=== PATIENT | female | born 1940 | race Caucasian/White ===

== ENCOUNTER 2016-10-15 07:48 | Day surgery (SDC) | payer MEDICARE, MEDICAID ==
[2016-10-11 15:00] LABS: Basophils # (auto) 0 uL; Basophils % (auto) 0.1 % (0.0-2.0); Eosinophils # (auto) 0.3 uL; Eosinophils % (auto) 2.2 % (0.0-7.0); Hematocrit 37.9 % (36.0-46.0); Hemoglobin 12.9 g/dL (12.2-16.2); Lymphocytes # (auto) 2.2 uL; Mean Corpuscular Hemoglobin 31.9 pg (28.0-32.0); Mean Corpuscular Hgb Conc. 33.9 g/dL (32.0-36.0); Mean Corpuscular Volume 94.1 fL (80.0-100.0); Mean Platelet Volume 5.7 fL (7.4-10.4); Monocytes % (auto) 8.1 % (0.0-12.0); Neutrophils # (auto) 9.3 uL; Neutrophils % (auto) 72.6 % (37.0-80.0); Platelet Count (auto) 471 10^3/uL (140-450); White Blood Cell 12.8 10^3/uL (4.4-10.8)
[2016-10-11 15:23] LABS: INR 0.93 (0.9-1.15); Partial Thromboplastin Time 26.1 sec (22.64-33.71)
[2016-10-11 15:51] LABS: Albumin 3.7 g/dL (3.4-5.0); BUN/Creatinine Ratio 20.1; Bilirubin, Total 0.2 mg/dL (0.2-1.0); Calcium 9.7 mg/dL (8.5-10.1); Potassium 3.4 mmol/L (3.5-5.1); Total Protein 7.6 g/dL (6.4-8.2)
[2016-10-12 17:27] LABS: Urine Bilirubin Negative (Negative); Urine Color Yellow (Yellow); Urine Glucose Normal (Normal); Urine Ketone Negative (Negative); Urine Nitrite Negative (Negative); Urine Urobilinogen Normal (Negative); Urine pH 7.5 (5.0-8.0)
[2016-10-12 17:50] LABS: Urine Blood 1+ /uL (Negative)
[~2016-10-15] VITALS: Ht 162.6 cm; Wt 59.0 kg
[~2016-10-15 07:48] MED LIST: AMITRIPTYLINE OR; BUPROPRION OR; ERGO2000 PO; FLUT50SP13; HYDR-4663 PO; HYDR25TA4 OR; LIDO5DIS21 TOP; LISI-646 OR; LORATIDINE OR; MECL-87 PO; PALI6TAB3 PO; POT10T PO; SIMV-13 OR; SYNTHROID OR
[2016-10-15] MEDS ORDERED: MIDAZOLAM HCL 1MG/1ML-2 ML VIAL ONE (09:40)
[2016-10-15] MEDS ORDERED: fentaNYL CITRATE 100 MCG/2 ML VL ONE (09:40)
[2016-10-15] MEDS ORDERED: PROPOFOL 10 MG/ML 20 ML IV ONE (09:41)
[2016-10-15] MEDS ORDERED: ePHEDrine SULFATE 50 MG/ML AMP IV PRN (10:15)
[2016-10-15] MEDS ORDERED: hydrALAZINE HCL 20 MG/ML VL IV PRN (10:15)
[2016-10-15] MEDS ORDERED: ONDANSETRON HCL 4 MG/2 ML VIAL IV ONE (10:15)
[2016-10-15 10:50] VITALS: BP 102/70
[2016-10-15] MEDS ORDERED: fentaNYL CITRATE 100 MCG/2 ML VL IV ONE (11:00)
== END 2016-10-15 10:50 | disposition home or self-care (01) ==
LOC: GI 07:48
PROVIDERS: ATTEND Internal Medicine Gastroenterology
DX: K29.50 Unspecified chronic gastritis without bleeding (principal); K44.9 Diaphragmatic hernia without obstruction or gangrene; N80.9 Endometriosis, unspecified; Z90.710 Acquired absence of both cervix and uterus; F41.0 Panic disorder [episodic paroxysmal anxiety]; F32.9 Major depressive disorder, single episode, unspecified; Z87.891 Personal history of nicotine dependence
CPT/HCPCS: 36415; 43239; 43248; 80053; 81003; 85025; 85610; 85730; 88305; 88342; J2250; J2704; J3010; J7030

== ENCOUNTER 2016-12-24 14:06 | Inpatient (IN) | payer MEDICARE, MEDICAID ==
[~2016-12-24] VITALS: Ht 165.1 cm; Wt 71.8 kg
[2016-12-24] MEDS ORDERED: SODIUM CHLORIDE 0.9% 500 ML IV ONE (14:12)
[2016-12-24] MEDS ORDERED: MORPHINE SULFATE 4 MG/ML SYRG IV ONE (14:15)
[2016-12-24] MEDS ORDERED: ONDANSETRON HCL 4 MG/2 ML VIAL IV ONE (14:15)
[2016-12-24 15:15] LABS: Basophils # (auto) 0 uL; Basophils % (auto) 0.1 % (0.0-2.0); CONDITION Y; DEFINITIVE SEE PRINTOUT; Eosinophils # (auto) 0.1 uL; Eosinophils % (auto) 0.9 % (0.0-7.0); Hematocrit 34.4 % (36.0-46.0); Lymphocytes # (auto) 1.6 uL; Lymphocytes % (auto) 12.3 % (10.0-50.0); Mean Corpuscular Hemoglobin 32.6 pg (28.0-32.0); Mean Corpuscular Hgb Conc. 34.9 g/dL (32.0-36.0); Mean Corpuscular Volume 93.4 fL (80.0-100.0); Mean Platelet Volume 6.4 fL (7.4-10.4); Monocytes # (auto) 1.8 uL; Monocytes % (auto) 14.4 % (0.0-12.0); Neutrophils # (auto) 9.1 uL; Neutrophils % (auto) 72.3 % (37.0-80.0); Platelet Count (auto) 444 10^3/uL (140-450); Red Cell Distribution Width 15.2 % (11.6-16.0); White Blood Cell 12.6 10^3/uL (4.4-10.8)
[2016-12-24 15:21] LABS: Albumin 3.4 g/dL (3.4-5.0); BUN/Creatinine Ratio 16.1; Calcium 8.8 mg/dL (8.5-10.1)
[2016-12-24 15:23] LABS: Bilirubin, Total 0.6 mg/dL (0.2-1.0); Total Protein 7.8 g/dL (6.4-8.2)
[2016-12-24 15:32] LABS: Potassium 2.2 mmol/L (3.5-5.1)
[2016-12-24] MEDS ORDERED: POTASSIUM CHL 20MEQ/100ML 100 ML IV ONE (16:00)
[2016-12-24] MEDS ORDERED: HYDROcodone-ACET 5/325MG TAB PO PRN (18:00)
[2016-12-24] MEDS ORDERED: POTASSIUM CHLORIDE 40 MEQ, LIDOCAINE 1% (LOCAL ANESTH.) 4 ML in SODIUM CHL 0.9% 250 ML IV ONE (18:00)
[2016-12-24] MEDS ORDERED: ONDANSETRON HCL 4 MG/2 ML VIAL IV PRN (18:00)
[2016-12-24] MEDS ORDERED: cefTRIAXone 1GM/50ML D5W 50 ML IV ONE (18:00)
[2016-12-24] MEDS ORDERED: BUSP15TA60 PO (18:09)
[2016-12-24] MEDS ORDERED: MECL1TAB42 PO (18:09)
[2016-12-24] MEDS ORDERED: NITR0.4S29 SL (18:09)
[2016-12-24] MEDS ORDERED: CITA-77 PO (18:09)
[2016-12-24] MEDS ORDERED: FAMO-12 PO (18:09)
[2016-12-24] MEDS ORDERED: SIMV-8 PO (18:09)
[2016-12-24] MEDS ORDERED: ISOS40TA6 PO (18:09)
[2016-12-24] MEDS ORDERED: TRAZ50TA2 PO (18:09)
[2016-12-24] MEDS ORDERED: QUET200T3 PO (18:09)
[2016-12-24] MEDS ORDERED: BUPR150T6 PO (18:09)
[2016-12-24] MEDS ORDERED: LISI-646 PO (18:09)
[2016-12-24] MEDS ORDERED: HYDR25TA4 PO (18:09)
[2016-12-24] MEDS ORDERED: FURO40TA4 PO (18:09)
[2016-12-24] MEDS ORDERED: PANT40T PO (18:09)
[2016-12-24] MEDS ORDERED: LEVO75TA6 PO (18:09)
[2016-12-24] MEDS ORDERED: METO25TA62 PO (18:09)
[2016-12-24] MEDS ORDERED: ASPI81TA13 PO (18:09)
[2016-12-24] MEDS ORDERED: LORA-352 PO (18:09)
[2016-12-24 18:11] LABS: Urine Bilirubin Negative (Negative); Urine Color Yellow (Yellow); Urine Glucose Normal (Normal); Urine Ketone Negative (Negative); Urine Nitrite Negative (Negative); Urine RBC 1 /hpf (0 - 4); Urine Squamous Epithelial Cell FEW /hpf (<5); Urine Urobilinogen Normal (Negative); Urine pH 5.5 (5.0-8.0)
[2016-12-24 18:13] LABS: Urine Blood 1+ /uL (Negative)
[2016-12-24] MEDS ORDERED: MULT1TAB61 PO (18:15)
[2016-12-24] MEDS ORDERED: POTA10SO11 PO (18:15)
[2016-12-24] MEDS ORDERED: FLUT50SP13 (18:15)
[2016-12-24] MEDS ORDERED: HYDR-4663 PO (18:15)
[2016-12-24] MEDS: SOD CHL 0.9%/ KCL 20MEQ 1,000 ML IV SCH (19:17)
[2016-12-24 22:00] VITALS: BP 104/59
[2016-12-24 22:10] VITALS: BP 104/59
[2016-12-24] MEDS: MORPHINE SULF INJ 2 MG/ML SYRINGE 1ML IV PRN (23:28)
[2016-12-25] VITALS (10 sets, daily range): BP systolic 90–111; BP diastolic 48–97
[2016-12-25] MEDS: MORPHINE SULF INJ 2 MG/ML SYRINGE 1ML IV PRN ×5 (05:00→21:02)
[2016-12-25] MEDS: SOD CHL 0.9%/ KCL 20MEQ 1,000 ML IV SCH ×2 (06:02→14:00)
[2016-12-25 06:05] LABS: Basophils # (auto) 0 uL; Basophils % (auto) 0.3 % (0.0-2.0); CONDITION Y; Eosinophils # (auto) 0.1 uL; Eosinophils % (auto) 1.6 % (0.0-7.0); Hemoglobin 11.8 g/dL (12.2-16.2); Lymphocytes # (auto) 2.3 uL; Lymphocytes % (auto) 24.9 % (10.0-50.0); Mean Corpuscular Hemoglobin 32.8 pg (28.0-32.0); Mean Corpuscular Hgb Conc. 34.6 g/dL (32.0-36.0); Mean Corpuscular Volume 94.8 fL (80.0-100.0); Mean Platelet Volume 6.4 fL (7.4-10.4); Monocytes # (auto) 1.4 uL; Monocytes % (auto) 15.6 % (0.0-12.0); Neutrophils # (auto) 5.3 uL; Neutrophils % (auto) 57.6 % (37.0-80.0); Platelet Count (auto) 435 10^3/uL (140-450); Red Cell Distribution Width 15.3 % (11.6-16.0); White Blood Cell 9.2 10^3/uL (4.4-10.8)
[2016-12-25] MEDS: LEVOTHYROXINE SODIUM 25 MCG TAB PO SCH (06:05)
[2016-12-25 06:18] LABS: Calcium 8.4 mg/dL (8.5-10.1); Magnesium 2.2 mg/dL (1.6-2.6); Potassium 3.1 mmol/L (3.5-5.1)
[2016-12-25] MEDS: cefTRIAXone 1GM/50ML D5W 50 ML IV SCH (09:33)
[2016-12-25] MEDS ORDERED: LISINOPRIL 10 MG TAB PO SCH (10:00)
[2016-12-25] MEDS: NITROGLYCERIN 0.4 MG SL TAB SL PRN ×3 (10:59→11:10)
[2016-12-25] MEDS ORDERED: POTASSIUM CHL 20 Meq TABLET PO ONE (14:00)
[2016-12-25] MEDS ORDERED: POTASSIUM CHL 10% (20 MEQ/15ML) ORAL SOLN PO ONE (19:30)
[2016-12-25] MEDS: LORazepam 0.5 MG TAB PO PRN (22:52)
[2016-12-26] MEDS: SOD CHL 0.9%/ KCL 20MEQ 1,000 ML IV SCH ×3 (04:00→18:00)
[2016-12-26 05:00] VITALS: BP 123/68
[2016-12-26 06:21] LABS: Calcium 8.8 mg/dL (8.5-10.1); Potassium 3.6 mmol/L (3.5-5.1)
[2016-12-26 06:29] LABS: BUN/Creatinine Ratio 15.7
[2016-12-26] MEDS: LEVOTHYROXINE SODIUM 25 MCG TAB PO SCH (07:42)
[2016-12-26 08:30] VITALS: BP 103/56
[2016-12-26] MEDS ORDERED: ADENOSINE 57 MG in GIVE UN-DILUTED 0 ML IV ONE (09:30)
[2016-12-26] MEDS: cefTRIAXone 1GM/50ML D5W 50 ML IV SCH (10:39)
[2016-12-26 12:30] VITALS: BP 130/65
[2016-12-26] MEDS: LORazepam 0.5 MG TAB PO PRN ×2 (14:08→22:29)
[2016-12-26] MEDS ORDERED: MORPHINE SULFATE 4 MG/ML SYRG IV PRN ×2 (14:32→14:33)
[2016-12-26 16:25] LABS: BUN/Creatinine Ratio 12.5; Calcium 8.9 mg/dL (8.5-10.1); Potassium 3.5 mmol/L (3.5-5.1)
[2016-12-26 16:52] VITALS: BP 102/65
[2016-12-26 22:39] VITALS: BP 109/64
[2016-12-27 06:07] VITALS: BP 96/50
[2016-12-27] MEDS: LEVOTHYROXINE SODIUM 25 MCG TAB PO SCH (06:53)
[2016-12-27 08:12] VITALS: BP 106/52
[2016-12-27 08:17] VITALS: BP 106/52
[2016-12-27] MEDS: SOD CHL 0.9%/ KCL 20MEQ 1,000 ML IV SCH (10:40)
== END 2016-12-27 12:40 | disposition home health service (06) | DRG 871 ==
LOC: EDBD 14:06 → ER 14:13 → TELE 14:14 → TELE-WESTW 22:00
PROVIDERS: ADMIT Internal Medicine; ATTEND Internal Medicine
DX: A41.9 Sepsis, unspecified organism (principal); J96.00 Acute respiratory failure, unspecified whether with hypoxia or hypercapnia; N17.0 Acute kidney failure with tubular necrosis; E87.1 Hypo-osmolality and hyponatremia; I13.0 Hypertensive heart and chronic kidney disease with heart failure and stage 1 through stage 4 chronic kidney disease, or unspecified chronic kidney disease; N39.0 Urinary tract infection, site not specified; E87.6 Hypokalemia; I10 Essential (primary) hypertension; F41.9 Anxiety disorder, unspecified; E03.9 Hypothyroidism, unspecified; N18.3 Chronic kidney disease, stage 3 (moderate); J43.9 Emphysema, unspecified; I25.10 Atherosclerotic heart disease of native coronary artery without angina pectoris; E78.5 Hyperlipidemia, unspecified; E87.8 Other disorders of electrolyte and fluid balance, not elsewhere classified; F20.9 Schizophrenia, unspecified; F41.0 Panic disorder [episodic paroxysmal anxiety]; F32.9 Major depressive disorder, single episode, unspecified; M19.90 Unspecified osteoarthritis, unspecified site; I50.9 Heart failure, unspecified; K21.9 Gastro-esophageal reflux disease without esophagitis; K29.70 Gastritis, unspecified, without bleeding; Z60.2 Problems related to living alone; E86.0 Dehydration; M47.9 Spondylosis, unspecified; Z91.81 History of falling; Z79.899 Other long term (current) drug therapy; Z90.49 Acquired absence of other specified parts of digestive tract; Z90.710 Acquired absence of both cervix and uterus; Z80.8 Family history of malignant neoplasm of other organs or systems; Z82.49 Family history of ischemic heart disease and other diseases of the circulatory system; Z87.891 Personal history of nicotine dependence
CPT/HCPCS: 36415; 71250; 72040; 80048; 80053; 81001; 83735; 84439; 84443; 84481; 84484; 85025; 87086; 93005; 93017; 94761; 96361; 96365; 96366; 96375; 97116; 97530; J0153; J0696; J2001; J2405; J3480

== ENCOUNTER 2017-01-02 22:24 | Emergency (ER) | payer MEDICARE, MEDICAID ==
[~2017-01-02] VITALS: Ht 162.6 cm; Wt 56.7 kg
[~2017-01-02 22:24] MED LIST changes: +ASPI81TA13 PO; +BUPR150T6 PO; -BUPROPRION OR; +BUSP15TA60 PO; +CITA-77 PO; -FLUT50SP13; -HYDR25TA4 OR; +LEVO75TA6 PO; -LIDO5DIS21 TOP; -LISI-646 OR; +LORA-352 PO; -LORATIDINE OR; -MECL-87 PO; +MECL1TAB42 PO; +MULT1TAB61 PO; +NITR0.4S29 SL; +PANT40T PO; -POT10T PO; +QUET200T3 PO; -SIMV-13 OR; +SIMV-8 PO; -SYNTHROID OR
[2017-01-03 01:17] LABS: Basophils # (auto) 0 uL; Basophils % (auto) 0.3 % (0.0-2.0); CONDITION Y; Eosinophils # (auto) 0.3 uL; Eosinophils % (auto) 3.5 % (0.0-7.0); Hematocrit 34.9 % (36.0-46.0); Hemoglobin 11.9 g/dL (12.2-16.2); Lymphocytes % (auto) 30.3 % (10.0-50.0); Mean Corpuscular Hemoglobin 32.5 pg (28.0-32.0); Mean Corpuscular Volume 95.5 fL (80.0-100.0); Mean Platelet Volume 5.8 fL (7.4-10.4); Monocytes % (auto) 9.5 % (0.0-12.0); Neutrophils # (auto) 5.6 uL; Neutrophils % (auto) 56.4 % (37.0-80.0); Platelet Count (auto) 571 10^3/uL (140-450); Red Cell Distribution Width 15.1 % (11.6-16.0)
[2017-01-03 01:50] LABS: Albumin 3.6 g/dL (3.4-5.0); Potassium 3.8 mmol/L (3.5-5.1)
[2017-01-03 01:52] LABS: BUN/Creatinine Ratio 10.5
[2017-01-03 01:55] LABS: Bilirubin, Total 0.3 mg/dL (0.2-1.0); Total Protein 7.5 g/dL (6.4-8.2)
[2017-01-03 02:54] LABS: Urine Bilirubin Negative (Negative); Urine Blood Negative /uL (Negative); Urine Color Yellow (Yellow); Urine Glucose Normal (Normal); Urine Ketone Negative (Negative); Urine Mucus FEW (None Seen); Urine Nitrite Negative (Negative); Urine RBC 1 /hpf (0 - 4); Urine Squamous Epithelial Cell FEW /hpf (<5); Urine Urobilinogen Normal (Negative)
[2017-01-03] MEDS ORDERED: NITROFURANTOIN (MONO) 100 mg CAP PO ONE (08:30)
[2017-01-03 09:05] VITALS: BP 118/74
== END 2017-01-03 09:13 | disposition home or self-care (01) ==
LOC: ER 22:24 → EDBD 22:24 → ER 01-03 09:13
DX: N39.0 Urinary tract infection, site not specified (principal); M19.90 Unspecified osteoarthritis, unspecified site; E78.5 Hyperlipidemia, unspecified; J43.9 Emphysema, unspecified; I12.9 Hypertensive chronic kidney disease with stage 1 through stage 4 chronic kidney disease, or unspecified chronic kidney disease; N18.9 Chronic kidney disease, unspecified; Z87.891 Personal history of nicotine dependence; E07.9 Disorder of thyroid, unspecified; Z87.440 Personal history of urinary (tract) infections; Z90.710 Acquired absence of both cervix and uterus; Z90.49 Acquired absence of other specified parts of digestive tract
CPT/HCPCS: 36415; 80053; 81001; 85025

== ENCOUNTER → 2017-04-03 | Outpatient (CLI) | payer MEDICARE, MEDICAID ==
[~2017-04-03] MED LIST changes: +ALBU18 IN; +AMIT50TA3 PO; -AMITRIPTYLINE OR; +CHOL20007 PO; -ERGO2000 PO; +FAMO-12 PO; +FLUT50SP13; +FURO40TA4 PO; +HCTZ25T PO; +ISOS60TA24 PO; +LISI-646 PO; +METO25TA62 PO; -MULT1TAB61 PO; -PALI6TAB3 PO; +POTA10SO11 PO; +TRAZ50TA2 PO
[2017-04-03 16:28] LABS: BUN/Creatinine Ratio 13.1; Calcium 9.4 mg/dL (8.5-10.1); Potassium 3.7 mmol/L (3.5-5.1); Uric Acid 5.6 mg/dL (2.6-6.0)
== END | disposition home or self-care (01) ==
LOC: LAB 15:46
PROVIDERS: ATTEND Surgery
DX: N18.3 Chronic kidney disease, stage 3 (moderate) (principal); E03.9 Hypothyroidism, unspecified
CPT/HCPCS: 36415; 80048; 84443; 84550

== ENCOUNTER → 2017-05-30 | Outpatient (CLI) | payer MEDICARE, MEDICAID ==
[~2017-05-30] MED LIST changes: -ALBU18 IN; -BUPR150T6 PO; +CLIN1CAP3 PO; -FAMO-12 PO; -FURO40TA4 PO; -HYDR-4663 PO; +HYDR-4683 PO; -ISOS60TA24 PO; -POTA10SO11 PO
[2017-05-30 16:25] LABS: Basophils # (auto) 0.1 uL; Basophils % (auto) 0.5 % (0.0-2.0); Eosinophils # (auto) 0.3 uL; Hematocrit 35.8 % (36.0-46.0); Hemoglobin 12.3 g/dL (12.2-16.2); Lymphocytes # (auto) 3.1 uL; Mean Corpuscular Hemoglobin 32.8 pg (28.0-32.0); Mean Corpuscular Hgb Conc. 34.3 g/dL (32.0-36.0); Mean Corpuscular Volume 95.8 fL (80.0-100.0); Mean Platelet Volume 6.3 fL (6.9-10.8); Monocytes # (auto) 0.9 uL; Monocytes % (auto) 8.5 % (0.0-12.0); Nucleated Red Blood Cells % 0.1 %; Platelet Count (auto) 341 10^3/uL (140-450); Red Cell Distribution Width 14.8 % (11.8-14.3); White Blood Cell 10.4 10^3/uL (4.4-10.8)
[2017-05-30 16:45] LABS: Albumin 3.6 g/dL (3.4-5.0); BUN/Creatinine Ratio 15.4; Bilirubin, Total 0.4 mg/dL (0.2-1.0); Calcium 9.2 mg/dL (8.5-10.1); Total Protein 7.2 g/dL (6.4-8.2); Uric Acid 7.2 mg/dL (2.6-6.0)
[2017-05-30 16:49] LABS: Potassium 2.9 mmol/L (3.5-5.1)
== END | disposition home or self-care (01) ==
LOC: LAB 14:44
PROVIDERS: ATTEND Physician Assistant
DX: I13.0 Hypertensive heart and chronic kidney disease with heart failure and stage 1 through stage 4 chronic kidney disease, or unspecified chronic kidney disease (principal); N18.3 Chronic kidney disease, stage 3 (moderate); I50.9 Heart failure, unspecified; K29.00 Acute gastritis without bleeding; R94.6 Abnormal results of thyroid function studies; M10.9 Gout, unspecified; J44.9 Chronic obstructive pulmonary disease, unspecified
CPT/HCPCS: 36415; 80053; 80061; 84443; 84550; 85025

== ENCOUNTER → 2017-06-03 | Outpatient (CLI) | payer MEDICARE, MEDICAID ==
[2017-06-03 14:09] LABS: Urine Bilirubin Negative (Negative); Urine Blood TRACE /uL (Negative); Urine Color Yellow (Yellow); Urine Glucose Normal (Normal); Urine Ketone Negative (Negative); Urine Mucus FEW (None Seen); Urine Nitrite Negative (Negative); Urine RBC 1 /hpf (0 - 4); Urine Urobilinogen Normal (Negative); Urine pH 6.5 (5.0-8.0)
[2017-06-03 14:10] LABS: Basophils # (auto) 0 uL; Basophils % (auto) 0.2 % (0.0-2.0); Eosinophils # (auto) 0.6 uL; Hematocrit 37.6 % (36.0-46.0); Hemoglobin 12.9 g/dL (12.2-16.2); Lymphocytes # (auto) 3.1 uL; Lymphocytes % (auto) 42.1 % (10.0-50.0); Mean Corpuscular Hemoglobin 33.1 pg (28.0-32.0); Mean Corpuscular Hgb Conc. 34.3 g/dL (32.0-36.0); Mean Corpuscular Volume 96.6 fL (80.0-100.0); Mean Platelet Volume 6.7 fL (6.9-10.8); Monocytes # (auto) 0.7 uL; Monocytes % (auto) 9.7 % (0.0-12.0); Platelet Count (auto) 358 10^3/uL (140-450); White Blood Cell 7.5 10^3/uL (4.4-10.8)
[2017-06-03 14:33] LABS: Albumin 3.4 g/dL (3.4-5.0); BUN/Creatinine Ratio 20.1; Bilirubin, Total 0.2 mg/dL (0.2-1.0); Calcium 9.2 mg/dL (8.5-10.1); Phosphorus 3.6 mg/dL (2.5-4.90); Potassium 3.9 mmol/L (3.5-5.1); Total Protein 7.2 g/dL (6.4-8.2); Uric Acid 6.4 mg/dL (2.6-6.0)
[2017-06-03 15:03] LABS: Urine Protein/Creatinine Ratio 0.26
== END | disposition home or self-care (01) ==
LOC: LAB 12:51
PROVIDERS: ATTEND Internal Medicine
DX: E87.6 Hypokalemia (principal); I13.0 Hypertensive heart and chronic kidney disease with heart failure and stage 1 through stage 4 chronic kidney disease, or unspecified chronic kidney disease; N18.3 Chronic kidney disease, stage 3 (moderate); I50.9 Heart failure, unspecified; J44.9 Chronic obstructive pulmonary disease, unspecified
CPT/HCPCS: 36415; 80053; 80069; 81001; 82306; 82570; 83970; 84156; 84550; 85025

== ENCOUNTER → 2017-11-28 | Outpatient (CLI) | payer MEDICARE, MEDICAID ==
[2017-11-28 15:24] LABS: Eosinophils # (auto) 0.3 uL; Monocytes # (auto) 0.8 uL
[2017-11-28 15:26] LABS: Basophils # (auto) 0 uL; Basophils % (auto) 0.4 % (0.0-2.0); Eosinophils % (auto) 3.8 % (0.0-7.0); Hematocrit 37.5 % (36.0-46.0); Lymphocytes # (auto) 2.3 uL; Mean Corpuscular Hemoglobin 32.7 pg (28.0-32.0); Mean Corpuscular Hgb Conc. 34.6 g/dL (32.0-36.0); Mean Corpuscular Volume 94.5 fL (80.0-100.0); Monocytes % (auto) 10.5 % (0.0-12.0); Neutrophils % (auto) 54.3 % (37.0-80.0); Platelet Count (auto) 490 10^3/uL (140-450); Red Blood Cells 3.97 10^6/uL (4.0-5.20); Red Cell Distribution Width 13.5 % (11.8-14.3); White Blood Cell 7.4 10^3/uL (4.4-10.8)
[2017-11-28 15:30] LABS: Urine Bacteria NONE SEEN /hpf (None Seen); Urine Blood TRACE /uL (Negative); Urine Mucus FEW (None Seen); Urine Specific Gravity 1.004 (1.001-1.035); Urine WBC 4 /hpf (0 - 5)
[2017-11-28 15:42] LABS: Albumin 3.9 g/dL (3.4-5.0); BUN/Creatinine Ratio 17.2; Calcium 9.6 mg/dL (8.5-10.1); Phosphorus 3.3 mg/dL (2.5-4.90); Uric Acid 5.7 mg/dL (2.6-6.0)
[2017-11-28 17:11] LABS: Creatinine, Urine 7 mg/dL (30.0-125.0); Protein, Urine < 5.0 mg/dL (0.0-11.9)
== END | disposition home or self-care (01) ==
LOC: LAB 14:52
PROVIDERS: ATTEND Internal Medicine
DX: N18.3 Chronic kidney disease, stage 3 (moderate) (principal); D63.1 Anemia in chronic kidney disease; E21.3 Hyperparathyroidism, unspecified; E78.5 Hyperlipidemia, unspecified; M10.9 Gout, unspecified; R80.9 Proteinuria, unspecified; E55.9 Vitamin D deficiency, unspecified; I10 Essential (primary) hypertension; N39.0 Urinary tract infection, site not specified
CPT/HCPCS: 36415; 80048; 80069; 81001; 82306; 82570; 84156; 84443; 84550; 85025

== ENCOUNTER → 2018-02-12 | Outpatient (CLI) | payer MEDICARE, MEDICAID | END | disposition home or self-care (01) | LOC: Rad HDHVI 15:41 | PROVIDERS: ATTEND Internal Medicine Cardiovascular Disease | DX: I49.5 Sick sinus syndrome (principal); I13.0 Hypertensive heart and chronic kidney disease with heart failure and stage 1 through stage 4 chronic kidney disease, or unspecified chronic kidney disease; N18.3 Chronic kidney disease, stage 3 (moderate); I50.43 Acute on chronic combined systolic (congestive) and diastolic (congestive) heart failure; J44.9 Chronic obstructive pulmonary disease, unspecified; Z79.899 Other long term (current) drug therapy | CPT/HCPCS: 93306 ==

== ENCOUNTER → 2018-02-20 | Outpatient (CLI) | payer MEDICARE, MEDICAID ==
[~2018-02-20] VITALS: Ht 160 cm; Wt 55.8 kg
[~2018-02-20] MED LIST changes: +ADENOSINE 47 MG in GIVE UN-DILUTED 0 ML IV ONE; +ADENOSINE 90 MG/30 ML INJ IV ONE
== END | disposition home or self-care (01) ==
LOC: Rad HDHVI 14:10
PROVIDERS: ATTEND Internal Medicine Cardiovascular Disease
DX: I13.0 Hypertensive heart and chronic kidney disease with heart failure and stage 1 through stage 4 chronic kidney disease, or unspecified chronic kidney disease (principal); N18.3 Chronic kidney disease, stage 3 (moderate); I50.43 Acute on chronic combined systolic (congestive) and diastolic (congestive) heart failure; I49.5 Sick sinus syndrome; J44.9 Chronic obstructive pulmonary disease, unspecified
CPT/HCPCS: 78452; 93005; 96374; 96375; A9500; J0153

== ENCOUNTER → 2018-04-24 | Outpatient (CLI) | payer MEDICARE, MEDICAID ==
[~2018-04-24] MED LIST changes: -ADENOSINE 47 MG in GIVE UN-DILUTED 0 ML IV ONE; -ADENOSINE 90 MG/30 ML INJ IV ONE; +ASPI1TAB19 PO; -ASPI81TA13 PO
[2018-04-24 16:51] LABS: Urine Blood Negative /uL (Negative); Urine Specific Gravity 1.008 (1.001-1.035)
[2018-04-24 17:01] LABS: Basophils # (auto) 0 uL; Eosinophils # (auto) 0.3 uL; Hemoglobin 14.1 g/dL (12.2-16.2); Lymphocytes # (auto) 2.4 uL; Monocytes # (auto) 0.6 uL; Nucleated Red Blood Cells % 0.1 %
[2018-04-24 17:04] LABS: Basophils % (auto) 0.5 % (0.0-2.0); Eosinophils % (auto) 3.8 % (0.0-7.0); Lymphocytes % (auto) 33.6 % (10.0-50.0); Mean Corpuscular Hgb Conc. 34.5 g/dL (32.0-36.0); Mean Corpuscular Volume 95.6 fL (80.0-100.0); Monocytes % (auto) 8.8 % (0.0-12.0); Neutrophils # (auto) 3.8 uL; Neutrophils % (auto) 53.3 % (37.0-80.0); Platelet Count (auto) 449 10^3/uL (140-450); Red Blood Cells 4.29 10^6/uL (4.0-5.20); Red Cell Distribution Width 15.2 % (11.8-14.3); White Blood Cell 7.2 10^3/uL (4.4-10.8)
[2018-04-24 17:07] LABS: Albumin 3.8 g/dL (3.4-5.0); Calcium 9.7 mg/dL (8.5-10.1); Potassium 3.9 mmol/L (3.5-5.1)
[2018-04-24 17:11] LABS: BUN/Creatinine Ratio 12.1; Bilirubin, Total 0.4 mg/dL (0.2-1.0); Total Protein 7.8 g/dL (6.4-8.2)
[2018-04-24 17:12] LABS: Free T4 (Free Thyroxine) 1.18 ng/dL (0.89-1.76)
== END | disposition home or self-care (01) ==
LOC: LAB 16:31
PROVIDERS: ATTEND Internal Medicine Cardiovascular Disease
DX: Z00.01 Encounter for general adult medical examination with abnormal findings (principal); E11.9 Type 2 diabetes mellitus without complications; N39.0 Urinary tract infection, site not specified; D51.9 Vitamin B12 deficiency anemia, unspecified; E55.9 Vitamin D deficiency, unspecified; E03.9 Hypothyroidism, unspecified
CPT/HCPCS: 36415; 80053; 80061; 81003; 82306; 82607; 83036; 84439; 84443; 85025

== ENCOUNTER → 2018-07-23 | Outpatient (CLI) | payer MEDICARE, MEDICAID ==
[2018-07-23 15:40] LABS: Basophils # (auto) 0 uL; Basophils % (auto) 0.3 % (0.0-2.0); Eosinophils # (auto) 0.4 uL; Eosinophils % (auto) 5.9 % (0.0-7.0); Hematocrit 39.5 % (36.0-46.0); Hemoglobin 13.4 g/dL (12.2-16.2); Lymphocytes # (auto) 2.9 uL; Lymphocytes % (auto) 39.4 % (10.0-50.0); Mean Corpuscular Hemoglobin 32.2 pg (28.0-32.0); Mean Corpuscular Hgb Conc. 33.9 g/dL (32.0-36.0); Mean Corpuscular Volume 94.8 fL (80.0-100.0); Monocytes # (auto) 0.6 uL; Monocytes % (auto) 8.1 % (0.0-12.0); Neutrophils # (auto) 3.4 uL; Neutrophils % (auto) 46.3 % (37.0-80.0); Nucleated Red Blood Cells % 0.1 %; Platelet Count (auto) 427 10^3/uL (140-450); Red Blood Cells 4.16 10^6/uL (4.0-5.20); Red Cell Distribution Width 13.3 % (11.8-14.3); White Blood Cell 7.3 10^3/uL (4.4-10.8)
[2018-07-23 15:49] LABS: Urine Bacteria NONE SEEN /hpf (None Seen); Urine Blood TRACE /uL (Negative); Urine Hyaline Cast FEW /lpf (0 - 2); Urine Specific Gravity 1.004 (1.001-1.035); Urine WBC <1 /hpf (0 - 5)
[2018-07-23 16:03] LABS: Albumin 3.8 g/dL (3.4-5.0); BUN/Creatinine Ratio 19.2; Calcium 9.2 mg/dL (8.5-10.1); Phosphorus 3.5 mg/dL (2.5-4.90); Potassium 4.7 mmol/L (3.5-5.1); Uric Acid 7.3 mg/dL (2.6-6.0)
[2018-07-23 16:12] LABS: Protein, Urine < 5.0 mg/dL (0.0-11.9)
[2018-07-23 16:14] LABS: Creatinine, Urine 11.2 mg/dL (30.0-125.0)
== END | disposition home or self-care (01) ==
LOC: LAB 15:13
PROVIDERS: ATTEND Internal Medicine
DX: I13.0 Hypertensive heart and chronic kidney disease with heart failure and stage 1 through stage 4 chronic kidney disease, or unspecified chronic kidney disease (principal); I50.9 Heart failure, unspecified; N18.3 Chronic kidney disease, stage 3 (moderate); E55.9 Vitamin D deficiency, unspecified; D63.1 Anemia in chronic kidney disease; E78.5 Hyperlipidemia, unspecified; M10.9 Gout, unspecified; R80.9 Proteinuria, unspecified; E21.3 Hyperparathyroidism, unspecified
CPT/HCPCS: 36415; 80069; 81001; 82306; 82570; 83970; 84156; 84550; 85025

== ENCOUNTER → 2019-01-21 | Outpatient (CLI) | payer MEDICARE, MEDICAID ==
[~2019-01-21] MED LIST changes: +CLIN150C7 PO; -CLIN1CAP3 PO; -HYDR-4683 PO; +HYDR-4833 PO
[2019-01-21 16:13] LABS: Basophils # (auto) 0.1 uL; Basophils % (auto) 0.6 % (0.0-2.0); Eosinophils # (auto) 0.4 uL; Eosinophils % (auto) 3.6 % (0.0-7.0); Hematocrit 41.7 % (36.0-46.0); Hemoglobin 13.9 g/dL (12.2-16.2); Lymphocytes # (auto) 2.9 uL; Lymphocytes % (auto) 28.1 % (10.0-50.0); Mean Corpuscular Hemoglobin 32.4 pg (28.0-32.0); Mean Corpuscular Hgb Conc. 33.4 g/dL (32.0-36.0); Monocytes # (auto) 0.9 uL; Neutrophils % (auto) 58.7 % (37.0-80.0); Platelet Count (auto) 415 10^3/uL (140-450); Red Cell Distribution Width 14.6 % (11.8-14.3); White Blood Cell 10.2 10^3/uL (4.4-10.8)
[2019-01-21 16:48] LABS: Albumin 3.7 g/dL (3.4-5.0); Calcium 9.6 mg/dL (8.5-10.1); Potassium 5.2 mmol/L (3.5-5.1)
[2019-01-21 16:55] LABS: BUN/Creatinine Ratio 15.1; Bilirubin, Total 0.4 mg/dL (0.2-1.0); Total Protein 7.5 g/dL (6.4-8.2)
== END | disposition home or self-care (01) ==
LOC: LAB 15:54
PROVIDERS: ATTEND Physician Assistant
DX: I13.0 Hypertensive heart and chronic kidney disease with heart failure and stage 1 through stage 4 chronic kidney disease, or unspecified chronic kidney disease (principal); I50.30 Unspecified diastolic (congestive) heart failure; N18.3 Chronic kidney disease, stage 3 (moderate); J44.9 Chronic obstructive pulmonary disease, unspecified; N94.6 Dysmenorrhea, unspecified; K21.9 Gastro-esophageal reflux disease without esophagitis
CPT/HCPCS: 36415; 80053; 80061; 84443; 85025

== ENCOUNTER → 2019-02-02 | Outpatient (CLI) | payer MEDICARE, MEDICAID ==
[2019-02-02 16:30] LABS: Urine Blood Negative /uL (Negative); Urine Specific Gravity 1.004 (1.001-1.035)
[2019-02-02 16:53] LABS: Creatinine, Urine 17 mg/dL (30.0-125.0); Protein, Urine < 5.0 mg/dL (0.0-11.9)
[2019-02-02 16:54] LABS: Albumin 3.4 g/dL (3.4-5.0); BUN/Creatinine Ratio 11.1; Phosphorus 3.5 mg/dL (2.5-4.90); Potassium 4.2 mmol/L (3.5-5.1); Uric Acid 7.7 mg/dL (2.6-6.0)
[2019-02-02 17:33] LABS: Basophils # (auto) 0 uL; Basophils % (auto) 0.3 % (0.0-2.0); Eosinophils # (auto) 0.4 uL; Eosinophils % (auto) 5.1 % (0.0-7.0); Hematocrit 37.2 % (36.0-46.0); Hemoglobin 12.4 g/dL (12.2-16.2); Lymphocytes # (auto) 3.1 uL; Lymphocytes % (auto) 35.3 % (10.0-50.0); Mean Corpuscular Hemoglobin 32.4 pg (28.0-32.0); Mean Corpuscular Hgb Conc. 33.4 g/dL (32.0-36.0); Mean Corpuscular Volume 97.2 fL (80.0-100.0); Monocytes # (auto) 0.9 uL; Neutrophils # (auto) 4.3 uL; Neutrophils % (auto) 49.3 % (37.0-80.0); Nucleated Red Blood Cells % 0.1 %; Platelet Count (auto) 342 10^3/uL (140-450); Red Blood Cells 3.83 10^6/uL (4.0-5.20); White Blood Cell 8.7 10^3/uL (4.4-10.8)
== END | disposition home or self-care (01) ==
LOC: LAB 15:49
PROVIDERS: ATTEND Internal Medicine
DX: E55.9 Vitamin D deficiency, unspecified (principal); M10.9 Gout, unspecified; N39.0 Urinary tract infection, site not specified; E21.3 Hyperparathyroidism, unspecified; N18.3 Chronic kidney disease, stage 3 (moderate); D63.1 Anemia in chronic kidney disease
CPT/HCPCS: 36415; 80069; 81003; 82306; 82570; 83970; 84156; 84550; 85025; 87086

== ENCOUNTER 2019-02-03 15:57 | Emergency (ER) | payer MEDICARE, MEDICAID ==
[~2019-02-03] VITALS: Ht 165.1 cm; Wt 63.5 kg
[2019-02-03 16:01] VITALS: BP 121/65
[2019-02-03 16:57] LABS: Urine WBC None Seen /hpf (0 - 5)
[2019-02-03 17:31] LABS: Urine Bacteria NONE SEEN /hpf (None Seen); Urine Blood Negative /uL (Negative); Urine Specific Gravity 1.002 (1.001-1.035)
[2019-02-03 20:06] LABS: Basophils # (auto) 0 uL; Basophils % (auto) 0.4 % (0.0-2.0); Eosinophils # (auto) 0.6 uL; Eosinophils % (auto) 7.1 % (0.0-7.0); Hematocrit 37.1 % (36.0-46.0); Hemoglobin 12.6 g/dL (12.2-16.2); Lymphocytes # (auto) 3.3 uL; Mean Corpuscular Hemoglobin 32.8 pg (28.0-32.0); Mean Corpuscular Hgb Conc. 33.9 g/dL (32.0-36.0); Mean Corpuscular Volume 96.9 fL (80.0-100.0); Monocytes # (auto) 0.9 uL; Monocytes % (auto) 9.7 % (0.0-12.0); Neutrophils # (auto) 4.1 uL; Neutrophils % (auto) 45.8 % (37.0-80.0); Nucleated Red Blood Cells % 0.1 %; Platelet Count (auto) 388 10^3/uL (140-450); Red Blood Cells 3.83 10^6/uL (4.0-5.20); Red Cell Distribution Width 14.1 % (11.8-14.3)
[2019-02-03 20:16] LABS: BUN/Creatinine Ratio 12.6; Calcium 8.8 mg/dL (8.5-10.1); Potassium 3.5 mmol/L (3.5-5.1)
[2019-02-03 20:19] LABS: Albumin 3.4 g/dL (3.4-5.0); Bilirubin, Total 0.2 mg/dL (0.2-1.0); Total Protein 6.6 g/dL (6.4-8.2)
== END 2019-02-03 21:58 | disposition left against medical advice (07) ==
LOC: EDBD 15:57 → ER 16:13
DX: R10.9 Unspecified abdominal pain (principal); R45.851 Suicidal ideations; I48.91 Unspecified atrial fibrillation; I11.0 Hypertensive heart disease with heart failure; I50.9 Heart failure, unspecified; E78.5 Hyperlipidemia, unspecified; Z87.440 Personal history of urinary (tract) infections; Z90.710 Acquired absence of both cervix and uterus; Z87.81 Personal history of (healed) traumatic fracture
CPT/HCPCS: 36415; 74176; 80053; 81001; 85025; 93005

== ENCOUNTER → 2019-03-27 | Outpatient (CLI) | payer MEDICARE, MEDICAID ==
[~2019-03-27] MED LIST changes: +READI-CAT 2 (BARIUM SULF)(VANILLA SMOOTHIE) 450ML ONE
[2019-03-27 15:58] LABS: Urine Blood TRACE /uL (Negative); Urine Specific Gravity 1.006 (1.001-1.035)
== END | disposition home or self-care (01) ==
LOC: Rad HDHVI 15:01
PROVIDERS: ATTEND Internal Medicine Cardiovascular Disease
DX: N26.1 Atrophy of kidney (terminal) (principal); I70.0 Atherosclerosis of aorta; J43.9 Emphysema, unspecified; N39.0 Urinary tract infection, site not specified
CPT/HCPCS: 74176; 81003; 87086

== ENCOUNTER 2019-04-27 10:12 | Day surgery (SDC) | payer MEDICARE, MEDICAID ==
[2019-04-24 15:28] LABS: Basophils % (auto) 0.5 % (0.0-2.0); Eosinophils # (auto) 0.3 uL; Lymphocytes # (auto) 2.4 uL; Mean Corpuscular Volume 96.6 fL (80.0-100.0)
[2019-04-24 15:30] LABS: Basophils # (auto) 0.1 uL; Eosinophils % (auto) 2.5 % (0.0-7.0); Hematocrit 39.3 % (36.0-46.0); Hemoglobin 13.2 g/dL (12.2-16.2); Lymphocytes % (auto) 23.1 % (10.0-50.0); Mean Corpuscular Hemoglobin 32.5 pg (28.0-32.0); Mean Corpuscular Hgb Conc. 33.6 g/dL (32.0-36.0); Monocytes # (auto) 0.7 uL; Monocytes % (auto) 6.8 % (0.0-12.0); Neutrophils # (auto) 6.9 uL; Neutrophils % (auto) 67.1 % (37.0-80.0); Platelet Count (auto) 479 10^3/uL (140-450); Red Blood Cells 4.07 10^6/uL (4.0-5.20); Red Cell Distribution Width 14.6 % (11.8-14.3); Urine Bacteria NONE SEEN /hpf (None Seen); Urine Blood TRACE /uL (Negative); Urine Hyaline Cast FEW /lpf (0 - 2); Urine Specific Gravity 1.005 (1.001-1.035); Urine WBC <1 /hpf (0 - 5); White Blood Cell 10.3 10^3/uL (4.4-10.8)
[2019-04-24 15:51] LABS: Albumin 3.7 g/dL (3.4-5.0); BUN/Creatinine Ratio 17.4; Bilirubin, Total 0.4 mg/dL (0.2-1.0); Calcium 9.4 mg/dL (8.5-10.1); Potassium 4.8 mmol/L (3.5-5.1); Total Protein 7.5 g/dL (6.4-8.2)
[~2019-04-27] VITALS: Ht 157.5 cm; Wt 53.1 kg
[~2019-04-27 10:12] MED LIST changes: +ACE3T PO; +FAMO-12 PO; -FLUT50SP13; +FURO20TA3 PO; -HCTZ25T PO; -HYDR-4833 PO; +HYDR12.56 PO; +ISOS30TA4 PO; +LORA10CA12 PO; -MECL1TAB42 PO; +ONDA-144 PO; -QUET200T3 PO; +RANITAB8 PO; -READI-CAT 2 (BARIUM SULF)(VANILLA SMOOTHIE) 450ML ONE
[2019-04-27] MEDS ORDERED: ONDANSETRON HCL 4 MG/2 ML VIAL ONE (11:08)
[2019-04-27] MEDS ORDERED: PROPOFOL 10 MG/ML 20 ML IV ONE (11:08)
[2019-04-27] MEDS ORDERED: MIDAZOLAM HCL 1MG/1ML-2 ML VIAL ONE (11:08)
[2019-04-27] MEDS ORDERED: SODIUM CHLORIDE LOCK 10 ML ONE (11:08)
[2019-04-27] MEDS ORDERED: fentaNYL CITRATE 100 MCG/2 ML VL ONE (11:08)
[2019-04-27 11:22] LABS: INR 0.99 (0.9-1.15); Partial Thromboplastin Time 27.8 sec (23.64-32.05)
[2019-04-27] MEDS ORDERED: HYDROmorphone HCL 2 MG/ML VL IV PRN (12:30)
[2019-04-27] MEDS ORDERED: MORPHINE SULFATE 4 MG/ML SYR/VIAL IV PRN (12:30)
[2019-04-27] MEDS ORDERED: METOCLOPRAMIDE HCL 5MG/ml INJ 2ml VIAL IV PRN (12:30)
[2019-04-27] MEDS ORDERED: fentaNYL CITRATE 100 MCG/2 ML VL IV PRN (12:30)
[2019-04-27 13:27] VITALS: BP 152/79
== END 2019-04-27 13:40 | disposition home or self-care (01) ==
LOC: GI 10:12
PROVIDERS: ATTEND Internal Medicine Gastroenterology
DX: K92.1 Melena (principal); D12.5 Benign neoplasm of sigmoid colon; K29.50 Unspecified chronic gastritis without bleeding; K57.30 Diverticulosis of large intestine without perforation or abscess without bleeding; K64.8 Other hemorrhoids; K21.9 Gastro-esophageal reflux disease without esophagitis; I70.0 Atherosclerosis of aorta; I12.9 Hypertensive chronic kidney disease with stage 1 through stage 4 chronic kidney disease, or unspecified chronic kidney disease; N18.3 Chronic kidney disease, stage 3 (moderate); D64.9 Anemia, unspecified; I48.91 Unspecified atrial fibrillation; E78.5 Hyperlipidemia, unspecified; J44.9 Chronic obstructive pulmonary disease, unspecified; G47.30 Sleep apnea, unspecified; F41.9 Anxiety disorder, unspecified; F32.9 Major depressive disorder, single episode, unspecified; E66.01 Morbid (severe) obesity due to excess calories; M19.90 Unspecified osteoarthritis, unspecified site; F20.9 Schizophrenia, unspecified; D63.1 Anemia in chronic kidney disease; E03.9 Hypothyroidism, unspecified; Z90.710 Acquired absence of both cervix and uterus; Z68.21 Body mass index [BMI] 21.0-21.9, adult; Z98.890 Other specified postprocedural states; Z79.899 Other long term (current) drug therapy; Z79.82 Long term (current) use of aspirin; Z79.890 Hormone replacement therapy; Z90.49 Acquired absence of other specified parts of digestive tract; Z78.0 Asymptomatic menopausal state
CPT/HCPCS: 36415; 43239; 45385; 80053; 81001; 85025; 85045; 85610; 85730; 88305; 88342; 93005; J2250; J2405; J2704; J3010; J7030

== ENCOUNTER → 2019-05-05 | Outpatient (CLI) | payer MEDICARE, MEDICAID | END | disposition home or self-care (01) | LOC: LAB 15:45 | PROVIDERS: ATTEND Internal Medicine Gastroenterology | DX: R11.2 Nausea with vomiting, unspecified (principal); R10.9 Unspecified abdominal pain | CPT/HCPCS: 36415; 82565; 84520 ==

== ENCOUNTER → 2019-06-17 | Outpatient (CLI) | payer MEDICARE, MEDICAID ==
[~2019-06-17] MED LIST changes: -METO25TA62 PO; +METO25TA93 PO
== END | disposition home or self-care (01) ==
LOC: XY 09:45
PROVIDERS: ATTEND Internal Medicine Gastroenterology
DX: K59.09 Other constipation (principal); R11.2 Nausea with vomiting, unspecified; R10.30 Lower abdominal pain, unspecified
CPT/HCPCS: 78226; A9537

== ENCOUNTER → 2019-07-23 | Outpatient (CLI) | payer MEDICARE, MEDICAID | END | disposition home or self-care (01) | LOC: XY 07:33 | PROVIDERS: ATTEND Internal Medicine Gastroenterology | DX: R11.2 Nausea with vomiting, unspecified (principal); R10.9 Unspecified abdominal pain | CPT/HCPCS: 78264; A9541 ==

== ENCOUNTER → 2019-07-30 | Outpatient (CLI) | payer MEDICARE ==
[2019-07-30 15:57] LABS: Urine Blood TRACE /uL (Negative); Urine Specific Gravity 1.006 (1.001-1.035)
[2019-07-30 16:04] LABS: Basophils # (auto) 0 uL; Basophils % (auto) 0.5 % (0.0-2.0); Eosinophils # (auto) 0.2 uL; Hematocrit 37.7 % (36.0-46.0); Hemoglobin 12.6 g/dL (12.2-16.2); Lymphocytes # (auto) 3.2 uL; Lymphocytes % (auto) 43.4 % (10.0-50.0); Mean Corpuscular Hemoglobin 31.6 pg (28.0-32.0); Mean Corpuscular Hgb Conc. 33.5 g/dL (32.0-36.0); Mean Corpuscular Volume 94.5 fL (80.0-100.0); Monocytes # (auto) 0.6 uL; Neutrophils # (auto) 3.4 uL; Neutrophils % (auto) 45.1 % (37.0-80.0); Nucleated Red Blood Cells % 0.1 %; Platelet Count (auto) 311 10^3/uL (140-450); Red Blood Cells 3.99 10^6/uL (4.0-5.20); Red Cell Distribution Width 14.8 % (11.8-14.3); White Blood Cell 7.4 10^3/uL (4.4-10.8)
[2019-07-30 16:23] LABS: Albumin 3.8 g/dL (3.4-5.0); BUN/Creatinine Ratio 24.2; Calcium 9.3 mg/dL (8.5-10.1); Phosphorus 3.4 mg/dL (2.5-4.90); Potassium 4.3 mmol/L (3.5-5.1); Uric Acid 6.1 mg/dL (2.6-6.0)
[2019-07-30 16:39] LABS: Creatinine, Urine 12 mg/dL (30.0-125.0)
== END | disposition home or self-care (01) ==
LOC: LAB 15:22
PROVIDERS: ATTEND Internal Medicine
DX: E55.9 Vitamin D deficiency, unspecified (principal); R80.8 Other proteinuria
CPT/HCPCS: 36415; 80069; 81003; 82306; 82570; 83970; 84156; 84550; 85025

== ENCOUNTER → 2019-09-02 | Outpatient (CLI) | payer MEDICARE | END | disposition home or self-care (01) | LOC: Rad HDHVI 15:41 | PROVIDERS: ATTEND Internal Medicine Cardiovascular Disease | DX: M21.612 Bunion of left foot (principal); L72.8 Other follicular cysts of the skin and subcutaneous tissue; M79.89 Other specified soft tissue disorders; M25.572 Pain in left ankle and joints of left foot | CPT/HCPCS: 73630 ==

== ENCOUNTER → 2019-09-09 | Outpatient (CLI) | payer MEDICARE, MEDICAID ==
[2019-09-09 12:06] LABS: Basophils # (auto) 0 10 ^3/uL (0-0.2); Basophils % (auto) 0.5 % (0.0-2.0); Eosinophils # (auto) 0.4 10 ^3/uL (0-0.8); Eosinophils % (auto) 4.9 % (0.0-7.0); Hematocrit 34.8 % (36.0-46.0); Hemoglobin 11.8 g/dL (12.2-16.2); Lymphocytes # (auto) 3.2 10 ^3/uL (0.4-5.4); Lymphocytes % (auto) 38.7 % (10.0-50.0); Mean Corpuscular Hemoglobin 32.6 pg (28.0-32.0); Mean Corpuscular Hgb Conc. 33.8 g/dL (32.0-36.0); Mean Corpuscular Volume 96.5 fL (80.0-100.0); Monocytes # (auto) 0.9 10 ^3/uL (0-1.3); Monocytes % (auto) 11.6 % (0.0-12.0); Neutrophils # (auto) 3.6 10 ^3/uL (1.6-8.6); Neutrophils % (auto) 44.3 % (37.0-80.0); Platelet Count (auto) 395 10^3/uL (140-450); Red Blood Cells 3.61 10^6/uL (4.0-5.20); Red Cell Distribution Width 14.8 % (11.8-14.3); White Blood Cell 8.2 10^3/uL (4.4-10.8)
[2019-09-09 12:19] LABS: Albumin 3.3 g/dL (3.4-5.0); Calcium 9.5 mg/dL (8.5-10.1); Potassium 4.3 mmol/L (3.5-5.1)
[2019-09-09 12:25] LABS: BUN/Creatinine Ratio 12.4; Bilirubin, Total 0.2 mg/dL (0.2-1.0)
[2019-09-09 12:28] LABS: Free T4 (Free Thyroxine) 1.16 ng/dL (0.89-1.76)
[2019-09-09 12:34] LABS: Urine Blood Negative /uL (Negative); Urine Specific Gravity 1.005 (1.001-1.035)
== END | disposition home or self-care (01) ==
LOC: Rad HDHVI 09:47
PROVIDERS: ATTEND Internal Medicine Cardiovascular Disease
DX: I08.3 Combined rheumatic disorders of mitral, aortic and tricuspid valves (principal); E03.9 Hypothyroidism, unspecified; K90.9 Intestinal malabsorption, unspecified; N39.0 Urinary tract infection, site not specified; D51.9 Vitamin B12 deficiency anemia, unspecified; I25.10 Atherosclerotic heart disease of native coronary artery without angina pectoris; R53.83 Other fatigue; I31.3 Pericardial effusion (noninflammatory); Z79.899 Other long term (current) drug therapy
CPT/HCPCS: 36415; 80053; 80061; 81003; 82306; 82607; 83036; 84439; 84443; 85025; 93306; 93971

== ENCOUNTER 2019-10-01 17:13 | Inpatient (IN) | payer MEDICARE, MEDICAID ==
[~2019-10-01] VITALS: Ht 157.5 cm; Wt 79.6 kg
[2019-10-01 17:58] LABS: Basophils # (auto) 0 10 ^3/uL (0-0.2); Basophils % (auto) 0.5 % (0.0-2.0); Eosinophils # (auto) 0.3 10 ^3/uL (0-0.8); Eosinophils % (auto) 3.9 % (0.0-7.0); Hematocrit 34.1 % (36.0-46.0); Hemoglobin 11.7 g/dL (12.2-16.2); Lymphocytes # (auto) 2.7 10 ^3/uL (0.4-5.4); Lymphocytes % (auto) 33.5 % (10.0-50.0); Mean Corpuscular Hemoglobin 32.8 pg (28.0-32.0); Mean Corpuscular Hgb Conc. 34.3 g/dL (32.0-36.0); Mean Corpuscular Volume 95.8 fL (80.0-100.0); Monocytes # (auto) 0.5 10 ^3/uL (0-1.3); Monocytes % (auto) 6.3 % (0.0-12.0); Neutrophils # (auto) 4.5 10 ^3/uL (1.6-8.6); Neutrophils % (auto) 55.8 % (37.0-80.0); Nucleated Red Blood Cells % 0.1 %; Platelet Count (auto) 313 10^3/uL (140-450); Red Blood Cells 3.55 10^6/uL (4.0-5.20); Red Cell Distribution Width 14.8 % (11.8-14.3)
[2019-10-01 18:12] LABS: Albumin 3.4 g/dL (3.4-5.0); Anion Gap 5 (5-15); Blood Urea Nitrogen 24 mg/dL (7-18); Calcium 8.4 mg/dL (8.5-10.1); Carbon Dioxide 23 mmol/L (21-32); Chloride 112 mmol/L (98-107); Glucose 96 mg/dL (74-106); Potassium 3.8 mmol/L (3.5-5.1); Sodium 140 mmol/L (136-145)
[2019-10-01] MEDS ORDERED: ASPirin 81 mg TAB PO ONE (18:15)
[2019-10-01 18:18] LABS: Alanine Aminotransferase 14 U/L (13-56); Alkaline Phosphatase 77 U/L (45-117); Aspartate Aminotransferase 16 U/L (15-37); BUN/Creatinine Ratio 16.8; Bilirubin, Total 0.2 mg/dL (0.2-1.0); GFR African American 45 mL/min; GFR Non-African American 38 mL/min; Total Protein 6.6 g/dL (6.4-8.2)
[2019-10-01] MEDS ORDERED: MORPHINE SULF INJ 2 MG/ML SYRINGE 1ML IV PRN (19:45)
[2019-10-01] MEDS ORDERED: NITROGLYCERIN 0.4 MG SL TAB SL PRN (19:45)
--- NOTE | 2019-10-01 20:31 | NUR ---
received pt from er nurse poc reviewed
--- NOTE | 2019-10-01 21:00 | NUR ---
pt oriented to rm 248b, resp even and unlabored on rm, c/o general discomfort, 10/08, all questions and concerns addressed, call light within reach, bed alarm intact, tele sinus rhythm 76.
[2019-10-01] MEDS: FAMOTIDINE 20 MG TAB PO SCH (21:31)
[2019-10-01] MEDS: traZODone HCL 50 MG TAB PO SCH (21:31)
[2019-10-01] MEDS: SODIUM CHLORIDE 0.9% 1,000 ML IV SCH (21:38)
[2019-10-01 22:00] VITALS: BP 123/54
--- NOTE | 2019-10-01 22:11 | NUR ---
Med Rec Patient cannot recall all the medications she takes at home. Patient will have philosophy instructor bring in home medications sometime tomorrow.
--- NOTE | 2019-10-01 22:44 | NUR ---
resting comfortable at this time
--- NOTE | 2019-10-02 00:36 | NUR ---
resting with eyes closed, call light within reach, no c/o discomfort
--- NOTE | 2019-10-02 03:06 | NUR ---
awoke amb to bathroom with assist, no c/o chest pain
[2019-10-02 05:00] VITALS: BP 156/78
--- NOTE | 2019-10-02 06:27 | NUR ---
awoke amb to bathroom with assist, pt c/o sob after amb, o2 2l on pt at this time resp even and unlabored, sats 95%
[2019-10-02] MEDS: LEVOTHYROXINE SODIUM 25 MCG TAB PO SCH (06:33)
[2019-10-02] MEDS: SODIUM CHLORIDE 0.9% 1,000 ML IV SCH ×2 (06:33→18:13)
--- NOTE | 2019-10-02 06:52 | NUR ---
resting with eyes closed, resp even and unlabored, report given to am nurse poc reviewed
[2019-10-02 09:12] VITALS: BP 158/82
[2019-10-02] MEDS ORDERED: PATIENTS OWN MEDICATION (Levothyroxine Sodium 1 TAB) PO SCH (10:00)
[2019-10-02] MEDS ORDERED: PATIENTS OWN MEDICATION (Metoprolol Succinate (Metoprolol Succinate Er) 25 MG) PO SCH (10:00)
[2019-10-02] MEDS: METOPROLOL SUCCINATE XL 50 MG TAB PO SCH (10:22)
[2019-10-02 13:12] VITALS: BP 139/72
[2019-10-02 17:00] VITALS: BP 152/80
--- NOTE | 2019-10-02 19:56 | NUR ---
RECEIVED PT FROM DAY RN POC REVIEWED
[2019-10-02 21:00] VITALS: BP 157/80
--- NOTE | 2019-10-02 22:22 | NUR ---
c/o general arthritis pain 02/07 medicated as ordered,
[2019-10-02] MEDS: FAMOTIDINE 20 MG TAB PO SCH (22:25)
[2019-10-02] MEDS: traZODone HCL 50 MG TAB PO SCH (22:25)
--- NOTE | 2019-10-03 01:06 | NUR ---
resting with eyes closed, call light within reach bed alarm intact
[2019-10-03 04:30] VITALS: BP 155/76
[2019-10-03] MEDS: SODIUM CHLORIDE 0.9% 1,000 ML IV SCH ×3 (06:26→22:20)
[2019-10-03] MEDS: LEVOTHYROXINE SODIUM 25 MCG TAB PO SCH (06:27)
--- NOTE | 2019-10-03 06:46 | NUR ---
awoke amb to bathroom with assist, no c/o pain or discomfort, will report off to am nurse
--- NOTE | 2019-10-03 08:00 | NUR ---
Opening Shift Note Assumed care of patient, awake, alert, and oriented. No S/S of distress/SOB or pain. Bed in lowest locked position, bed rails up x2, call light within reach. Instructed on POC and to call for assist PRN. Will continue to monitor for changes Q1hr and PRN.
[2019-10-03 08:49] VITALS: BP 153/81
[2019-10-03] MEDS: METOPROLOL SUCCINATE XL 50 MG TAB PO SCH (09:49)
--- NOTE | 2019-10-03 11:44 | NUR ---
PAGED DR OCONNELL RE: PATIENT HOME MEDICATIONS. AWAITING RETURN CALL. WILL CONTINUE TO MONITOR
--- NOTE | 2019-10-03 12:45 | NUR ---
MD CALL RECEIVED RETURN CALL FROM DR OCONNELL RE: PATIENT HOME MEDICATIONS. NEW ORDERS RECEIVED/ WILL CARRY OUT.
--- NOTE | 2019-10-03 13:10 | NUR ---
PAIN PATIENT C/O 6/10 PAIN TO LOWER ABDOMEN. WILL MEDICATE PER MD ORDERS
[2019-10-03 13:12] VITALS: BP 150/74
[2019-10-03] MEDS: HYDROcodone-ACET 10/325MG TAB PO PRN ×2 (13:31→20:15)
--- NOTE | 2019-10-03 15:21 | NUR ---
IV insertion IV access obtained, via clean sterile technique by inserting 22 gauge catheter at RFA after 2 attempts. IV secured properly. No trauma to site. Patient tolerated well. IV removal IV DC'd with clean sterile technique, catheter fully intact. Pressure dressing applied to site. Patient tolerated well.
[2019-10-03 16:58] VITALS: BP 129/68
[2019-10-03 21:00] VITALS: BP 144/70
[2019-10-03] MEDS: traZODone HCL 50 MG TAB PO SCH (22:17)
[2019-10-03] MEDS: FAMOTIDINE 20 MG TAB PO SCH (22:18)
[2019-10-04 05:43] VITALS: BP 148/83
[2019-10-04] MEDS: LEVOTHYROXINE SODIUM 25 MCG TAB PO SCH (07:20)
--- NOTE | 2019-10-04 07:40 | NUR ---
PAIN PATIENT C/O 6/10 PAIN TO LOWER ABDOMEN. WILL MEDICATE PER MD ORDERS
--- NOTE | 2019-10-04 07:40 | NUR ---
Opening Shift Note Assumed care of patient, awake, alert, and oriented. No S/S of distress/SOB. Bed in lowest locked position, bed rails up x2, call light within reach. Instructed on POC and to call for assist PRN. Will continue to monitor for changes Q1hr and PRN.
[2019-10-04] MEDS: SODIUM CHLORIDE 0.9% 1,000 ML IV SCH ×2 (07:45→17:59)
[2019-10-04] MEDS: HYDROcodone-ACET 10/325MG TAB PO PRN ×2 (07:49→16:19)
[2019-10-04 09:00] VITALS: BP 151/97
[2019-10-04] MEDS: METOPROLOL SUCCINATE XL 50 MG TAB PO SCH (09:28)
--- NOTE | 2019-10-04 11:20 | NUR ---
AMBULATE PATIENT AMBULATING HALLS. NO S/S OF DISTRESS, SOB, OR PAIN. WILL CONTINUE TO MONITOR
[2019-10-04 13:00] VITALS: BP 139/79
--- NOTE | 2019-10-04 14:30 | NUR ---
AMBULATE PATIENT AMBULATING HALLS. NO S/S OF DISTRESS, SOB, OR PAIN. WILL CONTINUE TO MONITOR
--- NOTE | 2019-10-04 16:10 | NUR ---
PAIN PATIENT C/O 6/10 PAIN TO LOWER BACK. PATIENT STATING "HER ARTHRITIS IS HURTING HER SO BAD." WILL MEDICATE PER MD ORDERS
[2019-10-04 17:00] VITALS: BP 156/73
[2019-10-04 22:00] VITALS: BP 152/80
[2019-10-04] MEDS: FAMOTIDINE 20 MG TAB PO SCH (22:09)
[2019-10-04] MEDS: traZODone HCL 50 MG TAB PO SCH (22:09)
[2019-10-05 01:56] LABS: Urine WBC None Seen /hpf (0 - 5)
[2019-10-05 03:06] LABS: Urine Bacteria NONE SEEN /hpf (None Seen); Urine Blood 1+ /uL (Negative); Urine Specific Gravity 1.007 (1.001-1.035)
[2019-10-05] MEDS: SODIUM CHLORIDE 0.9% 1,000 ML IV SCH ×2 (03:45→13:41)
[2019-10-05 05:00] VITALS: BP 140/87
[2019-10-05 05:54] LABS: Basophils # (auto) 0 10 ^3/uL (0-0.2); Basophils % (auto) 0.2 % (0.0-2.0); Eosinophils # (auto) 0.5 10 ^3/uL (0-0.8); Eosinophils % (auto) 6.4 % (0.0-7.0); Hematocrit 36.2 % (36.0-46.0); Hemoglobin 12.3 g/dL (12.2-16.2); Mean Corpuscular Hemoglobin 32.6 pg (28.0-32.0); Mean Corpuscular Hgb Conc. 33.9 g/dL (32.0-36.0); Mean Corpuscular Volume 96.3 fL (80.0-100.0); Monocytes # (auto) 0.8 10 ^3/uL (0-1.3); Monocytes % (auto) 9.1 % (0.0-12.0); Neutrophils % (auto) 48.3 % (37.0-80.0); Nucleated Red Blood Cells % 0.2 %; Platelet Count (auto) 303 10^3/uL (140-450); Red Blood Cells 3.76 10^6/uL (4.0-5.20); Red Cell Distribution Width 14.7 % (11.8-14.3); White Blood Cell 8.4 10^3/uL (4.4-10.8)
[2019-10-05 06:16] LABS: INR 0.99 (0.9-1.15); Partial Thromboplastin Time 27.3 sec (23.64-32.05)
[2019-10-05 06:19] LABS: Chloride 113 mmol/L (98-107); Potassium 3.5 mmol/L (3.5-5.1); Sodium 143 mmol/L (136-145)
[2019-10-05 06:30] LABS: Alanine Aminotransferase 13 U/L (13-56); Alkaline Phosphatase 74 U/L (45-117); Anion Gap 6 (5-15); Aspartate Aminotransferase 18 U/L (15-37); BUN/Creatinine Ratio 21.1; Bilirubin, Total 0.4 mg/dL (0.2-1.0); Blood Urea Nitrogen 16 mg/dL (7-18); Carbon Dioxide 24 mmol/L (21-32); GFR African American 94 mL/min; GFR Non-African American 78 mL/min; Glucose 97 mg/dL (74-106); Total Protein 6.4 g/dL (6.4-8.2)
[2019-10-05] MEDS: HYDROcodone-ACET 10/325MG TAB PO PRN ×3 (07:01→18:40)
--- NOTE | 2019-10-05 07:30 | NUR ---
Opening Shift Note Received report. Assumed care of patient, awake and alert laying in bed in semi-fowlers position. Patient is on room air with even and unlabored respirations. No S/S of distress/SOB or pain at this time. Bed is in lowest position, wheels are locked, side rails up x2 and call light is with in reach. Pt is currently awaiting procedure, pt remains NPO and IV is patent and intact. Instructed on POC and to call for assist PRN, will continue to monitor for changes Q1hr and PRN.
[2019-10-05] MEDS: LEVOTHYROXINE SODIUM 25 MCG TAB PO SCH (07:51)
[2019-10-05] MEDS ORDERED: IOHEXOL 350 MG/ML 100ML IJ ONE (08:38)
[2019-10-05] MEDS ORDERED: LIDOCAINE 2%HCL (LOCAL ANESTH.) INJ 20ML MDV ONE (08:38)
--- NOTE | 2019-10-05 08:40 | NUR ---
PT OFF UNIT PT TRANSPORTED OFF UNIT TO WOOL FLEECE GRADER. PT IS ALERT AND AWAKE. PT IS ON RA WITH NO S/S OF SOB.DISTRESS OR PAIN. PT TRANSPORTED ON BED.
[2019-10-05 09:00] VITALS: BP 141/89
[2019-10-05] MEDS ORDERED: fentaNYL CITRATE 100 MCG/2 ML VL ONE (09:13)
[2019-10-05] MEDS ORDERED: ANGIOMAX 250 MG VIAL IV ONE (09:13)
[2019-10-05] MEDS ORDERED: SODIUM CHL 0.9% 50 ML ONE (09:14)
[2019-10-05] MEDS ORDERED: MIDAZOLAM HCL 1MG/1ML-2 ML VIAL ONE (09:14)
[2019-10-05] MEDS ORDERED: CLOPIDOGREL 300 MG TAB ONE (09:50)
[2019-10-05] MEDS ORDERED: ASPirin 81 mg TAB ONE (09:50)
[2019-10-05] MEDS: METOPROLOL SUCCINATE XL 50 MG TAB PO SCH (10:00)
--- NOTE | 2019-10-05 11:30 | NUR ---
PT BACK TO UNIT PT RETURNED TO UNIT FROM BUSINESS RULES ANALYST. PT IS ALERT AND AWAKE WITH EVEN AND UNLABORED RESPIRATIONS. VSS. INCISION TO RIGHT GROIN IS C/D/I. SITE IS SLIGHTLY TENDER TO TOUCH BUT SITE IS SOFT, NO EDEMA, OR BLEEDING NOTED. WILL CONTINUE TO MONITOR Q1H AND PRN.
--- NOTE | 2019-10-05 12:30 | NUR ---
PAIN PT C/O PAIN IN BILATERAL LEGS AND INCISION SITE. WILL GIVE PRN NORCO. WILL CONTINUE TO MONITOR Q1H AND PRN.
--- NOTE | 2019-10-05 15:33 | NUR ---
Nutrition Assessment Notes Please refer to link for full assessment notes. Est energy needs: 2363-8404 kcals (12-15 kcal/kgBW) Est protein needs: 67-74 gms/day (1.0-1.1 gm/kgAdjBW) Will continue to monitor and reassess prn. Addendum: 10/05/19 at [address] Amended: Links added.
--- NOTE | 2019-10-05 19:04 | NUR ---
RECEIVED REPORT FROM DAY RN POC REVIEWED
--- NOTE | 2019-10-05 21:18 | NUR ---
resting on side of bed resp even and unlabored denies pain or discomfort
[2019-10-05] MEDS: traZODone HCL 50 MG TAB PO SCH (21:55)
[2019-10-05] MEDS: FAMOTIDINE 20 MG TAB PO SCH (21:55)
[2019-10-05 22:00] VITALS: BP 131/71
--- NOTE | 2019-10-05 22:35 | NUR ---
pt transferred to 222a with all property
--- NOTE | 2019-10-06 04:26 | NUR ---
awoke amb to bathroom, no c/o discomfort or pain.
[2019-10-06 05:00] VITALS: BP 136/84
[2019-10-06] MEDS: HYDROcodone-ACET 10/325MG TAB PO PRN ×2 (05:46→13:19)
[2019-10-06] MEDS: LEVOTHYROXINE SODIUM 25 MCG TAB PO SCH (06:07)
--- NOTE | 2019-10-06 07:03 | NUR ---
report given to am nurse poc reviewed
--- NOTE | 2019-10-06 08:00 | NUR ---
Morning note Patient resting in bed with even and unlabored respirations, no distress noted. Instructed patient on POC, fall precautions and to call for assistance as needed. Patient verbalized understanding. Fall precautions in place with call light within reach. Dressing to the right groin is clean, dry and intact with no swelling or bleeding noted.
[2019-10-06 09:05] VITALS: BP 148/93
[2019-10-06] MEDS: SODIUM CHLORIDE 0.9% 1,000 ML IV SCH ×2 (09:45)
[2019-10-06] MEDS: METOPROLOL SUCCINATE XL 50 MG TAB PO SCH (09:49)
[2019-10-06] MEDS ORDERED: CLOPIDOGREL BISULFATE 75 MG TAB PO SCH (10:00)
[2019-10-06] MEDS ORDERED: ASPirin 81 mg TAB PO SCH (10:00)
--- NOTE | 2019-10-06 11:51 | NUR ---
RE: Discharge Discharge order received from Dr. Modi. Updated MD on patient's c/o "kidney pain" and CP. MD verbalized understanding.
[2019-10-06 13:00] VITALS: BP 157/74
--- NOTE | 2019-10-06 14:25 | NUR ---
Prescription called into patient's preferred pharmacy.
--- NOTE | 2019-10-06 15:03 | NUR ---
Discharge Discharge education and paperwork given to the patient per MD order. Patient instructed to call PCP and Dr. Modi to schedule a follow up appointment. Patient verbalized understanding. IV removed with clean technique, catheter intact. Dressing applied. patient tolerated well, no trauma to site. Telemonitor removed. Informed patient that discharge prescription has been called into her preferred pharmacy. Patient verbalized understanding. Respirations even and unlabored on room air, no distress noted. Patient has contacted her transportation. Patient reports having all personal belongings.
--- NOTE | 2019-10-06 16:03 | NUR ---
Transportation arrived to hospital Patient taken to hospital lobby via wheelchair, accompanied by staff member. Respirations even and unlabored respirations, no distress noted. Dressing to the right groin is clean, dry and intact with no bleeding or swelling noted.
== END 2019-10-06 16:03 | disposition home or self-care (01) | DRG 246 ==
LOC: EDBD 17:13 → EDUNIT# 17:13 → ER 17:13 → TELE-EAST 17:14 → TELE-CENTR 10-05 22:34
PROVIDERS: ADMIT Internal Medicine Cardiovascular Disease; ATTEND Internal Medicine Cardiovascular Disease
PROC: 4A023N7 Measurement of Cardiac Sampling and Pressure, Left Heart, Percutaneous Approach (ICD-10-PCS; principal; 2019-10-05)
PROC: 027034Z Dilation of Coronary Artery, One Artery with Drug-eluting Intraluminal Device, Percutaneous Approach (ICD-10-PCS; 2019-10-05)
PROC: B2111ZZ Fluoroscopy of Multiple Coronary Arteries using Low Osmolar Contrast (ICD-10-PCS; 2019-10-05)
PROC: 4A033BC Measurement of Arterial Pressure, Coronary, Percutaneous Approach (ICD-10-PCS; 2019-10-05)
PROC: B2151ZZ Fluoroscopy of Left Heart using Low Osmolar Contrast (ICD-10-PCS; 2019-10-05)
DX: I25.110 Atherosclerotic heart disease of native coronary artery with unstable angina pectoris (principal); I50.31 Acute diastolic (congestive) heart failure; I24.9 Acute ischemic heart disease, unspecified; I13.0 Hypertensive heart and chronic kidney disease with heart failure and stage 1 through stage 4 chronic kidney disease, or unspecified chronic kidney disease; D64.9 Anemia, unspecified; M19.90 Unspecified osteoarthritis, unspecified site; N18.3 Chronic kidney disease, stage 3 (moderate); I73.9 Peripheral vascular disease, unspecified; Z90.710 Acquired absence of both cervix and uterus; E03.9 Hypothyroidism, unspecified; F41.9 Anxiety disorder, unspecified; G89.4 Chronic pain syndrome; Z79.82 Long term (current) use of aspirin; Z79.899 Other long term (current) drug therapy; Z80.1 Family history of malignant neoplasm of trachea, bronchus and lung; Z80.6 Family history of leukemia; Z80.8 Family history of malignant neoplasm of other organs or systems; Z82.49 Family history of ischemic heart disease and other diseases of the circulatory system; Z87.440 Personal history of urinary (tract) infections; Z87.891 Personal history of nicotine dependence; I48.91 Unspecified atrial fibrillation
CPT/HCPCS: 36415; 71045; 80053; 81001; 84484; 85025; 85610; 85730; 86850; 86900; 86901; 92928; 93005; 93458; 93571; 99152; 99153; C1874; C1887; G0378; J2250

== ENCOUNTER → 2019-11-02 | Outpatient (CLI) | payer MEDICARE, MEDICAID | END | disposition home or self-care (01) | LOC: Rad HDHVI 15:45 | PROVIDERS: ATTEND Internal Medicine Cardiovascular Disease | DX: I25.10 Atherosclerotic heart disease of native coronary artery without angina pectoris (principal); I10 Essential (primary) hypertension; R42 Dizziness and giddiness | CPT/HCPCS: 93306 ==

== ENCOUNTER → 2020-02-10 | Outpatient (CLI) | payer MEDICARE, MEDICAID ==
[2020-02-10 15:44] LABS: Basophils # (auto) 0 10 ^3/uL (0-0.2); Basophils % (auto) 0.5 % (0.0-2.0); Eosinophils # (auto) 0.1 10 ^3/uL (0-0.8); Eosinophils % (auto) 1.2 % (0.0-7.0); Hematocrit 36.8 % (36.0-46.0); Hemoglobin 12.2 g/dL (12.2-16.2); Lymphocytes % (auto) 26.5 % (10.0-50.0); Mean Corpuscular Hemoglobin 31.3 pg (28.0-32.0); Mean Corpuscular Hgb Conc. 33.3 g/dL (32.0-36.0); Monocytes # (auto) 0.6 10 ^3/uL (0-1.3); Monocytes % (auto) 7.9 % (0.0-12.0); Neutrophils # (auto) 4.9 10 ^3/uL (1.6-8.6); Neutrophils % (auto) 63.9 % (37.0-80.0); Platelet Count (auto) 388 10^3/uL (140-450); Red Blood Cells 3.91 10^6/uL (4.0-5.20); Red Cell Distribution Width 14.6 % (11.8-14.3); White Blood Cell 7.7 10^3/uL (4.4-10.8)
[2020-02-10 16:21] LABS: Potassium 3.7 mmol/L (3.5-5.1)
[2020-02-10 16:28] LABS: Albumin 3.7 g/dL (3.4-5.0); BUN/Creatinine Ratio 13.8; Bilirubin, Total 0.3 mg/dL (0.2-1.0); Phosphorus 3.3 mg/dL (2.5-4.90)
== END | disposition home or self-care (01) ==
LOC: LAB 15:27
PROVIDERS: ATTEND Physician Assistant
DX: I12.9 Hypertensive chronic kidney disease with stage 1 through stage 4 chronic kidney disease, or unspecified chronic kidney disease (principal); N18.3 Chronic kidney disease, stage 3 (moderate); K21.9 Gastro-esophageal reflux disease without esophagitis; J44.9 Chronic obstructive pulmonary disease, unspecified; M10.9 Gout, unspecified; R94.6 Abnormal results of thyroid function studies; D63.1 Anemia in chronic kidney disease
CPT/HCPCS: 36415; 80053; 80061; 80069; 82306; 84443; 84550; 85025

== ENCOUNTER → 2020-10-12 | Outpatient (CLI) | payer MEDICARE, MEDICAID ==
[~2020-10-12] MED LIST changes: -CLIN150C7 PO; +CLIN150C8 PO; +READI-CAT 2 (BARIUM SULF)(VANILLA SMOOTHIE) 450ML ONE
== END | disposition home or self-care (01) ==
LOC: Rad HDHVI 15:18
PROVIDERS: ATTEND Internal Medicine Cardiovascular Disease
DX: N26.1 Atrophy of kidney (terminal) (principal); I70.0 Atherosclerosis of aorta; K40.90 Unilateral inguinal hernia, without obstruction or gangrene, not specified as recurrent; J98.11 Atelectasis; J43.9 Emphysema, unspecified; M47.819 Spondylosis without myelopathy or radiculopathy, site unspecified; M41.86 Other forms of scoliosis, lumbar region; R10.9 Unspecified abdominal pain
CPT/HCPCS: 74176

== ENCOUNTER → 2020-10-19 | Outpatient (CLI) | payer MEDICARE, MEDICAID ==
[~2020-10-19] MED LIST changes: -READI-CAT 2 (BARIUM SULF)(VANILLA SMOOTHIE) 450ML ONE
[2020-10-19 13:44] LABS: Urine WBC None Seen /hpf (0 - 5)
[2020-10-19 13:49] LABS: Basophils # (auto) 0 10 ^3/uL (0-0.2); Basophils % (auto) 0.5 % (0.0-2.0); Eosinophils # (auto) 0.5 10 ^3/uL (0-0.8); Hematocrit 35.7 % (36.0-46.0); Lymphocytes # (auto) 3.1 10 ^3/uL (0.4-5.4); Lymphocytes % (auto) 32.7 % (10.0-50.0); Mean Corpuscular Hemoglobin 31.4 pg (28.0-32.0); Mean Corpuscular Hgb Conc. 33.8 g/dL (32.0-36.0); Mean Corpuscular Volume 93.1 fL (80.0-100.0); Monocytes # (auto) 0.8 10 ^3/uL (0-1.3); Monocytes % (auto) 8.8 % (0.0-12.0); Platelet Count (auto) 387 10^3/uL (140-450); Red Blood Cells 3.83 10^6/uL (4.0-5.20); Red Cell Distribution Width 16.3 % (11.8-14.3); White Blood Cell 9.4 10^3/uL (4.4-10.8)
[2020-10-19 13:51] LABS: Urine Bacteria NONE SEEN /hpf (None Seen); Urine Blood 1+ /uL (Negative); Urine Hyaline Cast FEW /lpf (0 - 2)
[2020-10-19 14:14] LABS: Albumin 3.9 g/dL (3.4-5.0); BUN/Creatinine Ratio 17.6; Calcium 9.2 mg/dL (8.5-10.1); Phosphorus 3.3 mg/dL (2.5-4.90); Potassium 3.9 mmol/L (3.5-5.1); Uric Acid 7.3 mg/dL (2.6-6.0)
[2020-10-19 14:15] LABS: Protein, Urine 8.5 mg/dL (0.0-11.9)
== END | disposition home or self-care (01) ==
LOC: LAB 13:20
PROVIDERS: ATTEND Internal Medicine
DX: N18.31 Chronic kidney disease, stage 3a (principal); D63.1 Anemia in chronic kidney disease; E21.3 Hyperparathyroidism, unspecified; E78.5 Hyperlipidemia, unspecified; M10.9 Gout, unspecified; R80.9 Proteinuria, unspecified; R82.90 Unspecified abnormal findings in urine; E56.9 Vitamin deficiency, unspecified
CPT/HCPCS: 36415; 80069; 81001; 82306; 82570; 83970; 84156; 84550; 85025

== ENCOUNTER → 2020-10-24 | Outpatient (CLI) | payer MEDICARE, MEDICAID ==
[~2020-10-24] MED LIST changes: +ISOS1TAB28 PO; -ISOS30TA4 PO; -LISI-646 PO; +LISI20TA28 PO; -LORA-352 PO; +LORA10TA6 PO
== END | disposition home or self-care (01) ==
LOC: Rad HDHVI 15:59
PROVIDERS: ATTEND Internal Medicine Cardiovascular Disease
DX: I10 Essential (primary) hypertension (principal); R06.02 Shortness of breath
CPT/HCPCS: 93306

== ENCOUNTER → 2020-11-02 | Outpatient (CLI) | payer MEDICARE, MEDICAID ==
[~2020-11-02] MED LIST changes: +ADENOSINE 90 MG/30 ML INJ IV ONE
== END | disposition home or self-care (01) ==
LOC: Rad HDHVI 15:54
PROVIDERS: ATTEND Internal Medicine Cardiovascular Disease
DX: I10 Essential (primary) hypertension (principal); R60.9 Edema, unspecified
CPT/HCPCS: 93925

== ENCOUNTER 2020-11-17 18:12 | Emergency (ER) | payer MEDICARE, MEDICAID ==
[~2020-11-17] VITALS: Ht 160 cm; Wt 47.6 kg
[~2020-11-17 18:12] MED LIST changes: -ADENOSINE 90 MG/30 ML INJ IV ONE
[2020-11-17 21:14] LABS: Basophils # (auto) 0 10 ^3/uL (0-0.2); Basophils % (auto) 0.5 % (0.0-2.0); Eosinophils # (auto) 0.4 10 ^3/uL (0-0.8); Eosinophils % (auto) 4.6 % (0.0-7.0); Hemoglobin 13.6 g/dL (12.2-16.2); Lymphocytes # (auto) 2.9 10 ^3/uL (0.4-5.4); Lymphocytes % (auto) 33.3 % (10.0-50.0); Mean Corpuscular Hemoglobin 33.3 pg (28.0-32.0); Mean Corpuscular Hgb Conc. 35.7 g/dL (32.0-36.0); Mean Corpuscular Volume 93.4 fL (80.0-100.0); Monocytes # (auto) 0.8 10 ^3/uL (0-1.3); Monocytes % (auto) 8.8 % (0.0-12.0); Neutrophils # (auto) 4.7 10 ^3/uL (1.6-8.6); Neutrophils % (auto) 52.8 % (37.0-80.0); Platelet Count (auto) 361 10^3/uL (140-450); Red Blood Cells 4.07 10^6/uL (4.0-5.20); Red Cell Distribution Width 15.3 % (11.8-14.3); White Blood Cell 8.8 10^3/uL (4.4-10.8)
[2020-11-17 21:26] LABS: Albumin 3.6 g/dL (3.4-5.0); Magnesium 2.4 mg/dL (1.6-2.6); Potassium 3.8 mmol/L (3.5-5.1)
[2020-11-17] MEDS ORDERED: LABETALOL HCL 5 MG/ML 4ML SYRINGE IV ONE (21:30)
[2020-11-17 21:37] LABS: BUN/Creatinine Ratio 9.2; Bilirubin, Total 0.3 mg/dL (0.2-1.0); Total Protein 7.1 g/dL (6.4-8.2)
[2020-11-18] MEDS ORDERED: LISINOPRIL 20 MG TAB PO ONE (02:30)
[2020-11-18 03:53] LABS: Urine Bacteria NONE SEEN /hpf (None Seen); Urine Blood Negative /uL (Negative); Urine Specific Gravity 1.003 (1.001-1.035); Urine WBC 2 /hpf (0 - 5)
[2020-11-18] MEDS ORDERED: hydrALAZINE HCL 20 MG/ML VL IV ONE (04:00)
[2020-11-18 04:20] VITALS: BP 148/82
== END 2020-11-18 05:09 | disposition home or self-care (01) ==
LOC: EDBD 18:12 → ER 18:12
DX: B34.9 Viral infection, unspecified (principal); R11.0 Nausea; R53.1 Weakness; I11.0 Hypertensive heart disease with heart failure; I50.9 Heart failure, unspecified; I48.91 Unspecified atrial fibrillation; E78.5 Hyperlipidemia, unspecified; Z90.49 Acquired absence of other specified parts of digestive tract; Z90.710 Acquired absence of both cervix and uterus; Z87.891 Personal history of nicotine dependence; Z79.82 Long term (current) use of aspirin; Z79.899 Other long term (current) drug therapy; Z20.822 Contact with and (suspected) exposure to COVID-19
CPT/HCPCS: 36415; 71045; 80053; 81001; 83605; 83735; 85025; 87040; 87426; 93005; 96374; 96375; 99285; J0360; J3490

== ENCOUNTER → 2021-01-25 | Outpatient (CLI) | payer MEDICARE, MEDICAID ==
[2021-01-25 15:55] LABS: Basophils # (auto) 0 10 ^3/uL (0-0.2); Basophils % (auto) 0.5 % (0.0-2.0); Eosinophils # (auto) 0.2 10 ^3/uL (0-0.8); Eosinophils % (auto) 3.3 % (0.0-7.0); Lymphocytes % (auto) 27.6 % (10.0-50.0); Mean Corpuscular Hemoglobin 32.1 pg (28.0-32.0); Mean Corpuscular Hgb Conc. 34.3 g/dL (32.0-36.0); Mean Corpuscular Volume 93.8 fL (80.0-100.0); Monocytes # (auto) 0.8 10 ^3/uL (0-1.3); Monocytes % (auto) 10.4 % (0.0-12.0); Neutrophils # (auto) 4.2 10 ^3/uL (1.6-8.6); Neutrophils % (auto) 58.2 % (37.0-80.0); Red Blood Cells 4.05 10^6/uL (4.0-5.20); Red Cell Distribution Width 14.2 % (11.8-14.3); White Blood Cell 7.2 10^3/uL (4.4-10.8)
[2021-01-25 17:20] LABS: Urine Bacteria FEW /hpf (None Seen); Urine Blood 1+ /uL (Negative); Urine Specific Gravity 1.006 (1.001-1.035); Urine WBC <1 /hpf (0 - 5)
[2021-01-25 17:27] LABS: Albumin 3.5 g/dL (3.4-5.0); BUN/Creatinine Ratio 14.7; Calcium 8.9 mg/dL (8.5-10.1); Phosphorus 3.6 mg/dL (2.5-4.90); Potassium 4.3 mmol/L (3.5-5.1); Uric Acid 6.6 mg/dL (2.6-6.0)
[2021-01-25 17:39] LABS: Creatinine, Urine 27 mg/dL (30.0-125.0); Protein, Urine < 5.0 mg/dL (0.0-11.9)
== END | disposition home or self-care (01) ==
LOC: LAB 15:22
PROVIDERS: ATTEND Internal Medicine
DX: N18.31 Chronic kidney disease, stage 3a (principal); D63.1 Anemia in chronic kidney disease; N39.0 Urinary tract infection, site not specified; M10.9 Gout, unspecified; R80.9 Proteinuria, unspecified; E56.9 Vitamin deficiency, unspecified; E21.3 Hyperparathyroidism, unspecified; E78.5 Hyperlipidemia, unspecified
CPT/HCPCS: 36415; 80069; 81001; 82306; 82570; 83970; 84156; 84550; 85025; 87086

== ENCOUNTER → 2021-03-22 | Outpatient (CLI) | payer MEDICARE, MEDICAID ==
[2021-03-22 15:22] LABS: Urine Blood Negative /uL (Negative); Urine Specific Gravity 1.004 (1.001-1.035)
== END | disposition home or self-care (01) ==
LOC: CHF HDHVI 11:08
PROVIDERS: ATTEND Internal Medicine Cardiovascular Disease
DX: N39.0 Urinary tract infection, site not specified (principal)
CPT/HCPCS: 81003

== ENCOUNTER → 2021-08-08 | Outpatient (CLI) | payer MEDICARE, MEDICAID ==
[~2021-08-08] MED LIST changes: -AMIT50TA3 PO; +AMIT50TA5 PO
[2021-08-08 09:42] LABS: Basophils # (auto) 0.1 10 ^3/uL (0-0.2); Basophils % (auto) 0.8 % (0.0-2.0); Eosinophils # (auto) 0.4 10 ^3/uL (0-0.8); Eosinophils % (auto) 5.7 % (0.0-7.0); Hematocrit 35.7 % (36.0-46.0); Hemoglobin 12.3 g/dL (12.2-16.2); Lymphocytes # (auto) 2.2 10 ^3/uL (0.4-5.4); Lymphocytes % (auto) 30.7 % (10.0-50.0); Mean Corpuscular Hemoglobin 31.7 pg (28.0-32.0); Mean Corpuscular Hgb Conc. 34.4 g/dL (32.0-36.0); Mean Corpuscular Volume 92.3 fL (80.0-100.0); Monocytes # (auto) 0.7 10 ^3/uL (0-1.3); Monocytes % (auto) 9.4 % (0.0-12.0); Neutrophils # (auto) 3.8 10 ^3/uL (1.6-8.6); Neutrophils % (auto) 53.4 % (37.0-80.0); Red Blood Cells 3.87 10^6/uL (4.0-5.20); Red Cell Distribution Width 14.4 % (11.8-14.3)
[2021-08-08 11:27] LABS: Potassium 4.3 mmol/L (3.5-5.1)
[2021-08-08 11:35] LABS: Albumin 3.4 g/dL (3.4-5.0); BUN/Creatinine Ratio 12.8; Bilirubin, Total 0.4 mg/dL (0.2-1.0); Total Protein 6.6 g/dL (6.4-8.2)
== END | disposition home or self-care (01) ==
LOC: LAB 09:19
PROVIDERS: ATTEND Nurse Practitioner Family
DX: I50.30 Unspecified diastolic (congestive) heart failure (principal); J44.9 Chronic obstructive pulmonary disease, unspecified; N18.30 Chronic kidney disease, stage 3 unspecified; R94.6 Abnormal results of thyroid function studies; E78.5 Hyperlipidemia, unspecified
CPT/HCPCS: 36415; 80053; 80061; 84443; 85025

== ENCOUNTER 2021-10-23 13:52 | Emergency (ER) | payer MEDICARE, MEDICAID ==
[~2021-10-23] VITALS: Ht 165.1 cm; Wt 69.9 kg
[2021-10-23] MEDS ORDERED: SODIUM CHLORIDE 0.9% 1,000 ML IV ONE ×2 (14:30)
[2021-10-23] MEDS ORDERED: KETOROLAC TROMETH 30 MG/ML 1ML VIAL IV ONE (14:45)
[2021-10-23 15:30] LABS: Urine Bacteria NONE SEEN /hpf (None Seen); Urine Blood 1+ /uL (Negative); Urine Hyaline Cast FEW /lpf (0 - 2); Urine Specific Gravity 1.012 (1.001-1.035); Urine WBC 2 /hpf (0 - 5)
[2021-10-23] MEDS ORDERED: cefTRIAXone 1GM/50ML D5W 50 ML IV ONE (16:45)
[2021-10-23 17:02] LABS: Eosinophils # (auto) 0.5 10 ^3/uL (0-0.8); Eosinophils % (auto) 5.2 % (0.0-7.0); Hematocrit 34.6 % (36.0-46.0); Hemoglobin 11.7 g/dL (12.2-16.2)
[2021-10-23 17:04] LABS: Basophils # (auto) 0.1 10 ^3/uL (0-0.2); Basophils % (auto) 0.6 % (0.0-2.0); Lymphocytes # (auto) 2.7 10 ^3/uL (0.4-5.4); Lymphocytes % (auto) 28.7 % (10.0-50.0); Mean Corpuscular Hemoglobin 30.8 pg (28.0-32.0); Mean Corpuscular Hgb Conc. 33.7 g/dL (32.0-36.0); Mean Corpuscular Volume 91.5 fL (80.0-100.0); Monocytes % (auto) 10.3 % (0.0-12.0); Neutrophils # (auto) 5.1 10 ^3/uL (1.6-8.6); Neutrophils % (auto) 55.2 % (37.0-80.0); Red Blood Cells 3.79 10^6/uL (4.0-5.20); Red Cell Distribution Width 15.5 % (11.8-14.3); White Blood Cell 9.2 10^3/uL (4.4-10.8)
[2021-10-23] MEDS ORDERED: CEPH-509 PO (17:07)
[2021-10-23] MEDS ORDERED: METR500T PO (17:07)
[2021-10-23 17:19] LABS: Albumin 3.4 g/dL (3.4-5.0); BUN/Creatinine Ratio 18.9; Calcium 9.4 mg/dL (8.5-10.1); Potassium 3.8 mmol/L (3.5-5.1)
[2021-10-23 17:27] LABS: Bilirubin, Total 0.3 mg/dL (0.2-1.0); Total Protein 6.7 g/dL (6.4-8.2)
[2021-10-23 18:33] VITALS: BP 149/63
== END 2021-10-23 20:01 | disposition home or self-care (01) ==
LOC: EDBD 13:52 → ER 13:52
DX: N20.0 Calculus of kidney (principal); K52.9 Noninfective gastroenteritis and colitis, unspecified; I11.0 Hypertensive heart disease with heart failure; I50.9 Heart failure, unspecified; I48.91 Unspecified atrial fibrillation; E78.5 Hyperlipidemia, unspecified; E03.9 Hypothyroidism, unspecified; Z90.49 Acquired absence of other specified parts of digestive tract; Z90.710 Acquired absence of both cervix and uterus; Z87.891 Personal history of nicotine dependence; Z79.82 Long term (current) use of aspirin; Z79.899 Other long term (current) drug therapy
CPT/HCPCS: 36415; 71045; 74176; 80053; 81001; 84484; 85025; 93005; 96360; 99285; J7030

== ENCOUNTER 2021-11-11 16:01 | Inpatient (IN) | payer MEDICARE, MEDICAID ==
[~2021-11-11] VITALS: Ht 160 cm; Wt 55.8 kg
[~2021-11-11 16:01] MED LIST changes: +CEPH-509 PO; +METR500T PO
[2021-11-11] MEDS ORDERED: ONDANSETRON HCL 4 MG/2 ML VIAL IV ONE (16:15)
[2021-11-11] MEDS ORDERED: SODIUM CHLORIDE 0.9% 1,000 ML IV ONE (16:15)
[2021-11-11 17:22] LABS: Basophils # (auto) 0.1 10 ^3/uL (0-0.2); Basophils % (auto) 0.5 % (0.0-2.0); Eosinophils # (auto) 0 10 ^3/uL (0-0.8); Eosinophils % (auto) 0.3 % (0.0-7.0); Hemoglobin 13.5 g/dL (12.2-16.2); Lymphocytes % (auto) 17.5 % (10.0-50.0); Mean Corpuscular Hemoglobin 31.9 pg (28.0-32.0); Mean Corpuscular Hgb Conc. 34.6 g/dL (32.0-36.0); Mean Corpuscular Volume 92.1 fL (80.0-100.0); Monocytes # (auto) 1.5 10 ^3/uL (0-1.3); Monocytes % (auto) 13.6 % (0.0-12.0); Neutrophils # (auto) 7.7 10 ^3/uL (1.6-8.6); Neutrophils % (auto) 68.1 % (37.0-80.0); Nucleated Red Blood Cells % 0.1 %; Red Blood Cells 4.23 10^6/uL (4.0-5.20); Red Cell Distribution Width 15.5 % (11.8-14.3); White Blood Cell 11.3 10^3/uL (4.4-10.8)
[2021-11-11 17:38] LABS: INR 1.03 (0.9-1.15); Partial Thromboplastin Time 25.1 sec (23.6-33.0)
[2021-11-11 17:52] LABS: Albumin 3.2 g/dL (3.4-5.0); BUN/Creatinine Ratio 19.3; Calcium 9.4 mg/dL (8.5-10.1); Potassium 3.9 mmol/L (3.5-5.1)
[2021-11-11 17:55] LABS: Bilirubin, Total 0.6 mg/dL (0.2-1.0); Total Protein 6.8 g/dL (6.4-8.2)
[2021-11-11 18:44] LABS: Urine Bacteria FEW /hpf (None Seen); Urine Blood 1+ /uL (Negative); Urine Hyaline Cast MOD /lpf (0 - 2); Urine Mucus FEW (None Seen); Urine Specific Gravity 1.007 (1.001-1.035); Urine WBC 3 /hpf (0 - 5)
[2021-11-11] MEDS ORDERED: PIPERACILLIN-TAZOB 3.375GM 100 ML IV ONE (20:45)
[2021-11-11] MEDS ORDERED: HYDROmorphone HCL 2 MG/ML VL/or syr IV ONE (20:45)
[2021-11-11] MEDS ORDERED: ACETAMINOPHEN 650 mg PER 20.3 mL UD NG PRN (21:45)
[2021-11-11] MEDS: FAMOTIDINE (10MG/ML) 2ML VL IV SCH (22:00)
[2021-11-11] MEDS ORDERED: LORazepam 2MG/ML-1ML VIAL IV ONE (22:00)
[2021-11-11] MEDS ORDERED: LIDOCAINE HCL 2% TOP JELLY 5ML TOP ONE (22:00)
[2021-11-11] MEDS: D5W/SOD CHLO 0.9% 1,000 ML IV SCH (22:15)
[2021-11-11] MEDS ORDERED: NITROGLYCERIN 0.4 MG SL TAB SL PRN (23:30)
[2021-11-11] MEDS ORDERED: MORPHINE SULFATE INJ 2 MG/ml SYRG IV PRN (23:30)
[2021-11-12 05:00] VITALS: BP 155/74
[2021-11-12] MEDS: PIPERACILLIN-TAZOB 3.375GM 100 ML IV SCH ×3 (06:29→21:19)
[2021-11-12 07:41] LABS: Basophils # (auto) 0 10 ^3/uL (0-0.2); Basophils % (auto) 0.3 % (0.0-2.0); Eosinophils # (auto) 0.1 10 ^3/uL (0-0.8); Eosinophils % (auto) 1.5 % (0.0-7.0); Hematocrit 39.5 % (36.0-46.0); Hemoglobin 13.7 g/dL (12.2-16.2); Lymphocytes # (auto) 1.3 10 ^3/uL (0.4-5.4); Lymphocytes % (auto) 13.1 % (10.0-50.0); Mean Corpuscular Hemoglobin 31.9 pg (28.0-32.0); Mean Corpuscular Hgb Conc. 34.6 g/dL (32.0-36.0); Mean Corpuscular Volume 92.2 fL (80.0-100.0); Monocytes # (auto) 1.5 10 ^3/uL (0-1.3); Monocytes % (auto) 15.3 % (0.0-12.0); Neutrophils # (auto) 6.8 10 ^3/uL (1.6-8.6); Neutrophils % (auto) 69.8 % (37.0-80.0); Red Blood Cells 4.29 10^6/uL (4.0-5.20); White Blood Cell 9.8 10^3/uL (4.4-10.8)
[2021-11-12 07:52] LABS: Potassium 3.3 mmol/L (3.5-5.1)
[2021-11-12 08:00] VITALS: BP 148/73
[2021-11-12 08:01] LABS: BUN/Creatinine Ratio 23.3; Bilirubin, Total 0.6 mg/dL (0.2-1.0); Calcium 8.9 mg/dL (8.5-10.1); Total Protein 6.4 g/dL (6.4-8.2)
[2021-11-12 08:48] VITALS: BP 148/73
[2021-11-12] MEDS: FAMOTIDINE (10MG/ML) 2ML VL IV SCH ×2 (10:29→21:19)
[2021-11-12] MEDS: D5W/SOD CHLO 0.9% 1,000 ML IV SCH (11:35)
[2021-11-12 12:02] VITALS: BP 161/88
[2021-11-12] MEDS ORDERED: POTASSIUM CHLORIDE 40 MEQ, LIDOCAINE 1% (LOCAL ANESTH.) 4 ML in SODIUM CHL 0.9% 250 ML IV ONE (12:30)
[2021-11-12] MEDS: LABETALOL HCL 5 MG/ML 4ML SYRINGE IV PRN ×3 (13:17→17:09)
[2021-11-12] MEDS: MORPHINE SULFATE INJ 2 MG/ml SYRG IV PRN ×2 (17:11→23:31)
[2021-11-12 17:12] VITALS: BP 187/92
[2021-11-12 22:00] VITALS: BP 153/79
[2021-11-13] MEDS: D5W/SOD CHLO 0.9% 1,000 ML IV SCH ×2 (00:55→15:02)
[2021-11-13 04:58] VITALS: BP_SYST 121; BP_SYST 146; BP_DIAS 52; BP_DIAS 79
[2021-11-13 05:35] LABS: Basophils # (auto) 0 10 ^3/uL (0-0.2); Basophils % (auto) 0.5 % (0.0-2.0); Eosinophils # (auto) 0.1 10 ^3/uL (0-0.8); Eosinophils % (auto) 2.3 % (0.0-7.0); Hematocrit 38.4 % (36.0-46.0); Lymphocytes # (auto) 1.5 10 ^3/uL (0.4-5.4); Lymphocytes % (auto) 24.4 % (10.0-50.0); Mean Corpuscular Hemoglobin 31.4 pg (28.0-32.0); Mean Corpuscular Hgb Conc. 33.8 g/dL (32.0-36.0); Mean Corpuscular Volume 92.8 fL (80.0-100.0); Monocytes # (auto) 1.1 10 ^3/uL (0-1.3); Neutrophils # (auto) 3.3 10 ^3/uL (1.6-8.6); Neutrophils % (auto) 54.8 % (37.0-80.0); Nucleated Red Blood Cells % 0.1 %; Red Blood Cells 4.14 10^6/uL (4.0-5.20); Red Cell Distribution Width 15.7 % (11.8-14.3)
[2021-11-13 05:48] LABS: Albumin 2.8 g/dL (3.4-5.0); Calcium 8.5 mg/dL (8.5-10.1); Potassium 3.2 mmol/L (3.5-5.1)
[2021-11-13 05:54] LABS: BUN/Creatinine Ratio 24.3; Bilirubin, Total 0.5 mg/dL (0.2-1.0)
[2021-11-13] MEDS: PIPERACILLIN-TAZOB 3.375GM 100 ML IV SCH ×3 (06:09→22:30)
[2021-11-13 08:00] VITALS: BP 148/81
[2021-11-13 09:00] VITALS: BP 148/81
[2021-11-13] MEDS: FAMOTIDINE (10MG/ML) 2ML VL IV SCH ×2 (09:01→22:29)
[2021-11-13] MEDS: MORPHINE SULFATE INJ 2 MG/ml SYRG IV PRN ×2 (09:02→19:20)
[2021-11-13] MEDS ORDERED: GASTROGRAFIN 120 ML SOL ONE (09:28)
[2021-11-13] MEDS ORDERED: LORazepam 2MG/ML-1ML VIAL IV ONE (10:15)
[2021-11-13 13:00] VITALS: BP 140/79
[2021-11-13 17:30] VITALS: BP 178/90
[2021-11-13] MEDS: LABETALOL HCL 5 MG/ML 4ML SYRINGE IV PRN (20:47)
[2021-11-13 22:00] VITALS: BP 156/86
[2021-11-13] MEDS ORDERED: hydrALAZINE HCL 20 MG/ML VL IV ONE (23:00)
[2021-11-14] VITALS (8 sets, daily range): BP systolic 145–169; BP diastolic 76–86
[2021-11-14] MEDS: LABETALOL HCL 5 MG/ML 4ML SYRINGE IV PRN ×3 (02:33→18:57)
[2021-11-14] MEDS: MORPHINE SULFATE INJ 2 MG/ml SYRG IV PRN ×3 (02:34→22:05)
[2021-11-14] MEDS: D5W/SOD CHLO 0.9% 1,000 ML IV SCH ×2 (03:35→18:27)
[2021-11-14 06:12] LABS: Basophils # (auto) 0 10 ^3/uL (0-0.2); Basophils % (auto) 0.5 % (0.0-2.0); Eosinophils # (auto) 0 10 ^3/uL (0-0.8); Eosinophils % (auto) 0.6 % (0.0-7.0); Hematocrit 40.4 % (36.0-46.0); Hemoglobin 13.9 g/dL (12.2-16.2); Lymphocytes # (auto) 1.7 10 ^3/uL (0.4-5.4); Lymphocytes % (auto) 25.1 % (10.0-50.0); Mean Corpuscular Hemoglobin 31.9 pg (28.0-32.0); Mean Corpuscular Hgb Conc. 34.4 g/dL (32.0-36.0); Monocytes # (auto) 1.2 10 ^3/uL (0-1.3); Monocytes % (auto) 17.7 % (0.0-12.0); Neutrophils # (auto) 3.8 10 ^3/uL (1.6-8.6); Neutrophils % (auto) 56.1 % (37.0-80.0); Nucleated Red Blood Cells % 0.1 %; Red Blood Cells 4.35 10^6/uL (4.0-5.20); Red Cell Distribution Width 15.9 % (11.8-14.3); White Blood Cell 6.7 10^3/uL (4.4-10.8)
[2021-11-14] MEDS: PIPERACILLIN-TAZOB 3.375GM 100 ML IV SCH ×3 (06:13→22:05)
[2021-11-14 06:28] LABS: Potassium 3.7 mmol/L (3.5-5.1)
[2021-11-14 06:35] LABS: Albumin 3.1 g/dL (3.4-5.0); BUN/Creatinine Ratio 20.8; Bilirubin, Total 0.5 mg/dL (0.2-1.0); Calcium 9.5 mg/dL (8.5-10.1); Total Protein 6.7 g/dL (6.4-8.2)
[2021-11-14] MEDS: FAMOTIDINE (10MG/ML) 2ML VL IV SCH ×2 (08:40→22:04)
[2021-11-15] MEDS: MORPHINE SULFATE INJ 2 MG/ml SYRG IV PRN ×3 (03:22→13:38)
[2021-11-15 05:00] VITALS: BP 167/84
[2021-11-15] MEDS: PIPERACILLIN-TAZOB 3.375GM 100 ML IV SCH ×3 (05:10→22:00)
[2021-11-15] MEDS: LABETALOL HCL 5 MG/ML 4ML SYRINGE IV PRN ×2 (05:11→09:18)
[2021-11-15 05:44] LABS: Basophils # (auto) 0 10 ^3/uL (0-0.2); Basophils % (auto) 0.4 % (0.0-2.0); Eosinophils # (auto) 0.1 10 ^3/uL (0-0.8); Eosinophils % (auto) 1.5 % (0.0-7.0); Hemoglobin 13.8 g/dL (12.2-16.2); Lymphocytes # (auto) 1.6 10 ^3/uL (0.4-5.4); Lymphocytes % (auto) 20.1 % (10.0-50.0); Mean Corpuscular Hemoglobin 32.1 pg (28.0-32.0); Mean Corpuscular Hgb Conc. 34.4 g/dL (32.0-36.0); Mean Corpuscular Volume 93.3 fL (80.0-100.0); Monocytes # (auto) 1.2 10 ^3/uL (0-1.3); Neutrophils # (auto) 5.1 10 ^3/uL (1.6-8.6); Nucleated Red Blood Cells % 0.1 %; Red Blood Cells 4.29 10^6/uL (4.0-5.20); Red Cell Distribution Width 15.6 % (11.8-14.3); White Blood Cell 8.1 10^3/uL (4.4-10.8)
[2021-11-15 06:02] LABS: Albumin 2.9 g/dL (3.4-5.0); Calcium 8.9 mg/dL (8.5-10.1)
[2021-11-15 06:07] LABS: BUN/Creatinine Ratio 20.9; Bilirubin, Total 0.5 mg/dL (0.2-1.0); Total Protein 6.5 g/dL (6.4-8.2)
[2021-11-15] MEDS: D5W/SOD CHLO 0.9% 1,000 ML IV SCH ×2 (06:15→19:35)
[2021-11-15 09:00] VITALS: BP 155/87
[2021-11-15] MEDS: FAMOTIDINE (10MG/ML) 2ML VL IV SCH ×2 (09:17→22:07)
[2021-11-15] MEDS: POTASSIUM CHL 20MEQ/100ML 100 ML IV SCH ×3 (10:13→14:45)
[2021-11-15] MEDS: ONDANSETRON HCL 4 MG/2 ML VIAL IV PRN (12:43)
[2021-11-15 13:00] VITALS: BP 146/77
[2021-11-15] MEDS ORDERED: HYDROmorphone HCL 2 MG/ML VL/or syr ONE ×2 (14:30→18:55)
[2021-11-15] MEDS ORDERED: MIDAZOLAM HCL 2MG/2ML 2ml VIAL (1mg/ml) ONE (14:30)
[2021-11-15] MEDS ORDERED: fentaNYL CITRATE 100 MCG/2 ML VL ONE (14:30)
[2021-11-15 14:33] LABS: Magnesium 2.3 mg/dL (1.6-2.6); Phosphorus 2.3 mg/dL (2.5-4.90)
[2021-11-15] MEDS ORDERED: SODIUM PHOSPHATES 20 MEQ in SODIUM CHL 0.9% 100 ML IV ONE (16:45)
[2021-11-15 17:00] VITALS: BP 148/64
[2021-11-15] MEDS ORDERED: DexAMETHasone SOD PHOS 10MG/1ML VIAL INJ IV ONE (17:23)
[2021-11-15] MEDS ORDERED: NEOSTIGMINE 1 MG/ML INJ (10mg/10ML VIAL) IV ONE (17:23)
[2021-11-15] MEDS ORDERED: METOCLOPRAMIDE HCL 5MG/ml INJ 2ml VIAL IV ONE (17:23)
[2021-11-15] MEDS ORDERED: ROCURONIUM 10MG/ML 10ML VIAL IV ONE (17:23)
[2021-11-15] MEDS ORDERED: GLYCOPYRROLATE 0.2 MG/ML 1ML VIAL IV ONE (17:23)
[2021-11-15] MEDS ORDERED: PROPOFOL 10 MG/ML 20 ML IV ONE (17:23)
[2021-11-15] MEDS ORDERED: ONDANSETRON HCL 4 MG/2 ML VIAL IV ONE (17:23)
[2021-11-15 18:29] LABS: INR 1.08 (0.9-1.15); Partial Thromboplastin Time 28.6 sec (23.6-33.0)
[2021-11-15] MEDS: HYDROmorphone HCL 2 MG/ML VL/or syr IV PRN ×4 (18:55→19:25)
[2021-11-15] MEDS ORDERED: METOCLOPRAMIDE HCL 5MG/ml INJ 2ml VIAL IV PRN (19:00)
[2021-11-15] MEDS ORDERED: LABETALOL HCL 5 MG/ML 4ML SYRINGE IV PRN (19:00)
[2021-11-15] MEDS ORDERED: ONDANSETRON HCL 4 MG/2 ML VIAL IV PRN (19:00)
[2021-11-15] MEDS ORDERED: LORazepam 2MG/ML-1ML VIAL IV ONE (19:15)
[2021-11-15] MEDS: LORazepam 2MG/ML-1ML VIAL ONE (19:17)
[2021-11-15] MEDS: hydrALAZINE HCL 20 MG/ML VL IV PRN ×2 (19:27→19:37)
[2021-11-15] MEDS ORDERED: LORazepam 2MG/ML-1ML VIAL IV PRN (19:45)
[2021-11-15] MEDS ORDERED: AMINO ACID INFUSION IN D10W 1,000 ML IV NR (20:00)
[2021-11-15 21:51] VITALS: BP 126/65
[2021-11-15] MEDS ORDERED: TPN PER PHARMACY 0 ML IV SCH (22:00)
[2021-11-15] MEDS: METOCLOPRAMIDE HCL 5MG/ml INJ 2ml VIAL IV SCH (22:07)
[2021-11-16] MEDS ORDERED: DEXTROSE (50%) 50ML SYRG IV SCH
[2021-11-16] MEDS: MORPHINE SULFATE INJ 2 MG/ml SYRG IV PRN ×4 (00:25→14:13)
[2021-11-16] MEDS: ACCU-CHEK COMFORT CURVE STRIP VI SCH ×4 (00:47→17:53)
[2021-11-16 04:41] VITALS: BP 130/68
[2021-11-16] MEDS: PIPERACILLIN-TAZOB 3.375GM 100 ML IV SCH (05:03)
[2021-11-16] MEDS: METOCLOPRAMIDE HCL 5MG/ml INJ 2ml VIAL IV SCH ×3 (05:03→22:23)
[2021-11-16] MEDS: InsuLIN REG 1unit/0.01ml Soln (100units/ml) SC SCH ×4 (05:08→17:58)
[2021-11-16 06:32] LABS: Albumin 2.8 g/dL (3.4-5.0); Calcium 8.6 mg/dL (8.5-10.1); Potassium 3.9 mmol/L (3.5-5.1)
[2021-11-16 06:37] LABS: BUN/Creatinine Ratio 18.8; Bilirubin, Total 0.5 mg/dL (0.2-1.0); Phosphorus 4.2 mg/dL (2.5-4.90); Total Protein 6.2 g/dL (6.4-8.2)
[2021-11-16 06:48] LABS: Basophils # (auto) 0 10 ^3/uL (0-0.2); Basophils % (auto) 0.2 % (0.0-2.0); Eosinophils # (auto) 0 10 ^3/uL (0-0.8); Hematocrit 46.1 % (36.0-46.0); Hemoglobin 15.6 g/dL (12.2-16.2); Lymphocytes # (auto) 1.6 10 ^3/uL (0.4-5.4); Lymphocytes % (auto) 11.9 % (10.0-50.0); Mean Corpuscular Hemoglobin 31.7 pg (28.0-32.0); Mean Corpuscular Hgb Conc. 33.8 g/dL (32.0-36.0); Mean Corpuscular Volume 93.7 fL (80.0-100.0); Monocytes # (auto) 1.9 10 ^3/uL (0-1.3); Monocytes % (auto) 14.5 % (0.0-12.0); Neutrophils # (auto) 9.8 10 ^3/uL (1.6-8.6); Neutrophils % (auto) 73.4 % (37.0-80.0); Red Blood Cells 4.92 10^6/uL (4.0-5.20); Red Cell Distribution Width 15.7 % (11.8-14.3); White Blood Cell 13.4 10^3/uL (4.4-10.8)
[2021-11-16] MEDS: D5W/SOD CHLO 0.9% 1,000 ML IV SCH ×2 (08:55→22:43)
[2021-11-16 09:00] VITALS: BP 149/74
[2021-11-16] MEDS: FAMOTIDINE (10MG/ML) 2ML VL IV SCH (09:56)
[2021-11-16] MEDS ORDERED: PIPERACILLIN-TAZOB 2.25GM 50 ML IV SCH (12:00)
[2021-11-16 13:36] VITALS: BP 156/78
[2021-11-16] MEDS: LABETALOL HCL 5 MG/ML 4ML SYRINGE IV PRN ×2 (13:40→17:18)
[2021-11-16] MEDS ORDERED: LIDOCAINE 1% (LOCAL ANESTH.) PF 5ml SDV ID ONE (16:30)
[2021-11-16 16:57] VITALS: BP 173/77
[2021-11-16] MEDS ORDERED: CIPROFLOXACIN 400MG/200ML 200 ML IV ONE (18:00)
[2021-11-16] MEDS: LORazepam 2MG/ML-1ML VIAL ONE (18:03)
[2021-11-16] MEDS: HYDROmorphone HCL 2 MG/ML VL/or syr IV PRN (19:44)
[2021-11-16] MEDS: PPN PER PHARMACY IV NR ×8 (20:13)
[2021-11-16 21:41] VITALS: BP 144/69
[2021-11-16] MEDS: SODIUM CHLOR 0.9% PF (SALINE LOCK) 10ML VIAL/SYR IV SCH (22:13)
[2021-11-16] MEDS: metroNIDAZOLE 500MG/100ML 100 ML IV SCH (22:23)
[2021-11-17] MEDS: ACCU-CHEK COMFORT CURVE STRIP VI SCH ×5 (00:24→23:59)
[2021-11-17] MEDS: HYDROmorphone HCL 2 MG/ML VL/or syr IV PRN ×5 (00:46→19:59)
[2021-11-17 05:00] VITALS: BP 137/59
[2021-11-17] MEDS: ONDANSETRON HCL 4 MG/2 ML VIAL IV PRN (05:13)
[2021-11-17] MEDS: InsuLIN REG 1unit/0.01ml Soln (100units/ml) SC SCH ×5 (05:51→23:59)
[2021-11-17] MEDS: metroNIDAZOLE 500MG/100ML 100 ML IV SCH ×3 (06:04→22:08)
[2021-11-17] MEDS: METOCLOPRAMIDE HCL 5MG/ml INJ 2ml VIAL IV SCH ×3 (06:05→22:08)
[2021-11-17 06:51] LABS: Albumin 2.5 g/dL (3.4-5.0); Potassium 3.4 mmol/L (3.5-5.1)
[2021-11-17 06:56] LABS: BUN/Creatinine Ratio 22.6; Bilirubin, Total 0.2 mg/dL (0.2-1.0); Magnesium 1.9 mg/dL (1.6-2.6); Phosphorus 1.6 mg/dL (2.5-4.90); Total Protein 5.7 g/dL (6.4-8.2)
[2021-11-17 08:00] VITALS: BP 137/59
[2021-11-17 08:30] VITALS: BP 127/66
[2021-11-17] MEDS ORDERED: POTASSIUM PHOSPHATE 26.4 MEQ in SODIUM CHL 0.9% 100 ML IV ONE (10:00)
[2021-11-17] MEDS ORDERED: CIPROFLOXACIN 400MG/200ML 200 ML IV SCH (10:00)
[2021-11-17] MEDS: SODIUM CHLOR 0.9% PF (SALINE LOCK) 10ML VIAL/SYR IV SCH ×2 (10:38→22:08)
[2021-11-17] MEDS: FAMOTIDINE (10MG/ML) 2ML VL IV SCH (10:38)
[2021-11-17] MEDS: D5W/SOD CHLO 0.9% 1,000 ML IV SCH (11:53)
[2021-11-17 12:46] VITALS: BP 162/81
[2021-11-17] MEDS: LORazepam 2MG/ML-1ML VIAL IV PRN (16:15)
[2021-11-17 16:32] VITALS: BP 153/71
[2021-11-17] MEDS ORDERED: TPN PER PHARMACY IV NR ×8 (20:00)
[2021-11-17] MEDS: PPN PER PHARMACY IV NR ×8 (20:20)
[2021-11-17 22:00] VITALS: BP_SYST 153; BP_SYST 159; BP_DIAS 66; BP_DIAS 73
[2021-11-17] MEDS: CIPROFLOXACIN 400MG/200ML 200 ML IV SCH (22:08)
[2021-11-18] MEDS: HYDROmorphone HCL 2 MG/ML VL/or syr IV PRN ×3 (02:43→12:57)
[2021-11-18] MEDS: D5W/SOD CHLO 0.9% 1,000 ML IV SCH ×3 (02:44→21:36)
[2021-11-18 05:00] VITALS: BP 160/81
[2021-11-18] MEDS: InsuLIN REG 1unit/0.01ml Soln (100units/ml) SC SCH ×3 (06:00→18:00)
[2021-11-18] MEDS: metroNIDAZOLE 500MG/100ML 100 ML IV SCH ×3 (06:25→21:33)
[2021-11-18] MEDS: METOCLOPRAMIDE HCL 5MG/ml INJ 2ml VIAL IV SCH ×3 (06:25→21:33)
[2021-11-18] MEDS: ACCU-CHEK COMFORT CURVE STRIP VI SCH ×3 (06:26→18:02)
[2021-11-18 07:18] LABS: Albumin 2.2 g/dL (3.4-5.0); BUN/Creatinine Ratio 25.3; Calcium 7.7 mg/dL (8.5-10.1); Magnesium 2.2 mg/dL (1.6-2.6); Phosphorus 1.7 mg/dL (2.5-4.90); Potassium 3.4 mmol/L (3.5-5.1)
[2021-11-18 08:00] VITALS: BP 165/75
[2021-11-18] MEDS: LABETALOL HCL 5 MG/ML 4ML SYRINGE IV PRN ×3 (08:34→21:34)
[2021-11-18 09:00] VITALS: BP 177/81
[2021-11-18] MEDS: FAMOTIDINE (10MG/ML) 2ML VL IV SCH (09:03)
[2021-11-18] MEDS: CIPROFLOXACIN 400MG/200ML 200 ML IV SCH ×2 (09:03→21:33)
[2021-11-18] MEDS: LORazepam 2MG/ML-1ML VIAL IV PRN (10:49)
[2021-11-18] MEDS ORDERED: POTASSIUM PHOSPHATE 44 MEQ in D5W 5% 250 ML IV ONE (12:00)
[2021-11-18] MEDS: SODIUM CHLOR 0.9% PF (SALINE LOCK) 10ML VIAL/SYR IV SCH ×2 (12:40→21:32)
[2021-11-18 13:00] VITALS: BP 186/78
[2021-11-18 17:16] VITALS: BP 161/71
[2021-11-18] MEDS ORDERED: TPN PER PHARMACY IV NR ×9 (20:00)
[2021-11-18 22:00] VITALS: BP 169/74
[2021-11-19] MEDS: HYDROmorphone HCL 2 MG/ML VL/or syr IV PRN ×5 (00:10→20:43)
[2021-11-19] MEDS: ACCU-CHEK COMFORT CURVE STRIP VI SCH ×4 (00:26→17:30)
[2021-11-19] MEDS: LABETALOL HCL 5 MG/ML 4ML SYRINGE IV PRN ×4 (00:41→20:53)
[2021-11-19 05:00] VITALS: BP 160/74
[2021-11-19] MEDS: metroNIDAZOLE 500MG/100ML 100 ML IV SCH ×3 (05:59→21:47)
[2021-11-19] MEDS: InsuLIN REG 1unit/0.01ml Soln (100units/ml) SC SCH ×4 (06:00→17:29)
[2021-11-19] MEDS: METOCLOPRAMIDE HCL 5MG/ml INJ 2ml VIAL IV SCH ×3 (06:00→21:43)
[2021-11-19 06:21] LABS: BUN/Creatinine Ratio 22.7; Bilirubin, Total 0.3 mg/dL (0.2-1.0); Calcium 7.6 mg/dL (8.5-10.1); Magnesium 2.1 mg/dL (1.6-2.6); Phosphorus 1.7 mg/dL (2.5-4.90); Total Protein 5.1 g/dL (6.4-8.2)
[2021-11-19 07:41] LABS: Potassium 2.9 mmol/L (3.5-5.1)
[2021-11-19 08:00] VITALS: BP 160/74
[2021-11-19] MEDS ORDERED: POTASSIUM PHOSPHATE 44 MEQ in D5W 5% 250 ML IV ONE (08:30)
[2021-11-19] MEDS: CIPROFLOXACIN 400MG/200ML 200 ML IV SCH ×2 (09:18→21:50)
[2021-11-19] MEDS: FAMOTIDINE (10MG/ML) 2ML VL IV SCH (09:18)
[2021-11-19] MEDS: SODIUM CHLOR 0.9% PF (SALINE LOCK) 10ML VIAL/SYR IV SCH ×2 (09:20→21:57)
[2021-11-19 09:25] VITALS: BP 135/68
[2021-11-19] MEDS ORDERED: D5W/SOD CHLO 0.9% 1,000 ML IV SCH (11:00)
[2021-11-19] MEDS: ONDANSETRON HCL 4 MG/2 ML VIAL IV PRN (11:12)
[2021-11-19] MEDS: LORazepam 2MG/ML-1ML VIAL IV PRN (11:52)
[2021-11-19 13:11] VITALS: BP 166/73
[2021-11-19] MEDS: D5W/SOD CHLO 0.9% 1,000 ML IV SCH ×2 (14:28→21:01)
[2021-11-19 17:33] VITALS: BP 110/68
[2021-11-19] MEDS ORDERED: TPN PER PHARMACY IV NR ×9 (20:00)
[2021-11-19 21:40] VITALS: BP 178/81
[2021-11-20 00:45] VITALS: BP 140/68
[2021-11-20] MEDS: HYDROmorphone HCL 2 MG/ML VL/or syr IV PRN ×5 (02:42→20:05)
[2021-11-20 05:00] VITALS: BP 137/69
[2021-11-20] MEDS: metroNIDAZOLE 500MG/100ML 100 ML IV SCH ×3 (05:56→21:31)
[2021-11-20] MEDS: METOCLOPRAMIDE HCL 5MG/ml INJ 2ml VIAL IV SCH ×3 (05:56→21:30)
[2021-11-20] MEDS: ACCU-CHEK COMFORT CURVE STRIP VI SCH ×4 (06:00→17:04)
[2021-11-20] MEDS: InsuLIN REG 1unit/0.01ml Soln (100units/ml) SC SCH ×4 (06:00→17:04)
[2021-11-20 06:18] LABS: Albumin 1.9 g/dL (3.4-5.0); Calcium 7.5 mg/dL (8.5-10.1); Magnesium 2.2 mg/dL (1.6-2.6); Potassium 3.2 mmol/L (3.5-5.1)
[2021-11-20 06:23] LABS: BUN/Creatinine Ratio 25.7; Bilirubin, Total 0.3 mg/dL (0.2-1.0); Phosphorus 2.2 mg/dL (2.5-4.90); Total Protein 4.9 g/dL (6.4-8.2)
[2021-11-20] MEDS ORDERED: GASTROGRAFIN 120 ML SOL ONE (08:25)
[2021-11-20] MEDS ORDERED: POTASSIUM PHOSPHATE 44 MEQ in D5W 5% 250 ML IV ONE (10:30)
[2021-11-20 10:40] LABS: Basophils # (auto) 0.1 10 ^3/uL (0-0.2); Basophils % (auto) 0.5 % (0.0-2.0); Eosinophils # (auto) 0.9 10 ^3/uL (0-0.8); Eosinophils % (auto) 6.8 % (0.0-7.0); Hematocrit 35.4 % (36.0-46.0); Lymphocytes # (auto) 1.8 10 ^3/uL (0.4-5.4); Lymphocytes % (auto) 13.6 % (10.0-50.0); Mean Corpuscular Hgb Conc. 33.5 g/dL (32.0-36.0); Mean Corpuscular Volume 92.6 fL (80.0-100.0); Monocytes # (auto) 2.3 10 ^3/uL (0-1.3); Neutrophils # (auto) 8.2 10 ^3/uL (1.6-8.6); Neutrophils % (auto) 62.1 % (37.0-80.0); Nucleated Red Blood Cells % 0.1 %; Red Blood Cells 3.82 10^6/uL (4.0-5.20); Red Cell Distribution Width 15.3 % (11.8-14.3); White Blood Cell 13.3 10^3/uL (4.4-10.8)
[2021-11-20 10:50] VITALS: BP 174/85
[2021-11-20 10:57] LABS: Hemoglobin 11.9 g/dL (12.2-16.2)
[2021-11-20] MEDS: FAMOTIDINE (10MG/ML) 2ML VL IV SCH (11:10)
[2021-11-20] MEDS: LABETALOL HCL 5 MG/ML 4ML SYRINGE IV PRN ×3 (11:11→20:04)
[2021-11-20] MEDS: CIPROFLOXACIN 400MG/200ML 200 ML IV SCH ×2 (11:11→21:31)
[2021-11-20] MEDS: SODIUM CHLOR 0.9% PF (SALINE LOCK) 10ML VIAL/SYR IV SCH ×2 (11:12→21:30)
[2021-11-20 12:00] VITALS: BP 145/73
[2021-11-20 16:00] VITALS: BP 167/84
[2021-11-20] MEDS: D5W/SOD CHLO 0.9% 1,000 ML IV SCH (20:00)
[2021-11-20] MEDS ORDERED: TPN PER PHARMACY IV NR ×9 (20:00)
[2021-11-20 23:39] VITALS: BP 141/73
[2021-11-21] MEDS: LABETALOL HCL 5 MG/ML 4ML SYRINGE IV PRN ×5 (01:35→23:40)
[2021-11-21] MEDS: HYDROmorphone HCL 2 MG/ML VL/or syr IV PRN ×5 (01:37→21:25)
[2021-11-21 05:24] VITALS: BP 141/68
[2021-11-21] MEDS: InsuLIN REG 1unit/0.01ml Soln (100units/ml) SC SCH ×4 (06:00→17:02)
[2021-11-21] MEDS: ACCU-CHEK COMFORT CURVE STRIP VI SCH ×4 (06:00→17:02)
[2021-11-21] MEDS: metroNIDAZOLE 500MG/100ML 100 ML IV SCH ×3 (06:23→21:32)
[2021-11-21] MEDS: METOCLOPRAMIDE HCL 5MG/ml INJ 2ml VIAL IV SCH ×3 (06:23→21:31)
[2021-11-21 08:48] VITALS: BP 136/65
[2021-11-21 09:33] LABS: Albumin 2.1 g/dL (3.4-5.0); Calcium 7.7 mg/dL (8.5-10.1); Magnesium 2.2 mg/dL (1.6-2.6); Potassium 3.8 mmol/L (3.5-5.1)
[2021-11-21 09:38] LABS: BUN/Creatinine Ratio 26.4; Bilirubin, Total 0.3 mg/dL (0.2-1.0); Phosphorus 2.9 mg/dL (2.5-4.90); Total Protein 5.4 g/dL (6.4-8.2)
[2021-11-21] MEDS: CIPROFLOXACIN 400MG/200ML 200 ML IV SCH (10:04)
[2021-11-21] MEDS: FAMOTIDINE (10MG/ML) 2ML VL IV SCH (10:04)
[2021-11-21] MEDS: SODIUM CHLOR 0.9% PF (SALINE LOCK) 10ML VIAL/SYR IV SCH ×2 (10:05→21:51)
[2021-11-21 13:00] VITALS: BP 166/86
[2021-11-21 17:00] VITALS: BP 164/75
[2021-11-21] MEDS: FLUCONAZOLE 200MG/100ML 100 ML IV SCH (17:19)
[2021-11-21] MEDS: NEOSTIGMINE 1 MG/ML INJ (10mg/10ML VIAL) IM SCH ×2 (17:20→21:51)
[2021-11-21] MEDS: D5W/SOD CHLO 0.9% 1,000 ML IV SCH (20:00)
[2021-11-21] MEDS ORDERED: TPN PER PHARMACY IV NR ×9 (20:00)
[2021-11-21] MEDS: PIPERACILLIN-TAZOB 3.375GM 100 ML IV SCH (21:32)
[2021-11-21 21:41] VITALS: BP 150/70
[2021-11-21] MEDS: LORazepam 2MG/ML-1ML VIAL IV PRN (23:40)
[2021-11-22] MEDS: NEOSTIGMINE 1 MG/ML INJ (10mg/10ML VIAL) IM SCH ×2 (02:46→06:49)
[2021-11-22 05:29] VITALS: BP 158/87
[2021-11-22] MEDS: PIPERACILLIN-TAZOB 3.375GM 100 ML IV SCH ×3 (06:19→21:30)
[2021-11-22] MEDS: metroNIDAZOLE 500MG/100ML 100 ML IV SCH ×3 (06:19→21:30)
[2021-11-22] MEDS: METOCLOPRAMIDE HCL 5MG/ml INJ 2ml VIAL IV SCH ×3 (06:19→21:30)
[2021-11-22] MEDS: ACCU-CHEK COMFORT CURVE STRIP VI SCH ×3 (06:21→17:42)
[2021-11-22] MEDS: InsuLIN REG 1unit/0.01ml Soln (100units/ml) SC SCH ×3 (06:21→17:42)
[2021-11-22] MEDS: LABETALOL HCL 5 MG/ML 4ML SYRINGE IV PRN ×2 (06:25→19:19)
[2021-11-22 06:49] LABS: Calcium 7.5 mg/dL (8.5-10.1)
[2021-11-22 06:55] LABS: Albumin 1.8 g/dL (3.4-5.0); BUN/Creatinine Ratio 26.5; Bilirubin, Total 0.3 mg/dL (0.2-1.0); Magnesium 2.4 mg/dL (1.6-2.6); Phosphorus 2.3 mg/dL (2.5-4.90); Total Protein 4.8 g/dL (6.4-8.2)
[2021-11-22 07:44] LABS: Potassium 2.9 mmol/L (3.5-5.1)
[2021-11-22 08:00] VITALS: BP 174/77
[2021-11-22] MEDS: POTASSIUM CHL 20MEQ/100ML 100 ML IV SCH ×2 (08:18→10:00)
[2021-11-22] MEDS: HYDROmorphone HCL 2 MG/ML VL/or syr IV PRN ×3 (08:19→21:21)
[2021-11-22 09:00] VITALS: BP 174/77
[2021-11-22] MEDS: FAMOTIDINE (10MG/ML) 2ML VL IV SCH (09:14)
[2021-11-22] MEDS: SODIUM CHLOR 0.9% PF (SALINE LOCK) 10ML VIAL/SYR IV SCH ×2 (11:58→21:30)
[2021-11-22] MEDS ORDERED: POTASSIUM PHOSPHATE 22 MEQ in SODIUM CHL 0.9% 100 ML IV ONE (12:00)
[2021-11-22 13:00] VITALS: BP 140/81
[2021-11-22 17:00] VITALS: BP 169/82
[2021-11-22] MEDS: FLUCONAZOLE 200MG/100ML 100 ML IV SCH (17:39)
[2021-11-22] MEDS ORDERED: TPN PER PHARMACY IV NR ×9 (20:00)
[2021-11-22] MEDS: D5W/SOD CHLO 0.9% 1,000 ML IV SCH (20:00)
[2021-11-22 21:35] VITALS: BP 148/79
[2021-11-23] MEDS: LORazepam 2MG/ML-1ML VIAL IV PRN ×2 (00:23→22:01)
[2021-11-23 05:00] VITALS: BP 161/71
[2021-11-23 05:37] LABS: Potassium 3.3 mmol/L (3.5-5.1)
[2021-11-23 05:47] LABS: BUN/Creatinine Ratio 30.6; Bilirubin, Total 0.3 mg/dL (0.2-1.0); Calcium 7.6 mg/dL (8.5-10.1); Phosphorus 2.9 mg/dL (2.5-4.90)
[2021-11-23] MEDS: InsuLIN REG 1unit/0.01ml Soln (100units/ml) SC SCH ×4 (06:00→18:00)
[2021-11-23] MEDS: PIPERACILLIN-TAZOB 3.375GM 100 ML IV SCH ×3 (06:10→22:05)
[2021-11-23] MEDS: LABETALOL HCL 5 MG/ML 4ML SYRINGE IV PRN ×4 (06:10→13:15)
[2021-11-23] MEDS: metroNIDAZOLE 500MG/100ML 100 ML IV SCH ×2 (06:10→14:00)
[2021-11-23] MEDS: ACCU-CHEK COMFORT CURVE STRIP VI SCH ×4 (06:11→18:12)
[2021-11-23] MEDS: METOCLOPRAMIDE HCL 5MG/ml INJ 2ml VIAL IV SCH ×3 (06:12→22:03)
[2021-11-23 09:00] VITALS: BP_SYST 161; BP_SYST 179; BP_DIAS 71; BP_DIAS 84
[2021-11-23] MEDS ORDERED: POTASSIUM CHL 20MEQ/100ML 100 ML IV ONE (10:00)
[2021-11-23] MEDS: HYDROmorphone HCL 2 MG/ML VL/or syr IV PRN ×2 (10:30→15:39)
[2021-11-23] MEDS: SODIUM CHLOR 0.9% PF (SALINE LOCK) 10ML VIAL/SYR IV SCH ×2 (10:37→22:01)
[2021-11-23] MEDS: FAMOTIDINE (10MG/ML) 2ML VL IV SCH (10:37)
[2021-11-23 12:00] VITALS: BP 163/79
[2021-11-23] MEDS ORDERED: POTASSIUM PHOSPHATE 22 MEQ in SODIUM CHL 0.9% 100 ML IV ONE (12:30)
[2021-11-23] MEDS: cloNIDine HCL 0.1 MG TAB PO SCH ×2 (15:09→22:05)
[2021-11-23 17:06] VITALS: BP 99/68
[2021-11-23] MEDS: FLUCONAZOLE 200MG/100ML 100 ML IV SCH (18:20)
[2021-11-23] MEDS ORDERED: TPN PER PHARMACY IV NR ×9 (20:00)
[2021-11-23 22:00] VITALS: BP 134/84
[2021-11-24] MEDS: ACCU-CHEK COMFORT CURVE STRIP VI SCH ×5 (00:44→23:53)
[2021-11-24] MEDS: HYDROmorphone HCL 2 MG/ML VL/or syr IV PRN ×3 (01:00→21:19)
[2021-11-24 04:58] VITALS: BP 132/75
[2021-11-24] MEDS: METOCLOPRAMIDE HCL 5MG/ml INJ 2ml VIAL IV SCH ×3 (05:53→21:18)
[2021-11-24] MEDS: PIPERACILLIN-TAZOB 3.375GM 100 ML IV SCH ×3 (05:54→21:17)
[2021-11-24] MEDS: InsuLIN REG 1unit/0.01ml Soln (100units/ml) SC SCH ×5 (05:54→23:53)
[2021-11-24 05:59] LABS: Basophils # (auto) 0 10 ^3/uL (0-0.2); Basophils % (auto) 0.4 % (0.0-2.0); Eosinophils # (auto) 0.4 10 ^3/uL (0-0.8); Eosinophils % (auto) 4.3 % (0.0-7.0); Hematocrit 29.9 % (36.0-46.0); Hemoglobin 10.4 g/dL (12.2-16.2); Lymphocytes # (auto) 2.2 10 ^3/uL (0.4-5.4); Lymphocytes % (auto) 22.1 % (10.0-50.0); Mean Corpuscular Hemoglobin 31.9 pg (28.0-32.0); Mean Corpuscular Hgb Conc. 34.7 g/dL (32.0-36.0); Monocytes # (auto) 1.2 10 ^3/uL (0-1.3); Neutrophils # (auto) 6.2 10 ^3/uL (1.6-8.6); Neutrophils % (auto) 61.2 % (37.0-80.0); Red Blood Cells 3.26 10^6/uL (4.0-5.20); Red Cell Distribution Width 15.5 % (11.8-14.3); White Blood Cell 10.1 10^3/uL (4.4-10.8)
[2021-11-24 06:20] LABS: BUN/Creatinine Ratio 28.4; Bilirubin, Total 0.3 mg/dL (0.2-1.0); Magnesium 2.3 mg/dL (1.6-2.6); Phosphorus 2.9 mg/dL (2.5-4.90)
[2021-11-24 09:00] VITALS: BP 141/87
[2021-11-24] MEDS: SODIUM CHLOR 0.9% PF (SALINE LOCK) 10ML VIAL/SYR IV SCH ×2 (10:35→22:29)
[2021-11-24] MEDS: FAMOTIDINE (10MG/ML) 2ML VL IV SCH (11:06)
[2021-11-24] MEDS: cloNIDine HCL 0.1 MG TAB PO SCH ×2 (11:06→21:18)
[2021-11-24] MEDS: ONDANSETRON HCL 4 MG/2 ML VIAL IV PRN (12:15)
[2021-11-24 12:50] VITALS: BP 138/60
[2021-11-24 16:50] VITALS: BP 138/78
[2021-11-24] MEDS: FLUCONAZOLE 200MG/100ML 100 ML IV SCH (18:14)
[2021-11-24 19:42] LABS: Urine Bacteria NONE SEEN /hpf (None Seen); Urine Blood 1+ /uL (Negative); Urine Specific Gravity 1.007 (1.001-1.035); Urine WBC 2 /hpf (0 - 5)
[2021-11-24 22:00] VITALS: BP 146/74
[2021-11-24] MEDS ORDERED: FAMOTIDINE 20 MG TAB PO SCH (22:00)
[2021-11-25] MEDS: LORazepam 2MG/ML-1ML VIAL IV PRN ×2 (01:04→11:26)
[2021-11-25 05:00] VITALS: BP 171/84
[2021-11-25] MEDS: HYDROmorphone HCL 2 MG/ML VL/or syr IV PRN ×3 (05:00→22:30)
[2021-11-25] MEDS: InsuLIN REG 1unit/0.01ml Soln (100units/ml) SC SCH ×3 (05:52→18:00)
[2021-11-25] MEDS: ACCU-CHEK COMFORT CURVE STRIP VI SCH ×3 (05:52→18:20)
[2021-11-25] MEDS: METOCLOPRAMIDE HCL 5MG/ml INJ 2ml VIAL IV SCH ×3 (05:54→22:29)
[2021-11-25] MEDS: PIPERACILLIN-TAZOB 3.375GM 100 ML IV SCH ×3 (05:55→22:33)
[2021-11-25] MEDS: LABETALOL HCL 5 MG/ML 4ML SYRINGE IV PRN (08:03)
[2021-11-25 09:21] VITALS: BP 152/75
[2021-11-25] MEDS: FAMOTIDINE (10MG/ML) 2ML VL IV SCH (09:44)
[2021-11-25] MEDS: SODIUM CHLOR 0.9% PF (SALINE LOCK) 10ML VIAL/SYR IV SCH ×2 (11:25→22:00)
[2021-11-25 12:58] VITALS: BP 163/79
[2021-11-25] MEDS: cloNIDine HCL 0.1 MG TAB PO SCH ×2 (12:58→23:27)
[2021-11-25 17:06] VITALS: BP 118/56
[2021-11-25] MEDS: FLUCONAZOLE 200MG/100ML 100 ML IV SCH (18:23)
[2021-11-25 22:00] VITALS: BP 147/69
[2021-11-26] MEDS: ACCU-CHEK COMFORT CURVE STRIP VI SCH ×5 (00:31→23:50)
[2021-11-26] MEDS: InsuLIN REG 1unit/0.01ml Soln (100units/ml) SC SCH ×5 (00:31→23:50)
[2021-11-26] MEDS: LORazepam 2MG/ML-1ML VIAL IV PRN ×3 (01:10→22:57)
[2021-11-26 05:00] VITALS: BP 156/88
[2021-11-26] MEDS: PIPERACILLIN-TAZOB 3.375GM 100 ML IV SCH ×3 (05:18→20:59)
[2021-11-26] MEDS: METOCLOPRAMIDE HCL 5MG/ml INJ 2ml VIAL IV SCH ×3 (05:18→20:59)
[2021-11-26 06:27] VITALS: BP 138/67
[2021-11-26] MEDS: FAMOTIDINE (10MG/ML) 2ML VL IV SCH (08:46)
[2021-11-26] MEDS: cloNIDine HCL 0.1 MG TAB PO SCH ×2 (08:47→21:00)
[2021-11-26] MEDS: LABETALOL HCL 5 MG/ML 4ML SYRINGE IV PRN ×4 (08:49→15:27)
[2021-11-26 09:00] VITALS: BP 159/74
[2021-11-26] MEDS: HYDROmorphone HCL 2 MG/ML VL/or syr IV PRN ×4 (10:27→21:01)
[2021-11-26] MEDS: SODIUM CHLOR 0.9% PF (SALINE LOCK) 10ML VIAL/SYR IV SCH ×2 (10:32→21:00)
[2021-11-26 13:00] VITALS: BP 124/56
[2021-11-26 16:54] VITALS: BP 129/56
[2021-11-26] MEDS: FLUCONAZOLE 200MG/100ML 100 ML IV SCH (18:25)
[2021-11-26 22:00] VITALS: BP 162/76
[2021-11-27 04:00] VITALS: BP 165/86
[2021-11-27] MEDS: LABETALOL HCL 5 MG/ML 4ML SYRINGE IV PRN ×2 (04:05→09:16)
[2021-11-27] MEDS: PIPERACILLIN-TAZOB 3.375GM 100 ML IV SCH ×3 (05:57→22:32)
[2021-11-27] MEDS: METOCLOPRAMIDE HCL 5MG/ml INJ 2ml VIAL IV SCH ×3 (05:57→22:33)
[2021-11-27] MEDS: ACCU-CHEK COMFORT CURVE STRIP VI SCH ×4 (05:57→23:30)
[2021-11-27] MEDS: InsuLIN REG 1unit/0.01ml Soln (100units/ml) SC SCH ×4 (06:00→23:29)
[2021-11-27] MEDS: HYDROmorphone HCL 2 MG/ML VL/or syr IV PRN ×4 (06:08→23:14)
[2021-11-27 09:03] VITALS: BP 161/77
[2021-11-27] MEDS: FAMOTIDINE (10MG/ML) 2ML VL IV SCH (09:15)
[2021-11-27] MEDS: LORazepam 2MG/ML-1ML VIAL IV PRN ×2 (09:16→16:53)
[2021-11-27] MEDS: cloNIDine HCL 0.1 MG TAB PO SCH ×2 (09:17→22:33)
[2021-11-27] MEDS: SODIUM CHLOR 0.9% PF (SALINE LOCK) 10ML VIAL/SYR IV SCH ×2 (09:18→22:33)
[2021-11-27 13:01] VITALS: BP 157/77
[2021-11-27 17:13] VITALS: BP 131/67
[2021-11-27] MEDS: FLUCONAZOLE 200MG/100ML 100 ML IV SCH (18:59)
[2021-11-27 22:00] VITALS: BP 143/69
[2021-11-28] MEDS: LORazepam 2MG/ML-1ML VIAL IV PRN ×2 (01:26→12:40)
[2021-11-28 05:00] VITALS: BP 137/76
[2021-11-28] MEDS: METOCLOPRAMIDE HCL 5MG/ml INJ 2ml VIAL IV SCH ×2 (05:41→14:18)
[2021-11-28] MEDS: PIPERACILLIN-TAZOB 3.375GM 100 ML IV SCH ×2 (05:42→14:18)
[2021-11-28] MEDS: InsuLIN REG 1unit/0.01ml Soln (100units/ml) SC SCH ×3 (05:42→16:59)
[2021-11-28] MEDS: ACCU-CHEK COMFORT CURVE STRIP VI SCH ×3 (05:42→17:00)
[2021-11-28 08:00] VITALS: BP 168/70
[2021-11-28] MEDS: SODIUM CHLOR 0.9% PF (SALINE LOCK) 10ML VIAL/SYR IV SCH ×2 (08:19→21:37)
[2021-11-28] MEDS: FAMOTIDINE (10MG/ML) 2ML VL IV SCH (08:20)
[2021-11-28] MEDS: cloNIDine HCL 0.1 MG TAB PO SCH ×3 (08:21→21:42)
[2021-11-28] MEDS: HYDROmorphone HCL 2 MG/ML VL/or syr IV PRN (08:22)
[2021-11-28 08:49] VITALS: BP 168/70
[2021-11-28 13:00] VITALS: BP 146/65
[2021-11-28 16:57] VITALS: BP 152/78
[2021-11-28] MEDS: LORazepam 0.5 MG TAB PO PRN (21:13)
[2021-11-28] MEDS: METOCLOPRAMIDE HCL 10 MG TAB PO SCH (21:38)
[2021-11-28 22:00] VITALS: BP 179/88
[2021-11-29] MEDS: ACCU-CHEK COMFORT CURVE STRIP VI SCH ×4 (00:36→18:08)
[2021-11-29] MEDS: HYDROcodone-ACET 10/325MG TAB PO PRN ×3 (04:52→18:09)
[2021-11-29] MEDS: METOCLOPRAMIDE HCL 10 MG TAB PO SCH ×2 (05:53→14:12)
[2021-11-29] MEDS: InsuLIN REG 1unit/0.01ml Soln (100units/ml) SC SCH ×4 (05:53→18:00)
[2021-11-29] MEDS: LABETALOL HCL 5 MG/ML 4ML SYRINGE IV PRN ×2 (06:06→18:09)
[2021-11-29 08:00] VITALS: BP 139/64
[2021-11-29] MEDS: SODIUM CHLOR 0.9% PF (SALINE LOCK) 10ML VIAL/SYR IV SCH (09:42)
[2021-11-29] MEDS: LORazepam 0.5 MG TAB PO PRN ×2 (09:43→16:05)
[2021-11-29] MEDS: cloNIDine HCL 0.1 MG TAB PO SCH (09:43)
[2021-11-29] MEDS ORDERED: FAMOTIDINE 20 MG TAB PO SCH (10:00)
[2021-11-29 12:00] VITALS: BP 136/62
[2021-11-29 16:00] VITALS: BP 164/76
== END 2021-11-29 20:15 | disposition home or self-care (01) | DRG 853 ==
LOC: ER 16:01 → EDBD 16:01 → EAST 23:21 → TELE-EAST 11-14 17:26
PROVIDERS: ADMIT Nurse Practitioner Family; ATTEND Internal Medicine Cardiovascular Disease
PROC: 0D9670Z Drainage of Stomach with Drainage Device, Via Natural or Artificial Opening (ICD-10-PCS; 2021-11-12)
PROC: 0WQF0ZZ Repair Abdominal Wall, Open Approach (ICD-10-PCS; 2021-11-15)
PROC: 0DBU0ZZ Excision of Omentum, Open Approach (ICD-10-PCS; principal; 2021-11-15 17:23)
PROC: 02HV33Z Insertion of Infusion Device into Superior Vena Cava, Percutaneous Approach (ICD-10-PCS; 2021-11-16)
PROC: B548ZZA Ultrasonography of Superior Vena Cava, Guidance (ICD-10-PCS; 2021-11-16)
DX: A41.9 Sepsis, unspecified organism (principal); I50.21 Acute systolic (congestive) heart failure; K65.9 Peritonitis, unspecified; K43.6 Other and unspecified ventral hernia with obstruction, without gangrene; N39.0 Urinary tract infection, site not specified; K56.690 Other partial intestinal obstruction; E87.1 Hypo-osmolality and hyponatremia; D68.59 Other primary thrombophilia; R64 Cachexia; I13.0 Hypertensive heart and chronic kidney disease with heart failure and stage 1 through stage 4 chronic kidney disease, or unspecified chronic kidney disease; Z68.1 Body mass index [BMI] 19.9 or less, adult; Z20.822 Contact with and (suspected) exposure to COVID-19; N18.9 Chronic kidney disease, unspecified; I48.91 Unspecified atrial fibrillation; E03.9 Hypothyroidism, unspecified; M54.50 Low back pain, unspecified; F32.A Depression, unspecified; F41.9 Anxiety disorder, unspecified; E78.5 Hyperlipidemia, unspecified; I25.10 Atherosclerotic heart disease of native coronary artery without angina pectoris; Z80.6 Family history of leukemia; Z80.8 Family history of malignant neoplasm of other organs or systems; Z82.49 Family history of ischemic heart disease and other diseases of the circulatory system; Z90.710 Acquired absence of both cervix and uterus; Z80.1 Family history of malignant neoplasm of trachea, bronchus and lung; Z98.61 Coronary angioplasty status; Z90.49 Acquired absence of other specified parts of digestive tract
CPT/HCPCS: 36415; 36569; 71045; 72131; 74018; 74176; 74250; 76705; 80053; 80069; 81001; 82150; 82962; 83690; 83735; 83880; 84100; 84478; 84484; 85025; 85610; 85730; 86850; 86900; 86901; 87086; 93005; 96365; 96375; 97110; 97116; 97163; 97530; G0378; J1100; J1450; J1815; J2001; J2250; J2405; J2543; J2704; J3480; J3490; J7042; J7060; J7131

== ENCOUNTER → 2022-03-26 | Outpatient (CLI) | payer MEDICARE, MEDICAID | END | disposition home or self-care (01) | LOC: Rad HDHVI 12:30 | PROVIDERS: ATTEND Internal Medicine Cardiovascular Disease | DX: M17.0 Bilateral primary osteoarthritis of knee (principal); M11.262 Other chondrocalcinosis, left knee; M11.261 Other chondrocalcinosis, right knee | CPT/HCPCS: 73562 ==

== ENCOUNTER → 2022-04-02 | Outpatient (CLI) | payer MEDICARE, MEDICAID | END | disposition home or self-care (01) | LOC: Rad HDHVI 09:08 | PROVIDERS: ATTEND Internal Medicine Cardiovascular Disease | DX: I07.1 Rheumatic tricuspid insufficiency (principal); R00.2 Palpitations; R06.02 Shortness of breath | CPT/HCPCS: 93306 ==

== ENCOUNTER → 2022-04-10 | Outpatient (CLI) | payer MEDICARE, MEDICAID ==
[2022-04-10 11:08] LABS: Basophils # (auto) 0 10 ^3/uL (0-0.2); Basophils % (auto) 0.2 % (0.0-2.0); Hemoglobin 11.4 g/dL (12.2-16.2); Neutrophils # (auto) 7.2 10 ^3/uL (1.6-8.6); White Blood Cell 11.6 10^3/uL (4.4-10.8)
[2022-04-10 11:12] LABS: Albumin 3.4 g/dL (3.4-5.0); BUN/Creatinine Ratio 15.4; Calcium 9.2 mg/dL (8.5-10.1)
[2022-04-10 11:14] LABS: Eosinophils # (auto) 0.6 10 ^3/uL (0-0.8); Eosinophils % (auto) 4.9 % (0.0-7.0); Hematocrit 34.2 % (36.0-46.0); Lymphocytes % (auto) 25.5 % (10.0-50.0); Mean Corpuscular Hemoglobin 29.5 pg (28.0-32.0); Mean Corpuscular Hgb Conc. 33.4 g/dL (32.0-36.0); Mean Corpuscular Volume 88.2 fL (80.0-100.0); Monocytes # (auto) 0.8 10 ^3/uL (0-1.3); Monocytes % (auto) 7.2 % (0.0-12.0); Neutrophils % (auto) 62.2 % (37.0-80.0); Nucleated Red Blood Cells % 0.2 %; Red Blood Cells 3.88 10^6/uL (4.0-5.20)
[2022-04-10 11:26] LABS: Urine Bacteria NONE SEEN /hpf (None Seen); Urine Blood Negative /uL (Negative); Urine Hyaline Cast FEW /lpf (0 - 2); Urine Specific Gravity 1.011 (1.001-1.035); Urine WBC 1 /hpf (0 - 5)
[2022-04-10 11:31] LABS: Protein, Urine 8.5 mg/dL (0.0-11.9)
[2022-04-10 13:20] LABS: Potassium 5.7 mmol/L (3.5-5.1)
== END | disposition home or self-care (01) ==
LOC: LAB 09:52
PROVIDERS: ATTEND Internal Medicine
DX: N18.31 Chronic kidney disease, stage 3a (principal); D63.1 Anemia in chronic kidney disease; E21.3 Hyperparathyroidism, unspecified; M10.9 Gout, unspecified; R80.9 Proteinuria, unspecified
CPT/HCPCS: 36415; 80069; 81001; 82306; 82570; 83970; 84156; 84550; 85025

== ENCOUNTER → 2022-04-17 | Outpatient (CLI) | payer MEDICARE, MEDICAID ==
[2022-04-17 13:40] LABS: Calcium 9.2 mg/dL (8.5-10.1); Potassium 4.6 mmol/L (3.5-5.1)
== END | disposition home or self-care (01) ==
LOC: LAB 12:40
PROVIDERS: ATTEND Internal Medicine
DX: N18.2 Chronic kidney disease, stage 2 (mild) (principal); E87.5 Hyperkalemia
CPT/HCPCS: 36415; 80048

== ENCOUNTER → 2022-04-23 | Outpatient (CLI) | payer MEDICARE, MEDICAID ==
[~2022-04-23] VITALS: Ht 162.6 cm; Wt 51.7 kg
[~2022-04-23] MED LIST changes: +ADENOSINE 43 MG in GIVE UN-DILUTED 0 ML IV ONE; +ADENOSINE 90 MG/30 ML INJ IV ONE
== END | disposition home or self-care (01) ==
LOC: Rad HDHVI 09:37
PROVIDERS: ATTEND Internal Medicine Cardiovascular Disease
DX: I10 Essential (primary) hypertension (principal); E78.5 Hyperlipidemia, unspecified; R07.9 Chest pain, unspecified; J44.9 Chronic obstructive pulmonary disease, unspecified; I25.10 Atherosclerotic heart disease of native coronary artery without angina pectoris; Z01.810 Encounter for preprocedural cardiovascular examination; Z82.49 Family history of ischemic heart disease and other diseases of the circulatory system; Z79.82 Long term (current) use of aspirin; Z79.899 Other long term (current) drug therapy
CPT/HCPCS: 78452; 93005; 96374; 96375; A9500; J0153

== ENCOUNTER → 2022-05-31 | Outpatient (CLI) | payer MEDICARE, MEDICAID ==
[~2022-05-31] MED LIST changes: -ADENOSINE 43 MG in GIVE UN-DILUTED 0 ML IV ONE; -ADENOSINE 90 MG/30 ML INJ IV ONE
[2022-05-31 16:36] LABS: Calcium 9.6 mg/dL (8.5-10.1); Potassium 4.5 mmol/L (3.5-5.1)
== END | disposition home or self-care (01) ==
LOC: LAB 10:51
PROVIDERS: ATTEND Internal Medicine Cardiovascular Disease
DX: I10 Essential (primary) hypertension (principal)
CPT/HCPCS: 36415; 80048

== ENCOUNTER → 2022-07-24 | Outpatient (CLI) | payer MEDICARE, MEDICAID ==
[2022-07-24 12:20] LABS: Basophils # (auto) 0 10 ^3/uL (0-0.2); Basophils % (auto) 0.4 % (0.0-2.0); Eosinophils # (auto) 0.5 10 ^3/uL (0-0.8); Eosinophils % (auto) 5.8 % (0.0-7.0); Hematocrit 36.2 % (36.0-46.0); Hemoglobin 12.2 g/dL (12.2-16.2); Lymphocytes # (auto) 2.5 10 ^3/uL (0.4-5.4); Lymphocytes % (auto) 28.1 % (10.0-50.0); Mean Corpuscular Hemoglobin 31.9 pg (28.0-32.0); Mean Corpuscular Hgb Conc. 33.9 g/dL (32.0-36.0); Mean Corpuscular Volume 94.1 fL (80.0-100.0); Monocytes # (auto) 0.8 10 ^3/uL (0-1.3); Monocytes % (auto) 8.5 % (0.0-12.0); Neutrophils # (auto) 5.2 10 ^3/uL (1.6-8.6); Neutrophils % (auto) 57.2 % (37.0-80.0); Nucleated Red Blood Cells % 0.1 %; Red Blood Cells 3.84 10^6/uL (4.0-5.20); Red Cell Distribution Width 17.4 % (11.8-14.3); Urine Bacteria NONE SEEN /hpf (None Seen); Urine Blood 1+ /uL (Negative); Urine Hyaline Cast FEW /lpf (0 - 2); Urine Specific Gravity 1.015 (1.001-1.035); Urine WBC 6 /hpf (0 - 5)
[2022-07-24 12:24] LABS: Albumin 3.7 g/dL (3.4-5.0); BUN/Creatinine Ratio 18.8; Calcium 8.9 mg/dL (8.5-10.1); Phosphorus 3.4 mg/dL (2.5-4.90); Potassium 4.5 mmol/L (3.5-5.1); Uric Acid 6.7 mg/dL (2.6-6.0)
== END | disposition home or self-care (01) ==
LOC: LAB 11:46
PROVIDERS: ATTEND Internal Medicine
DX: E11.22 Type 2 diabetes mellitus with diabetic chronic kidney disease (principal); N18.30 Chronic kidney disease, stage 3 unspecified; D63.1 Anemia in chronic kidney disease; N39.0 Urinary tract infection, site not specified; R80.9 Proteinuria, unspecified; E21.3 Hyperparathyroidism, unspecified; M10.9 Gout, unspecified; E55.9 Vitamin D deficiency, unspecified
CPT/HCPCS: 36415; 80069; 81001; 82570; 83970; 84156; 84550; 85025

== ENCOUNTER → 2022-09-04 | Outpatient (CLI) | payer MEDICARE, MEDICAID | END | disposition home or self-care (01) | LOC: Rad HDHVI 12:49 | PROVIDERS: ATTEND Internal Medicine Cardiovascular Disease | DX: I08.3 Combined rheumatic disorders of mitral, aortic and tricuspid valves (principal); R00.2 Palpitations; R06.02 Shortness of breath | CPT/HCPCS: 93306 ==

== ENCOUNTER → 2022-10-10 | Outpatient (CLI) | payer MEDICARE, MEDICAID ==
[2022-10-10 12:06] LABS: Basophils # (auto) 0 10 ^3/uL (0-0.2); Basophils % (auto) 0.4 % (0.0-2.0); Eosinophils # (auto) 0.6 10 ^3/uL (0-0.8); Eosinophils % (auto) 7.5 % (0.0-7.0); Hematocrit 38.3 % (36.0-46.0); Hemoglobin 12.9 g/dL (12.2-16.2); Lymphocytes # (auto) 2.8 10 ^3/uL (0.4-5.4); Lymphocytes % (auto) 32.4 % (10.0-50.0); Mean Corpuscular Hemoglobin 32.6 pg (28.0-32.0); Mean Corpuscular Hgb Conc. 33.6 g/dL (32.0-36.0); Monocytes # (auto) 0.8 10 ^3/uL (0-1.3); Monocytes % (auto) 9.7 % (0.0-12.0); Neutrophils # (auto) 4.3 10 ^3/uL (1.6-8.6); Nucleated Red Blood Cells % 0.1 %; Red Blood Cells 3.95 10^6/uL (4.0-5.20); White Blood Cell 8.6 10^3/uL (4.4-10.8)
== END | disposition home or self-care (01) ==
LOC: LAB 11:46
PROVIDERS: ATTEND Internal Medicine Cardiovascular Disease
DX: D64.9 Anemia, unspecified (principal)
CPT/HCPCS: 36415; 82270; 85025

== ENCOUNTER → 2022-12-11 | Outpatient (CLI) | payer MEDICARE, MEDICAID ==
[~2022-12-11] MED LIST changes: +AMIT50TA10 PO; -AMIT50TA5 PO; +CLIN150C18 PO; -CLIN150C8 PO; -HYDR12.56 PO; +HYDR12.59 PO; -LISI20TA28 PO; +LISI20TA56 PO; -SIMV-8 PO; +SIMV20TA20 PO; +TRAZ-227 PO; -TRAZ50TA2 PO
[2022-12-11 11:50] LABS: Basophils # (auto) 0.1 10 ^3/uL (0-0.2); Basophils % (auto) 0.6 % (0.0-2.0); Eosinophils # (auto) 0.3 10 ^3/uL (0-0.8); Eosinophils % (auto) 3.1 % (0.0-7.0); Hematocrit 37.6 % (36.0-46.0); Hemoglobin 12.7 g/dL (12.2-16.2); Lymphocytes # (auto) 2.9 10 ^3/uL (0.4-5.4); Lymphocytes % (auto) 31.9 % (10.0-50.0); Mean Corpuscular Hemoglobin 32.3 pg (28.0-32.0); Mean Corpuscular Hgb Conc. 33.8 g/dL (32.0-36.0); Mean Corpuscular Volume 95.6 fL (80.0-100.0); Monocytes # (auto) 0.8 10 ^3/uL (0-1.3); Monocytes % (auto) 8.4 % (0.0-12.0); Red Blood Cells 3.93 10^6/uL (4.0-5.20); Red Cell Distribution Width 14.5 % (11.8-14.3)
[2022-12-11 12:20] LABS: Urine Bacteria NONE SEEN /hpf (None Seen); Urine Blood Negative /uL (Negative); Urine Specific Gravity 1.007 (1.001-1.035); Urine WBC 1 /hpf (0 - 5)
[2022-12-11 12:27] LABS: Albumin 3.5 g/dL (3.4-5.0); BUN/Creatinine Ratio 22.5 (10.0-20.0); Calcium 8.7 mg/dL (8.5-10.1); Phosphorus 2.4 mg/dL (2.5-4.90); Uric Acid 6.3 mg/dL (2.6-6.0)
[2022-12-11 12:43] LABS: Protein, Urine 7.5 mg/dL (0.0-11.9)
== END | disposition home or self-care (01) ==
LOC: LAB 11:30
PROVIDERS: ATTEND Internal Medicine
DX: N18.30 Chronic kidney disease, stage 3 unspecified (principal); D63.1 Anemia in chronic kidney disease; N39.0 Urinary tract infection, site not specified; R80.9 Proteinuria, unspecified; E21.3 Hyperparathyroidism, unspecified; M10.9 Gout, unspecified; E55.9 Vitamin D deficiency, unspecified; E11.21 Type 2 diabetes mellitus with diabetic nephropathy
CPT/HCPCS: 36415; 80069; 81001; 82306; 82570; 83970; 84156; 84550; 85025

== ENCOUNTER → 2023-01-16 | Outpatient (CLI) | payer MEDICARE, MEDICAID ==
[2023-01-16 12:01] LABS: Basophils # (auto) 0 10 ^3/uL (0-0.2); Basophils % (auto) 0.4 % (0.0-2.0); Eosinophils # (auto) 0.2 10 ^3/uL (0-0.8); Eosinophils % (auto) 2.9 % (0.0-7.0); Hemoglobin 13.1 g/dL (12.2-16.2); Lymphocytes # (auto) 2.3 10 ^3/uL (0.4-5.4); Lymphocytes % (auto) 28.3 % (10.0-50.0); Mean Corpuscular Hemoglobin 32.3 pg (28.0-32.0); Mean Corpuscular Hgb Conc. 33.5 g/dL (32.0-36.0); Mean Corpuscular Volume 96.4 fL (80.0-100.0); Monocytes # (auto) 0.7 10 ^3/uL (0-1.3); Monocytes % (auto) 8.8 % (0.0-12.0); Neutrophils # (auto) 4.9 10 ^3/uL (1.6-8.6); Neutrophils % (auto) 59.6 % (37.0-80.0); Nucleated Red Blood Cells % 0.1 %; Red Blood Cells 4.04 10^6/uL (4.0-5.20); Red Cell Distribution Width 14.1 % (11.8-14.3); White Blood Cell 8.2 10^3/uL (4.4-10.8)
[2023-01-16 12:36] LABS: Albumin 3.6 g/dL (3.4-5.0); BUN/Creatinine Ratio 14.5 (10.0-20.0); Calcium 9.5 mg/dL (8.5-10.1); Phosphorus 3.2 mg/dL (2.5-4.90); Potassium 4.4 mmol/L (3.5-5.1); Uric Acid 7.9 mg/dL (2.6-6.0)
[2023-01-16 12:41] LABS: Protein, Urine 8.2 mg/dL (0.0-11.9)
== END | disposition home or self-care (01) ==
LOC: LAB 11:36
PROVIDERS: ATTEND Internal Medicine
DX: E21.3 Hyperparathyroidism, unspecified (principal); R80.9 Proteinuria, unspecified; E56.9 Vitamin deficiency, unspecified; M10.9 Gout, unspecified; D63.1 Anemia in chronic kidney disease; N18.30 Chronic kidney disease, stage 3 unspecified
CPT/HCPCS: 36415; 80069; 82306; 82570; 83970; 84156; 84550; 85025

== ENCOUNTER 2023-04-15 08:53 | Inpatient (IN) | payer MEDICARE, MEDICAID ==
[2023-04-10 10:49] LABS: Basophils # (auto) 0 10 ^3/uL (0-0.2); Basophils % (auto) 0.4 % (0.0-2.0); Eosinophils # (auto) 0.4 10 ^3/uL (0-0.8); Eosinophils % (auto) 5.3 % (0.0-7.0); Hematocrit 35.2 % (36.0-46.0); Hemoglobin 12.1 g/dL (12.2-16.2); Lymphocytes # (auto) 2.4 10 ^3/uL (0.4-5.4); Lymphocytes % (auto) 31.1 % (10.0-50.0); Mean Corpuscular Hemoglobin 32.8 pg (28.0-32.0); Mean Corpuscular Hgb Conc. 34.5 g/dL (32.0-36.0); Mean Corpuscular Volume 95.2 fL (80.0-100.0); Monocytes # (auto) 0.7 10 ^3/uL (0-1.3); Monocytes % (auto) 8.6 % (0.0-12.0); Neutrophils # (auto) 4.3 10 ^3/uL (1.6-8.6); Neutrophils % (auto) 54.6 % (37.0-80.0); Nucleated Red Blood Cells % 0.1 %; Red Cell Distribution Width 14.2 % (11.8-14.3); White Blood Cell 7.8 10^3/uL (4.4-10.8)
[2023-04-10 11:13] LABS: INR 0.96 (0.9-1.15); Partial Thromboplastin Time 27.6 SEC (24.5-34.5); Prothrombin Time 10.1 sec (9.3-11.8)
[2023-04-10 11:16] LABS: Alanine Aminotransferase 18 U/L (7-40); Albumin 3.9 g/dL (3.2-4.8); Alkaline Phosphatase 93 U/L (46-116); Anion Gap 3 (5-15); Aspartate Aminotransferase 20 U/L (13-40); BUN/Creatinine Ratio 10.7 (10.0-20.0); Blood Urea Nitrogen 11 mg/dL (9-23); Calcium 9.4 mg/dL (8.5-10.1); Carbon Dioxide 31 mmol/L (20-30); Chloride 105 mmol/L (98-107); Glucose 100 mg/dL (74-106); Potassium 4.3 mmol/L (3.5-5.1); Sodium 139 mmol/L (136-145)
[2023-04-10 11:17] LABS: Bilirubin, Total 0.4 mg/dL (0.2-1.0); Total Protein 6.5 g/dL (5.7-8.2)
[2023-04-10 11:23] LABS: Urine Bacteria NONE SEEN /hpf (None Seen); Urine Blood Negative /uL (Negative); Urine Clarity Clear (Clear); Urine Color Colorless (Yellow); Urine Hyaline Cast FEW /lpf (0 - 2); Urine Protein, UAD Negative (Negative); Urine Specific Gravity 1.007 (1.001-1.035); Urine Urobilinogen Normal (Negative); Urine WBC 2 /hpf (0 - 5); Urine pH 6.5 (5.0-8.0)
[~2023-04-15] VITALS: Ht 154.9 cm; Wt 54.7 kg
[~2023-04-15 08:53] MED LIST changes: -ACE3T PO; +ALPR0.254 PO; -BUSP15TA60 PO; -CEPH-509 PO; -CITA-77 PO; -CLIN150C18 PO; +DICL1GEL59 EX; -HYDR12.59 PO; +LACT20PA4 PO; -LORA10TA6 PO; +MELO7.5T7 PO; -METR500T PO; +OMEG-20 PO; +PANC3600 OR; -RANITAB8 PO; +TRAM50TA2 PO; -TRAZ-227 PO; +ceFAZolin 1GM/50ML 100 ML IV ONE
[2023-04-15] MEDS ORDERED: ACETAMINOPHEN IV 100 ML IV ONE (09:02)
[2023-04-15] MEDS ORDERED: CELECOXIB 100 MG CAP ONE (09:04)
[2023-04-15] MEDS ORDERED: BUPIVACAINE HCL 50 ML ONE (09:23)
[2023-04-15] MEDS ORDERED: TRANEXAMIC ACID 20 ML ONE (09:23)
[2023-04-15] MEDS ORDERED: VANCOMYCIN HCL 1000 MG VL ONE (09:25)
[2023-04-15] MEDS ORDERED: KETOROLAC TROMETH 30 MG/ML 1ML VIAL ONE (09:26)
[2023-04-15] MEDS ORDERED: MORPHINE SULF PF 5 MG/10 ML VIAL ONE ×2 (09:26→10:01)
[2023-04-15] MEDS ORDERED: PREGABALIN CAPSULE 75 MG CAP ONE (09:41)
[2023-04-15] MEDS ORDERED: TETRACAINE 1% INJ 2 ML VIAL IJ ONE (09:41)
[2023-04-15] MEDS ORDERED: fentaNYL CITRATE 100 MCG/2 ML VL ONE (10:01)
[2023-04-15] MEDS ORDERED: MIDAZOLAM HCL 2MG/2ML 2ml VIAL (1mg/ml) ONE (10:02)
[2023-04-15] MEDS ORDERED: DexAMETHasone SOD PHOS 10MG/1ML VIAL INJ ONE (10:44)
[2023-04-15] MEDS ORDERED: PROPOFOL 10 MG/ML 20 ML IV ONE (10:44)
[2023-04-15] MEDS ORDERED: MORPHINE SULFATE INJ 2 MG/ml SYRG IV PRN (11:45)
[2023-04-15] MEDS ORDERED: NITROGLYCERIN 0.4 MG SL TAB SL PRN (11:45)
[2023-04-15] MEDS ORDERED: ONDANSETRON HCL 4 MG/2 ML VIAL IV PRN ×2 (11:45→12:15)
[2023-04-15] MEDS ORDERED: LACTATED RINGER'S 1,000 ML IV SCH (11:45)
[2023-04-15] MEDS ORDERED: ACETAMINOPHEN 325 MG TAB PO PRN (11:45)
[2023-04-15 11:55] VITALS: O2SAT 100
[2023-04-15] MEDS ORDERED: EPINEPHrine HCL 1 MG/1 ML AMP ONE (11:56)
[2023-04-15] MEDS ORDERED: DexAMETHasone SOD PHOS 4 MG/1ML SDV INJ ONE (11:56)
[2023-04-15] MEDS ORDERED: SODIUM CHLORIDE LOCK 10 ML ONE (11:57)
[2023-04-15] MEDS ORDERED: DexAMETHasone SOD PHOS 10MG/1ML VIAL INJ IV PRN (12:15)
[2023-04-15] MEDS ORDERED: NALOXONE HCL 0.4 MG/ML VIAL IV PRN (12:15)
[2023-04-15] MEDS ORDERED: ePHEDrine SULFATE 50 MG/ML AMP IV PRN (12:15)
[2023-04-15] MEDS ORDERED: MIDAZOLAM HCL 2MG/2ML 2ml VIAL (1mg/ml) IV PRN (12:15)
[2023-04-15] MEDS ORDERED: LABETALOL HCL 5 MG/ML 4ML SYRINGE IV PRN (12:15)
[2023-04-15] MEDS ORDERED: HYDROmorphone HCL 2 MG/ML VL/or syr IV PRN (12:15)
[2023-04-15] MEDS: LACTATED RINGER'S 1,000 ML IV SCH (15:50)
[2023-04-15] MEDS: ceFAZolin 1GM/50ML 50 ML IV SCH ×2 (15:50→21:24)
[2023-04-15 16:58] VITALS: BP 166/48; PULSE 65; RESP 18; TEMP 98.1; O2SAT 95
[2023-04-15 17:33] VITALS: RESP 18; O2SAT 96
[2023-04-15] MEDS ORDERED: FUROSEMIDE 20 MG TAB PO SCH (18:00)
[2023-04-15 19:30] VITALS: PULSE 71; RESP 18; O2SAT 98
[2023-04-15 20:00] VITALS: PULSE 71
[2023-04-15] MEDS: OXYCODONE W/ ACETAMINOPHEN 5/325MG TABLET PO PRN (20:03)
[2023-04-15] MEDS: FAMOTIDINE 20 MG TAB PO SCH (21:18)
[2023-04-15] MEDS: PANCREATIC ENZYMES 4200 UNIT CAP PO SCH (21:18)
[2023-04-15] MEDS: DOCUSATE SOD 100 MG CAP PO SCH (21:20)
[2023-04-15] MEDS: ATORVASTATIN 20 MG TAB PO SCH (21:20)
[2023-04-15 22:00] VITALS: BP 119/62; PULSE 70; RESP 18; TEMP 97.4; O2SAT 99
[2023-04-15] MEDS ORDERED: PANTOPRAZOLE 40 MG TAB PO SCH (22:00)
[2023-04-16] MEDS ORDERED: ceFAZolin 1GM/50ML 50 ML IV SCH (04:00)
[2023-04-16] MEDS: LACTATED RINGER'S 1,000 ML IV SCH ×2 (04:20→12:55)
[2023-04-16 05:00] VITALS: BP 117/61; PULSE 62; RESP 18; TEMP 97.7; O2SAT 99
[2023-04-16] MEDS: LEVOTHYROXINE SODIUM 50 MCG TAB PO SCH (05:52)
[2023-04-16] MEDS: FUROSEMIDE 40 MG TAB PO SCH (05:52)
[2023-04-16] MEDS: OXYCODONE W/ ACETAMINOPHEN 5/325MG TABLET PO PRN ×2 (05:52→10:24)
[2023-04-16 06:45] LABS: Anion Gap 4 (5-15); Carbon Dioxide 28 mmol/L (20-30); Chloride 103 mmol/L (98-107); Potassium 3.5 mmol/L (3.5-5.1); Sodium 135 mmol/L (136-145)
[2023-04-16 06:46] LABS: Calcium 8.7 mg/dL (8.7-10.4)
[2023-04-16 06:50] LABS: Basophils # (auto) 0 10 ^3/uL (0-0.2); Basophils % (auto) 0.1 % (0.0-2.0); Eosinophils # (auto) 0 10 ^3/uL (0-0.8); Hematocrit 28.6 % (36.0-46.0); Hemoglobin 9.8 g/dL (12.2-16.2); Lymphocytes # (auto) 1.8 10 ^3/uL (0.4-5.4); Lymphocytes % (auto) 16.6 % (10.0-50.0); Mean Corpuscular Hemoglobin 33.3 pg (28.0-32.0); Mean Corpuscular Hgb Conc. 34.3 g/dL (32.0-36.0); Mean Corpuscular Volume 97.1 fL (80.0-100.0); Monocytes # (auto) 1.7 10 ^3/uL (0-1.3); Monocytes % (auto) 14.9 % (0.0-12.0); Neutrophils # (auto) 7.6 10 ^3/uL (1.6-8.6); Neutrophils % (auto) 68.4 % (37.0-80.0); Red Blood Cells 2.95 10^6/uL (4.0-5.20); Red Cell Distribution Width 14.1 % (11.8-14.3); White Blood Cell 11.1 10^3/uL (4.4-10.8)
[2023-04-16 06:51] LABS: Blood Urea Nitrogen 15 mg/dL (9-23); Glucose 115 mg/dL (74-106)
[2023-04-16 06:53] LABS: Urine Bacteria NONE SEEN /hpf (None Seen); Urine Blood Negative /uL (Negative); Urine Clarity Clear (Clear); Urine Protein, UAD TRACE (Negative); Urine Specific Gravity 1.008 (1.001-1.035); Urine Urobilinogen Normal (Negative); Urine WBC 1 /hpf (0 - 5); Urine pH 6.5 (5.0-8.0)
[2023-04-16 06:54] LABS: Urine Color Straw (Yellow)
[2023-04-16 08:00] VITALS: PULSE 65; PULSE 73; RESP 18; O2SAT 98
[2023-04-16] MEDS: PANCREATIC ENZYMES 4200 UNIT CAP PO SCH ×3 (08:10→18:00)
[2023-04-16] MEDS ORDERED: FATTY ACIDS PO SCH (10:00)
[2023-04-16] MEDS ORDERED: OMEGA PO SCH (10:00)
[2023-04-16] MEDS: LISINOPRIL 20 MG TAB PO SCH (10:00)
[2023-04-16] MEDS: ENOXAPARIN SOD 40 MG/0.4 ML SYRINGE SC SCH (10:00)
[2023-04-16] MEDS: AMITRIPTYLINE HCL 25 MG TAB PO SCH (11:00)
[2023-04-16] MEDS: METOPROLOL SUCCINATE XL 50 MG TAB PO SCH (11:00)
[2023-04-16] MEDS: DOCUSATE SOD 100 MG CAP PO SCH ×2 (11:00→21:04)
[2023-04-16] MEDS: ALPRAZolam 0.25 MG TAB PO PRN ×2 (11:10→21:16)
[2023-04-16] MEDS: HYDROmorphone HCL 2 MG/ML VL/or syr IV PRN (12:55)
[2023-04-16 17:00] VITALS: BP 125/58; PULSE 64; RESP 20; TEMP 97.9; O2SAT 100
[2023-04-16 20:00] VITALS: PULSE 73
[2023-04-16] MEDS: FAMOTIDINE 20 MG TAB PO SCH (21:04)
[2023-04-16] MEDS: ATORVASTATIN 20 MG TAB PO SCH (21:10)
[2023-04-16 22:00] VITALS: BP 148/67; PULSE 64; RESP 19; TEMP 98; O2SAT 99
[2023-04-17] MEDS: OXYCODONE W/ ACETAMINOPHEN 5/325MG TABLET PO PRN ×3 (04:26→18:26)
[2023-04-17 05:00] VITALS: BP 128/71; PULSE 71; RESP 16; TEMP 98.1; O2SAT 100
[2023-04-17] MEDS: LACTATED RINGER'S 1,000 ML IV SCH ×2 (06:06→20:20)
[2023-04-17] MEDS: LEVOTHYROXINE SODIUM 50 MCG TAB PO SCH (06:40)
[2023-04-17] MEDS: FUROSEMIDE 40 MG TAB PO SCH (06:40)
[2023-04-17 08:00] VITALS: BP 163/67; PULSE 69; PULSE 71; RESP 18; TEMP 98.3; O2SAT 92
[2023-04-17] MEDS: PANCREATIC ENZYMES 4200 UNIT CAP PO SCH ×3 (08:36→18:23)
[2023-04-17] MEDS: LISINOPRIL 20 MG TAB PO SCH (09:57)
[2023-04-17] MEDS: METOPROLOL SUCCINATE XL 50 MG TAB PO SCH (09:58)
[2023-04-17] MEDS: DOCUSATE SOD 100 MG CAP PO SCH ×2 (10:01→22:07)
[2023-04-17] MEDS: ENOXAPARIN SOD 40 MG/0.4 ML SYRINGE SC SCH (11:03)
[2023-04-17] MEDS: AMITRIPTYLINE HCL 25 MG TAB PO SCH (11:07)
[2023-04-17 12:00] VITALS: BP 151/78; PULSE 70; RESP 18; TEMP 97.9; O2SAT 98
[2023-04-17] MEDS: ALPRAZolam 0.25 MG TAB PO PRN (12:38)
[2023-04-17 16:00] VITALS: BP 159/82; PULSE 77; RESP 18; TEMP 97.9; O2SAT 100
[2023-04-17 20:00] VITALS: PULSE 72
[2023-04-17 22:00] VITALS: BP 147/61; PULSE 70; RESP 18; TEMP 97.3; O2SAT 100
[2023-04-17] MEDS: FAMOTIDINE 20 MG TAB PO SCH (22:07)
[2023-04-17] MEDS: ATORVASTATIN 20 MG TAB PO SCH (22:15)
[2023-04-18] MEDS: OXYCODONE W/ ACETAMINOPHEN 5/325MG TABLET PO PRN ×2 (03:48→09:58)
[2023-04-18 05:00] VITALS: BP 172/71; PULSE 78; RESP 18; TEMP 97.4; O2SAT 99
[2023-04-18] MEDS ORDERED: cloNIDine HCL 0.1 MG TAB PO PRN (06:00)
[2023-04-18] MEDS: ALPRAZolam 0.25 MG TAB PO PRN (06:39)
[2023-04-18] MEDS: LEVOTHYROXINE SODIUM 50 MCG TAB PO SCH (06:40)
[2023-04-18] MEDS: FUROSEMIDE 40 MG TAB PO SCH (06:40)
[2023-04-18] MEDS: HYDROmorphone HCL 2 MG/ML VL/or syr IV PRN (07:30)
[2023-04-18 07:57] LABS: Basophils # (auto) 0 10 ^3/uL (0-0.2); Basophils % (auto) 0.3 % (0.0-2.0); Eosinophils # (auto) 0.1 10 ^3/uL (0-0.8); Eosinophils % (auto) 1.4 % (0.0-7.0); Hematocrit 30.4 % (36.0-46.0); Hemoglobin 10.4 g/dL (12.2-16.2); Lymphocytes # (auto) 0.7 10 ^3/uL (0.4-5.4); Lymphocytes % (auto) 13.5 % (10.0-50.0); Mean Corpuscular Hemoglobin 32.4 pg (28.0-32.0); Mean Corpuscular Hgb Conc. 34.2 g/dL (32.0-36.0); Mean Corpuscular Volume 94.8 fL (80.0-100.0); Monocytes # (auto) 0.1 10 ^3/uL (0-1.3); Monocytes % (auto) 1.8 % (0.0-12.0); Neutrophils # (auto) 4.6 10 ^3/uL (1.6-8.6); Red Cell Distribution Width 14.2 % (11.8-14.3); White Blood Cell 5.5 10^3/uL (4.4-10.8)
[2023-04-18 08:00] VITALS: BP 154/69; PULSE 81; PULSE 82; RESP 20; TEMP 98.7; O2SAT 93
[2023-04-18 08:19] LABS: Partial Thromboplastin Time 25.8 SEC (24.5-34.5); Prothrombin Time 10.5 sec (9.3-11.8)
[2023-04-18] MEDS: LACTATED RINGER'S 1,000 ML IV SCH (09:40)
[2023-04-18] MEDS: PANCREATIC ENZYMES 4200 UNIT CAP PO SCH ×2 (09:56→14:23)
[2023-04-18] MEDS: DOCUSATE SOD 100 MG CAP PO SCH (09:56)
[2023-04-18] MEDS: ENOXAPARIN SOD 40 MG/0.4 ML SYRINGE SC SCH (09:56)
[2023-04-18] MEDS: METOPROLOL SUCCINATE XL 50 MG TAB PO SCH (09:57)
[2023-04-18] MEDS: AMITRIPTYLINE HCL 25 MG TAB PO SCH (09:57)
[2023-04-18] MEDS: LISINOPRIL 20 MG TAB PO SCH (09:58)
[2023-04-18 12:00] VITALS: BP 84/45; PULSE 80; RESP 18; TEMP 98.2; O2SAT 99
[2023-04-18] MEDS ORDERED: POTASSIUM EFFERVESENT TAB 25 MEQ GT ONE (12:15)
[2023-04-18 16:00] VITALS: BP 100/43; PULSE 74; RESP 18; TEMP 98.5; O2SAT 100
== END 2023-04-18 16:50 | DRG 470 ==
LOC: SUR 08:53 → TELE 11:39 → TELE-CENTR 16:34
PROVIDERS: ADMIT Orthopaedic Surgery Adult Reconstructive Orthopaedic Surgery; ATTEND Internal Medicine Cardiovascular Disease
PROC: 0SRC0J9 Replacement of Right Knee Joint with Synthetic Substitute, Cemented, Open Approach (ICD-10-PCS; principal; 2023-04-16)
PROC: 8E0YXBZ Computer Assisted Procedure of Lower Extremity (ICD-10-PCS; 2023-04-16)
DX: M17.11 Unilateral primary osteoarthritis, right knee (principal); D68.59 Other primary thrombophilia; I50.32 Chronic diastolic (congestive) heart failure; N39.0 Urinary tract infection, site not specified; D64.9 Anemia, unspecified; E03.9 Hypothyroidism, unspecified; H91.90 Unspecified hearing loss, unspecified ear; M21.061 Valgus deformity, not elsewhere classified, right knee; I11.0 Hypertensive heart disease with heart failure; I25.10 Atherosclerotic heart disease of native coronary artery without angina pectoris; I48.91 Unspecified atrial fibrillation; E78.5 Hyperlipidemia, unspecified; E87.6 Hypokalemia; Z95.5 Presence of coronary angioplasty implant and graft; Z80.1 Family history of malignant neoplasm of trachea, bronchus and lung; Z80.6 Family history of leukemia; Z80.8 Family history of malignant neoplasm of other organs or systems; Z82.49 Family history of ischemic heart disease and other diseases of the circulatory system; N28.9 Disorder of kidney and ureter, unspecified
CPT/HCPCS: 36415; 73562; 80048; 80053; 81001; 84443; 85025; 85610; 85730; 97110; 97116; 97163; 97530; G0378; J0131; J0171; J0690; J1100; J1885; J2250; J2704; J3490

== ENCOUNTER → 2023-06-04 | Outpatient (CLI) | payer MEDICARE, MEDICAID ==
[~2023-06-04] MED LIST changes: -ceFAZolin 1GM/50ML 100 ML IV ONE
[2023-06-04 12:15] LABS: Basophils # (auto) 0 10 ^3/uL (0-0.2); Basophils % (auto) 0.5 % (0.0-2.0); Eosinophils # (auto) 0.2 10 ^3/uL (0-0.8); Hemoglobin 9.9 g/dL (12.2-16.2); Mean Corpuscular Volume 95.7 fL (80.0-100.0); Red Blood Cells 3.14 10^6/uL (4.0-5.20)
[2023-06-04 12:18] LABS: Eosinophils % (auto) 2.8 % (0.0-7.0); Lymphocytes % (auto) 25.1 % (10.0-50.0); Mean Corpuscular Hemoglobin 31.7 pg (28.0-32.0); Mean Corpuscular Hgb Conc. 33.1 g/dL (32.0-36.0); Monocytes # (auto) 0.9 10 ^3/uL (0-1.3); Monocytes % (auto) 10.6 % (0.0-12.0); Neutrophils # (auto) 4.9 10 ^3/uL (1.6-8.6); Red Cell Distribution Width 16.5 % (11.8-14.3); White Blood Cell 8.1 10^3/uL (4.4-10.8)
[2023-06-04 12:39] LABS: Urine Bacteria NONE SEEN /hpf (None Seen); Urine Blood Negative /uL (Negative); Urine Clarity Clear (Clear); Urine Color Colorless (Yellow); Urine Hyaline Cast FEW /lpf (0 - 2); Urine Protein, UAD Negative (Negative); Urine Specific Gravity 1.008 (1.001-1.035); Urine Urobilinogen Normal (Negative); Urine WBC <1 /hpf (0 - 5); Urine pH 6.5 (5.0-8.0)
[2023-06-04 13:43] LABS: Creatinine, Urine 18.5 mg/dL (30.0-125.0)
[2023-06-04 13:45] LABS: Alanine Aminotransferase 16 U/L (7-40); Alkaline Phosphatase 87 U/L (46-116); Anion Gap 6 (5-15); Aspartate Aminotransferase 24 U/L (13-40); BUN/Creatinine Ratio 14.4 (10.0-20.0); Blood Urea Nitrogen 27 mg/dL (9-23); Calcium 9.6 mg/dL (8.5-10.1); Carbon Dioxide 27 mmol/L (20-30); Chloride 102 mmol/L (98-107); Glucose 93 mg/dL (74-106); Potassium 4.5 mmol/L (3.5-5.1); Sodium 135 mmol/L (136-145)
[2023-06-04 13:46] LABS: Bilirubin, Total 0.2 mg/dL (0.2-1.0)
[2023-06-04 14:04] LABS: Uric Acid 5.5 mg/dL (3.1-7.8)
[2023-06-04 14:06] LABS: Magnesium 3.4 mg/dL (1.6-2.6)
== END | disposition home or self-care (01) ==
LOC: LAB 11:56
PROVIDERS: ATTEND Internal Medicine
DX: E11.22 Type 2 diabetes mellitus with diabetic chronic kidney disease (principal); N18.30 Chronic kidney disease, stage 3 unspecified; D63.1 Anemia in chronic kidney disease; N39.0 Urinary tract infection, site not specified; R80.9 Proteinuria, unspecified; E21.3 Hyperparathyroidism, unspecified; M10.9 Gout, unspecified; E11.21 Type 2 diabetes mellitus with diabetic nephropathy; E55.9 Vitamin D deficiency, unspecified
CPT/HCPCS: 36415; 80053; 81001; 82043; 82306; 82570; 83036; 83735; 83970; 84550; 85025

== ENCOUNTER → 2023-06-20 | Outpatient (CLI) | payer MEDICARE, MEDICAID ==
[2023-06-20 12:30] LABS: Basophils # (auto) 0 10 ^3/uL (0-0.2); Basophils % (auto) 0.3 % (0.0-2.0); Lymphocytes # (auto) 2.6 10 ^3/uL (0.4-5.4); Lymphocytes % (auto) 19.3 % (10.0-50.0)
[2023-06-20 12:33] LABS: Eosinophils # (auto) 0.3 10 ^3/uL (0-0.8); Eosinophils % (auto) 1.9 % (0.0-7.0); Hematocrit 26.6 % (36.0-46.0); Hemoglobin 8.9 g/dL (12.2-16.2); Mean Corpuscular Hemoglobin 31.3 pg (28.0-32.0); Mean Corpuscular Hgb Conc. 33.4 g/dL (32.0-36.0); Mean Corpuscular Volume 93.5 fL (80.0-100.0); Monocytes # (auto) 1.3 10 ^3/uL (0-1.3); Monocytes % (auto) 9.2 % (0.0-12.0); Neutrophils # (auto) 9.4 10 ^3/uL (1.6-8.6); Neutrophils % (auto) 69.3 % (37.0-80.0); Red Blood Cells 2.84 10^6/uL (4.0-5.20); Red Cell Distribution Width 16.3 % (11.8-14.3); White Blood Cell 13.6 10^3/uL (4.4-10.8)
[2023-06-20 12:42] LABS: INR 0.94 (0.9-1.15); Partial Thromboplastin Time 28.6 SEC (24.5-34.5); Prothrombin Time 9.9 sec (9.3-11.8)
[2023-06-20 12:50] LABS: Urine Bacteria FEW /hpf (None Seen); Urine Blood Negative /uL (Negative); Urine Clarity HAZY (Clear); Urine Hyaline Cast FEW /lpf (0 - 2); Urine Protein, UAD Negative (Negative); Urine Specific Gravity 1.009 (1.001-1.035); Urine Urobilinogen Normal (Negative); Urine WBC 151 /hpf (0 - 5)
[2023-06-20 12:51] LABS: Urine Color Straw (Yellow)
[2023-06-20 13:31] LABS: Alanine Aminotransferase 15 U/L (7-40); Alkaline Phosphatase 99 U/L (46-116); Anion Gap 6 (5-15); Calcium 9.1 mg/dL (8.5-10.1); Carbon Dioxide 29 mmol/L (20-30); Chloride 100 mmol/L (98-107); Potassium 5.5 mmol/L (3.5-5.1); Sodium 135 mmol/L (136-145)
[2023-06-20 13:32] LABS: Aspartate Aminotransferase 12 U/L (13-40); BUN/Creatinine Ratio 24.2 (10.0-20.0); Blood Urea Nitrogen 37 mg/dL (9-23); Glucose 94 mg/dL (74-106)
[2023-06-20 13:34] LABS: Albumin 3.7 g/dL (3.2-4.8); Bilirubin, Total < 0.2 mg/dL (0.2-1.0); Total Protein 6.7 g/dL (5.7-8.2)
== END | disposition home or self-care (01) ==
LOC: LAB 11:55
PROVIDERS: ATTEND Orthopaedic Surgery Adult Reconstructive Orthopaedic Surgery
DX: Z01.812 Encounter for preprocedural laboratory examination (principal); I50.32 Chronic diastolic (congestive) heart failure
CPT/HCPCS: 36415; 80053; 81001; 85025; 85610; 85730

== ENCOUNTER → 2023-06-27 | Day surgery (SDC) | payer MEDICARE, MEDICAID ==
[~2023-06-27] VITALS: Ht 154.9 cm; Wt 49.9 kg
[~2023-06-27] MED LIST changes: +BUPIVACAINE 0.5% P/F INJ 10 ML VIAL ONE; +DexAMETHasone SOD PHOS 10MG/1ML VIAL INJ ONE; +DexAMETHasone SOD PHOS 4 MG/1ML SDV INJ ONE; +EPINEPHrine HCL 1 MG/1 ML AMP ONE; +FLUMAZENIL 0.1 MG/ML INJ 10ML MDV IV PRN; +GLYCOPYRROLATE 0.2 MG/ML 1ML VIAL ONE; +HYDROmorphone HCL 2 MG/ML VL/or syr IV ONE; +HYDROmorphone HCL 2 MG/ML VL/or syr IV PRN; +LABETALOL HCL 5 MG/ML 4ML SYRINGE IV PRN; +LIDOCAINE 2% (LOCAL ANESTH.) PF 5ml SDV ONE; +LIDOCAINE HCL (LOCAL ANESTH.) 0.5 % 50ML MDV IJ ONE; +NALOXONE HCL 0.4 MG/ML VIAL IV PRN; +ONDANSETRON HCL 4 MG/2 ML VIAL IV PRN; +ONDANSETRON HCL 4 MG/2 ML VIAL ONE; +PROPOFOL 10 MG/ML 20 ML IV ONE; +SODIUM CHLORIDE LOCK 10 ML ONE; +VANCOMYCIN HCL 1000 MG VL ONE; +ceFAZolin 1GM VL ONE; +ceFAZolin 2 GM/D5W100ml 100 ML IV ONE; +ePHEDrine SULFATE 50 MG/ML AMP IV PRN; +fentaNYL CITRATE 100 MCG/2 ML VL IV PRN; +hydrALAZINE HCL 20 MG/ML VL IV PRN; +oxyCODONE HCL 5MG TAB PO PRN
[2023-06-27 12:22] VITALS: TEMP 98.2
[2023-06-27 13:41] VITALS: PULSE 85
[2023-06-27 14:41] VITALS: BP 156/73; PULSE 71; RESP 15; O2SAT 94
== END | disposition home or self-care (01) ==
LOC: SUR 10:51
PROVIDERS: ATTEND Orthopaedic Surgery Adult Reconstructive Orthopaedic Surgery
DX: T81.30XA Disruption of wound, unspecified, initial encounter (principal); Y83.8 Other surgical procedures as the cause of abnormal reaction of the patient, or of later complication, without mention of misadventure at the time of the procedure; Z96.651 Presence of right artificial knee joint; I10 Essential (primary) hypertension; Z79.899 Other long term (current) drug therapy
CPT/HCPCS: 27603; 87070; 87075; 87077; 87186; 87205; J0171; J0690; J1100; J1170; J2001; J2405; J2704; J3370; J3490

== ENCOUNTER 2024-02-26 14:41 | Inpatient (IN) | payer MEDICARE, MEDICAID ==
[~2024-02-26] VITALS: Ht 162.6 cm; Wt 57.4 kg
[~2024-02-26 14:41] MED LIST changes: -AMIT50TA10 PO; +AMIT50TA12 PO; -BUPIVACAINE 0.5% P/F INJ 10 ML VIAL ONE; -DexAMETHasone SOD PHOS 10MG/1ML VIAL INJ ONE; -DexAMETHasone SOD PHOS 4 MG/1ML SDV INJ ONE; -EPINEPHrine HCL 1 MG/1 ML AMP ONE; -FLUMAZENIL 0.1 MG/ML INJ 10ML MDV IV PRN; -GLYCOPYRROLATE 0.2 MG/ML 1ML VIAL ONE; -HYDROmorphone HCL 2 MG/ML VL/or syr IV ONE; -HYDROmorphone HCL 2 MG/ML VL/or syr IV PRN; -LABETALOL HCL 5 MG/ML 4ML SYRINGE IV PRN; -LIDOCAINE 2% (LOCAL ANESTH.) PF 5ml SDV ONE; -LIDOCAINE HCL (LOCAL ANESTH.) 0.5 % 50ML MDV IJ ONE; -NALOXONE HCL 0.4 MG/ML VIAL IV PRN; -ONDANSETRON HCL 4 MG/2 ML VIAL IV PRN; -ONDANSETRON HCL 4 MG/2 ML VIAL ONE; -PROPOFOL 10 MG/ML 20 ML IV ONE; -SODIUM CHLORIDE LOCK 10 ML ONE; -VANCOMYCIN HCL 1000 MG VL ONE; -ceFAZolin 1GM VL ONE; -ceFAZolin 2 GM/D5W100ml 100 ML IV ONE; -ePHEDrine SULFATE 50 MG/ML AMP IV PRN; -fentaNYL CITRATE 100 MCG/2 ML VL IV PRN; -hydrALAZINE HCL 20 MG/ML VL IV PRN; -oxyCODONE HCL 5MG TAB PO PRN
[2024-02-26 15:29] LABS: Urine Bacteria None Seen /hpf (None Seen)
[2024-02-26 15:47] LABS: Urine Blood Negative /uL (Negative); Urine Clarity Clear (Clear); Urine Color Colorless (Yellow); Urine Protein, UAD Negative (Negative); Urine Specific Gravity 1.008 (1.001-1.035); Urine Urobilinogen Normal (Negative); Urine WBC 1 /hpf (0 - 5)
[2024-02-26] MEDS: MORPHINE SULFATE INJ 2 MG/ml SYRG IV ONE (16:04)
[2024-02-26] MEDS: ONDANSETRON HCL 4 MG/2 ML VIAL IV ONE ×2 (16:05→19:00)
[2024-02-26] MEDS: SODIUM CHLORIDE 0.9% 1,000 ML IV ONE ×2 (16:05→20:25)
[2024-02-26 16:15] LABS: Basophils # (auto) 0.1 10 ^3/uL (0-0.2); Basophils % (auto) 0.5 % (0.0-2.0); Eosinophils # (auto) 0.3 10 ^3/uL (0-0.8); Eosinophils % (auto) 2.7 % (0.0-7.0); Hematocrit 35.1 % (36.0-46.0); Hemoglobin 12.1 g/dL (12.2-16.2); Lymphocytes # (auto) 2.5 10 ^3/uL (0.4-5.4); Lymphocytes % (auto) 25.4 % (10.0-50.0); Mean Corpuscular Hemoglobin 33.9 pg (28.0-32.0); Mean Corpuscular Hgb Conc. 34.6 g/dL (32.0-36.0); Monocytes # (auto) 1.1 10 ^3/uL (0-1.3); Monocytes % (auto) 11.1 % (0.0-12.0); Neutrophils # (auto) 6.1 10 ^3/uL (1.6-8.6); Neutrophils % (auto) 60.3 % (37.0-80.0); Platelet Count (auto) 365 10^3/uL (140-450); Red Blood Cells 3.58 10^6/uL (4.0-5.20); Red Cell Distribution Width 14.2 % (11.8-14.3)
[2024-02-26 16:36] LABS: Alanine Aminotransferase 17 U/L (7-40); Albumin 3.9 g/dL (3.2-4.8); Alkaline Phosphatase 73 U/L (46-116); Anion Gap 4 (5-15); Aspartate Aminotransferase 21 U/L (13-40); BUN/Creatinine Ratio 24.8 (10.0-20.0); Blood Urea Nitrogen 31 mg/dL (9-23); Calcium 9.8 mg/dL (8.7-10.4); Carbon Dioxide 31 mmol/L (20-30); Chloride 106 mmol/L (98-107); Glucose 91 mg/dL (74-106); Sodium 141 mmol/L (136-145)
[2024-02-26 16:37] LABS: Bilirubin, Total 0.3 mg/dL (0.2-1.0); Total Protein 6.6 g/dL (5.7-8.2)
[2024-02-26] MEDS: IOHEXOL 300 MG/ML 100ML BOTTLE IJ ONE (16:57)
[2024-02-26 17:05] VITALS: PULSE 68; RESP 20; O2SAT 97
[2024-02-26] MEDS: MORPHINE SULFATE 4 MG/ML SYR/VIAL IV ONE (19:00)
[2024-02-26 19:50] VITALS: PULSE 58; RESP 16; O2SAT 97
[2024-02-26] MEDS: HYDROcodone-ACET 5/325MG TAB PO PRN (21:40)
[2024-02-26] MEDS: SUCRALFATE 1 GM TAB PO SCH (21:40)
[2024-02-26] MEDS: ATORVASTATIN 20 MG TAB PO SCH (21:42)
[2024-02-26] MEDS: cloNIDine HCL 0.1 MG TAB PO PRN (22:11)
[2024-02-27] VITALS (8 sets, daily range): BP systolic 144–194; BP diastolic 75–83; PULSE 53–61; RESP 16–20; TEMP 98–98.4; O2SAT 96–98
[2024-02-27] MEDS: ONDANSETRON HCL 4 MG/2 ML VIAL IV PRN (03:07)
[2024-02-27 05:52] LABS: Basophils # (auto) 0 10 ^3/uL (0-0.2); Basophils % (auto) 0.4 % (0.0-2.0); Eosinophils # (auto) 0.3 10 ^3/uL (0-0.8); Eosinophils % (auto) 3.8 % (0.0-7.0); Hematocrit 33.5 % (36.0-46.0); Hemoglobin 11.6 g/dL (12.2-16.2); Lymphocytes # (auto) 1.9 10 ^3/uL (0.4-5.4); Lymphocytes % (auto) 25.5 % (10.0-50.0); Mean Corpuscular Hemoglobin 33.8 pg (28.0-32.0); Mean Corpuscular Hgb Conc. 34.8 g/dL (32.0-36.0); Mean Corpuscular Volume 97.4 fL (80.0-100.0); Monocytes # (auto) 0.7 10 ^3/uL (0-1.3); Monocytes % (auto) 9.6 % (0.0-12.0); Neutrophils # (auto) 4.4 10 ^3/uL (1.6-8.6); Neutrophils % (auto) 60.7 % (37.0-80.0); Nucleated Red Blood Cells % 0.1 %; Platelet Count (auto) 359 10^3/uL (140-450); Red Blood Cells 3.44 10^6/uL (4.0-5.20); Red Cell Distribution Width 13.9 % (11.8-14.3); White Blood Cell 7.3 10^3/uL (4.4-10.8)
[2024-02-27 06:01] LABS: Anion Gap 10 (5-15); Carbon Dioxide 27 mmol/L (20-30); Chloride 106 mmol/L (98-107); Potassium 3.2 mmol/L (3.5-5.1); Sodium 143 mmol/L (136-145)
[2024-02-27 06:03] LABS: Calcium 8.9 mg/dL (8.7-10.4)
[2024-02-27 06:07] LABS: BUN/Creatinine Ratio 20.6 (10.0-20.0); Blood Urea Nitrogen 21 mg/dL (9-23); Glucose 97 mg/dL (74-106)
[2024-02-27] MEDS: PANTOPRAZOLE 40 MG TAB PO SCH (06:55)
[2024-02-27] MEDS: LEVOTHYROXINE SODIUM 25 MCG TAB PO SCH (07:13)
[2024-02-27] MEDS: METOPROLOL SUCCINATE XL 50 MG TAB PO SCH (08:58)
[2024-02-27] MEDS: FUROSEMIDE 40 MG TAB PO SCH (08:58)
[2024-02-27] MEDS: LISINOPRIL 20 MG TAB PO SCH (08:59)
[2024-02-27] MEDS ORDERED: CARI-578 PO (10:14)
[2024-02-27] MEDS ORDERED: MECL-90 PO (10:14)
[2024-02-27] MEDS ORDERED: BUPR-346 PO (10:14)
[2024-02-27] MEDS ORDERED: DICL75TA3 PO (10:14)
[2024-02-27] MEDS ORDERED: FLUT0.05 NAS (10:14)
[2024-02-27] MEDS ORDERED: AMIT25TA20 PO (10:14)
[2024-02-27] MEDS ORDERED: SIMV40TA18 PO (10:14)
[2024-02-27] MEDS ORDERED: OMEP20TA PO (10:14)
[2024-02-27] MEDS ORDERED: FURO40TA4 PO (10:14)
[2024-02-27] MEDS ORDERED: DICL1GEL59 EX (10:14)
[2024-02-27] MEDS ORDERED: CYCL-839 PO (10:14)
[2024-02-27] MEDS ORDERED: HYDR-4798 PO (10:14)
[2024-02-27] MEDS ORDERED: POTA-36 PO (10:14)
[2024-02-27] MEDS ORDERED: HYDR25TA4 PO (10:14)
[2024-02-27] MEDS ORDERED: DOCU-94 PO (10:14)
[2024-02-27] MEDS: ACETAMINOPHEN 325 MG TAB PO PRN (10:19)
[2024-02-27 10:37] LABS: Hepatitis B Surface Antigen Negative (Negative)
[2024-02-27 10:58] LABS: Hepatitis C Antibody Negative (Negative)
[2024-02-27 14:08] LABS: INR 0.99 (0.9-1.15); Prothrombin Time 10.5 sec (9.3-11.8)
[2024-02-27] MEDS: GOLYTELY 4L KIT PO ONE (14:09)
[2024-02-27] MEDS: POTASSIUM CHL 20 Meq TABLET PO ONE (14:17)
[2024-02-27] MEDS: DOCUSATE SOD 100 MG CAP PO SCH (21:38)
[2024-02-28] VITALS (10 sets, daily range): BP systolic 118–174; BP diastolic 56–79; PULSE 55–70; RESP 14–20; TEMP 97.8–98.5; O2SAT 93–100
[2024-02-28] MEDS: GOLYTELY 4L KIT PO ONE (07:09)
[2024-02-28] MEDS: LACTULOSE 20Gm/30ML SOLN PO SCH (08:21)
[2024-02-28] MEDS: MAGNESIUM CITRATE SOLUTION 300 ML BTL PO ONE (09:35)
[2024-02-28] MEDS ORDERED: fentaNYL CITRATE 100 MCG/2 ML VL ONE (14:56)
[2024-02-28] MEDS ORDERED: MIDAZOLAM HCL 2MG/2ML 2ml VIAL (1mg/ml) ONE (14:56)
[2024-02-28] MEDS ORDERED: ONDANSETRON HCL 4 MG/2 ML VIAL IV ONE (15:00)
[2024-02-28] MEDS ORDERED: ONDANSETRON HCL 4 MG/2 ML VIAL ONE (15:16)
[2024-02-28] MEDS ORDERED: PROPOFOL 10 MG/ML 20 ML IV ONE (15:16)
[2024-02-29 01:00] VITALS: BP 155/92; PULSE 59; RESP 14; TEMP 97.6; O2SAT 96
[2024-02-29 05:00] VITALS: BP 162/91; PULSE 63; RESP 14; TEMP 97.8; O2SAT 96
[2024-02-29 09:00] VITALS: BP 134/67; PULSE 54; RESP 16; TEMP 98.3; O2SAT 98
[2024-02-29 09:32] LABS: Basophils # (auto) 0 10 ^3/uL (0-0.2); Basophils % (auto) 0.3 % (0.0-2.0); Eosinophils # (auto) 0.1 10 ^3/uL (0-0.8); Eosinophils % (auto) 1.6 % (0.0-7.0); Hematocrit 37.9 % (36.0-46.0); Lymphocytes # (auto) 2.1 10 ^3/uL (0.4-5.4); Lymphocytes % (auto) 21.7 % (10.0-50.0); Mean Corpuscular Hemoglobin 33.9 pg (28.0-32.0); Mean Corpuscular Hgb Conc. 34.3 g/dL (32.0-36.0); Mean Corpuscular Volume 98.8 fL (80.0-100.0); Monocytes # (auto) 0.8 10 ^3/uL (0-1.3); Monocytes % (auto) 8.5 % (0.0-12.0); Neutrophils # (auto) 6.5 10 ^3/uL (1.6-8.6); Neutrophils % (auto) 67.9 % (37.0-80.0); Nucleated Red Blood Cells % 0.1 %; Platelet Count (auto) 414 10^3/uL (140-450); Red Blood Cells 3.84 10^6/uL (4.0-5.20); Red Cell Distribution Width 13.9 % (11.8-14.3); White Blood Cell 9.6 10^3/uL (4.4-10.8)
[2024-02-29 09:33] LABS: Alanine Aminotransferase 13 U/L (7-40); Alkaline Phosphatase 75 U/L (46-116); Anion Gap 3 (5-15); Aspartate Aminotransferase 29 U/L (13-40); BUN/Creatinine Ratio 11.6 (10.0-20.0); Bilirubin, Total 0.4 mg/dL (0.2-1.0); Blood Urea Nitrogen 11 mg/dL (9-23); Calcium 9.7 mg/dL (8.7-10.4); Carbon Dioxide 29 mmol/L (20-30); Chloride 107 mmol/L (98-107); Glucose 127 mg/dL (74-106); Magnesium 2.5 mg/dL (1.6-2.6); Potassium 3.1 mmol/L (3.5-5.1); Sodium 139 mmol/L (136-145)
[2024-02-29] MEDS ORDERED: DOCU-94 PO (10:59)
[2024-02-29 13:00] VITALS: BP 157/68; PULSE 55; RESP 16; TEMP 98.6; O2SAT 96
== END 2024-02-29 16:15 | disposition home or self-care (01) | DRG 393 ==
LOC: ER 14:41 → EDBD 14:41 → OVERFLOW 20:45 → WEST WING 02-27 08:31
PROVIDERS: ADMIT Nurse Practitioner; ATTEND Family Medicine
PROC: 0DBL8ZZ Excision of Transverse Colon, Via Natural or Artificial Opening Endoscopic (ICD-10-PCS; 2024-02-28)
PROC: 0DBK8ZZ Excision of Ascending Colon, Via Natural or Artificial Opening Endoscopic (ICD-10-PCS; principal; 2024-02-28 14:52)
DX: K63.5 Polyp of colon (principal); N17.0 Acute kidney failure with tubular necrosis; I13.0 Hypertensive heart and chronic kidney disease with heart failure and stage 1 through stage 4 chronic kidney disease, or unspecified chronic kidney disease; K59.09 Other constipation; K57.30 Diverticulosis of large intestine without perforation or abscess without bleeding; I16.0 Hypertensive urgency; E03.9 Hypothyroidism, unspecified; E78.00 Pure hypercholesterolemia, unspecified; F32.A Depression, unspecified; Z96.651 Presence of right artificial knee joint; N18.9 Chronic kidney disease, unspecified; I50.9 Heart failure, unspecified; I48.91 Unspecified atrial fibrillation; F41.9 Anxiety disorder, unspecified; K64.8 Other hemorrhoids; Z90.49 Acquired absence of other specified parts of digestive tract; Z90.710 Acquired absence of both cervix and uterus; Z87.891 Personal history of nicotine dependence
CPT/HCPCS: 36415; 74177; 80048; 80053; 81001; 83605; 83735; 84484; 85025; 85610; 86803; 86850; 86900; 86901; 87340; 93005; 96374; G0378; J2250; J2405; J2704

== ENCOUNTER → 2024-06-09 | Outpatient (CLI) | payer MEDICARE, MEDICAID ==
[~2024-06-09] MED LIST changes: +AMIT25TA20 PO; -AMIT50TA12 PO; +BUPR-346 PO; +CARI-578 PO; +CYCL-839 PO; +DICL75TA3 PO; +DOCU-94 PO; +FLUT0.05 NAS; -FURO20TA3 PO; +FURO40TA4 PO; +HYDR-4798 PO; +HYDR25TA4 PO; -ISOS1TAB28 PO; -LACT20PA4 PO; +MECL-90 PO; -MELO7.5T7 PO; -OMEG-20 PO; +OMEP20TA PO; -PANT40T PO; +POTA-36 PO; -SIMV20TA20 PO; +SIMV40TA18 PO
[2024-06-09 16:11] LABS: Chloride 104 mmol/L (98-107); Sodium 139 mmol/L (136-145)
[2024-06-09 16:12] LABS: Anion Gap 5 (5-15); Calcium 9.6 mg/dL (8.7-10.4); Carbon Dioxide 30 mmol/L (20-31)
[2024-06-09 16:13] LABS: Basophils # (auto) 0.1 10 ^3/uL (0-0.2); Mean Corpuscular Hgb Conc. 32.3 g/dL (32.0-36.0); Monocytes # (auto) 1.6 10 ^3/uL (0-1.3)
[2024-06-09 16:15] LABS: Urine Blood Negative /uL (Negative); Urine Clarity Turbid (Clear); Urine Color Light-Yellow (Yellow); Urine Protein, UAD 1+ (Negative); Urine Specific Gravity 1.022 (1.001-1.035); Urine Urobilinogen Normal (Negative); Urine pH 5.5 (5.0-9.0)
[2024-06-09 16:16] LABS: Basophils % (auto) 0.7 % (0.0-2.0); Eosinophils # (auto) 0.1 10 ^3/uL (0-0.8); Eosinophils % (auto) 1.1 % (0.0-7.0); Hematocrit 24.8 % (36.0-46.0); Lymphocytes % (auto) 22.7 % (10.0-50.0); Mean Corpuscular Hemoglobin 26.9 pg (28.0-32.0); Monocytes % (auto) 12.3 % (0.0-12.0); Neutrophils # (auto) 8.3 10 ^3/uL (1.6-8.6); Neutrophils % (auto) 63.2 % (37.0-80.0); Red Blood Cells 2.99 10^6/uL (4.0-5.20); Red Cell Distribution Width 17.3 % (11.8-14.3); White Blood Cell 13.1 10^3/uL (4.4-10.8)
[2024-06-09 16:17] LABS: BUN/Creatinine Ratio 25.5 (10.0-20.0); Glucose 96 mg/dL (74-106)
[2024-06-09 16:19] LABS: Blood Urea Nitrogen 35 mg/dL (9-23); Potassium 3.2 mmol/L (3.5-5.1)
[2024-06-09 16:25] LABS: Platelet Count (auto) 950 10^3/uL (140-450)
[2024-06-09 16:29] LABS: CRP High Sensitivity 15.08 mg/dL (<1.0)
[2024-06-09 16:43] LABS: Platelet Estimate Markedly Increased
[2024-06-09 17:05] LABS: Erythrocyte Sedimentation Rate 112 mm/hr (0-20)
== END | disposition home or self-care (01) ==
LOC: LAB 15:32
PROVIDERS: ATTEND Internal Medicine Cardiovascular Disease
DX: N39.0 Urinary tract infection, site not specified (principal); D64.9 Anemia, unspecified; Z96.651 Presence of right artificial knee joint
CPT/HCPCS: 36415; 80048; 81003; 85025; 85652; 86141

== ENCOUNTER 2024-06-19 13:31 | Inpatient (IN) | payer MEDICARE, MEDICAID ==
[~2024-06-19] VITALS: Ht 162.6 cm; Wt 67.0 kg
[~2024-06-19 13:31] MED LIST changes: +ALPR0.5T7 PO; +AMIT100T75 PO; +ATOR10TA PO; +DOCU-265 PO; +FAMO40TA7 PO; +FERR325T20 PO; +LISI40TA16 PO; +ONDA-180 PO; -PANC3600 OR; +PANC3600 PO; +PANT40TA57 PO; +SUCR1TAB PO; +[UNRECOGNIZED DRUG - CODE] PO
--- NOTE | 2024-06-19 14:12 | ED.PDOC ---
Musculoskeletal HPI Comments HPI: Poor Historian. 83-year-old female presents to the emergency department by ambulance from home for three months' history of right knee pain and swelling. Patient is status post knee replacement in the past however she fell three months ago and has been having constant pain in the right knee. She saw her PCP this past Saturday and patient state that the PCP Dr. Modi drained that the right knee because there was blood in the joint. She also went to see her orthopedic surgeon the following Saturday few days ago and he also drained her knee from blood. Patient states that the pain is constant 10/10 nonradiating worse with movement. She is unable to bear weight secondary to pain. Limited range of motion of the right knee secondary to pain. Denies any other associated symptoms. Patient states that she recently had an MRI done for this right knee by Dr. García. VITALS: Temp: 98.2 F RR: 18 02 sat : 98 % on room air HR: 77 BP: 168/71 PMH: heart failure, hypertension, GERD, osteoarthritis, hypothyroidism PSH: R knee surgery Social history: denies tobacco use, denies ETOH use, denies drug use Medications: Lasix, metoprolol, asa, nitroglycerin, Xanax, levothyroxine Allergies: denies REVIEW OF SYSTEMS: CONSTITUTIONAL: Denies acute: fever, diaphoresis, chills, generalized weakness. HEAD: Denies acute: headache, photophobia Eyes: Denies acute: Double vision, vision loss, eye pain, eye discharge. EARS: Denies acute: tinnitus, hearing loss, ear discharge, ear pain, THROAT: Denies acute: sore throat, swelling, difficulty swallowing , pain with swallowing, change in voice. NECK: Denies acute: neck pain, neck swelling, stiff neck. HEART: Denies acute : chest pain, palpitations, LUNGS: Denies acute: SOB, wheezing, cough, hemoptysis ABDOMEN: Denies acute: abdominal pain, Nausea, Vomiting, diarrhea, melena , hematemesis, hematochezia SKIN: Denies acute: rash, redness, lesions, itchiness. EXTREMITIES: Denies acute: calf pain, numbness, tingling, weakness, Denies acute: Low back pain. Neuro: Denies acute: focal neurological deficit, motor or sensory focal neurological deficit, tremors, seizure like activity, confusion, dizziness, change in mental status, loss of bowel or bladder function, cauda equina like symptoms. : Denies acute: dysuria, hematuria, flank pain, increase in urinary frequency. PSYCH: Denies acute: hallucination, suicidal ideation, homicidal ideation. FEMALE: Denies acute: abnormal vaginal bleeding, foul odor, unusual discharge. PHYSICAL EXAM: General: Moderate acute distress, awake and alert. Head: normocephalic, atraumatic. Neck: supple, trachea is midline, no swelling. Throat: Normal phonation. Eyes:, no erythema, no purulent discharge, no proptosis, no icterus. Heart: regular rate, regular rhythm, no significant murmur appreciated. Lungs: no apparent respiratory distress, Able to speak in full sentences. No wheezing, no rhonchi, no crackles. No stridors Clear to auscultation bilaterally. Abdomen: non tender to palpation, non distended, soft, no guarding, no rebound, + bowel sounds. Neuro: Awake, Alert, oriented to name, self, situation, follows commands GCS=15. Speech is normal. Skin: no petechia, no purpura, no cyanosis, non-pale, not jaundice. Lower extremities: --trace bilateral - Pitting edema no deformity, , no calf TTP. Evaluated of the right knee there is noted swelling and erythema and tenderness to palpation decreased range of motion. Patent is neurovascularly intact in the affected extremity. Pedal pulses palpable. Sensation and motor are present. Makes eye contact. moves all four extremities. Face: no apparent facial droop. Chief Complaint: Lower Extremity Time Seen by MD: 14:02 Primary Care Provider: ANISH Reviewed Notes: Nurses Notes, Crushed Stone Grader Notes, Allergies Allergies: Coded Allergies: NO KNOWN ALLERGIES (Unverified , 10/11/16) Home Meds Active Scripts Docusate Sodium (Colace) 100 Mg Cap, 1 CAP PO BID, #30 CAP Prov:INGRID LAU MD 02/29/24 Reported Medications Hydrocodone-Acetaminophen (Hydrocodone Bitartrate/AC 10-325 mg) 1 Tab Tab, 1 TAB PO BID, TAB 02/27/24 Docusate Sodium (Colace) 100 Mg Cap, 100 MG PO, CAP 02/27/24 Diclofenac Sodium (Topical) (Voltaren Arthritis Pain) 1 % Gel, 1 % EX, GEL 02/27/24 Furosemide (Furosemide) 40 Mg Tab, 40 MG PO DAILY for 30 Days 02/27/24 Fluticasone Propionate (Fluticasone Propionate) 0.05 % Cre, 50 MCG SITA DAILY for 30 Days, MCG 02/27/24 Cyclobenzaprine Hcl (Cyclobenzaprine Hcl) 10 Mg Tab, 10 MG PO BID, TAB 02/27/24 Potassium Chloride (POTASSIUM CHLORIDE CR) 10 Meq Tb, 8 MEQ PO DAILY, TAB 02/27/24 Hydrochlorothiazide (Hydrochlorothiazide) 25 Mg Tab, 25 MG PO DAILY for 30 Days, MG 02/27/24 Diclofenac Sodium (Diclofenac Sodium Dr) 75 Mg Tab, 75 MG PO BID, TAB 02/27/24 Omeprazole (Gnp Omeprazole) 20 Mg Tab, 20 MG PO BID, TAB 02/27/24 Bupropion Hcl (Bupropion Hcl) 100 Mg Tab, 100 MG PO Q8HR for 30 Days, MG 02/27/24 Meclizine Hcl (Meclizine Hcl) 25 Mg Tab, 25 MG PO TID PRN for DIZZINESS for 30 Days, MG 02/27/24 Simvastatin (Simvastatin) 40 Mg Tab, 40 MG PO QPM for 30 Days 02/27/24 Amitriptyline Hcl (Amitriptyline Hcl) 25 Mg Tab, 50 MG PO HS for 30 Days, MG 02/27/24 Carisoprodol (Carisoprodol) 350 Mg Tab, 350 MG PO QPM for 30 Days, MG 02/27/24 Tramadol Hcl (Tramadol Hcl) 50 Mg Tab, 50 MG PO BID, TAB 04/12/23 Pancrelipase (Lipase-Protease- (CREON) 36,000 Unt Cap, 62030 UNT OR TID, CAP 04/12/23 Alprazolam (Alprazolam) 0.25 Mg Tab, 0.25 MG PO BID PRN for ANXIETY, TAB 04/12/23 Ondansetron (Zofran) 4 Mg Tab, 1 TAB PO Q6HR, #20 TAB 04/24/19 Loratadine (Loratadine) 10 Mg Cap, 10 MG PO, CAP 04/24/19 Famotidine (Famotidine) 20 Mg Tab, 40 MG PO BID for 30 Days, MG 04/24/19 Cholecalciferol (VITAMIN D3) 2,000 Unit Tab, 1 TAB PO DAILY, #30 TAB 5 Refills 04/24/19 Lisinopril (Lisinopril) 20 Mg Tab, 20 MG PO DAILY, TAB 01/17/17 Metoprolol Succinate (Metoprolol Succinate Er) 25 Mg Tab, 25 MG PO DAILY, TAB 01/17/17 Levothyroxine Sodium (Levothyroxine Sodium) 75 Mcg Tab, 1 TAB PO DAILY, #30 TAB 5 Refills 12/24/16 Aspirin (Aspirin) 81 Mg Tab, 81 MG PO DAILY, TAB 12/24/16 Nitroglycerin (NTROSTAT SUBLINGUAL) 0.4 Mg Sl, 0.4 MG SL Q5MIN for FOR CHEST PAIN *MAY REPEAT EVERY 5 MINUTES X 3 TOTAL IF NO RELIEF, INITIATE ANALGESIC THERAPY. NOTIFY PHYSICIAN *Do not crush. 12/24/16 Information Source: Patient, Emergency Med Personnel Mode of Arrival: EMS Past Medical History PAST MEDICAL HISTORY: AFIB, Anemia, Anxiety, Arthritis, Cancer, CHF, Depression, High Lipids, HTN, Thyroid, UTI'S Surgical History: Appendectomy, Hysterectomy TRACK SERVICE PERSON History: No Pertinent TRACK SERVICE PERSON History Family History Family History: No family hx of Cancer, No family hx of Heart josé luis Social History Smoker: Non-Smoker, Quit Greater Than 1 Year Alcohol: Denies ETOH Use Drugs: Denies Drug Use Lives In: Home Was a procedure done? Was a procedure done?: No X-Ray, Labs, Meds, VS Vital Signs Date Time Temp Pulse Resp B/P (MAP) Pulse Ox O2 Delivery O2 Flow Rate FiO2 06/19/24 17:26 97.7 74 20 148/64 (92) 99 97.7 06/19/24 15:50 77 13 97 Room Air 06/19/24 15:50 98.4 77 13 124/72 (89) 97 98.4 06/19/24 13:58 98.2 77 18 168/71 (103) 98 Lab Test 06/19/24 15:20 Range/Units White Blood Count 12.1 H 4.4-10.8 10^3/uL Red Blood Count 3.10 L 4.0-5.20 10^6/uL Hemoglobin 7.8 L 12.2-16.2 g/dL Hematocrit 24.7 L 36.0-46.0 % Mean Corpuscular Volume 79.6 L 80.0-100.0 fL Mean Corpuscular Hemoglobin 25.1 L 28.0-32.0 pg Mean Corpuscular Hemoglobin Concent 31.5 L 32.0-36.0 g/dL Red Cell Distribution Width 17.8 H 11.8-14.3 % Platelet Count 901 *H 140-450 10^3/uL Mean Platelet Volume 5.4 L 6.9-10.8 fL Neutrophils (%) (Auto) 61.6 37.0-80.0 % Lymphocytes (%) (Auto) 25.5 10.0-50.0 % Monocytes (%) (Auto) 11.0 0.0-12.0 % Eosinophils (%) (Auto) 1.3 0.0-7.0 % Basophils (%) (Auto) 0.6 0.0-2.0 % Neutrophils # (Auto) 7.4 1.6-8.6 10 ^3/uL Lymphocytes # (Auto) 3.1 0.4-5.4 10 ^3/uL Monocytes # (Auto) 1.3 0-1.3 10 ^3/uL Eosinophils # (Auto) 0.2 0-0.8 10 ^3/uL Basophils # (Auto) 0.1 0-0.2 10 ^3/uL Nucleated Red Blood Cells 0.0 % Platelet Estimate Markedly increased Microcytosis Slight Erythrocyte Sedimentation Rate 108 H 0-20 mm/hr Prothrombin Time 11.5 9.3-11.8 sec Prothrombin Time INR 1.09 0.9-1.15 Activated Partial Thromboplast Time 30.2 24.5-34.5 SEC Sodium Level 140 136-145 mmol/L Potassium Level 3.1 L 3.5-5.1 mmol/L Chloride Level 105 98-107 mmol/L Carbon Dioxide Level 26 20-31 mmol/L Anion Gap 9 5-15 Blood Urea Nitrogen 44 H 9-23 mg/dL Creatinine 1.42 H 0.550-1.02 mg/dL Glomerular Filtration Rate Calc 36 >90 mL/min BUN/Creatinine Ratio 31.0 H 10.0-20.0 Serum Glucose 92 74-106 mg/dL Lactic Acid Level 0.7 0.4-2.0 mmol/L Calcium Level 9.9 8.7-10.4 mg/dL C-Reactive Protein High Sensitivity 17.58 H <1.0 mg/dL B-Type Natriuretic Peptide 382.66 0-100 pg/mL Current Medications Medications (Trade) Dose Ordered Sig/Irene Route Start Time Stop Time Status Last Admin Acetaminophen/ Hydrocodone Bitart ([place] 5/325MG Tab) 1 tab ONCE ONCE PO 06/19/24 16:30 06/19/24 16:31 DC 06/19/24 16:36 Potassium Chloride (Klor-Con Tablet) 40 meq ONCE ONCE PO 06/19/24 16:45 06/19/24 16:48 DC 06/19/24 17:22 Ceftriaxone Sodium 50 ml @ 100 mls/hr ONCE ONCE IV 06/19/24 16:45 06/19/24 17:14 DC 06/19/24 17:26 Vancomycin HCl 250 ml @ 250 mls/hr ONCE ONCE IV 06/19/24 17:00 06/19/24 17:59 DC 06/19/24 18:08 [place] [address] Ph: [phone] DIAGNOSTIC IMAGING Diagnostic Imaging Report : [id number] Signed PATIENT: CAROL TARANGO ACCT: [id number] UNIT: [id number] : 1940 LOC: ER ROOM / BED: / AGE / SEX: 83 / F ADM STATUS: REG ER SERVICE 44 ORDERING PHYSICIAN: NICKOLAS CARDENAS DO PROCEDURE(s): RKN3 - R KNEE 3V XRAY REASON: pain swelling ORDER NUMBER(s): [id number], ACCESSION NUMBER(s): [id number] CLINICAL INDICATION: pain swelling TECHNIQUE: 3 radiographic views of the right knee were obtained. 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 Osteoporotic changes and bone loss noted over the medial and lateral tibial plateaus beneath the prosthesis and increased radiolucency around the stem of the tibial prosthesis. Can not exclude infection. Joint effusion is noted. ATED BY: SAMMY JAUREGUI Jr. DO DICTATED DATE/TIME: 06/19/241620 SIGNED BY: SAMMY JAUREGUI Jr., DO SIGNED DATE/TIME: 06/19/241620 CC: [place] [address] Ph: [phone] DIAGNOSTIC IMAGING Diagnostic Imaging Report : [id number] Signed PATIENT: CAROL TARANGO ACCT: [id number] UNIT: [id number] : 1940 LOC: ER ROOM / BED: / AGE / SEX: 83 / F ADM STATUS: REG ER SERVICE 44 ORDERING PHYSICIAN: NICKOLAS CARDENAS DO PROCEDURE(s): RLDVT - RT Lower DVT REASON: pain swelling ORDER NUMBER(s): [id number], ACCESSION NUMBER(s): [id number] RIGHT LOWER EXTREMITY VENOUS DOPPLER CLINICAL HISTORY: pain swelling TECHNIQUE: Right lower extremity venous doppler study was performed. COMPARISON: None FINDINGS: The right common femoral, superficial femoral, popliteal, and posterior tibial veins appear patent with normal augmentation, phasicity, compressibility and color-flow. IMPRESSION: 1. No sonographic evidence of DVT in the right leg. HS:Y ATED BY: RUEL SCHILLING MD DICTATED DATE/TIME: 06/19/241524 SIGNED BY: RUEL SCHILLING MD SIGNED DATE/TIME: 06/19/241524 CC: Time of 1ST Reevaluation: 17:00 (The case was discussed with the orthopedic team (HPI, physical exam, labs and diagnostic tests that were available at the time of disposition, ED course, treatment plan) on the phone. They agree with our management. They said they will follow in consult. Dr. García who is familiar with this pt. he said pt will get an MRI.) Patient Education/Counseling: Diagnosis, Treatment, Prognosis Family Education/Counseling: No Family Present Comments MDM: Patient presented with the above HPI.----- R knee pain and swelling----- workup was initiated. patient was found with the above mentioned diagnosis. the following medications were ordered: vancomycin , Rocephin, potassium, [place], the following tests were ordered: creatinine, RBC morphology, R lower DVT study, R knee x-ray, BMP, PT PTT, lactic acid, ESR, CRP, CBC, BNP, Patient ED course and VS have been stabilized. Patient has been reassessed in the ED and remained in a stable condition. Patient has been observed in the ED adequate length of time to insure improvement/stability. Escalation of care considered: Consideration of escalation to observation or admission. patient was ADMITTED to the medicine team for further evaluation and treatment of their presentation. patient was DISCHARGED after further evaluation and treatment of their presentation. All the reports of any imaging studies that were ordered by myself were reviewed by myself. Departure 1 Departure Time of Disposition: 16:47 Impression: Primary Impression: Right knee pain Additional Impressions: Anemia Thrombocytosis Hypokalemia Leukocytosis Disposition: ADMITTED INPATIENT Admit to: Tele Condition: Guarded Discharged With: Self I personally scribed for NICKOLAS CARDENAS DO ([email or web address]) on 06/19/24 at 14:12. Electronically submitted by Aquiles Mccarthy ([email or web address]). I personally scribed for NICKOLAS CARDENAS DO ([email or web address]) on 06/19/24 at 17:06. Electronically submitted by Aquiles Mccarthy ([email or web address]). NICKOLAS CARDENAS DO Jun 19, 2024 14:12
--- NOTE | 2024-06-19 15:26 | DVH ---
RIGHT LOWER EXTREMITY VENOUS DOPPLER CLINICAL HISTORY: pain swelling TECHNIQUE: Right lower extremity venous doppler study was performed. COMPARISON: None FINDINGS: The right common femoral, superficial femoral, popliteal, and posterior tibial veins appear patent w ith normal augmentation, phasicity, compressibility and color-flow. IMPRESSION: 1. No sonographic evidence of DVT in the right leg. HS:Y
[2024-06-19 15:37] LABS: Basophils # (auto) 0.1 10 ^3/uL (0-0.2); Basophils % (auto) 0.6 % (0.0-2.0); Eosinophils # (auto) 0.2 10 ^3/uL (0-0.8); Hemoglobin 7.8 g/dL (12.2-16.2); Lymphocytes # (auto) 3.1 10 ^3/uL (0.4-5.4); Mean Corpuscular Volume 79.6 fL (80.0-100.0)
[2024-06-19 15:39] LABS: Eosinophils % (auto) 1.3 % (0.0-7.0); Hematocrit 24.7 % (36.0-46.0); Lymphocytes % (auto) 25.5 % (10.0-50.0); Mean Corpuscular Hemoglobin 25.1 pg (28.0-32.0); Mean Corpuscular Hgb Conc. 31.5 g/dL (32.0-36.0); Monocytes # (auto) 1.3 10 ^3/uL (0-1.3); Neutrophils # (auto) 7.4 10 ^3/uL (1.6-8.6); Neutrophils % (auto) 61.6 % (37.0-80.0); Red Cell Distribution Width 17.8 % (11.8-14.3); White Blood Cell 12.1 10^3/uL (4.4-10.8)
[2024-06-19 15:46] LABS: Platelet Count (auto) 901 10^3/uL (140-450)
[2024-06-19 15:47] LABS: Chloride 105 mmol/L (98-107); Sodium 140 mmol/L (136-145)
[2024-06-19 15:48] LABS: Anion Gap 9 (5-15); Calcium 9.9 mg/dL (8.7-10.4); Carbon Dioxide 26 mmol/L (20-31)
[2024-06-19 15:53] LABS: Glucose 92 mg/dL (74-106)
[2024-06-19 16:08] LABS: Blood Urea Nitrogen 44 mg/dL (9-23); CRP High Sensitivity 17.58 mg/dL (<1.0); INR 1.09 (0.9-1.15); Partial Thromboplastin Time 30.2 SEC (24.5-34.5); Potassium 3.1 mmol/L (3.5-5.1); Prothrombin Time 11.5 sec (9.3-11.8)
[2024-06-19 16:11] LABS: Platelet Estimate Markedly Increased
--- NOTE | 2024-06-19 16:23 | DVH ---
CLINICAL INDICATION: pain swelling TECHNIQUE: 3 radiographic views of the right knee were obtained. 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 Osteoporotic changes and bone loss noted over the medial and lateral tibial plateaus beneath the pros thesis and increased radiolucency around the stem of the tibial prosthesis. Can not exclude infection . Joint effusion is noted.
[2024-06-19 16:31] LABS: Erythrocyte Sedimentation Rate 108 mm/hr (0-20)
[2024-06-19] MEDS: HYDROcodone-ACET 5/325MG TAB PO ONE (16:36)
[2024-06-19] MEDS ORDERED: VANCOMYCIN PER PHARMACY 0 MG IV SCH (16:45)
[2024-06-19] MEDS: POTASSIUM CHL 20 Meq TABLET PO ONE (17:22)
[2024-06-19] MEDS: cefTRIAXone 1GM/50ML D5W 50 ML IV ONE (17:26)
[2024-06-19] MEDS: VANCOMYCIN 1GM/250ML KIT 250 ML IV ONE (18:08)
[2024-06-19] MEDS: ONDANSETRON HCL 4 MG/2 ML VIAL IV ONE (19:48)
[2024-06-19] MEDS: MORPHINE SULFATE 4 MG/ML SYR/VIAL IV ONE (19:49)
[2024-06-19 20:00] VITALS: PULSE 80; RESP 15; O2SAT 96
--- NOTE | 2024-06-19 21:00 | DVHHP2 ---
History of Present Illness Reason for Visit: Knee pain History of Present Illness 83-year-old female presents for evaluation of knee pain. Patient reports having a fall three months ago where she landed on her right knee. She states since then she has been having intermittent swelling. She reports having her right knee drained multiple occasions as well. She has been trying to see her orthopedic surgeon without success. She presents for further evaluation. Denies fever or chills. Past Medical History Hypertension, GERD osteoarthritis, hypothyroidism, heart failure Past Surgical History Knee surgery Family History Noncontributory Smoke: No ALCOHOL: none Drugs: None Lives: with Family Review of Systems Review of Systems Review of systems are currently negative otherwise addressed in HPI. Allergies: Coded Allergies: NO KNOWN ALLERGIES (Unverified , 10/11/16) Medications Current Medications Medications Dose Ordered Sig/Irene Route Start Time Stop Time Status Last Admin Dose Admin Vancomycin HCl 0 ml @ 0 mls/hr UD IV 06/19/24 16:45 Ceftriaxone Sodium 50 ml @ 100 mls/hr DAILY@09 IV 06/20/24 09:00 Metoprolol Succinate 25 mg DAILY PO 06/20/24 10:00 Furosemide 40 mg DAILY PO 06/20/24 10:00 Hydrochlorothiazide 25 mg DAILY PO 06/20/24 10:00 Levothyroxine Sodium 75 mcg QAM@0600 PO 06/20/24 06:00 Lisinopril 20 mg DAILY PO 06/20/24 10:00 Acetaminophen/ Hydrocodone Bitart 1 tab Q4HP PRN PO 06/19/24 18:45 Acetaminophen 650 mg Q6HP PRN PO 06/19/24 18:45 Morphine Sulfate 2 mg Q6HPRN PRN IV 06/19/24 18:45 Exam Vital Signs Vital Signs Date Time Temp Pulse Resp B/P (MAP) Pulse Ox O2 Delivery O2 Flow Rate FiO2 06/19/24 19:49 78 19 145/62 06/19/24 19:08 98.7 95 98.7 06/19/24 15:50 Room Air Exam Gen: 83-year-old female in mild distress Skin: Warm, dry, normal color and texture, no rash. HEENT: Normocephalic atraumatic, mucous membranes moist and pink. Neck: Cervical and supraclavicular nodes normal without enlargement, trachea is midline, thyroid gland is normal without masses. Pulmonary: Clear to auscultation and percussion bilaterally. Cardiac: Regular rate and rhythm. No murmur Abdomen: Soft, nontender, nondistended, bowel sounds present all 4 quadrants, no guarding, no rigidity, no organomegaly. Extremities: No cyanosis, clubbing, right knee swelling Neuro: Cranial nerves II through XII grossly intact, normal affect and speech, no focal motor deficits. Labs/Xrays ORDERING PHYSICIAN: NICKOLAS CARDENAS DO PROCEDURE(s): RLDVT - RT Lower DVT REASON: pain swelling ORDER NUMBER(s): [id number], ACCESSION NUMBER(s): [id number] RIGHT LOWER EXTREMITY VENOUS DOPPLER CLINICAL HISTORY: pain swelling TECHNIQUE: Right lower extremity venous doppler study was performed. COMPARISON: None FINDINGS: The right common femoral, superficial femoral, popliteal, and posterior tibial veins appear patent with normal augmentation, phasicity, compressibility and color-flow. IMPRESSION: 1. No sonographic evidence of DVT in the right leg. HS:Y RING PHYSICIAN: NICKOLAS CARDENAS DO PROCEDURE(s): RKN3 - R KNEE 3V XRAY REASON: pain swelling ORDER NUMBER(s): [id number], ACCESSION NUMBER(s): [id number] CLINICAL INDICATION: pain swelling TECHNIQUE: 3 radiographic views of the right knee were obtained. 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 Osteoporotic changes and bone loss noted over the medial and lateral tibial plateaus beneath the prosthesis and increased radiolucency around the stem of the tibial prosthesis. Can not exclude infection. Joint effusion is noted. Labs Test 06/19/24 15:20 Range/Units White Blood Count 12.1 H 4.4-10.8 10^3/uL Red Blood Count 3.10 L 4.0-5.20 10^6/uL Hemoglobin 7.8 L 12.2-16.2 g/dL Hematocrit 24.7 L 36.0-46.0 % Mean Corpuscular Volume 79.6 L 80.0-100.0 fL Mean Corpuscular Hemoglobin 25.1 L 28.0-32.0 pg Mean Corpuscular Hemoglobin Concent 31.5 L 32.0-36.0 g/dL Red Cell Distribution Width 17.8 H 11.8-14.3 % Platelet Count 901 *H 140-450 10^3/uL Mean Platelet Volume 5.4 L 6.9-10.8 fL Neutrophils (%) (Auto) 61.6 37.0-80.0 % Lymphocytes (%) (Auto) 25.5 10.0-50.0 % Monocytes (%) (Auto) 11.0 0.0-12.0 % Eosinophils (%) (Auto) 1.3 0.0-7.0 % Basophils (%) (Auto) 0.6 0.0-2.0 % Neutrophils # (Auto) 7.4 1.6-8.6 10 ^3/uL Lymphocytes # (Auto) 3.1 0.4-5.4 10 ^3/uL Monocytes # (Auto) 1.3 0-1.3 10 ^3/uL Eosinophils # (Auto) 0.2 0-0.8 10 ^3/uL Basophils # (Auto) 0.1 0-0.2 10 ^3/uL Nucleated Red Blood Cells 0.0 % Platelet Estimate Markedly increased Microcytosis Slight Erythrocyte Sedimentation Rate 108 H 0-20 mm/hr Prothrombin Time 11.5 9.3-11.8 sec Prothrombin Time INR 1.09 0.9-1.15 Activated Partial Thromboplast Time 30.2 24.5-34.5 SEC Sodium Level 140 136-145 mmol/L Potassium Level 3.1 L 3.5-5.1 mmol/L Chloride Level 105 98-107 mmol/L Carbon Dioxide Level 26 20-31 mmol/L Anion Gap 9 5-15 Blood Urea Nitrogen 44 H 9-23 mg/dL Creatinine 1.42 H 0.550-1.02 mg/dL Glomerular Filtration Rate Calc 36 >90 mL/min BUN/Creatinine Ratio 31.0 H 10.0-20.0 Serum Glucose 92 74-106 mg/dL Lactic Acid Level 0.7 0.4-2.0 mmol/L Calcium Level 9.9 8.7-10.4 mg/dL C-Reactive Protein High Sensitivity 17.58 H <1.0 mg/dL B-Type Natriuretic Peptide 382.66 0-100 pg/mL Assessment/Plan Assessment/Plan Assessment Right knee effusion Thrombocytosis Chronic kidney disease Hypertension Plan Admit the patient to [facility] surge to the hospitalist Orthopedic consultation Rocephin/vancomycin Resume home medications Continue treatment per orders. Plan discussed with: Patient My Orders Orders - ALDO AGOSTO Procedure Category Date Status Time Ceftriaxone 1gm/50ml PHA 06/20/24 In Process D5w (Rocephin) 09:00 * Orthopedic Consult CONS 06/19/24 Transmitted 18:40 Metoprolol Xl PHA 06/20/24 In Process Succinate (Toprol Xl) 10:00 Furosemide Tablet PHA 06/20/24 In Process (Lasix Tablet) 10:00 Hydrochlorothiazide PHA 06/20/24 In Process Tablet (Hydrochlorot 10:00 Levothyroxine Tablet PHA 06/20/24 In Process (Synthroid Tablet) 06:00 Lisinopril Tablet PHA 06/20/24 In Process (Zestril Tablet) 10:00 Blood Culture BLAKE 06/19/24 In Process 18:40 Basic Metabolic Panel LAB 06/20/24 Verified 04:00 Admit ADMIT 06/19/24 Transmitted 18:40 Hydrocodone-Acet PHA 06/19/24 In Process 5/325mg Tab ([place] 18:45 Cardiac DIET 06/20/24 Transmitted Diet-2gna,Lofat,Lochol Breakfast Condition: Stable ROSSI 06/19/24 In Process 18:40 Acetaminophen Tablet PHA 06/19/24 In Process (Tylenol Tablet) 18:45 Morphine Sulfate PHA 06/19/24 In Process Injection 18:45 Date of Service: Jun 19, 2024 Billing Provider: ALDO AGOSTO Common Visit Codes: [id number] INP/OBS CARE (MOD) ALDO AGOSTO Jun 19, 2024 21:00
[2024-06-20] VITALS (7 sets, daily range): BP systolic 118–161; BP diastolic 53–80; PULSE 75–89; RESP 16–18; TEMP 97.9–98.9; O2SAT 90–99
[2024-06-20] MEDS: MORPHINE SULFATE INJ 2 MG/ml SYRG IV PRN (00:42)
[2024-06-20] MEDS: LEVOTHYROXINE SODIUM 25 MCG TAB PO SCH (06:16)
[2024-06-20 07:47] LABS: Chloride 104 mmol/L (98-107); Sodium 140 mmol/L (136-145)
[2024-06-20 07:48] LABS: Anion Gap 7 (5-15); Calcium 9.6 mg/dL (8.7-10.4); Carbon Dioxide 29 mmol/L (20-31)
[2024-06-20 07:53] LABS: BUN/Creatinine Ratio 25.8 (10.0-20.0); Glucose 96 mg/dL (74-106)
[2024-06-20 08:05] LABS: Blood Urea Nitrogen 33 mg/dL (9-23); Potassium 3.3 mmol/L (3.5-5.1)
[2024-06-20] MEDS: LISINOPRIL 20 MG TAB PO SCH (08:55)
[2024-06-20] MEDS: METOPROLOL SUCCINATE XL 50 MG TAB PO SCH (08:55)
[2024-06-20] MEDS: FUROSEMIDE 40 MG TAB PO SCH (08:56)
[2024-06-20] MEDS: hydroCHLOROthiazide 25 MG TAB PO SCH (08:56)
[2024-06-20] MEDS: cefTRIAXone 1GM/50ML D5W 50 ML IV SCH (09:32)
[2024-06-20] MEDS: VANCOMYCIN 500mg/100mL 100 ML IV SCH (14:34)
--- NOTE | 2024-06-20 17:41 | DVHPN2 ---
Subjective c/o pain in rt knee since fall in 02/21. 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 had knee replacement 2022 and was doing well still recent fall Changes from previous H/P or p: No Changes Objective Vitals Vital Signs Date Time Temp Pulse Resp B/P (MAP) Pulse Ox O2 Delivery O2 Flow Rate FiO2 06/20/24 16:03 70 18 140/70 06/20/24 13:00 97.9 99 97.9 06/20/24 08:00 Nasal Cannula* 2 28 Intake/Output Intake and Output 06/20/24 07:00 Intake Total 240 ml Output Total 1950 ml Balance -1710 ml Intake Oral 240 ml Output Urine Total 1950 ml General Appearance: Alert, Oriented X3, Cooperative, mild distress Lungs: Clear to auscultation Cardiovascular: Regular rate, Normal S1, Normal S2 Abdomen: Normal bowel sounds, Soft, No tenderness Musculoskeletal: Other (rt knee significan suprapatellar effusion/ and also fluid below knee) Extremities: No edema Neuro: Normal gait, Normal speech, Strength at 5/5 X4 ext, Sensation intact, C ranial nerves 3-12 NL, Reflexes 2+ Skin: Intact Psych/Mental Status: Mental status NL Medications Current Medications Medications Dose Ordered Sig/Irene Route Start Time Stop Time Status Last Admin Dose Admin Vancomycin HCl 0 ml @ 0 mls/hr UD IV 06/19/24 16:45 Ceftriaxone Sodium 50 ml @ 100 mls/hr DAILY@09 IV 06/20/24 09:00 06/20/24 09:32 100 MLS/HR Metoprolol Succinate 25 mg DAILY PO 06/20/24 10:00 06/20/24 08:55 25 MG Furosemide 40 mg DAILY PO 06/20/24 10:00 06/20/24 08:56 40 MG Hydrochlorothiazide 25 mg DAILY PO 06/20/24 10:00 06/20/24 08:56 25 MG Levothyroxine Sodium 75 mcg QAM@0600 PO 06/20/24 06:00 06/20/24 06:16 75 MCG Lisinopril 20 mg DAILY PO 06/20/24 10:00 06/20/24 08:55 20 MG Acetaminophen/ Hydrocodone Bitart 1 tab Q4HP PRN PO 06/19/24 18:45 Acetaminophen 650 mg Q6HP PRN PO 06/19/24 18:45 Morphine Sulfate 2 mg Q6HPRN PRN IV 06/19/24 18:45 06/20/24 16:03 2 MG Vancomycin HCl 100 ml @ 200 mls/hr Q24H IV 06/20/24 14:00 06/20/24 14:34 200 MLS/HR Laboratory Results Laboratory Tests 06/19/24 15:20 06/20/24 06:51 Chemistry Test 06/20/24 06:51 Calcium Level 9.6 mg/dL (8.7-10.4) Labs and/or images reviewed: Labs reviewed by me, Image(s) reviewed by me Assessment/Plan Assessment/Plan rt knee reccurrent effusion/hematoma- states not on blood thinners consult ortho- empiric antibiotics secondary thrombocytosis from inflammation knee htn stable hypothyroidism stable Plan discussed with: Patient, Other My Orders Orders - KATTY SANTO MD Procedure Category Date Status Time Potassium Er Tablet PHA 06/20/24 Logged (Klor-Con Tablet) 17:30 Date of Service: Jun 20, 2024 Billing Provider: KATTY SANTO MD Common Visit Codes: [id number] INP/OBS CARE(MOD) KATTY SANTO MD Jun 20, 2024 17:41
[2024-06-20] MEDS: POTASSIUM CHLORIDE 8 MEQ TAB PO ONE (18:14)
[2024-06-21] VITALS (8 sets, daily range): BP systolic 126–154; BP diastolic 56–74; PULSE 74–84; RESP 16–18; TEMP 97.8–99.8; O2SAT 90–98
[2024-06-21] MEDS: HYDROcodone-ACET 5/325MG TAB PO PRN (04:41)
[2024-06-21 05:43] LABS: Basophils # (auto) 0 10 ^3/uL (0-0.2); Basophils % (auto) 0.3 % (0.0-2.0); Lymphocytes # (auto) 3.3 10 ^3/uL (0.4-5.4); Monocytes # (auto) 1.4 10 ^3/uL (0-1.3); Nucleated Red Blood Cells % 0.1 %
[2024-06-21 05:46] LABS: Eosinophils # (auto) 0.2 10 ^3/uL (0-0.8); Eosinophils % (auto) 1.2 % (0.0-7.0); Hematocrit 24.9 % (36.0-46.0); Hemoglobin 8.2 g/dL (12.2-16.2); Lymphocytes % (auto) 24.4 % (10.0-50.0); Mean Corpuscular Hemoglobin 25.8 pg (28.0-32.0); Mean Corpuscular Hgb Conc. 32.9 g/dL (32.0-36.0); Mean Corpuscular Volume 78.5 fL (80.0-100.0); Monocytes % (auto) 10.2 % (0.0-12.0); Neutrophils # (auto) 8.6 10 ^3/uL (1.6-8.6); Neutrophils % (auto) 63.9 % (37.0-80.0); Red Blood Cells 3.18 10^6/uL (4.0-5.20); Red Cell Distribution Width 17.6 % (11.8-14.3); White Blood Cell 13.4 10^3/uL (4.4-10.8)
[2024-06-21 05:58] LABS: Platelet Count (auto) 955 10^3/uL (140-450)
[2024-06-21 05:59] LABS: Anion Gap 8 (5-15)
[2024-06-21 06:05] LABS: BUN/Creatinine Ratio 22.5 (10.0-20.0)
[2024-06-21 06:06] LABS: Blood Urea Nitrogen 27 mg/dL (9-23); Carbon Dioxide 31 mmol/L (20-31); Chloride 97 mmol/L (98-107); Glucose 108 mg/dL (74-106); Potassium 2.9 mmol/L (3.5-5.1); Sodium 136 mmol/L (136-145)
[2024-06-21 06:22] LABS: CRP High Sensitivity 14.18 mg/dL (<1.0)
[2024-06-21] MEDS: POTASSIUM CHL 20 Meq TABLET PO ONE (08:49)
--- NOTE | 2024-06-21 17:06 | DVHINCON2 ---
VA RAMEY 06/21/24 1706: Date of service: Jun 21, 2024 Reason for Consultation Right knee swelling and pain History of Present Illness Mrs. Louise is an 83-year-old female who has been experiencing progressively worsening right knee pain and swelling that occurred approximately three months ago when she fell and landed onto her right knee and originally developed swelling and mild pain that progressively worsened prompting her to have her knee drained by her primary care physician once as well as her orthopedic surgeon Dr. Farrar once in clinic as well but reported that the swelling never resolved and given that it continued and is affecting her ambulation due to the pain decided to come into the hospital for an evaluation. Patient notes that she had a total knee replacement with Dr. Farrar approximately a year ago and was doing well up until her fall approximately three months ago. Patient is otherwise feeling well denying any other complaint or concern during my evaluation. Past Medical History Hypertension, GERD, osteoarthritis, hypothyroidism, CHF Past Surgical History Right total knee arthroplasty Family History: Cancer G8 MOTHER UNCLE (LUNG CA) UNCLE (LEUKEMIA BRAIN CA) Family history: Cardiovascular disease G8 FATHER BROTHER Family history: Hypertension G8 FATHER AUNT BROTHER Ischemic heart disease G8 FATHER Psychiatric condition AUNT Family History Noncontributory Social History Patient denies smoking, EtOH, or illicit substance abuse Allergies: Coded Allergies: NO KNOWN ALLERGIES (Unverified , 10/11/16) Home Meds Reported Medications Lisinopril (Lisinopril) 40 Mg Tab, 1 TAB PO DAILY for 90 Days, #90 06/23/24 Amitriptyline HCl (Amitriptyline Hydrochlori) 100 Mg Tab, 1 TAB PO DAILY for 70 Days, #70 06/23/24 Sucralfate (Sucralfate) 1 Gm Tab, 1 TAB PO BID for 30 Days, #60 24 Ferrous Sulfate (Ferosul) 325 Mg Tab, 1 TAB PO BID for 30 Days, #60 24 Pantoprazole Sodium Sesquihydr (Pantoprazole Sodium Dr) 40 Mg Tab, 1 TAB PO BID for 90 Days, #180 06/23/24 Docusate Sodium (Docusate Sodium) 100 Mg Cap, 1 CAP PO BID for 30 Days, #60 24 Atorvastatin Calcium (Lipitor) 10 Mg Tab, 1 TAB PO DAILY for 90 Days, #90 06/23/24 Alprazolam (Alprazolam) 0.5 Mg Tab, 1 TAB PO BID for 30 Days, #60 06/23/24 Ondansetron HCl (Ondansetron Hydrochloride) 8 Mg Tab, 1 TAB PO BID PRN for NAUSEA / VOMITING for 30 Days, #60 06/23/24 Famotidine (Famotidine) 40 Mg Tab, 1 TAB PO BID for 90 Days, #180 06/23/24 Cholecalciferol (Gnp Vitamin D) 1,000 Unit Tab, 1 TAB PO DAILY for 90 Days, #90 06/23/24 Hydrocodone-Acetaminophen (Hydrocodone Bitartrate/AC 10-325 mg) 1 Tab Tab, 1 TAB PO BID, TAB 02/27/24 Diclofenac Sodium (Topical) (Voltaren Arthritis Pain) 1 % Gel, 1 % EX, GEL 02/27/24 Furosemide (Furosemide) 40 Mg Tab, 1 TAB PO BID for 90 Days, #180 02/27/24 Fluticasone Propionate (Fluticasone Propionate) 0.05 % Cre, 50 MCG SITA DAILY for 30 Days, MCG 02/27/24 Cyclobenzaprine Hcl (Cyclobenzaprine Hcl) 10 Mg Tab, 1 TAB PO BID for 30 Days, #60 02/27/24 Potassium Chloride (POTASSIUM CHLORIDE CR) 10 Meq Tb, 8 MEQ PO DAILY, TAB 02/27/24 Hydrochlorothiazide (Hydrochlorothiazide) 25 Mg Tab, 25 MG PO DAILY for 30 Days, MG 02/27/24 Diclofenac Sodium (Diclofenac Sodium Dr) 75 Mg Tab, 75 MG PO BID, TAB 02/27/24 Bupropion Hcl (Bupropion Hcl) 100 Mg Tab, 100 MG PO Q8HR for 30 Days, MG 02/27/24 Meclizine Hcl (Meclizine Hcl) 25 Mg Tab, 25 MG PO TID PRN for DIZZINESS for 30 Days, MG 02/27/24 Simvastatin (Simvastatin) 40 Mg Tab, 40 MG PO QPM for 30 Days 02/27/24 Carisoprodol (Carisoprodol) 350 Mg Tab, 350 MG PO QPM for 30 Days, MG 02/27/24 Tramadol Hcl (Tramadol Hcl) 50 Mg Tab, 50 MG PO BID, TAB 04/12/23 Pancrelipase (Lipase-Protease- (CREON) 36,000 Unt Cap, 1 CAP PO TID for 30 Days, #270 04/12/23 Loratadine (Loratadine) 10 Mg Cap, 10 MG PO, CAP 04/24/19 Metoprolol Succinate (Metoprolol Succinate Er) 25 Mg Tab, 25 MG PO DAILY, TAB 01/17/17 Levothyroxine Sodium (Levothyroxine Sodium) 75 Mcg Tab, 1 TAB PO DAILY for 90 Days, #90 12/24/16 Aspirin (Aspirin) 81 Mg Tab, 1 TAB PO DAILY for 90 Days, #90 12/24/16 Nitroglycerin (NTROSTAT SUBLINGUAL) 0.4 Mg Sl, 0.4 MG SL Q5MIN for FOR CHEST PAIN *MAY REPEAT EVERY 5 MINUTES X 3 TOTAL IF NO RELIEF, INITIATE ANALGESIC THERAPY. NOTIFY PHYSICIAN *Do not crush. 12/24/16 Discontinued Reported Medications Alprazolam (Alprazolam) 0.25 Mg Tab, 0.25 MG PO BID PRN for ANXIETY, TAB 04/12/23 Ondansetron (Zofran) 4 Mg Tab, 1 TAB PO Q6HR, #20 TAB 04/24/19 Famotidine (Famotidine) 20 Mg Tab, 40 MG PO BID for 30 Days, MG 04/24/19 Cholecalciferol (VITAMIN D3) 2,000 Unit Tab, 1 TAB PO DAILY, #30 TAB 5 Refills 04/24/19 Review of Systems 10 point review of systems negative except as per HPI Vital Signs Vital Signs Date Time Temp Pulse Resp B/P (MAP) Pulse Ox O2 Delivery O2 Flow Rate FiO2 06/21/24 15:29 74 18 136/76 06/21/24 13:00 98.2 92 98.2 06/21/24 08:00 Nasal Cannula* 2 28 Physical Exam General appearance: A&O x4 in no acute distress HEENT: Normal ENT inspection, pharynx normal, TMs normal Neck: Full range of motion, nontender, normal inspection Respiratory: Chest nontender, without accessory muscle use, no respiratory distress Cardiovascular: No edema, no JVD, normal peripheral pulses Gastrointestinal: Soft, nontender, no organomegaly. Musculoskeletal: Right knee range of motion grossly limited with pain on slight movement, approximately 4 cm hematoma noted superiorly to the patella, generalized edema, calf tender to palpation, normal capillary refill, neur ovascularly intact. Skin: Dry, normal color, warm Lymphatic: No adenopathy Labs/Diagnostic Data Labs Test 06/21/24 04:49 06/20/24 06:51 06/19/24 15:20 Range/Units White Blood Count 13.4 H 4.4-10.8 10^3/uL Red Blood Count 3.18 L 4.0-5.20 10^6/uL Hemoglobin 8.2 L 12.2-16.2 g/dL Hematocrit 24.9 L 36.0-46.0 % Mean Corpuscular Volume 78.5 L 80.0-100.0 fL Mean Corpuscular Hemoglobin 25.8 L 28.0-32.0 pg Mean Corpuscular Hemoglobin Concent 32.9 32.0-36.0 g/dL Red Cell Distribution Width 17.6 H 11.8-14.3 % Platelet Count 955 *H 140-450 10^3/uL Mean Platelet Volume 5.5 L 6.9-10.8 fL Neutrophils (%) (Auto) 63.9 37.0-80.0 % Lymphocytes (%) (Auto) 24.4 10.0-50.0 % Monocytes (%) (Auto) 10.2 0.0-12.0 % Eosinophils (%) (Auto) 1.2 0.0-7.0 % Basophils (%) (Auto) 0.3 0.0-2.0 % Neutrophils # (Auto) 8.6 1.6-8.6 10 ^3/uL Lymphocytes # (Auto) 3.3 0.4-5.4 10 ^3/uL Monocytes # (Auto) 1.4 H 0-1.3 10 ^3/uL Eosinophils # (Auto) 0.2 0-0.8 10 ^3/uL Basophils # (Auto) 0 0-0.2 10 ^3/uL Nucleated Red Blood Cells 0.1 % Sodium Level 136 136-145 mmol/L Potassium Level 2.9 L 3.5-5.1 mmol/L Chloride Level 97 L 98-107 mmol/L Carbon Dioxide Level 31 20-31 mmol/L Anion Gap 8 5-15 Blood Urea Nitrogen 27 H 9-23 mg/dL Creatinine 1.20 H 0.550-1.02 mg/dL Glomerular Filtration Rate Calc 44 >90 mL/min BUN/Creatinine Ratio 22.5 H 10.0-20.0 Serum Glucose 108 H 74-106 mg/dL Calcium Level 10.0 8.7-10.4 mg/dL Iron Level 25 L 50-170 ug/dL C-Reactive Protein High Sensitivity 14.18 H <1.0 mg/dL Random Vancomycin Level 10.4 H 5-10 ug/mL Platelet Estimate Markedly increased Microcytosis Slight Erythrocyte Sedimentation Rate 108 H 0-20 mm/hr Prothrombin Time 11.5 9.3-11.8 sec Prothrombin Time INR 1.09 0.9-1.15 Activated Partial Thromboplast Time 30.2 24.5-34.5 SEC Lactic Acid Level 0.7 0.4-2.0 mmol/L B-Type Natriuretic Peptide 382.66 0-100 pg/mL Microbiology Date/Time Source Procedure Growth Status 06/19/24 19:44 Blood Blood Culture - Preliminary NO GROWTH AFTER 24 HOURS OF INCUBATION. Resulted Right lower extremity venous Doppler ultrasound reviewed and demonstrated: No sonographic evidence of DVT in the right leg. Right knee x-ray reviewed and demonstrated: Right total knee prosthesis in place. Osteoporotic changes and bone loss noted over the medial and lateral tibial plateaus beneath the prosthesis and increased radiolucency around the stem of the tibial prosthesis. Can not exclude infection. Joint effusion is noted. Assessment Right knee pain and swelling S/P right knee replacement Plan/Recommendation I had a lengthy discussion with the patient and after discussing her case and reviewing her imaging studies with Dr. Clifton we have recommended continuing observation at this time while pending right knee aspiration and fluid analysis for further evaluation for any potential infection. We will reconvene with the patient once the aspiration has been completed to discuss results and determine the next course of action. She understood and agreed. Thank you for allowing us to participate in the care of your patient. Plan discussed with: Patient HERBERT FARRAR MD 06/24/24 0651: Date of service: Jun 23, 2024 Family History: Cancer G8 MOTHER UNCLE (LUNG CA) UNCLE (LEUKEMIA BRAIN CA) Family history: Cardiovascular disease G8 FATHER BROTHER Family history: Hypertension G8 FATHER AUNT BROTHER Ischemic heart disease G8 FATHER Psychiatric condition AUNT Allergies: Coded Allergies: NO KNOWN ALLERGIES (Unverified , 10/11/16) Home Meds Reported Medications Lisinopril (Lisinopril) 40 Mg Tab, 1 TAB PO DAILY for 90 Days, #90 06/23/24 Amitriptyline HCl (Amitriptyline Hydrochlori) 100 Mg Tab, 1 TAB PO DAILY for 70 Days, #70 06/23/24 Sucralfate (Sucralfate) 1 Gm Tab, 1 TAB PO BID for 30 Days, #60 24 Ferrous Sulfate (Ferosul) 325 Mg Tab, 1 TAB PO BID for 30 Days, #60 24 Pantoprazole Sodium Sesquihydr (Pantoprazole Sodium Dr) 40 Mg Tab, 1 TAB PO BID for 90 Days, #180 06/23/24 Docusate Sodium (Docusate Sodium) 100 Mg Cap, 1 CAP PO BID for 30 Days, #60 24 Atorvastatin Calcium (Lipitor) 10 Mg Tab, 1 TAB PO DAILY for 90 Days, #90 24 Alprazolam (Alprazolam) 0.5 Mg Tab, 1 TAB PO BID for 30 Days, #60 06/23/24 Ondansetron HCl (Ondansetron Hydrochloride) 8 Mg Tab, 1 TAB PO BID PRN for NAUSEA / VOMITING for 30 Days, #60 06/23/24 Famotidine (Famotidine) 40 Mg Tab, 1 TAB PO BID for 90 Days, #180 24 Cholecalciferol (Gnp Vitamin D) 1,000 Unit Tab, 1 TAB PO DAILY for 90 Days, #90 06/23/24 Hydrocodone-Acetaminophen (Hydrocodone Bitartrate/AC 10-325 mg) 1 Tab Tab, 1 TAB PO BID, TAB 02/27/24 Diclofenac Sodium (Topical) (Voltaren Arthritis Pain) 1 % Gel, 1 % EX, GEL 02/27/24 Furosemide (Furosemide) 40 Mg Tab, 1 TAB PO BID for 90 Days, #180 02/27/24 Fluticasone Propionate (Fluticasone Propionate) 0.05 % Cre, 50 MCG SITA DAILY for 30 Days, MCG 02/27/24 Cyclobenzaprine Hcl (Cyclobenzaprine Hcl) 10 Mg Tab, 1 TAB PO BID for 30 Days, #60 02/27/24 Potassium Chloride (POTASSIUM CHLORIDE CR) 10 Meq Tb, 8 MEQ PO DAILY, TAB 02/27/24 Hydrochlorothiazide (Hydrochlorothiazide) 25 Mg Tab, 25 MG PO DAILY for 30 Days, MG 02/27/24 Diclofenac Sodium (Diclofenac Sodium Dr) 75 Mg Tab, 75 MG PO BID, TAB 02/27/24 Bupropion Hcl (Bupropion Hcl) 100 Mg Tab, 100 MG PO Q8HR for 30 Days, MG 02/27/24 Meclizine Hcl (Meclizine Hcl) 25 Mg Tab, 25 MG PO TID PRN for DIZZINESS for 30 Days, MG 02/27/24 Simvastatin (Simvastatin) 40 Mg Tab, 40 MG PO QPM for 30 Days 02/27/24 Carisoprodol (Carisoprodol) 350 Mg Tab, 350 MG PO QPM for 30 Days, MG 02/27/24 Tramadol Hcl (Tramadol Hcl) 50 Mg Tab, 50 MG PO BID, TAB 04/12/23 Pancrelipase (Lipase-Protease- (CREON) 36,000 Unt Cap, 1 CAP PO TID for 30 Days, #270 04/12/23 Loratadine (Loratadine) 10 Mg Cap, 10 MG PO, CAP 04/24/19 Metoprolol Succinate (Metoprolol Succinate Er) 25 Mg Tab, 25 MG PO DAILY, TAB 01/17/17 Levothyroxine Sodium (Levothyroxine Sodium) 75 Mcg Tab, 1 TAB PO DAILY for 90 Days, #90 12/24/16 Aspirin (Aspirin) 81 Mg Tab, 1 TAB PO DAILY for 90 Days, #90 12/24/16 Nitroglycerin (NTROSTAT SUBLINGUAL) 0.4 Mg Sl, 0.4 MG SL Q5MIN for FOR CHEST PAIN *MAY REPEAT EVERY 5 MINUTES X 3 TOTAL IF NO RELIEF, INITIATE ANALGESIC THERAPY. NOTIFY PHYSICIAN *Do not crush. 12/24/16 Discontinued Reported Medications Alprazolam (Alprazolam) 0.25 Mg Tab, 0.25 MG PO BID PRN for ANXIETY, TAB 04/12/23 Ondansetron (Zofran) 4 Mg Tab, 1 TAB PO Q6HR, #20 TAB 04/24/19 Famotidine (Famotidine) 20 Mg Tab, 40 MG PO BID for 30 Days, MG 04/24/19 Cholecalciferol (VITAMIN D3) 2,000 Unit Tab, 1 TAB PO DAILY, #30 TAB 5 Refills 04/24/19 Plan/Recommendation 83 yo F with fall 3 months ago with acute swelling/abrasion with continued pain -- infected Right total knee 1. Plan for right total knee explant, placement of antibiotic spacer, irrigation and debridement of right knee Risks benefits options and alternatives discussed in depth. Risks include but not limited to bleeding infection nerve injury hardware removal nonunion malunion chronic pain blood clots cardiac and pulmonary complications amputation and . Patient understands the risks and wishes to proceed with surgical i ntervention. Plan discussed with: Patient VA RAMEY Jun 21, 2024 17:06 HERBERT FARRAR MD Jun 24, 2024 06:51
--- NOTE | 2024-06-21 19:44 | DVHPN2 ---
Subjective c/o pain in rt knee since fall in 02/21. has had repeated arthrocentesis both by her ortho and bankruptcy assistant had knee replacement 2022 and was doing well still recent fall Changes from previous H/P or p: No Changes Objective Vitals Vital Signs Date Time Temp Pulse Resp B/P (MAP) Pulse Ox O2 Delivery O2 Flow Rate FiO2 06/21/24 17:00 98.2 76 16 148/62 (90) 91 98.2 06/21/24 08:00 Nasal Cannula* 2 28 Intake/Output Intake and Output 06/21/24 07:00 Intake Total 2054 ml Output Total 2250 ml Balance -196 ml Intake Oral 1904 ml IV Total 150 ml Output Urine Total 2250 ml General Appearance: Alert, Oriented X3, Cooperative, mild distress Lungs: Clear to auscultation Cardiovascular: Regular rate, Normal S1, Normal S2 Abdomen: Normal bowel sounds, Soft, No tenderness Musculoskeletal: Other (rt knee significan suprapatellar effusion/ and also fluid below knee) Extremities: No edema Neuro: Normal gait, Normal speech, Strength at 5/5 X4 ext, Sensation intact, C ranial nerves 3-12 NL, Reflexes 2+ Skin: Intact Psych/Mental Status: Mental status NL Medications Current Medications Medications Dose Ordered Sig/Irene Route Start Time Stop Time Status Last Admin Dose Admin Vancomycin HCl 0 ml @ 0 mls/hr UD IV 06/19/24 16:45 Ceftriaxone Sodium 50 ml @ 100 mls/hr DAILY@09 IV 06/20/24 09:00 06/21/24 07:57 100 MLS/HR Metoprolol Succinate 25 mg DAILY PO 06/20/24 10:00 06/21/24 07:56 25 MG Furosemide 40 mg DAILY PO 06/20/24 10:00 06/21/24 08:51 40 MG Hydrochlorothiazide 25 mg DAILY PO 06/20/24 10:00 06/21/24 07:54 25 MG Levothyroxine Sodium 75 mcg QAM@0600 PO 06/20/24 06:00 06/21/24 05:22 75 MCG Lisinopril 20 mg DAILY PO 06/20/24 10:00 06/21/24 07:55 20 MG Acetaminophen/ Hydrocodone Bitart 1 tab Q4HP PRN PO 06/19/24 18:45 06/21/24 04:41 1 TAB Acetaminophen 650 mg Q6HP PRN PO 06/19/24 18:45 Morphine Sulfate 2 mg Q6HPRN PRN IV 06/19/24 18:45 06/21/24 15:29 2 MG Vancomycin HCl 100 ml @ 200 mls/hr Q24H IV 06/20/24 14:00 06/21/24 15:04 200 MLS/HR Laboratory Results Laboratory Tests 06/21/24 04:49 Chemistry Test 06/21/24 04:49 Calcium Level 10.0 mg/dL (8.7-10.4) Microbiology Microbiology Date/Time Source Procedure Growth Status 06/19/24 19:44 Blood Blood Culture - Preliminary NO GROWTH AFTER 24 HOURS OF INCUBATION. Resulted Labs and/or images reviewed: Labs reviewed by me, Image(s) reviewed by me Assessment/Plan Assessment/Plan rt knee reccurrent large effusion/hematoma- states not on blood thinners consult ortho- empiric antibiotics untill fluid culture results/ortho to decide on need for extensive debridement/explorative surgery rt knee- d/w pt secondary thrombocytosis from inflammation knee htn stable hypothyroidism stable Plan discussed with: Patient Date of Service: Jun 21, 2024 Billing Provider: KATTY SANTO MD Common Visit Codes: [id number] INP/OBS CARE(MOD) KATTY SANTO MD Jun 21, 2024 19:44
[2024-06-22] VITALS (7 sets, daily range): BP systolic 129–134; BP diastolic 63–104; PULSE 74–84; RESP 17–20; TEMP 98–99.6; O2SAT 92–97
[2024-06-22] MEDS: MORPHINE SULFATE INJ 2 MG/ml SYRG IV PRN (02:42)
[2024-06-22 05:56] LABS: Basophils # (auto) 0 10 ^3/uL (0-0.2); Basophils % (auto) 0.2 % (0.0-2.0); Eosinophils # (auto) 0.3 10 ^3/uL (0-0.8); Nucleated Red Blood Cells % 0.1 %
[2024-06-22 05:58] LABS: Eosinophils % (auto) 1.8 % (0.0-7.0); Hematocrit 25.3 % (36.0-46.0); Hemoglobin 8.3 g/dL (12.2-16.2); Lymphocytes # (auto) 3.9 10 ^3/uL (0.4-5.4); Lymphocytes % (auto) 26.7 % (10.0-50.0); Mean Corpuscular Hemoglobin 25.7 pg (28.0-32.0); Mean Corpuscular Hgb Conc. 32.8 g/dL (32.0-36.0); Mean Corpuscular Volume 78.2 fL (80.0-100.0); Monocytes # (auto) 1.2 10 ^3/uL (0-1.3); Monocytes % (auto) 8.3 % (0.0-12.0); Neutrophils # (auto) 9.3 10 ^3/uL (1.6-8.6); Red Blood Cells 3.24 10^6/uL (4.0-5.20); Red Cell Distribution Width 17.6 % (11.8-14.3); White Blood Cell 14.8 10^3/uL (4.4-10.8)
[2024-06-22 06:10] LABS: Anion Gap 6 (5-15)
[2024-06-22 06:11] LABS: Calcium 10.3 mg/dL (8.7-10.4)
[2024-06-22 06:16] LABS: BUN/Creatinine Ratio 23.9 (10.0-20.0)
[2024-06-22 06:18] LABS: Blood Urea Nitrogen 28 mg/dL (9-23); Carbon Dioxide 35 mmol/L (20-31); Chloride 91 mmol/L (98-107); Glucose 107 mg/dL (74-106); Potassium 3.2 mmol/L (3.5-5.1); Sodium 132 mmol/L (136-145)
[2024-06-22 06:34] LABS: Platelet Count (auto) 914 10^3/uL (140-450)
[2024-06-22 07:46] LABS: Erythrocyte Sedimentation Rate 104 mm/hr (0-20)
--- NOTE | 2024-06-22 10:46 | DVH ---
Exam: US RIGHT LOWER EXTREMITY ULTRASOU Date: 06/22/2024 10:09 AM Clinical History: CHECK FOR FLUID RT KNEE Comparison: None Technique: Targeted sonographic evaluation of the soft tissues of the right knee was obtained utilizing grayscal e and color Doppler imaging. Findings: Large Right knee effusion. IMPRESSION: Large Right knee effusion.
--- NOTE | 2024-06-22 13:32 | DVH ---
US ULTRA GUIDED ABCESS DRAINAGE, HISTORY: RIGHT KNEE EFFUSION PROCEDURE: An informed consent was obtained. The patient was placed supine on the gurney. The suspic ious right knee fluid collection was localized with ultrasound and the overlying skin prepped with ch lorhexidine which was allowed to dry and draped in the usual sterile fashion. Time out was performed and infiltrated with 1% Xylocaine. With US guidance, 19-gauge centesis needle catheter was advanced i nto the fluid collection. Small amount was aspirated for appropriate microbiology/cytology/microbiolo gy and cytology analysis. Approximately 2 cc of hematoma fluid was aspirated. No immediate complica tion was identified. FINDINGS: Limited US scan of through the knee demonstrates a fluid collection. Collection appears com plex with echogenic material. IMPRESSION: US guided right knee arthrocentesis with 2 mL bloody fluid aspirated and the fluid collection can be a hematoma.
--- NOTE | 2024-06-22 14:18 | DVHPN2 ---
Progress Note - Dictate Date Seen: Jun 22, 2024 Medical Necessity Reason Pt with a Central, PICC or Fol: No Subjective PT S/P RIGHT KNEE REPLACEMENT NOW WITH EFFUSION S/P ARTHROCENTESIS TOTAL RIGHT KNEE ARTHROPLASTY PT WITH SEVERE OSTEOARTHRITIS ORGANIC HEART DISEASE HTN CAD WITH HX OF PTCA STENT HX OF CHF HRpEF / DIASTOLIC AFIB HYPERCOAGULABLE STATE Respiratory: denies: cough, hemoptysis, orthopnea, SOB at rest, shortness of breath, SOB with exertion, stridor, wheezing, others Gastrointestinal: Reports: abdominal pain, diarrhea, melena, vomiting, denies; poor appetite, poor fluid intake; constipated, diarrhea, dysphagia, difficulty swallowing, hematemesis, melena, nausea, rectal bleeding, rectal pain, vomiting, others Genitourinary: denies: abnormal vagina bleeding, burning, dyspareunia, dysuria, flank pain, frequency, hematuria, incontinence, pain, , vagina discharge, urgency, others Neurological: denies: dizziness, fainting, headache, left sided numbness, left sided weakness, numbness, paresthesia, pre-existing deficit, right sided numbness, right sided weakness, seizure, speech problems, tingling, tremors, weakness, others Musculoskeletal: denies: back pain, gout, joint pain, joint swelling, muscle pain, muscle stiffness, neck pain, others Integumentary: Denies: bruises, change in color, change in hair/nails, dryness, laceration, lesions, lumps, rash, wounds, others Allergic/Immunocompromised: denies: Difficulty Healing, Frequent Infections, Hives, Itching, others Hematologic/Lymphatic: denies: anemia, blood clots, easy bleeding, easy bruising, swollen glands, others Endocrine: denies: excessive hunger, excessive sweating, excessive thirst, excessive urination, flushing, intolerance to cold, intolerance to heat, unexplained weight gain, unexplained weight loss, others vital signs Vital Sign Date Time Temp Pulse Resp B/P (MAP) Pulse Ox O2 Delivery O2 Flow Rate FiO2 06/22/24 13:00 99.2 84 20 129/63 (85) 93 99.2 06/22/24 08:03 Nasal Cannula* 2 28 Total Intake and Output 06/21/24 06/21/24 06/22/24 15:00 23:00 07:00 Intake Total 530 ml 1860 ml 1200 ml Output Total 1300 ml 750 ml Balance 530 ml 560 ml 450 ml medications Current Medications Medications Dose Ordered Sig/Irene Route Start Time Stop Time Status Last Admin Dose Admin Vancomycin HCl 0 ml @ 0 mls/hr UD IV 06/19/24 16:45 Ceftriaxone Sodium 50 ml @ 100 mls/hr DAILY@09 IV 06/20/24 09:00 06/22/24 08:31 100 MLS/HR Metoprolol Succinate 25 mg DAILY PO 06/20/24 10:00 06/22/24 08:27 25 MG Levothyroxine Sodium 75 mcg QAM@0600 PO 06/20/24 06:00 06/22/24 05:05 75 MCG Lisinopril 20 mg DAILY PO 06/20/24 10:00 06/22/24 08:27 20 MG Acetaminophen/ Hydrocodone Bitart 1 tab Q4HP PRN PO 06/19/24 18:45 06/22/24 13:30 1 TAB Acetaminophen 650 mg Q6HP PRN PO 06/19/24 18:45 Vancomycin HCl 100 ml @ 200 mls/hr Q24H IV 06/20/24 14:00 06/22/24 13:42 200 MLS/HR Morphine Sulfate 2 mg Q8HPRN PRN IV 06/22/24 02:30 06/22/24 10:32 2 MG objective HEENT: Head is atraumatic normocephalic, eyes PERRLA, ENT oropharynx moist and clear, neck supple, no tenderness, trachea midline, no masses no JVD. Chest: Denies chest pain, no diaphoresis, no mass adenopathy, no tenderness. Cardiac: Regular rate and rhythm, S1-S2 normal, no murmurs, no rubs or gallops. Pulmonary: No shortness of breath, lungs are clear to auscultation bilaterally, no wheezing, no rales or rhonchi. Abdomen: Soft, tender, nondistended, no masses, bowel sounds positive. Genitourinary: Denies dysuria, no urinary frequency, no hematuria. Skin: Skin warm and dry to touch no rash or lesion, no ulceration. Extremities: No clubbing, no edema, no tenderness, no varicosity. Neurologic: Grossly intact, no new focal motor deficit, no numbness or tingling. laboratory and microbiology Laboratory Tests 06/22/24 04:47 Test 06/22/24 04:47 Range/Units Serum Glucose 107 H 74-106 mg/dL Problem List SEVERE OSTEOARTHRITIS RIGHT KNEE EFFUSION LEUKOCYTOSIS ANEMIA PMH ORGANIC HEART DISEASE HTN CAD WITH HX OF PTCA STENT HX OF CHF HRpEF / DIASTOLIC AFIB HYPERCOAGULABLE STATE HYPOKALEMIA Assessment/Plan ABX CT OF KNEE ASPIRATION AND CX CORRECT HYPOKALEMIA IRON INFUSION EPOGEN ASPIRATE NOT SENT FOR CELL COUNT LARGE EFFUSION NEEDS EVACUATION Plan discussed with: Patient ANISH DIAZ MD Jun 22, 2024 14:18
--- NOTE | 2024-06-22 14:20 | DVHPNRES ---
Progress Note Date Seen: Jun 22, 2024 Resident Creating Document: KASSIDY SCHAEFER RESIDENT Medical Necessity Reason Pt with a Central, PICC or Fol: No Subjective Patient reports: Feels worse Changes from previous H/P or p: No Changes Review of Systems: HEENT:Normal, CVS:Normal, RESPIRATORY:Normal, GI:Normal, :Normal, MSK:Abnormal (Right knee pain, right knee swelling, painful to minimal touch, difficult to move. Status post aspiration), NEURO:Normal (Bilateral lower leg intact neurological functions touch temperature sensation and muscular functions no signs of compartment syndrome) Objective vital signs Vital Sign Date Time Temp Pulse Resp B/P (MAP) Pulse Ox O2 Delivery O2 Flow Rate FiO2 06/22/24 13:00 99.2 84 20 129/63 (85) 93 99.2 06/22/24 08:03 Nasal Cannula* 2 28 Total Intake and Output 06/21/24 06/21/24 06/22/24 14:59 22:59 06:59 Intake Total 530 ml 1860 ml 1200 ml Output Total 1300 ml 750 ml Balance 530 ml 560 ml 450 ml medications Current Medications Medications Dose Ordered Sig/Irene Route Start Time Stop Time Status Last Admin Dose Admin Vancomycin HCl 0 ml @ 0 mls/hr UD IV 06/19/24 16:45 Ceftriaxone Sodium 50 ml @ 100 mls/hr DAILY@09 IV 06/20/24 09:00 06/22/24 08:31 100 MLS/HR Metoprolol Succinate 25 mg DAILY PO 06/20/24 10:00 06/22/24 08:27 25 MG Levothyroxine Sodium 75 mcg QAM@0600 PO 06/20/24 06:00 06/22/24 05:05 75 MCG Lisinopril 20 mg DAILY PO 06/20/24 10:00 06/22/24 08:27 20 MG Acetaminophen/ Hydrocodone Bitart 1 tab Q4HP PRN PO 06/19/24 18:45 06/22/24 13:30 1 TAB Acetaminophen 650 mg Q6HP PRN PO 06/19/24 18:45 Vancomycin HCl 100 ml @ 200 mls/hr Q24H IV 06/20/24 14:00 06/22/24 13:42 200 MLS/HR Morphine Sulfate 2 mg Q8HPRN PRN IV 06/22/24 02:30 06/22/24 10:32 2 MG Examination: GENERAL:Normal (At rest comfortable. Movement of right knee makes her distressed.), HEENT:Normal, NECK:Normal, LUNGS:Abnormal (Basal rales likely due to atelectasis,), CVS:Normal, ABDOMEN:Normal, MSK:Abnormal (Right knee distorted, swollen, tenderness positive, loss of joint movement. Bilateral lower leg low muscle mass. Loculated multiple collection seen 1 of them seen outside of the joint in the lower part of the thigh with 10 membrane bolus.), SKIN:Normal, NEURO:Normal laboratory and microbiology Laboratory Tests 06/22/24 04:47 Test 06/22/24 04:47 Range/Units Serum Glucose 107 H 74-106 mg/dL Microbiology Date/Time Source Procedure Growth Status 06/19/24 19:44 Blood Blood Culture - Preliminary NO GROWTH AFTER 48 HOURS OF INCUBATION. Resulted Labs and/or images reviewed: Labs reviewed by me, Image(s) reviewed by me Problem List/Assessment/Plan Problem List/Assessment/Plan Assessment: Mr. Louise, 83-year-old female presents with knee pain following a fall three months ago, resulting in intermittent swelling and multiple knee drainages. She has been unable to see her orthopedic surgeon and seeks further evaluation. She denies fever or chills. Her medical history includes hypertension, GERD, osteoarthritis, hypothyroidism, and heart failure. She has undergone knee surgery and has a history of severe osteoarthritis, organic heart disease, hypertension, coronary artery disease with PTCA stent placement, congestive heart failure with preserved ejection fraction, atrial fibrillation, and a hypercoagulable state Plan: #1 right knee effusion, likely loculated pus/effusion, present on admission: F luids taken by IR, culture sent, follow. Continue empiric treatment with IV cefepime, vancomycin with a high probability of Pseudomonas infection. #2 Orthopedic prosthesis infection, present on admission: Last positive was done in April 19, 2023, patient is having recommended inpatient since last 3 months. Outpatient mccarthy fluid was taken out for therapeutic arthrocentesis, needs further evaluation by orthopedics for possible surgical management/processes removal. #3 High consult for osteomyelitis, given chronic infection, significantly persistently elevated ESR and CRP. 3 months of worsening infection in the joint. We will order an MRI of the right knee. Orthopedics consult done. Looking for the plan. #4 Sepsis: secondary due to above, lactate unremarkable which is reassuring. #5 chronic knee pain worsened over past 3 months: Patient on [place] 10, tramadol 50 mg at home. #6 essential hypertension: At home lisinopril 20 mg, and hydrochlorothiazide 25 mg daily. targeted blood pressure 140/90 or below. Blood pressure fluctuating, highest 160s. Given active sepsis we will hold home antihypertensives for now. #7 Extensive osteoarthritis: Small and large joint extensive osteoarthritis noted. Bilateral lower limb hammertoe noted. Apart from right knee joint other joints are unremarkable for active foci of infection. #8 Mild malnutrition: With muscle mass loss could be also due to disuse atrophy. Continue supportive diet and management. #9 Bilateral hammertoe: Chronic condition no acute changes noted. Patient denies any previous history of gout. #10 BRYAN due to VMN: Multifactorial could be sepsis related, baseline around 0.9. Avoid nephrotoxic, IV hydration, close follow up with I&O output #11 anxiety/depression: Alprazolam 0.5 p.o. b.i.d. p.r.n., amitriptyline 50 mg p.o. at night. bupropion 100 mg q.8 hour. #12 Vitamin-D deficiency: At home patient on 2000 units per day vitamin supplement. Continue. #13 Intermittent constipation: Docusate sodium 100 mg as needed. MiraLax if needed had on. #14 Allergic rhinitis: Patient on fluticasone #15 essential hypertension: At home hydrochlorothiazide 25 mg, lisinopril 20 mg #16 hypothyroidism: Patient on levothyroxine 75 mcg, TSH amlodipine continue home medications. #17 Dyslipidemia: Simvastatin 40 mg daily. Can be continued outpatient at discharge. #18 GERD: Intermittent nausea, omeprazole 20 mg daily, ondansetron 4 mg daily. as needed famotidine. #19 Chronic pancreatic insufficiency: patient is on Creon [id number] t.i.d. #20 Back pain: Cyclobenzaprine 10 mg p.o. b.i.d. #21 reactive thrombocytosis: moderate to severe with decreased at [id number] persistently #22 known atopic disease with seasonal allergy: Loratadine 10 mg #23 dizziness/ BPPV: Meclizine 25 mg t.i.d. p.r.n. #24 known CAD: Nitroglycerin as needed, aspirin, anti lipids to continue. Presently denying any chest pain. PUD prophylaxis: protonix 40mg as needed DVT prophylaxis: Lovenox 40mg subcutaneous Barriers to discharge: Medical diagnosis and management in progress. Patient lives with Herself and her dog. Independent and recently needs the walker and person support for ADL. PT and SW consult as needed. she wishes to return home with caregiver support post-discharge. PCP: Dr. Modi Specialist Relevant To Admission: IR, orthopedics Dr. García Case discussed with Dr. Senior. Code Status: Full Code. Discussion needed total 25 minutes bedside. Plan discussed with: Patient, Other (PRIMARY TEAM, RN.) My Orders My Orders Orders - KASSIDY SCHAEFER Procedure Category Date Status Time Ultra Guided Abcess US 06/22/24 Resulted Drainage Date of Service: Jun 22, 2024 Billing Provider: DUY SENIOR MD Common Visit Codes: [id number] INP/OBS CARE(HIGH) KASSIDY SCHAEFER Jun 22, 2024 14:20 DUY SENIOR MD Jun 23, 2024 17:24
[2024-06-22 16:41] LABS: Alanine Aminotransferase 16 U/L (7-40); Albumin 3.8 g/dL (3.2-4.8); Alkaline Phosphatase 95 U/L (46-116); Anion Gap 7 (5-15); Aspartate Aminotransferase 17 U/L (13-40); BUN/Creatinine Ratio 23.6 (10.0-20.0); Calcium 10.3 mg/dL (8.7-10.4); Glucose 104 mg/dL (74-106)
[2024-06-22 16:42] LABS: Total Protein 8.1 g/dL (5.7-8.2)
[2024-06-22] MEDS: POTASSIUM EFFERVESENT TAB 25 MEQ GT ONE (16:43)
[2024-06-22 16:50] LABS: Bilirubin, Total < 0.2 mg/dL (0.2-1.0); Blood Urea Nitrogen 30 mg/dL (9-23); Carbon Dioxide 36 mmol/L (20-31); Chloride 87 mmol/L (98-107); Potassium 3.5 mmol/L (3.5-5.1); Sodium 130 mmol/L (136-145)
[2024-06-23] VITALS (7 sets, daily range): BP systolic 102–163; BP diastolic 60–69; PULSE 72–87; RESP 16–20; TEMP 97.1–98.7; O2SAT 92–98
[2024-06-23] MEDS: CEFEPIME 2GM/50ML NS 50 ML IV SCH (04:53)
[2024-06-23] MEDS: ACETAMINOPHEN 325 MG TAB PO PRN (04:54)
--- NOTE | 2024-06-23 14:14 | DVHPNRES ---
Progress Note Date Seen: Jun 23, 2024 Resident Creating Document: KASSIDY SCHAEFER RESIDENT Medical Necessity Reason Pt with a Central, PICC or Fol: No Subjective Review of Systems Review of Systems: HEENT:Normal, CVS:Normal, RESPIRATORY:Normal, GI:Normal, :Normal, MSK:Abnormal (Right knee pain, right knee swelling, painful to minimal touch, difficult to move. Status post aspiration), NEURO:Normal (Bilateral lower leg intact neurological functions touch temperature sensation and muscular functions no signs of compartment syndrome) Objective vital signs Vital Sign Date Time Temp Pulse Resp B/P (MAP) Pulse Ox O2 Delivery O2 Flow Rate FiO2 06/23/24 12:48 98.6 77 20 102/61 (75) 98 98.6 06/23/24 08:00 Nasal Cannula* 2 28 Total Intake and Output 06/22/24 06/22/24 06/23/24 15:00 23:00 07:00 Intake Total 240 ml 1510 ml 800 ml Output Total 575 ml 1300 ml Balance 240 ml 935 ml -500 ml medications Current Medications Medications Dose Ordered Sig/Irene Route Start Time Stop Time Status Last Admin Dose Admin Vancomycin HCl 0 ml @ 0 mls/hr UD IV 06/19/24 16:45 Metoprolol Succinate 25 mg DAILY PO 06/20/24 10:00 06/23/24 09:16 25 MG Levothyroxine Sodium 75 mcg QAM@0600 PO 06/20/24 06:00 06/23/24 05:18 75 MCG Lisinopril 20 mg DAILY PO 06/20/24 10:00 06/23/24 09:15 20 MG Acetaminophen/ Hydrocodone Bitart 1 tab Q4HP PRN PO 06/19/24 18:45 06/23/24 13:34 1 TAB Acetaminophen 650 mg Q6HP PRN PO 06/19/24 18:45 06/23/24 04:54 650 MG Vancomycin HCl 100 ml @ 200 mls/hr Q24H IV 06/20/24 14:00 06/22/24 13:42 200 MLS/HR Morphine Sulfate 2 mg Q8HPRN PRN IV 06/22/24 02:30 06/22/24 18:06 2 MG Cefepime HCl 50 ml @ 12.5 mls/hr DAILY@2200 IV 06/22/24 23:00 06/23/24 04:53 12.5 MLS/HR Examination GENERAL:Normal (At rest comfortable. Movement of right knee makes her distressed.), HEENT:Normal, NECK:Normal, LUNGS:Abnormal (Basal rales likely due to atelectasis,), CVS:Normal, ABDOMEN:Normal, MSK:Abnormal (Right knee distorted, swollen, tenderness positive, loss of joint movement. Bilateral lowe r leg low muscle mass. Loculated multiple collection seen 1 of them seen outside of the joint in the lower part of the thigh with 10 membrane bolus.), SKIN:Normal, NEURO:Normal laboratory and microbiology Test 06/23/24 13:18 Range/Units Serum Glucose Pending Microbiology Date/Time Source Procedure Growth Status 06/22/24 13:25 Aspirate Gram Stain - Final Resulted 06/22/24 13:25 Aspirate Body Fluid Culture - Preliminary Resulted 06/19/24 19:44 Blood Blood Culture - Preliminary NO GROWTH AFTER 72 HOURS OF INCUBATION. Resulted Labs and/or images reviewed: Labs reviewed by me, Image(s) reviewed by me Problem List/Assessment/Plan Problem List/Assessment/Plan Assessment: Mrs. Louise, an 83-year-old female, presents with knee pain following a fall three months ago, resulting in intermittent swelling and multiple knee drainages. She has been unable to see her orthopedic surgeon and seeks further evaluation. She denies fever or chills. Her medical history includes hypertension, GERD, osteoarthritis, hypothyroidism, and heart failure. She has undergone knee surgery and has a history of severe osteoarthritis, organic heart disease, hypertension, coronary artery disease with PTCA stent placement, congestive heart failure with preserved ejection fraction, atrial fibrillation, and a hypercoagulable state. Plan: 1. Right knee effusion, likely loculated pus/effusion, present on admission: Fluids taken by IR, culture sent, follow. Continue empiric treatment with IV cefepime and vancomycin with a high probability of Pseudomonas infection. 2. Orthopedic prosthesis infection, present on admission: Last positive was on April 19, 2023. The patient has been recommended inpatient care for the last 3 months. Outpatient-mccarthy, fluid was taken out for therapeutic arthrocentesis. Needs further evaluation by orthopedics for possible surgical management/prosth esis removal. 3. LIkely osteomyelitis, given chronic infection, significantly persistently elevated ESR and CRP: 3 months of worsening infection in the joint. We will order an MRI of the right knee. Orthopedics consult done. Looking for the planned prosthesis removal tomorrow. 4. Sepsis: Secondary due to the above 5. Chronic knee pain worsened over the past 3 months: Patient on [place] 10, tramadol 50 mg at home. 6. Essential hypertension: At home, lisinopril 20 mg and hydrochlorothiazide 25 mg daily. Targeted blood pressure 140/90 or below. Blood pressure fluctuating, highest 160s. Given active sepsis, we will hold home antihypertensives for now. 7. Extensive osteoarthritis: Small and large joint extensive osteoarthritis noted. Bilateral lower limb hammertoe noted. Apart from the right knee joint, other joints are unremarkable for active foci of infection. 8. Mild malnutrition: With muscle mass loss, could be also due to disuse atrophy. Continue supportive diet and management. 9. Bilateral hammertoe: Chronic condition, no acute changes noted. Patient denies any previous history of gout. 10. BRYAN due to VMN: Multifactorial, could be sepsis-related, baseline around 0.9. Avoid nephrotoxic agents, IV hydration, close follow-up with I&O output. 11. Anxiety/depression: Alprazolam 0.5 p.o. b.i.d. p.r.n., amitriptyline 50 mg p.o. at night, bupropion 100 mg q.8 hour. 12. Vitamin-D deficiency: At home, patient on 2000 units per day vitamin supplement. Continue. 13. Intermittent constipation: Docusate sodium 100 mg as needed. MiraLax if needed. 14. Allergic rhinitis: Patient on fluticasone. 15. Essential hypertension: At home, hydrochlorothiazide 25 mg, lisinopril 20 mg. 16. Hypothyroidism: Patient on levothyroxine 75 mcg, TSH amlodipine. Continue home medications. 17. Dyslipidemia: Simvastatin 40 mg daily. Can be continued outpatient at discharge. 18. GERD: Intermittent nausea, omeprazole 20 mg daily, ondansetron 4 mg daily, as needed famotidine. 19. Chronic pancreatic insufficiency: Patient is on [place] [id number] t.i.d. 20. Back pain: Cyclobenzaprine 10 mg p.o. b.i.d. 21. Reactive thrombocytosis: Moderate to severe, [id number] persistently. 22. Known atopic disease with seasonal allergy: Loratadine 10 mg. 23. Dizziness/BPPV: Meclizine 25 mg t.i.d. p.r.n. 24. Known CAD: Nitroglycerin as needed, aspirin, anti-lipids to continue. Presently denying any chest pain. PUD prophylaxis: Protonix 40 mg as needed. DVT prophylaxis: Lovenox 40 mg subcutaneous. Barriers to discharge: Medical diagnosis and management in progress. Patient lives with herself and her dog. Independent and recently needs the walker and person support for ADL. PT and SW consult as needed. She wishes to return home with caregiver support post-discharge. PCP: Dr. Modi. Specialist Relevant To Admission: IR, orthopedics Dr. García. Case discussed with Dr. Senior. Code Status: Full Code. Discussion needed total 25 minutes bedside. Plan discussed with: Patient, Other My Orders My Orders Orders - KASSIDY SCHAEFER Procedure Category Date Status Time Cefepime 2gm/50ml Ns PHA 06/22/24 In Process (Maxipime 2gm/50ml) 23:00 Complete Blood Count LAB 06/23/24 In Process 12:36 Comprehensive LAB 06/23/24 In Process Metabolic Panel 12:36 Date of Service: Jun 23, 2024 Billing Provider: DUY SENIOR MD Common Visit Codes: [id number] INP/OBS CARE(HIGH) KASSIDY SCHAEFER Jun 23, 2024 14:14 DUY SENIOR MD Jun 23, 2024 20:19
[2024-06-23 14:25] LABS: Alanine Aminotransferase 13 U/L (7-40); Albumin 3.5 g/dL (3.2-4.8); Alkaline Phosphatase 85 U/L (46-116); Anion Gap 7 (5-15); Aspartate Aminotransferase 19 U/L (13-40); BUN/Creatinine Ratio 24.8 (10.0-20.0); Potassium 3.7 mmol/L (3.5-5.1)
[2024-06-23 14:26] LABS: Total Protein 7.5 g/dL (5.7-8.2)
[2024-06-23 14:36] LABS: Basophils # (auto) 0 10 ^3/uL (0-0.2); Bilirubin, Total 0.2 mg/dL (0.2-1.0); Blood Urea Nitrogen 28 mg/dL (9-23); Calcium 8.3 mg/dL (8.7-10.4); Carbon Dioxide 32 mmol/L (20-31); Chloride 91 mmol/L (98-107); Eosinophils # (auto) 0.2 10 ^3/uL (0-0.8); Eosinophils % (auto) 1.7 % (0.0-7.0); Glucose 115 mg/dL (74-106); Mean Corpuscular Hgb Conc. 31.7 g/dL (32.0-36.0); Neutrophils # (auto) 8.7 10 ^3/uL (1.6-8.6); Nucleated Red Blood Cells % 0.1 %; Sodium 130 mmol/L (136-145)
[2024-06-23 14:38] LABS: Basophils % (auto) 0.2 % (0.0-2.0); Hematocrit 24.5 % (36.0-46.0); Hemoglobin 7.8 g/dL (12.2-16.2); Lymphocytes # (auto) 2.5 10 ^3/uL (0.4-5.4); Lymphocytes % (auto) 20.1 % (10.0-50.0); Mean Corpuscular Volume 78.9 fL (80.0-100.0); Monocytes # (auto) 0.9 10 ^3/uL (0-1.3); Monocytes % (auto) 7.5 % (0.0-12.0); Neutrophils % (auto) 70.5 % (37.0-80.0); Red Blood Cells 3.11 10^6/uL (4.0-5.20); Red Cell Distribution Width 18.1 % (11.8-14.3); White Blood Cell 12.4 10^3/uL (4.4-10.8)
[2024-06-23 14:40] LABS: Platelet Count (auto) 839 10^3/uL (140-450)
[2024-06-23] MEDS ORDERED: LORazepam 0.5 MG TAB PO ONE (15:30)
[2024-06-23] MEDS: LORazepam 0.5 MG TAB PO ONE (22:30)
[2024-06-24] VITALS (7 sets, daily range): BP systolic 121–132; BP diastolic 51–76; PULSE 62–95; RESP 11–22; TEMP 97.6–98.7; O2SAT 93–99
[2024-06-24 07:20] LABS: Basophils # (auto) 0 10 ^3/uL (0-0.2); Eosinophils # (auto) 0.3 10 ^3/uL (0-0.8); Lymphocytes # (auto) 1.6 10 ^3/uL (0.4-5.4); Mean Corpuscular Volume 78.8 fL (80.0-100.0); Monocytes # (auto) 1.2 10 ^3/uL (0-1.3); Red Cell Distribution Width 17.9 % (11.8-14.3)
[2024-06-24 07:22] LABS: Basophils % (auto) 0.3 % (0.0-2.0); Eosinophils % (auto) 3.1 % (0.0-7.0); Hematocrit 23.7 % (36.0-46.0); Hemoglobin 7.8 g/dL (12.2-16.2); Lymphocytes % (auto) 14.6 % (10.0-50.0); Mean Corpuscular Hemoglobin 25.9 pg (28.0-32.0); Mean Corpuscular Hgb Conc. 32.9 g/dL (32.0-36.0); Monocytes % (auto) 10.4 % (0.0-12.0); Neutrophils # (auto) 7.9 10 ^3/uL (1.6-8.6); Neutrophils % (auto) 71.6 % (37.0-80.0); Nucleated Red Blood Cells % 0.1 %; Red Blood Cells 3.01 10^6/uL (4.0-5.20); White Blood Cell 11.1 10^3/uL (4.4-10.8)
[2024-06-24] MEDS ORDERED: fentaNYL CITRATE 100 MCG/2 ML VL ONE (07:23)
[2024-06-24] MEDS ORDERED: MORPHINE SULF PF 5 MG/10 ML VIAL ONE (07:23)
--- NOTE | 2024-06-24 07:27 | DVH ---
CHEST RADIOGRAPH Indication: PREOP Technique: Single frontal view of the chest was obtained Comparison: CXRP on DOS: 11/16/21, CXRP on DOS: 11/12/21, CXR1 on DOS: 11/11/21 FINDINGS: Lines and Tubes: None Lungs: No focal consolidation. Pleura: No effusion. No pneumothorax. Cardiomediastinal contours: Unremarkable Bones: No acute osseous abnormality. Right glenohumeral arthrosis. IMPRESSION: 1. No acute cardiopulmonary disease.
[2024-06-24 07:30] LABS: Platelet Count (auto) 795 10^3/uL (140-450)
[2024-06-24] MEDS ORDERED: MIDAZOLAM HCL 2MG/2ML 2ml VIAL (1mg/ml) ONE (07:40)
[2024-06-24] MEDS: VANCOMYCIN HCL 1000 MG VL ONE ×2 (07:43→08:20)
[2024-06-24] MEDS: BUPIVACAINE 0.25% INJ 50ML VIAL ONE (07:43)
[2024-06-24] MEDS: CEFEPIME 1GM/ 50ML 50 ML IV ONE ×2 (07:44→08:14)
[2024-06-24 07:49] LABS: Urine Bacteria None Seen /hpf (None Seen)
[2024-06-24 08:00] LABS: Urine Blood 1+ /uL (Negative); Urine Clarity Clear (Clear); Urine Color Light-Yellow (Yellow); Urine Protein, UAD 1+ (Negative); Urine Specific Gravity 1.016 (1.001-1.035); Urine Squamous Epithelial Cell FEW /hpf (<5); Urine Urobilinogen Normal (Negative); Urine WBC 16 /hpf (0 - 5); Urine pH 6.5 (5.0-9.0)
--- NOTE | 2024-06-24 09:39 | POSTOP ---
Post-Operative Note Post-Operative Note Preop Diagnosis Infected right knee replacement Postop Diagnosis: as above Operation performed right knee explant, placement of antibiotic spacer, irrigation and debridement of knee Specimen right knee tissue Anesthesia: Regional Anesthesiologist: Gayatri Blood Loss(fluid mgmt) 50 cc Surgeon Garfield García MD Implant House and nephew size 5 femur CR size 15 poly Date 06/24/24 Time 09:37 GARFIELD GARCÍA MD Jun 24, 2024 09:38
[2024-06-24] MEDS ORDERED: HYDROmorphone HCL 2 MG/ML VL/or syr IV ONE (09:56)
[2024-06-24] MEDS: HYDROmorphone HCL 2 MG/ML VL/or syr IV PRN (10:05)
[2024-06-24] MEDS: ACETAMINOPHEN IV 1000 MG/100ML (10MG/ML) IV ONE (10:05)
[2024-06-24] MEDS ORDERED: NITROGLYCERIN 0.4 MG SL TAB SL SCH (10:15)
[2024-06-24] MEDS ORDERED: MECLIZINE HCL 25 MG TAB PO PRN (10:15)
[2024-06-24] MEDS: HYDROmorphone HCL 2 MG/ML VL/or syr ONE (10:19)
[2024-06-24] MEDS: ACETAMINOPHEN IV 100 ML IV ONE (10:19)
[2024-06-24 12:12] LABS: Basophils # (auto) 0.1 10 ^3/uL (0-0.2); Basophils % (auto) 0.4 % (0.0-2.0); Eosinophils # (auto) 0.3 10 ^3/uL (0-0.8); Eosinophils % (auto) 2.4 % (0.0-7.0); Hemoglobin 7.3 g/dL (12.2-16.2); Lymphocytes # (auto) 2.4 10 ^3/uL (0.4-5.4); Lymphocytes % (auto) 17.4 % (10.0-50.0); Monocytes # (auto) 1.1 10 ^3/uL (0-1.3); Monocytes % (auto) 7.9 % (0.0-12.0); Neutrophils # (auto) 9.7 10 ^3/uL (1.6-8.6); Neutrophils % (auto) 71.9 % (37.0-80.0); White Blood Cell 13.5 10^3/uL (4.4-10.8)
[2024-06-24 12:13] LABS: Mean Corpuscular Hemoglobin 25.3 pg (28.0-32.0); Mean Corpuscular Hgb Conc. 31.9 g/dL (32.0-36.0); Mean Corpuscular Volume 79.2 fL (80.0-100.0); Red Cell Distribution Width 17.7 % (11.8-14.3)
[2024-06-24 12:14] LABS: Platelet Count (auto) 751 10^3/uL (140-450)
--- NOTE | 2024-06-24 13:01 | DVHPNRES ---
Progress Note Date Seen: Jun 24, 2024 Resident Creating Document: KASSIDY SCHAEFER RESIDENT Medical Necessity Reason Pt with a Central, PICC or Fol: No Subjective Review of Systems GENERAL:Normal, HEENT:Normal, NECK:Normal, LUNGS:Abnormal (Bilateral lower lobe crackles, bilateral air entry equal, right upper chest painful around the area of for but no skin changes.), CVS:Normal, ABDOMEN:Normal, MSK:Normal, SKIN:Normal, NEURO:Normal Status post surgery this AM Patient reports: Feels better Objective vital signs Vital Sign Date Time Temp Pulse Resp B/P (MAP) Pulse Ox O2 Delivery O2 Flow Rate FiO2 06/24/24 11:00 67 12 111/36 (61) 98 06/24/24 09:45 Nasal Cannula 2.0 99 06/24/24 09:45 97.0 97.0 Total Intake and Output 06/23/24 06/23/24 06/24/24 15:00 23:00 07:00 Intake Total 240 ml 1500 ml 600 ml Output Total 1000 ml Balance 240 ml 500 ml 600 ml medications Current Medications Medications Dose Ordered Sig/Irene Route Start Time Stop Time Status Last Admin Dose Admin Vancomycin HCl 0 ml @ 0 mls/hr UD IV 06/19/24 16:45 Metoprolol Succinate 25 mg DAILY PO 06/20/24 10:00 06/23/24 09:16 25 MG Lisinopril 20 mg DAILY PO 06/20/24 10:00 06/23/24 09:15 20 MG Acetaminophen/ Hydrocodone Bitart 1 tab Q4HP PRN PO 06/19/24 18:45 06/24/24 12:30 1 TAB Acetaminophen 650 mg Q6HP PRN PO 06/19/24 18:45 06/23/24 04:54 650 MG Vancomycin HCl 100 ml @ 200 mls/hr Q24H IV 06/20/24 14:00 06/23/24 15:21 200 MLS/HR Morphine Sulfate 2 mg Q8HPRN PRN IV 06/22/24 02:30 06/23/24 17:57 2 MG Cefepime HCl 50 ml @ 12.5 mls/hr DAILY@2200 IV 06/22/24 23:00 06/23/24 21:14 12.5 MLS/HR Alprazolam 0.5 mg BID PO 06/24/24 22:00 Aspirin 81 mg DAILY PO 06/25/24 10:00 Bupropion HCl 100 mg Q8HR PO 06/24/24 14:00 Carisoprodol 350 mg QPM PO 06/24/24 18:00 Cholecalciferol 1,000 unit DAILY PO 06/25/24 10:00 Cyclobenzaprine HCl 10 mg BID PO 06/24/24 22:00 Docusate Sodium 100 mg BID PO 06/24/24 22:00 Meclizine HCl 25 mg TID PRN PO 06/24/24 10:15 Nitroglycerin 0.4 mg Q5MIN SL 06/24/24 10:15 Sucralfate 1 gm BID PO 06/24/24 22:00 Tramadol HCl 50 mg BID PO 06/24/24 22:00 Amitriptyline HCl 100 mg DAILY PO 06/25/24 10:00 Fluticasone Propionate 50 mcg DAILY EACHNOSTRI 06/25/24 10:00 Levothyroxine Sodium 75 mcg QAM PO 06/25/24 07:00 Patient Own Medication 1 cap TID PO 06/24/24 14:00 UNV Examination GENERAL:Normal (At rest comfortable. Movement of right knee makes her distressed.), HEENT:Normal, NECK:Normal, LUNGS:Abnormal (Basal rales likely due to atelectasis,), CVS:Normal, ABDOMEN:Normal, MSK:Abnormal (Right knee distorted, swollen, tenderness positive, loss of joint movement. Bilateral lower leg low muscle mass. Loculated multiple collection seen 1 of them seen outside of the joint in the lower part of the thigh with 10 membrane bolus.), SKIN:Normal, NEURO:Normal laboratory and microbiology Laboratory Tests 06/24/24 12:00 06/24/24 06:29 06/23/24 13:18 Test 06/23/24 13:18 Range/Units Serum Glucose 115 H 74-106 mg/dL Microbiology Date/Time Source Procedure Growth Status 06/22/24 13:25 Aspirate Gram Stain - Final Complete 06/22/24 13:25 Body Fluid Culture - Final Pseudomonas aeruginosa Complete 06/19/24 19:44 Blood Blood Culture - Preliminary NO GROWTH AFTER 72 HOURS OF INCUBATION. Resulted Labs and/or images reviewed: Labs reviewed by me, Image(s) reviewed by me Problem List/Assessment/Plan Problem List/Assessment/Plan Assessment: Mrs. Louise, an 83-year-old female, presents with knee pain following a fall three months ago, resulting in intermittent swelling and multiple knee drainages. She has been unable to see her orthopedic surgeon and seeks further evaluation. She denies fever or chills. Her medical history includes hypertension, GERD, osteoarthritis, hypothyroidism, and heart failure. She has undergone knee surgery and has a history of severe osteoarthritis, organic heart disease, hypertension, coronary artery disease with PTCA stent placement, congestive heart failure with preserved ejection fraction, atrial fibrillation, and a hypercoagulable state. S/p surgery. Plan: #1. Right Septic arthritis: Pseudomonas infection. D/c Vancomycin, continue IV cefepime. PICC line consulted. 6 weeks of IV antibiotics. ID consulted for outpatient follow up. [facility] pain management, with home dose norco q6 and iv morphine. #2. Orthopedic prosthesis infection, present on admission: Last positive was on April 19, 2023. The patient has been recommended inpatient care for the last 3 months. Outpatient-mccarthy, fluid was taken out for therapeutic arthrocentesis. S/p surgery today. 3. Likely osteomyelitis, given chronic infection, significantly persistently elevated ESR and CRP: 3 months of worsening infection in the joint. S/p prosthesis removal will extend antibiotics to cover osteomyelitis. Might require MRI. 4. Sepsis, resolved 5. Chronic knee pain worsened over the past 3 months: Patient on Louann 10, tramadol 50 mg at home. likely will not need further meds as source removed. 6. Essential hypertension: At home, lisinopril 20 mg and hydrochlorothiazide 25 mg daily. Targeted blood pressure 140/90 or below. Blood pressure fluctuating, highest 160s. we will hold home antihypertensives for now. 7. Extensive osteoarthritis: Small and large joint extensive osteoarthritis noted. Bilateral lower limb hammertoe noted. Apart from the right knee joint, other joints are unremarkable for active foci of infection. 8. Mild malnutrition: With muscle mass loss, could be also due to disuse atrophy. Continue supportive diet and management. 9. Bilateral hammertoe: Chronic condition, no acute changes noted. Patient denies any previous history of gout. 10. BRYAN due to VMN, : Multifactorial, could be sepsis-related, baseline around 0.9. Avoid nephrotoxic agents, IV hydration, close follow-up with I&O output. 11. Anxiety/depression: Alprazolam 0.5 p.o. b.i.d. p.r.n., amitriptyline 50 mg p.o. at night, bupropion 100 mg q.8 hour. 12. Vitamin-D deficiency: At home, patient on 2000 units per day vitamin supplement. Continue. 13. Intermittent constipation: Docusate sodium 100 mg as needed. MiraLax if needed. 14. Allergic rhinitis: Patient on fluticasone. 15. Known CAD: Nitroglycerin as needed, aspirin, anti-lipids to continue. Presently denying any chest pain. 16. Hypothyroidism: Patient on levothyroxine 75 mcg, TSH amlodipine. Continue home medications. 17. Dyslipidemia: Simvastatin 40 mg daily. Can be continued outpatient at discharge. 18. GERD: Intermittent nausea, omeprazole 20 mg daily, ondansetron 4 mg daily, as needed famotidine. 19. Chronic pancreatic insufficiency: Patient is on Creon [id number] t.i.d. 20. Back pain: Cyclobenzaprine 10 mg p.o. b.i.d. 21. Reactive thrombocytosis: Moderate to severe with decreased at [id number],000 improving. follow cbc with diff. 22. Known atopic disease with seasonal allergy: Loratadine 10 mg. 23. Dizziness/BPPV: Meclizine 25 mg t.i.d. p.r.n. PUD prophylaxis: Protonix 40 mg cont. DVT prophylaxis: Lovenox 40 mg subcutaneous. Barriers to discharge: Patient lives with herself and her dog. Independent and recently needs the walker and person support for ADL. Needs USP placement. SW consulted. PT evaluation pending. PCP: Dr. Modi. Specialist Relevant To Admission: IR, orthopedics Dr. García. Case discussed with Dr. Senior. Code Status: Full Code. Discussion needed total 25 minutes bedside. Plan discussed with: Patient, Other My Orders My Orders Orders - KASSIDY SCHAEFER RESIDENT Procedure Category Date Status Time Rt Knee With Out Con MRI 06/23/24 Logged 15:16 Alprazolam Tablet PHA 06/24/24 In Process (Xanax Tablet) 22:00 Aspirin Enteric PHA 06/25/24 In Process Coated Tablet 10:00 Bupropion Tablet PHA 06/24/24 In Process (Wellbutrin Tablet) 14:00 Carisoprodol Tablet PHA 06/24/24 In Process (Soma Tablet) 18:00 Cholecalciferol PHA 06/25/24 In Process Tablet (Vitamin D3 10:00 Cyclobenzaprine PHA 06/24/24 In Process Tablet (Flexeril 22:00 Docusate Sodium PHA 06/24/24 In Process Capsule (Colace 22:00 Meclizine Tablet PHA 06/24/24 In Process (Antivert Tablet) 10:15 Nitroglycerin PHA 06/24/24 In Process Sublingual (Ntrostat 10:15 Sucralfate Tab PHA 06/24/24 In Process (Carafate Tab) 22:00 Tramadol Hcl (Ultram) PHA 06/24/24 In Process 22:00 Amitriptyline Hcl PHA 06/25/24 In Process Tablet (Elavil Tablet) 10:00 Fluticasone Nasal PHA 06/25/24 In Process Vaughn (Flonase Vaughn) 10:00 Levothyroxine Tablet PHA 06/25/24 In Process (Synthroid Tablet) 07:00 (Nf) Pancrelipase PHA 06/24/24 Logged (Lipase-Protease- (Cre 14:00 Date of Service: Jun 24, 2024 Billing Provider: DUY SENIOR MD Common Visit Codes: [id number] INP/OBS CARE(HIGH) KASSIDY SCHAEFER Jun 24, 2024 13:01 DUY SENIOR MD Jun 24, 2024 22:27
[2024-06-24] MEDS ORDERED: VANCOMYCIN PER PHARMACY 0 MG IV SCH (13:15)
[2024-06-24] MEDS: buPROPion HCL 100 MG TAB PO SCH (13:21)
[2024-06-24] MEDS ORDERED: PANCRELIPASE PO SCH (14:00)
--- NOTE | 2024-06-24 15:40 | MEDREC ---
[facility] ASP Intervention Section I FOR[facility] ASP Intervention: Review courses of therapy (PLEASE CONSIDER DE-ESCALATION BASED ON CULTURE RESULTS (D/C VANCOMYCIN) ) SALENA WILLIAMSON PHARMACIST Jun 24, 2024 15:40
[2024-06-24] MEDS: VANCOMYCIN 500mg/100mL 100 ML IV SCH (16:01)
[2024-06-24 16:10] LABS: Potassium 3.9 mmol/L (3.5-5.1); Sodium 136 mmol/L (136-145)
[2024-06-24 16:11] LABS: Anion Gap 7 (5-15)
[2024-06-24 16:16] LABS: Glucose 100 mg/dL (74-106)
[2024-06-24 16:17] LABS: BUN/Creatinine Ratio 24.3 (10.0-20.0)
[2024-06-24 16:21] LABS: Blood Urea Nitrogen 28 mg/dL (9-23); Carbon Dioxide 32 mmol/L (20-31); Chloride 97 mmol/L (98-107)
[2024-06-24] MEDS: MORPHINE SULFATE INJ 2 MG/ml SYRG IV PRN (17:55)
[2024-06-24] MEDS ORDERED: CARISOPRODOL 350 MG TAB PO SCH (18:00)
[2024-06-24] MEDS: PANCREATIC ENZYMES 4200 UNIT CAP PO SCH (18:06)
[2024-06-24] MEDS: CYCLOBENZAPRINE HCL 10 MG TAB PO SCH (21:26)
[2024-06-24] MEDS: DOCUSATE SOD 100 MG CAP PO SCH (21:26)
[2024-06-24] MEDS: HYDROcodone-ACET 10/325MG TAB PO PRN (21:27)
[2024-06-24] MEDS: ALPRAZolam 0.5 MG TAB PO SCH (21:27)
[2024-06-24] MEDS: SUCRALFATE 1 GM TAB PO SCH (21:28)
[2024-06-24] MEDS ORDERED: traMADol HCL 50 MG TAB PO SCH (22:00)
[2024-06-25] VITALS (10 sets, daily range): BP systolic 111–137; BP diastolic 46–89; PULSE 72–93; RESP 14–20; TEMP 97.9–99.6; O2SAT 90–98
--- NOTE | 2024-06-25 06:13 | DVHOP2 ---
Operative Report - 2 Report Details Date: 06/24/24 Preop Diagnosis: Infected right knee replacement Postop Diagnosis: as above Surgeon: Garfield García MD Anesthesiologist: Gayatri Anesthesia: Regional Implant: House and nephew size 5 femur CR size 15 poly Consent: The patient was informed of the risks and benefits of the procedure. These include but are not limited to complications of anesthesia, postoperative infection, incomplete relief of symptoms, recurrence of symptoms, damage to blood vessels, nerves and tendons, deep venous thrombosis, pulmonary embolism and possible need for repeat surgery in the future. Estimated Blood Loss: 50 cc Findings: loosening of implant, purulence and necrotic tissue Indications for Surgery: Infected right knee replacement with pseuodomonas Name of Procedure Performed right knee explant, placement of antibiotic spacer, irrigation and debridement of knee Procedure Details Procedure Details: The patient was indicated for Right total knee replacement removal with spacer placement as above. Appropriate consent was obtained and verified and the patient was transferred to the operating room theatre. Appropriate anesthetic, antibioitic prophylaxis and IV access and fluid monitoring devices were given and placed. An extremity time out was performed and the tourniquet was inflated. Antibiotics were held until deep cultures were obtained. We then made a mid- line incision, incorporating the previous incision and excising one of the sinuses, which we continued to the underlying capsular tissue. We made a parapatellar incision in the capsule. We periosteally exposed the proximal tibia, excised the synovium and scar tissue and took clultures. Purulence was noted. We then subluxed the patella and brought the knee up into flexion. We used the [place] instruments to free the implant bone interface and removed the patellar, tibial and femoral implants with minimal bone loss. The femoral component was grossly loose.. We excised the remaining 2 sinuses. We completely debrided the patella, distal femur and proximal tibia and copiously irrigated with 9 Liters of fluid. We reamed the tibial and femoral canals and removed all cement. We performed as extensive release of contracted posterior tissues as we safely could periosteally. We sized the femur and chose a size 5. We cemented in place. Placed antibiotic beads with cefepime and vanco.. We impacted the spacer reduced the knee and held it with axial loading until all cement hardened. Once all cement had hardened, we brought the knee back up into flexion. We released the tourniquet and achieved hemostasis where necessary. We copiously irrigated the knee. We closed our capsular incision with a PDS style suture. We irrigated further. We closed the subcutaneous tissue with Vicryl suture and re-approximated the skin with nylon suture. We dressed the wound in a sterile dressing. We verified all lower extremity compartments were soft and compressible and that we had intact distal pulses. We wrapped the extremity in sterile Webril and kushal bandage. We took an AP and Lateral xray, which we reviewed and the patient was transferred to the recovery room in stable condition. Specimen: right knee tissue Condition Fair Disposition Still a Patient GARFIELD GARCÍA MD Jun 25, 2024 06:13
[2024-06-25] MEDS: LEVOTHYROXINE SODIUM 25 MCG TAB PO SCH (06:15)
[2024-06-25 06:19] LABS: Hematocrit 19.6 % (36.0-46.0); Mean Corpuscular Hemoglobin 25.2 pg (28.0-32.0); Mean Corpuscular Hgb Conc. 32.1 g/dL (32.0-36.0); Mean Corpuscular Volume 78.3 fL (80.0-100.0); Platelet Count (auto) 748 10^3/uL (140-450); Red Blood Cells 2.51 10^6/uL (4.0-5.20)
[2024-06-25 06:47] LABS: Hemoglobin 6.3 g/dL (12.2-16.2); White Blood Cell 31.6 10^3/uL (4.4-10.8)
[2024-06-25 06:48] LABS: Band Neutrophils % (manual) 0; Basophils % (manual) 0 (0.0-2.0); Blast Cells 0; Eosinophils % (manual) 0 (0-7); Metamyelocytes % 0; Myelocytes % 0; Promyelocytes % 0; Reactive Lymphocytes 0
[2024-06-25 07:51] LABS: Lymphocytes % (manual) 13 (10.0-50.0); Monocytes % (manual) 9 (0-12)
[2024-06-25 07:52] LABS: Hypochromia Slight
[2024-06-25 09:22] LABS: INR 1.09 (0.9-1.15); Partial Thromboplastin Time 29.9 SEC (24.5-34.5); Prothrombin Time 11.5 sec (9.3-11.8)
[2024-06-25] MEDS: CHOLECALCIFEROL (VITD3) 1,000UNIT=25mCg TAB PO SCH (09:31)
[2024-06-25] MEDS: AMITRIPTYLINE HCL 25 MG TAB PO SCH (09:32)
[2024-06-25] MEDS: ASPirin-EC 81 mg tab PO SCH (09:33)
[2024-06-25] MEDS: FLUTICASONE PROP NASAL SPR 0.05 % (50MCG) 16GM EACHNOSTRI SCH (09:47)
[2024-06-25 10:51] LABS: Hematocrit 20.6 % (36.0-46.0); Mean Corpuscular Hemoglobin 25.5 pg (28.0-32.0); Mean Corpuscular Hgb Conc. 32.2 g/dL (32.0-36.0); Red Blood Cells 2.61 10^6/uL (4.0-5.20); Red Cell Distribution Width 17.8 % (11.8-14.3)
--- NOTE | 2024-06-25 11:13 | DVHPN2 ---
Progress Note - Dictate Date Seen: Jun 24, 2024 Medical Necessity Reason Pt with a Central, PICC or Fol: No Subjective PT S/P RIGHT KNEE REPLACEMENT NOW WITH EFFUSION S/P ARTHROCENTESIS TOTAL RIGHT KNEE ARTHROPLASTY PT WITH SEVERE OSTEOARTHRITIS ORGANIC HEART DISEASE HTN CAD WITH HX OF PTCA STENT HX OF CHF HRpEF / DIASTOLIC AFIB HYPERCOAGULABLE STATE Respiratory: denies: cough, hemoptysis, orthopnea, SOB at rest, shortness of breath, SOB with exertion, stridor, wheezing, others Gastrointestinal: Reports: abdominal pain, diarrhea, melena, vomiting, denies; poor appetite, poor fluid intake; constipated, diarrhea, dysphagia, difficulty swallowing, hematemesis, melena, nausea, rectal bleeding, rectal pain, vomiting, others Genitourinary: denies: abnormal vagina bleeding, burning, dyspareunia, dysuria, flank pain, frequency, hematuria, incontinence, pain, , vagina discharge, urgency, others Neurological: denies: dizziness, fainting, headache, left sided numbness, left sided weakness, numbness, paresthesia, pre-existing deficit, right sided numbness, right sided weakness, seizure, speech problems, tingling, tremors, weakness, others Musculoskeletal: denies: back pain, gout, joint pain, joint swelling, muscle pain, muscle stiffness, neck pain, others Integumentary: Denies: bruises, change in color, change in hair/nails, dryness, laceration, lesions, lumps, rash, wounds, others Allergic/Immunocompromised: denies: Difficulty Healing, Frequent Infections, Hives, Itching, others Hematologic/Lymphatic: denies: anemia, blood clots, easy bleeding, easy bruising, swollen glands, others Endocrine: denies: excessive hunger, excessive sweating, excessive thirst, excessive urination, flushing, intolerance to cold, intolerance to heat, unexplained weight gain, unexplained weight loss, others vital signs Vital Sign Date Time Temp Pulse Resp B/P (MAP) Pulse Ox O2 Delivery O2 Flow Rate FiO2 06/25/24 09:36 111/58 06/25/24 09:31 82 06/25/24 09:30 17 06/25/24 09:00 98.4 97 98.4 06/24/24 20:00 Nasal Cannula* 2 28 Total Intake and Output 06/24/24 06/24/24 06/25/24 15:00 23:00 07:00 Intake Total 50 ml 1250 ml Output Total 0 ml 300 ml 925 ml Balance 50 ml -300 ml 325 ml medications Current Medications Medications Dose Ordered Sig/Irene Route Start Time Stop Time Status Last Admin Dose Admin Metoprolol Succinate 25 mg DAILY PO 06/20/24 10:00 06/25/24 09:31 25 MG Lisinopril 20 mg DAILY PO 06/20/24 10:00 06/25/24 09:36 20 MG Acetaminophen 650 mg Q6HP PRN PO 06/19/24 18:45 06/23/24 04:54 650 MG Cefepime HCl 50 ml @ 12.5 mls/hr DAILY@2200 IV 06/22/24 23:00 06/24/24 21:32 12.5 MLS/HR Alprazolam 0.5 mg BID PO 06/24/24 22:00 06/25/24 09:30 0.5 MG Aspirin 81 mg DAILY PO 06/25/24 10:00 06/25/24 09:33 81 MG Bupropion HCl 100 mg Q8HR PO 06/24/24 14:00 06/25/24 06:15 100 MG Carisoprodol 350 mg QPM PO 06/24/24 18:00 Hold Cholecalciferol 1,000 unit DAILY PO 06/25/24 10:00 06/25/24 09:31 1,000 UNIT Cyclobenzaprine HCl 10 mg BID PO 06/24/24 22:00 06/25/24 09:33 10 MG Docusate Sodium 100 mg BID PO 06/24/24 22:00 06/25/24 09:36 100 MG Meclizine HCl 25 mg TID PRN PO 06/24/24 10:15 Nitroglycerin 0.4 mg Q5MIN SL 06/24/24 10:15 Sucralfate 1 gm BID PO 06/24/24 22:00 06/25/24 09:33 1 GM Amitriptyline HCl 100 mg DAILY PO 06/25/24 10:00 06/25/24 09:32 100 MG Fluticasone Propionate 50 mcg DAILY EACHNOSTRI 06/25/24 10:00 06/25/24 09:47 50 MCG Levothyroxine Sodium 75 mcg QAM PO 06/25/24 07:00 06/25/24 06:15 75 MCG Proteolytic Enzymes 12,600 unit TIDWM PO 06/24/24 18:00 06/25/24 08:00 12,600 UNIT Vancomycin HCl 0 ml @ 0 mls/hr UD IV 06/24/24 13:15 Acetaminophen/ Hydrocodone Bitart 1 tab Q6HP PRN PO 06/24/24 14:30 06/25/24 06:16 1 TAB Morphine Sulfate 1 mg Q4HP PRN IV 06/24/24 14:30 06/25/24 09:30 1 MG Vancomycin HCl 100 ml @ 200 mls/hr Q24H IV 06/24/24 15:00 06/24/24 16:01 200 MLS/HR Lactated Ringer's 1,000 ml @ 100 mls/hr Q10H IV 06/25/24 10:30 objective HEENT: Head is atraumatic normocephalic, eyes PERRLA, ENT oropharynx moist and clear, neck supple, no tenderness, trachea midline, no masses no JVD. Chest: Denies chest pain, no diaphoresis, no mass adenopathy, no tenderness. Cardiac: Regular rate and rhythm, S1-S2 normal, no murmurs, no rubs or gallops. Pulmonary: No shortness of breath, lungs are clear to auscultation bilaterally, no wheezing, no rales or rhonchi. Abdomen: Soft, tender, nondistended, no masses, bowel sounds positive. Genitourinary: Denies dysuria, no urinary frequency, no hematuria. Skin: Skin warm and dry to touch no rash or lesion, no ulceration. Extremities: No clubbing, no edema, no tenderness, no varicosity. Neurologic: Grossly intact, no new focal motor deficit, no numbness or tingling. laboratory and microbiology Laboratory Tests 06/25/24 04:56 06/24/24 06:29 Test 06/24/24 06:29 Range/Units Serum Glucose 100 74-106 mg/dL Problem List SEVERE OSTEOARTHRITIS RIGHT KNEE EFFUSION LEUKOCYTOSIS ANEMIA PMH ORGANIC HEART DISEASE HTN CAD WITH HX OF PTCA STENT HX OF CHF HRpEF / DIASTOLIC AFIB HYPERCOAGULABLE STATE HYPOKALEMIA Assessment/Plan ABX CT OF KNEE ASPIRATION AND CX CORRECT HYPOKALEMIA IRON INFUSION EPOGEN ASPIRATE NOT SENT FOR CELL COUNT LARGE EFFUSION NEEDS EVACUATION SEPTIC JOINT PSEUDOMONAS/ SEPTIC JOINT Plan discussed with: Patient Critical Care Time(min): 35 ANISH DIAZ MD Jun 25, 2024 11:13
[2024-06-25 11:17] LABS: Band Neutrophils % (manual) 0; Basophils % (manual) 0 (0.0-2.0); Blast Cells 0; Eosinophils % (manual) 0 (0-7); Hemoglobin 6.7 g/dL (12.2-16.2); Metamyelocytes % 0; Myelocytes % 0; Promyelocytes % 0; Reactive Lymphocytes 0; White Blood Cell 32.4 10^3/uL (4.4-10.8)
[2024-06-25] MEDS: LACTATED RINGER'S 1,000 ML IV SCH (11:39)
[2024-06-25 12:37] LABS: Lymphocytes % (manual) 12 (10.0-50.0); Monocytes % (manual) 3 (0-12)
[2024-06-25 12:40] LABS: Stomatocytes Few
[2024-06-25 12:41] LABS: Large Platelets FEW; Platelet Estimate Marked
[2024-06-25 12:43] LABS: Platelet Estimate Markedly Increased
--- NOTE | 2024-06-25 19:39 | DVHPNRES ---
Progress Note Date Seen: Jun 25, 2024 Resident Creating Document: KASSIDY SCHAEFER RESIDENT Medical Necessity Reason Pt with a Central, PICC or Fol: No Subjective Review of Systems Review of Systems: HEENT:Normal, CVS:Normal, RESPIRATORY:Normal, GI:Normal, :Normal, MSK:Abnormal (Right knee pain, right knee swelling, painful to minimal touch, difficult to move. Status post aspiration), NEURO:Normal (Bilateral lower leg intact neurological functions touch temperature sensation and muscular functions no signs of compartment syndrome) Objective vital signs Vital Sign Date Time Temp Pulse Resp B/P (MAP) Pulse Ox O2 Delivery O2 Flow Rate FiO2 06/25/24 18:17 99.1 06/25/24 16:00 88 19 114/57 (76 90 06/24/24 20:00 Nasal Cannula* 2 28 Total Intake and Output 06/24/24 06/24/24 06/25/24 15:00 23:00 07:00 Intake Total 50 ml 1250 ml Output Total 0 ml 300 ml 925 ml Balance 50 ml -300 ml 325 ml medications Current Medications Medications Dose Ordered Sig/Irene Route Start Time Stop Time Status Last Admin Dose Admin Metoprolol Succinate 25 mg DAILY PO 06/20/24 10:00 06/25/24 09:31 25 MG Lisinopril 20 mg DAILY PO 06/20/24 10:00 06/25/24 09:36 20 MG Acetaminophen 650 mg Q6HP PRN PO 06/19/24 18:45 06/25/24 17:17 650 MG Alprazolam 0.5 mg BID PO 06/24/24 22:00 06/25/24 09:30 0.5 MG Aspirin 81 mg DAILY PO 06/25/24 10:00 06/25/24 09:33 81 MG Bupropion HCl 100 mg Q8HR PO 06/24/24 14:00 06/25/24 14:34 100 MG Carisoprodol 350 mg QPM PO 06/24/24 18:00 Hold Cholecalciferol 1,000 unit DAILY PO 06/25/24 10:00 06/25/24 09:31 1,000 UNIT Cyclobenzaprine HCl 10 mg BID PO 06/24/24 22:00 06/25/24 09:33 10 MG Docusate Sodium 100 mg BID PO 06/24/24 22:00 06/25/24 09:36 100 MG Meclizine HCl 25 mg TID PRN PO 06/24/24 10:15 Nitroglycerin 0.4 mg Q5MIN SL 06/24/24 10:15 Sucralfate 1 gm BID PO 06/24/24 22:00 06/25/24 09:33 1 GM Amitriptyline HCl 100 mg DAILY PO 06/25/24 10:00 06/25/24 09:32 100 MG Fluticasone Propionate 50 mcg DAILY EACHNOSTRI 06/25/24 10:00 06/25/24 09:47 50 MCG Levothyroxine Sodium 75 mcg QAM PO 06/25/24 07:00 06/25/24 06:15 75 MCG Proteolytic Enzymes 12,600 unit TIDWM PO 06/24/24 18:00 06/25/24 17:17 12,600 UNIT Vancomycin HCl 0 ml @ 0 mls/hr UD IV 06/24/24 13:15 Acetaminophen/ Hydrocodone Bitart 1 tab Q6HP PRN PO 06/24/24 14:30 06/25/24 16:24 1 TAB Morphine Sulfate 1 mg Q4HP PRN IV 06/24/24 14:30 06/25/24 14:35 1 MG Vancomycin HCl 100 ml @ 200 mls/hr Q24H IV 06/24/24 15:00 06/25/24 15:00 200 MLS/HR Lactated Ringer's 1,000 ml @ 100 mls/hr Q10H IV 06/25/24 10:30 06/25/24 11:39 100 MLS/HR Meropenem 50 ml @ 17 mls/hr Q8HR IV 06/25/24 22:00 UNV Examination Examination: GENERAL:Normal (At rest comfortable. Movement of right knee makes her distressed.), HEENT:Normal, NECK:Normal, LUNGS:Abnormal (Basal rales likely due to atelectasis,), CVS:Normal, ABDOMEN:Normal, MSK:Abnormal ( swollen, tenderness positive, loss of joint movement. postsurgical wound vac on) Bilateral lower leg low muscle mass. Loculated multiple collection seen 1 of them seen outside of the joint in the lower part of the thigh with 10 membrane bolus.), SKIN:Normal, NEURO:Normal laboratory and microbiology Laboratory Tests 06/25/24 09:45 06/25/24 04:56 06/24/24 06:29 Test 06/24/24 06:29 Range/Units Serum Glucose 100 74-106 mg/dL Microbiology Date/Time Source Procedure Growth Status 06/22/24 13:25 Aspirate Gram Stain - Final Complete 06/22/24 13:25 Body Fluid Culture - Final Pseudomonas aeruginosa Complete 06/19/24 19:44 Blood Blood Culture - Final NO GROWTH AFTER 5 DAYS OF INCUBATION. Complete Labs and/or images reviewed: Labs reviewed by me, Image(s) reviewed by me Problem List/Assessment/Plan Problem List/Assessment/Plan Assessment: Mrs. Louise, an 83-year-old female, presents with knee pain following a fall three months ago, resulting in intermittent swelling and multiple knee drainages. She has been unable to see her orthopedic surgeon and seeks further evaluation. She denies fever or chills. Her medical history includes hypertension, GERD, osteoarthritis, hypothyroidism, and heart failure. She has undergone knee surgery and has a history of severe osteoarthritis, organic heart disease, hypertension, coronary artery disease with PTCA stent placement, congestive heart failure with preserved ejection fraction, atrial fibrillation, and a hypercoagulable state. S/p surgery. Plan: #1. Right Septic arthritis: Pseudomonas infection. [facility]imum pain management, with home dose norco q6 and iv morphine. worsening infection with WBC very very high. start meropenam. check blood cultures. will hold PICC line. #2. Orthopedic prosthesis infection, present on admission: Last positive was on April 19, 2023. The patient has been recommended inpatient care for the last 3 months. Outpatient-[facility], fluid was taken out for therapeutic arthrocentesis. S/p surgery 06/24 on wound vac. 3. Likely osteomyelitis, given chronic infection, significantly persistently elevated ESR and CRP: 3 months of worsening infection in the joint. S/p prosthesis removal will extend antibiotics to cover osteomyelitis. Might require MRI. IV Vancomycin to continue for empiric coverage. 4. Sepsis, resolved> but pending another sepsis episode. 5. Chronic knee pain worsened over the past 3 months: Patient on [place] 10, tramadol 50 mg at home. likely will not need further meds as source removed. 6. Essential hypertension: At home, lisinopril 20 mg and hydrochlorothiazide 25 mg daily. Targeted blood pressure 140/90 or below. Blood pressure fluctuating, highest 160s. we will hold home antihypertensives for now. 7. Extensive osteoarthritis: Small and large joint extensive osteoarthritis noted. Bilateral lower limb hammertoe noted. Apart from the right knee joint, other joints are unremarkable for active foci of infection. 8. Mild malnutrition: With muscle mass loss, could be also due to disuse atrophy. Continue supportive diet and management. 9. Bilateral hammertoe: Chronic condition, no acute changes noted. Patient denies any previous history of gout. 10. BRYAN due to VMN, : Multifactorial, could be sepsis-related, baseline around 0.9. Avoid nephrotoxic agents, IV hydration, close follow-up with I&O output. 11. Anxiety/depression: Alprazolam 0.5 p.o. b.i.d. p.r.n., amitriptyline 50 mg p.o. at night, bupropion 100 mg q.8 hour. 12. Vitamin-D deficiency: At home, patient on 2000 units per day vitamin supplement. Continue. 13. Intermittent constipation: Docusate sodium 100 mg as needed. MiraLax if needed. 14. Allergic rhinitis: Patient on fluticasone. 15. Known CAD: Nitroglycerin as needed, aspirin, anti-lipids to continue. Presently denying any chest pain. 16. Hypothyroidism: Patient on levothyroxine 75 mcg, TSH amlodipine. Continue home medications. 17. Dyslipidemia: Simvastatin 40 mg daily. Can be continued outpatient at discharge. 18. GERD: Intermittent nausea, omeprazole 20 mg daily, ondansetron 4 mg daily, as needed famotidine. 19. Chronic pancreatic insufficiency: Patient is on [place] [id number] t.i.d. 20. Back pain: Cyclobenzaprine 10 mg p.o. b.i.d. 21. Reactive thrombocytosis: Moderate to severe with decreased at [id number]>700,000 improving. follow cbc with diff. 22. Known atopic disease with seasonal allergy: Loratadine 10 mg. 23. Dizziness/BPPV: Meclizine 25 mg t.i.d. p.r.n. PUD prophylaxis: Protonix 40 mg cont. DVT prophylaxis: Lovenox 40 mg subcutaneous hold due to ?bleeding. Barriers to discharge: Patient lives with herself and her dog. Independent and recently needs the walker and person support for ADL. Needs [facility] placement. SW consulted. PT evaluation pending. PCP: Dr. Modi. Specialist Relevant To Admission: IR, orthopedics Dr. García. Case discussed with Dr. Senior. Code Status: Full Code. Discussion needed total 25 minutes bedside. Plan discussed with: Patient, Other (RN) My Orders My Orders Orders - KASSIDY SCHAEFER Procedure Category Date Status Time * Branch Office Manager CONS 06/25/24 Transmitted Consult 08:58 Lactated Ringer's PHA 06/25/24 In Process 10:30 Blood Culture BLAKE 06/25/24 In Process (Pediatric) 11:55 Meropenem 1gm Ivpb PHA 06/25/24 Logged (Merrem 1gm/ Ns) 19:30 Meropenem 1gm Ivpb PHA 06/25/24 Logged (Merrem 1gm/ Ns) 22:00 Date of Service: Jun 25, 2024 Billing Provider: JOSLYN ESCOBEDO MD Common Visit Codes: [id number] INP/OBS CARE(HIGH) KASSIDY SCHAEFER RESIDENT Jun 25, 2024 19:39 JOSLYN ESCOBEDO MD Jun 26, 2024 09:17
[2024-06-25 20:28] LABS: Hematocrit 19.7 % (36.0-46.0); Mean Corpuscular Hemoglobin 24.9 pg (28.0-32.0); Mean Corpuscular Hgb Conc. 31.6 g/dL (32.0-36.0); Mean Corpuscular Volume 78.8 fL (80.0-100.0); Platelet Count (auto) 709 10^3/uL (140-450); Red Cell Distribution Width 18.2 % (11.8-14.3)
[2024-06-25] MEDS: MEROPENEM 1GM IVPB 50 ML IV ONE (20:30)
[2024-06-25 20:31] LABS: Band Neutrophils % (manual) 0; Basophils % (manual) 0 (0.0-2.0); Blast Cells 0; Eosinophils % (manual) 0 (0-7); Hemoglobin 6.2 g/dL (12.2-16.2); Metamyelocytes % 0; Myelocytes % 0; Promyelocytes % 0; Reactive Lymphocytes 0; White Blood Cell 30.4 10^3/uL (4.4-10.8)
[2024-06-25 20:51] LABS: Alanine Aminotransferase 14 U/L (7-40); Alkaline Phosphatase 84 U/L (46-116); Anion Gap 6 (5-15); Aspartate Aminotransferase 29 U/L (13-40); BUN/Creatinine Ratio 22.9 (10.0-20.0); Bilirubin, Total 0.3 mg/dL (0.2-1.0); Carbon Dioxide 31 mmol/L (20-31); Potassium 4.2 mmol/L (3.5-5.1); Total Protein 6.7 g/dL (5.7-8.2)
[2024-06-25 21:20] LABS: Albumin 3.2 g/dL (3.2-4.8); Blood Urea Nitrogen 30 mg/dL (9-23); Calcium 11.2 mg/dL (8.7-10.4); Chloride 91 mmol/L (98-107); Glucose 112 mg/dL (74-106); Sodium 128 mmol/L (136-145)
[2024-06-25 21:33] LABS: Hypochromia Slight; Lymphocytes % (manual) 14 (10.0-50.0); Monocytes % (manual) 4 (0-12); Platelet Estimate Increased
[2024-06-26] VITALS (9 sets, daily range): BP systolic 99–132; BP diastolic 44–61; PULSE 70–84; RESP 14–18; TEMP 97.8–98.9; O2SAT 92–99
[2024-06-26] MEDS: MEROPENEM 1GM IVPB 50 ML IV SCH (09:11)
[2024-06-26 09:34] LABS: Basophils # (auto) 0 10 ^3/uL (0-0.2); Basophils % (auto) 0.2 % (0.0-2.0); Eosinophils % (auto) 0.2 % (0.0-7.0); Lymphocytes # (auto) 1.7 10 ^3/uL (0.4-5.4)
[2024-06-26 09:37] LABS: Eosinophils # (auto) 0.1 10 ^3/uL (0-0.8); Hematocrit 25.1 % (36.0-46.0); Hemoglobin 8.1 g/dL (12.2-16.2); Lymphocytes % (auto) 7.5 % (10.0-50.0); Mean Corpuscular Hemoglobin 25.9 pg (28.0-32.0); Mean Corpuscular Hgb Conc. 32.4 g/dL (32.0-36.0); Monocytes # (auto) 2.4 10 ^3/uL (0-1.3); Monocytes % (auto) 10.4 % (0.0-12.0); Neutrophils # (auto) 19.1 10 ^3/uL (1.6-8.6); Neutrophils % (auto) 81.7 % (37.0-80.0); Platelet Count (auto) 710 10^3/uL (140-450); Red Blood Cells 3.14 10^6/uL (4.0-5.20); Red Cell Distribution Width 16.9 % (11.8-14.3); White Blood Cell 23.4 10^3/uL (4.4-10.8)
[2024-06-26 09:44] LABS: Platelet Count (auto) 769 10^3/uL (140-450)
[2024-06-26 09:48] LABS: Alanine Aminotransferase 13 U/L (7-40); Alkaline Phosphatase 79 U/L (46-116); Anion Gap 5 (5-15); Aspartate Aminotransferase 18 U/L (13-40); BUN/Creatinine Ratio 20.7 (10.0-20.0); Bilirubin, Total 0.4 mg/dL (0.2-1.0); Carbon Dioxide 30 mmol/L (20-31); Potassium 3.8 mmol/L (3.5-5.1); Total Protein 6.8 g/dL (5.7-8.2)
[2024-06-26 09:52] LABS: Albumin 3.2 g/dL (3.2-4.8); Blood Urea Nitrogen 25 mg/dL (9-23); Calcium 11.2 mg/dL (8.7-10.4); Chloride 95 mmol/L (98-107); Glucose 130 mg/dL (74-106); Sodium 130 mmol/L (136-145)
--- NOTE | 2024-06-26 13:22 | DVHPN2 ---
Progress Note - Dictate Date Seen: Jun 26, 2024 Medical Necessity Reason Pt with a Central, PICC or Fol: No Subjective PT S/P RIGHT KNEE REPLACEMENT NOW WITH EFFUSION S/P ARTHROCENTESIS TOTAL RIGHT KNEE ARTHROPLASTY PT WITH SEVERE OSTEOARTHRITIS ORGANIC HEART DISEASE HTN CAD WITH HX OF PTCA STENT HX OF CHF HRpEF / DIASTOLIC AFIB HYPERCOAGULABLE STATE Respiratory: denies: cough, hemoptysis, orthopnea, SOB at rest, shortness of breath, SOB with exertion, stridor, wheezing, others Gastrointestinal: Reports: abdominal pain, diarrhea, melena, vomiting, denies; poor appetite, poor fluid intake; constipated, diarrhea, dysphagia, difficulty swallowing, hematemesis, melena, nausea, rectal bleeding, rectal pain, vomiting, others Genitourinary: denies: abnormal vagina bleeding, burning, dyspareunia, dysuria, flank pain, frequency, hematuria, incontinence, pain, , vagina discharge, urgency, others Neurological: denies: dizziness, fainting, headache, left sided numbness, left sided weakness, numbness, paresthesia, pre-existing deficit, right sided numbness, right sided weakness, seizure, speech problems, tingling, tremors, weakness, others Musculoskeletal: denies: back pain, gout, joint pain, joint swelling, muscle pain, muscle stiffness, neck pain, others Integumentary: Denies: bruises, change in color, change in hair/nails, dryness, laceration, lesions, lumps, rash, wounds, others Allergic/Immunocompromised: denies: Difficulty Healing, Frequent Infections, Hives, Itching, others Hematologic/Lymphatic: denies: anemia, blood clots, easy bleeding, easy bruising, swollen glands, others Endocrine: denies: excessive hunger, excessive sweating, excessive thirst, excessive urination, flushing, intolerance to cold, intolerance to heat, unexplained weight gain, unexplained weight loss, others vital signs Vital Sign Date Time Temp Pulse Resp B/P (MAP) Pulse Ox O2 Delivery O2 Flow Rate FiO2 06/26/24 13:00 97.9 70 16 117/56 (76) 98 97.9 06/26/24 08:00 Nasal Cannula* 2 28 Total Intake and Output 06/25/24 06/25/24 06/26/24 15:00 23:00 07:00 Intake Total 700 ml 950 ml Output Total 500 ml 1150 ml Balance 200 ml -200 ml medications Current Medications Medications Dose Ordered Sig/Irene Route Start Time Stop Time Status Last Admin Dose Admin Metoprolol Succinate 25 mg DAILY PO 06/20/24 10:00 06/26/24 09:10 25 MG Lisinopril 20 mg DAILY PO 06/20/24 10:00 06/26/24 09:11 20 MG Acetaminophen 650 mg Q6HP PRN PO 06/19/24 18:45 06/25/24 17:17 650 MG Alprazolam 0.5 mg BID PO 06/24/24 22:00 06/26/24 09:11 0.5 MG Aspirin 81 mg DAILY PO 06/25/24 10:00 06/26/24 09:09 81 MG Bupropion HCl 100 mg Q8HR PO 06/24/24 14:00 06/26/24 05:21 100 MG Carisoprodol 350 mg QPM PO 06/24/24 18:00 Hold Cholecalciferol 1,000 unit DAILY PO 06/25/24 10:00 06/26/24 09:11 1,000 UNIT Cyclobenzaprine HCl 10 mg BID PO 06/24/24 22:00 06/26/24 09:08 10 MG Docusate Sodium 100 mg BID PO 06/24/24 22:00 06/26/24 09:16 100 MG Meclizine HCl 25 mg TID PRN PO 06/24/24 10:15 Nitroglycerin 0.4 mg Q5MIN SL 06/24/24 10:15 Sucralfate 1 gm BID PO 06/24/24 22:00 06/26/24 09:07 1 GM Amitriptyline HCl 100 mg DAILY PO 06/25/24 10:00 06/26/24 09:08 100 MG Fluticasone Propionate 50 mcg DAILY EACHNOSTRI 06/25/24 10:00 06/26/24 09:07 50 MCG Levothyroxine Sodium 75 mcg QAM PO 06/25/24 07:00 06/26/24 05:21 75 MCG Proteolytic Enzymes 12,600 unit TIDWM PO 06/24/24 18:00 06/26/24 09:12 12,600 UNIT Vancomycin HCl 0 ml @ 0 mls/hr UD IV 06/24/24 13:15 Acetaminophen/ Hydrocodone Bitart 1 tab Q6HP PRN PO 06/24/24 14:30 06/26/24 05:45 1 TAB Morphine Sulfate 1 mg Q4HP PRN IV 06/24/24 14:30 06/25/24 14:35 1 MG Vancomycin HCl 100 ml @ 200 mls/hr Q24H IV 06/24/24 15:00 06/25/24 15:00 200 MLS/HR Lactated Ringer's 1,000 ml @ 100 mls/hr Q10H IV 06/25/24 10:30 06/26/24 05:25 100 MLS/HR Meropenem 50 ml @ 17 mls/hr Q12H IV 06/26/24 10:00 06/26/24 09:11 17 MLS/HR objective HEENT: Head is atraumatic normocephalic, eyes PERRLA, ENT oropharynx moist and clear, neck supple, no tenderness, trachea midline, no masses no JVD. Chest: Denies chest pain, no diaphoresis, no mass adenopathy, no tenderness. Cardiac: Regular rate and rhythm, S1-S2 normal, no murmurs, no rubs or gallops. Pulmonary: No shortness of breath, lungs are clear to auscultation bilaterally, no wheezing, no rales or rhonchi. Abdomen: Soft, tender, nondistended, no masses, bowel sounds positive. Genitourinary: Denies dysuria, no urinary frequency, no hematuria. Skin: Skin warm and dry to touch no rash or lesion, no ulceration. Extremities: No clubbing, no edema, no tenderness, no varicosity. Neurologic: Grossly intact, no new focal motor deficit, no numbness or tingling. laboratory and microbiology Laboratory Tests 06/26/24 08:44 Test 06/26/24 08:44 Range/Units Serum Glucose 130 H 74-106 mg/dL Problem List SEVERE OSTEOARTHRITIS RIGHT KNEE EFFUSION LEUKOCYTOSIS ANEMIA PMH ORGANIC HEART DISEASE HTN CAD WITH HX OF PTCA STENT HX OF CHF HRpEF / DIASTOLIC AFIB HYPERCOAGULABLE STATE HYPOKALEMIA Assessment/Plan ABX CT OF KNEE ASPIRATION AND CX CORRECT HYPOKALEMIA IRON INFUSION EPOGEN ASPIRATE NOT SENT FOR CELL COUNT LARGE EFFUSION NEEDS EVACUATION SEPTIC JOINT PSEUDOMONAS/ SEPTIC JOINT S/P OPERATIVE INTERVENTION FOR EXPLANTATION OF ALL KNEE HARDWARE S/P ANTIBIOTIC SPACERS FOLLOWING EXPLANTATION AND DEBRIDEMENT RECOMMEND DISCONTINUATION OF VANCO SINCE MEROPENEM HAS ADEQUATE COVERAGE NO GRAM POSITIVE ORGANISMS SEEN VANCO SHOULD BE CONSIDERED ONLY IF THERE IS FAILURE OF THERAPY WITH MEROPENEM Plan discussed with: Patient ANISH IDAZ MD Jun 26, 2024 13:22
--- NOTE | 2024-06-26 14:04 | DVHPN2 ---
Progress Note Date Seen: Jun 26, 2024 Medical Necessity Reason Pt with a Central, PICC or Fol: No Subjective Patient reports: No new complaints, Feels better Objective vital signs Vital Sign Date Time Temp Pulse Resp B/P (MAP) Pulse Ox O2 Delivery O2 Flow Rate FiO2 06/26/24 13:00 97.9 70 16 117/56 (76) 98 97.9 06/26/24 08:00 Nasal Cannula* 2 28 Total Intake and Output 06/25/24 06/25/24 06/26/24 15:00 23:00 07:00 Intake Total 700 ml 950 ml Output Total 500 ml 1150 ml Balance 200 ml -200 ml medications Current Medications Medications Dose Ordered Sig/Irene Route Start Time Stop Time Status Last Admin Dose Admin Metoprolol Succinate 25 mg DAILY PO 06/20/24 10:00 06/26/24 09:10 25 MG Lisinopril 20 mg DAILY PO 06/20/24 10:00 06/26/24 09:11 20 MG Acetaminophen 650 mg Q6HP PRN PO 06/19/24 18:45 06/25/24 17:17 650 MG Alprazolam 0.5 mg BID PO 06/24/24 22:00 06/26/24 09:11 0.5 MG Aspirin 81 mg DAILY PO 06/25/24 10:00 06/26/24 09:09 81 MG Bupropion HCl 100 mg Q8HR PO 06/24/24 14:00 06/26/24 13:41 100 MG Carisoprodol 350 mg QPM PO 06/24/24 18:00 Hold Cholecalciferol 1,000 unit DAILY PO 06/25/24 10:00 06/26/24 09:11 1,000 UNIT Cyclobenzaprine HCl 10 mg BID PO 06/24/24 22:00 06/26/24 09:08 10 MG Docusate Sodium 100 mg BID PO 06/24/24 22:00 06/26/24 09:16 100 MG Meclizine HCl 25 mg TID PRN PO 06/24/24 10:15 Nitroglycerin 0.4 mg Q5MIN SL 06/24/24 10:15 Sucralfate 1 gm BID PO 06/24/24 22:00 06/26/24 09:07 1 GM Amitriptyline HCl 100 mg DAILY PO 06/25/24 10:00 06/26/24 09:08 100 MG Fluticasone Propionate 50 mcg DAILY EACHNOSTRI 06/25/24 10:00 06/26/24 09:07 50 MCG Levothyroxine Sodium 75 mcg QAM PO 06/25/24 07:00 06/26/24 05:21 75 MCG Proteolytic Enzymes 12,600 unit TIDWM PO 06/24/24 18:00 06/26/24 13:43 12,600 UNIT Vancomycin HCl 0 ml @ 0 mls/hr UD IV 06/24/24 13:15 Acetaminophen/ Hydrocodone Bitart 1 tab Q6HP PRN PO 06/24/24 14:30 06/26/24 13:42 1 TAB Morphine Sulfate 1 mg Q4HP PRN IV 06/24/24 14:30 06/25/24 14:35 1 MG Vancomycin HCl 100 ml @ 200 mls/hr Q24H IV 06/24/24 15:00 06/25/24 15:00 200 MLS/HR Lactated Ringer's 1,000 ml @ 100 mls/hr Q10H IV 06/25/24 10:30 06/26/24 05:25 100 MLS/HR Meropenem 50 ml @ 17 mls/hr Q12H IV 06/26/24 10:00 06/26/24 09:11 17 MLS/HR Examination: GENERAL:Normal, MSK:Normal laboratory and microbiology Laboratory Tests 06/26/24 08:44 Test 06/26/24 08:44 Range/Units Serum Glucose 130 H 74-106 mg/dL Microbiology Date/Time Source Procedure Growth Status 06/25/24 13:03 Blood Blood Culture - Preliminary NO GROWTH AFTER 24 HOURS OF INCUBATION. Resulted 06/22/24 13:25 Aspirate Gram Stain - Final Complete 06/22/24 13:25 Body Fluid Culture - Final Pseudomonas aeruginosa Complete Problem List/Assessment/Plan Problem List/Assessment/Plan 83 yo F sp right knee explant/antibiotic spacer 1. WBAT in knee immobilizer 2. IV abx -- needs correction 3. pain control 4. prevena wound vac x 1 week followed by sterile dressing Plan discussed with: Patient My Orders My Orders Orders - HERBERT FARRAR MD Procedure Category Date Status Time R Knee 2v Xray XY 06/26/24 Logged 06:01 HERBERT FARRAR MD Jun 26, 2024 14:04
--- NOTE | 2024-06-26 14:25 | DVH ---
Right knee radiograph CLINICAL INDICATION: sp revision knee TECHNIQUE: 3 radiographic views of the right knee were obtained. Comparison: XY R KNEE 3V XRAY on DOS: 06/19/24, XY R KNEE 3V XRAY on DOS: 04/15/23, R KNEE 3V XRAY on DOS: 03/26/22 FINDINGS: Post right knee arthroplasty. There is no evidence of acute fracture or dislocation. The visualized joint space is well maintained. The alignment is anatomical. Small volume gas and fluid in the joint space IMPRESSION: Expected findings post right knee arthroplasty.
[2024-06-26] MEDS: VANCOMYCIN 500mg/100mL 100 ML IV SCH (16:23)
--- NOTE | 2024-06-26 16:54 | DVHPNRES ---
Progress Note Date Seen: Jun 26, 2024 Resident Creating Document: KASSIDY SCHAEFER RESIDENT Medical Necessity Reason Pt with a Central, PICC or Fol: No Subjective Review of Systems HEENT:Normal, CVS:Normal, RESPIRATORY:Normal, GI:Normal, :Normal, MSK:Abnormal (Right knee pain, right knee swelling, painful to minimal touch, difficult to move. Status post aspiration), NEURO:Normal (Bilateral lower leg intact neurological functions touch temperature sensation and muscular functions no signs of compartment syndrome) Overnight low-grade fever. Post Tylenol no further complications. Patient received blood transfusion last night. Hemodynamically stable otherwise. Patient reports: No new complaints Changes from previous H/P or p: Changes Objective vital signs Vital Sign Date Time Temp Pulse Resp B/P (MAP) Pulse Ox O2 Delivery O2 Flow Rate FiO2 06/26/24 13:00 97.9 70 16 117/56 (76) 98 97.9 06/26/24 08:00 Nasal Cannula* 2 28 Total Intake and Output 06/25/24 06/25/24 06/26/24 15:00 23:00 07:00 Intake Total 700 ml 950 ml Output Total 500 ml 1150 ml Balance 200 ml -200 ml medications Current Medications Medications Dose Ordered Sig/Irene Route Start Time Stop Time Status Last Admin Dose Admin Metoprolol Succinate 25 mg DAILY PO 06/20/24 10:00 06/26/24 09:10 25 MG Lisinopril 20 mg DAILY PO 06/20/24 10:00 06/26/24 09:11 20 MG Acetaminophen 650 mg Q6HP PRN PO 06/19/24 18:45 06/25/24 17:17 650 MG Alprazolam 0.5 mg BID PO 06/24/24 22:00 06/26/24 09:11 0.5 MG Aspirin 81 mg DAILY PO 06/25/24 10:00 06/26/24 09:09 81 MG Bupropion HCl 100 mg Q8HR PO 06/24/24 14:00 06/26/24 13:41 100 MG Carisoprodol 350 mg QPM PO 06/24/24 18:00 Hold Cholecalciferol 1,000 unit DAILY PO 06/25/24 10:00 06/26/24 09:11 1,000 UNIT Cyclobenzaprine HCl 10 mg BID PO 06/24/24 22:00 06/26/24 09:08 10 MG Docusate Sodium 100 mg BID PO 06/24/24 22:00 06/26/24 09:16 100 MG Meclizine HCl 25 mg TID PRN PO 06/24/24 10:15 Nitroglycerin 0.4 mg Q5MIN SL 06/24/24 10:15 Sucralfate 1 gm BID PO 06/24/24 22:00 06/26/24 09:07 1 GM Amitriptyline HCl 100 mg DAILY PO 06/25/24 10:00 06/26/24 09:08 100 MG Fluticasone Propionate 50 mcg DAILY EACHNOSTRI 06/25/24 10:00 06/26/24 09:07 50 MCG Levothyroxine Sodium 75 mcg QAM PO 06/25/24 07:00 06/26/24 05:21 75 MCG Proteolytic Enzymes 12,600 unit TIDWM PO 06/24/24 18:00 06/26/24 13:43 12,600 UNIT Vancomycin HCl 0 ml @ 0 mls/hr UD IV 06/24/24 13:15 Acetaminophen/ Hydrocodone Bitart 1 tab Q6HP PRN PO 06/24/24 14:30 06/26/24 13:42 1 TAB Morphine Sulfate 1 mg Q4HP PRN IV 06/24/24 14:30 06/25/24 14:35 1 MG Lactated Ringer's 1,000 ml @ 100 mls/hr Q10H IV 06/25/24 10:30 06/26/24 05:25 100 MLS/HR Cefepime HCl 50 ml @ 12.5 mls/hr Q12HR IV 06/26/24 22:00 UNV Vancomycin HCl 100 ml @ 200 mls/hr Q24H IV 06/26/24 16:00 06/26/24 16:23 200 MLS/HR Examination GENERAL:Normal (At rest comfortable. Movement of right knee makes her distressed.), HEENT:Normal, NECK:Normal, LUNGS:Abnormal (Basal rales likely due to atelectasis,), CVS:Normal, ABDOMEN:Normal, MSK:Abnormal ( swollen, tenderness positive, loss of joint movement. postsurgical wound vac on) Bilateral lower leg low muscle mass. Loculated multiple collection seen 1 of them seen outside of the joint in the lower part of the thigh with 10 membrane bolus.), SKIN:Normal, NEURO:Normal laboratory and microbiology Laboratory Tests 06/26/24 08:44 Test 06/26/24 08:44 Range/Units Serum Glucose 130 H 74-106 mg/dL Microbiology Date/Time Source Procedure Growth Status 06/25/24 13:03 Blood Blood Culture - Preliminary NO GROWTH AFTER 24 HOURS OF INCUBATION. Resulted 06/22/24 13:25 Aspirate Gram Stain - Final Complete 06/22/24 13:25 Body Fluid Culture - Final Pseudomonas aeruginosa Complete Labs and/or images reviewed: Labs reviewed by me, Image(s) reviewed by me Problem List/Assessment/Plan Problem List/Assessment/Plan Assessment: Mrs. Louise, an 83-year-old female, presents with knee pain following a fall three months ago, resulting in intermittent swelling and multiple knee drainages. She has been unable to see her orthopedic surgeon and seeks further evaluation. She denies fever or chills. Her medical history includes hypertension, GERD, osteoarthritis, hypothyroidism, and heart failure. She has undergone knee surgery and has a history of severe osteoarthritis, organic heart disease, hypertension, coronary artery disease with PTCA stent placement, congestive heart failure with preserved ejection fraction, atrial fibrillation, and a hypercoagulable state. S/p surgery. Plan: #1. Right Septic arthritis: Pseudomonas infection. Optimum pain management, with home dose norco q6 and iv morphine. Status post IV meropenem fever, chills, white count improved. Change to cefepime IV. PICC line placement order in place. #2. Orthopedic prosthesis infection, present on admission: Last positive was on April 19, 2023. The patient has been recommended inpatient care for the last 3 months. Outpatient-mccarthy, fluid was taken out for therapeutic arthrocentesis. S/p surgery 06/24 on wound vac. Continued VAC. Appreciate Orthopedics input weight-bearing as tolerated with knee brace. 3. Likely osteomyelitis, given chronic infection, significantly persistently elevated ESR and CRP: 3 months of worsening infection in the joint. S/p prosthesis removal will extend antibiotics to cover osteomyelitis. Might require MRI. IV Vancomycin to continue for empiric coverage tells ruled out. 4. Sepsis, resolved. 5. Chronic knee pain worsened over the past 3 months: Patient on [place] 10, tramadol 50 mg at home. likely will not need further meds as source removed. 6. Essential hypertension: At home, lisinopril 20 mg and hydrochlorothiazide 25 mg daily. Targeted blood pressure 140/90 or below. Blood pressure fluctuating, highest 160s. we will hold home antihypertensives for now. 7. Extensive osteoarthritis: Small and large joint extensive osteoarthritis noted. Bilateral lower limb hammertoe noted. Apart from the right knee joint, other joints are unremarkable for active foci of infection. 8. Mild malnutrition: With muscle mass loss, could be also due to disuse atrophy. Continue supportive diet and management. 9. Bilateral hammertoe: Chronic condition, no acute changes noted. Patient denies any previous history of gout. 10. BRYAN due to VMN, : Multifactorial, could be sepsis-related, baseline around 0.9. Avoid nephrotoxic agents, IV hydration, close follow-up with I&O output. 11. Anxiety/depression: Alprazolam 0.5 p.o. b.i.d. p.r.n., amitriptyline 50 mg p.o. at night, bupropion 100 mg q.8 hour. 12. Vitamin-D deficiency: At home, patient on 2000 units per day vitamin supplement. Continue. 13. Intermittent constipation: Docusate sodium 100 mg as needed. MiraLax if needed. 14. Allergic rhinitis: Patient on fluticasone. 15. Known CAD: Nitroglycerin as needed, aspirin, anti-lipids to continue. Presently denying any chest pain. 16. Hypothyroidism: Patient on levothyroxine 75 mcg, TSH amlodipine. Continue home medications. 17. Dyslipidemia: Simvastatin 40 mg daily. Can be continued outpatient at discharge. 18. GERD: Intermittent nausea, omeprazole 20 mg daily, ondansetron 4 mg daily, as needed famotidine. 19. Chronic pancreatic insufficiency: Patient is on [place] [id number] t.i.d. 20. Back pain: Cyclobenzaprine 10 mg p.o. b.i.d. 21. Reactive thrombocytosis: Moderate to severe with decreased at [id number],000 improving. follow cbc with diff. continues to improve with subsiding infection. 22. Known atopic disease with seasonal allergy: Loratadine 10 mg. 23. Dizziness/BPPV: Meclizine 25 mg t.i.d. p.r.n. PUD prophylaxis: Protonix 40 mg cont. DVT prophylaxis: Lovenox 40 mg subcutaneous hold due to ?bleeding. SCD only Barriers to discharge: Patient lives with herself and her dog. Independent and recently needs the walker and person support for ADL. Needs SNF home placement. Agreed with PT input of SNF placement. PICC line placement pending. SW consulted. Specialist Relevant To Admission: IR, orthopedics Dr. García. Case discussed with Dr. Senior. Code Status: Full Code. Discussion needed total 25 minutes bedside. Plan discussed with: Patient, Other My Orders My Orders Orders - KASSIDY SCHAEFER RESIDENT Procedure Category Date Status Time Rt Knee With Out Con MRI 06/25/24 Logged 19:29 Pharmacy ROSSI 06/25/24 In Process Clarification: 19:55 * Picc Line Consult CONS 06/27/24 Transmitted 04:00 Vancomycin 500mg/100ml PHA 06/26/24 In Process 16:00 Cefepime 2gm/50ml Ns PHA 06/27/24 In Process (Maxipime 2gm/50ml) 10:00 * Waiter CONS 06/26/24 Transmitted Consult Cefepime 2gm/50ml Ns PHA 06/26/24 In Process (Maxipime 2gm/50ml) 17:00 Date of Service: Jun 26, 2024 Billing Provider: JOSLYN ESCOBEDO MD Common Visit Codes: [id number] INP/OBS CARE(HIGH) KASSIDY SCHAEFER RESIDENT Jun 26, 2024 16:54 JOSLYN ESCOBEDO MD Jul 03, 2024 09:06
[2024-06-26] MEDS: CEFEPIME 2GM/50ML NS 50 ML IV ONE (18:29)
[2024-06-27] VITALS (8 sets, daily range): BP systolic 108–142; BP diastolic 58–105; PULSE 69–84; RESP 17–20; TEMP 97.3–98; O2SAT 95–98
[2024-06-27] MEDS: CEFEPIME 2GM/50ML NS 50 ML IV SCH (09:08)
--- NOTE | 2024-06-27 13:09 | DVHPNRES ---
Progress Note Date Seen: Jun 27, 2024 Resident Creating Document: KASSIDY SCHAEFER RESIDENT Medical Necessity Reason Pt with a Central, PICC or Fol: No Subjective Review of Systems Overnight patient afebrile, hemodynamically stable, 2 L of nasal cannula oxygen. Comfortable, IV line out, pending PICC line placement. Negative blood culture, expected findings post right knee arthroplasty no concerning changes. No distress, IV antibiotics vancomycin and cefepime to continue to continue. Patient was given knee immobilizer with weight-bearing as tolerated, 1 week of wound VAC to continue Objective vital signs Vital Sign Date Time Temp Pulse Resp B/P (MAP) Pulse Ox O2 Delivery O2 Flow Rate FiO2 06/27/24 09:18 142/105 06/27/24 09:12 79 06/27/24 05:00 98.0 20 96 98.0 06/26/24 20:00 Nasal Cannula* 2 28 Total Intake and Output 06/26/24 06/26/24 06/27/24 15:00 23:00 07:00 Intake Total 200 ml 700 ml 240 ml Output Total 500 ml 900 ml Balance 200 ml 200 ml -660 ml medications Current Medications Medications Dose Ordered Sig/Irene Route Start Time Stop Time Status Last Admin Dose Admin Metoprolol Succinate 25 mg DAILY PO 06/20/24 10:00 06/27/24 09:12 25 MG Lisinopril 20 mg DAILY PO 06/20/24 10:00 06/27/24 09:18 20 MG Acetaminophen 650 mg Q6HP PRN PO 06/19/24 18:45 06/25/24 17:17 650 MG Alprazolam 0.5 mg BID PO 06/24/24 22:00 06/26/24 21:32 0.5 MG Aspirin 81 mg DAILY PO 06/25/24 10:00 06/27/24 09:13 81 MG Bupropion HCl 100 mg Q8HR PO 06/24/24 14:00 06/27/24 05:36 100 MG Carisoprodol 350 mg QPM PO 06/24/24 18:00 Hold Cholecalciferol 1,000 unit DAILY PO 06/25/24 10:00 06/27/24 09:10 1,000 UNIT Cyclobenzaprine HCl 10 mg BID PO 06/24/24 22:00 06/27/24 09:10 10 MG Docusate Sodium 100 mg BID PO 06/24/24 22:00 06/27/24 09:14 100 MG Meclizine HCl 25 mg TID PRN PO 06/24/24 10:15 Nitroglycerin 0.4 mg Q5MIN SL 06/24/24 10:15 Sucralfate 1 gm BID PO 06/24/24 22:00 06/27/24 09:13 1 GM Amitriptyline HCl 100 mg DAILY PO 06/25/24 10:00 06/27/24 09:09 100 MG Fluticasone Propionate 50 mcg DAILY EACHNOSTRI 06/25/24 10:00 06/27/24 09:21 50 MCG Levothyroxine Sodium 75 mcg QAM PO 06/25/24 07:00 06/27/24 05:36 75 MCG Proteolytic Enzymes 12,600 unit TIDWM PO 06/24/24 18:00 06/27/24 09:22 12,600 UNIT Vancomycin HCl 0 ml @ 0 mls/hr UD IV 06/24/24 13:15 Acetaminophen/ Hydrocodone Bitart 1 tab Q6HP PRN PO 06/24/24 14:30 06/27/24 03:55 1 TAB Morphine Sulfate 1 mg Q4HP PRN IV 06/24/24 14:30 06/25/24 14:35 1 MG Lactated Ringer's 1,000 ml @ 100 mls/hr Q10H IV 06/25/24 10:30 06/27/24 03:57 100 MLS/HR Cefepime HCl 50 ml @ 12.5 mls/hr DAILY IV 06/27/24 10:00 06/27/24 09:08 12.5 MLS/HR Vancomycin HCl 100 ml @ 200 mls/hr Q24H IV 06/26/24 16:00 06/26/24 16:23 200 MLS/HR Examination GENERAL:Normal (At rest comfortable. Movement of right knee makes her distressed.), HEENT:Normal, NECK:Normal, LUNGS:Abnormal (Basal rales likely due to atelectasis,), CVS:Normal, ABDOMEN:Normal, MSK:Abnormal ( swollen, tenderness positive, loss of joint movement. postsurgical wound vac on) Bilateral lower leg low muscle mass. Loculated multiple collection seen 1 of them seen outside of the joint in the lower part of the thigh with 10 membrane bolus.), SKIN:Normal, NEURO:Normal laboratory and microbiology Laboratory Tests 06/26/24 08:44 Test 06/26/24 08:44 Range/Units Serum Glucose 130 H 74-106 mg/dL Microbiology Date/Time Source Procedure Growth Status 06/25/24 13:03 Blood Blood Culture - Preliminary NO GROWTH AFTER 24 HOURS OF INCUBATION. Resulted 06/22/24 13:25 Aspirate Gram Stain - Final Complete 06/22/24 13:25 Body Fluid Culture - Final Pseudomonas aeruginosa Complete Labs and/or images reviewed: Labs reviewed by me, Image(s) reviewed by me Problem List/Assessment/Plan Problem List/Assessment/Plan Hospitalization summary/ Assesment: Mrs. Louise, an 83-year-old female, presents with knee pain following a fall three months ago, resulting in intermittent swelling and multiple knee drainages. She has been unable to see her orthopedic surgeon and seeks further evaluation. She denies fever or chills. Her medical history includes hypertension, GERD, osteoarthritis, hypothyroidism, and heart failure. She has undergone knee surgery and has a history of severe osteoarthritis, organic heart disease, hypertension, coronary artery disease with PTCA stent placement, congestive heart failure with preserved ejection fraction, atrial fibrillation, and a hypercoagulable state. S/p surgery. Plan: #1. Right Septic arthritis: Pseudomonas infection. Optimum pain management, with home dose norco q6 and iv morphine. Status post IV meropenem fever, chills, white count improved. Change to cefepime IV. PICC line placement order in place. #2. Orthopedic prosthesis infection, present on admission: Last positive was on April 19, 2023. The patient has been recommended inpatient care for the last 3 months. Outpatient-mccarthy, fluid was taken out for therapeutic arthrocentesis. S/p surgery 06/24 on wound vac. Continued VAC. Appreciate Orthopedics input weight-bearing as tolerated with knee brace. 3. Likely osteomyelitis, given chronic infection, significantly persistently elevated ESR and CRP: 3 months of worsening infection in the joint. S/p prosthesis removal will extend antibiotics to cover osteomyelitis. Might require MRI. IV Vancomycin to continue for empiric coverage tells ruled out. 4. Sepsis, resolved. 5. Chronic knee pain worsened over the past 3 months: Patient on [place] 10, tramadol 50 mg at home. likely will not need further meds as source removed. 6. Essential hypertension: At home, lisinopril 20 mg and hydrochlorothiazide 25 mg daily. Targeted blood pressure 140/90 or below. Blood pressure fluctuating, highest 160s. we will hold home antihypertensives for now. 7. Extensive osteoarthritis: Small and large joint extensive osteoarthritis noted. Bilateral lower limb hammertoe noted. Apart from the right knee joint, other joints are unremarkable for active foci of infection. 8. Mild malnutrition: With muscle mass loss, could be also due to disuse atrophy. Continue supportive diet and management. 9. Bilateral hammertoe: Chronic condition, no acute changes noted. Patient denies any previous history of gout. 10. BRYAN due to VMN, : Multifactorial, could be sepsis-related, baseline around 0.9. Avoid nephrotoxic agents, IV hydration, close follow-up with I&O output. 11. Anxiety/depression: Alprazolam 0.5 p.o. b.i.d. p.r.n., amitriptyline 50 mg p.o. at night, bupropion 100 mg q.8 hour. 12. Vitamin-D deficiency: At home, patient on 2000 units per day vitamin supplement. Continue. 13. Intermittent constipation: Docusate sodium 100 mg as needed. MiraLax if needed. 14. Allergic rhinitis: Patient on fluticasone. 15. Known CAD: Nitroglycerin as needed, aspirin, anti-lipids to continue. Presently denying any chest pain. 16. Hypothyroidism: Patient on levothyroxine 75 mcg, TSH amlodipine. Continue home medications. 17. Dyslipidemia: Simvastatin 40 mg daily. Can be continued outpatient at discharge. 18. GERD: Intermittent nausea, omeprazole 20 mg daily, ondansetron 4 mg daily, as needed famotidine. 19. Chronic pancreatic insufficiency: Patient [place] on [place] [id number] t.i.d. 20. Back pain: Cyclobenzaprine 10 mg p.o. b.i.d. 21. Reactive thrombocytosis: Moderate to severe with decreased at [id number]>700,000 improving. follow cbc with diff. continues to improve with subsiding infection. 22. Known atopic disease with seasonal allergy: Loratadine 10 mg. 23. Dizziness/BPPV: Meclizine 25 mg t.i.d. p.r.n. Diet: Cardiac diet GI prophylaxis: protonix 40mg DVT prophylaxis: Lovenox 40 mg subcutaneous hold due to ?bleeding. SCD only>>at discharge will discharge on eliquis Bowel regimen: Barriers to discharge: Patient lives with herself and her dog. Independent and recently needs the walker and person support for ADL. Needs SNF home placement. Agreed with PT input of SNF placement. PICC line placement pending. SW consulted. PCP: Dr. Modi Specialist Relevent To Admission: Orthopedics, Infectious Disease at discharge Patient care and plan discussed with Dr. Solis Disposition: Patient remains in TELE>>MED SURGERY Plan discussed with: Patient, Other (Primary team, RN) My Orders My Orders Orders - KASSIDY SCHAEFER Procedure Category Date Status Time * Picc Line Consult CONS 06/27/24 Transmitted 04:00 Vancomycin 500mg/100ml PHA 06/26/24 In Process 16:00 Cefepime 2gm/50ml Ns PHA 06/27/24 In Process (Maxipime 2gm/50ml) 10:00 * Swimming Instructor CONS 06/26/24 Transmitted Consult Complete Blood Count LAB 06/27/24 Logged 13:04 Comprehensive LAB 06/27/24 Logged Metabolic Panel 13:04 Date of Service: Jun 27, 2024 Billing Provider: JOSLYN ESCOBEDO MD Common Visit Codes: [id number] INP/OBS CARE(HIGH) KASSIDY SCHEAFER Jun 27, 2024 13:09 JOSLYN ESCOBEDO MD Jul 03, 2024 09:09
[2024-06-27 14:47] LABS: Basophils # (auto) 0 10 ^3/uL (0-0.2); Eosinophils # (auto) 0.1 10 ^3/uL (0-0.8); Eosinophils % (auto) 0.5 % (0.0-7.0); Hematocrit 26.7 % (36.0-46.0); Lymphocytes # (auto) 1.5 10 ^3/uL (0.4-5.4)
[2024-06-27 14:49] LABS: Basophils % (auto) 0.3 % (0.0-2.0); Hemoglobin 8.5 g/dL (12.2-16.2); Lymphocytes % (auto) 8.4 % (10.0-50.0); Monocytes % (auto) 10.9 % (0.0-12.0); Neutrophils # (auto) 14.4 10 ^3/uL (1.6-8.6); Neutrophils % (auto) 79.9 % (37.0-80.0); Red Blood Cells 3.29 10^6/uL (4.0-5.20)
[2024-06-27 14:56] LABS: Platelet Count (auto) 842 10^3/uL (140-450)
[2024-06-27 14:57] LABS: Platelet Estimate Markedly Increased
[2024-06-27 15:00] LABS: Alanine Aminotransferase 12 U/L (7-40); Albumin 3.5 g/dL (3.2-4.8); Alkaline Phosphatase 81 U/L (46-116); Anion Gap 4 (5-15); Aspartate Aminotransferase 12 U/L (13-40); BUN/Creatinine Ratio 24.5 (10.0-20.0); Bilirubin, Total 0.3 mg/dL (0.2-1.0); Blood Urea Nitrogen 25 mg/dL (9-23); Calcium 11.4 mg/dL (8.7-10.4); Carbon Dioxide 31 mmol/L (20-31); Chloride 100 mmol/L (98-107); Glucose 103 mg/dL (74-106); Potassium 3.8 mmol/L (3.5-5.1); Sodium 135 mmol/L (136-145); Total Protein 7.3 g/dL (5.7-8.2)
[2024-06-28] VITALS (9 sets, daily range): BP systolic 142–169; BP diastolic 58–77; PULSE 65–86; RESP 17–20; TEMP 97.5–99.7; O2SAT 91–99
[2024-06-28 12:11] LABS: INR 1.08 (0.9-1.15); Partial Thromboplastin Time 27.3 SEC (24.5-34.5); Prothrombin Time 11.4 sec (9.3-11.8)
--- NOTE | 2024-06-28 23:07 | DVHPN2 ---
Subjective Update 06/28. Working with PT, pain control with p.r.n. analgesia, continuing IV antibiotics with plan for continued IV antibiotics at rehab/sniff. Reviewed: H&P Changes from previous H/P or p: No Changes General: Per HPI Objective Vitals Vital Signs Date Time Temp Pulse Resp B/P (MAP) Pulse Ox O2 Delivery O2 Flow Rate FiO2 06/28/24 21:00 99.7 82 20 154/77 (102) 99 99.7 06/28/24 08:00 Nasal Cannula* 2 28 Intake/Output Intake and Output 06/28/24 07:00 Intake Total 545 ml Output Total 950 ml Balance -405 ml Intake Oral 545 ml Output Urine Total 950 ml Exam GEN: Appears weak, no acute distress, movement causes pain and distress. HEENT: NC/AT; MMM. CV: RRR, no m/r/g. LUNGS: CTAB, no w/r/c. ABD: Soft, NT/ND, NBS, no masses or organomegaly. EXT: swollen, tenderness positive, loss of joint movement. postsurgical wound vac on. NEURO: Ambulating with no limitations. No focal deficits. General Appearance: Alert, Oriented X3, Cooperative, mild distress Lungs: Clear to auscultation Cardiovascular: Regular rate, Normal S1, Normal S2 Abdomen: Normal bowel sounds, Soft, No tenderness Musculoskeletal: Other (rt knee significan suprapatellar effusion/ and also fluid below knee) Extremities: No edema Neuro: Normal gait, Normal speech, Strength at 5/5 X4 ext, Sensation intact, C ranial nerves 3-12 NL, Reflexes 2+ Skin: Intact Psych/Mental Status: Mental status NL Medications Current Medications Medications Dose Ordered Sig/Irene Route Start Time Stop Time Status Last Admin Dose Admin Metoprolol Succinate 25 mg DAILY PO 06/20/24 10:00 06/28/24 11:31 25 MG Lisinopril 20 mg DAILY PO 06/20/24 10:00 06/28/24 11:32 20 MG Acetaminophen 650 mg Q6HP PRN PO 06/19/24 18:45 06/25/24 17:17 650 MG Alprazolam 0.5 mg BID PO 06/24/24 22:00 06/28/24 21:22 0.5 MG Aspirin 81 mg DAILY PO 06/25/24 10:00 06/28/24 11:33 81 MG Bupropion HCl 100 mg Q8HR PO 06/24/24 14:00 06/28/24 21:21 100 MG Carisoprodol 350 mg QPM PO 06/24/24 18:00 Hold Cholecalciferol 1,000 unit DAILY PO 06/25/24 10:00 06/28/24 11:33 1,000 UNIT Cyclobenzaprine HCl 10 mg BID PO 06/24/24 22:00 06/28/24 21:22 10 MG Docusate Sodium 100 mg BID PO 06/24/24 22:00 06/28/24 21:23 100 MG Meclizine HCl 25 mg TID PRN PO 06/24/24 10:15 Nitroglycerin 0.4 mg Q5MIN SL 06/24/24 10:15 Sucralfate 1 gm BID PO 06/24/24 22:00 06/28/24 21:23 1 GM Amitriptyline HCl 100 mg DAILY PO 06/25/24 10:00 06/28/24 11:31 100 MG Fluticasone Propionate 50 mcg DAILY EACHNOSTRI 06/25/24 10:00 06/28/24 11:38 50 MCG Levothyroxine Sodium 75 mcg QAM PO 06/25/24 07:00 06/28/24 05:58 75 MCG Proteolytic Enzymes 12,600 unit TIDWM PO 06/24/24 18:00 06/28/24 18:29 12,600 UNIT Vancomycin HCl 0 ml @ 0 mls/hr UD IV 06/24/24 13:15 Acetaminophen/ Hydrocodone Bitart 1 tab Q6HP PRN PO 06/24/24 14:30 06/28/24 17:30 1 TAB Morphine Sulfate 1 mg Q4HP PRN IV 06/24/24 14:30 06/28/24 11:42 1 MG Lactated Ringer's 1,000 ml @ 100 mls/hr Q10H IV 06/25/24 10:30 06/28/24 11:38 100 MLS/HR Cefepime HCl 50 ml @ 12.5 mls/hr DAILY IV 06/27/24 10:00 06/28/24 11:30 12.5 MLS/HR Vancomycin HCl 100 ml @ 200 mls/hr Q24H IV 06/26/24 16:00 06/28/24 16:16 200 MLS/HR Laboratory Results Laboratory Tests 06/27/24 13:50 Coagulation Test 06/28/24 11:20 Prothrombin Time 11.4 sec (9.3-11.8) Prothrombin Time INR 1.08 (0.9-1.15) Activated Partial Thromboplast Time 27.3 SEC (24.5-34.5) Urinalysis Test 06/24/24 07:00 Urine Color Light-yellow (Yellow) Urine Clarity Clear (Clear) Urine pH 6.5 (5.0-9.0) Urine Specific [place] 1.016 (1.001-1.035) Urine Protein 1+ (Negative) H Urine Ketones Negative (Negative) Urine Blood 1+ /uL (Negative) H Urine Nitrite Negative (Negative) Urine Bilirubin Negative (Negative) Urine Urobilinogen Normal mg/dL (Negative) Urine Leukocyte Esterase 2+ /uL (Negative) Urine RBC 8 /hpf (0 - 4) Urine WBC 16 /hpf (0 - 5) Urine Squamous Epithelial Cells Few /hpf (<5) Urine Bacteria None seen /hpf (None Seen) Urine Glucose Normal mg/dL (Normal) Microbiology Microbiology Date/Time Source Procedure Growth Status 06/27/24 22:40 Nose MRSA Screen - Final Complete 06/25/24 13:03 Blood Blood Culture - Preliminary NO GROWTH AFTER 72 HOURS OF INCUBATION. Resulted 06/22/24 13:25 Aspirate Gram Stain - Final Complete 06/22/24 13:25 Body Fluid Culture - Final Pseudomonas aeruginosa Complete Labs and/or images reviewed: Labs reviewed by me, Image(s) reviewed by me Assessment/Plan Assessment/Plan Update 06/28. Working with PT, pain control with p.r.n. analgesia, continuing IV antibiotics with plan for continued IV antibiotics at rehab/sniff. Need to decide on final lactose with pharmacy tomorrow. 1. Right Septic arthritis: Pseudomonas infection. [facility]imum pain management, with home dose norco q6 and iv morphine. Status post IV meropenem fever, chills, white count improved. Change to cefepime IV, started vanc. PICC line placement 06/28 2. Orthopedic prosthesis infection, present on admission: Last positive was on April 19, 2023. The patient has been recommended inpatient care for the last 3 months. Outpatient-[facility], fluid was taken out for therapeutic arthrocentesis. S/p surgery 06/24 on wound vac. Continued VAC. Appreciate Orthopedics input weight-bearing as tolerated with knee brace. 3. Likely osteomyelitis, given chronic infection, significantly persistently elevated ESR and CRP: 3 months of worsening infection in the joint. S/p prosthesis removal will extend antibiotics to cover osteomyelitis. Might require MRI. IV Vancomycin to continue for empiric coverage tells ruled out. 4. Sepsis, resolved. 5. Chronic knee pain worsened over the past 3 months: Patient on [place] 10, tramadol 50 mg at home. likely will not need further meds as source removed. 6. Essential hypertension: At home, lisinopril 20 mg and hydrochlorothiazide 25 mg daily. Targeted blood pressure 140/90 or below. Blood pressure fluctuating, highest 160s. we will hold home antihypertensives for now. 7. Extensive osteoarthritis: Small and large joint extensive osteoarthritis noted. Bilateral lower limb hammertoe noted. Apart from the right knee joint, other joints are unremarkable for active foci of infection. 8. Mild malnutrition: With muscle mass loss, could be also due to disuse atrophy. Continue supportive diet and management. 9. Bilateral hammertoe: Chronic condition, no acute changes noted. Patient denies any previous history of gout. 10. BRYAN due to VMN, : Multifactorial, could be sepsis-related, baseline around 0.9. Avoid nephrotoxic agents, IV hydration, close follow-up with I&O output. 11. Anxiety/depression: Alprazolam 0.5 p.o. b.i.d. p.r.n., amitriptyline 50 mg p.o. at night, bupropion 100 mg q.8 hour. 12. Vitamin-D deficiency: At home, patient on 2000 units per day vitamin supplement. Continue. 13. Intermittent constipation: Docusate sodium 100 mg as needed. MiraLax if needed. 14. Allergic rhinitis: Patient on fluticasone. 15. Known CAD: Nitroglycerin as needed, aspirin, anti-lipids to continue. Presently denying any chest pain. 16. Hypothyroidism: Patient on levothyroxine 75 mcg, TSH amlodipine. Continue home medications. 17. Dyslipidemia: Simvastatin 40 mg daily. Can be continued outpatient at discharge. 18. GERD: Intermittent nausea, omeprazole 20 mg daily, ondansetron 4 mg daily, as needed famotidine. 19. Chronic pancreatic insufficiency: Patient is on Creon [id number] t.i.d. 20. Back pain: Cyclobenzaprine 10 mg p.o. b.i.d. 21. Reactive thrombocytosis: Moderate to severe with decreased at [id number]>700,000 improving. follow cbc with diff. continues to improve with subsiding infection. 22. Known atopic disease with seasonal allergy: Loratadine 10 mg. 23. Dizziness/BPPV: Meclizine 25 mg t.i.d. p.r.n. Diet: Cardiac diet GI prophylaxis: protonix 40mg DVT prophylaxis: SCD only>>at discharge will discharge on eliquis Bowel regimen: Barriers to discharge: Patient lives with herself and her dog. Independent and recently needs the walker and person support for ADL. Needs SNF home placement. Agreed with PT input of SNF placement. PICC line placement 06/28. SW consulted , pending placement. PCP: Dr. Modi Specialist Relevent To Admission: Orthopedics, Infectious Disease at discharge Plan discussed with: Patient Date of Service: Jun 28, 2024 Billing Provider: JOSLYN ESCOBEDO MD Common Visit Codes: 60665-[id number] INP/OBS CARE(HIGH) JOSLYN ESCOBEDO MD Jun 28, 2024 23:07
[2024-06-29] VITALS (7 sets, daily range): BP systolic 137–172; BP diastolic 60–78; PULSE 62–99; RESP 16–20; TEMP 97.8–98.6; O2SAT 94–100
[2024-06-29 06:15] LABS: Basophils % (auto) 0.4 % (0.0-2.0); Eosinophils # (auto) 0.2 10 ^3/uL (0-0.8); Red Blood Cells 2.92 10^6/uL (4.0-5.20)
[2024-06-29 06:23] LABS: Basophils # (auto) 0 10 ^3/uL (0-0.2); Eosinophils % (auto) 1.2 % (0.0-7.0); Hematocrit 23.6 % (36.0-46.0); Hemoglobin 7.4 g/dL (12.2-16.2); Lymphocytes # (auto) 2.2 10 ^3/uL (0.4-5.4); Lymphocytes % (auto) 17.7 % (10.0-50.0); Mean Corpuscular Hemoglobin 25.4 pg (28.0-32.0); Mean Corpuscular Hgb Conc. 31.4 g/dL (32.0-36.0); Mean Corpuscular Volume 80.9 fL (80.0-100.0); Monocytes # (auto) 2.2 10 ^3/uL (0-1.3); Monocytes % (auto) 17.7 % (0.0-12.0); Neutrophils # (auto) 7.7 10 ^3/uL (1.6-8.6); Nucleated Red Blood Cells % 0.1 %; Red Cell Distribution Width 16.7 % (11.8-14.3); White Blood Cell 12.3 10^3/uL (4.4-10.8)
[2024-06-29 06:32] LABS: Platelet Count (auto) 784 10^3/uL (140-450)
[2024-06-29 06:50] LABS: Alanine Aminotransferase < 9 U/L (7-40); Albumin 2.9 g/dL (3.2-4.8); Alkaline Phosphatase 68 U/L (46-116); Anion Gap 6 (5-15); Aspartate Aminotransferase 14 U/L (13-40); BUN/Creatinine Ratio 24.7 (10.0-20.0); Bilirubin, Total 0.3 mg/dL (0.2-1.0); Blood Urea Nitrogen 22 mg/dL (9-23); Calcium 10.4 mg/dL (8.7-10.4); Carbon Dioxide 28 mmol/L (20-31); Chloride 100 mmol/L (98-107); Glucose 93 mg/dL (74-106); Potassium 3.5 mmol/L (3.5-5.1); Sodium 134 mmol/L (136-145); Total Protein 6.3 g/dL (5.7-8.2)
--- NOTE | 2024-06-29 07:58 | DVHDSRES ---
Discharge Summary Date of Admission Resident Creating Document: KASSIDY SCHAEFER RESIDENT Jun 19, 2024 at 18:40 Date of Discharge: Jun 29, 2024 Admitting Diagnosis Septic Arthritis of Right Knee with prosthesis Labs/Diagnostic Data: Laboratory Results Test 06/29/24 04:24 06/28/24 11:20 06/27/24 13:50 06/27/24 09:07 White Blood Count 12.3 10^3/uL (4.4-10.8) Red Blood Count 2.92 10^6/uL (4.0-5.20) Hemoglobin 7.4 g/dL (12.2-16.2) Hematocrit 23.6 % (36.0-46.0) Mean Corpuscular Volume 80.9 fL (80.0-100.0) Mean Corpuscular Hemoglobin 25.4 pg (28.0-32.0) Mean Corpuscular Hemoglobin Concent 31.4 g/dL (32.0-36.0) Red Cell Distribution Width 16.7 % (11.8-14.3) Platelet Count 784 10^3/uL (140-450) Mean Platelet Volume 5.7 fL (6.9-10.8) Neutrophils (%) (Auto) 63.0 % (37.0-80.0) Lymphocytes (%) (Auto) 17.7 % (10.0-50.0) Monocytes (%) (Auto) 17.7 % (0.0-12.0) Eosinophils (%) (Auto) 1.2 % (0.0-7.0) Basophils (%) (Auto) 0.4 % (0.0-2.0) Neutrophils # (Auto) 7.7 10 ^3/uL (1.6-8.6) Lymphocytes # (Auto) 2.2 10 ^3/uL (0.4-5.4) Monocytes # (Auto) 2.2 10 ^3/uL (0-1.3) Eosinophils # (Auto) 0.2 10 ^3/uL (0-0.8) Basophils # (Auto) 0 10 ^3/uL (0-0.2) Nucleated Red Blood Cells 0.1 % Sodium Level 134 mmol/L (136-145) Potassium Level 3.5 mmol/L (3.5-5.1) Chloride Level 100 mmol/L (98-107) Carbon Dioxide Level 28 mmol/L (20-31) Anion Gap 6 (5-15) Blood Urea Nitrogen 22 mg/dL (9-23) Creatinine 0.89 mg/dL (0.550-1.02) Glomerular Filtration Rate Calc 63 mL/min (>90) BUN/Creatinine Ratio 24.7 (10.0-20.0) Serum Glucose 93 mg/dL (74-106) Calcium Level 10.4 mg/dL (8.7-10.4) Total Bilirubin 0.3 mg/dL (0.2-1.0) Aspartate Amino Transferase (AST) 14 U/L (13-40) Alanine Aminotransferase (ALT) < 9 U/L (7-40) Alkaline Phosphatase 68 U/L (46-116) Total Protein 6.3 g/dL (5.7-8.2) Albumin 2.9 g/dL (3.2-4.8) Prothrombin Time 11.4 sec (9.3-11.8) Prothrombin Time INR 1.08 (0.9-1.15) Activated Partial Thromboplast Time 27.3 SEC (24.5-34.5) Platelet Estimate Markedly increased POC Glucose 109 mg/dl (70-106) Test 06/26/24 15:20 06/25/24 20:16 06/25/24 09:45 06/24/24 07:00 Random Vancomycin Level 13.5 ug/mL (5-10) Differential Total Cells Counted 100.0 (100) Neutrophils % (Manual) 82 (37.0-80.0) Band Neutrophils % (Manual) 0 Lymphocytes % (Manual) 14 (10.0-50.0) Monocytes % (Manual) 4 (0-12) Eosinophils % (Manual) 0 (0-7) Basophils % (Manual) 0 (0.0-2.0) Metamyelocytes % (manual) 0 Myelocytes % (Manual) 0 Promyelocytes % (Manual) 0 Blast Cells % (Manual) 0 Reactive Lymphocytes 0 Hypochromasia (manual) Slight Microcytosis Slight Large Platelets Few Stomatocytes Few Urine Color Light-yellow (Yellow) Urine Clarity Clear (Clear) Urine pH 6.5 (5.0-9.0) Urine Specific [place] 1.016 (1.001-1.035) Urine Protein 1+ (Negative) Urine Ketones Negative (Negative) Urine Blood 1+ /uL (Negative) Urine Nitrite Negative (Negative) Urine Bilirubin Negative (Negative) Urine Urobilinogen Normal mg/dL (Negative) Urine Leukocyte Esterase 2+ /uL (Negative) Urine RBC 8 /hpf (0 - 4) Urine WBC 16 /hpf (0 - 5) Urine Squamous Epithelial Cells Few /hpf (<5) Urine Bacteria None seen /hpf (None Seen) Urine Glucose Normal mg/dL (Normal) Test 06/23/24 13:18 06/22/24 04:47 06/21/24 04:49 06/19/24 15:20 Vancomycin Level Trough 10.7 ug/mL (5-10) Erythrocyte Sedimentation Rate 104 mm/hr (0-20) Iron Level 25 ug/dL (50-170) C-Reactive Protein High Sensitivity 14.18 mg/dL (<1.0) Vitamin B12 Level 1197 pg/mL (211-911) Lactic Acid Level 0.7 mmol/L (0.4-2.0) B-Type Natriuretic Peptide 382.66 pg/mL (0-100) Other Laboratory Tests 06/29/24 04:24 Brief Hx & Hospital Course: Hospitalization summary: Mrs. Louise, an 83-year-old female, history of severe osteoarthritis, organic heart disease, hypertension, coronary artery disease with PTCA stent placement, congestive heart failure with preserved ejection fraction, atrial fibrillation, and a hypercoagulable state, presents with knee pain following a fall three months ago, resulting in intermittent swelling and multiple knee drainages. Found to have right knee svetlana prosthesis septic arthritis with Pseudomonas growth. Processes removal, bone filler placement, beads placement, wound VAC/Prevana x1 week. Patient is put on PICC line and sent SNF with 6 weeks of IV cefepime for extensive physiotherapy. Patient will be followed outpatient by Orthopedic surgery Dr. García and establish care with Infectious Disease outpatient as needed. Medical conditions treated in hospital: Right Septic arthritis, Pseudomonas infection. cefepime IV. PICC line x 6 weeks. Orthopedic prosthesis infection, present on admission S/p surgery 06/24 on wound vac. Continued VAC. Follow up Orthopedics input weight-bearing as tolerated with knee brace. Osteomyelitis, ruled out. Sepsis, resolved. Severe, Osteoarthritis Chronic Right knee pain Essential hypertension: At home, lisinopril 20 mg and hydrochlorothiazide 25 mg daily. Targeted blood pressure 140/90 or below. Extensive osteoarthritis Mild malnutrition: Diet consultation, Continue supportive diet and management. Bilateral hammertoe, Chronic condition. BRYAN due to VMN, resolved. Anxiety/depression Vitamin-D deficiency on 2000 units per day vitamin supplement. Intermittent constipation: Docusate sodium 100 mg as needed. MiraLax if needed. Allergic rhinitis, on fluticasone. Stable coronary artery disease CAD: Nitroglycerin as needed, aspirin, anti- lipids to continue. Presently denying any chest pain. Hypothyroidism: Patient on levothyroxine 75 mcg/daily Dyslipidemia: Simvastatin 40 mg daily, continue. GERD, 20 mg daily, ondansetron 4 mg daily, as needed famotidine. Chronic pancreatic insufficiency: Patient is on [place] [id number] t.i.d. Back pain: Cyclobenzaprine 10 mg p.o. b.i.d. Reactive thrombocytosis: Moderate to severe, improving. Known atopic disease with seasonal allergy: Loratadine 10 mg. Dizziness/BPPV: Meclizine 25 mg t.i.d. p.r.n. DVT prophylaxis: Eliquis 5 bid x 2 weeks Patient care and plan discussed with Dr. Solis. Discharge planning needed total 37 minutes of detailed discussion. Patient agreeable with the plan. Condition at Discharge: Fair Final Diagnosis/Problems List as above Discharge Disposition: Long-Term Facility Discharge Instruct/Medications Diet: Cardiac 2g Na,low cholest Activity: See Comment Activity comment: weight bearing as tolerated on Rt knee, with brace. Follow Up/Referral: Visit PCP Dr. Modi in 1-2 weeks of discharge. Please follow up with Orthopedics Establish care with Infectious Disease outpatient [facility] to discuss further continuation of antibiotics/need of oral antibiotics Discharge Statement: "Patient was advised to return to the ER or call 911 if any headaches, dizziness, shortness of breath, chest pain, abdominal pain, bleeding, fevers, or worsening of medical condition. Patient was counseled about treatment plan, medications, possible side effects, patientverbalized understanding. All questions were answered to the best of my ability. This discharge took greater then 30 minutes in planning, reviewing documentation, counseling the patient, and discussing with other team members." ASSESSMENT ASSESSMENT Assessment as above KASSIDY SCHAEFER RESIDENT Jun 29, 2024 07:58
[2024-06-29] MEDS: amLODIPine BESYLATE 5 MG TAB PO ONE (11:00)
--- NOTE | 2024-06-29 13:30 | DVHPN2 ---
Progress Note - Dictate Date Seen: Jun 29, 2024 Medical Necessity Reason Pt with a Central, PICC or Fol: No Subjective PT S/P RIGHT KNEE REPLACEMENT NOW WITH EFFUSION S/P ARTHROCENTESIS TOTAL RIGHT KNEE ARTHROPLASTY PT WITH SEVERE OSTEOARTHRITIS ORGANIC HEART DISEASE HTN CAD WITH HX OF PTCA STENT HX OF CHF HRpEF / DIASTOLIC AFIB HYPERCOAGULABLE STATE Respiratory: denies: cough, hemoptysis, orthopnea, SOB at rest, shortness of breath, SOB with exertion, stridor, wheezing, others Gastrointestinal: Reports: abdominal pain, diarrhea, melena, vomiting, denies; poor appetite, poor fluid intake; constipated, diarrhea, dysphagia, difficulty swallowing, hematemesis, melena, nausea, rectal bleeding, rectal pain, vomiting, others Genitourinary: denies: abnormal vagina bleeding, burning, dyspareunia, dysuria, flank pain, frequency, hematuria, incontinence, pain, , vagina discharge, urgency, others Neurological: denies: dizziness, fainting, headache, left sided numbness, left sided weakness, numbness, paresthesia, pre-existing deficit, right sided numbness, right sided weakness, seizure, speech problems, tingling, tremors, weakness, others Musculoskeletal: denies: back pain, gout, joint pain, joint swelling, muscle pain, muscle stiffness, neck pain, others Integumentary: Denies: bruises, change in color, change in hair/nails, dryness, laceration, lesions, lumps, rash, wounds, others Allergic/Immunocompromised: denies: Difficulty Healing, Frequent Infections, Hives, Itching, others Hematologic/Lymphatic: denies: anemia, blood clots, easy bleeding, easy bruising, swollen glands, others Endocrine: denies: excessive hunger, excessive sweating, excessive thirst, excessive urination, flushing, intolerance to cold, intolerance to heat, unexplained weight gain, unexplained weight loss, others vital signs Vital Sign Date Time Temp Pulse Resp B/P (MAP) Pulse Ox O2 Delivery O2 Flow Rate FiO2 06/29/24 13:22 98.6 77 16 153/70 (97) 94 98.6 06/28/24 20:00 Nasal Cannula* 2 28 Total Intake and Output 06/28/24 06/28/24 06/29/24 15:00 23:00 07:00 Intake Total 50 ml 600 ml 1850 ml Output Total 500 ml Balance 50 ml 100 ml 1850 ml medications Current Medications Medications Dose Ordered Sig/Irene Route Start Time Stop Time Status Last Admin Dose Admin Metoprolol Succinate 25 mg DAILY PO 06/20/24 10:00 06/29/24 10:33 25 MG Lisinopril 20 mg DAILY PO 06/20/24 10:00 06/29/24 10:34 20 MG Acetaminophen 650 mg Q6HP PRN PO 06/19/24 18:45 06/25/24 17:17 650 MG Alprazolam 0.5 mg BID PO 06/24/24 22:00 06/29/24 10:36 0.5 MG Aspirin 81 mg DAILY PO 06/25/24 10:00 06/29/24 11:09 81 MG Bupropion HCl 100 mg Q8HR PO 06/24/24 14:00 06/29/24 06:03 100 MG Carisoprodol 350 mg QPM PO 06/24/24 18:00 Hold Cholecalciferol 1,000 unit DAILY PO 06/25/24 10:00 06/29/24 10:36 1,000 UNIT Cyclobenzaprine HCl 10 mg BID PO 06/24/24 22:00 06/29/24 10:34 10 MG Docusate Sodium 100 mg BID PO 06/24/24 22:00 06/29/24 10:34 100 MG Meclizine HCl 25 mg TID PRN PO 06/24/24 10:15 Nitroglycerin 0.4 mg Q5MIN SL 06/24/24 10:15 Sucralfate 1 gm BID PO 06/24/24 22:00 06/29/24 10:23 1 GM Amitriptyline HCl 100 mg DAILY PO 06/25/24 10:00 06/29/24 10:23 100 MG Fluticasone Propionate 50 mcg DAILY EACHNOSTRI 06/25/24 10:00 06/29/24 10:37 50 MCG Levothyroxine Sodium 75 mcg QAM PO 06/25/24 07:00 06/29/24 06:03 75 MCG Proteolytic Enzymes 12,600 unit TIDWM PO 06/24/24 18:00 06/29/24 10:16 12,600 UNIT Vancomycin HCl 0 ml @ 0 mls/hr UD IV 06/24/24 13:15 Acetaminophen/ Hydrocodone Bitart 1 tab Q6HP PRN PO 06/24/24 14:30 06/28/24 23:31 1 TAB Morphine Sulfate 1 mg Q4HP PRN IV 06/24/24 14:30 06/28/24 11:42 1 MG Lactated Ringer's 1,000 ml @ 100 mls/hr Q10H IV 06/25/24 10:30 06/29/24 03:10 100 MLS/HR Cefepime HCl 50 ml @ 12.5 mls/hr DAILY IV 06/27/24 10:00 06/29/24 10:37 12.5 MLS/HR Vancomycin HCl 100 ml @ 200 mls/hr Q24H IV 06/26/24 16:00 06/28/24 16:16 200 MLS/HR Apixaban 2.5 mg BID PO 06/29/24 22:00 07/11/24 21:59 Amlodipine Besylate 5 mg DAILY PO 06/30/24 10:00 objective HEENT: Head is atraumatic normocephalic, eyes PERRLA, ENT oropharynx moist and clear, neck supple, no tenderness, trachea midline, no masses no JVD. Chest: Denies chest pain, no diaphoresis, no mass adenopathy, no tenderness. Cardiac: Regular rate and rhythm, S1-S2 normal, no murmurs, no rubs or gallops. Pulmonary: No shortness of breath, lungs are clear to auscultation bilaterally, no wheezing, no rales or rhonchi. Abdomen: Soft, tender, nondistended, no masses, bowel sounds positive. Genitourinary: Denies dysuria, no urinary frequency, no hematuria. Skin: Skin warm and dry to touch no rash or lesion, no ulceration. Extremities: No clubbing, no edema, no tenderness, no varicosity. Neurologic: Grossly intact, no new focal motor deficit, no numbness or tingling. laboratory and microbiology Laboratory Tests 06/29/24 04:24 Test 06/29/24 04:24 Range/Units Serum Glucose 93 74-106 mg/dL Problem List SEVERE OSTEOARTHRITIS RIGHT KNEE EFFUSION LEUKOCYTOSIS ANEMIA PMH ORGANIC HEART DISEASE HTN CAD WITH HX OF PTCA STENT HX OF CHF HRpEF / DIASTOLIC AFIB HYPERCOAGULABLE STATE HYPOKALEMIA Assessment/Plan ABX CT OF KNEE ASPIRATION AND CX CORRECT HYPOKALEMIA IRON INFUSION EPOGEN ASPIRATE NOT SENT FOR CELL COUNT LARGE EFFUSION NEEDS EVACUATION SEPTIC JOINT PSEUDOMONAS/ SEPTIC JOINT S/P OPERATIVE INTERVENTION FOR EXPLANTATION OF ALL KNEE HARDWARE S/P ANTIBIOTIC SPACERS FOLLOWING EXPLANTATION AND DEBRIDEMENT RECOMMEND DISCONTINUATION OF VANCO SINCE MEROPEN[employer] HAS ADEQUATE COVERAGE NO GRAM POSITIVE ORGANISMS SEEN VANCO SHOULD BE CONSIDERED ONLY IF THERE IS FAILURE OF THERAPY WITH MEROPENEM LEUKOCYTOSIS TRENDING DOWN DC VANCO NO EVIDENCE FOR STAPH Plan discussed with: Patient Critical Care Time(min): 35 ANISH DIAZ MD Jun 29, 2024 13:30
[2024-06-29] MEDS: LIDOCAINE 1% (LOCAL ANESTH.) PF 5ml SDV ID ONE (14:33)
--- NOTE | 2024-06-29 16:16 | DVHPNRES ---
Progress Note Date Seen: Jun 29, 2024 Resident Creating Document: KASSIDY SCHAEFER RESIDENT Medical Necessity Reason Pt with a Central, PICC or Fol: No Medical Necessity Reason Patient is doing well, bilateral hearing loss patient had bilateral hearing aids, battery is not working, needs battery replacement and further fine tuning for better hearing. Pain well controlled, leg swelling and redness much improved patient on brace and wound VAC. Subjective Patient reports: No new complaints, Feels better Objective vital signs Vital Sign Date Time Temp Pulse Resp B/P (MAP) Pulse Ox O2 Delivery O2 Flow Rate FiO2 06/29/24 13:22 98.6 77 16 153/70 (97) 94 98.6 06/28/24 20:00 Nasal Cannula* 2 28 Total Intake and Output 06/28/24 06/28/24 06/29/24 15:00 23:00 07:00 Intake Total 50 ml 600 ml 1850 ml Output Total 500 ml Balance 50 ml 100 ml 1850 ml medications Current Medications Medications Dose Ordered Sig/Irene Route Start Time Stop Time Status Last Admin Dose Admin Metoprolol Succinate 25 mg DAILY PO 06/20/24 10:00 06/29/24 10:33 25 MG Lisinopril 20 mg DAILY PO 06/20/24 10:00 06/29/24 10:34 20 MG Acetaminophen 650 mg Q6HP PRN PO 06/19/24 18:45 06/25/24 17:17 650 MG Alprazolam 0.5 mg BID PO 06/24/24 22:00 06/29/24 10:36 0.5 MG Aspirin 81 mg DAILY PO 06/25/24 10:00 06/29/24 11:09 81 MG Bupropion HCl 100 mg Q8HR PO 06/24/24 14:00 06/29/24 14:20 100 MG Carisoprodol 350 mg QPM PO 06/24/24 18:00 Hold Cholecalciferol 1,000 unit DAILY PO 06/25/24 10:00 06/29/24 10:36 1,000 UNIT Cyclobenzaprine HCl 10 mg BID PO 06/24/24 22:00 06/29/24 10:34 10 MG Docusate Sodium 100 mg BID PO 06/24/24 22:00 06/29/24 10:34 100 MG Meclizine HCl 25 mg TID PRN PO 06/24/24 10:15 Nitroglycerin 0.4 mg Q5MIN SL 06/24/24 10:15 Sucralfate 1 gm BID PO 06/24/24 22:00 06/29/24 10:23 1 GM Amitriptyline HCl 100 mg DAILY PO 06/25/24 10:00 06/29/24 10:23 100 MG Fluticasone Propionate 50 mcg DAILY EACHNOSTRI 06/25/24 10:00 06/29/24 10:37 50 MCG Levothyroxine Sodium 75 mcg QAM PO 06/25/24 07:00 06/29/24 06:03 75 MCG Proteolytic Enzymes 12,600 unit TIDWM PO 06/24/24 18:00 06/29/24 14:20 12,600 UNIT Acetaminophen/ Hydrocodone Bitart 1 tab Q6HP PRN PO 06/24/24 14:30 06/29/24 14:27 1 TAB Morphine Sulfate 1 mg Q4HP PRN IV 06/24/24 14:30 06/28/24 11:42 1 MG Lactated Ringer's 1,000 ml @ 100 mls/hr Q10H IV 06/25/24 10:30 06/29/24 14:36 100 MLS/HR Cefepime HCl 50 ml @ 12.5 mls/hr DAILY IV 06/27/24 10:00 06/29/24 10:37 12.5 MLS/HR Apixaban 2.5 mg BID PO 06/29/24 22:00 07/11/24 21:59 Amlodipine Besylate 5 mg DAILY PO 06/30/24 10:00 Sodium Chloride 10 ml QSHIFT@10,22 IV 06/29/24 22:00 Examination: GENERAL:Normal (Done), HEENT:Normal, NECK:Normal, LUNGS:Normal (Basal rales likely due to atelectasis, incentive spirometry to continue), CVS:Normal, ABDOMEN:Normal, MSK:Abnormal (Right knee surgery, post surgical site clean unaffected, on wound VAC, on knee brace, peripheral vasculature, and neuromuscular function intact.), SKIN:Normal, NEURO:Normal (Bilateral hard of hearing , gross strength intact), :Normal laboratory and microbiology Laboratory Tests 06/29/24 04:24 Test 06/29/24 04:24 Range/Units Serum Glucose 93 74-106 mg/dL Microbiology Date/Time Source Procedure Growth Status 06/27/24 22:40 Nose MRSA Screen - Final Complete 06/25/24 13:03 Blood Blood Culture - Preliminary NO GROWTH AFTER 72 HOURS OF INCUBATION. Resulted 06/22/24 13:25 Aspirate Gram Stain - Final Complete 06/22/24 13:25 Body Fluid Culture - Final Pseudomonas aeruginosa Complete Labs and/or images reviewed: Labs reviewed by me, Image(s) reviewed by me Problem List/Assessment/Plan Problem List/Assessment/Plan Hospitalization summary: Mrs. Louise, an 83-year-old female, history of severe osteoarthritis, organic heart disease, hypertension, coronary artery disease with PTCA stent placement, congestive heart failure with preserved ejection fraction, atrial fibrillation, and a hypercoagulable state, presents with knee pain following a fall three months ago, resulting in intermittent swelling and multiple knee drainages. Found to have right knee svetlana prosthesis septic arthritis with Pseudomonas growth. Processes removal, bone filler placement, beads placement, wound VAC/Prevana x1 week. Patient is put on PICC line and sent SNF with 6 weeks of IV cefepime for extensive physiotherapy. Patient will be followed outpatient by Orthopedic surgery Dr. García and establish care with Infectious Disease outpatient as needed. Medical conditions treated in hospital: #Right Septic arthritis, Pseudomonas infection. cefepime IV. PICC line x 6 weeks. #Orthopedic prosthesis infection, present on admission S/p surgery 06/24 on wound vac. Continued VAC. Follow up Orthopedics input weight-bearing as tolerated with knee brace. #Osteomyelitis, ruled out. #Sepsis, resolved. #Severe, Osteoarthritis #Chronic Right knee pain #Essential hypertension: At home, lisinopril 20 mg and hydrochlorothiazide 25 mg daily. Targeted blood pressure 140/90 or below. #Extensive osteoarthritis #Mild malnutrition: Diet consultation, Continue supportive diet and management. #Bilateral hammertoe, Chronic condition. #BRYAN due to VM[employer], resolved. #Anxiety/depression #Vitamin-D deficiency on 2000 units per day vitamin supplement. #Intermittent constipation: Docusate sodium 100 mg as needed. MiraLax if needed. #Allergic rhinitis, on fluticasone. #Stable coronary artery disease CAD: Nitroglycerin as needed, aspirin, anti- lipids to continue. Presently denying any chest pain. #Hypothyroidism: Patient on levothyroxine 75 mcg/daily #Dyslipidemia: Simvastatin 40 mg daily, continue. #GERD, 20 mg daily, ondansetron 4 mg daily, as needed famotidine. #Chronic pancreatic insufficiency: Patient is on Creon [id number] t.i.d. #Back pain: Cyclobenzaprine 10 mg p.o. b.i.d. #Reactive thrombocytosis: Moderate to severe, improving. #Known atopic disease with seasonal allergy: Loratadine 10 mg. #Dizziness/BPPV: Meclizine 25 mg t.i.d. p.r.n. DVT prophylaxis: Eliquis 5 bid x 2 weeks Diet: Cardiac diet GI prophylaxis: protonix 40mg Barriers to discharge: Pending discharge to [facility], appreciate sw input PCP: Dr. Modi Specialist Relevant To Admission: Orthopedics, Infectious Disease at discharge Patient care and plan discussed with Dr. Solis Disposition: Patient remains in [facility]-Surg Plan discussed with: Patient, Other My Orders My Orders Orders - KASSIDY SCHAEFER Procedure Category Date Status Time Apixaban (Eliquis) PHA 06/29/24 In Process 22:00 Amlodipine Tablet PHA 06/30/24 In Process (Norvasc Tablet) 10:00 Communication Order ORDERS 06/29/24 Transmitted 11:01 Change Dressing Prn ROSSI 06/29/24 In Process 14:46 Sodium Chloride Lock PHA 06/29/24 In Process (Saline Lock Ns) 22:00 Do Not Use Picc For ROSSI 06/29/24 In Process Blood Cult 14:46 May Draw Blood From ROSSI 06/29/24 In Process Picc 14:46 Ok To Use Picc ROSSI 06/29/24 In Process 14:46 Change Picc Dressing [facility] 06/29/24 In Process Q7 Days 14:46 Us Guided Vascular US 06/29/24 Logged Access 14:46 Date of Service: Jun 29, 2024 Billing Provider: JOSLYN ESCOBEDO MD Common Visit Codes: [id number] INP/OBS CARE(HIGH) KASSIDY SCHAEFER Jun 29, 2024 16:16 JOSLYN ESCOBEDO MD Jul 03, 2024 09:36
[2024-06-29] MEDS: APIXABAN 2.5 MG TAB PO SCH (21:38)
[2024-06-29] MEDS: SODIUM CHLOR 0.9% PF (SALINE LOCK) 10ML VIAL/SYR IV SCH (21:47)
[2024-06-30 01:00] VITALS: BP 171/76; PULSE 77; RESP 19; TEMP 98.1; O2SAT 96
[2024-06-30] MEDS: hydrALAZINE HCL 20 MG/ML VL IV PRN (02:18)
[2024-06-30 05:00] VITALS: BP 156/71; PULSE 80; RESP 19; TEMP 98.3; O2SAT 96
[2024-06-30 08:30] VITALS: PULSE 82
[2024-06-30 09:00] VITALS: BP 149/69; PULSE 76; RESP 16; TEMP 97.3; O2SAT 97
[2024-06-30] MEDS: amLODIPine BESYLATE 5 MG TAB PO SCH (10:29)
[2024-06-30 11:44] LABS: Basophils # (auto) 0.1 10 ^3/uL (0-0.2); Basophils % (auto) 0.5 % (0.0-2.0); Eosinophils # (auto) 0.1 10 ^3/uL (0-0.8); Lymphocytes # (auto) 1.4 10 ^3/uL (0.4-5.4); Monocytes # (auto) 1.8 10 ^3/uL (0-1.3)
[2024-06-30 11:45] LABS: Alanine Aminotransferase 12 U/L (7-40); Alkaline Phosphatase 72 U/L (46-116); Anion Gap 6 (5-15); Aspartate Aminotransferase 20 U/L (13-40); BUN/Creatinine Ratio 23.7 (10.0-20.0); Blood Urea Nitrogen 18 mg/dL (9-23); Calcium 10.1 mg/dL (8.7-10.4); Carbon Dioxide 27 mmol/L (20-31); Chloride 100 mmol/L (98-107)
[2024-06-30 11:46] LABS: Albumin 3.1 g/dL (3.2-4.8); Eosinophils % (auto) 0.7 % (0.0-7.0); Glucose 118 mg/dL (74-106); Hematocrit 25.2 % (36.0-46.0); Lymphocytes % (auto) 11.8 % (10.0-50.0); Mean Corpuscular Hemoglobin 25.4 pg (28.0-32.0); Mean Corpuscular Hgb Conc. 31.7 g/dL (32.0-36.0); Mean Corpuscular Volume 79.9 fL (80.0-100.0); Monocytes % (auto) 14.4 % (0.0-12.0); Neutrophils # (auto) 8.9 10 ^3/uL (1.6-8.6); Neutrophils % (auto) 72.6 % (37.0-80.0); Potassium 3.1 mmol/L (3.5-5.1); Red Blood Cells 3.15 10^6/uL (4.0-5.20); Red Cell Distribution Width 16.8 % (11.8-14.3); Sodium 133 mmol/L (136-145); White Blood Cell 12.3 10^3/uL (4.4-10.8)
[2024-06-30 11:47] LABS: Bilirubin, Total 0.3 mg/dL (0.2-1.0); Total Protein 6.7 g/dL (5.7-8.2)
[2024-06-30 12:22] LABS: Platelet Count (auto) 909 10^3/uL (140-450)
[2024-06-30 13:00] VITALS: BP 138/68; PULSE 81; RESP 16; TEMP 97.6; O2SAT 97
[2024-06-30 14:10] LABS: Large Platelets FEW; Platelet Estimate Marked
[2024-06-30] MEDS ORDERED: amLODIPine BESYLATE 5 MG TAB PO ONE (15:00)
[2024-06-30] MEDS ORDERED: POTASSIUM CHL 20 Meq TABLET PO ONE (16:00)
--- NOTE | 2024-06-30 16:00 | DVHDSRES ---
Discharge Summary Date of Admission Resident Creating Document: KASSIDY SCHAEFER RESIDENT Jun 19, 2024 at 18:40 Date of Discharge: Jun 29, 2024 Admitting Diagnosis Right knee swelling, pain, redness, loss of function, nonweightbearing Labs/Diagnostic Data: Laboratory Results Test 06/30/24 11:06 06/28/24 11:20 06/27/24 09:07 06/26/24 15:20 White Blood Count 12.3 10^3/uL (4.4-10.8) Red Blood Count 3.15 10^6/uL (4.0-5.20) Hemoglobin 8.0 g/dL (12.2-16.2) Hematocrit 25.2 % (36.0-46.0) Mean Corpuscular Volume 79.9 fL (80.0-100.0) Mean Corpuscular Hemoglobin 25.4 pg (28.0-32.0) Mean Corpuscular Hemoglobin Concent 31.7 g/dL (32.0-36.0) Red Cell Distribution Width 16.8 % (11.8-14.3) Platelet Count 909 10^3/uL (140-450) Mean Platelet Volume 5.6 fL (6.9-10.8) Neutrophils (%) (Auto) 72.6 % (37.0-80.0) Lymphocytes (%) (Auto) 11.8 % (10.0-50.0) Monocytes (%) (Auto) 14.4 % (0.0-12.0) Eosinophils (%) (Auto) 0.7 % (0.0-7.0) Basophils (%) (Auto) 0.5 % (0.0-2.0) Neutrophils # (Auto) 8.9 10 ^3/uL (1.6-8.6) Lymphocytes # (Auto) 1.4 10 ^3/uL (0.4-5.4) Monocytes # (Auto) 1.8 10 ^3/uL (0-1.3) Eosinophils # (Auto) 0.1 10 ^3/uL (0-0.8) Basophils # (Auto) 0.1 10 ^3/uL (0-0.2) Nucleated Red Blood Cells 0.0 % Platelet Estimate Marked Large Platelets Few Sodium Level 133 mmol/L (136-145) Potassium Level 3.1 mmol/L (3.5-5.1) Chloride Level 100 mmol/L (98-107) Carbon Dioxide Level 27 mmol/L (20-31) Anion Gap 6 (5-15) Blood Urea Nitrogen 18 mg/dL (9-23) Creatinine 0.76 mg/dL (0.550-1.02) Glomerular Filtration Rate Calc 77 mL/min (>90) BUN/Creatinine Ratio 23.7 (10.0-20.0) Serum Glucose 118 mg/dL (74-106) Calcium Level 10.1 mg/dL (8.7-10.4) Total Bilirubin 0.3 mg/dL (0.2-1.0) Aspartate Amino Transferase (AST) 20 U/L (13-40) Alanine Aminotransferase (ALT) 12 U/L (7-40) Alkaline Phosphatase 72 U/L (46-116) Total Protein 6.7 g/dL (5.7-8.2) Albumin 3.1 g/dL (3.2-4.8) Prothrombin Time 11.4 sec (9.3-11.8) Prothrombin Time INR 1.08 (0.9-1.15) Activated Partial Thromboplast Time 27.3 SEC (24.5-34.5) POC Glucose 109 mg/dl (70-106) Random Vancomycin Level 13.5 ug/mL (5-10) Test 06/25/24 20:16 06/25/24 09:45 06/24/24 07:00 06/23/24 13:18 Differential Total Cells Counted 100.0 (100) Neutrophils % (Manual) 82 (37.0-80.0) Band Neutrophils % (Manual) 0 Lymphocytes % (Manual) 14 (10.0-50.0) Monocytes % (Manual) 4 (0-12) Eosinophils % (Manual) 0 (0-7) Basophils % (Manual) 0 (0.0-2.0) Metamyelocytes % (manual) 0 Myelocytes % (Manual) 0 Promyelocytes % (Manual) 0 Blast Cells % (Manual) 0 Reactive Lymphocytes 0 Hypochromasia (manual) Slight Microcytosis Slight Stomatocytes Few Urine Color Light-yellow (Yellow) Urine Clarity Clear (Clear) Urine pH 6.5 (5.0-9.0) Urine Specific [place] 1.016 (1.001-1.035) Urine Protein 1+ (Negative) Urine Ketones Negative (Negative) Urine Blood 1+ /uL (Negative) Urine Nitrite Negative (Negative) Urine Bilirubin Negative (Negative) Urine Urobilinogen Normal mg/dL (Negative) Urine Leukocyte Esterase 2+ /uL (Negative) Urine RBC 8 /hpf (0 - 4) Urine WBC 16 /hpf (0 - 5) Urine Squamous Epithelial Cells Few /hpf (<5) Urine Bacteria None seen /hpf (None Seen) Urine Glucose Normal mg/dL (Normal) Vancomycin Level Trough 10.7 ug/mL (5-10) Test 06/22/24 04:47 06/21/24 04:49 06/19/24 15:20 Erythrocyte Sedimentation Rate 104 mm/hr (0-20) Iron Level 25 ug/dL (50-170) C-Reactive Protein High Sensitivity 14.18 mg/dL (<1.0) Vitamin B12 Level 1197 pg/mL (211-911) Lactic Acid Level 0.7 mmol/L (0.4-2.0) B-Type Natriuretic Peptide 382.66 pg/mL (0-100) Other Laboratory Tests 06/30/24 11:06 Brief Hx & Hospital Course: Hospitalization summary: Mrs. Louise, an 83-year-old female, history of severe osteoarthritis, organic heart disease, hypertension, coronary artery disease with PTCA stent placement, congestive heart failure with preserved ejection fraction, atrial fibrillation, and a hypercoagulable state, presents with knee pain following a fall three months ago, resulting in intermittent swelling and multiple knee drainages. Found to have right knee svetlana prosthesis septic arthritis with Pseudomonas growth. Processes removal, bone filler placement, beads placement, wound VAC/Prevana x1 week. Patient is put on PICC line and sent SNF with 6 weeks of IV cefepime for extensive physiotherapy. Patient will be followed outpatient by Orthopedic surgery Dr. García and establish care with Infectious Disease outpatient as needed. Patient is discharged to [facility] for further management and treatment with extensive physical therapy. Medical conditions treated in hospital: #Right Septic arthritis, Pseudomonas infection. cefepime IV. PICC line x 6 weeks. #Orthopedic prosthesis infection, present on admission S/p surgery 06/24 on wound vac. Continued VAC. Follow up Orthopedics input weight-bearing as tolerated with knee brace. #Osteomyelitis, ruled out. #Sepsis, resolved. #Severe, Osteoarthritis #Chronic Right knee pain #Essential hypertension: At home, lisinopril 20 mg and hydrochlorothiazide 25 mg daily. Targeted blood pressure 140/90 or below. #Extensive osteoarthritis #Mild malnutrition: Diet consultation, Continue supportive diet and management. #Bilateral hammertoe, Chronic condition. #BRYAN due to VM[employer], resolved. #Anxiety/depression #Vitamin-D deficiency on 2000 units per day vitamin supplement. #Intermittent constipation: Docusate sodium 100 mg as needed. MiraLax if needed. #Allergic rhinitis, on fluticasone. #Stable coronary artery disease CAD: Nitroglycerin as needed, aspirin, anti- lipids to continue. Presently denying any chest pain. #Hypothyroidism: Patient on levothyroxine 75 mcg/daily #Dyslipidemia: Simvastatin 40 mg daily, continue. #GERD, 20 mg daily, ondansetron 4 mg daily, as needed famotidine. #Chronic pancreatic insufficiency: Patient is on Creon [id number] t.i.d. #Back pain: Cyclobenzaprine 10 mg p.o. b.i.d. #Reactive thrombocytosis: Moderate to severe, improving. #Known atopic disease with seasonal allergy: Loratadine 10 mg. #Dizziness/BPPV: Meclizine 25 mg t.i.d. p.r.n. #The patient remained euvolumic and denied any history of congestive heart failure. No inpatient echo needed. DVT prophylaxis: Eliquis 2.5 bid x 2 weeks Disposition discharge: Patient is transported to [facility], appreciate sw input. PCP: Dr. Modi, follow up with 1-2 weeks of discharge. Specialist Relevant To Admission: Orthopedics, Infectious Disease (ID) at discharge needs follow up with discharge. Establish care with ID. Medications: New medications added in this hospitalization IV cefepime 2 g daily via PICC line x 6 weeks, oral suppression dose with ciprofloxacin to continue afterwards. Duration yet to determine. Follow up: Post discharge follow up with ESR/CRP, follow up CBC and platelets. Consults/Reason for consult Orthopedics Condition at Discharge: Fair Final Diagnosis/Problems List #Right Septic arthritis, Pseudomonas infection. cefepime IV. PICC line x 6 weeks. #Orthopedic prosthesis infection, present on admission S/p surgery 06/24 on wound vac. Continued VAC. Follow up Orthopedics input weight-bearing as tolerated with knee brace. #Osteomyelitis, ruled out. #Sepsis, resolved. #Severe, Osteoarthritis #Chronic Right knee pain #Essential hypertension: At home, lisinopril 20 mg and hydrochlorothiazide 25 mg daily. Targeted blood pressure 140/90 or below. #Extensive osteoarthritis #Mild malnutrition: Diet consultation, Continue supportive diet and management. #Bilateral hammertoe, Chronic condition. #BRYAN due to VM[employer], resolved. #Anxiety/depression #Vitamin-D deficiency on 2000 units per day vitamin supplement. #Intermittent constipation: Docusate sodium 100 mg as needed. MiraLax if needed. #Allergic rhinitis, on fluticasone. #Stable coronary artery disease CAD: Nitroglycerin as needed, aspirin, anti-lipids to continue. Presently denying any chest pain. #Hypothyroidism: Patient on levothyroxine 75 mcg/daily #Dyslipidemia: Simvastatin 40 mg daily, continue. #GERD, 20 mg daily, ondansetron 4 mg daily, as needed famotidine. #Chronic pancreatic insufficiency: Patient is on Creon [id number] t.i.d. #Back pain: Cyclobenzaprine 10 mg p.o. b.i.d. #Reactive thrombocytosis: Moderate to severe, improving. #Known atopic disease with seasonal allergy: Loratadine 10 mg. #Dizziness/BPPV: Meclizine 25 mg t.i.d. p.r.n. Discharge Disposition: [facility] Facility Discharge Instruct/Medications Diet: Cardiac 2g Na,low cholest Diet comment: as above Activity: See Comment Activity comment: weight bearing as tolerated on Rt knee, with brace. Follow Up/Referral: Visit PCP Dr. Modi in 1-2 weeks of discharge. Please follow up with Orthopedics Establish care with Infectious Disease outpatient mccarthy to discuss furthercontinuation of antibiotics/need of oral antibiotics Medications: as per AUG continue IV cefepime via picc line continue 2.5 mg bid eliquis x 14 days. Discharge Statement: "Patient was advised to return to the ER or call 911 if any headaches, dizziness, shortness of breath, chest pain, abdominal pain, bleeding, fevers, or worsening of medical condition. Patient was counseled about treatment plan, medications, possible side effects, patientverbalized understanding. All questions were answered to the best of my ability. This discharge took greater then 30 minutes in planning, reviewing documentation, counseling the patient, and discussing with other team members." ASSESSMENT ASSESSMENT Assessment #Right Septic arthritis, Pseudomonas infection. cefepime IV. PICC line x 6 weeks. #Orthopedic prosthesis infection, present on admission S/p surgery 06/24 on wound vac. Continued VAC. Follow up Orthopedics input weight-bearing as tolerated with knee brace. #Osteomyelitis, ruled out. #Sepsis, resolved. #Severe, Osteoarthritis #Chronic Right knee pain #Essential hypertension: At home, lisinopril 20 mg and hydrochlorothiazide 25 mg daily. Targeted blood pressure 140/90 or below. #Extensive osteoarthritis #Mild malnutrition: Diet consultation, Continue supportive diet and management. #Bilateral hammertoe, Chronic condition. #BRYAN due to [employer], resolved. #Anxiety/depression #Vitamin-D deficiency on 2000 units per day vitamin supplement. #Intermittent constipation: Docusate sodium 100 mg as needed. MiraLax if needed. #Allergic rhinitis, on fluticasone. #Stable coronary artery disease CAD: Nitroglycerin as needed, aspirin, anti- lipids to continue. Presently denying any chest pain. #Hypothyroidism: Patient on levothyroxine 75 mcg/daily #Dyslipidemia: Simvastatin 40 mg daily, continue. #GERD, 20 mg daily, ondansetron 4 mg daily, as needed famotidine. #Chronic pancreatic insufficiency: Patient is on Creon [id number] t.i.d. #Back pain: Cyclobenzaprine 10 mg p.o. b.i.d. #Reactive thrombocytosis: Moderate to severe, improving. #Known atopic disease with seasonal allergy: Loratadine 10 mg. #Dizziness/BPPV: Meclizine 25 mg t.i.d. pKASSIDY Cheung RESIDENT Jun 30, 2024 16:00
[2024-06-30 17:00] VITALS: BP 149/81; PULSE 75; RESP 18; TEMP 97.4; O2SAT 98
[2024-07-01] MEDS ORDERED: amLODIPine BESYLATE 5 MG TAB PO SCH (10:00)
--- NOTE | 2024-07-01 13:15 | ECG ---
[facility] Test Date: 2024-06-24 Test Time: 07:29:11 Pat Name: CAROL TARANGO Department: Room: [facility]0T A Gender: F Hat Marker: YASMIN : 1940 Requested By: KAYCE LOZOYA Order Number: [id number] Reading MD: Javier Reyna Measurements Intervals [place] Rate: 71 P: 61 [place]: 152 QRS: 42 QRSD: 82 T: 80 QT: 364 QTc: 395 Interpretive Statements Normal sinus rhythm Electronically Signed On 07-01-2024 18:52:39 PST by Javier Reyna Please click the below link to view image of tracing.
--- NOTE | 2024-07-07 13:15 | DVHPN2 ---
Progress Note - Dictate Date Seen: Jun 30, 2024 Medical Necessity Reason Pt with a Central, PICC or Fol: No Subjective PT S/P RIGHT KNEE REPLACEMENT NOW WITH EFFUSION S/P ARTHROCENTESIS TOTAL RIGHT KNEE ARTHROPLASTY PT WITH SEVERE OSTEOARTHRITIS ORGANIC HEART DISEASE HTN CAD WITH HX OF PTCA STENT HX OF CHF HRpEF / DIASTOLIC AFIB HYPERCOAGULABLE STATE Respiratory: denies: cough, hemoptysis, orthopnea, SOB at rest, shortness of breath, SOB with exertion, stridor, wheezing, others Gastrointestinal: Reports: abdominal pain, diarrhea, melena, vomiting, denies; poor appetite, poor fluid intake; constipated, diarrhea, dysphagia, difficulty swallowing, hematemesis, melena, nausea, rectal bleeding, rectal pain, vomiting, others Genitourinary: denies: abnormal vagina bleeding, burning, dyspareunia, dysuria, flank pain, frequency, hematuria, incontinence, pain, , vagina discharge, urgency, others Neurological: denies: dizziness, fainting, headache, left sided numbness, left sided weakness, numbness, paresthesia, pre-existing deficit, right sided numbness, right sided weakness, seizure, speech problems, tingling, tremors, weakness, others Musculoskeletal: denies: back pain, gout, joint pain, joint swelling, muscle pain, muscle stiffness, neck pain, others Integumentary: Denies: bruises, change in color, change in hair/nails, dryness, laceration, lesions, lumps, rash, wounds, others Allergic/Immunocompromised: denies: Difficulty Healing, Frequent Infections, Hives, Itching, others Hematologic/Lymphatic: denies: anemia, blood clots, easy bleeding, easy bruising, swollen glands, others Endocrine: denies: excessive hunger, excessive sweating, excessive thirst, excessive urination, flushing, intolerance to cold, intolerance to heat, unexplained weight gain, unexplained weight loss, others objective HEENT: Head is atraumatic normocephalic, eyes PERRLA, ENT oropharynx moist and clear, neck supple, no tenderness, trachea midline, no masses no JVD. Chest: Denies chest pain, no diaphoresis, no mass adenopathy, no tenderness. Cardiac: Regular rate and rhythm, S1-S2 normal, no murmurs, no rubs or gallops. Pulmonary: No shortness of breath, lungs are clear to auscultation bilaterally, no wheezing, no rales or rhonchi. Abdomen: Soft, tender, nondistended, no masses, bowel sounds positive. Genitourinary: Denies dysuria, no urinary frequency, no hematuria. Skin: Skin warm and dry to touch no rash or lesion, no ulceration. Extremities: No clubbing, no edema, no tenderness, no varicosity. Neurologic: Grossly intact, no new focal motor deficit, no numbness or tingling. laboratory and microbiology Laboratory Tests 06/30/24 11:06 Test 06/30/24 11:06 Range/Units Serum Glucose 118 H 74-106 mg/dL Problem List SEVERE OSTEOARTHRITIS RIGHT KNEE EFFUSION LEUKOCYTOSIS ANEMIA PMH ORGANIC HEART DISEASE HTN CAD WITH HX OF PTCA STENT HX OF CHF HRpEF / DIASTOLIC AFIB HYPERCOAGULABLE STATE HYPOKALEMIA Assessment/Plan ABX CT OF KNEE ASPIRATION AND CX CORRECT HYPOKALEMIA IRON INFUSION EPOGEN ASPIRATE NOT SENT FOR CELL COUNT LARGE EFFUSION NEEDS EVACUATION SEPTIC JOINT PSEUDOMONAS/ SEPTIC JOINT S/P OPERATIVE INTERVENTION FOR EXPLANTATION OF ALL KNEE HARDWARE S/P ANTIBIOTIC SPACERS FOLLOWING EXPLANTATION AND DEBRIDEMENT RECOMMEND DISCONTINUATION OF VANCO SINCE [employer] HAS ADEQUATE COVERAGE NO GRAM POSITIVE ORGANISMS SEEN VANCO SHOULD BE CONSIDERED ONLY IF THERE IS FAILURE OF THERAPY WITH [employer] LEUKOCYTOSIS TRENDING DOWN DC VANCO NO EVIDENCE FOR STAPH Plan discussed with: Patient ANISH DIAZ MD Jul 07, 2024 13:15
== END 2024-06-30 17:47 | DRG 463 ==
LOC: ER 13:31 → EDBD 13:31 → OVERFLOW 18:40 → WEST WING 18:47 → TELE-WESTW 06-24 09:58
PROVIDERS: ADMIT Student in an Organized Health Care Education/Training Program; ATTEND Emergency Medicine
PROC: 0S9C3ZZ Drainage of Right Knee Joint, Percutaneous Approach (ICD-10-PCS; 2024-06-22)
PROC: 0SPC0JZ Removal of Synthetic Substitute from Right Knee Joint, Open Approach (ICD-10-PCS; 2024-06-24)
PROC: 0SHC08Z Insertion of Spacer into Right Knee Joint, Open Approach (ICD-10-PCS; principal; 2024-06-24 07:40)
PROC: 30233N1 Transfusion of Nonautologous Red Blood Cells into Peripheral Vein, Percutaneous Approach (ICD-10-PCS; 2024-06-25)
PROC: 02HV33Z Insertion of Infusion Device into Superior Vena Cava, Percutaneous Approach (ICD-10-PCS; 2024-06-29)
PROC: B548ZZA Ultrasonography of Superior Vena Cava, Guidance (ICD-10-PCS; 2024-06-29)
DX: T84.53XA Infection and inflammatory reaction due to internal right knee prosthesis, initial encounter (principal); A41.9 Sepsis, unspecified organism; N17.0 Acute kidney failure with tubular necrosis; I50.22 Chronic systolic (congestive) heart failure; E44.1 Mild protein-calorie malnutrition; D68.59 Other primary thrombophilia; I13.0 Hypertensive heart and chronic kidney disease with heart failure and stage 1 through stage 4 chronic kidney disease, or unspecified chronic kidney disease; M00.861 Arthritis due to other bacteria, right knee; M17.11 Unilateral primary osteoarthritis, right knee; M25.461 Effusion, right knee; D64.9 Anemia, unspecified; D75.838 Other thrombocytosis; E87.6 Hypokalemia; N18.9 Chronic kidney disease, unspecified; M25.561 Pain in right knee; I25.10 Atherosclerotic heart disease of native coronary artery without angina pectoris; E03.9 Hypothyroidism, unspecified; I48.91 Unspecified atrial fibrillation; B96.5 Pseudomonas (aeruginosa) (mallei) (pseudomallei) as the cause of diseases classified elsewhere; E55.9 Vitamin D deficiency, unspecified; E78.5 Hyperlipidemia, unspecified; F32.A Depression, unspecified; F41.9 Anxiety disorder, unspecified; G89.29 Other chronic pain; J30.2 Other seasonal allergic rhinitis; M54.9 Dorsalgia, unspecified; Y83.1 Surgical operation with implant of artificial internal device as the cause of abnormal reaction of the patient, or of later complication, without mention of misadventure at the time of the procedure; K21.9 Gastro-esophageal reflux disease without esophagitis; K59.00 Constipation, unspecified; K86.89 Other specified diseases of pancreas; M20.41 Other hammer toe(s) (acquired), right foot; M20.42 Other hammer toe(s) (acquired), left foot; Z82.49 Family history of ischemic heart disease and other diseases of the circulatory system; Z90.710 Acquired absence of both cervix and uterus; Z80.1 Family history of malignant neoplasm of trachea, bronchus and lung; Z80.8 Family history of malignant neoplasm of other organs or systems; Z80.6 Family history of leukemia; Y92.89 Other specified places as the place of occurrence of the external cause; Z79.899 Other long term (current) drug therapy; Z95.5 Presence of coronary angioplasty implant and graft; H81.10 Benign paroxysmal vertigo, unspecified ear; Z68.20 Body mass index [BMI] 20.0-20.9, adult
CPT/HCPCS: 20611; 36415; 36569; 71045; 73560; 73562; 75989; 76881; 80048; 80053; 80202; 81001; 82565; 82607; 82962; 83540; 83605; 83880; 85007; 85025; 85027; 85610; 85652; 85730; 86141; 86850; 86900; 86901; 86920; 87040; 87077; 87081; 87186; 87205; 93005; 93971; 97110; 97116; 97163; 97530; C1729; G0378; J0131; J0692; J2185; J2250; J2405; J3490

== ENCOUNTER 2024-08-09 23:51 | Inpatient (IN) | payer MEDICARE, MEDICAID ==
[~2024-08-09] VITALS: Ht 157.5 cm; Wt 49.3 kg
[~2024-08-09 23:51] MED LIST changes: -ALPR0.254 PO; -AMIT25TA20 PO; -CHOL20007 PO; -DOCU-94 PO; -FAMO-12 PO; -LISI20TA56 PO; -OMEP20TA PO; -ONDA-144 PO; +POTA-180 PO
[2024-08-10] VITALS (19 sets, daily range): BP systolic 119–180; BP diastolic 61–90; PULSE 75–120; RESP 14–20; TEMP 98.6–99.6; O2SAT 100
[2024-08-10] MEDS: MORPHINE SULFATE INJ 2 MG/ml SYRG IV ONE (01:09)
[2024-08-10] MEDS: SODIUM CHLORIDE 0.9% 1,000 ML IV ONE (01:10)
[2024-08-10] MEDS: ONDANSETRON HCL 4 MG/2 ML VIAL IV ONE ×2 (01:10→06:47)
--- NOTE | 2024-08-10 01:38 | ED.PDOC ---
History of Present Illness HPI Comments 83 y/o F, with a Hx of multiple comorbidities, such as anemia, osteoarthritis, CAD, CHF, CKF, GERD, HLD, HTN, and hypothyroidism, is BIBA for c/o ALOC, today. Per EMS report, patient is a resident of [facility] and was brought in after faculty from facility called, due to patient being altered from her usual A&Ox4 baseline self since 1500, yesterday. Patient was noted to have been found on scene A&Ox0 and GCS14, with a distended and rigid abdomen and reproducible pain upon palpation. She was also stated to have a SpO2 of 98% on her baseline 2LPM O2, a blood pressure of 190/88, and a blood glucose of 118. At time of assessment, patient only states, repeatedly, "help me." She has no other reported associated symptoms per EMS staff upon arrival to ED, such as nausea, vomiting, or urinary symptoms. Further Hx cannot be obtained, due to patient's current altered stated and absence of family/cattle inspector historians. 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 No acute distress. Skin: Skin in warm, dry and intact. Appropriate color for ethnicity. HEENT: The head is normocephalic and atraumatic. Conjunctivae are clear without exudates or hemorrhage. Sclera is non-icteric. EOM are intact. No signs of nystagmus. Eyelids are normal in appearance without swelling or lesions. Oral mucus membranes dry. Neck: The neck is supple with normal range of motion. No JVD. Cardiac: Heart rate and rhythm are normal. No murmurs, gallops, or rubs are auscultated. Respiratory: No signs of respiratory distress. Lung sounds are clear in all lobes bilaterally without rales, ronchi, or wheezes. Abdominal: Abdomen is soft, non-tender with distention. Bowel sounds are present and normoactive in all four quadrants. Extremities: Upper and lower extremities are atraumatic in appearance without deformity or edema, with exception of brace on right knee. Neurological: The patient is confused, repeatedly stating "help me." Speech is clear. There is no facial asymmetry. 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 Was a procedure done?: No EKG EKG : Pulse Rate (adult): 77 [place]: Normal Cardiac Rhythm: NSR Block: None Hypertrophy: None ST: Normal Differential Dx Considerations may include: Differential diagnoses considered include but are not limited to intracranial hemorrhage, metabolic encephalopathy, delirium, UTI, viral syndrome, gastritis, gastroenteritis, SBO, acute abdomen, encephalopathy, electrolyte imbalance, bowel perforation, abdominal aortic aneurysm, other X-Ray, Labs, Meds, VS Vital Signs Date Time Temp Pulse Resp B/P (MAP) Pulse Ox O2 Delivery O2 Flow Rate FiO2 08/10/24 04:00 75 08/10/24 03:00 75 10 159/90 (113) 100 08/10/24 02:30 75 19 100 Nasal Cannula* 2 28 08/10/24 02:30 98.4 75 19 171/89 (116) 100 98.4 08/10/24 01:38 77 08/10/24 01:09 89 18 180/90 08/10/24 00:23 77 08/09/24 23:51 99.6 89 14 180/90 (120) 98 Lab Test 08/10/24 03:46 08/10/24 01:27 Range/Units Urine Color Light-yellow Yellow Urine Clarity Clear Clear Urine pH 7.0 5.0-9.0 Urine Specific [place] 1.021 1.001-1.035 Urine Protein 1+ H Negative Urine Ketones Negative Negative Urine Blood 1+ H Negative /uL Urine Nitrite Negative Negative Urine Bilirubin Negative Negative Urine Urobilinogen Normal Negative mg/dL Urine Leukocyte Esterase Negative Negative /uL Urine RBC 15 0 - 4 /hpf Urine Microscopic WBC 3 0-5 /HPF Urine Squamous Epithelial Cells None seen <5 /hpf Urine Bacteria None seen None Seen /hpf Urine Glucose Normal Normal mg/dL Urine Opiates Screen Pos NEGATIVE Urine Fentanyl Screen Neg NEGATIVE Urine Barbiturates Screen Neg NEGATIVE Urine Phencyclidine Screen Neg NEGATIVE Urine Amphetamines Screen Neg NEGATIVE Urine Benzodiazepines Screen Pos NEGATIVE Urine Cocaine Screen Neg NEGATIVE Urine Cannabinoids Screen Neg NEGATIVE White Blood Count 11.2 H 4.4-10.8 10^3/uL Red Blood Count 3.30 L 4.0-5.20 10^6/uL Hemoglobin 8.8 L 12.2-16.2 g/dL Hematocrit 28.0 L 36.0-46.0 % Mean Corpuscular Volume 84.8 80.0-100.0 fL Mean Corpuscular Hemoglobin 26.6 L 28.0-32.0 pg Mean Corpuscular Hemoglobin Concent 31.4 L 32.0-36.0 g/dL Red Cell Distribution Width 23.0 H 11.8-14.3 % Platelet Count 567 H 140-450 10^3/uL Mean Platelet Volume 5.9 L 6.9-10.8 fL Neutrophils (%) (Auto) 63.2 37.0-80.0 % Lymphocytes (%) (Auto) 20.6 10.0-50.0 % Monocytes (%) (Auto) 13.6 H 0.0-12.0 % Eosinophils (%) (Auto) 2.3 0.0-7.0 % Basophils (%) (Auto) 0.3 0.0-2.0 % Neutrophils # (Auto) 7.1 1.6-8.6 10 ^3/uL Lymphocytes # (Auto) 2.3 0.4-5.4 10 ^3/uL Monocytes # (Auto) 1.5 H 0-1.3 10 ^3/uL Eosinophils # (Auto) 0.3 0-0.8 10 ^3/uL Basophils # (Auto) 0 0-0.2 10 ^3/uL Nucleated Red Blood Cells 0.0 % Sodium Level 138 136-145 mmol/L Potassium Level 3.7 3.5-5.1 mmol/L Chloride Level 105 98-107 mmol/L Carbon Dioxide Level 23 20-31 mmol/L Anion Gap 10 5-15 Blood Urea Nitrogen 19 9-23 mg/dL Creatinine 0.75 0.550-1.02 mg/dL Glomerular Filtration Rate Calc 78 >90 mL/min BUN/Creatinine Ratio 25.3 H 10.0-20.0 Serum Glucose 101 74-106 mg/dL Lactic Acid Level 0.9 0.4-2.0 mmol/L Calcium Level 11.1 H 8.7-10.4 mg/dL Total Bilirubin 0.4 0.2-1.0 mg/dL Aspartate Amino Transferase (AST) 26 13-40 U/L Alanine Aminotransferase (ALT) 11 7-40 U/L Alkaline Phosphatase 98 46-116 U/L Troponin I High Sensitivity Pending Total Protein 7.6 5.7-8.2 g/dL Albumin 3.6 3.2-4.8 g/dL Lipase 29 12-53 U/L Plasma/Serum Blood Alcohol < 3.0 <10 mg/dL Current Medications Medications (Trade) Dose Ordered Sig/Irene Route Start Time Stop Time Status Last Admin Morphine Sulfate 4 mg ONCE ONCE IV 08/10/24 00:45 08/10/24 00:48 DC 08/10/24 01:09 Ondansetron HCl (Zofran) 4 mg ONCE ONCE IV 08/10/24 00:45 08/10/24 00:48 DC 08/10/24 01:10 Sodium Chloride 1,000 ml @ 1,000 mls/hr Q1H ONCE IV 08/10/24 00:45 08/10/24 01:44 DC 08/10/24 01:10 Haloperidol Lactate (Haldol) 5 mg ONCE ONCE IM 08/10/24 02:15 08/10/24 02:16 DC 08/10/24 02:37 Time of 1ST Reevaluation: 01:15 Reevaluation 1ST: Unchanged Patient Education/Counseling: Other (patient is altered ) Family Education/Counseling: No Family Present Departure 1 Departure Time of Disposition: 03:57 Impression: Primary Impression: Altered mental status Additional Impressions: Intractable abdominal pain Constipation Common bile duct dilatation Disposition: ADMITTED INPATIENT Condition: Stable Comments 83-year-old female who presented to the emergency department with altered mental status and abdominal pain. Per EMS patient's baseline status is a and AO x4. CT head showed no acute process. Patient was in psychological distress, continuously yelling "help me". She was unable to be verbally redirected or consoled. Symptoms did not improve with pain medication. Haldol was administered for sedation. CT abdomen and pelvis showed the common bile duct is dilated measuring 9.5 mm. Pancreatic duct is slightly prominent, measuring 2.5 mm. Possibly secondary to age. LFTs are within normal limits. Lipase is normal. We will admit for MRCP for further evaluation. Patient has severe intr actable abdominal pain secondary to constipation. We will admit for pain control, treatment of constipation and implementation of bowel regimen. Labs show mild leukocytosis however patient is afebrile. Urinalysis is pending. Patient admitted for further treatment, evaluation and monitoring. Extensive evaluation was performed in attempt to identify or rule out: (See differential diagnosis section) The following tests were ordered, and results were reviewed by me: (See diagnostic results section) The following test were independently interpreted by me: KUB- constipation, no free air under the diaphragm I reviewed and agreed with the following test results read by other providers: N/A I reviewed the following notes from the pt's past medical encounters: N/A Additional information was gathered from interviewing the following independent historians: EMS personnel Discussion of management or test interpretation with external physician/other qualified health career development counselor: N/A Decision regarding hospitalization or escalation of hospital level of care: Risk and benefits of admission for further treatment of patient's condition was considered. Due to patient's current clinical condition, high risk of decline and poor outcome if discharged and need for further inpatient management and monitoring, patient will be admitted to the hospital. Drug therapy requiring intensive monitoring for toxicity: N/A Parenteral controlled substances: IV morphine Decision regarding elective major surgery with identified patient or procedure risk factors: N/A Decision regarding emergency major surgery: N/A Decision not to resuscitate or to de-escalate care because of poor prognosis: N/A Diagnosis or treatment significantly limited by social determinants of health: N/A Critical Care Note Critical Care Time?: No Stability Stability form required: No Heart Score Heart Score: Heart Score Response (Comments) Value History N/A 0 EKG N/A 0 Age N/A 0 Risk Factors N/A 0 Troponin N/A 0 Total 0 I personally scribed for TAWANA PICKENS MD ([email or web address]) on 08/10/24 at 01:38. Electronically submitted by Avila Blanchard ([email or web address]). TAWANA PICKENS MD Aug 10, 2024 01:38
[2024-08-10 01:53] LABS: Basophils # (auto) 0 10 ^3/uL (0-0.2); Hemoglobin 8.8 g/dL (12.2-16.2); Monocytes # (auto) 1.5 10 ^3/uL (0-1.3); White Blood Cell 11.2 10^3/uL (4.4-10.8)
[2024-08-10 01:55] LABS: Basophils % (auto) 0.3 % (0.0-2.0); Eosinophils # (auto) 0.3 10 ^3/uL (0-0.8); Eosinophils % (auto) 2.3 % (0.0-7.0); Lymphocytes # (auto) 2.3 10 ^3/uL (0.4-5.4); Lymphocytes % (auto) 20.6 % (10.0-50.0); Mean Corpuscular Hemoglobin 26.6 pg (28.0-32.0); Mean Corpuscular Hgb Conc. 31.4 g/dL (32.0-36.0); Mean Corpuscular Volume 84.8 fL (80.0-100.0); Monocytes % (auto) 13.6 % (0.0-12.0); Neutrophils # (auto) 7.1 10 ^3/uL (1.6-8.6); Neutrophils % (auto) 63.2 % (37.0-80.0); Platelet Count (auto) 567 10^3/uL (140-450)
[2024-08-10 02:01] LABS: Alanine Aminotransferase 11 U/L (7-40); Albumin 3.6 g/dL (3.2-4.8); Alkaline Phosphatase 98 U/L (46-116); Anion Gap 10 (5-15); Aspartate Aminotransferase 26 U/L (13-40); BUN/Creatinine Ratio 25.3 (10.0-20.0); Bilirubin, Total 0.4 mg/dL (0.2-1.0); Blood Urea Nitrogen 19 mg/dL (9-23); Carbon Dioxide 23 mmol/L (20-31); Chloride 105 mmol/L (98-107); Glucose 101 mg/dL (74-106); Lipase 29 U/L (12-53); Potassium 3.7 mmol/L (3.5-5.1); Sodium 138 mmol/L (136-145); Total Protein 7.6 g/dL (5.7-8.2)
--- NOTE | 2024-08-10 02:02 | DVH ---
CT HEAD WITHOUT CONTRAST INDICATION: Altered mental status COMPARISON: None TECHNIQUE: CT of the head without intravenous contrast. RADIATION DOSE: CTDIvol: 54.19 mGy, DLP: 959.65 mGy*cm FINDINGS: There is no evidence of intracranial hemorrhage, infarct, extra-axial collection, mass effect, midli ne shift, herniation or hydrocephalus. Mild ventricular enlargement related to mild cerebral volume loss. Visualized paranasal sinuses and mastoid air cells are clear. Soft tissues and osseous structur es are unremarkable. IMPRESSION: No intracranial abnormality identified.
--- NOTE | 2024-08-10 02:06 | DVH ---
Date: 08/10/2024 01:36 AM Examination: XY KUB ABDOMEN SINGLE VIEW History: KUB, rule out bowel perforation/free air Comparison: None TECHNIQUE: Frontal views of the abdomen was obtained. FINDINGS: IMPRESSION: Large amount of stool is present throughout the large bowel. No abnormally dilated loops of large or small bowel noted. No abnormal calcific density identified. Lung bases are clear with no pleural effu yue.
[2024-08-10 02:07] LABS: Calcium 11.1 mg/dL (8.7-10.4)
[2024-08-10] MEDS: HALOPERIDOL LACTATE 5 MG/ML INJ VIAL IM ONE (02:37)
[2024-08-10] MEDS: IOHEXOL 300 MG/ML 100ML BOTTLE IJ ONE (03:02)
--- NOTE | 2024-08-10 03:43 | DVH ---
Examination: ABPLIV CLINICAL INDICATION: Abdominal pain, abdominal distention DIREAS;Reason for Exam: Stretcher;Stretche r;Modes of Transportation DITRANS;How is patient transported? ;n OECTB;Has the patient had a recent B UN/CREAT? ;N OECTC;Has the patient had IV contrast within last 48 hours? ;N OECTN;Has patient been E M ASSEMBLER O for at least 4 hours? COMPARISON: None. CONTRAST USED: Intravenous. TECHNIQUE: A post contrast CT study of the abdomen and pelvis is performed after administration of i ntravenous contrast medium. The examination was performed with 5 mm thin slices. Multiplanar recons tructions were obtained. CT scan done according to ALARA (As Low As Reasonably Achievable). FINDINGS: Lung base: Dependent basal densities are seen in posterior aspects of both lungs. Mild cardiomegaly. Liver: The liver is normal in size. The portal venous radicles are normal. There is no intrahepati c biliary radicle dilatation. Gallbladder: The gallbladder is normal and reveals no intrinsic abnormality. The common bile duct i s dilated measuring 9.5 mm. Pancreas: The pancreas is normal in size and shape. The main pancreatic duct is slightly prominent , measuring 2.5 mm. No focal lesion is seen within. The peripancreatic fat-planes are normal. Spleen: The spleen is normal in size and does not show any focal abnormality. Retroperitoneum: Both adrenal glands are normal in size and morphology. There is no significant retroperitoneal lymphadenopathy. The kidneys are normal in size with no hydronephrosis or renal calculi. Incidentally detected bilateral renal [place] 1 simple cortical cysts, largest measuring 15 mm in the left kidney. No follow-up is recommended as incidentally detected renal lesions are likely benign. Right renal cortical lobulation is seen. Vessels: Non-aneurysmal ASVD. IVC and the mesenteric vessels appear normal. Stomach and bowel: The bowel loops are unremarkable. There is no ascites. Skeletal system: Degenerative changes are seen involving the spine in the form of marginal osteophyt es. Dextroscoliosis. CT PELVIS: Appendix: The appendix is not visualized Colon: The large bowel loops are loaded with feces reflecting constipation. The ascending, transve rse, descending, sigmoid colon and rectum are unremarkable. Bladder: The urinary bladder is unremarkable. Uterus and ovaries: Post hysterectomy status. No adnexal pathology is seen. No abnormal fluid collection is seen. No pelvic lymphadenopathy is identified. Bilateral small inguinal hernia seen containing fat. IMPRESSION: 1. The common bile duct is dilated. Suggest LFT correlation. 2. The large bowel loops are loaded with feces reflecting constipation. 3. No abdominal mass or adenopathy. 4. No ascites. 5. No free air or inflammatory changes. 6. No bowel obstruction. 7. Additional chronic and/or ancillary findings as detailed above. 8. Suggest clinical correlation and follow-up as clinically deemed necessary. Electronically Signed 08/10/2024 03:41 Bill More
[2024-08-10 03:51] LABS: Urine Bacteria None Seen /hpf (None Seen)
[2024-08-10 04:09] LABS: Blood Alcohol < 3.0 mg/dL (<10)
[2024-08-10 04:10] LABS: Benzodiazephine Screen, Urine Pos (NEGATIVE); Opiate Scree,Urine Pos (NEGATIVE)
[2024-08-10 04:11] LABS: Cannabinoid Screen, Urine Neg (NEGATIVE)
[2024-08-10] MEDS: FLEET ENEMA(ADULT) 135 ML PR ONE (04:15)
[2024-08-10 04:18] LABS: Urine Blood 1+ /uL (Negative); Urine Clarity Clear (Clear); Urine Color Light-Yellow (Yellow); Urine Protein, UAD 1+ (Negative); Urine Specific Gravity 1.021 (1.001-1.035); Urine Squamous Epithelial Cell None Seen /hpf (<5); Urine Urobilinogen Normal (Negative); Urine WBC 3 /HPF (0-5)
[2024-08-10 04:19] LABS: Amphetamine Screen, Urine Neg (NEGATIVE); Barbiturate Scree,Urine Neg (NEGATIVE); Cocaine Screen, Urine Neg (NEGATIVE); Phencyclidine Screen, Urine Neg (NEGATIVE)
[2024-08-10] MEDS: METOPROLOL TARTRATE 1MG/1ML-5ML VIAL IV ONE (05:58)
[2024-08-10] MEDS: BISACODYL 10 MG RECT SUPP PR ONE (06:17)
[2024-08-10] MEDS: MORPHINE SULFATE 4 MG/ML SYR/VIAL IV ONE ×2 (06:48→15:56)
--- NOTE | 2024-08-10 07:11 | ECG ---
[facility] Test Date: 2024-08-10 Test Time: 00:23:42 Pat Name: CAROL TARANGO Department: ER Room: 0273T Gender: F [employer]: : 1940 Requested By: TAWANA PICKENS Order Number: [id number] Reading MD: Daryl Raymundo Measurements Intervals [place] Rate: 77 P: 68 LA: 184 QRS: 49 QRSD: 87 T: 79 QT: 365 QTc: 414 Interpretive Statements Sinus rhythm Electronically Signed On 08-13-2024 10:37:30 PST by Daryl Raymundo Please click the below link to view image of tracing.
[2024-08-10] MEDS: hydrALAZINE HCL 20 MG/ML VL IV ONE (07:47)
--- NOTE | 2024-08-10 10:44 | DVH ---
EXAM: XR Chest, 1 View CLINICAL INDICATION: PICC line placement TECHNIQUE: Frontal view of the chest. COMPARISON: Comparison FINDINGS: LUNGS AND PLEURAL SPACES: Pulmonary venous congestion. HEART: Unremarkable. No cardiomegaly. MEDIASTINUM: Unremarkable. Normal mediastinal contour. BONES/JOINTS: Unremarkable. No acute fracture. TUBES, LINES AND DEVICES: Status post left-sided PICC line with distal tip in SVC. No pneumothorax. OTHER FINDINGS: . None. . .. IMPRESSION: 1. Pulmonary venous congestion. 2. Status post left-sided PICC line with distal tip in SVC. No pneumothorax.
[2024-08-10] MEDS ORDERED: MORPHINE SULFATE INJ 2 MG/ml SYRG IV PRN (12:15)
[2024-08-10] MEDS ORDERED: NITROGLYCERIN 0.4 MG SL TAB SL PRN (12:15)
--- NOTE | 2024-08-10 12:38 | DVHHP2 ---
History of Present Illness Reason for Visit: ALOC History of Present Illness Verónica Louise is an 83-year-old female with past medical history of hypertension, COPD, CHF, atrial fibrillation, diabetes, hypothyroidism, chronic renal insufficiency, and cardiomyopathy, who was brought in by EMS for ALOC. Patient resides in an assisted living facility. The patient is A&O x 4 at baseline. Staff noticed she was altered and called EMS. On assessment, patient has repetitive speech, and is unable to follow commands or answer questions. Patient was recently admitted for a septic knee from knee replacement surgery. Patient is wearing a brace and the knee is swollen. Cardiovascular: AFIB, CHF, HTN, hyperipidemia Pulmonary: COPD Endocrine: Diabetes, Hypothyroidism Past Surgical History: Other, Total knee replacement (Right) Past Surgical History Unable to determine. Smoke: No ALCOHOL: none Drugs: None Lives: [facility] Domestic Violence: Neg Review of Systems Constitutional: No: Fever, Chills, Sweats, Weakness, Malaise, Other Eyes: No: Pain, Vision change, Conjunctivae inflammation, Eyelid inflammation, Other, Redness ENT: No: Ear pain, Ear discharge, Nose pain, Nose discharge, Nose congestion, Mouth pain, Mouth swelling, Throat pain, Throat swelling, Other Respiratory: No: Cough, Dry, Shortness of breath, SOB with excertion, Wheezing, Hemoptysis, Pleuritic Pain, Sputum, Wheezing, Other Cardiovascular: No: Chest Pain, Palpitations, Orthopnea, Paroxysmal Noc. Dyspnea, Edema, Lt Headedness, Other Gastrointestinal: No: Nausea, Vomiting, Abdominal Pain, Diarrhea, Constipation, Melena, Hematochezia, Other Genitourinary: No Dysuria, No Frequency, No Incontinence, No Hematuria, No Retention, No Other Musculoskeletal: No: other, neck pain, shoulder pain, arm pain, back pain, hand pain, leg pain, foot pain Skin: No: Rash, Lesions, Jaundice, Bruising, Other Neurological: Weakness, Incoordination, Change in speech, Confusion; No: Numbness, Seizures, Other Allergies: Coded Allergies: NO KNOWN ALLERGIES (Unverified , 10/11/16) UNOBTAINABLE (Unverified , 08/10/24) Medications Current Medications Medications Dose Ordered Sig/Irene Route Start Time Stop Time Status Last Admin Dose Admin Alprazolam 0.5 mg BIDPRN PRN PO 08/10/24 11:15 Aspirin 81 mg DAILY PO 08/11/24 10:00 Docusate Sodium 100 mg BID PO 08/10/24 22:00 Furosemide 40 mg BID PO 08/10/24 22:00 Atorvastatin Calcium 10 mg HS PO 08/10/24 22:00 Famotidine 40 mg BID PO 08/10/24 22:00 Levothyroxine Sodium 75 mcg DAILY PO 08/11/24 10:00 Lisinopril 40 mg DAILY PO 08/11/24 10:00 Sodium Chloride 1,000 ml @ 60 mls/hr [id number] IV 08/10/24 12:15 UNV Ondansetron HCl 4 mg Q4HP PRN IV 08/10/24 12:15 UNV Enoxaparin Sodium 40 mg DAILY SC 08/11/24 10:00 UNV Nitroglycerin 0.4 mg Q5MINP PRN SL 08/10/24 12:15 UNV Morphine Sulfate 2 mg Q30M PRN IV 08/10/24 12:15 UNV Nitroglycerin 250 ml @ 1.5 mls/hr Q24H IV 08/10/24 12:15 UNV Exam Vital Signs Vital Signs Date Time Temp Pulse Resp B/P (MAP) Pulse Ox O2 Delivery O2 Flow Rate FiO2 08/10/24 10:01 83 19 133/82 (99) 98 08/10/24 07:43 Nasal Cannula* 2 28 08/10/24 07:38 98.9 98.9 General Appearance: Alert, moderate distress, Other (Unable to answer any questions or follow commands) HEENT: Atraumatic, PERRLA, Other (dry mucous membr.) Respiratory: Clear to auscultation, Normal air movement Cardiovascular: Regular rate, Normal S1, Normal S2, No murmurs, Gallops Abdominal: Other (abdomen firm and distented) Extremities: Normal pulses, Other (swollen right knee) Skin: No rashes, No breakdown, No significant lesion Neuro: Other (repetitive speech, unable to follow commands or answer questions) Labs/Xrays Labs Test 08/10/24 11:07 08/10/24 03:46 08/10/24 01:27 Range/Units POC Glucose 98 70-106 mg/dl Urine Color Light-yellow Yellow Urine Clarity Clear Clear Urine pH 7.0 5.0-9.0 Urine Specific [place] 1.021 1.001-1.035 Urine Protein 1+ H Negative Urine Ketones Negative Negative Urine Blood 1+ H Negative /uL Urine Nitrite Negative Negative Urine Bilirubin Negative Negative Urine Urobilinogen Normal Negative mg/dL Urine Leukocyte Esterase Negative Negative /uL Urine RBC 15 0 - 4 /hpf Urine Microscopic WBC 3 0-5 /HPF Urine Squamous Epithelial Cells None seen <5 /hpf Urine Bacteria None seen None Seen /hpf Urine Glucose Normal Normal mg/dL Urine Opiates Screen Pos NEGATIVE Urine Fentanyl Screen Neg NEGATIVE Urine Barbiturates Screen Neg NEGATIVE Urine Phencyclidine Screen Neg NEGATIVE Urine Amphetamines Screen Neg NEGATIVE Urine Benzodiazepines Screen Pos NEGATIVE Urine Cocaine Screen Neg NEGATIVE Urine Cannabinoids Screen Neg NEGATIVE White Blood Count 11.2 H 4.4-10.8 10^3/uL Red Blood Count 3.30 L 4.0-5.20 10^6/uL Hemoglobin 8.8 L 12.2-16.2 g/dL Hematocrit 28.0 L 36.0-46.0 % Mean Corpuscular Volume 84.8 80.0-100.0 fL Mean Corpuscular Hemoglobin 26.6 L 28.0-32.0 pg Mean Corpuscular Hemoglobin Concent 31.4 L 32.0-36.0 g/dL Red Cell Distribution Width 23.0 H 11.8-14.3 % Platelet Count 567 H 140-450 10^3/uL Mean Platelet Volume 5.9 L 6.9-10.8 fL Neutrophils (%) (Auto) 63.2 37.0-80.0 % Lymphocytes (%) (Auto) 20.6 10.0-50.0 % Monocytes (%) (Auto) 13.6 H 0.0-12.0 % Eosinophils (%) (Auto) 2.3 0.0-7.0 % Basophils (%) (Auto) 0.3 0.0-2.0 % Neutrophils # (Auto) 7.1 1.6-8.6 10 ^3/uL Lymphocytes # (Auto) 2.3 0.4-5.4 10 ^3/uL Monocytes # (Auto) 1.5 H 0-1.3 10 ^3/uL Eosinophils # (Auto) 0.3 0-0.8 10 ^3/uL Basophils # (Auto) 0 0-0.2 10 ^3/uL Nucleated Red Blood Cells 0.0 % Sodium Level 138 136-145 mmol/L Potassium Level 3.7 3.5-5.1 mmol/L Chloride Level 105 98-107 mmol/L Carbon Dioxide Level 23 20-31 mmol/L Anion Gap 10 5-15 Blood Urea Nitrogen 19 9-23 mg/dL Creatinine 0.75 0.550-1.02 mg/dL Glomerular Filtration Rate Calc 78 >90 mL/min BUN/Creatinine Ratio 25.3 H 10.0-20.0 Serum Glucose 101 74-106 mg/dL Lactic Acid Level 0.9 0.4-2.0 mmol/L Calcium Level 11.1 H 8.7-10.4 mg/dL Total Bilirubin 0.4 0.2-1.0 mg/dL Aspartate Amino Transferase (AST) 26 13-40 U/L Alanine Aminotransferase (ALT) 11 7-40 U/L Alkaline Phosphatase 98 46-116 U/L Troponin I High Sensitivity 34 </=34 ng/L Total Protein 7.6 5.7-8.2 g/dL Albumin 3.6 3.2-4.8 g/dL Lipase 29 12-53 U/L Plasma/Serum Blood Alcohol < 3.0 <10 mg/dL CT HEAD WITHOUT CONTRAST FINDINGS: There is no evidence of intracranial hemorrhage, infarct, extra-axial collection, mass effect, midline shift, herniation or hydrocephalus. Mild ventricular enlargement related to mild cerebral volume loss. Visualized paranasal sinuses and mastoid air cells are clear. Soft tissues and osseous structures are unremarkable. IMPRESSION: No intracranial abnormality identified. Examination: XY KUB ABDOMEN SINGLE VIEW IMPRESSION: Large amount of stool is present throughout the large bowel. No abnormally dilated loops of large or small bowel noted. No abnormal calcific density identified. Lung bases are clear with no pleural effusion. Examination: ABPLIV FINDINGS: Lung base: Dependent basal densities are seen in posterior aspects of both lungs. Mild cardiomegaly. Liver: The liver is normal in size. The portal venous radicles are normal. There is no intrahepatic biliary radicle dilatation. Gallbladder: The gallbladder is normal and reveals no intrinsic abnormality. The common bile duct is dilated measuring 9.5 mm. Pancreas: The pancreas is normal in size and shape. The main pancreatic duct is slightly prominent, measuring 2.5 mm. No focal lesion is seen within. The peripancreatic fat-planes are normal. Spleen: The spleen is normal in size and does not show any focal abnormality. Retroperitoneum: Both adrenal glands are normal in size and morphology. There is no significant retroperitoneal lymphadenopathy. The kidneys are normal in size with no hydronephrosis or renal calculi. Incidentally detected bilateral renal [place] 1 simple cortical cysts, largest measuring 15 mm in the left kidney. No follow-up is recommended as incidentally detected renal lesions are likely benign. Right renal cortical lobulation is seen. Vessels: Non-aneurysmal ASVD. IVC and the mesenteric vessels appear normal. Stomach and bowel: The bowel loops are unremarkable. There is no ascites. Skeletal system: Degenerative changes are seen involving the spine in the form of marginal osteophytes. Dextroscoliosis. CT PELVIS: Appendix: The appendix is not visualized Colon: The large bowel loops are loaded with feces reflecting constipation. The ascending, transverse, descending, sigmoid colon and rectum are unremarkable. Bladder: The urinary bladder is unremarkable. Uterus and ovaries: Post hysterectomy status. No adnexal pathology is seen. No abnormal fluid collection is seen. No pelvic lymphadenopathy is identified. Bilateral small inguinal hernia seen containing fat. IMPRESSION: 1. The common bile duct is dilated. Suggest LFT correlation. 2. The large bowel loops are loaded with feces reflecting constipation. 3. No abdominal mass or adenopathy. 4. No ascites. 5. No free air or inflammatory changes. 6. No bowel obstruction. 7. Additional chronic and/or ancillary findings as detailed above. 8. Suggest clinical correlation and follow-up as clinically deemed necessary. EXAM: XR Chest, 1 View FINDINGS: LUNGS AND PLEURAL SPACES: Pulmonary venous congestion. HEART: Unremarkable. No cardiomegaly. MEDIASTINUM: Unremarkable. Normal mediastinal contour. BONES/JOINTS: Unremarkable. No acute fracture. TUBES, LINES AND DEVICES: Status post left-sided PICC line with distal tip in SVC. No pneumothorax. OTHER FINDINGS: . None. . .. IMPRESSION: 1. Pulmonary venous congestion. 2. Status post left-sided PICC line with distal tip in SVC. No pneumothorax. Assessment/Plan Assessment/Plan Assessment: Hypertensive encephalopathy, Constipation, CHF, Hypothyroidism, Chronic renal insufficiency, COPD, Diabetes, Plan: Admit to ICU, Cardiology consult Dr. Modi, Orthopedic consult, Nitro drip to keep SBP less than 140, MRI brain, IV antibiotics, Consider Neurology consult, Urine culture, Blood culture, Plan discussed with: Patient My Orders Orders - DANDY WASHINGTON Procedure Category Date Status Time Alprazolam Tablet PHA 08/10/24 In Process (Xanax Tablet) 11:15 Aspirin Enteric PHA 08/11/24 In Process Coated Tablet 10:00 Docusate Sodium PHA 08/10/24 In Process Capsule (Colace 22:00 Furosemide Tablet PHA 08/10/24 In Process (Lasix Tablet) 22:00 Famotidine Tablet PHA 08/10/24 In Process (Pepcid Tablet) 22:00 Levothyroxine Tablet PHA 08/11/24 In Process (Synthroid Tablet) 10:00 Lisinopril Tablet PHA 08/11/24 In Process (Zestril Tablet) 10:00 Atorvastatin (Lipitor) PHA 08/10/24 In Process 22:00 Admit ADMIT 08/10/24 Transmitted 12:01 Code Status CODE 08/10/24 Transmitted 12:01 Sodium Chloride 0.9% PHA 08/10/24 Logged 12:15 Ondansetron Hcl PHA 08/10/24 Logged (Zofran) 12:15 Enoxaparin Sodium PHA 08/11/24 Logged (Lovenox) 10:00 Fall Risk Precautions ROSSI 08/10/[address] 12:01 Complete Blood Count LAB 08/11/24 Verified 04:00 Comprehensive LAB 08/11/24 Verified Metabolic Panel 04:00 Npo (Nothing By DIET 08/10/24 Transmitted Mouth) Diet Lunch Condition: Critical ROSSI 08/10/24 In Process 12:01 Nitroglycerin PHA 08/10/24 Logged Sublingual (Ntrostat 12:15 Morphine Sulfate PHA 08/10/24 Logged Injection 12:15 Stat Ekg For Chest ROSSI 08/10/24 In Process Pain 12:01 Notify Of Changes ROSSI 08/10/24 In Process From Base 12:01 Reel Worker For ROSSI 08/10/24 In Process 24 Hours 12:01 Emergency Dysrhythmia ROSSI 08/10/24 In Process Protocol 12:01 Rhythm Strips Once ROSSI 08/10/24 In Process Every Shift 12:01 Oxygen By Nasal RT 08/10/24 Transmitted Cannula 12:01 Nitroglycerin PHA 08/10/24 Logged 50mg/250ml (Tridil) 12:15 Date of Service: Aug 10, 2024 Billing Provider: DANDY WASHINGTON Common Visit Codes: [id number] INP/OBS CARE (MOD) DANDY WASHINGTON Aug 10, 2024 12:38
[2024-08-10] MEDS: SODIUM CHLORIDE 0.9% 1,000 ML IV SCH (12:40)
[2024-08-10] MEDS: NITROGLYCERIN 50MG/250ML 250 ML IV SCH (12:48)
--- NOTE | 2024-08-10 17:15 | DVHPN2 ---
Progress Note - Dictate Date Seen: Aug 10, 2024 Medical Necessity Reason Pt with a Central, PICC or Fol: Yes The following are medically ne: Glass Catheter Subjective PT WITH REMOVAL OF KNEE PROSTHESIS SECONDARY TO SEPSIS RIGHT KNEE REPLACEMENT NOW WITH EFFUSION S/P ARTHROCENTESIS TOTAL RIGHT KNEE ARTHROPLASTY PT WITH SEVERE OSTEOARTHRITIS ORGANIC HEART DISEASE HTN CAD WITH HX OF PTCA STENT HX OF CHF HRpEF / DIASTOLIC AFIB HYPERCOAGULABLE STATE Respiratory: denies: cough, hemoptysis, orthopnea, SOB at rest, shortness of breath, SOB with exertion, stridor, wheezing, others Gastrointestinal: Reports: abdominal pain, diarrhea, melena, vomiting, denies; poor appetite, poor fluid intake; constipated, diarrhea, dysphagia, difficulty swallowing, hematemesis, melena, nausea, rectal bleeding, rectal pain, vomiting, others Genitourinary: denies: abnormal vagina bleeding, burning, dyspareunia, dysuria, flank pain, frequency, hematuria, incontinence, pain, , vagina discharge, urgency, others Neurological: denies: dizziness, fainting, headache, left sided numbness, left sided weakness, numbness, paresthesia, pre-existing deficit, right sided numbness, right sided weakness, seizure, speech problems, tingling, tremors, weakness, others Musculoskeletal: denies: back pain, gout, joint pain, joint swelling, muscle pain, muscle stiffness, neck pain, others Integumentary: Denies: bruises, change in color, change in hair/nails, dryness, laceration, lesions, lumps, rash, wounds, others Allergic/Immunocompromised: denies: Difficulty Healing, Frequent Infections, Hives, Itching, others Hematologic/Lymphatic: denies: anemia, blood clots, easy bleeding, easy bruising, swollen glands, others Endocrine: denies: excessive hunger, excessive sweating, excessive thirst, excessive urination, flushing, intolerance to cold, intolerance to heat, unexplained weight gain, unexplained weight loss, others vital signs Vital Sign Date Time Temp Pulse Resp B/P (MAP) Pulse Ox O2 Delivery O2 Flow Rate FiO2 08/10/24 16:30 96 15 165/84 (111) 100 08/10/24 07:43 Nasal Cannula* 2 28 08/10/24 07:38 98.9 98.9 Total Intake and Output 08/09/24 08/09/2425 15:00 23:00 07:00 Intake Total 1000 ml Balance 1000 ml medications Current Medications Medications Dose Ordered Sig/Irene Route Start Time Stop Time Status Last Admin Dose Admin Alprazolam 0.5 mg BIDPRN PRN PO 08/10/24 11:15 Aspirin 81 mg DAILY PO 08/11/24 10:00 Docusate Sodium 100 mg BID PO 08/10/24 22:00 Furosemide 40 mg BID PO 08/10/24 22:00 Atorvastatin Calcium 10 mg HS PO 08/10/24 22:00 Famotidine 40 mg BID PO 08/10/24 22:00 Levothyroxine Sodium 75 mcg DAILY PO 08/11/24 10:00 Lisinopril 40 mg DAILY PO 08/11/24 10:00 Sodium Chloride 1,000 ml @ 60 mls/hr [id number] IV 08/10/24 12:15 08/10/24 12:40 60 MLS/HR Ondansetron HCl 4 mg Q4HP PRN IV 08/10/24 12:15 Enoxaparin Sodium 40 mg DAILY SC 08/11/24 10:00 Nitroglycerin 0.4 mg Q5MINP PRN SL 08/10/24 12:15 Morphine Sulfate 2 mg Q30M PRN IV 08/10/24 12:15 Nitroglycerin 250 ml @ 1.5 mls/hr Q24H IV 08/10/24 12:15 08/10/24 12:48 1.5 MLS/HR objective HEENT: Head is atraumatic normocephalic, eyes PERRLA, ENT oropharynx moist and clear, neck supple, no tenderness, trachea midline, no masses no JVD. Chest: Denies chest pain, no diaphoresis, no mass adenopathy, no tenderness. Cardiac: Regular rate and rhythm, S1-S2 normal, no murmurs, no rubs or gallops. Pulmonary: No shortness of breath, lungs are clear to auscultation bilaterally, no wheezing, no rales or rhonchi. Abdomen: Soft, tender, nondistended, no masses, bowel sounds positive. Genitourinary: Denies dysuria, no urinary frequency, no hematuria. Skin: Skin warm and dry to touch no rash or lesion, no ulceration. Extremities: No clubbing, no edema, no tenderness, no varicosity. Neurologic: Grossly intact, no new focal motor deficit, no numbness or tingling. laboratory and microbiology Laboratory Tests 08/10/24 01:27 Test 08/10/24 01:27 Range/Units Serum Glucose 101 74-106 mg/dL Problem List SEPTIC JOINT S/P EXPLANTATION OF RIGHT KNEE PROSTHESIS WITH SPACERS NOW WITH CONFUSION METABOLIC ENCEPHALOPATHY SEVERE OSTEOARTHRITIS RIGHT KNEE EFFUSION LEUKOCYTOSIS ANEMIA PMH ORGANIC HEART DISEASE HTN CAD WITH HX OF PTCA STENT HX OF CHF HRpEF / DIASTOLIC AFIB HYPERCOAGULABLE STATE HYPOKALEMIA SEVERE CACHEXIA HYPERCALCEMIA Assessment/Plan ABX BLOOD CX ABG CXR IV FLUID LASIX TREAT HYPERCALCEMIA Plan discussed with: Patient ANISH DIAZ MD Aug 10, 2024 17:14
[2024-08-10] MEDS: FUROSEMIDE 40 MG/4 ML VIAL IV ONE (17:40)
[2024-08-10 22:00] LABS: Erythrocyte Sedimentation Rate 56 mm/hr (0-20)
[2024-08-10] MEDS: ATORVASTATIN 20 MG TAB PO SCH (22:00)
[2024-08-10] MEDS: DOCUSATE SOD 100 MG CAP PO SCH (22:00)
[2024-08-10] MEDS: FAMOTIDINE 20 MG TAB PO SCH (22:00)
[2024-08-10] MEDS: FUROSEMIDE 40 MG TAB PO SCH (22:00)
[2024-08-11] VITALS (89 sets, daily range): BP systolic 16–164; BP diastolic 47–81; PULSE 79–107; RESP 13–26; TEMP 97.2–98.3; O2SAT 91–100
--- NOTE | 2024-08-11 05:36 | DVH ---
EXAM: XR Right Knee, 1 or 2 Views CLINICAL INDICATION: osteoarthritis TECHNIQUE: Frontal and/or lateral views of the right knee. COMPARISON: None FINDINGS: BONES/JOINTS: Total knee replacement. The tibial component removed. No acute fracture dislocation . Soft tissue swelling. SOFT TISSUES: See above. OTHER FINDINGS: . None. .. IMPRESSION: Postop changes as above.
[2024-08-11 07:15] LABS: Basophils # (auto) 0 10 ^3/uL (0-0.2); Basophils % (auto) 0.4 % (0.0-2.0); Eosinophils # (auto) 0.1 10 ^3/uL (0-0.8); Hemoglobin 8.8 g/dL (12.2-16.2); Lymphocytes # (auto) 1.6 10 ^3/uL (0.4-5.4); Nucleated Red Blood Cells % 0.1 %
[2024-08-11 07:18] LABS: Eosinophils % (auto) 0.6 % (0.0-7.0); Lymphocytes % (auto) 14.2 % (10.0-50.0); Mean Corpuscular Hemoglobin 27.6 pg (28.0-32.0); Mean Corpuscular Hgb Conc. 32.6 g/dL (32.0-36.0); Mean Corpuscular Volume 84.8 fL (80.0-100.0); Monocytes # (auto) 1.3 10 ^3/uL (0-1.3); Monocytes % (auto) 11.5 % (0.0-12.0); Neutrophils # (auto) 8.5 10 ^3/uL (1.6-8.6); Neutrophils % (auto) 73.3 % (37.0-80.0); Platelet Count (auto) 574 10^3/uL (140-450); Red Blood Cells 3.19 10^6/uL (4.0-5.20); White Blood Cell 11.5 10^3/uL (4.4-10.8)
[2024-08-11 07:20] LABS: Alanine Aminotransferase 13 U/L (7-40); Albumin 3.9 g/dL (3.2-4.8); Alkaline Phosphatase 103 U/L (46-116); Anion Gap 11 (5-15); Aspartate Aminotransferase 23 U/L (13-40); Carbon Dioxide 24 mmol/L (20-31); Chloride 105 mmol/L (98-107); Red Cell Distribution Width 22.6 % (11.8-14.3); Sodium 140 mmol/L (136-145)
[2024-08-11 07:21] LABS: Total Protein 7.9 g/dL (5.7-8.2)
[2024-08-11 07:28] LABS: Erythrocyte Sedimentation Rate 66 mm/hr (0-20)
[2024-08-11 07:29] LABS: Blood Urea Nitrogen 21 mg/dL (9-23)
[2024-08-11 07:33] LABS: Bilirubin, Total 0.3 mg/dL (0.2-1.0); Calcium 10.7 mg/dL (8.7-10.4); Glucose 132 mg/dL (74-106)
[2024-08-11] MEDS: diphenhdrAMINE HCL 50 MG/1 ML VL IV ONE (07:46)
[2024-08-11] MEDS ORDERED: DEXTROSE (50%) 50ML SYRG IV PRN (08:45)
[2024-08-11] MEDS: ASPirin-EC 81 mg tab PO SCH (09:51)
[2024-08-11] MEDS: LEVOTHYROXINE SODIUM 25 MCG TAB PO SCH (09:51)
[2024-08-11] MEDS: LISINOPRIL 20 MG TAB PO SCH (09:52)
[2024-08-11] MEDS: ENOXAPARIN SOD 40 MG/0.4 ML SYRINGE SC SCH (10:00)
[2024-08-11] MEDS: POTASSIUM CHL 20MEQ/100ML 100 ML IV SCH (10:51)
[2024-08-11] MEDS: InsuLIN REG 1unit/0.01ml Soln (100units/ml) SC SCH (11:52)
[2024-08-11] MEDS: ACCU-CHEK COMFORT CURVE STRIP VI SCH (11:52)
[2024-08-11] MEDS ORDERED: POTASSIUM CHL 20MEQ/100ML 100 ML IV SCH (13:15)
--- NOTE | 2024-08-11 13:21 | DVHPN2 ---
Progress Note - Dictate Date Seen: Aug 11, 2024 Medical Necessity Reason Pt with a Central, PICC or Fol: Yes The following are medically ne: Glass Catheter Subjective PT WITH REMOVAL OF KNEE PROSTHESIS SECONDARY TO SEPSIS RIGHT KNEE REPLACEMENT NOW WITH EFFUSION S/P ARTHROCENTESIS TOTAL RIGHT KNEE ARTHROPLASTY PT WITH SEVERE OSTEOARTHRITIS ORGANIC HEART DISEASE HTN CAD WITH HX OF PTCA STENT HX OF CHF HRpEF / DIASTOLIC AFIB HYPERCOAGULABLE STATE Respiratory: denies: cough, hemoptysis, orthopnea, SOB at rest, shortness of breath, SOB with exertion, stridor, wheezing, others Gastrointestinal: Reports: abdominal pain, diarrhea, melena, vomiting, denies; poor appetite, poor fluid intake; constipated, diarrhea, dysphagia, difficulty swallowing, hematemesis, melena, nausea, rectal bleeding, rectal pain, vomiting, others Genitourinary: denies: abnormal vagina bleeding, burning, dyspareunia, dysuria, flank pain, frequency, hematuria, incontinence, pain, , vagina discharge, urgency, others Neurological: denies: dizziness, fainting, headache, left sided numbness, left sided weakness, numbness, paresthesia, pre-existing deficit, right sided numbness, right sided weakness, seizure, speech problems, tingling, tremors, weakness, others Musculoskeletal: denies: back pain, gout, joint pain, joint swelling, muscle pain, muscle stiffness, neck pain, others Integumentary: Denies: bruises, change in color, change in hair/nails, dryness, laceration, lesions, lumps, rash, wounds, others Allergic/Immunocompromised: denies: Difficulty Healing, Frequent Infections, Hives, Itching, others Hematologic/Lymphatic: denies: anemia, blood clots, easy bleeding, easy bruising, swollen glands, others Endocrine: denies: excessive hunger, excessive sweating, excessive thirst, excessive urination, flushing, intolerance to cold, intolerance to heat, unexplained weight gain, unexplained weight loss, others vital signs Vital Sign Date Time Temp Pulse Resp B/P (MAP) Pulse Ox O2 Delivery O2 Flow Rate FiO2 08/11/24 12:15 90 17 138/60 (86) 94 08/11/24 12:00 98.1 98.1 08/11/24 12:00 Room Air* 0 21 Total Intake and Output 08/10/24 08/10/2425 15:00 23:00 07:00 Intake Total 120 ml 565 ml 600 ml Output Total 1702 ml 1000 ml Balance 120 ml -1137 ml -400 ml medications Current Medications Medications Dose Ordered Sig/Irene Route Start Time Stop Time Status Last Admin Dose Admin Alprazolam 0.5 mg BIDPRN PRN PO 08/10/24 11:15 Aspirin 81 mg DAILY PO 08/11/24 10:00 Docusate Sodium 100 mg BID PO 08/10/24 22:00 Furosemide 40 mg BID PO 08/10/24 22:00 Atorvastatin Calcium 10 mg HS PO 08/10/24 22:00 Famotidine 40 mg BID PO 08/10/24 22:00 Levothyroxine Sodium 75 mcg DAILY PO 08/11/24 10:00 Lisinopril 40 mg DAILY PO 08/11/24 10:00 Sodium Chloride 1,000 ml @ 60 mls/hr [id number] IV 08/10/24 12:15 08/11/24 05:29 60 MLS/HR Ondansetron HCl 4 mg Q4HP PRN IV 08/10/24 12:15 Enoxaparin Sodium 40 mg DAILY SC 08/11/24 10:00 08/11/24 10:00 40 MG Nitroglycerin 0.4 mg Q5MINP PRN SL 08/10/24 12:15 Morphine Sulfate 2 mg Q30M PRN IV 08/10/24 12:15 Nitroglycerin 250 ml @ 1.5 mls/hr Q24H IV 08/10/24 12:15 08/10/24 12:48 1.5 MLS/HR Nicardipine HCl 250 ml @ 50 mls/hr Q5H IV 08/10/24 17:30 08/11/24 11:28 75 MLS/HR Diagnostic Test (Pha) 1 strip Q6HR 08/11/24 12:00 08/11/24 11:52 1 STRIP Insulin Human Regular Q6HR SC 08/11/24 12:00 Dextrose 50 ml UD PRN IV 08/11/24 08:45 objective HEENT: Head is atraumatic normocephalic, eyes PERRLA, ENT oropharynx moist and clear, neck supple, no tenderness, trachea midline, no masses no JVD. Chest: Denies chest pain, no diaphoresis, no mass adenopathy, no tenderness. Cardiac: Regular rate and rhythm, S1-S2 normal, no murmurs, no rubs or gallops. Pulmonary: No shortness of breath, lungs are clear to auscultation bilaterally, no wheezing, no rales or rhonchi. Abdomen: Soft, tender, nondistended, no masses, bowel sounds positive. Genitourinary: Denies dysuria, no urinary frequency, no hematuria. Skin: Skin warm and dry to touch no rash or lesion, no ulceration. Extremities: No clubbing, no edema, no tenderness, no varicosity. Neurologic: Grossly intact, no new focal motor deficit, no numbness or tingling. laboratory and microbiology Laboratory Tests 08/11/24 06:21 Test 08/11/24 06:21 Range/Units Serum Glucose 132 H 74-106 mg/dL Problem List SEPTIC JOINT S/P EXPLANTATION OF RIGHT KNEE PROSTHESIS WITH SPACERS NOW WITH CONFUSION METABOLIC ENCEPHALOPATHY SEVERE OSTEOARTHRITIS RIGHT KNEE EFFUSION LEUKOCYTOSIS ANEMIA PMH ORGANIC HEART DISEASE HTN CAD WITH HX OF PTCA STENT HX OF CHF HRpEF / DIASTOLIC AFIB HYPERCOAGULABLE STATE HYPOKALEMIA SEVERE CACHEXIA HYPERCALCEMIA Assessment/Plan ABX BLOOD CX ABG CXR IV FLUID LASIX TREAT HYPERCALCEMIA IMROVING TO 10.7 Plan discussed with: Patient ANISH DIAZ MD Aug 11, 2024 13:21
--- NOTE | 2024-08-11 13:52 | DVHPN2 ---
Subjective Patient denies any symptoms. Reviewed: Care Plan, H&P, Labs, Medications, Previous Orders Changes from previous H/P or p: No Changes General: Per HPI Eyes: No Pain, No Vision change, No Conjunctivae inflammation, No Eyelid inflammation, No Other, No Redness ENT: No Ear pain, No Ear discharge, No Nose pain, No Nose discharge, No Nose congestion, No Mouth pain, No Mouth swelling, No Throat pain, No Throat swelling, No Other Cardiovascular: No Chest Pain, No Palpitations, No Orthopnea, No Paroxysmal Noc. Dyspnea, No Edema, No Lt Headedness, No Other Respiratory: No Cough, No Dry, No Shortness of breath, No SOB with excertion, No Wheezing, No Hemoptysis, No Pleuritic Pain, No Sputum, No Other Gastrointestinal: No Nausea, No Vomiting, No Abdominal Pain, No Diarrhea, No Constipation, No Melena, No Hematochezia, No Other Genitourinary: No Dysuria, No Frequency, No Incontinence, No Hematuria, No Retention, No Other Musculoskeletal: No other, No neck pain, No shoulder pain, No arm pain, No back pain, No hand pain, No leg pain, No foot pain Skin: No Rash, No Lesions, No Jaundice, No Bruising, No Other Objective Vitals Vital Signs Date Time Temp Pulse Resp B/P (MAP) Pulse Ox O2 Delivery O2 Flow Rate FiO2 08/11/24 12:15 90 17 138/60 (86) 94 08/11/24 12:00 98.1 98.1 08/11/24 12:00 Room Air* 0 21 Intake/Output Intake and Output 08/11/24 07:00 Intake Total 1285 ml Output Total 2702 ml Balance -1417 ml Intake IV Total 1285 ml Output Urine Total 2500 ml Stool Total 202 ml # Bowel Movements 2 General Appearance: Alert, Oriented X3, Cooperative, mild distress HEENT: Atraumatic, PERRLA Lungs: Clear to auscultation, Normal air movement Cardiovascular: Normal S1, Normal S2 Abdomen: Normal bowel sounds Musculoskeletal: Normal sensory function, Normal motor function Neuro: Normal speech Psych/Mental Status: Mental status NL, Mood NL Medications Current Medications Medications Dose Ordered Sig/Irene Route Start Time Stop Time Status Last Admin Dose Admin Alprazolam 0.5 mg BIDPRN PRN PO 08/10/24 11:15 Aspirin 81 mg DAILY PO 08/11/24 10:00 Docusate Sodium 100 mg BID PO 08/10/24 22:00 Furosemide 40 mg BID PO 08/10/24 22:00 Atorvastatin Calcium 10 mg HS PO 08/10/24 22:00 Famotidine 40 mg BID PO 08/10/24 22:00 Levothyroxine Sodium 75 mcg DAILY PO 08/11/24 10:00 Lisinopril 40 mg DAILY PO 08/11/24 10:00 Sodium Chloride 1,000 ml @ 60 mls/hr [id number] IV 08/10/24 12:15 08/11/24 05:29 60 MLS/HR Ondansetron HCl 4 mg Q4HP PRN IV 08/10/24 12:15 Enoxaparin Sodium 40 mg DAILY SC 08/11/24 10:00 08/11/24 10:00 40 MG Nitroglycerin 0.4 mg Q5MINP PRN SL 08/10/24 12:15 Morphine Sulfate 2 mg Q30M PRN IV 08/10/24 12:15 Nitroglycerin 250 ml @ 1.5 mls/hr Q24H IV 08/10/24 12:15 08/10/24 12:48 1.5 MLS/HR Nicardipine HCl 250 ml @ 50 mls/hr Q5H IV 08/10/24 17:30 08/11/24 11:28 75 MLS/HR Diagnostic Test (Pha) 1 strip Q6HR 08/11/24 12:00 08/11/24 11:52 1 STRIP Insulin Human Regular Q6HR SC 08/11/24 12:00 Dextrose 50 ml UD PRN IV 08/11/24 08:45 Piperacillin Sod/ Tazobactam Sod 100 ml @ 25 mls/hr Q8HR IV 08/11/24 14:00 Potassium Chloride 100 ml @ 50 mls/hr Q2H IV 08/11/24 13:15 08/11/24 19:14 UNV Laboratory Results Laboratory Tests 08/11/24 06:21 Chemistry Test 08/11/24 06:21 Albumin 3.9 g/dL (3.2-4.8) Calcium Level Pending Magnesium Level 2.0 mg/dL (1.6-2.6) Total Protein 7.9 g/dL (5.7-8.2) LFT Test 08/11/24 06:21 Alanine Aminotransferase (ALT) 13 U/L (7-40) Alkaline Phosphatase 103 U/L (46-116) Aspartate Amino Transferase (AST) 23 U/L (13-40) Total Bilirubin 0.3 mg/dL (0.2-1.0) Urinalysis Test 08/10/24 03:46 Urine Color Light-yellow (Yellow) Urine Clarity Clear (Clear) Urine pH 7.0 (5.0-9.0) Urine Specific [place] 1.021 (1.001-1.035) Urine Protein 1+ (Negative) H Urine Ketones Negative (Negative) Urine Blood 1+ /uL (Negative) H Urine Nitrite Negative (Negative) Urine Bilirubin Negative (Negative) Urine Urobilinogen Normal mg/dL (Negative) Urine Leukocyte Esterase Negative /uL (Negative) Urine RBC 15 /hpf (0 - 4) Urine Microscopic WBC 3 /HPF (0-5) Urine Squamous Epithelial Cells None seen /hpf (<5) Urine Bacteria None seen /hpf (None Seen) Urine Glucose Normal mg/dL (Normal) Microbiology Microbiology Date/Time Source Procedure Growth Status 08/10/24 03:46 Voided Urine Urine Culture - Preliminary Resulted Labs and/or images reviewed: Labs reviewed by me, Image(s) reviewed by me Assessment/Plan Assessment/Plan Impression: -hypertensive crisis -metabolic encephalopathy -recent history of right knee septic arthritis , status post washing and removal of implant -hypokalemia -sepsis -atrial fibrillation -organic heart disease -history of CAD with PTCA Plan: -ortho consultation -continue nicardipine drip to keep systolic blood pressure less than 160 mmHg -patient was failed swallow evaluation, and clonidine 0.2 patch -potassium replacement -IV hydration -antiplatelet/anticoagulation per Cardiology -restart cefepime -blood culture -right knee ultrasound for possible effusion requiring drainage -repeat labs in a.m. Critical care time spent with patient discussing and formulating plan of care: 40 minutes. This does not include time spent performing procedures. This medical document was created using an electronic medical record system with [employer] system. Although this document has been carefully reviewed, there may still be some phonetic and typographical errors. These areas are purely typographical due to imperfections of the software programs, and do not reflect any compromise in the patient's medical care. Plan discussed with: Patient, Other (RN) Date of Service: Aug 11, 2024 Billing Provider: FRANKIE MUSTAFA NP Common Visit Codes: [id number] CARE 30-74 MIN FRANKIE MUSTAFA NP Aug 11, 2024 13:51
[2024-08-11] MEDS ORDERED: PIPERACILLIN-TAZOB 3.375GM 100 ML IV SCH (14:00)
--- NOTE | 2024-08-11 14:40 | DVH ---
Exam: US RIGHT LOWER EXTREMITY ULTRASOU Date: 08/11/2024 02:03 PM Clinical History: Right knee effusion Comparison: US RIGHT LOWER EXTREMITY ULTRASOU on DOS: 06/22/24 Findings: Targeted sonographic evaluation of the soft tissues of the right knee was obtained utilizing grayscal e and color Doppler imaging. Septated right knee effusion measuring 2 x 2 x 3 cm IMPRESSION: Septated right knee effusion measuring 2 x 2 x 3 cm END IMPRESSION:
--- NOTE | 2024-08-11 15:37 | DVH ---
MRI BRAIN WITHOUT CONTRAST CLINICAL HISTORY: stroke TECHNIQUE: Multiplanar, multisequence MR images of the brain without intravenous contrast. Comparison: None FINDINGS: There is no restricted diffusion. There is age concordant generalized parenchymal volume loss. There are mild chronic small-vessel white matter ischemic changes. There is no evidence of hemorrhage, mass , mass effect or midline shift. There is no hydrocephalus or extra-axial fluid collection. The visual ized intracranial vasculature demonstrates appropriate flow-voids. The sagittal midline structures ap pear unremarkable. The craniocervical junction is within normal limits. The calvarium demonstrates no rmal marrow signal. There is fluid in the right mastoid air cells. The left mastoid air cells in the paranasal sinuses are clear. IMPRESSION: 1. There is no acute intracranial process. 2. Fluid in the right mastoid air cells. HS:Y
[2024-08-11] MEDS: cloNIDine 0.2 mg/24hr 7DAY PATCH TD ONE (15:55)
--- NOTE | 2024-08-11 16:25 | DVHINCON2 ---
Date of service: Aug 11, 2024 History of Present Illness Chief complaint: ER consulted Orthopedic for patient who presented to emergency room with altered mental status. Patient with history of right knee PCI with explantation and spacer placement [address] García. 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 García. ER consult our orthopedic as patient was brought in by ambulance by her care facility for noted altered mental status she is currently I have diagnosis of metabolic encephalopathy uncontrolled hypertension to name a few. During my interview today patient is confused and unreliable historian. Patient report some right knee pain , she is unable to provide baseline range of motion of her knee, unable to verbalize right knee pain on scale of 10. Does not report any fever chills. Patient does have a history of PICC line after placement of the spacer for PGI and has been compliant with antibiotic use which was confirmed by the ER physician on my interview today Family History: Cancer G8 MOTHER UNCLE (LUNG CA) UNCLE (LEUKEMIA BRAIN CA) Family history: Cardiovascular disease G8 FATHER BROTHER Family history: Hypertension G8 FATHER AUNT BROTHER Ischemic heart disease G8 FATHER Psychiatric condition AUNT Allergies: Coded Allergies: NO KNOWN ALLERGIES (Unverified , 10/11/16) UNOBTAINABLE (Unverified , 08/10/24) Home Meds Reported Medications Potassium Chloride (Potassium Chloride ER) 20 Meq Tab, 1 TAB PO DAILY for 31 Days, #31 08/11/24 Lisinopril (Lisinopril) 40 Mg Tab, 1 TAB PO DAILY for 90 Days, #90 06/23/24 Amitriptyline HCl (Amitriptyline Hydrochlori) 100 Mg Tab, 1 TAB PO DAILY for 70 Days, #70 06/23/24 Sucralfate (Sucralfate) 1 Gm Tab, 1 TAB PO BID for 30 Days, #60 06/23/24 Ferrous Sulfate (Ferosul) 325 Mg Tab, 1 TAB PO BID for 30 Days, #60 06/23/24 Pantoprazole Sodium Sesquihydr (Pantoprazole Sodium Dr) 40 Mg Tab, 1 TAB PO BID for 90 Days, #180 06/23/24 Docusate Sodium (Docusate Sodium) 100 Mg Cap, 1 CAP PO BID for 30 Days, #60 06/23/24 Atorvastatin Calcium (Lipitor) 10 Mg Tab, 1 TAB PO DAILY for 90 Days, #90 06/23/24 Alprazolam (Alprazolam) 0.5 Mg Tab, 1 TAB PO BID for 30 Days, #60 24 Ondansetron HCl (Ondansetron Hydrochloride) 8 Mg Tab, 1 TAB PO BID PRN for NAUSEA / VOMITING for 30 Days, #60 06/23/24 Famotidine (Famotidine) 40 Mg Tab, 1 TAB PO BID for 90 Days, #180 06/23/24 Cholecalciferol (Gnp Vitamin D) 1,000 Unit Tab, 1 TAB PO DAILY for 90 Days, #90 06/23/24 Hydrocodone-Acetaminophen (Hydrocodone Bitartrate/AC 10-325 mg) 1 Tab Tab, 1 TAB PO BID, TAB 02/27/24 Diclofenac Sodium (Topical) (Voltaren Arthritis Pain) 1 % Gel, 1 % EX, GEL 02/27/24 Furosemide (Furosemide) 40 Mg Tab, 1 TAB PO BID for 90 Days, #180 02/27/24 Fluticasone Propionate (Fluticasone Propionate) 0.05 % Cre, 50 MCG SITA DAILY for 30 Days, MCG 02/27/24 Cyclobenzaprine Hcl (Cyclobenzaprine Hcl) 10 Mg Tab, 1 TAB PO BID for 30 Days, #60 02/27/24 Hydrochlorothiazide (Hydrochlorothiazide) 25 Mg Tab, 25 MG PO DAILY for 30 Days, MG 02/27/24 Diclofenac Sodium (Diclofenac Sodium Dr) 75 Mg Tab, 75 MG PO BID, TAB 02/27/24 Bupropion Hcl (Bupropion Hcl) 100 Mg Tab, 100 MG PO Q8HR for 30 Days, MG 02/27/24 Meclizine Hcl (Meclizine Hcl) 25 Mg Tab, 25 MG PO TID PRN for DIZZINESS for 30 Days, MG 02/27/24 Simvastatin (Simvastatin) 40 Mg Tab, 40 MG PO QPM for 30 Days 02/27/24 Carisoprodol (Carisoprodol) 350 Mg Tab, 350 MG PO QPM for 30 Days, MG 02/27/24 Tramadol Hcl (Tramadol Hcl) 50 Mg Tab, 50 MG PO BID, TAB 04/12/23 Pancrelipase (Lipase-Protease- (CREON) 36,000 Unt Cap, 1 CAP PO TID for 31 Days, #100 04/12/23 Loratadine (Loratadine) 10 Mg Cap, 10 MG PO, CAP 04/24/19 Metoprolol Succinate (Metoprolol Succinate Er) 25 Mg Tab, 25 MG PO DAILY, TAB 01/17/17 Levothyroxine Sodium (Levothyroxine Sodium) 75 Mcg Tab, 1 TAB PO DAILY for 90 Days, #90 12/24/16 Aspirin (Aspirin) 81 Mg Tab, 1 TAB PO DAILY for 90 Days, #90 12/24/16 Nitroglycerin (NTROSTAT SUBLINGUAL) 0.4 Mg Sl, 0.4 MG SL Q5MIN for FOR CHEST PAIN *MAY REPEAT EVERY 5 MINUTES X 3 TOTAL IF NO RELIEF, INITIATE ANALGESIC THERAPY. NOTIFY PHYSICIAN *Do not crush. 12/24/16 Discontinued Reported Medications Potassium Chloride (POTASSIUM CHLORIDE CR) 10 Meq Tb, 8 MEQ PO DAILY, TAB 02/27/24 Current Medications Current Medications Medications (Trade) Dose Ordered Sig/Irene Route PRN Reason Start Time Stop Time Status Last Admin Aspirin (Ecotrin Enteric Coated Tablet) 81 mg DAILY PO 08/11/24 10:00 Docusate Sodium (Colace Capsule) 100 mg BID PO 08/10/24 22:00 Furosemide (Lasix Tablet) 40 mg BID PO 08/10/24 22:00 Atorvastatin Calcium (Lipitor) 10 mg HS PO 08/10/24 22:00 Famotidine (Pepcid Tablet) 40 mg BID PO 08/10/24 22:00 Levothyroxine Sodium (Synthroid Tablet) 75 mcg DAILY PO 08/11/24 10:00 Lisinopril (Zestril Tablet) 40 mg DAILY PO 08/11/24 10:00 Enoxaparin Sodium (Lovenox) 40 mg DAILY SC 08/11/24 10:00 08/11/24 10:00 Nicardipine HCl 250 ml @ 50 mls/hr Q5H IV 08/10/24 17:30 08/11/24 15:33 Diagnostic Test (Pha) (Accu-Chek Comfort Curve T) 1 strip Q6HR 08/11/24 12:00 08/11/24 11:52 Insulin Human Regular (InsuLIN R) Q6HR SC 08/11/24 12:00 Dextrose 50 ml UD PRN IV Blood Sugar LESS THAN 60 08/11/24 08:45 Potassium Chloride 100 ml @ 50 mls/hr Q2H IV 08/11/24 08:45 08/11/24 12:44 DC 08/11/24 14:11 Piperacillin Sod/ Tazobactam Sod 100 ml @ 25 mls/hr Q8HR IV 08/11/24 14:00 08/11/24 13:48 DC Potassium Chloride 100 ml @ 50 mls/hr Q2H IV 08/11/24 13:15 08/11/24 19:14 UNV Cefepime HCl 50 ml @ 12.5 mls/hr Q12HR IV 08/11/24 14:00 Potassium Chloride/Sodium Chloride 1,000 ml @ 75 mls/hr [id number] IV 08/11/24 13:45 Vital Signs Vital Signs Date Time Temp Pulse Resp B/P (MAP) Pulse Ox O2 Delivery O2 Flow Rate FiO2 08/11/24 15:55 157/68 08/11/24 15:33 95 08/11/24 14:00 17 96 Room Air* 0 21 08/11/24 12:00 98.1 98.1 Physical Exam General: Alert but confused. No acute distress Right Knee exam Range of motion moderately reduced however do not know the baseline range of motion at this time, most probably reduced knee range of motion is chronic in nature Some discomfort noted with knee range of motion exam but no significant tenderness on palpation. Knee incision site is well healed with no erythema , mild edema, no drainage from the knee or from 2 areas of scabbing at the terminal ends of the incision. Systemic symptoms: No fever or chills Gross neurovascular intact otherwise Labs/Diagnostic Data Labs Test 08/11/24 11:51 08/11/24 06:21 08/10/24 03:46 08/10/24 01:27 Range/Units POC Glucose 118 H 70-106 mg/dl White Blood Count 11.5 H 4.4-10.8 10^3/uL Red Blood Count 3.19 L 4.0-5.20 10^6/uL Hemoglobin 8.8 L 12.2-16.2 g/dL Hematocrit 27.0 L 36.0-46.0 % Mean Corpuscular Volume 84.8 80.0-100.0 fL Mean Corpuscular Hemoglobin 27.6 L 28.0-32.0 pg Mean Corpuscular Hemoglobin Concent 32.6 32.0-36.0 g/dL Red Cell Distribution Width 22.6 H 11.8-14.3 % Platelet Count 574 H 140-450 10^3/uL Mean Platelet Volume 6.0 L 6.9-10.8 fL Neutrophils (%) (Auto) 73.3 37.0-80.0 % Lymphocytes (%) (Auto) 14.2 10.0-50.0 % Monocytes (%) (Auto) 11.5 0.0-12.0 % Eosinophils (%) (Auto) 0.6 0.0-7.0 % Basophils (%) (Auto) 0.4 0.0-2.0 % Neutrophils # (Auto) 8.5 1.6-8.6 10 ^3/uL Lymphocytes # (Auto) 1.6 0.4-5.4 10 ^3/uL Monocytes # (Auto) 1.3 0-1.3 10 ^3/uL Eosinophils # (Auto) 0.1 0-0.8 10 ^3/uL Basophils # (Auto) 0 0-0.2 10 ^3/uL Nucleated Red Blood Cells 0.1 % Erythrocyte Sedimentation Rate 66 H 0-20 mm/hr Sodium Level 140 136-145 mmol/L Potassium Level 3.0 L 3.5-5.1 mmol/L Chloride Level 105 98-107 mmol/L Carbon Dioxide Level 24 20-31 mmol/L Anion Gap 11 5-15 Blood Urea Nitrogen 21 9-23 mg/dL Creatinine 0.75 0.550-1.02 mg/dL Glomerular Filtration Rate Calc 78 >90 mL/min BUN/Creatinine Ratio 28.0 H 10.0-20.0 Serum Glucose 132 H 74-106 mg/dL Calcium Level 10.9 H 8.7-10.4 mg/dL Magnesium Level 2.0 1.6-2.6 mg/dL Total Bilirubin 0.3 0.2-1.0 mg/dL Aspartate Amino Transferase (AST) 23 13-40 U/L Alanine Aminotransferase (ALT) 13 7-40 U/L Alkaline Phosphatase 103 46-116 U/L Total Protein 7.9 5.7-8.2 g/dL Albumin 3.9 3.2-4.8 g/dL Urine Color Light-yellow Yellow Urine Clarity Clear Clear Urine pH 7.0 5.0-9.0 Urine Specific [place] 1.021 1.001-1.035 Urine Protein 1+ H Negative Urine Ketones Negative Negative Urine Blood 1+ H Negative /uL Urine Nitrite Negative Negative Urine Bilirubin Negative Negative Urine Urobilinogen Normal Negative mg/dL Urine Leukocyte Esterase Negative Negative /uL Urine RBC 15 0 - 4 /hpf Urine Microscopic WBC 3 0-5 /HPF Urine Squamous Epithelial Cells None seen <5 /hpf Urine Bacteria None seen None Seen /hpf Urine Glucose Normal Normal mg/dL Urine Opiates Screen Pos NEGATIVE Urine Fentanyl Screen Neg NEGATIVE Urine Barbiturates Screen Neg NEGATIVE Urine Phencyclidine Screen Neg NEGATIVE Urine Amphetamines Screen Neg NEGATIVE Urine Benzodiazepines Screen Pos NEGATIVE Urine Cocaine Screen Neg NEGATIVE Urine Cannabinoids Screen Neg NEGATIVE Lactic Acid Level 0.9 0.4-2.0 mmol/L Troponin I High Sensitivity 34 </=34 ng/L Lipase 29 12-53 U/L Parathyroid Hormone (Intact) 12.1 L 18.4-80.1 pg/mL Plasma/Serum Blood Alcohol < 3.0 <10 mg/dL Microbiology Date/Time Source Procedure Growth Status 08/10/24 03:46 Voided Urine Urine Culture - Preliminary Resulted Assessment A/P Right knee pain, 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 Ultrasound right knee was completed by ER physician which was reviewed small effusion a 3 cm 3 cm x 2 cm proximally noted. X-ray also reviewed no loosening of femoral component noted missing tibial component with spacer. No fractures noted Patient currently lacking systemic symptoms of fever chills worsening of pain swelling or discharge from the knee however some warmth is noted on the knee with elevated ESR of 66 Case was discussed with Dr. Ward Hopper Recommendations: As his time patient to continue PICC line with antibiotics, follow-up outpatient orthopedic clinic in next 2-4 weeks earlier if needed or worsening of signs and symptoms, ER return precaution for any worsening of right knee pain erythema drainage or if elevated CRP levels, fever chills or other concerns are noted Plan discussed with: Patient, Other (ER PROVIDER Managaing this patient.) IDRIS MENA Aug 11, 2024 16:25
[2024-08-11] MEDS: CEFEPIME 1GM/ 50ML 50 ML IV SCH (17:05)
[2024-08-11] MEDS: SOD CHL 0.9%/ KCL 20MEQ 1,000 ML IV SCH (21:00)
[2024-08-12] VITALS (83 sets, daily range): BP systolic 129–199; BP diastolic 50–108; PULSE 71–99; RESP 9–24; TEMP 98–98.8; O2SAT 82–100
[2024-08-12 06:08] LABS: Basophils # (auto) 0.1 10 ^3/uL (0-0.2); Eosinophils # (auto) 0.2 10 ^3/uL (0-0.8); Eosinophils % (auto) 1.4 % (0.0-7.0); Hemoglobin 9.2 g/dL (12.2-16.2); Mean Corpuscular Volume 85.7 fL (80.0-100.0); Neutrophils # (auto) 8.3 10 ^3/uL (1.6-8.6)
[2024-08-12 06:10] LABS: Basophils % (auto) 0.8 % (0.0-2.0); Hematocrit 29.4 % (36.0-46.0); Lymphocytes # (auto) 1.8 10 ^3/uL (0.4-5.4); Lymphocytes % (auto) 15.9 % (10.0-50.0); Mean Corpuscular Hemoglobin 26.8 pg (28.0-32.0); Mean Corpuscular Hgb Conc. 31.3 g/dL (32.0-36.0); Monocytes # (auto) 1.1 10 ^3/uL (0-1.3); Monocytes % (auto) 9.2 % (0.0-12.0); Neutrophils % (auto) 72.7 % (37.0-80.0); Platelet Count (auto) 624 10^3/uL (140-450); Red Blood Cells 3.43 10^6/uL (4.0-5.20); Red Cell Distribution Width 23.5 % (11.8-14.3); White Blood Cell 11.4 10^3/uL (4.4-10.8)
[2024-08-12 06:15] LABS: Sodium 142 mmol/L (136-145)
[2024-08-12 06:16] LABS: Anion Gap 10 (5-15); Calcium 10.1 mg/dL (8.7-10.4); Carbon Dioxide 22 mmol/L (20-31)
[2024-08-12 06:21] LABS: BUN/Creatinine Ratio 27.7 (10.0-20.0); Blood Urea Nitrogen 18 mg/dL (9-23); Glucose 102 mg/dL (74-106)
[2024-08-12 06:24] LABS: Chloride 110 mmol/L (98-107)
--- NOTE | 2024-08-12 11:02 | DVHPN2 ---
Subjective Patient denies any symptoms. Reviewed: Care Plan, H&P, Labs, Medications, Previous Orders Changes from previous H/P or p: No Changes General: Per HPI Eyes: No Pain, No Vision change, No Conjunctivae inflammation, No Eyelid inflammation, No Other, No Redness ENT: No Ear pain, No Ear discharge, No Nose pain, No Nose discharge, No Nose congestion, No Mouth pain, No Mouth swelling, No Throat pain, No Throat swelling, No Other Cardiovascular: No Chest Pain, No Palpitations, No Orthopnea, No Paroxysmal Noc. Dyspnea, No Edema, No Lt Headedness, No Other Respiratory: No Cough, No Dry, No Shortness of breath, No SOB with excertion, No Wheezing, No Hemoptysis, No Pleuritic Pain, No Sputum, No Other Gastrointestinal: No Nausea, No Vomiting, No Abdominal Pain, No Diarrhea, No Constipation, No Melena, No Hematochezia, No Other Genitourinary: No Dysuria, No Frequency, No Incontinence, No Hematuria, No Retention, No Other Musculoskeletal: No other, No neck pain, No shoulder pain, No arm pain, No back pain, No hand pain, No leg pain, No foot pain Skin: No Rash, No Lesions, No Jaundice, No Bruising, No Other Objective Vitals Vital Signs Date Time Temp Pulse Resp B/P (MAP) Pulse Ox O2 Delivery O2 Flow Rate FiO2 08/12/24 09:00 87 140/54 08/12/24 07:10 19 97 08/12/24 06:00 Room Air* 0 21 08/12/24 04:00 98.0 98.0 Intake/Output Intake and Output 08/12/24 07:00 Intake Total 2840 ml Output Total 1555 ml Balance 1285 ml Intake IV Total 2840 ml Output Urine Total 1555 ml # Bowel Movements 1 General Appearance: Alert, Oriented X3, Cooperative, mild distress HEENT: Atraumatic, PERRLA Lungs: Clear to auscultation, Normal air movement Cardiovascular: Normal S1, Normal S2 Abdomen: Normal bowel sounds Musculoskeletal: Normal sensory function, Normal motor function Neuro: Normal speech Skin: Dry, Intact Psych/Mental Status: Mental status NL, Mood NL Medications Current Medications Medications Dose Ordered Sig/Irene Route Start Time Stop Time Status Last Admin Dose Admin Alprazolam 0.5 mg BIDPRN PRN PO 08/10/24 11:15 Aspirin 81 mg DAILY PO 08/11/24 10:00 Docusate Sodium 100 mg BID PO 08/10/24 22:00 Furosemide 40 mg BID PO 08/10/24 22:00 Atorvastatin Calcium 10 mg HS PO 08/10/24 22:00 Famotidine 40 mg BID PO 08/10/24 22:00 Levothyroxine Sodium 75 mcg DAILY PO 08/11/24 10:00 Lisinopril 40 mg DAILY PO 08/11/24 10:00 Ondansetron HCl 4 mg Q4HP PRN IV 08/10/24 12:15 Enoxaparin Sodium 40 mg DAILY SC 08/11/24 10:00 08/11/24 10:00 40 MG Nitroglycerin 0.4 mg Q5MINP PRN SL 08/10/24 12:15 Morphine Sulfate 2 mg Q30M PRN IV 08/10/24 12:15 Nicardipine HCl 250 ml @ 50 mls/hr Q5H IV 08/10/24 17:30 08/12/24 09:00 150 MLS/HR Diagnostic Test (Pha) 1 strip Q6HR 08/11/24 12:00 08/12/24 05:15 1 STRIP Insulin Human Regular Q6HR SC 08/11/24 12:00 Dextrose 50 ml UD PRN IV 08/11/24 08:45 Potassium Chloride 100 ml @ 50 mls/hr Q2H IV 08/11/24 13:15 08/11/24 19:14 UNV Cefepime HCl 50 ml @ 12.5 mls/hr Q12HR IV 08/11/24 14:00 08/11/24 23:11 12.5 MLS/HR Potassium Chloride/Sodium Chloride 1,000 ml @ 75 mls/hr [id number] IV 08/11/24 13:45 08/11/24 21:00 75 MLS/HR Laboratory Results Laboratory Tests 08/12/24 05:40 Chemistry Test 08/12/24 05:40 Calcium Level 10.1 mg/dL (8.7-10.4) Urinalysis Test 08/10/24 03:46 Urine Color Light-yellow (Yellow) Urine Clarity Clear (Clear) Urine pH 7.0 (5.0-9.0) Urine Specific [place] 1.021 (1.001-1.035) Urine Protein 1+ (Negative) H Urine Ketones Negative (Negative) Urine Blood 1+ /uL (Negative) H Urine Nitrite Negative (Negative) Urine Bilirubin Negative (Negative) Urine Urobilinogen Normal mg/dL (Negative) Urine Leukocyte Esterase Negative /uL (Negative) Urine RBC 15 /hpf (0 - 4) Urine Microscopic WBC 3 /HPF (0-5) Urine Squamous Epithelial Cells None seen /hpf (<5) Urine Bacteria None seen /hpf (None Seen) Urine Glucose Normal mg/dL (Normal) Microbiology Microbiology Date/Time Source Procedure Growth Status 08/10/24 17:57 Blood Blood Culture - Preliminary NO GROWTH AFTER 24 HOURS OF INCUBATION. Resulted 08/10/24 03:46 Voided Urine Urine Culture - Preliminary Resulted Labs and/or images reviewed: Labs reviewed by me, Image(s) reviewed by me Assessment/Plan Assessment/Plan Impression: -hypertensive crisis -metabolic encephalopathy -recent history of right knee septic arthritis , status post washing and removal of implant -hypokalemia -sepsis -atrial fibrillation -organic heart disease -history of CAD with PTCA Plan: Events: Used to be in four on nicardipine drip. Patient is still not tolerating p.o.. Recommendations reviewed by Ortho. Blue amlodipine NPO of the medications -continue nicardipine drip to keep systolic blood pressure less than 160 mmHg , continue clonidine patch. Add labetalol IV q.2 hours in attempt to weaned off nicardipine drip. -patient was failed swallow evaluation -potassium replacement -IV hydration -antiplatelet/anticoagulation per Cardiology -continue cefepime -blood and urine cultures negative -right knee ultrasound with loculated effusion. No plans for joint aspiration. -repeat labs in a.m. Critical care time spent with patient discussing and formulating plan of care: 40 minutes. This does not include time spent performing procedures. This medical document was created using an electronic medical record system with [employer] dictation system. Although this document has been carefully reviewed, there may still be some phonetic and typographical errors. These areas are purely typographical due to imperfections of the software programs, and do not reflect any compromise in the patient's medical care. Plan discussed with: Patient, Other (RN) My Orders Orders - FRANKIE MUSTAFA [facility] ARCHITECT Procedure Category Date Status Time Right Lower Extremity US 08/11/24 Resulted Ultrasou 13:42 Cefepime 1gm/ 50ml PHA 08/11/24 In Process (Maxipime 1gm/50ml) 14:00 Sod Chl 0.9%/ Kcl PHA 08/11/24 In Process 20meq 13:45 Mrsa Screen BLAKE 08/11/24 In Process 16:30 Potassium Chloride PHA 08/12/24 In Process (Potassium Chloride). 08:30 Pantoprazole PHA 08/12/24 Verified (Protonix) 11:00 Furosemide Injection PHA 08/12/24 Verified (Lasix Injection) 11:00 Labetalol Hcl PHA 08/12/24 Verified (Labetalol Hcl) 11:00 * Swallow Request ST 08/12/24 Verified 10:55 Basic Metabolic Panel LAB 08/13/24 Verified 04:00 Date of Service: Aug 12, 2024 Billing Provider: FRANKIE MUSTAFA NP Common Visit Codes: [id number] CARE 30-74 MIN FRANKIE MUSTAFA NP Aug 12, 2024 11:02
[2024-08-12 11:52] LABS: INR 1.08 (0.9-1.15); Prothrombin Time 11.4 sec (9.3-11.8)
[2024-08-12] MEDS: FUROSEMIDE 40 MG/4 ML VIAL IV SCH (12:01)
[2024-08-12] MEDS: PANTOPRAZOLE 40 MG/10 ML VIAL INJ IV SCH (12:04)
[2024-08-12] MEDS: POTASSIUM CHLORIDE 40 MEQ, LIDOCAINE 1% (LOCAL ANESTH.) 4 ML in SODIUM CHL 0.9% 250 ML IV ONE (12:09)
[2024-08-12 13:08] LABS: CRP High Sensitivity 3.42 mg/dL (<1.0)
[2024-08-12] MEDS: FLEET ENEMA(ADULT) 135 ML PR ONE (14:00)
--- NOTE | 2024-08-12 14:06 | DVHPN2 ---
Progress Note - Dictate Date Seen: Aug 12, 2024 Medical Necessity Reason Pt with a Central, PICC or Fol: Yes The following are medically ne: Glass Catheter Subjective PT WITH REMOVAL OF KNEE PROSTHESIS SECONDARY TO SEPSIS RIGHT KNEE REPLACEMENT NOW WITH EFFUSION S/P ARTHROCENTESIS TOTAL RIGHT KNEE ARTHROPLASTY PT WITH SEVERE OSTEOARTHRITIS ORGANIC HEART DISEASE HTN CAD WITH HX OF PTCA STENT HX OF CHF HRpEF / DIASTOLIC AFIB HYPERCOAGULABLE STATE Respiratory: denies: cough, hemoptysis, orthopnea, SOB at rest, shortness of breath, SOB with exertion, stridor, wheezing, others Gastrointestinal: Reports: abdominal pain, diarrhea, melena, vomiting, denies; poor appetite, poor fluid intake; constipated, diarrhea, dysphagia, difficulty swallowing, hematemesis, melena, nausea, rectal bleeding, rectal pain, vomiting, others Genitourinary: denies: abnormal vagina bleeding, burning, dyspareunia, dysuria, flank pain, frequency, hematuria, incontinence, pain, , vagina discharge, urgency, others Neurological: denies: dizziness, fainting, headache, left sided numbness, left sided weakness, numbness, paresthesia, pre-existing deficit, right sided numbness, right sided weakness, seizure, speech problems, tingling, tremors, weakness, others Musculoskeletal: denies: back pain, gout, joint pain, joint swelling, muscle pain, muscle stiffness, neck pain, others Integumentary: Denies: bruises, change in color, change in hair/nails, dryness, laceration, lesions, lumps, rash, wounds, others Allergic/Immunocompromised: denies: Difficulty Healing, Frequent Infections, Hives, Itching, others Hematologic/Lymphatic: denies: anemia, blood clots, easy bleeding, easy bruising, swollen glands, others Endocrine: denies: excessive hunger, excessive sweating, excessive thirst, excessive urination, flushing, intolerance to cold, intolerance to heat, unexplained weight gain, unexplained weight loss, others vital signs Vital Sign Date Time Temp Pulse Resp B/P (MAP) Pulse Ox O2 Delivery O2 Flow Rate FiO2 08/12/24 13:30 91 22 156/66 (96) 97 08/12/24 12:00 Room Air* 0 21 08/12/24 08:00 98.4 98.4 Total Intake and Output 08/11/24 08/11/2425 15:00 23:00 07:00 Intake Total 865 ml 675 ml 1300 ml Output Total 830 ml 725 ml Balance 865 ml -155 ml 575 ml medications Current Medications Medications Dose Ordered Sig/Irene Route Start Time Stop Time Status Last Admin Dose Admin Alprazolam 0.5 mg BIDPRN PRN PO 08/10/24 11:15 Docusate Sodium 100 mg BID PO 08/10/24 22:00 Atorvastatin Calcium 10 mg HS PO 08/10/24 22:00 Ondansetron HCl 4 mg Q4HP PRN IV 08/10/24 12:15 Enoxaparin Sodium 40 mg DAILY SC 08/11/24 10:00 08/12/24 12:03 40 MG Nitroglycerin 0.4 mg Q5MINP PRN SL 08/10/24 12:15 Morphine Sulfate 2 mg Q30M PRN IV 08/10/24 12:15 Diagnostic Test (Pha) 1 strip Q6HR 08/11/24 12:00 08/12/24 12:00 1 STRIP Insulin Human Regular Q6HR SC 08/11/24 12:00 Dextrose 50 ml UD PRN IV 08/11/24 08:45 Potassium Chloride 100 ml @ 50 mls/hr Q2H IV 08/11/24 13:15 08/11/24 19:14 UNV Cefepime HCl 50 ml @ 12.5 mls/hr Q12HR IV 08/11/24 14:00 08/12/24 12:03 12.5 MLS/HR Potassium Chloride/Sodium Chloride 1,000 ml @ 75 mls/hr [id number] IV 08/11/24 13:45 08/11/24 21:00 75 MLS/HR Pantoprazole Sodium 40 mg DAILY IV 08/12/24 11:00 08/12/24 12:04 40 MG Furosemide 40 mg DAILY IV 08/12/24 11:00 08/12/24 12:01 40 MG Labetalol HCl 20 mg Q2HPRN PRN IV 08/12/24 11:00 objective HEENT: Head is atraumatic normocephalic, eyes PERRLA, ENT oropharynx moist and clear, neck supple, no tenderness, trachea midline, no masses no JVD. Chest: Denies chest pain, no diaphoresis, no mass adenopathy, no tenderness. Cardiac: Regular rate and rhythm, S1-S2 normal, no murmurs, no rubs or gallops. Pulmonary: No shortness of breath, lungs are clear to auscultation bilaterally, no wheezing, no rales or rhonchi. Abdomen: Soft, tender, nondistended, no masses, bowel sounds positive. Genitourinary: Denies dysuria, no urinary frequency, no hematuria. Skin: Skin warm and dry to touch no rash or lesion, no ulceration. Extremities: No clubbing, no edema, no tenderness, no varicosity. Neurologic: Grossly intact, no new focal motor deficit, no numbness or tingling. laboratory and microbiology Laboratory Tests 08/12/24 05:40 Test 08/12/24 05:40 Range/Units Serum Glucose 102 74-106 mg/dL Problem List SEPTIC JOINT S/P EXPLANTATION OF RIGHT KNEE PROSTHESIS WITH SPACERS NOW WITH CONFUSION METABOLIC ENCEPHALOPATHY SEVERE OSTEOARTHRITIS RIGHT KNEE EFFUSION LEUKOCYTOSIS ANEMIA PMH ORGANIC HEART DISEASE HTN CAD WITH HX OF PTCA STENT HX OF CHF HRpEF / DIASTOLIC AFIB HYPERCOAGULABLE STATE HYPOKALEMIA SEVERE CACHEXIA HYPERCALCEMIA Assessment/Plan ABX BLOOD CX ABG CXR IV FLUID LASIX TREAT HYPERCALCEMIA IMPROVING TO 10.7 CONSTIPATION FLEETS CALCIUM CORRECTED Plan discussed with: Patient ANISH DIAZ MD Aug 12, 2024 14:06
[2024-08-12 14:33] LABS: Base Excess -1.2 mmol/L (-2.0-3.0)
[2024-08-12] MEDS: LABETALOL HCL 20 MG/4 ML VL IV PRN (15:28)
[2024-08-12] MEDS: LISINOPRIL 20 MG TAB PO ONE (17:03)
[2024-08-12] MEDS: METOPROLOL TARTRATE 50 MG TAB PO SCH (17:03)
[2024-08-13] VITALS (14 sets, daily range): BP systolic 104–220; BP diastolic 54–97; PULSE 63–82; RESP 15–21; TEMP 98.1–99.6; O2SAT 96–100
[2024-08-13 07:39] LABS: Basophils # (auto) 0.1 10 ^3/uL (0-0.2); Basophils % (auto) 0.8 % (0.0-2.0); Eosinophils # (auto) 0.1 10 ^3/uL (0-0.8); Eosinophils % (auto) 0.6 % (0.0-7.0); Hematocrit 26.7 % (36.0-46.0); Hemoglobin 8.7 g/dL (12.2-16.2); Lymphocytes # (auto) 1.7 10 ^3/uL (0.4-5.4); Mean Corpuscular Hemoglobin 28.2 pg (28.0-32.0); Mean Corpuscular Hgb Conc. 32.6 g/dL (32.0-36.0); Mean Corpuscular Volume 86.5 fL (80.0-100.0); Monocytes # (auto) 1.3 10 ^3/uL (0-1.3); Monocytes % (auto) 13.8 % (0.0-12.0); Neutrophils # (auto) 6.4 10 ^3/uL (1.6-8.6); Neutrophils % (auto) 66.8 % (37.0-80.0); Nucleated Red Blood Cells % 0.1 %; Platelet Count (auto) 480 10^3/uL (140-450); Red Blood Cells 3.08 10^6/uL (4.0-5.20); White Blood Cell 9.6 10^3/uL (4.4-10.8)
[2024-08-13 07:50] LABS: Anion Gap 10 (5-15); Calcium 10.1 mg/dL (8.7-10.4); Carbon Dioxide 20 mmol/L (20-31); Potassium 3.8 mmol/L (3.5-5.1); Sodium 143 mmol/L (136-145)
[2024-08-13 07:53] LABS: Chloride 113 mmol/L (98-107)
[2024-08-13 07:55] LABS: BUN/Creatinine Ratio 26.7 (10.0-20.0)
[2024-08-13 07:56] LABS: Blood Urea Nitrogen 24 mg/dL (9-23); Glucose 114 mg/dL (74-106)
--- NOTE | 2024-08-13 08:18 | DVHPN2 ---
Subjective Patient denies any symptoms. Reviewed: Care Plan, H&P, Labs, Medications, Previous Orders Changes from previous H/P or p: No Changes General: Per HPI Eyes: No Pain, No Vision change, No Conjunctivae inflammation, No Eyelid inflammation, No Other, No Redness ENT: No Ear pain, No Ear discharge, No Nose pain, No Nose discharge, No Nose congestion, No Mouth pain, No Mouth swelling, No Throat pain, No Throat swelling, No Other Cardiovascular: No Chest Pain, No Palpitations, No Orthopnea, No Paroxysmal Noc. Dyspnea, No Edema, No Lt Headedness, No Other Respiratory: No Cough, No Dry, No Shortness of breath, No SOB with excertion, No Wheezing, No Hemoptysis, No Pleuritic Pain, No Sputum, No Other Gastrointestinal: No Nausea, No Vomiting, No Abdominal Pain, No Diarrhea, No Constipation, No Melena, No Hematochezia, No Other Genitourinary: No Dysuria, No Frequency, No Incontinence, No Hematuria, No Retention, No Other Musculoskeletal: No other, No neck pain, No shoulder pain, No arm pain, No back pain, No hand pain, No leg pain, No foot pain Skin: No Rash, No Lesions, No Jaundice, No Bruising, No Other Objective Vitals Vital Signs Date Time Temp Pulse Resp B/P (MAP) Pulse Ox O2 Delivery O2 Flow Rate FiO2 08/13/24 06:57 68 172/80 08/13/24 06:40 20 08/13/24 06:00 Room Air* 0 21 08/13/24 05:00 98.2 96 98.2 Intake/Output Intake and Output 08/13/24 07:00 Intake Total 2124 ml Output Total 2100 ml Balance 24 ml Intake Oral 350 ml IV Total 1774 ml Output Urine Total 2100 ml General Appearance: Alert, Oriented X3, Cooperative, mild distress HEENT: Atraumatic, PERRLA Lungs: Clear to auscultation, Normal air movement Cardiovascular: Normal S1, Normal S2 Abdomen: Normal bowel sounds Musculoskeletal: Normal sensory function, Normal motor function Neuro: Normal speech Skin: Dry, Intact Psych/Mental Status: Mental status NL, Mood NL Medications Current Medications Medications Dose Ordered Sig/Irene Route Start Time Stop Time Status Last Admin Dose Admin Alprazolam 0.5 mg BIDPRN PRN PO 08/10/24 11:15 Docusate Sodium 100 mg BID PO 08/10/24 22:00 08/12/24 22:16 100 MG Atorvastatin Calcium 10 mg HS PO 08/10/24 22:00 08/12/24 22:15 10 MG Ondansetron HCl 4 mg Q4HP PRN IV 08/10/24 12:15 Enoxaparin Sodium 40 mg DAILY SC 08/11/24 10:00 08/12/24 12:03 40 MG Nitroglycerin 0.4 mg Q5MINP PRN SL 08/10/24 12:15 Morphine Sulfate 2 mg Q30M PRN IV 08/10/24 12:15 Diagnostic Test (Pha) 1 strip Q6HR 08/11/24 12:00 08/13/24 05:51 1 STRIP Insulin Human Regular Q6HR SC 08/11/24 12:00 Dextrose 50 ml UD PRN IV 08/11/24 08:45 Potassium Chloride 100 ml @ 50 mls/hr Q2H IV 08/11/24 13:15 08/11/24 19:14 UNV Cefepime HCl 50 ml @ 12.5 mls/hr Q12HR IV 08/11/24 14:00 08/12/24 22:18 12.5 MLS/HR Potassium Chloride/Sodium Chloride 1,000 ml @ 75 mls/hr [id number] IV 08/11/24 13:45 08/13/24 05:50 75 MLS/HR Furosemide 40 mg DAILY IV 08/12/24 11:00 08/12/24 12:01 40 MG Labetalol HCl 20 mg Q2HPRN PRN IV 08/12/24 11:00 08/13/24 05:57 20 MG Metoprolol Tartrate 50 mg BID PO 08/12/24 16:15 08/12/24 22:18 50 MG Lisinopril 40 mg DAILY PO 08/13/24 10:00 Patient Own Medication 1 tab DAILY PO 08/13/24 10:00 UNV Laboratory Results Laboratory Tests 08/13/24 06:34 Chemistry Test 08/13/24 06:34 Calcium Level 10.1 mg/dL (8.7-10.4) Coagulation Test 08/12/24 11:16 Prothrombin Time 11.4 sec (9.3-11.8) Prothrombin Time INR 1.08 (0.9-1.15) Urinalysis Test 08/10/24 03:46 Urine Color Light-yellow (Yellow) Urine Clarity Clear (Clear) Urine pH 7.0 (5.0-9.0) Urine Specific [place] 1.021 (1.001-1.035) Urine Protein 1+ (Negative) H Urine Ketones Negative (Negative) Urine Blood 1+ /uL (Negative) H Urine Nitrite Negative (Negative) Urine Bilirubin Negative (Negative) Urine Urobilinogen Normal mg/dL (Negative) Urine Leukocyte Esterase Negative /uL (Negative) Urine RBC 15 /hpf (0 - 4) Urine Microscopic WBC 3 /HPF (0-5) Urine Squamous Epithelial Cells None seen /hpf (<5) Urine Bacteria None seen /hpf (None Seen) Urine Glucose Normal mg/dL (Normal) Blood Gas Results Test 08/12/24 14:18 Arterial Blood pH 7.500 (7.350-7.450) FiO2 % 21.0 Microbiology Microbiology Date/Time Source Procedure Growth Status 08/11/24 16:30 Nose MRSA Screen - Final Complete 08/10/24 17:57 Blood Blood Culture - Preliminary NO GROWTH AFTER 48 HOURS OF INCUBATION. Resulted 08/10/24 03:46 Voided Urine Urine Culture - Preliminary Resulted Labs and/or images reviewed: Labs reviewed by me, Image(s) reviewed by me Assessment/Plan Assessment/Plan Impression: -hypertensive crisis -metabolic encephalopathy -recent history of right knee septic arthritis , status post washing and removal of implant -hypokalemia -sepsis -atrial fibrillation -organic heart disease -history of CAD with PTCA Plan: Events: Patient now tolerating oral intake,. Diet. Restart p.o. antihypertensives. Nicardipine was weaned off yesterday afternoon with the patient transferred to telemetry floor. Continues to be hypertensive. Continue metoprolol as well as lisinopril with labetalol IV for breakthrough hypertension. -stop IV fluids -antiplatelet/anticoagulation per Cardiology -continue cefepime -blood and urine cultures negative -right knee ultrasound with loculated effusion. No plans for joint aspiration. -social service consultation for reestablishing IV antibiotic therapy as well as transferred back to [place] [facility]. Total time spent with patient discussing and formulating plan of care: 35 minutes. This medical document was created using an electronic medical record system with [employer] dictation system. Although this document has been carefully reviewed, there may still be some phonetic and typographical errors. These areas are purely typographical due to imperfections of the software programs, and do not reflect any compromise in the patient's medical care. Plan discussed with: Patient, Other (RN) My Orders Orders - FRANKIE MUSTAFA NP Procedure Category Date Status Time Furosemide Injection PHA 08/12/24 In Process (Lasix Injection) 11:00 Labetalol Hcl PHA 08/12/24 In Process (Labetalol Hcl) 11:00 * Swallow Request ST 08/12/24 Transmitted 10:55 Pureed DIET 08/12/24 Transmitted Dinner Metoprolol Tartrate PHA 08/12/24 In Process Tablet (Lopressor Ta 16:15 Lisinopril Tablet PHA 08/13/24 In Process (Zestril Tablet) 10:00 Transfer Orders XFER 08/12/24 Transmitted 16:27 (Nf) Levothyroxine PHA 08/13/24 Logged Sodium 10:00 Date of Service: Aug 13, 2024 Billing Provider: FRANKIE MUSTAFA NP Common Visit Codes: [id number] INP/OBS CARE(HIGH) FRANKIE MUSTAFA NP Aug 13, 2024 08:18
[2024-08-13] MEDS: LISINOPRIL 20 MG TAB PO SCH (09:20)
[2024-08-13] MEDS ORDERED: PATIENTS OWN MEDICATION (Levothyroxine Sodium 1 TAB) PO SCH (10:00)
--- NOTE | 2024-08-13 10:48 | DVHPN2 ---
Progress Note - Dictate Date Seen: Aug 13, 2024 Medical Necessity Reason Pt with a Central, PICC or Fol: Yes The following are medically ne: Glass Catheter Subjective PT WITH REMOVAL OF KNEE PROSTHESIS SECONDARY TO SEPSIS RIGHT KNEE REPLACEMENT NOW WITH EFFUSION S/P ARTHROCENTESIS TOTAL RIGHT KNEE ARTHROPLASTY PT WITH SEVERE OSTEOARTHRITIS ORGANIC HEART DISEASE HTN CAD WITH HX OF PTCA STENT HX OF CHF HRpEF / DIASTOLIC AFIB HYPERCOAGULABLE STATE Respiratory: denies: cough, hemoptysis, orthopnea, SOB at rest, shortness of breath, SOB with exertion, stridor, wheezing, others Gastrointestinal: Reports: abdominal pain, diarrhea, melena, vomiting, denies; poor appetite, poor fluid intake; constipated, diarrhea, dysphagia, difficulty swallowing, hematemesis, melena, nausea, rectal bleeding, rectal pain, vomiting, others Genitourinary: denies: abnormal vagina bleeding, burning, dyspareunia, dysuria, flank pain, frequency, hematuria, incontinence, pain, , vagina discharge, urgency, others Neurological: denies: dizziness, fainting, headache, left sided numbness, left sided weakness, numbness, paresthesia, pre-existing deficit, right sided numbness, right sided weakness, seizure, speech problems, tingling, tremors, weakness, others Musculoskeletal: denies: back pain, gout, joint pain, joint swelling, muscle pain, muscle stiffness, neck pain, others Integumentary: Denies: bruises, change in color, change in hair/nails, dryness, laceration, lesions, lumps, rash, wounds, others Allergic/Immunocompromised: denies: Difficulty Healing, Frequent Infections, Hives, Itching, others Hematologic/Lymphatic: denies: anemia, blood clots, easy bleeding, easy bruising, swollen glands, others Endocrine: denies: excessive hunger, excessive sweating, excessive thirst, excessive urination, flushing, intolerance to cold, intolerance to heat, unexplained weight gain, unexplained weight loss, others vital signs Vital Sign Date Time Temp Pulse Resp B/P (MAP) Pulse Ox O2 Delivery O2 Flow Rate FiO2 08/13/24 09:20 187/83 08/13/24 09:19 73 08/13/24 08:10 Room Air* 0 21 08/13/24 06:40 20 08/13/24 05:00 98.2 96 98.2 Total Intake and Output 2/12/25 2/12/25 2/13/25 15:00 23:00 07:00 Intake Total 975 ml 849 ml 300 ml Output Total 2100 ml Balance 975 ml -1251 ml 300 ml medications Current Medications Medications Dose Ordered Sig/Irene Route Start Time Stop Time Status Last Admin Dose Admin Alprazolam 0.5 mg BIDPRN PRN PO 08/10/24 11:15 Docusate Sodium 100 mg BID PO 08/10/24 22:00 08/13/24 09:19 100 MG Atorvastatin Calcium 10 mg HS PO 08/10/24 22:00 08/12/24 22:15 10 MG Ondansetron HCl 4 mg Q4HP PRN IV 08/10/24 12:15 Enoxaparin Sodium 40 mg DAILY SC 08/11/24 10:00 08/13/24 09:20 40 MG Nitroglycerin 0.4 mg Q5MINP PRN SL 08/10/24 12:15 Morphine Sulfate 2 mg Q30M PRN IV 08/10/24 12:15 Diagnostic Test (Pha) 1 strip Q6HR 08/11/24 12:00 08/13/24 05:51 1 STRIP Insulin Human Regular Q6HR SC 08/11/24 12:00 Dextrose 50 ml UD PRN IV 08/11/24 08:45 Potassium Chloride 100 ml @ 50 mls/hr Q2H IV 08/11/24 13:15 08/11/24 19:14 UNV Cefepime HCl 50 ml @ 12.5 mls/hr Q12HR IV 08/11/24 14:00 08/13/24 09:19 12.5 MLS/HR Furosemide 40 mg DAILY IV 08/12/24 11:00 08/13/24 09:19 40 MG Labetalol HCl 20 mg Q2HPRN PRN IV 08/12/24 11:00 08/13/24 09:18 20 MG Metoprolol Tartrate 50 mg BID PO 08/12/24 16:15 08/13/24 09:19 50 MG Lisinopril 40 mg DAILY PO 08/13/24 10:00 08/13/24 09:20 40 MG Patient Own Medication 1 tab DAILY PO 08/13/24 10:00 UNV Levothyroxine Sodium 25 mcg QAM PO 08/14/24 07:00 Levothyroxine Sodium 50 mcg QAM PO 08/14/24 07:00 objective HEENT: Head is atraumatic normocephalic, eyes PERRLA, ENT oropharynx moist and clear, neck supple, no tenderness, trachea midline, no masses no JVD. Chest: Denies chest pain, no diaphoresis, no mass adenopathy, no tenderness. Cardiac: Regular rate and rhythm, S1-S2 normal, no murmurs, no rubs or gallops. Pulmonary: No shortness of breath, lungs are clear to auscultation bilaterally, no wheezing, no rales or rhonchi. Abdomen: Soft, tender, nondistended, no masses, bowel sounds positive. Genitourinary: Denies dysuria, no urinary frequency, no hematuria. Skin: Skin warm and dry to touch no rash or lesion, no ulceration. Extremities: No clubbing, no edema, no tenderness, no varicosity. Neurologic: Grossly intact, no new focal motor deficit, no numbness or tingling. laboratory and microbiology Laboratory Tests 08/13/24 06:34 Test 08/13/24 06:34 Range/Units Serum Glucose 114 H 74-106 mg/dL Problem List SEPTIC JOINT S/P EXPLANTATION OF RIGHT KNEE PROSTHESIS WITH SPACERS NOW WITH CONFUSION METABOLIC ENCEPHALOPATHY SEVERE OSTEOARTHRITIS RIGHT KNEE EFFUSION LEUKOCYTOSIS ANEMIA PMH ORGANIC HEART DISEASE HTN CAD WITH HX OF PTCA STENT HX OF CHF HRpEF / DIASTOLIC AFIB HYPERCOAGULABLE STATE HYPOKALEMIA SEVERE CACHEXIA HYPERCALCEMIA Assessment/Plan ABX BLOOD CX ABG CXR IV FLUID LASIX TREAT HYPERCALCEMIA IMPROVING TO 10.7 CONSTIPATION FLEETS CALCIUM CORRECTED HYPERVENTILATION PT Plan discussed with: Patient Critical Care Time(min): 35 ANISH DIAZ MD Aug 13, 2024 10:48
[2024-08-13] MEDS: ALPRAZolam 0.5 MG TAB PO PRN (21:38)
[2024-08-14] VITALS (8 sets, daily range): BP systolic 159–179; BP diastolic 64–87; PULSE 58–78; RESP 16–19; TEMP 97.5–98.2; O2SAT 86–100
[2024-08-14] MEDS: LEVOTHYROXINE SODIUM 50 MCG TAB PO SCH (06:18)
[2024-08-14] MEDS: LEVOTHYROXINE SODIUM 25 MCG TAB PO SCH (06:19)
[2024-08-14] MEDS: hydrOXYzine 25 MG TAB or CAP PO ONE (07:57)
[2024-08-14] MEDS ORDERED: HALOPERIDOL 1 MG TAB PO PRN (13:30)
[2024-08-14] MEDS: HALOPERIDOL 1 MG TAB PO PRN (13:57)
[2024-08-14] MEDS: HALOPERIDOL 5 MG TAB ONE (14:17)
--- NOTE | 2024-08-14 14:25 | DVHPN2 ---
Progress Note - Dictate Date Seen: Aug 14, 2024 Medical Necessity Reason Pt with a Central, PICC or Fol: Yes The following are medically ne: Glass Catheter Subjective PT WITH REMOVAL OF KNEE PROSTHESIS SECONDARY TO SEPSIS RIGHT KNEE REPLACEMENT NOW WITH EFFUSION S/P ARTHROCENTESIS TOTAL RIGHT KNEE ARTHROPLASTY PT WITH SEVERE OSTEOARTHRITIS ORGANIC HEART DISEASE HTN CAD WITH HX OF PTCA STENT HX OF CHF HRpEF / DIASTOLIC AFIB HYPERCOAGULABLE STATE Respiratory: denies: cough, hemoptysis, orthopnea, SOB at rest, shortness of breath, SOB with exertion, stridor, wheezing, others Gastrointestinal: Reports: abdominal pain, diarrhea, melena, vomiting, denies; poor appetite, poor fluid intake; constipated, diarrhea, dysphagia, difficulty swallowing, hematemesis, melena, nausea, rectal bleeding, rectal pain, vomiting, others Genitourinary: denies: abnormal vagina bleeding, burning, dyspareunia, dysuria, flank pain, frequency, hematuria, incontinence, pain, , vagina discharge, urgency, others Neurological: denies: dizziness, fainting, headache, left sided numbness, left sided weakness, numbness, paresthesia, pre-existing deficit, right sided numbness, right sided weakness, seizure, speech problems, tingling, tremors, weakness, others Musculoskeletal: denies: back pain, gout, joint pain, joint swelling, muscle pain, muscle stiffness, neck pain, others Integumentary: Denies: bruises, change in color, change in hair/nails, dryness, laceration, lesions, lumps, rash, wounds, others Allergic/Immunocompromised: denies: Difficulty Healing, Frequent Infections, Hives, Itching, others Hematologic/Lymphatic: denies: anemia, blood clots, easy bleeding, easy bruising, swollen glands, others Endocrine: denies: excessive hunger, excessive sweating, excessive thirst, excessive urination, flushing, intolerance to cold, intolerance to heat, unexplained weight gain, unexplained weight loss, others vital signs Vital Sign Date Time Temp Pulse Resp B/P (MAP) Pulse Ox O2 Delivery O2 Flow Rate FiO2 08/14/24 12:39 98.0 60 17 159/64 (95) 86 98.0 08/14/24 08:00 Room Air* 0 21 Total Intake and Output 08/13/24 08/13/24 08/14/24 15:00 23:00 07:00 Intake Total 150 ml 660 ml 250 ml Output Total 700 ml 650 ml Balance 150 ml -40 ml -400 ml medications Current Medications Medications Dose Ordered Sig/Irene Route Start Time Stop Time Status Last Admin Dose Admin Alprazolam 0.5 mg BIDPRN PRN PO 08/10/24 11:15 08/14/24 06:47 0.5 MG Docusate Sodium 100 mg BID PO 08/10/24 22:00 08/14/24 09:27 100 MG Atorvastatin Calcium 10 mg HS PO 08/10/24 22:00 08/13/24 21:38 10 MG Ondansetron HCl 4 mg Q4HP PRN IV 08/10/24 12:15 Enoxaparin Sodium 40 mg DAILY SC 08/11/24 10:00 08/14/24 09:31 40 MG Nitroglycerin 0.4 mg Q5MINP PRN SL 08/10/24 12:15 Morphine Sulfate 2 mg Q30M PRN IV 08/10/24 12:15 Diagnostic Test (Pha) 1 strip Q6HR 08/11/24 12:00 08/14/24 06:05 1 STRIP Insulin Human Regular Q6HR SC 08/11/24 12:00 Dextrose 50 ml UD PRN IV 08/11/24 08:45 Potassium Chloride 100 ml @ 50 mls/hr Q2H IV 08/11/24 13:15 08/11/24 19:14 UNV Cefepime HCl 50 ml @ 12.5 mls/hr Q12HR IV 08/11/24 14:00 08/14/24 09:27 12.5 MLS/HR Furosemide 40 mg DAILY IV 08/12/24 11:00 08/14/24 09:27 40 MG Labetalol HCl 20 mg Q2HPRN PRN IV 08/12/24 11:00 08/13/24 17:36 20 MG Metoprolol Tartrate 50 mg BID PO 08/12/24 16:15 08/14/24 09:30 50 MG Lisinopril 40 mg DAILY PO 08/13/24 10:00 08/14/24 09:28 40 MG Patient Own Medication 1 tab DAILY PO 08/13/24 10:00 UNV Levothyroxine Sodium 25 mcg QAM PO 08/14/24 07:00 08/14/24 06:19 25 MCG Levothyroxine Sodium 50 mcg QAM PO 08/14/24 07:00 08/14/24 06:18 50 MCG Haloperidol 2.5 mg Q8HPRN PRN PO 08/14/24 14:00 objective HEENT: Head is atraumatic normocephalic, eyes PERRLA, ENT oropharynx moist and clear, neck supple, no tenderness, trachea midline, no masses no JVD. Chest: Denies chest pain, no diaphoresis, no mass adenopathy, no tenderness. Cardiac: Regular rate and rhythm, S1-S2 normal, no murmurs, no rubs or gallops. Pulmonary: No shortness of breath, lungs are clear to auscultation bilaterally, no wheezing, no rales or rhonchi. Abdomen: Soft, tender, nondistended, no masses, bowel sounds positive. Genitourinary: Denies dysuria, no urinary frequency, no hematuria. Skin: Skin warm and dry to touch no rash or lesion, no ulceration. Extremities: No clubbing, no edema, no tenderness, no varicosity. Neurologic: Grossly intact, no new focal motor deficit, no numbness or tingling. laboratory and microbiology Laboratory Tests 08/13/24 06:34 Test 08/13/24 06:34 Range/Units Serum Glucose 114 H 74-106 mg/dL Problem List SEPTIC JOINT S/P EXPLANTATION OF RIGHT KNEE PROSTHESIS WITH SPACERS NOW WITH CONFUSION METABOLIC ENCEPHALOPATHY SEVERE OSTEOARTHRITIS RIGHT KNEE EFFUSION LEUKOCYTOSIS ANEMIA PMH ORGANIC HEART DISEASE HTN CAD WITH HX OF PTCA STENT HX OF CHF HRpEF / DIASTOLIC AFIB HYPERCOAGULABLE STATE HYPOKALEMIA SEVERE [place] HYPERCALCEMIA Assessment/Plan ABX BLOOD CX ABG CXR IV FLUID LASIX TREAT HYPERCALCEMIA IMPROVING TO 10.7 CONSTIPATION FLEETS CALCIUM CORRECTED HYPERVENTILATION PT Plan discussed with: Patient ANISH DIAZ MD Aug 14, 2024 14:25
--- NOTE | 2024-08-14 15:09 | DVHPN2 ---
Subjective Patient denies any symptoms. Reviewed: Care Plan, H&P, Labs, Medications, Previous Orders Changes from previous H/P or p: No Changes General: Per HPI Eyes: No Pain, No Vision change, No Conjunctivae inflammation, No Eyelid inflammation, No Other, No Redness ENT: No Ear pain, No Ear discharge, No Nose pain, No Nose discharge, No Nose congestion, No Mouth pain, No Mouth swelling, No Throat pain, No Throat swelling, No Other Cardiovascular: No Chest Pain, No Palpitations, No Orthopnea, No Paroxysmal Noc. Dyspnea, No Edema, No Lt Headedness, No Other Respiratory: No Cough, No Dry, No Shortness of breath, No SOB with excertion, No Wheezing, No Hemoptysis, No Pleuritic Pain, No Sputum, No Other Gastrointestinal: No Nausea, No Vomiting, No Abdominal Pain, No Diarrhea, No Constipation, No Melena, No Hematochezia, No Other Genitourinary: No Dysuria, No Frequency, No Incontinence, No Hematuria, No Retention, No Other Musculoskeletal: No other, No neck pain, No shoulder pain, No arm pain, No back pain, No hand pain, No leg pain, No foot pain Skin: No Rash, No Lesions, No Jaundice, No Bruising, No Other Objective Vitals Vital Signs Date Time Temp Pulse Resp B/P (MAP) Pulse Ox O2 Delivery O2 Flow Rate FiO2 08/14/24 12:39 98.0 60 17 159/64 (95) 86 98.0 08/14/24 08:00 Room Air* 0 21 Intake/Output Intake and Output 08/14/24 07:00 Intake Total 1060 ml Output Total 1350 ml Balance -290 ml Intake Oral 860 ml IV Total 200 ml Output Urine Total 1350 ml # Bowel Movements 4 General Appearance: Alert, Oriented X3, Cooperative, mild distress HEENT: Atraumatic, PERRLA Lungs: Clear to auscultation, Normal air movement Cardiovascular: Normal S1, Normal S2 Abdomen: Normal bowel sounds Musculoskeletal: Normal sensory function, Normal motor function Neuro: Normal speech Skin: Dry, Intact Psych/Mental Status: Mental status NL, Mood NL Medications Current Medications Medications Dose Ordered Sig/Irene Route Start Time Stop Time Status Last Admin Dose Admin Alprazolam 0.5 mg BIDPRN PRN PO 08/10/24 11:15 08/14/24 06:47 0.5 MG Docusate Sodium 100 mg BID PO 08/10/24 22:00 08/14/24 09:27 100 MG Atorvastatin Calcium 10 mg HS PO 08/10/24 22:00 08/13/24 21:38 10 MG Ondansetron HCl 4 mg Q4HP PRN IV 08/10/24 12:15 Enoxaparin Sodium 40 mg DAILY SC 08/11/24 10:00 08/14/24 09:31 40 MG Nitroglycerin 0.4 mg Q5MINP PRN SL 08/10/24 12:15 Morphine Sulfate 2 mg Q30M PRN IV 08/10/24 12:15 Diagnostic Test (Pha) 1 strip Q6HR 08/11/24 12:00 08/14/24 06:05 1 STRIP Insulin Human Regular Q6HR SC 08/11/24 12:00 Dextrose 50 ml UD PRN IV 08/11/24 08:45 Potassium Chloride 100 ml @ 50 mls/hr Q2H IV 08/11/24 13:15 08/11/24 19:14 UNV Cefepime HCl 50 ml @ 12.5 mls/hr Q12HR IV 08/11/24 14:00 08/14/24 09:27 12.5 MLS/HR Furosemide 40 mg DAILY IV 08/12/24 11:00 08/14/24 09:27 40 MG Labetalol HCl 20 mg Q2HPRN PRN IV 08/12/24 11:00 08/13/24 17:36 20 MG Metoprolol Tartrate 50 mg BID PO 08/12/24 16:15 08/14/24 09:30 50 MG Lisinopril 40 mg DAILY PO 08/13/24 10:00 08/14/24 09:28 40 MG Patient Own Medication 1 tab DAILY PO 08/13/24 10:00 UNV Levothyroxine Sodium 25 mcg QAM PO 08/14/24 07:00 08/14/24 06:19 25 MCG Levothyroxine Sodium 50 mcg QAM PO 08/14/24 07:00 08/14/24 06:18 50 MCG Haloperidol 2.5 mg Q8HPRN PRN PO 08/14/24 14:00 08/14/24 13:57 2.5 MG Laboratory Results Laboratory Tests 08/13/24 06:34 Urinalysis Test 2/10/25 03:46 Urine Color Light-yellow (Yellow) Urine Clarity Clear (Clear) Urine pH 7.0 (5.0-9.0) Urine Specific [place] 1.021 (1.001-1.035) Urine Protein 1+ (Negative) H Urine Ketones Negative (Negative) Urine Blood 1+ /uL (Negative) H Urine Nitrite Negative (Negative) Urine Bilirubin Negative (Negative) Urine Urobilinogen Normal mg/dL (Negative) Urine Leukocyte Esterase Negative /uL (Negative) Urine RBC 15 /hpf (0 - 4) Urine Microscopic WBC 3 /HPF (0-5) Urine Squamous Epithelial Cells None seen /hpf (<5) Urine Bacteria None seen /hpf (None Seen) Urine Glucose Normal mg/dL (Normal) Microbiology Microbiology Date/Time Source Procedure Growth Status 08/11/24 16:30 Nose MRSA Screen - Final Complete 08/10/24 17:57 Blood Blood Culture - Preliminary NO GROWTH AFTER 72 HOURS OF INCUBATION. Resulted 08/10/24 03:46 Voided Urine Urine Culture - Final Complete Labs and/or images reviewed: Labs reviewed by me, Image(s) reviewed by me Assessment/Plan Assessment/Plan Impression: -hypertensive crisis -metabolic encephalopathy -recent history of right knee septic arthritis , status post washing and removal of implant -hypokalemia -sepsis -atrial fibrillation -organic heart disease -history of CAD with PTCA Plan: Events: Patient very agitated and combative today. Attempted to deescalate situation of home myself. With the patient able to take oral Haldol with med administration. Patient continues to be very agitated with staff. Continue with Haldol and Xanax as needed. -restart Eliquis -continue cefepime -blood and urine cultures negative -right knee ultrasound with loculated effusion. No plans for joint aspiration. -social service consultation for reestablishing IV antibiotic therapy as well as transferred back to [place] post-acute facility. Total time spent with patient discussing and formulating plan of care: 35 minutes. This medical document was created using an electronic medical record system with [employer] system. Although this document has been carefully reviewed, there may still be some phonetic and typographical errors. These areas are purely typographical due to imperfections of the software programs, and do not reflect any compromise in the patient's medical care. Plan discussed with: Patient, Other (RN) My Orders Orders - FRANKIE MUSTAFA NP Procedure Category Date Status Time Haloperidol Tablet PHA 08/14/24 In Process (Haldol Tablet) 14:00 (Nf) Amitriptyline PHA 08/15/24 Verified Hcl (Amitriptyline Hy 10:00 Date of Service: Aug 14, 2024 Billing Provider: FRANKIE MUSTAFA NP Common Visit Codes: [id number] INP/OBS CARE(HIGH) FRANKIE MUSTAFA NP Aug 14, 2024 15:09
[2024-08-14] MEDS: AMITRIPTYLINE HCL 25 MG TAB PO SCH (21:37)
[2024-08-14] MEDS: APIXABAN 2.5 MG TAB PO SCH (21:38)
[2024-08-14] MEDS: ACETAMINOPHEN 325 MG TAB PO PRN (21:41)
[2024-08-15] VITALS (8 sets, daily range): BP systolic 133–187; BP diastolic 60–89; PULSE 52–69; RESP 17–18; TEMP 97.5–98.3; O2SAT 96–100
[2024-08-15] MEDS: hydrALAZINE HCL 20 MG/ML VL IV PRN (00:48)
[2024-08-15] MEDS: HYDROcodone-ACET 5/325MG TAB PO PRN (02:11)
[2024-08-15] MEDS: NIFEdipine ER 30 MG TAB PO ONE (11:00)
[2024-08-15] MEDS ORDERED: LABETALOL HCL 20 MG/4 ML VL IV PRN (11:15)
--- NOTE | 2024-08-15 17:21 | DVHPN2 ---
Subjective Patient denies any symptoms. Reviewed: Care Plan, H&P, Labs, Medications, Previous Orders Changes from previous H/P or p: No Changes General: Per HPI Eyes: No Pain, No Vision change, No Conjunctivae inflammation, No Eyelid inflammation, No Other, No Redness ENT: No Ear pain, No Ear discharge, No Nose pain, No Nose discharge, No Nose congestion, No Mouth pain, No Mouth swelling, No Throat pain, No Throat swelling, No Other Cardiovascular: No Chest Pain, No Palpitations, No Orthopnea, No Paroxysmal Noc. Dyspnea, No Edema, No Lt Headedness, No Other Respiratory: No Cough, No Dry, No Shortness of breath, No SOB with excertion, No Wheezing, No Hemoptysis, No Pleuritic Pain, No Sputum, No Other Gastrointestinal: No Nausea, No Vomiting, No Abdominal Pain, No Diarrhea, No Constipation, No Melena, No Hematochezia, No Other Genitourinary: No Dysuria, No Frequency, No Incontinence, No Hematuria, No Retention, No Other Musculoskeletal: No other, No neck pain, No shoulder pain, No arm pain, No back pain, No hand pain, No leg pain, No foot pain Skin: No Rash, No Lesions, No Jaundice, No Bruising, No Other Objective Vitals Vital Signs Date Time Temp Pulse Resp B/P (MAP) Pulse Ox O2 Delivery O2 Flow Rate FiO2 08/15/24 13:00 97.9 63 17 161/89 (113) 98 97.9 08/15/24 08:00 Room Air* 0 21 Intake/Output Intake and Output 08/15/24 07:00 Intake Total 600 ml Output Total 3100 ml Balance -2500 ml Intake Oral 500 ml IV Total 100 ml Output Urine Total 3100 ml # Bowel Movements 5 General Appearance: Alert, Oriented X3, Cooperative, mild distress HEENT: Atraumatic, PERRLA Lungs: Clear to auscultation, Normal air movement Cardiovascular: Normal S1, Normal S2 Abdomen: Normal bowel sounds Musculoskeletal: Normal sensory function, Normal motor function Neuro: Normal speech Skin: Dry, Intact Psych/Mental Status: Mental status NL, Mood NL Medications Current Medications Medications Dose Ordered Sig/Irene Route Start Time Stop Time Status Last Admin Dose Admin Alprazolam 0.5 mg BIDPRN PRN PO 08/10/24 11:15 08/15/24 06:48 0.5 MG Docusate Sodium 100 mg BID PO 08/10/24 22:00 08/15/24 10:29 100 MG Atorvastatin Calcium 10 mg HS PO 08/10/24 22:00 08/14/24 21:38 10 MG Ondansetron HCl 4 mg Q4HP PRN IV 08/10/24 12:15 Enoxaparin Sodium 40 mg DAILY SC 08/11/24 10:00 Hold 08/15/24 10:35 40 MG Nitroglycerin 0.4 mg Q5MINP PRN SL 08/10/24 12:15 Morphine Sulfate 2 mg Q30M PRN IV 08/10/24 12:15 Diagnostic Test (Pha) 1 strip Q6HR 08/11/24 12:00 08/15/24 12:00 1 STRIP Insulin Human Regular Q6HR SC 08/11/24 12:00 Dextrose 50 ml UD PRN IV 08/11/24 08:45 Potassium Chloride 100 ml @ 50 mls/hr Q2H IV 08/11/24 13:15 08/11/24 19:14 UNV Cefepime HCl 50 ml @ 12.5 mls/hr Q12HR IV 08/11/24 14:00 08/15/24 10:29 12.5 MLS/HR Furosemide 40 mg DAILY IV 08/12/24 11:00 08/15/24 10:36 40 MG Metoprolol Tartrate 50 mg BID PO 08/12/24 16:15 08/15/24 10:36 50 MG Lisinopril 40 mg DAILY PO 08/13/24 10:00 08/15/24 10:36 40 MG Patient Own Medication 1 tab DAILY PO 08/13/24 10:00 UNV Levothyroxine Sodium 25 mcg QAM PO 08/14/24 07:00 08/15/24 06:48 25 MCG Levothyroxine Sodium 50 mcg QAM PO 08/14/24 07:00 08/15/24 06:48 50 MCG Haloperidol 2.5 mg Q8HPRN PRN PO 08/14/24 14:00 08/14/24 21:50 2.5 MG Amitriptyline HCl 100 mg HS PO 08/14/24 22:00 08/14/24 21:37 100 MG Apixaban 2.5 mg BID PO 08/14/24 22:00 08/15/24 10:29 2.5 MG Acetaminophen 650 mg Q6HP PRN PO 08/14/24 21:15 08/15/24 06:48 650 MG Acetaminophen/ Hydrocodone Bitart 1 tab Q6HPRN PRN PO 08/15/24 02:00 08/15/24 16:12 1 TAB Hydralazine HCl 10 mg Q6HP PRN IV 08/15/24 11:15 Labetalol HCl 20 mg Q2HPRN PRN IV 08/15/24 11:15 Nifedipine 30 mg HS PO 08/15/24 22:00 Laboratory Results Laboratory Tests 08/13/24 06:34 Urinalysis Test 08/10/24 03:46 Urine Color Light-yellow (Yellow) Urine Clarity Clear (Clear) Urine pH 7.0 (5.0-9.0) Urine Specific [place] 1.021 (1.001-1.035) Urine Protein 1+ (Negative) H Urine Ketones Negative (Negative) Urine Blood 1+ /uL (Negative) H Urine Nitrite Negative (Negative) Urine Bilirubin Negative (Negative) Urine Urobilinogen Normal mg/dL (Negative) Urine Leukocyte Esterase Negative /uL (Negative) Urine RBC 15 /hpf (0 - 4) Urine Microscopic WBC 3 /HPF (0-5) Urine Squamous Epithelial Cells None seen /hpf (<5) Urine Bacteria None seen /hpf (None Seen) Urine Glucose Normal mg/dL (Normal) Microbiology Microbiology Date/Time Source Procedure Growth Status 08/11/24 16:30 Nose MRSA Screen - Final Complete 08/10/24 17:57 Blood Blood Culture - Preliminary NO GROWTH AFTER 72 HOURS OF INCUBATION. Resulted 08/10/24 03:46 Voided Urine Urine Culture - Final Complete Labs and/or images reviewed: Labs reviewed by me, Image(s) reviewed by me Assessment/Plan Assessment/Plan Impression: -hypertensive crisis -metabolic encephalopathy -recent history of right knee septic arthritis , status post washing and removal of implant -hypokalemia -sepsis -atrial fibrillation -organic heart disease -history of CAD with PTCA Plan: Events: Patient is not agitated today. The pressure appears to be high every night with last night also being given hydralazine IV. We will start Procardia 30 q.h.s.. Continue other pressure medication. Patient is on Haldol and Ativan for agitation. PT eval pending. Who converted Lasix to p.o. given patient is euvolemic. Continue IV antibiotic cefepime. Continuing placement for post- acute facility for IV antibiotics. -restart Eliquis The cervical 40, Lopressor 50 b.i.d., Procardia 30 q.h.s., hydralazine IV p.r.n., labetalol IV p.r.n., -continue cefepime -blood and urine cultures negative -right knee ultrasound with loculated effusion. No plans for joint aspiration. -social service consultation for reestablishing IV antibiotic therapy as well as transferred back to [place] post-acute facility. Total time spent with patient discussing and formulating plan of care: 35 minutes. Plan discussed with: Other My Orders Orders - JOSLYN ESCOBEDO MD Procedure Category Date Status Time Hydralazine Injection PHA 08/15/24 In Process (Apresoline Inject 11:15 Labetalol Hcl PHA 08/15/24 In Process (Labetalol Hcl) 11:15 Nifedipine Er PHA 08/15/24 In Process (Procardia Xl 22:00 Date of Service: Aug 15, 2024 Billing Provider: JOSLYN ESCOBEDO MD Common Visit Codes: [id number] INP/OBS CARE(HIGH) JOSLYN ESCOBEDO MD Aug 15, 2024 17:21
[2024-08-15] MEDS: NIFEdipine ER 30 MG TAB PO SCH (21:55)
[2024-08-16] VITALS (7 sets, daily range): BP systolic 95–175; BP diastolic 39–84; PULSE 57–77; RESP 16–18; TEMP 97.1–98.6; O2SAT 95–99
[2024-08-16] MEDS: FUROSEMIDE 40 MG TAB PO SCH (09:43)
[2024-08-16] MEDS ORDERED: NIFEdipine ER 30 MG TAB PO SCH (10:00)
--- NOTE | 2024-08-16 17:08 | DVHPN2 ---
Subjective Patient denies any symptoms. Reviewed: Care Plan, H&P, Labs, Medications, Previous Orders Changes from previous H/P or p: No Changes General: Per HPI Eyes: No Pain, No Vision change, No Conjunctivae inflammation, No Eyelid inflammation, No Other, No Redness ENT: No Ear pain, No Ear discharge, No Nose pain, No Nose discharge, No Nose congestion, No Mouth pain, No Mouth swelling, No Throat pain, No Throat swelling, No Other Cardiovascular: No Chest Pain, No Palpitations, No Orthopnea, No Paroxysmal Noc. Dyspnea, No Edema, No Lt Headedness, No Other Respiratory: No Cough, No Dry, No Shortness of breath, No SOB with excertion, No Wheezing, No Hemoptysis, No Pleuritic Pain, No Sputum, No Other Gastrointestinal: No Nausea, No Vomiting, No Abdominal Pain, No Diarrhea, No Constipation, No Melena, No Hematochezia, No Other Genitourinary: No Dysuria, No Frequency, No Incontinence, No Hematuria, No Retention, No Other Musculoskeletal: No other, No neck pain, No shoulder pain, No arm pain, No back pain, No hand pain, No leg pain, No foot pain Skin: No Rash, No Lesions, No Jaundice, No Bruising, No Other Objective Vitals Vital Signs Date Time Temp Pulse Resp B/P (MAP) Pulse Ox O2 Delivery O2 Flow Rate FiO2 08/16/24 13:00 98.1 77 18 136/79 (98) 97 98.1 08/16/24 08:10 Room Air* 0 21 Intake/Output Intake and Output 08/16/24 07:00 Intake Total 976 ml Output Total 1951 ml Balance -975 ml Intake Oral 926 ml IV Total 50 ml Output Urine Total 1950 ml Stool Total 1 ml # Bowel Movements 3 General Appearance: Alert, Oriented X3, Cooperative, mild distress HEENT: Atraumatic, PERRLA Lungs: Clear to auscultation, Normal air movement Cardiovascular: Normal S1, Normal S2 Abdomen: Normal bowel sounds Musculoskeletal: Normal sensory function, Normal motor function Neuro: Normal speech Skin: Dry, Intact Psych/Mental Status: Mental status NL, Mood NL Medications Current Medications Medications Dose Ordered Sig/Irene Route Start Time Stop Time Status Last Admin Dose Admin Alprazolam 0.5 mg BIDPRN PRN PO 08/10/24 11:15 08/15/24 17:21 0.5 MG Docusate Sodium 100 mg BID PO 08/10/24 22:00 08/16/24 09:42 100 MG Atorvastatin Calcium 10 mg HS PO 08/10/24 22:00 08/15/24 21:52 10 MG Ondansetron HCl 4 mg Q4HP PRN IV 08/10/24 12:15 Enoxaparin Sodium 40 mg DAILY SC 08/11/24 10:00 Hold 08/15/24 10:35 40 MG Nitroglycerin 0.4 mg Q5MINP PRN SL 08/10/24 12:15 Morphine Sulfate 2 mg Q30M PRN IV 08/10/24 12:15 Diagnostic Test (Pha) 1 strip Q6HR 08/11/24 12:00 08/16/24 12:00 1 STRIP Insulin Human Regular Q6HR SC 08/11/24 12:00 Dextrose 50 ml UD PRN IV 08/11/24 08:45 Potassium Chloride 100 ml @ 50 mls/hr Q2H IV 08/11/24 13:15 08/11/24 19:14 UNV Cefepime HCl 50 ml @ 12.5 mls/hr Q12HR IV 08/11/24 14:00 08/16/24 09:44 12.5 MLS/HR Metoprolol Tartrate 50 mg BID PO 08/12/24 16:15 08/15/24 21:54 50 MG Lisinopril 40 mg DAILY PO 08/13/24 10:00 08/16/24 09:43 40 MG Patient Own Medication 1 tab DAILY PO 08/13/24 10:00 UNV Levothyroxine Sodium 25 mcg QAM PO 08/14/24 07:00 08/16/24 05:07 25 MCG Levothyroxine Sodium 50 mcg QAM PO 08/14/24 07:00 08/16/24 05:07 50 MCG Haloperidol 2.5 mg Q8HPRN PRN PO 08/14/24 14:00 08/14/24 21:50 2.5 MG Amitriptyline HCl 100 mg HS PO 08/14/24 22:00 08/15/24 21:53 100 MG Apixaban 2.5 mg BID PO 08/14/24 22:00 08/16/24 09:43 2.5 MG Acetaminophen 650 mg Q6HP PRN PO 08/14/24 21:15 08/15/24 06:48 650 MG Acetaminophen/ Hydrocodone Bitart 1 tab Q6HPRN PRN PO 08/15/24 02:00 08/16/24 16:12 1 TAB Hydralazine HCl 10 mg Q6HP PRN IV 08/15/24 11:15 Labetalol HCl 20 mg Q2HPRN PRN IV 08/15/24 11:15 Nifedipine 30 mg HS PO 08/15/24 22:00 08/15/24 21:55 30 MG Furosemide 40 mg DAILY PO 08/16/24 10:00 08/16/24 09:43 40 MG Laboratory Results Laboratory Tests 08/13/24 06:34 Urinalysis Test 08/10/24 03:46 Urine Color Light-yellow (Yellow) Urine Clarity Clear (Clear) Urine pH 7.0 (5.0-9.0) Urine Specific [place] 1.021 (1.001-1.035) Urine Protein 1+ (Negative) H Urine Ketones Negative (Negative) Urine Blood 1+ /uL (Negative) H Urine Nitrite Negative (Negative) Urine Bilirubin Negative (Negative) Urine Urobilinogen Normal mg/dL (Negative) Urine Leukocyte Esterase Negative /uL (Negative) Urine RBC 15 /hpf (0 - 4) Urine Microscopic WBC 3 /HPF (0-5) Urine Squamous Epithelial Cells None seen /hpf (<5) Urine Bacteria None seen /hpf (None Seen) Urine Glucose Normal mg/dL (Normal) Microbiology Microbiology Date/Time Source Procedure Growth Status 08/11/24 16:30 Nose MRSA Screen - Final Complete 08/10/24 17:57 Blood Blood Culture - Final NO GROWTH AFTER 5 DAYS OF INCUBATION. Complete 08/10/24 03:46 Voided Urine Urine Culture - Final Complete Labs and/or images reviewed: Labs reviewed by me, Image(s) reviewed by me Assessment/Plan Assessment/Plan Impression: -hypertensive crisis -metabolic encephalopathy -recent history of right knee septic arthritis , status post washing and removal of implant -hypokalemia -sepsis -atrial fibrillation -organic heart disease -history of CAD with PTCA Plan: Events: Patient is not agitated today. Procardia 30 q.h.s is controlling blood pressure better.. Continue other blood pressure medication. Patient is on Haldol and Ativan for agitation thus far not being needed further. Lasix to p.o. given patient is euvolemic. Continue IV antibiotic cefepime. Continuing placement for post-acute facility for IV antibiotics. We will defer PT eval order to primary team for tomorrow. -restart Eliquis The cervical 40, Lopressor 50 b.i.d., Procardia 30 q.h.s., hydralazine IV p.r.n., labetalol IV p.r.n., -continue cefepime -blood and urine cultures negative -right knee ultrasound with loculated effusion. No plans for joint aspiration. -social service consultation for reestablishing IV antibiotic therapy as well as transferred back to [place] post-acute facility. Total time spent with patient discussing and formulating plan of care: 35 minutes. Plan discussed with: Patient My Orders Orders - JOSLYN ESCOBEDO MD Procedure Category Date Status Time Apply Z-Guard ROSSI 08/15/24 In Process 18:38 Furosemide Tablet PHA 08/16/24 In Process (Lasix Tablet) 10:00 Date of Service: Aug 16, 2024 Billing Provider: JOSLYN ESCOBEDO MD Common Visit Codes: [id number] INP/OBS CARE(HIGH) JOSLYN ESCOBEDO MD Aug 16, 2024 17:08
[2024-08-16] MEDS: ONDANSETRON HCL 4 MG/2 ML VIAL IV PRN (22:37)
[2024-08-17] VITALS (7 sets, daily range): BP systolic 103–176; BP diastolic 55–84; PULSE 62–68; RESP 18–19; TEMP 97.7–98.4; O2SAT 95–100
[2024-08-17] MEDS: hydrALAZINE HCL 20 MG/ML VL IV PRN (03:22)
[2024-08-17 06:47] LABS: Eosinophils # (auto) 0.3 10 ^3/uL (0-0.8); Hematocrit 30.4 % (36.0-46.0); Hemoglobin 10.1 g/dL (12.2-16.2); Platelet Count (auto) 597 10^3/uL (140-450); White Blood Cell 9.8 10^3/uL (4.4-10.8)
[2024-08-17 06:48] LABS: Chloride 100 mmol/L (98-107)
[2024-08-17 06:49] LABS: Anion Gap 8 (5-15); Carbon Dioxide 28 mmol/L (20-31)
[2024-08-17 06:50] LABS: Calcium 10.3 mg/dL (8.7-10.4)
[2024-08-17 06:54] LABS: Basophils # (auto) 0.1 10 ^3/uL (0-0.2); Basophils % (auto) 0.5 % (0.0-2.0); Eosinophils % (auto) 2.6 % (0.0-7.0); Glucose 100 mg/dL (74-106); Lymphocytes # (auto) 1.3 10 ^3/uL (0.4-5.4); Lymphocytes % (auto) 13.2 % (10.0-50.0); Mean Corpuscular Hemoglobin 27.6 pg (28.0-32.0); Mean Corpuscular Hgb Conc. 33.1 g/dL (32.0-36.0); Mean Corpuscular Volume 83.5 fL (80.0-100.0); Monocytes # (auto) 1.2 10 ^3/uL (0-1.3); Neutrophils % (auto) 71.7 % (37.0-80.0); Nucleated Red Blood Cells % 0.1 %; Red Blood Cells 3.64 10^6/uL (4.0-5.20)
[2024-08-17 06:55] LABS: BUN/Creatinine Ratio 26.3 (10.0-20.0); Blood Urea Nitrogen 20 mg/dL (9-23)
[2024-08-17 06:56] LABS: Potassium 2.7 mmol/L (3.5-5.1); Sodium 136 mmol/L (136-145)
[2024-08-17 07:28] LABS: Red Cell Distribution Width 21.2 % (11.8-14.3)
--- NOTE | 2024-08-17 13:05 | DVHDS2 ---
Discharge Summary Date of Admission Aug 10, 2024 at 12:01 Date of Discharge: Aug 17, 2024 Admitting Diagnosis Metabolic encephalopathy secondary hypertensive crisis Labs/Diagnostic Data: Laboratory Results Test 08/17/24 05:37 08/12/24 14:18 08/12/24 12:42 08/12/24 11:16 White Blood Count 9.8 10^3/uL (4.4-10.8) Red Blood Count 3.64 10^6/uL (4.0-5.20) Hemoglobin 10.1 g/dL (12.2-16.2) Hematocrit 30.4 % (36.0-46.0) Mean Corpuscular Volume 83.5 fL (80.0-100.0) Mean Corpuscular Hemoglobin 27.6 pg (28.0-32.0) Mean Corpuscular Hemoglobin Concent 33.1 g/dL (32.0-36.0) Red Cell Distribution Width 21.2 % (11.8-14.3) Platelet Count 597 10^3/uL (140-450) Mean Platelet Volume 6.2 fL (6.9-10.8) Neutrophils (%) (Auto) 71.7 % (37.0-80.0) Lymphocytes (%) (Auto) 13.2 % (10.0-50.0) Monocytes (%) (Auto) 12.0 % (0.0-12.0) Eosinophils (%) (Auto) 2.6 % (0.0-7.0) Basophils (%) (Auto) 0.5 % (0.0-2.0) Neutrophils # (Auto) 7.0 10 ^3/uL (1.6-8.6) Lymphocytes # (Auto) 1.3 10 ^3/uL (0.4-5.4) Monocytes # (Auto) 1.2 10 ^3/uL (0-1.3) Eosinophils # (Auto) 0.3 10 ^3/uL (0-0.8) Basophils # (Auto) 0.1 10 ^3/uL (0-0.2) Nucleated Red Blood Cells 0.1 % Sodium Level 136 mmol/L (136-145) Potassium Level 2.7 mmol/L (3.5-5.1) Chloride Level 100 mmol/L (98-107) Carbon Dioxide Level 28 mmol/L (20-31) Anion Gap 8 (5-15) Blood Urea Nitrogen 20 mg/dL (9-23) Creatinine 0.76 mg/dL (0.550-1.02) Glomerular Filtration Rate Calc 77 mL/min (>90) BUN/Creatinine Ratio 26.3 (10.0-20.0) Serum Glucose 100 mg/dL (74-106) Calcium Level 10.3 mg/dL (8.7-10.4) Blood Gas Specimen Type Arterial Blood Gas Sample Site Right radial Blood Gas Patient Temperature 37.0 Arterial Blood Date Drawn [id number] Arterial Blood pH 7.500 (7.350-7.450) Arterial Blood Partial Pressure CO2 27.9 mmHg (32.0-45.0) Arterial Blood Partial Pressure O2 74.5 mmHg (83.0-108.0) Arterial Blood HCO3 21.3 mmol/L (21.0-28.0) Arterial Blood Oxygen Saturation 95.5 % (94.0-98.0) Arterial Blood Base Excess -1.2 mmol/L (-2.0-3.0) Arterial Blood Oxyhemoglobin 93.7 % (94.0-98.0) Arterial Blood Carboxyhemoglobin 1.3 % (0.5-1.5) Arterial Blood Methemoglobin 0.6 % (0.0-1.5) Bob Test Yes Blood Gas Total Hemoglobin 9.80 g/dL (12.0-16.0) Blood Gas Modality Room air FiO2 % 21.0 POC Glucose 78 mg/dl (70-106) Prothrombin Time 11.4 sec (9.3-11.8) Prothrombin Time INR 1.08 (0.9-1.15) Test 08/11/24 06:21 08/10/24 03:46 08/10/24 01:27 Erythrocyte Sedimentation Rate 66 mm/hr (0-20) Ionized Calcium 5.7 mg/dL (4.5-5.6) Magnesium Level 2.0 mg/dL (1.6-2.6) Total Bilirubin 0.3 mg/dL (0.2-1.0) Aspartate Amino Transferase (AST) 23 U/L (13-40) Alanine Aminotransferase (ALT) 13 U/L (7-40) Alkaline Phosphatase 103 U/L (46-116) C-Reactive Protein High Sensitivity 3.42 mg/dL (<1.0) Total Protein 7.9 g/dL (5.7-8.2) Albumin 3.9 g/dL (3.2-4.8) Urine Color Light-yellow (Yellow) Urine Clarity Clear (Clear) Urine pH 7.0 (5.0-9.0) Urine Specific [place] 1.021 (1.001-1.035) Urine Protein 1+ (Negative) Urine Ketones Negative (Negative) Urine Blood 1+ /uL (Negative) Urine Nitrite Negative (Negative) Urine Bilirubin Negative (Negative) Urine Urobilinogen Normal mg/dL (Negative) Urine Leukocyte Esterase Negative /uL (Negative) Urine RBC 15 /hpf (0 - 4) Urine Microscopic WBC 3 /HPF (0-5) Urine Squamous Epithelial Cells None seen /hpf (<5) Urine Bacteria None seen /hpf (None Seen) Urine Glucose Normal mg/dL (Normal) Urine Opiates Screen Pos (NEGATIVE) Urine Fentanyl Screen Neg (NEGATIVE) Urine Barbiturates Screen Neg (NEGATIVE) Urine Phencyclidine Screen Neg (NEGATIVE) Urine Amphetamines Screen Neg (NEGATIVE) Urine Benzodiazepines Screen Pos (NEGATIVE) Urine Cocaine Screen Neg (NEGATIVE) Urine Cannabinoids Screen Neg (NEGATIVE) Lactic Acid Level 0.9 mmol/L (0.4-2.0) Troponin I High Sensitivity 34 ng/L (</=34) Lipase 29 U/L (12-53) Parathyroid Hormone (Intact) 12.1 pg/mL (18.4-80.1) Plasma/Serum Blood Alcohol < 3.0 mg/dL (<10) Other Laboratory Tests 08/17/24 05:37 Brief Hx & Hospital Course: History of Present Illness Verónica Louise is an 83-year-old female with past medical history of hypertension, COPD, CHF, atrial fibrillation, diabetes, hypothyroidism, chronic renal insufficiency, and cardiomyopathy, who was brought in by EMS for ALOC. Patient resides in an assisted living facility. The patient is A&O x 4 at baseline. Staff noticed she was altered and called EMS. On assessment, patient has repetitive speech, and is unable to follow commands or answer questions. Patient was recently admitted for a septic knee from knee replacement surgery. Patient is wearing a brace and the knee is swollen. This hospitalization: Patient was placed on nicardipine drip, which was weaned off after patient had improvement with her mental status as well as following a swallow evaluation. Patient did have periods of confusion, agitation, with the patient restarting her home antianxiety medications as well as antidepressants. The right knee was found to be swollen in the brace, in addition to ESR and CRP being elevated. Patient was continued on antibiotic therapy with cefepime. Ultrasound of the knee did reveal loculated effusion. Consultation was obtained with Orthopedic surgery, who recommends to continue IV antibiotic therapy at this time. Patient was mentation has improved. She was tolerating oral intake. Vital signs have been stable. After having potassium replete, patient will be discharged back to [facility] with continued IV antibiotic therapy with cefepime 1 g q.12 hours as recommended by Orthopedic surgery. Patient will follow up with Orthopedic surgery within 2-3 weeks. All questions answered. Physical examination General: Alert and Oriented x3. No acute distress. Well-nourished. Eyes: EOMI. Anicteric. HENT: Moist mucous membranes. Lungs: Clear to auscultation bilaterally. No accessory muscle use. Cardiovascular: Regular rate and rhythm. No murmur. No JVD. Abdomen: Soft, non-tender and non-distended. No palpable masses. Extremities: No edema. Non-tender. Right knee swollen with brace Skin: No rashes or lesions. Warm. Neurologic: No focal neurological deficits. CN II-XII grossly intact, but not individually tested. Psychiatric: Cooperative. Appropriate mood and affect. Total time spent with patient discussing and formulating plan of care: 35 minutes. This medical document was created using an electronic medical record system with [employer] dictation system. Although this document has been carefully reviewed, there may still be some phonetic and typographical errors. These areas are purely typographical due to imperfections of the software programs, and do not reflect any compromise in the patient's medical care. Consults/Reason for consult Orthopedic surgery: Right knee effusion Cardiology: Hypertensive crisis Condition at Discharge: Guarded Final Diagnosis/Problems List Metabolic encephalopathy secondary to hypertensive crisis and osteomyelitis Secondary diagnosis -hypertensive crisis -metabolic encephalopathy -recent history of right knee septic arthritis , status post washing and removal of implant -hypokalemia -sepsis -atrial fibrillation -organic heart disease -history of CAD with PTCA Discharge Disposition: Jail Facility Discharge Instruct/Medications Diet: Cardiac 2g Na,low cholest Activity: No Restrictions, As Tolerated Follow Up/Referral: Follow up with in 2-3 weeks Medications: Refer to medication reconciliation form 36 Discharge Statement: "Patient was advised to return to the ER or call 911 if any headaches, dizziness, shortness of breath, chest pain, abdominal pain, bleeding, fevers, or worsening of medical condition. Patient was counseled about treatment plan, medications, possible side effects, patientverbalized understanding. All questions were answered to the best of my ability. This discharge took greater then 30 minutes in planning, reviewing documentation, counseling the patient, and discussing with other team members." ASSESSMENT ASSESSMENT Assessment Metabolic encephalopathy secondary to hypertensive crisis and osteomyelitis Date of Service: Aug 17, 2024 Billing Provider: FRANKIE MUSTAFA NP Common Visit Codes: [id number] DISCH DAY >30min FRANKIE MUSTAFA NP Aug 17, 2024 13:05
[2024-08-17] MEDS: POTASSIUM EFFERVESENT TAB 25 MEQ PO ONE (14:11)
--- NOTE | 2024-08-17 15:50 | DVHPN2 ---
Progress Note - Dictate Date Seen: Aug 15, 2024 Medical Necessity Reason Pt with a Central, PICC or Fol: Yes The following are medically ne: Glass Catheter Subjective PT WITH REMOVAL OF KNEE PROSTHESIS SECONDARY TO SEPSIS RIGHT KNEE REPLACEMENT NOW WITH EFFUSION S/P ARTHROCENTESIS TOTAL RIGHT KNEE ARTHROPLASTY PT WITH SEVERE OSTEOARTHRITIS ORGANIC HEART DISEASE HTN CAD WITH HX OF PTCA STENT HX OF CHF HRpEF / DIASTOLIC AFIB HYPERCOAGULABLE STATE Respiratory: denies: cough, hemoptysis, orthopnea, SOB at rest, shortness of breath, SOB with exertion, stridor, wheezing, others Gastrointestinal: Reports: abdominal pain, diarrhea, melena, vomiting, denies; poor appetite, poor fluid intake; constipated, diarrhea, dysphagia, difficulty swallowing, hematemesis, melena, nausea, rectal bleeding, rectal pain, vomiting, others Genitourinary: denies: abnormal vagina bleeding, burning, dyspareunia, dysuria, flank pain, frequency, hematuria, incontinence, pain, , vagina discharge, urgency, others Neurological: denies: dizziness, fainting, headache, left sided numbness, left sided weakness, numbness, paresthesia, pre-existing deficit, right sided numbness, right sided weakness, seizure, speech problems, tingling, tremors, weakness, others Musculoskeletal: denies: back pain, gout, joint pain, joint swelling, muscle pain, muscle stiffness, neck pain, others Integumentary: Denies: bruises, change in color, change in hair/nails, dryness, laceration, lesions, lumps, rash, wounds, others Allergic/Immunocompromised: denies: Difficulty Healing, Frequent Infections, Hives, Itching, others Hematologic/Lymphatic: denies: anemia, blood clots, easy bleeding, easy bruising, swollen glands, others Endocrine: denies: excessive hunger, excessive sweating, excessive thirst, excessive urination, flushing, intolerance to cold, intolerance to heat, unexplained weight gain, unexplained weight loss, others vital signs Vital Sign Date Time Temp Pulse Resp B/P (MAP) Pulse Ox O2 Delivery O2 Flow Rate FiO2 08/17/24 14:42 97.8 62 18 124/66 (85) 99 97.8 08/17/24 08:15 Room Air* 0 21 Total Intake and Output 08/16/24 08/16/24 08/17/24 14:59 22:59 06:59 Intake Total 962 ml 290 ml Output Total 1201 ml 302 ml Balance -239 ml -12 ml medications Current Medications Medications Dose Ordered Sig/Irene Route Start Time Stop Time Status Last Admin Dose Admin Alprazolam 0.5 mg BIDPRN PRN PO 08/10/24 11:15 08/17/24 10:07 0.5 MG Docusate Sodium 100 mg BID PO 08/10/24 22:00 08/17/24 10:00 100 MG Atorvastatin Calcium 10 mg HS PO 08/10/24 22:00 08/16/24 22:38 10 MG Ondansetron HCl 4 mg Q4HP PRN IV 08/10/24 12:15 08/17/24 09:30 4 MG Nitroglycerin 0.4 mg Q5MINP PRN SL 08/10/24 12:15 Morphine Sulfate 2 mg Q30M PRN IV 08/10/24 12:15 Diagnostic Test (Pha) 1 strip Q6HR 08/11/24 12:00 08/17/24 14:08 1 STRIP Insulin Human Regular Q6HR SC 08/11/24 12:00 Dextrose 50 ml UD PRN IV 08/11/24 08:45 Potassium Chloride 100 ml @ 50 mls/hr Q2H IV 08/11/24 13:15 08/11/24 19:14 UNV Cefepime HCl 50 ml @ 12.5 mls/hr Q12HR IV 08/11/24 14:00 08/17/24 10:00 12.5 MLS/HR Metoprolol Tartrate 50 mg BID PO 08/12/24 16:15 08/17/24 10:00 50 MG Lisinopril 40 mg DAILY PO 08/13/24 10:00 08/17/24 10:01 40 MG Patient Own Medication 1 tab DAILY PO 08/13/24 10:00 UNV Levothyroxine Sodium 25 mcg QAM PO 08/14/24 07:00 08/17/24 06:09 25 MCG Levothyroxine Sodium 50 mcg QAM PO 08/14/24 07:00 08/17/24 06:09 50 MCG Haloperidol 2.5 mg Q8HPRN PRN PO 08/14/24 14:00 08/14/24 21:50 2.5 MG Amitriptyline HCl 100 mg HS PO 08/14/24 22:00 08/16/24 22:52 100 MG Apixaban 2.5 mg BID PO 08/14/24 22:00 08/17/24 10:00 2.5 MG Acetaminophen 650 mg Q6HP PRN PO 08/14/24 21:15 08/17/24 02:01 650 MG Acetaminophen/ Hydrocodone Bitart 1 tab Q6HPRN PRN PO 08/15/24 02:00 08/17/24 04:28 1 TAB Hydralazine HCl 10 mg Q6HP PRN IV 08/15/24 11:15 08/17/24 03:22 10 MG Labetalol HCl 20 mg Q2HPRN PRN IV 08/15/24 11:15 Nifedipine 30 mg HS PO 08/15/24 22:00 08/16/24 22:40 30 MG Furosemide 40 mg DAILY PO 08/16/24 10:00 08/17/24 10:00 40 MG objective HEENT: Head is atraumatic normocephalic, eyes PERRLA, ENT oropharynx moist and clear, neck supple, no tenderness, trachea midline, no masses no JVD. Chest: Denies chest pain, no diaphoresis, no mass adenopathy, no tenderness. Cardiac: Regular rate and rhythm, S1-S2 normal, no murmurs, no rubs or gallops. Pulmonary: No shortness of breath, lungs are clear to auscultation bilaterally, no wheezing, no rales or rhonchi. Abdomen: Soft, tender, nondistended, no masses, bowel sounds positive. Genitourinary: Denies dysuria, no urinary frequency, no hematuria. Skin: Skin warm and dry to touch no rash or lesion, no ulceration. Extremities: No clubbing, no edema, no tenderness, no varicosity. Neurologic: Grossly intact, no new focal motor deficit, no numbness or tingling. laboratory and microbiology Laboratory Tests 08/17/24 14:10 08/17/24 05:37 Test 08/17/24 05:37 Range/Units Serum Glucose 100 74-106 mg/dL Problem List SEPTIC JOINT S/P EXPLANTATION OF RIGHT KNEE PROSTHESIS WITH SPACERS NOW WITH CONFUSION METABOLIC ENCEPHALOPATHY SEVERE OSTEOARTHRITIS RIGHT KNEE EFFUSION LEUKOCYTOSIS ANEMIA PMH ORGANIC HEART DISEASE HTN CAD WITH HX OF PTCA STENT HX OF CHF HRpEF / DIASTOLIC AFIB HYPERCOAGULABLE STATE HYPOKALEMIA SEVERE [place] HYPERCALCEMIA Assessment/Plan ABX BLOOD CX ABG CXR IV FLUID LASIX TREAT HYPERCALCEMIA IMPROVING TO 10.7 CONSTIPATION FLEETS CALCIUM CORRECTED HYPERVENTILATION PT HYPERTENSION UNDER GOOD CONTROL HEMODYNAMICALLY STABLE Dietary Evaluation Review Comments: CCHO-60 Cardiac with 60 g prot restriction Expected Outcomes/Goals: gradual wt gain Plan discussed with: Patient ANISH DIAZ MD Aug 17, 2024 15:50
[2024-08-18] VITALS (7 sets, daily range): BP systolic 134–146; BP diastolic 61–77; PULSE 61–69; RESP 18; TEMP 97.6–98.9; O2SAT 95–98
[2024-08-18 09:08] LABS: Anion Gap 6 (5-15); Carbon Dioxide 29 mmol/L (20-31); Chloride 99 mmol/L (98-107); Potassium 3.7 mmol/L (3.5-5.1)
[2024-08-18 09:10] LABS: Calcium 10.3 mg/dL (8.7-10.4)
[2024-08-18 09:14] LABS: Glucose 102 mg/dL (74-106)
[2024-08-18 09:15] LABS: BUN/Creatinine Ratio 25.8 (10.0-20.0)
[2024-08-18 09:16] LABS: Blood Urea Nitrogen 25 mg/dL (9-23); Sodium 134 mmol/L (136-145)
--- NOTE | 2024-08-18 11:32 | DVHPN2 ---
Subjective Patient denies any symptoms. Reviewed: Care Plan, H&P, Labs, Medications, Previous Orders Changes from previous H/P or p: No Changes General: Per HPI Eyes: No Pain, No Vision change, No Conjunctivae inflammation, No Eyelid inflammation, No Other, No Redness ENT: No Ear pain, No Ear discharge, No Nose pain, No Nose discharge, No Nose congestion, No Mouth pain, No Mouth swelling, No Throat pain, No Throat swelling, No Other Cardiovascular: No Chest Pain, No Palpitations, No Orthopnea, No Paroxysmal Noc. Dyspnea, No Edema, No Lt Headedness, No Other Respiratory: No Cough, No Dry, No Shortness of breath, No SOB with excertion, No Wheezing, No Hemoptysis, No Pleuritic Pain, No Sputum, No Other Gastrointestinal: No Nausea, No Vomiting, No Abdominal Pain, No Diarrhea, No Constipation, No Melena, No Hematochezia, No Other Genitourinary: No Dysuria, No Frequency, No Incontinence, No Hematuria, No Retention, No Other Musculoskeletal: No other, No neck pain, No shoulder pain, No arm pain, No back pain, No hand pain, No leg pain, No foot pain Skin: No Rash, No Lesions, No Jaundice, No Bruising, No Other Objective Vitals Vital Signs Date Time Temp Pulse Resp B/P (MAP) Pulse Ox O2 Delivery O2 Flow Rate FiO2 08/18/24 10:57 140/66 08/18/24 10:56 72 08/18/24 09:15 98.5 18 98 98.5 08/18/24 07:45 Room Air* 0 21 Intake/Output Intake and Output 08/18/24 07:00 Intake Total 880.0 ml Output Total 1650 ml Balance -770.0 ml Intake Oral 780 ml IV Total 100.0 ml Output Urine Total 1650 ml # Bowel Movements 2 General Appearance: Alert, Oriented X3, Cooperative, mild distress HEENT: Atraumatic, PERRLA Lungs: Clear to auscultation, Normal air movement Cardiovascular: Normal S1, Normal S2 Abdomen: Normal bowel sounds Musculoskeletal: Normal sensory function, Normal motor function Neuro: Normal speech Skin: Dry, Intact Psych/Mental Status: Mental status NL, Mood NL Medications Current Medications Medications Dose Ordered Sig/Irene Route Start Time Stop Time Status Last Admin Dose Admin Alprazolam 0.5 mg BIDPRN PRN PO 2/10/25 11:15 08/17/24 20:08 0.5 MG Docusate Sodium 100 mg BID PO 08/10/24 22:00 08/18/24 10:56 100 MG Atorvastatin Calcium 10 mg HS PO 08/10/24 22:00 08/17/24 21:55 10 MG Ondansetron HCl 4 mg Q4HP PRN IV 08/10/24 12:15 08/17/24 09:30 4 MG Nitroglycerin 0.4 mg Q5MINP PRN SL 08/10/24 12:15 Morphine Sulfate 2 mg Q30M PRN IV 08/10/24 12:15 Diagnostic Test (Pha) 1 strip Q6HR 08/11/24 12:00 08/18/24 05:40 1 STRIP Insulin Human Regular Q6HR SC 08/11/24 12:00 Dextrose 50 ml UD PRN IV 08/11/24 08:45 Potassium Chloride 100 ml @ 50 mls/hr Q2H IV 08/11/24 13:15 08/11/24 19:14 UNV Cefepime HCl 50 ml @ 12.5 mls/hr Q12HR IV 08/11/24 14:00 08/18/24 10:56 12.5 MLS/HR Metoprolol Tartrate 50 mg BID PO 08/12/24 16:15 08/18/24 10:56 50 MG Lisinopril 40 mg DAILY PO 08/13/24 10:00 08/18/24 10:57 40 MG Patient Own Medication 1 tab DAILY PO 08/13/24 10:00 UNV Levothyroxine Sodium 25 mcg QAM PO 08/14/24 07:00 08/18/24 06:06 25 MCG Levothyroxine Sodium 50 mcg QAM PO 08/14/24 07:00 08/18/24 06:06 50 MCG Haloperidol 2.5 mg Q8HPRN PRN PO 08/14/24 14:00 08/14/24 21:50 2.5 MG Amitriptyline HCl 100 mg HS PO 08/14/24 22:00 08/17/24 21:56 100 MG Apixaban 2.5 mg BID PO 08/14/24 22:00 08/18/24 10:56 2.5 MG Acetaminophen 650 mg Q6HP PRN PO 08/14/24 21:15 08/17/24 02:01 650 MG Acetaminophen/ Hydrocodone Bitart 1 tab Q6HPRN PRN PO 08/15/24 02:00 08/18/24 05:39 1 TAB Hydralazine HCl 10 mg Q6HP PRN IV 08/15/24 11:15 08/17/24 03:22 10 MG Labetalol HCl 20 mg Q2HPRN PRN IV 08/15/24 11:15 Nifedipine 30 mg HS PO 08/15/24 22:00 08/17/24 21:55 30 MG Furosemide 40 mg DAILY PO 08/16/24 10:00 08/18/24 10:56 40 MG Laboratory Results Laboratory Tests 08/17/24 05:37 08/18/24 08:00 Chemistry Test 08/18/24 08:00 Calcium Level 10.3 mg/dL (8.7-10.4) Urinalysis Test 08/10/24 03:46 Urine Color Light-yellow (Yellow) Urine Clarity Clear (Clear) Urine pH 7.0 (5.0-9.0) Urine Specific [place] 1.021 (1.001-1.035) Urine Protein 1+ (Negative) H Urine Ketones Negative (Negative) Urine Blood 1+ /uL (Negative) H Urine Nitrite Negative (Negative) Urine Bilirubin Negative (Negative) Urine Urobilinogen Normal mg/dL (Negative) Urine Leukocyte Esterase Negative /uL (Negative) Urine RBC 15 /hpf (0 - 4) Urine Microscopic WBC 3 /HPF (0-5) Urine Squamous Epithelial Cells None seen /hpf (<5) Urine Bacteria None seen /hpf (None Seen) Urine Glucose Normal mg/dL (Normal) Microbiology Microbiology Date/Time Source Procedure Growth Status 08/11/24 16:30 Nose MRSA Screen - Final Complete 08/10/24 17:57 Blood Blood Culture - Final NO GROWTH AFTER 5 DAYS OF INCUBATION. Complete 08/10/24 03:46 Voided Urine Urine Culture - Final Complete Labs and/or images reviewed: Labs reviewed by me, Image(s) reviewed by me Assessment/Plan Assessment/Plan Impression: -hypertensive crisis -metabolic encephalopathy -recent history of right knee septic arthritis , status post washing and removal of implant -hypokalemia -sepsis -atrial fibrillation -organic heart disease -history of CAD with PTCA Plan: Events: Patient was discharged yesterday. Awaiting for sniff transfer. -continue Eliquis -continue antianxiety, antidepressants -continue cefepime -blood and urine cultures negative -right knee ultrasound with loculated effusion. No plans for joint aspiration. -social service consultation for reestablishing IV antibiotic therapy as well as transferred back to [facility]. Total time spent with patient discussing and formulating plan of care: 35 minutes. This medical document was created using an electronic medical record system with [employer] dictation system. Although this document has been carefully reviewed, there may still be some phonetic and typographical errors. These areas are purely typographical due to imperfections of the software programs, and do not reflect any compromise in the patient's medical care. Plan discussed with: Patient, Other (RN) My Orders Orders - FRANKIE MUSTAFA NP Procedure Category Date Status Time Discharge DISCHARGE 08/17/24 Transmitted 12:55 Date of Service: Aug 18, 2024 Billing Provider: FRANKIE MUSTAFA NP Common Visit Codes: [id number] INP/OBS CARE(HIGH) FRANKIE MUSTAFA NP Aug 18, 2024 11:32
[2024-08-19] VITALS (8 sets, daily range): BP systolic 102–151; BP diastolic 60–88; PULSE 60–86; RESP 16–22; TEMP 97.5–98.3; O2SAT 95–100
--- NOTE | 2024-08-19 09:46 | DVHPN2 ---
Progress Note - Dictate Date Seen: Aug 19, 2024 Medical Necessity Reason Pt with a Central, PICC or Fol: Yes The following are medically ne: Glass Catheter Subjective PT WITH REMOVAL OF KNEE PROSTHESIS SECONDARY TO SEPSIS RIGHT KNEE REPLACEMENT NOW WITH EFFUSION S/P ARTHROCENTESIS TOTAL RIGHT KNEE ARTHROPLASTY PT WITH SEVERE OSTEOARTHRITIS ORGANIC HEART DISEASE HTN CAD WITH HX OF PTCA STENT HX OF CHF HRpEF / DIASTOLIC AFIB HYPERCOAGULABLE STATE Respiratory: denies: cough, hemoptysis, orthopnea, SOB at rest, shortness of breath, SOB with exertion, stridor, wheezing, others Gastrointestinal: Reports: abdominal pain, diarrhea, melena, vomiting, denies; poor appetite, poor fluid intake; constipated, diarrhea, dysphagia, difficulty swallowing, hematemesis, melena, nausea, rectal bleeding, rectal pain, vomiting, others Genitourinary: denies: abnormal vagina bleeding, burning, dyspareunia, dysuria, flank pain, frequency, hematuria, incontinence, pain, , vagina discharge, urgency, others Neurological: denies: dizziness, fainting, headache, left sided numbness, left sided weakness, numbness, paresthesia, pre-existing deficit, right sided numbness, right sided weakness, seizure, speech problems, tingling, tremors, weakness, others Musculoskeletal: denies: back pain, gout, joint pain, joint swelling, muscle pain, muscle stiffness, neck pain, others Integumentary: Denies: bruises, change in color, change in hair/nails, dryness, laceration, lesions, lumps, rash, wounds, others Allergic/Immunocompromised: denies: Difficulty Healing, Frequent Infections, Hives, Itching, others Hematologic/Lymphatic: denies: anemia, blood clots, easy bleeding, easy bruising, swollen glands, others Endocrine: denies: excessive hunger, excessive sweating, excessive thirst, excessive urination, flushing, intolerance to cold, intolerance to heat, unexplained weight gain, unexplained weight loss, others vital signs Vital Sign Date Time Temp Pulse Resp B/P (MAP) Pulse Ox O2 Delivery O2 Flow Rate FiO2 08/19/24 05:00 97.9 62 18 151/72 (98) 100 97.9 08/18/24 20:00 Room Air* 0 21 Total Intake and Output 08/18/24 08/18/24 08/19/24 15:00 23:00 07:00 Intake Total 50 ml 500 ml 290 ml Output Total 1300 ml 1350 ml Balance 50 ml -800 ml -1060 ml medications Current Medications Medications Dose Ordered Sig/Irene Route Start Time Stop Time Status Last Admin Dose Admin Alprazolam 0.5 mg BIDPRN PRN PO 08/10/24 11:15 08/18/24 17:46 0.5 MG Docusate Sodium 100 mg BID PO 08/10/24 22:00 08/18/24 21:10 100 MG Atorvastatin Calcium 10 mg HS PO 08/10/24 22:00 08/18/24 21:10 10 MG Ondansetron HCl 4 mg Q4HP PRN IV 08/10/24 12:15 08/19/24 01:20 4 MG Nitroglycerin 0.4 mg Q5MINP PRN SL 08/10/24 12:15 Morphine Sulfate 2 mg Q30M PRN IV 08/10/24 12:15 Diagnostic Test (Pha) 1 strip Q6HR 08/11/24 12:00 08/19/24 05:44 1 STRIP Insulin Human Regular Q6HR SC 08/11/24 12:00 Dextrose 50 ml UD PRN IV 08/11/24 08:45 Potassium Chloride 100 ml @ 50 mls/hr Q2H IV 08/11/24 13:15 08/11/24 19:14 UNV Cefepime HCl 50 ml @ 12.5 mls/hr Q12HR IV 08/11/24 14:00 08/18/24 21:09 12.5 MLS/HR Metoprolol Tartrate 50 mg BID PO 08/12/24 16:15 08/18/24 21:11 50 MG Lisinopril 40 mg DAILY PO 08/13/24 10:00 08/18/24 10:57 40 MG Patient Own Medication 1 tab DAILY PO 08/13/24 10:00 UNV Levothyroxine Sodium 25 mcg QAM PO 08/14/24 07:00 08/19/24 06:15 25 MCG Levothyroxine Sodium 50 mcg QAM PO 08/14/24 07:00 08/19/24 06:15 50 MCG Haloperidol 2.5 mg Q8HPRN PRN PO 08/14/24 14:00 08/14/24 21:50 2.5 MG Amitriptyline HCl 100 mg HS PO 08/14/24 22:00 08/18/24 21:10 100 MG Apixaban 2.5 mg BID PO 08/14/24 22:00 08/18/24 21:11 2.5 MG Acetaminophen 650 mg Q6HP PRN PO 08/14/24 21:15 08/17/24 02:01 650 MG Acetaminophen/ Hydrocodone Bitart 1 tab Q6HPRN PRN PO 08/15/24 02:00 08/19/24 06:44 1 TAB Hydralazine HCl 10 mg Q6HP PRN IV 08/15/24 11:15 08/17/24 03:22 10 MG Labetalol HCl 20 mg Q2HPRN PRN IV 08/15/24 11:15 Nifedipine 30 mg HS PO 08/15/24 22:00 08/18/24 21:10 30 MG Furosemide 40 mg DAILY PO 08/16/24 10:00 08/18/24 10:56 40 MG objective HEENT: Head is atraumatic normocephalic, eyes PERRLA, ENT oropharynx moist and clear, neck supple, no tenderness, trachea midline, no masses no JVD. Chest: Denies chest pain, no diaphoresis, no mass adenopathy, no tenderness. Cardiac: Regular rate and rhythm, S1-S2 normal, no murmurs, no rubs or gallops. Pulmonary: No shortness of breath, lungs are clear to auscultation bilaterally, no wheezing, no rales or rhonchi. Abdomen: Soft, tender, nondistended, no masses, bowel sounds positive. Genitourinary: Denies dysuria, no urinary frequency, no hematuria. Skin: Skin warm and dry to touch no rash or lesion, no ulceration. Extremities: No clubbing, no edema, no tenderness, no varicosity. Neurologic: Grossly intact, no new focal motor deficit, no numbness or tingling. laboratory and microbiology Laboratory Tests 08/18/24 08:00 08/17/24 05:37 Test 08/18/24 08:00 Range/Units Serum Glucose 102 74-106 mg/dL Problem List SEPTIC JOINT S/P EXPLANTATION OF RIGHT KNEE PROSTHESIS WITH SPACERS NOW WITH CONFUSION METABOLIC ENCEPHALOPATHY SEVERE OSTEOARTHRITIS RIGHT KNEE EFFUSION LEUKOCYTOSIS ANEMIA PMH ORGANIC HEART DISEASE HTN CAD WITH HX OF PTCA STENT HX OF CHF HRpEF / DIASTOLIC AFIB HYPERCOAGULABLE STATE HYPOKALEMIA SEVERE CACHEXIA HYPERCALCEMIA Assessment/Plan ABX BLOOD CX ABG CXR IV FLUID LASIX TREAT HYPERCALCEMIA IMPROVING TO 10.7 CONSTIPATION FLEETS CALCIUM CORRECTED HYPERVENTILATION PT HYPERTENSION UNDER GOOD CONTROL HEMODYNAMICALLY STABLE SEPTIC JOINT CONT ABX IV Dietary Evaluation Review Comments: CCHO-60 Cardiac with 60 g prot restriction Expected Outcomes/Goals: gradual wt gain Plan discussed with: Patient ANISH DIAZ MD Aug 19, 2024 09:46
--- NOTE | 2024-08-19 10:44 | DVHPN2 ---
Subjective Patient denies any symptoms. Reviewed: Care Plan, H&P, Labs, Medications, Previous Orders Changes from previous H/P or p: No Changes General: Per HPI Eyes: No Pain, No Vision change, No Conjunctivae inflammation, No Eyelid inflammation, No Other, No Redness ENT: No Ear pain, No Ear discharge, No Nose pain, No Nose discharge, No Nose congestion, No Mouth pain, No Mouth swelling, No Throat pain, No Throat swelling, No Other Cardiovascular: No Chest Pain, No Palpitations, No Orthopnea, No Paroxysmal Noc. Dyspnea, No Edema, No Lt Headedness, No Other Respiratory: No Cough, No Dry, No Shortness of breath, No SOB with excertion, No Wheezing, No Hemoptysis, No Pleuritic Pain, No Sputum, No Other Gastrointestinal: No Nausea, No Vomiting, No Abdominal Pain, No Diarrhea, No Constipation, No Melena, No Hematochezia, No Other Genitourinary: No Dysuria, No Frequency, No Incontinence, No Hematuria, No Retention, No Other Musculoskeletal: No other, No neck pain, No shoulder pain, No arm pain, No back pain, No hand pain, No leg pain, No foot pain Skin: No Rash, No Lesions, No Jaundice, No Bruising, No Other Objective Vitals Vital Signs Date Time Temp Pulse Resp B/P (MAP) Pulse Ox O2 Delivery O2 Flow Rate FiO2 08/19/24 10:19 113/80 08/19/24 10:18 86 08/19/24 05:00 97.9 18 100 97.9 08/18/24 20:00 Room Air* 0 21 Intake/Output Intake and Output 08/19/24 07:00 Intake Total 840 ml Output Total 2650 ml Balance -1810 ml Intake Oral 740 ml IV Total 100 ml Output Urine Total 2650 ml # Bowel Movements 1 General Appearance: Alert, Oriented X3, Cooperative, mild distress HEENT: Atraumatic, PERRLA Lungs: Clear to auscultation, Normal air movement Cardiovascular: Normal S1, Normal S2 Abdomen: Normal bowel sounds Musculoskeletal: Normal sensory function, Normal motor function Neuro: Normal speech Skin: Dry, Intact Psych/Mental Status: Mental status NL, Mood NL Medications Current Medications Medications Dose Ordered Sig/Irene Route Start Time Stop Time Status Last Admin Dose Admin Alprazolam 0.5 mg BIDPRN PRN PO 08/10/24 11:15 08/18/24 17:46 0.5 MG Docusate Sodium 100 mg BID PO 08/10/24 22:00 08/19/24 10:17 100 MG Atorvastatin Calcium 10 mg HS PO 08/10/24 22:00 08/18/24 21:10 10 MG Ondansetron HCl 4 mg Q4HP PRN IV 08/10/24 12:15 08/19/24 01:20 4 MG Nitroglycerin 0.4 mg Q5MINP PRN SL 08/10/24 12:15 Morphine Sulfate 2 mg Q30M PRN IV 08/10/24 12:15 Diagnostic Test (Pha) 1 strip Q6HR 08/11/24 12:00 08/19/24 05:44 1 STRIP Insulin Human Regular Q6HR SC 08/11/24 12:00 Dextrose 50 ml UD PRN IV 08/11/24 08:45 Potassium Chloride 100 ml @ 50 mls/hr Q2H IV 08/11/24 13:15 08/11/24 19:14 UNV Cefepime HCl 50 ml @ 12.5 mls/hr Q12HR IV 08/11/24 14:00 08/19/24 10:17 12.5 MLS/HR Metoprolol Tartrate 50 mg BID PO 08/12/24 16:15 08/19/24 10:18 50 MG Lisinopril 40 mg DAILY PO 08/13/24 10:00 08/19/24 10:19 40 MG Patient Own Medication 1 tab DAILY PO 08/13/24 10:00 UNV Levothyroxine Sodium 25 mcg QAM PO 08/14/24 07:00 08/19/24 06:15 25 MCG Levothyroxine Sodium 50 mcg QAM PO 08/14/24 07:00 08/19/24 06:15 50 MCG Haloperidol 2.5 mg Q8HPRN PRN PO 08/14/24 14:00 08/14/24 21:50 2.5 MG Amitriptyline HCl 100 mg HS PO 08/14/24 22:00 08/18/24 21:10 100 MG Apixaban 2.5 mg BID PO 08/14/24 22:00 08/19/24 10:18 2.5 MG Acetaminophen 650 mg Q6HP PRN PO 08/14/24 21:15 08/17/24 02:01 650 MG Acetaminophen/ Hydrocodone Bitart 1 tab Q6HPRN PRN PO 08/15/24 02:00 08/19/24 06:44 1 TAB Hydralazine HCl 10 mg Q6HP PRN IV 08/15/24 11:15 08/17/24 03:22 10 MG Labetalol HCl 20 mg Q2HPRN PRN IV 08/15/24 11:15 Nifedipine 30 mg HS PO 08/15/24 22:00 08/18/24 21:10 30 MG Furosemide 40 mg DAILY PO 08/16/24 10:00 08/19/24 10:18 40 MG Laboratory Results Laboratory Tests 08/17/24 05:37 08/18/24 08:00 Urinalysis Test 08/10/24 03:46 Urine Color Light-yellow (Yellow) Urine Clarity Clear (Clear) Urine pH 7.0 (5.0-9.0) Urine Specific [place] 1.021 (1.001-1.035) Urine Protein 1+ (Negative) H Urine Ketones Negative (Negative) Urine Blood 1+ /uL (Negative) H Urine Nitrite Negative (Negative) Urine Bilirubin Negative (Negative) Urine Urobilinogen Normal mg/dL (Negative) Urine Leukocyte Esterase Negative /uL (Negative) Urine RBC 15 /hpf (0 - 4) Urine Microscopic WBC 3 /HPF (0-5) Urine Squamous Epithelial Cells None seen /hpf (<5) Urine Bacteria None seen /hpf (None Seen) Urine Glucose Normal mg/dL (Normal) Microbiology Microbiology Date/Time Source Procedure Growth Status 08/11/24 16:30 Nose MRSA Screen - Final Complete 08/10/24 17:57 Blood Blood Culture - Final NO GROWTH AFTER 5 DAYS OF INCUBATION. Complete 08/10/24 03:46 Voided Urine Urine Culture - Final Complete Labs and/or images reviewed: Labs reviewed by me, Image(s) reviewed by me Assessment/Plan Assessment/Plan Impression: -hypertensive crisis -metabolic encephalopathy -recent history of right knee septic arthritis , status post washing and removal of implant -hypokalemia -sepsis -atrial fibrillation -organic heart disease -history of CAD with PTCA Plan: Events: Patient now refusing to go to senior care facility. This was discussed with the case management yesterday. Apparently, the patient lives at home with a caregiver only arriving once a day to assess her. Unable to find family's phone number for further assessment of the patient's home life. Patient has not been ambulating in this hospital. PT consultation currently pending. Patient will require antibiotics twice a day for continue treatment of right knee septic arthritis with joint explant -continue Eliquis -continue antianxiety, antidepressants -continue cefepime -blood and urine cultures negative -right knee ultrasound with loculated effusion. No plans for joint aspiration. -social service consultation for reestablishing IV antibiotic therapy as well as transferred back to [facility] post-acute facility. Total time spent with patient discussing and formulating plan of care: 35 minutes. This medical document was created using an electronic medical record system with [employer] dictation system. Although this document has been carefully reviewed, there may still be some phonetic and typographical errors. These areas are purely typographical due to imperfections of the software programs, and do not reflect any compromise in the patient's medical care. Plan discussed with: Patient, Other (RN) My Orders Orders - FRANKIE MUSTAFA NP Procedure Category Date Status Time Pt Request For Service PT 08/18/24 Logged 14:04 Date of Service: Aug 19, 2024 Billing Provider: FRANKIE MUSTAFA NP Common Visit Codes: [id number] INP/OBS CARE(HIGH) FRANKIE MUSTAFA NP Aug 19, 2024 10:44
[2024-08-20 01:00] VITALS: BP 145/67; PULSE 62; RESP 21; TEMP 97.9; O2SAT 99
[2024-08-20 05:00] VITALS: BP 154/93; PULSE 63; RESP 17; TEMP 97.4; O2SAT 98
[2024-08-20 08:00] VITALS: PULSE 63
[2024-08-20 09:00] VITALS: BP 150/77; PULSE 69; RESP 16; TEMP 98.1; O2SAT 93
--- NOTE | 2024-08-20 12:23 | DVHPN2 ---
Progress Note - Dictate Date Seen: Aug 20, 2024 Medical Necessity Reason Pt with a Central, PICC or Fol: Yes The following are medically ne: Glass Catheter Subjective PT WITH REMOVAL OF KNEE PROSTHESIS SECONDARY TO SEPSIS RIGHT KNEE REPLACEMENT NOW WITH EFFUSION S/P ARTHROCENTESIS TOTAL RIGHT KNEE ARTHROPLASTY PT WITH SEVERE OSTEOARTHRITIS ORGANIC HEART DISEASE HTN CAD WITH HX OF PTCA STENT HX OF CHF HRpEF / DIASTOLIC AFIB HYPERCOAGULABLE STATE Respiratory: denies: cough, hemoptysis, orthopnea, SOB at rest, shortness of breath, SOB with exertion, stridor, wheezing, others Gastrointestinal: Reports: abdominal pain, diarrhea, melena, vomiting, denies; poor appetite, poor fluid intake; constipated, diarrhea, dysphagia, difficulty swallowing, hematemesis, melena, nausea, rectal bleeding, rectal pain, vomiting, others Genitourinary: denies: abnormal vagina bleeding, burning, dyspareunia, dysuria, flank pain, frequency, hematuria, incontinence, pain, , vagina discharge, urgency, others Neurological: denies: dizziness, fainting, headache, left sided numbness, left sided weakness, numbness, paresthesia, pre-existing deficit, right sided numbness, right sided weakness, seizure, speech problems, tingling, tremors, weakness, others Musculoskeletal: denies: back pain, gout, joint pain, joint swelling, muscle pain, muscle stiffness, neck pain, others Integumentary: Denies: bruises, change in color, change in hair/nails, dryness, laceration, lesions, lumps, rash, wounds, others Allergic/Immunocompromised: denies: Difficulty Healing, Frequent Infections, Hives, Itching, others Hematologic/Lymphatic: denies: anemia, blood clots, easy bleeding, easy bruising, swollen glands, others Endocrine: denies: excessive hunger, excessive sweating, excessive thirst, excessive urination, flushing, intolerance to cold, intolerance to heat, unexplained weight gain, unexplained weight loss, others vital signs Vital Sign Date Time Temp Pulse Resp B/P (MAP) Pulse Ox O2 Delivery O2 Flow Rate FiO2 08/20/24 10:44 65 125/60 08/20/24 09:00 98.1 16 93 98.1 08/20/24 08:00 Room Air* 0 21 Total Intake and Output 08/19/24 08/19/24 08/20/24 15:00 23:00 07:00 Intake Total 800 ml 1064 ml Output Total 1050 ml 1100 ml Balance -250 ml -36 ml medications Current Medications Medications Dose Ordered Sig/Irene Route Start Time Stop Time Status Last Admin Dose Admin Alprazolam 0.5 mg BIDPRN PRN PO 08/10/24 11:15 08/20/24 00:14 0.5 MG Docusate Sodium 100 mg BID PO 08/10/24 22:00 08/20/24 09:43 100 MG Atorvastatin Calcium 10 mg HS PO 08/10/24 22:00 08/19/24 22:10 10 MG Ondansetron HCl 4 mg Q4HP PRN IV 08/10/24 12:15 08/19/24 22:08 4 MG Nitroglycerin 0.4 mg Q5MINP PRN SL 08/10/24 12:15 Morphine Sulfate 2 mg Q30M PRN IV 08/10/24 12:15 Diagnostic Test (Pha) 1 strip Q6HR 08/11/24 12:00 08/20/24 05:52 1 STRIP Insulin Human Regular Q6HR SC 08/11/24 12:00 Dextrose 50 ml UD PRN IV 08/11/24 08:45 Potassium Chloride 100 ml @ 50 mls/hr Q2H IV 08/11/24 13:15 08/11/24 19:14 UNV Cefepime HCl 50 ml @ 12.5 mls/hr Q12HR IV 08/11/24 14:00 08/20/24 10:07 12.5 MLS/HR Metoprolol Tartrate 50 mg BID PO 08/12/24 16:15 08/20/24 09:44 50 MG Lisinopril 40 mg DAILY PO 08/13/24 10:00 08/20/24 09:43 40 MG Patient Own Medication 1 tab DAILY PO 08/13/24 10:00 UNV Levothyroxine Sodium 25 mcg QAM PO 08/14/24 07:00 08/20/24 06:00 25 MCG Levothyroxine Sodium 50 mcg QAM PO 08/14/24 07:00 08/20/24 06:00 50 MCG Haloperidol 2.5 mg Q8HPRN PRN PO 08/14/24 14:00 08/19/24 20:47 2.5 MG Amitriptyline HCl 100 mg HS PO 08/14/24 22:00 08/19/24 22:09 100 MG Apixaban 2.5 mg BID PO 08/14/24 22:00 08/20/24 09:44 2.5 MG Acetaminophen 650 mg Q6HP PRN PO 08/14/24 21:15 08/20/24 05:59 650 MG Acetaminophen/ Hydrocodone Bitart 1 tab Q6HPRN PRN PO 08/15/24 02:00 08/20/24 00:13 1 TAB Hydralazine HCl 10 mg Q6HP PRN IV 08/15/24 11:15 08/17/24 03:22 10 MG Labetalol HCl 20 mg Q2HPRN PRN IV 08/15/24 11:15 Nifedipine 30 mg HS PO 08/15/24 22:00 08/19/24 22:12 30 MG Furosemide 40 mg DAILY PO 08/16/24 10:00 08/20/24 09:44 40 MG objective HEENT: Head is atraumatic normocephalic, eyes PERRLA, ENT oropharynx moist and clear, neck supple, no tenderness, trachea midline, no masses no JVD. Chest: Denies chest pain, no diaphoresis, no mass adenopathy, no tenderness. Cardiac: Regular rate and rhythm, S1-S2 normal, no murmurs, no rubs or gallops. Pulmonary: No shortness of breath, lungs are clear to auscultation bilaterally, no wheezing, no rales or rhonchi. Abdomen: Soft, tender, nondistended, no masses, bowel sounds positive. Genitourinary: Denies dysuria, no urinary frequency, no hematuria. Skin: Skin warm and dry to touch no rash or lesion, no ulceration. Extremities: No clubbing, no edema, no tenderness, no varicosity. Neurologic: Grossly intact, no new focal motor deficit, no numbness or tingling. laboratory and microbiology Laboratory Tests 08/18/24 08:00 08/17/24 05:37 Test 08/18/24 08:00 Range/Units Serum Glucose 102 74-106 mg/dL Problem List SEPTIC JOINT S/P EXPLANTATION OF RIGHT KNEE PROSTHESIS WITH SPACERS NOW WITH CONFUSION METABOLIC ENCEPHALOPATHY SEVERE OSTEOARTHRITIS RIGHT KNEE EFFUSION LEUKOCYTOSIS ANEMIA PMH ORGANIC HEART DISEASE HTN CAD WITH HX OF PTCA STENT HX OF CHF HRpEF / DIASTOLIC AFIB HYPERCOAGULABLE STATE HYPOKALEMIA SEVERE CACHEXIA HYPERCALCEMIA Assessment/Plan ABX BLOOD CX ABG CXR IV FLUID LASIX TREAT HYPERCALCEMIA IMPROVING TO 10.7 CONSTIPATION FLEETS CALCIUM CORRECTED HYPERVENTILATION PT HYPERTENSION UNDER GOOD CONTROL HEMODYNAMICALLY STABLE SEPTIC JOINT CONT ABX IV Dietary Evaluation Review Comments: CCHO-60 Cardiac with 60 g prot restriction Expected Outcomes/Goals: gradual wt gain Plan discussed with: Patient ANISH DIAZ MD Aug 20, 2024 12:23
[2024-08-20 13:00] VITALS: BP 123/68; PULSE 65; RESP 16; TEMP 98; O2SAT 100
--- NOTE | 2024-08-20 13:52 | DVHPN2 ---
Subjective Patient denies any symptoms. Reviewed: Care Plan, H&P, Labs, Medications, Previous Orders Changes from previous H/P or p: No Changes General: Per HPI Eyes: No Pain, No Vision change, No Conjunctivae inflammation, No Eyelid inflammation, No Other, No Redness ENT: No Ear pain, No Ear discharge, No Nose pain, No Nose discharge, No Nose congestion, No Mouth pain, No Mouth swelling, No Throat pain, No Throat swelling, No Other Cardiovascular: No Chest Pain, No Palpitations, No Orthopnea, No Paroxysmal Noc. Dyspnea, No Edema, No Lt Headedness, No Other Respiratory: No Cough, No Dry, No Shortness of breath, No SOB with excertion, No Wheezing, No Hemoptysis, No Pleuritic Pain, No Sputum, No Other Gastrointestinal: No Nausea, No Vomiting, No Abdominal Pain, No Diarrhea, No Constipation, No Melena, No Hematochezia, No Other Genitourinary: No Dysuria, No Frequency, No Incontinence, No Hematuria, No Retention, No Other Musculoskeletal: No other, No neck pain, No shoulder pain, No arm pain, No back pain, No hand pain, No leg pain, No foot pain Skin: No Rash, No Lesions, No Jaundice, No Bruising, No Other Objective Vitals Vital Signs Date Time Temp Pulse Resp B/P (MAP) Pulse Ox O2 Delivery O2 Flow Rate FiO2 08/20/24 10:44 65 125/60 08/20/24 09:00 98.1 16 93 98.1 08/20/24 08:00 Room Air* 0 21 Intake/Output Intake and Output 08/20/24 07:00 Intake Total 1864 ml Output Total 2150 ml Balance -286 ml Intake Oral 1814 ml IV Total 50 ml Output Urine Total 2150 ml General Appearance: Alert, Oriented X3, Cooperative, mild distress HEENT: Atraumatic, PERRLA Lungs: Clear to auscultation, Normal air movement Cardiovascular: Normal S1, Normal S2 Abdomen: Normal bowel sounds Musculoskeletal: Normal sensory function, Normal motor function Neuro: Normal speech Skin: Dry, Intact Psych/Mental Status: Mental status NL, Mood NL Medications Current Medications Medications Dose Ordered Sig/Irene Route Start Time Stop Time Status Last Admin Dose Admin Alprazolam 0.5 mg BIDPRN PRN PO 08/10/24 11:15 08/20/24 00:14 0.5 MG Docusate Sodium 100 mg BID PO 08/10/24 22:00 08/20/24 09:43 100 MG Atorvastatin Calcium 10 mg HS PO 08/10/24 22:00 08/19/24 22:10 10 MG Ondansetron HCl 4 mg Q4HP PRN IV 08/10/24 12:15 08/19/24 22:08 4 MG Nitroglycerin 0.4 mg Q5MINP PRN SL 08/10/24 12:15 Morphine Sulfate 2 mg Q30M PRN IV 08/10/24 12:15 Potassium Chloride 100 ml @ 50 mls/hr Q2H IV 08/11/24 13:15 08/11/24 19:14 UNV Cefepime HCl 50 ml @ 12.5 mls/hr Q12HR IV 08/11/24 14:00 08/20/24 10:07 12.5 MLS/HR Metoprolol Tartrate 50 mg BID PO 08/12/24 16:15 08/20/24 09:44 50 MG Lisinopril 40 mg DAILY PO 08/13/24 10:00 08/20/24 09:43 40 MG Patient Own Medication 1 tab DAILY PO 08/13/24 10:00 UNV Levothyroxine Sodium 25 mcg QAM PO 08/14/24 07:00 08/20/24 06:00 25 MCG Levothyroxine Sodium 50 mcg QAM PO 08/14/24 07:00 08/20/24 06:00 50 MCG Haloperidol 2.5 mg Q8HPRN PRN PO 08/14/24 14:00 08/19/24 20:47 2.5 MG Amitriptyline HCl 100 mg HS PO 08/14/24 22:00 08/19/24 22:09 100 MG Apixaban 2.5 mg BID PO 08/14/24 22:00 08/20/24 09:44 2.5 MG Acetaminophen 650 mg Q6HP PRN PO 08/14/24 21:15 08/20/24 05:59 650 MG Acetaminophen/ Hydrocodone Bitart 1 tab Q6HPRN PRN PO 08/15/24 02:00 08/20/24 00:13 1 TAB Hydralazine HCl 10 mg Q6HP PRN IV 08/15/24 11:15 08/17/24 03:22 10 MG Labetalol HCl 20 mg Q2HPRN PRN IV 08/15/24 11:15 Nifedipine 30 mg HS PO 08/15/24 22:00 08/19/24 22:12 30 MG Furosemide 40 mg DAILY PO 08/16/24 10:00 08/20/24 09:44 40 MG Laboratory Results Laboratory Tests 08/17/24 05:37 08/18/24 08:00 Urinalysis Test 08/10/24 03:46 Urine Color Light-yellow (Yellow) Urine Clarity Clear (Clear) Urine pH 7.0 (5.0-9.0) Urine Specific [place] 1.021 (1.001-1.035) Urine Protein 1+ (Negative) H Urine Ketones Negative (Negative) Urine Blood 1+ /uL (Negative) H Urine Nitrite Negative (Negative) Urine Bilirubin Negative (Negative) Urine Urobilinogen Normal mg/dL (Negative) Urine Leukocyte Esterase Negative /uL (Negative) Urine RBC 15 /hpf (0 - 4) Urine Microscopic WBC 3 /HPF (0-5) Urine Squamous Epithelial Cells None seen /hpf (<5) Urine Bacteria None seen /hpf (None Seen) Urine Glucose Normal mg/dL (Normal) Microbiology Microbiology Date/Time Source Procedure Growth Status 08/11/24 16:30 Nose MRSA Screen - Final Complete 08/10/24 17:57 Blood Blood Culture - Final NO GROWTH AFTER 5 DAYS OF INCUBATION. Complete 08/10/24 03:46 Voided Urine Urine Culture - Final Complete Labs and/or images reviewed: Labs reviewed by me, Image(s) reviewed by me Assessment/Plan Assessment/Plan Impression: -hypertensive crisis -metabolic encephalopathy -recent history of right knee septic arthritis , status post washing and removal of implant -hypokalemia -sepsis -atrial fibrillation -organic heart disease -history of CAD with PTCA Plan: Events: Patient was agree[facility] IV antibiotic therapy as recommended by Orthopedic surgery. Patient ambulated with physical therapy. Long discussion made with the patient's caregiver as well as patient. All questions answered. Plans to be transferred to [facility] [place] today. -continue Eliquis -continue antianxiety, antidepressants -continue cefepime -blood and urine cultures negative -right knee ultrasound with loculated effusion. No plans for joint aspiration. Total time spent with patient discussing and formulating plan of care: 35 minutes. This medical document was created using an electronic medical record system with [employer] dictation system. Although this document has been carefully reviewed, there may still be some phonetic and typographical errors. These areas are purely typographical due to imperfections of the software programs, and do not reflect any compromise in the patient's medical care. Plan discussed with: Patient, Other (RN) My Orders Orders - FRANKIE MUSTAFA NP Procedure Category Date Status Time * Tankroom Worker CONS 08/19/24 Transmitted Consult 15:45 Date of Service: Aug 20, 2024 Billing Provider: FRANKIE MUSTAFA NP Common Visit Codes: [id number] INP/OBS CARE(HIGH) FRANKIE MUSTAFA NP Aug 20, 2024 13:52
[2024-08-20 16:21] VITALS: BP 123/68; PULSE 65; RESP 16; TEMP 98; O2SAT 100
== END 2024-08-20 17:00 | DRG 871 ==
LOC: ER 23:51 → EDBD 23:51 → EDUNIT# 08-10 12:01 → TELE 08-10 12:01 → OVERFLOW 08-11 16:13 → TELE-WESTW 08-12 23:30
PROVIDERS: ADMIT Nurse Practitioner Acute Care; ATTEND Nurse Practitioner Acute Care
DX: A41.9 Sepsis, unspecified organism (principal); G93.41 Metabolic encephalopathy; I67.4 Hypertensive encephalopathy; I16.9 Hypertensive crisis, unspecified; R64 Cachexia; D68.59 Other primary thrombophilia; M00.9 Pyogenic arthritis, unspecified; I13.0 Hypertensive heart and chronic kidney disease with heart failure and stage 1 through stage 4 chronic kidney disease, or unspecified chronic kidney disease; Z68.1 Body mass index [BMI] 19.9 or less, adult; E03.9 Hypothyroidism, unspecified; J44.9 Chronic obstructive pulmonary disease, unspecified; I50.9 Heart failure, unspecified; K59.00 Constipation, unspecified; N18.9 Chronic kidney disease, unspecified; E83.52 Hypercalcemia; E87.6 Hypokalemia; D64.9 Anemia, unspecified; I25.10 Atherosclerotic heart disease of native coronary artery without angina pectoris; K21.9 Gastro-esophageal reflux disease without esophagitis; E11.22 Type 2 diabetes mellitus with diabetic chronic kidney disease; E78.5 Hyperlipidemia, unspecified; K83.8 Other specified diseases of biliary tract; I48.91 Unspecified atrial fibrillation; M25.461 Effusion, right knee; M81.0 Age-related osteoporosis without current pathological fracture; Z95.5 Presence of coronary angioplasty implant and graft; Z96.651 Presence of right artificial knee joint; Z82.49 Family history of ischemic heart disease and other diseases of the circulatory system; Z80.8 Family history of malignant neoplasm of other organs or systems; Z80.6 Family history of leukemia; Z80.1 Family history of malignant neoplasm of trachea, bronchus and lung; Z91.81 History of falling; Z79.4 Long term (current) use of insulin
CPT/HCPCS: 36415; 36600; 70450; 70551; 71045; 73560; 74018; 74177; 76881; 80048; 80053; 80307; 80320; 81001; 82310; 82330; 82805; 82962; 83605; 83690; 83735; 83970; 84132; 84484; 85025; 85610; 85652; 86141; 87040; 87081; 87086; 92507; 92610; 93005; 97116; 97163; 97530; G0378; J2003; J2405; J2470; J3480

== ENCOUNTER → 2024-10-05 | Outpatient (CLI) | payer MEDICARE, MEDICAID ==
[~2024-10-05] MED LIST changes: -POTA-36 PO
--- NOTE | 2024-10-06 07:36 | DVH ---
CLINICAL INDICATION: 83 years old, Female; SEPTIC KNEE/ PAIN. TECHNIQUE: Noncontrast CT of the right knee was performed. Sagittal and coronal reformatted images ar e provided. COMPARISON: Radiographs of the right knee performed on 09/18/2024. CT Dose: CTDI volume is 15.34 mGy. Dose-length product is 281.39 mGy*cm FINDINGS: There is a total knee replacement. There is polyethylene tibial component surrounded by cement. The re is 4 mm circumferential lucency in between the cement and the proximal tibia compatible with loose kanchan. No circumferential lucency surrounding the femoral component. There is a cyst in the posterior cortex of the distal femur. There is a thick-walled, fairly large joint effusion. There is a locule of air within the effusion. There is cortical destruction of the patella. Extensive regional soft tissue swelling in the knee. IMPRESSION: 1. Status post total knee replacement with CT findings suggestive of loosening of the tibial componen t. Large thick-walled knee joint effusion containing air compatible with septic arthritis. Extensive soft tissue swelling. 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 All CT scans at this medical facility are performed using dose modulation techniques as appropriate t o a performed exam including the following: Automated exposure control was utilized; adjustment of th e MA and/or KV according to patient size; and use of iterative reconstruction technique.
== END | disposition home or self-care (01) ==
LOC: Rad HDHVI 15:17
PROVIDERS: ATTEND Internal Medicine Cardiovascular Disease
DX: M25.461 Effusion, right knee (principal); M79.89 Other specified soft tissue disorders; M25.561 Pain in right knee; Z96.651 Presence of right artificial knee joint
CPT/HCPCS: 73700

== ENCOUNTER 2025-01-18 12:46 | Inpatient (IN) | payer MEDICARE, MEDICAID ==
[~2025-01-18] VITALS: Ht 154.9 cm; Wt 57.6 kg
--- NOTE | 2025-01-18 12:52 | ED.PDOC ---
History of Present Illness HPI Comments 84-year-old female brought by paramedics from home because of right knee pain. She fell about a month ago landing on right knee since then she is unable to ambulate. She was here four months ago where she had right knee replacement. She has been having difficulty walking since the knee replacement. History of hypertension coronary artery disease chronic kidney disease. Denies any other symptoms. Time Seen by MD: 12:47 Primary Care Provider: ANISH Reviewed Notes: Nurses Notes, Medications, Allergies Allergies: Coded Allergies: NO KNOWN ALLERGIES (Unverified , 10/11/16) UNOBTAINABLE (Unverified , 08/10/24) Home Meds Reported Medications Potassium Chloride (Potassium Chloride ER) 20 Meq Tab, 1 TAB PO DAILY for 31 Days, #31 08/11/24 Lisinopril (Lisinopril) 40 Mg Tab, 1 TAB PO DAILY for 90 Days, #90 06/23/24 Amitriptyline HCl (Amitriptyline Hydrochlori) 100 Mg Tab, 1 TAB PO DAILY for 70 Days, #70 06/23/24 Sucralfate (Sucralfate) 1 Gm Tab, 1 TAB PO BID for 30 Days, #60 24 Ferrous Sulfate (Ferosul) 325 Mg Tab, 1 TAB PO BID for 30 Days, #60 24 Pantoprazole Sodium Sesquihydr (Pantoprazole Sodium Dr) 40 Mg Tab, 1 TAB PO BID for 90 Days, #180 24 Docusate Sodium (Docusate Sodium) 100 Mg Cap, 1 CAP PO BID for 30 Days, #60 24 Atorvastatin Calcium (Lipitor) 10 Mg Tab, 1 TAB PO DAILY for 90 Days, #90 24 Alprazolam (Alprazolam) 0.5 Mg Tab, 1 TAB PO BID for 30 Days, #60 06/23/24 Ondansetron HCl (Ondansetron Hydrochloride) 8 Mg Tab, 1 TAB PO BID PRN for NAUSEA / VOMITING for 30 Days, #60 24 Famotidine (Famotidine) 40 Mg Tab, 1 TAB PO BID for 90 Days, #180 24 Cholecalciferol (Gnp Vitamin D) 1,000 Unit Tab, 1 TAB PO DAILY for 90 Days, #90 24 Hydrocodone-Acetaminophen (Hydrocodone Bitartrate/AC 10-325 mg) 1 Tab Tab, 1 TAB PO BID, TAB 02/27/24 Diclofenac Sodium (Topical) (Voltaren Arthritis Pain) 1 % Gel, 1 % EX, GEL 02/27/24 Furosemide (Furosemide) 40 Mg Tab, 1 TAB PO BID for 90 Days, #180 02/27/24 Fluticasone Propionate (Fluticasone Propionate) 0.05 % Cre, 50 MCG SITA DAILY for 30 Days, MCG 02/27/24 Cyclobenzaprine Hcl (Cyclobenzaprine Hcl) 10 Mg Tab, 1 TAB PO BID for 30 Days, #60 02/27/24 Hydrochlorothiazide (Hydrochlorothiazide) 25 Mg Tab, 25 MG PO DAILY for 30 Days, MG 02/27/24 Diclofenac Sodium (Diclofenac Sodium Dr) 75 Mg Tab, 75 MG PO BID, TAB 02/27/24 Bupropion Hcl (Bupropion Hcl) 100 Mg Tab, 100 MG PO Q8HR for 30 Days, MG 02/27/24 Meclizine Hcl (Meclizine Hcl) 25 Mg Tab, 25 MG PO TID PRN for DIZZINESS for 30 Days, MG 02/27/24 Simvastatin (Simvastatin) 40 Mg Tab, 40 MG PO QPM for 30 Days 02/27/24 Carisoprodol (Carisoprodol) 350 Mg Tab, 350 MG PO QPM for 30 Days, MG 02/27/24 Tramadol Hcl (Tramadol Hcl) 50 Mg Tab, 50 MG PO BID, TAB 04/12/23 Pancrelipase (Lipase-Protease- (CREON) 36,000 Unt Cap, 1 CAP PO TID for 31 Days, #100 04/12/23 Loratadine (Loratadine) 10 Mg Cap, 10 MG PO, CAP 04/24/19 Metoprolol Succinate (Metoprolol Succinate Er) 25 Mg Tab, 25 MG PO DAILY, TAB 01/17/17 Levothyroxine Sodium (Levothyroxine Sodium) 75 Mcg Tab, 1 TAB PO DAILY for 90 Days, #90 12/24/16 Aspirin (Aspirin) 81 Mg Tab, 1 TAB PO DAILY for 90 Days, #90 12/24/16 Nitroglycerin (NTROSTAT SUBLINGUAL) 0.4 Mg Sl, 0.4 MG SL Q5MIN for FOR CHEST PAIN *MAY REPEAT EVERY 5 MINUTES X 3 TOTAL IF NO RELIEF, INITIATE ANALGESIC THERAPY. NOTIFY PHYSICIAN *Do not crush. 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, Unobtainable Family History Family History: Unknown Social History Smoker: Non-Smoker Alcohol: Denies ETOH Use Drugs: Denies Drug Use Lives In: Assisted Care, Snf Constitutional: denies: chills, diaphoresis, fatigue, fever, malaise, sweats, weakness, others EENTM: denies: blurred vision, double vision, ear bleeding, ear discharge, ear drainage, ear pain, ear ringing, eye pain, eye redness, hearing loss, mouth pain, mouth swelling, nasal discharge, nose bleeding, nose congestion, nose pain, photophobia, tearing, throat pain, throat swelling, voice changes, others Respiratory: denies: cough, hemoptysis, orthopnea, SOB at rest, shortness of breath, SOB with excertion, stridor, wheezing, others Cardiovascular: denies: chest pain, dizzy spells, diaphoresis, Dyspnea on exertion, edema, irregular heart beat, left arm pain, lightheadedness, pa lpitations, PND, syncope, others Gastrointestinal: denies: abdomen distended, abdominal pain, blood streaked bowels, constipated, diarrhea, dysphagia, difficulty swallowing, hematemesis, melena, nausea, poor appetite, poor fluid intake, rectal bleeding, rectal pain, vomiting, others Genitourinary: denies: abnormal vagina bleeding, burning, dyspareunia, dysuria, flank pain, frequency, hematuria, incontinence, pain, , vagina discharge, urgency, others Neurological: denies: dizziness, fainting, headache, left sided numbness, left sided weakness, numbness, paresthesia, pre-existing deficit, right sided numbness, right sided weakness, seizure, speech problems, tingling, tremors, weakness, others Musculoskeletal: reports: joint pain (Right knee); denies: back pain, gout, deborah nt swelling, muscle pain, muscle stiffness, neck pain, others Integumetry: denies: bruises, change in color, change in hair/nails, dryness, laceration, lesions, lumps, rash, wounds, others Allergic/Immunocompromised: denies: Difficulty Healing, Frequent Infections, Hives, Itching, others Hematologic/Lymphatic: denies: anemia, blood clots, easy bleeding, easy bruising, swollen glands, others Endocrine: denies: excessive hunger, excessive sweating, excessive thirst, excessive urination, flushing, intolerance to cold, intolerance to heat, unexplained weight gain, unexplained weight loss, others Psychiatric: denies: anxiety, bipolar disorder, depression, hopeless, panic disorder, schizophrenia, sleepless, suicidal, others Physical Exam General Appearance: Moderate Distress HEENT: Normal ENT Inspection, Pharynx Normal, TMs Normal Neck: Full Range of Motion, Non-Tender, Normal, Normal Inspection Respiratory: Chest Non-Tender, Lungs Clear, No Accessory Muscle Use, No Respiratory Distress, Normal Breath Sounds Cardiovascular: No Edema, No JVD, No Murmur, No Gallop, Normal Peripheral Pulses, Regular Rate/Rhythm Breast Exam: Deferred Gastrointestinal: No Organomegaly, Non Tender, No Pulsatile Mass, Normal Bowel Sounds, Soft Genitalia: Deferred Pelvic: Deferred Rectal: Deferred Extremities: Decreased range of motion (Right lower extremity), Swelling (Right knee) Musculoskeletal : Apperance: Normal Neurologic: Alert Cerebellar Function: NOT DONE Reflexes: NOT DONE Skin: Normal Color Peripheral Pulses: 3+ Radial (R), 3+ Radial (L) Lymphatic: No Adenopathy Was a procedure done? Was a procedure done?: No Differential Dx Considerations may include: Fracture Degenerative disease X-Ray, Labs, Meds, VS Vital Signs Date Time Temp Pulse Resp B/P (MAP) Pulse Ox O2 Delivery O2 Flow Rate FiO2 01/18/25 13:00 98.0 73 18 151/88 (109) 98 98.0 01/18/25 13:00 Room Air* 0 21 Lab Test 01/18/25 13:18 Range/Units White Blood Count 10.9 H 4.4-10.8 10^3/uL Red Blood Count 3.20 L 4.0-5.20 10^6/uL Hemoglobin 8.7 L 12.2-16.2 g/dL Hematocrit 25.7 L 36.0-46.0 % Mean Corpuscular Volume 80.5 80.0-100.0 fL Mean Corpuscular Hemoglobin 27.1 L 28.0-32.0 pg Mean Corpuscular Hemoglobin Concent 33.7 32.0-36.0 g/dL Red Cell Distribution Width 17.6 H 11.8-14.3 % Platelet Count 848 *H 140-450 10^3/uL Mean Platelet Volume 5.3 L 6.9-10.8 fL Neutrophils (%) (Auto) 74.9 37.0-80.0 % Lymphocytes (%) (Auto) 13.7 10.0-50.0 % Monocytes (%) (Auto) 10.8 0.0-12.0 % Eosinophils (%) (Auto) 0.3 0.0-7.0 % Basophils (%) (Auto) 0.3 0.0-2.0 % Neutrophils # (Auto) 8.1 1.6-8.6 10 ^3/uL Lymphocytes # (Auto) 1.5 0.4-5.4 10 ^3/uL Monocytes # (Auto) 1.2 0-1.3 10 ^3/uL Eosinophils # (Auto) 0 0-0.8 10 ^3/uL Basophils # (Auto) 0 0-0.2 10 ^3/uL Nucleated Red Blood Cells 0.1 % Platelet Estimate Pending Sodium Level 135 L 136-145 mmol/L Potassium Level 4.1 3.5-5.1 mmol/L Chloride Level 104 98-107 mmol/L Carbon Dioxide Level 22 20-31 mmol/L Anion Gap 9 5-15 Blood Urea Nitrogen 25 H 9-23 mg/dL Creatinine 0.69 0.550-1.02 mg/dL Glomerular Filtration Rate Calc 84 >90 mL/min BUN/Creatinine Ratio 36.2 H 10.0-20.0 Serum Glucose 103 74-106 mg/dL Calcium Level 9.0 8.7-10.4 mg/dL Troponin I High Sensitivity 19 </=34 ng/L [address] [address] Ph: [phone] DIAGNOSTIC IMAGING Diagnostic Imaging Report : [id number] Signed PATIENT: CAROL TARANGO DACCT: [id number] UNIT: [id number] : 1940 LOC: ER ROOM / BED: / AGE / SEX: 84 / F ADM STATUS: REG ER SERVICE 1252 ORDERING PHYSICIAN: MEGGAN NEVAREZ MD PROCEDURE(s): RKNCT - CT R KNEE WO CONTRAST REASON: fall ORDER NUMBER(s): [id number], ACCESSION NUMBER(s): [id number] EXAM: CT CT R KNEE WO CONTRAST HISTORY: fall COMPARISON: CT CT R KNEE WO CONTRAST on DOS: 10/05/24 TECHNIQUE: Noncontrast axial CT images of the right knee were performed. Sagittal and coronal reformatted images were obtained. This CT exam was performed using one or more of the following dose reduction techniques: Automated exposure control, adjustment of the mA and/or kV according to patient size, or use of iterative reconstruction technique. Radiation Dose Information: CT Dose: CTDI volume is 7.75 mGy. Dose-length product is 274.53 mGy*cm FINDINGS/IMPRESSION: 1. No acute fracture of the right knee. 2. Interval removal of the previous total knee arthroplasty in placement distal femoral intramedullary digna, proximal tibial intramedullary digna, and cement spacer, presumably antibiotic eluting. The bone along the anterior margin of the tibial intramedullary digna is quite thin and likely dehiscent (image 38, series 602; images 222-269, series 3). 3. Moderate to large right knee effusion, with some calcifications in the joint fluid and other irregular calcifications in the soft tissues about the right knee. Additionally, there is generalized subcutaneous edema about the right knee. ATED BY: FORREST CUENCA MD DICTATED DATE/TIME: 01/18/251431 SIGNED BY: FORREST CUENCA MD SIGNED DATE/TIME: 01/18/251431 CC: [place] [id number] Ph: [phone] DIAGNOSTIC IMAGING Diagnostic Imaging Report : [id number] Signed PATIENT: CAROL TARANGO ACCT: [id number] UNIT: [id number] : 1940 LOC: ER ROOM / BED: / AGE / SEX: 84 / F ADM STATUS: REG ER SERVICE 1252 ORDERING PHYSICIAN: MEGGAN NEVAREZ MD PROCEDURE(s): CXRP - CHEST PORTABLE REASON: sob ORDER NUMBER(s): [id number], ACCESSION NUMBER(s): [id number] CHEST RADIOGRAPH Indication: sob Technique: Single frontal view of the chest was obtained Comparison: XY CHEST PORTABLE on DOS: 06/24/24, CXRP on DOS: 11/16/21, CXRP on DOS: 11/12/21 FINDINGS: Lines and Tubes: None Lungs: No focal consolidation. Mild interstitial prominence Pleura: No effusion. No pneumothorax. Cardiomediastinal contours: Unremarkable Bones: No acute osseous abnormality. IMPRESSION: Mild interstitial prominence which may be from emphysematous changes with underlying pulmonary vascular congestion/ infectious process not excluded. ATED BY: RACHAEL CHANDLER DO DICTATED DATE/TIME: 01/18/25 1354 SIGNED BY: RACHAEL CHANDLER DO SIGNED DATE/TIME: 01/18/25 1354 CC: Patient alert. Complaining of right knee pain. Had surgery done four months ago on that knee pain Vitals stable. She did fall landing on the surgical knee. Was given morphine. Was given Zofran. Reviewed her previous visit. Dr. Allen had performed the surgery. Cardiac marker within normal limits. WBC slightly elevated. She is anemic. Platelets are elevated. Explained to the patient. Continue monitoring. Time of 1ST Reevaluation: 12:50 Reevaluation 1ST: Unchanged Patient Education/Counseling: Diagnosis, Treatment, Prognosis Family Education/Counseling: No Family Present SEPSIS Sepsis Screen Physician Orders Ct R Knee Wo Contrast (01/18/25 12:52) Complete Blood Count (01/18/25 12:52) Chest Portable (01/18/25 12:52) Urinalysis (01/18/25 12:52) Rbc Morphology (01/18/25 13:18) Vital Signs Date Time Temp Pulse Resp B/P (MAP) Pulse Ox O2 Delivery O2 Flow Rate FiO2 01/18/25 13:00 98.0 73 18 151/88 (109) 98 98.0 01/18/25 13:00 Room Air* 0 21 Laboratory Tests Test 01/18/25 13:18 White Blood Count 10.9 10^3/uL (4.4-10.8) H Departure 1 Departure Time of Disposition: 12:51 Impression: Primary Impression: Knee effusion, right Additional Impression: Thrombocytosis Disposition: ADMITTED INPATIENT Admit to: Med Surg Condition: Guarded Critical Care Note Critical Care Time?: No Stability Stability form required: No Heart Score Heart Score: Heart Score Response (Comments) Value History N/A 0 EKG N/A 0 Age N/A 0 Risk Factors N/A 0 Troponin N/A 0 Total 0 I personally scribed for MEGGAN NEVAREZ MD ([email or web address]) on 01/18/25 at 14:44. Electronically submitted by Rylee Rushing ([email or web address]). I personally scribed for MEGGAN NEVAREZ MD ([email or web address]) on 01/18/25 at 14:45. Electronically submitted by Rylee Rushing ([employer]). MEGGAN NEVAREZ MD Jan 18, 2025 12:52
[2025-01-18 13:46] LABS: Hematocrit 25.7 % (36.0-46.0); Hemoglobin 8.7 g/dL (12.2-16.2); Mean Corpuscular Hemoglobin 27.1 pg (28.0-32.0); Mean Corpuscular Volume 80.5 fL (80.0-100.0); Nucleated Red Blood Cells % 0.1 %
--- NOTE | 2025-01-18 13:56 | DVH ---
CHEST RADIOGRAPH Indication: sob Technique: Single frontal view of the chest was obtained Comparison: XY CHEST PORTABLE on DOS: 06/24/24, CXRP on DOS: 11/16/21, CXRP on DOS: 11/12/21 FINDINGS: Lines and Tubes: None Lungs: No focal consolidation. Mild interstitial prominence Pleura: No effusion. No pneumothorax. Cardiomediastinal contours: Unremarkable Bones: No acute osseous abnormality. IMPRESSION: Mild interstitial prominence which may be from emphysematous changes with underlying pulmonary vascul ar congestion/ infectious process not excluded.
[2025-01-18 13:59] LABS: Anion Gap 9 (5-15); Carbon Dioxide 22 mmol/L (20-31); Chloride 104 mmol/L (98-107); Potassium 4.1 mmol/L (3.5-5.1)
[2025-01-18 14:00] LABS: Calcium 9.0 mg/dL (8.7-10.4)
[2025-01-18 14:05] LABS: BUN/Creatinine Ratio 36.2 (10.0-20.0); Glucose 103 mg/dL (74-106)
[2025-01-18 14:07] LABS: Blood Urea Nitrogen 25 mg/dL (9-23); Sodium 135 mmol/L (136-145)
--- NOTE | 2025-01-18 14:34 | DVH ---
EXAM: CT CT R KNEE WO CONTRAST HISTORY: fall COMPARISON: CT CT R KNEE WO CONTRAST on DOS: 10/05/24 TECHNIQUE: Noncontrast axial CT images of the right knee were performed. Sagittal and coronal reforma tted images were obtained. This CT exam was performed using one or more of the following dose reducti on techniques: Automated exposure control, adjustment of the mA and/or kV according to patient size, or use of iterative reconstruction technique. Radiation Dose Information: CT Dose: CTDI volume is 7.7 5 mGy. Dose-length product is 274.53 mGy*cm FINDINGS/IMPRESSION: 1. No acute fracture of the right knee. 2. Interval removal of the previous total knee arthroplasty in placement distal femoral intramedullar y digna, proximal tibial intramedullary digna, and cement spacer, presumably antibiotic eluting. The bone along the anterior margin of the tibial intramedullary digna is quite thin and likely dehiscent (image 38, series 602; images 222-269, series 3). 3. Moderate to large right knee effusion, with some calcifications in the joint fluid and other irreg ular calcifications in the soft tissues about the right knee. Additionally, there is generalized subc utaneous edema about the right knee.
[2025-01-18] MEDS: SODIUM CHLORIDE 0.9% 1,000 ML IV ONE (15:20)
[2025-01-18] MEDS: ONDANSETRON HCL 4 MG/2 ML VIAL IV ONE (15:23)
[2025-01-18] MEDS: MORPHINE SULFATE 4 MG/ML SYR/VIAL IV ONE (15:25)
[2025-01-18] MEDS ORDERED: ONDANSETRON HCL 4 MG/2 ML VIAL IV PRN (16:00)
[2025-01-18] MEDS: SODIUM CHLORIDE 0.9% 1,000 ML IV SCH (16:13)
--- NOTE | 2025-01-18 17:23 | DVHHP2 ---
History of Present Illness Reason for Visit: Knee effusion, right History of Present Illness The patient is a 84-year-old female with multiple past medical history including anemia, anxiety, CHF, depression, thyroid disease, and hypertension who presented to [facility] with complaint of right knee pain. Patient reports she fell about a month ago landing on right knee, since then she was unable to ambulate. She was here 4 months ago where she had right knee replacement and has been having difficulty walking since the knee replacement. Patient was seen and evaluated in the ED, laboratory data shows WBC 10.9, hemoglobin 8.7, hematocrit 25.7, platelets is 48, sodium 135, potassium 4.1, BUN 25, creatinine 0.69, glucose 109, calcium 9.0, troponin 19, blood pressure 168/68, heart rate 72, temperature 97.6 F, O2 saturation 98% on room air. Right knee CT revealing moderate to large right knee effusion, with some calcification in the joint fluid and irregular calcifications in the soft tissue about the right knee, additionally is generalized subcutaneous edema about right knee; no acute fracture of the right knee. Chest x-ray revealing mild interstitial prominence which may be from emphysematous changes with underlying pulmonary vascular congestion/infectious process not excluded. Please see medication orders section in the computer. On my assessment, patient denied chest pain, no headache, no dizziness, no shortness of breaths, no nausea, no vomiting, no fever, no chills. Patient was admitted for further evaluation and medical management. Past Medical History Anemia, Anxiety, Arthritis, CAD, CHF, CKF, Depression, GERD, High Lipids, HTN, Thyroid Past Surgical History Appendectomy, Hysterectomy Family History Reviewed, noncontributory to the management of this case. Past Social History Patient lives [facility], denies smoking, no alcohol or illicit drugs abuse. Review of Systems Constitutional: Yes: Weakness; No: Fever, Chills, Sweats, Malaise, Other Eyes: No: Pain, Vision change, Conjunctivae inflammation, Eyelid inflammation, Other, Redness ENT: No: Ear pain, Ear discharge, Nose pain, Nose discharge, Nose congestion, Mouth pain, Mouth swelling, Throat pain, Throat swelling, Other Respiratory: No: Cough, Dry, Shortness of breath, SOB with excertion, Wheezing, Hemoptysis, Pleuritic Pain, Sputum, Wheezing, Other Cardiovascular: No: Chest Pain, Palpitations, Orthopnea, Paroxysmal Noc. Dyspnea, Edema, Lt Headedness, Other Gastrointestinal: No: Nausea, Vomiting, Abdominal Pain, Diarrhea, Constipation, Melena, Hematochezia, Other Genitourinary: No Dysuria, No Frequency, No Incontinence, No Hematuria, No Retention, No Other Musculoskeletal: other (Joint pain, right knee); No: neck pain, shoulder pain, arm pain, back pain, hand pain, leg pain, foot pain Skin: No: Rash, Lesions, Jaundice, Bruising, Other Neurological: No: Weakness, Numbness, Incoordination, Change in speech, Confusion, Seizures, Other Allergies: Coded Allergies: NO KNOWN ALLERGIES (Unverified , 10/11/16) UNOBTAINABLE (Unverified , 08/10/24) Medications Current Medications Medications Dose Ordered Sig/Irene Route Start Time Stop Time Status Last Admin Dose Admin Atorvastatin Calcium 10 mg HS PO 01/18/25 22:00 Aspirin 81 mg DAILY PO 01/19/25 10:00 Famotidine 20 mg DAILY IV 01/18/25 22:00 Levothyroxine Sodium 75 mcg QAM@0600 PO 01/19/25 06:00 Clonidine HCl 0.1 mg Q4HP PRN PO 01/18/25 16:00 Metoprolol Tartrate 25 mg BID PO 01/18/25 22:00 Sodium Chloride 1,000 ml @ 60 mls/hr [id number] IV 01/18/25 16:00 01/18/25 16:13 60 MLS/HR Acetaminophen/ Hydrocodone Bitart 1 tab Q4HP PRN PO 01/18/25 16:00 Ondansetron HCl 4 mg Q4HP PRN IV 01/18/25 16:00 Docusate Sodium 100 mg BIDPRN PRN PO 01/18/25 16:00 Acetaminophen 650 mg Q6HP PRN PO 01/18/25 16:00 Exam Vital Signs Vital Signs Date Time Temp Pulse Resp B/P (MAP) Pulse Ox O2 Delivery O2 Flow Rate FiO2 01/18/25 15:26 97.6 71 20 168/68 (101) 98 97.6 01/18/25 13:00 Room Air* 0 21 General Appearance: Alert, Oriented X3, Cooperative, No acute distress HEENT: Atraumatic, PERRLA, EOMI, Mucous membr. moist/pink Respiratory: Normal air movement Cardiovascular: Regular rate, Normal S1, Normal S2, No murmurs Abdominal: Normal bowel sounds, Soft, No tenderness, No hepatospenomegaly, No masses Extremities: No clubbing, No cyanosis, Normal pulses, Other (Right knee swelling/tenderness) Skin: No rashes, No significant lesion Neuro: Normal speech, Normal tone, Sensation intact, Cranial nerves 3-12 NL, Reflexes 2+, Other (Weakness) Psych/Mental Status: Mental status NL, Mood NL Labs/Xrays Labs Test 01/18/25 13:18 Range/Units White Blood Count 10.9 H 4.4-10.8 10^3/uL Red Blood Count 3.20 L 4.0-5.20 10^6/uL Hemoglobin 8.7 L 12.2-16.2 g/dL Hematocrit 25.7 L 36.0-46.0 % Mean Corpuscular Volume 80.5 80.0-100.0 fL Mean Corpuscular Hemoglobin 27.1 L 28.0-32.0 pg Mean Corpuscular Hemoglobin Concent 33.7 32.0-36.0 g/dL Red Cell Distribution Width 17.6 H 11.8-14.3 % Platelet Count 848 *H 140-450 10^3/uL Mean Platelet Volume 5.3 L 6.9-10.8 fL Neutrophils (%) (Auto) 74.9 37.0-80.0 % Lymphocytes (%) (Auto) 13.7 10.0-50.0 % Monocytes (%) (Auto) 10.8 0.0-12.0 % Eosinophils (%) (Auto) 0.3 0.0-7.0 % Basophils (%) (Auto) 0.3 0.0-2.0 % Neutrophils # (Auto) 8.1 1.6-8.6 10 ^3/uL Lymphocytes # (Auto) 1.5 0.4-5.4 10 ^3/uL Monocytes # (Auto) 1.2 0-1.3 10 ^3/uL Eosinophils # (Auto) 0 0-0.8 10 ^3/uL Basophils # (Auto) 0 0-0.2 10 ^3/uL Nucleated Red Blood Cells 0.1 % Platelet Estimate Markedly increased Sodium Level 135 L 136-145 mmol/L Potassium Level 4.1 3.5-5.1 mmol/L Chloride Level 104 98-107 mmol/L Carbon Dioxide Level 22 20-31 mmol/L Anion Gap 9 5-15 Blood Urea Nitrogen 25 H 9-23 mg/dL Creatinine 0.69 0.550-1.02 mg/dL Glomerular Filtration Rate Calc 84 >90 mL/min BUN/Creatinine Ratio 36.2 H 10.0-20.0 Serum Glucose 103 74-106 mg/dL Calcium Level 9.0 8.7-10.4 mg/dL Troponin I High Sensitivity 19 </=34 ng/L B-Type Natriuretic Peptide 239.01 0-100 pg/mL Thyroid Stimulating Hormone (TSH) 3.31 0.55-4.78 uIU/mL PATIENT: CAROL TARANGO DACCT: [id number] UNIT: [id number] : 1940 LOC: ER ROOM / BED: / AGE / SEX: 84 / F ADM STATUS: REG ER SERVICE 1252 ORDERING PHYSICIAN: MEGGAN NEVAREZ MD PROCEDURE(s): RKNCT - CT R KNEE WO CONTRAST REASON: fall ORDER NUMBER(s): [id number], ACCESSION NUMBER(s): [id number] EXAM: CT CT R KNEE WO CONTRAST HISTORY: fall COMPARISON: CT CT R KNEE WO CONTRAST on DOS: 10/05/24 TECHNIQUE: Noncontrast axial CT images of the right knee were performed. Sagittal and coronal reformatted images were obtained. This CT exam was performed using one or more of the following dose reduction techniques: Automated exposure control, adjustment of the mA and/or kV according to patient size, or use of iterative reconstruction technique. Radiation Dose Information: CT Dose: CTDI volume is 7.75 mGy. Dose-length product is 274.53 mGy*cm FINDINGS/IMPRESSION: 1. No acute fracture of the right knee. 2. Interval removal of the previous total knee arthroplasty in placement distal femoral intramedullary digna, proximal tibial intramedullary digna, and cement spacer, presumably antibiotic eluting. The bone along the anterior margin of the tibial intramedullary digna is quite thin and likely dehiscent (image 38, series 602; images 222-269, series 3). 3. Moderate to large right knee effusion, with some calcifications in the joint fluid and other irregular calcifications in the soft tissues about the right knee. Additionally, there is generalized subcutaneous edema about the right knee. ORDERING PHYSICIAN: MEGGAN NEVAREZ MD PROCEDURE(s): CXRP - CHEST PORTABLE REASON: sob ORDER NUMBER(s): [id number], ACCESSION NUMBER(s): [id number] CHEST RADIOGRAPH Indication: sob Technique: Single frontal view of the chest was obtained Comparison: XY CHEST PORTABLE on DOS: 06/24/24, CXRP on DOS: 11/16/21, CXRP on DOS: 11/12/21 FINDINGS: Lines and Tubes: None Lungs: No focal consolidation. Mild interstitial prominence Pleura: No effusion. No pneumothorax. Cardiomediastinal contours: Unremarkable Bones: No acute osseous abnormality. IMPRESSION: Mild interstitial prominence which may be from emphysematous changes with underlying pulmonary vascular congestion/infectious process not excluded. SEPSIS Sepsis Screen Date sepsis recognized/suspect: Jan 18, 2025 Time Sepsis recognized/suspect: 1300 Recent Procedure: No On Antibiotic Therapy: No Respiratory Rate >20: No Heart Rate >90: No Temp<36 C (96.8 F) or >38.3 C: No SBP <90 or MAP <65 mmHG: No New Acute Mental Status Change: No Is the patient on CPAP, BIPAP,: No Physician Orders Ct R Knee Wo Contrast (01/18/25 12:52) Chest Portable (01/18/25 12:52) Urinalysis (01/18/25 12:52) Atorvastatin (Lipitor) (01/18/25 22:00) Aspirin Tablet (01/19/25 10:00) Famotidine Injection (Pepcid Injection) (01/18/25 22:00) Levothyroxine Tablet (Synthroid Tablet) (01/19/25 06:00) Clonidine Hcl Tablet (Catapres Tablet) (01/18/25 16:00) Metoprolol Tartrate Tablet (Lopressor Ta (01/18/25 22:00) Allergies (01/18/25 15:59) Code Status (01/18/25 15:59) Sodium Chloride 0.9% (01/18/25 16:00) Oxygen Per Hour (01/18/25 15:59) Hydrocodone-Acet 5/325mg Tab ([place] 5/32 (01/18/25 16:00) Ondansetron Hcl (Zofran) (01/18/25 16:00) Docusate Sodium Capsule (Colace Capsule) (01/18/25 16:00) Fall Risk Precautions In Place QSHIFT (01/18/25 15:59) Complete Blood Count (01/19/25 04:00) Comprehensive Metabolic Panel (01/19/25 04:00) Cardiac Diet-2gna,Lofat,Lochol (01/18/25 Dinner) Condition: Serious (01/18/25 15:59) Acetaminophen Tablet (Tylenol Tablet) (01/18/25 16:00) Maintain Bed Rest (01/18/25 15:59) Sequential Compression Device (01/18/25 ) Type And Screen (01/18/25 17:18) * Orthopedic Consult (01/18/25 17:18) Enoxaparin Sodium (Lovenox) (01/18/25 17:30) Enoxaparin Sodium (Lovenox) (01/19/25 10:00) Admit (01/18/25 17:18) Nitroglycerin Sublingual (Ntrostat Subli (01/18/25 17:30) Morphine Sulfate Injection (01/18/25 17:30) Notify Md Of Changes From Base (01/18/25 17:18) Emergency Dysrhythmia Protocol (01/18/25 17:18) Rhythm Strips Once Every Shift (01/18/25 17:18) Oxygen By Nasal Cannula (01/18/25 17:18) Vital Signs Date Time Temp Pulse Resp B/P (MAP) Pulse Ox O2 Delivery O2 Flow Rate FiO2 01/18/25 15:26 97.6 71 20 168/68 (101) 98 97.6 01/18/25 15:25 71 20 168/68 01/18/25 13:00 98.0 73 18 151/88 (109) 98 98.0 01/18/25 13:00 Room Air* 0 21 Laboratory Tests Test 01/18/25 13:18 White Blood Count 10.9 10^3/uL (4.4-10.8) H Medications Medications Dose Ordered Sig/Irene Route Start Time Stop Time Status Last Admin Dose Admin Morphine Sulfate 4 mg ONCE ONCE IV 01/18/25 13:00 01/18/25 13:01 DC 7/21/25 15:25 4 MG Ondansetron HCl 4 mg ONCE ONCE IV 01/18/25 13:00 01/18/25 13:01 DC 01/18/25 15:23 4 MG Sodium Chloride 1,000 ml @ 60 mls/hr [id number] IV 01/18/25 16:00 01/18/25 16:13 60 MLS/HR Sodium Chloride 1,000 ml @ 1,000 mls/hr Q1H ONCE IV 01/18/25 13:00 01/18/25 13:59 DC 01/18/25 15:20 1,000 MLS/HR Assessment/Plan Assessment/Plan Knee effusion, right Thrombocytosis Anemia, unspecified Leukocytosis, unspecified Generalized weakness Plan 1. Admit to med surge unit 2. Breathing treatment 3. Pain control management 4. IV antibiotic management 5. Management of fluids and electrolytes 6. Consultation for orthopedic 7. Diagnostic test right knee CT 8. DVT prophylaxis-on Lovenox 9. Repeat labs CBC, CMP in a.m. 10. Home medication reviewed and reconciled 11. Continue with current medical management 12. Treatment plan discussed with patient and RN. Patient verbalized understanding. Plan discussed with: Patient, Other (RN) My Orders Orders - FELICIANO ISSA DNP Procedure Category Date Status Time Atorvastatin (Lipitor) PHA 01/18/25 In Process 22:00 Aspirin Tablet PHA 01/19/25 In Process 10:00 Famotidine Injection PHA 01/18/25 In Process (Pepcid Injection) 22:00 Levothyroxine Tablet PHA 01/19/25 In Process (Synthroid Tablet) 06:00 Clonidine Hcl Tablet PHA 01/18/25 In Process (Catapres Tablet) 16:00 Metoprolol Tartrate PHA 01/18/25 In Process Tablet (Lopressor Ta 22:00 Allergies ROSSI 01/18/25 In Process 15:59 Code Status CODE 01/18/25 Transmitted 15:59 Sodium Chloride 0.9% PHA 01/18/25 In Process 16:00 Oxygen Per Hour RT 01/18/25 Transmitted 15:59 Hydrocodone-Acet PHA 01/18/25 In Process 5/325mg Tab ([place] 16:00 Ondansetron Hcl PHA 01/18/25 In Process (Zofran) 16:00 Docusate Sodium PHA 01/18/25 In Process Capsule (Colace 16:00 Fall Risk Precautions ROSSI 01/18/[address] 15:59 Complete Blood Count LAB 01/19/25 Verified 04:00 Comprehensive LAB 01/19/25 Verified Metabolic Panel 04:00 Cardiac DIET 01/18/25 Transmitted Diet-2gna,Lofat,Lochol Dinner Condition: Serious ROSSI 01/18/25 In Process 15:59 Acetaminophen Tablet PHA 01/18/25 In Process (Tylenol Tablet) 16:00 Maintain Bed Rest ROSSI 01/18/25 In Process 15:59 Sequential ROSSI 01/18/25 In Process Compression Device Type And Screen BBK 01/18/25 Transmitted 17:18 * Orthopedic Consult CONS 01/18/25 Transmitted 17:18 Enoxaparin Sodium PHA 01/18/25 Transmitted (Lovenox) 17:30 Enoxaparin Sodium [facility] 01/19/25 Transmitted (Lovenox) 10:00 Admit ADMIT 01/18/25 Transmitted 17:18 Nitroglycerin [facility] 01/18/25 Transmitted Sublingual (Ntrostat 17:30 Morphine Sulfate [facility] 01/18/25 Transmitted Injection 17:30 Notify Md Of Changes [facility] 01/18/25 Transmitted From Base 17:18 Emergency Dysrhythmia [facility] 01/18/25 Transmitted Protocol 17:18 Rhythm Strips Once [facility] 01/18/25 Transmitted Every Shift 17:18 Oxygen By Nasal RT 01/18/25 Transmitted Cannula 17:18 Problem List: (1) Knee effusion, right (2) Thrombocytosis (3) Anemia, unspecified (4) Leukocytosis, unspecified (5) Generalized weakness Date of Service: Jan 18, 2025 Billing Provider: FELICIANO ISSA DNP Common Visit Codes: [id number] INP/OBS CARE (HIGH) FELICIANO ISSA DNP Jan 18, 2025 17:23
[2025-01-18] MEDS ORDERED: NITROGLYCERIN 0.4 MG SL TAB SL PRN (17:30)
[2025-01-18] MEDS: ENOXAPARIN SOD 40 MG/0.4 ML SYRINGE SC ONE (17:34)
[2025-01-18 19:42] LABS: Urine Budding Yeast OCCASIONAL /hpf (None Seen); Urine Protein, UAD 1+ (Negative)
[2025-01-18 20:03] LABS: Hematocrit 26.9 % (36.0-46.0); Mean Corpuscular Hemoglobin 27.4 pg (28.0-32.0)
[2025-01-18 20:05] LABS: Hemoglobin 9.0 g/dL (12.2-16.2); Mean Corpuscular Volume 81.8 fL (80.0-100.0); Nucleated Red Blood Cells % 0.2 %
[2025-01-18] MEDS: MORPHINE SULFATE INJ 2 MG/ml SYRG IV PRN (20:58)
--- NOTE | 2025-01-18 21:10 | DVHINCON2 ---
Consult Note Consult Consult Note Reason for Consult: Evaluation of painful, swollen right periprosthetic kneeconcern for possible periprosthetic joint infection (PJI). --- History of Present Illness: Pt is poor historian. The patient is a 84-year-old female with a history of right total knee arthroplasty (TKA) performed approximately two years ago. According to the patient, she subsequently underwent a washout and had an antibiotic spacer placed in the right knee by Dr. García. The exact timeline remains unclear. She was reportedly supposed to be on antibiotics postoperatively, but she is uncertain whether she continued or completed any antibiotic regimen. She reports that after all the procedures on her right knee , she was doing well. However, over the past month, she has developed progressive swelling and severe pain in the right knee after a fall, which has worsened and is now described as pain out of proportion to baseline discomfort. She denies any r ecent trauma, fever, or chills. --- Physical Examination: General: Alert and oriented 3. Right Knee: very limited knee ROM Incision from prior TKA is well healed. Moderate to significant effusion and swelling. Warm to palpation. Severe pain with any attempt at range of motion. No erythema, drainage, or open lesions. Distal neurovascular status is grossly intact. 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 García. --- Plan: Discussed with Dr García. Right knee aspiration order placed for IR to help do this procedure Advised on need for Gram stain, Aerobic/anaerobic cultures, Cell count with differential Ordered Additional labs : CBC with differential ESR CRP Patient has been admitted as an inpatient under the hospitalist service. Hospitalist team instructed to NPO midnight on 01/19/2025 in anticipation of possible surgical intervention. Will monitor culture and laboratory results closely. Dr. García is planning possible surgical washout on Saturday, pending lab findings and clinical evolution. Further treatment decisions, including revision, irrigation/debridement, or retention vs. re-implantation, will be based on results. --- Disposition: Admitted to inpatient service. Awaiting lab and culture results. Further ortho pedic intervention to be determined in coordination with Dr. Raquel once labs are resulted or clinical picture changes or as needed by hospitalist team. Plan discussed with: Patient (bedside nurse), Other (bedside nurse) Visit Coding Surgery Date of Service if different f: Jan 18, 2025 Billing Provider: IDRIS MENA Surgery Visit Codes: 30782 - INP CONSULT <55 MIN IDRIS MENA Jan 18, 2025 21:10
[2025-01-18] MEDS: ATORVASTATIN 20 MG TAB PO SCH (21:45)
[2025-01-18] MEDS: FAMOTIDINE (10MG/ML) 2ML VL IV SCH (21:45)
[2025-01-18] MEDS: METOPROLOL TARTRATE 25 MG TAB PO SCH (21:45)
[2025-01-18 23:47] VITALS: BP 127/69; PULSE 74; RESP 18; TEMP 98.4; O2SAT 94
[2025-01-19] VITALS (8 sets, daily range): BP systolic 124–146; BP diastolic 58–67; PULSE 66–103; RESP 15–18; TEMP 97.4–99; O2SAT 93–96
[2025-01-19] MEDS: HYDROcodone-ACET 5/325MG TAB PO PRN (01:28)
[2025-01-19] MEDS: LEVOTHYROXINE SODIUM 25 MCG TAB PO SCH (05:20)
[2025-01-19 07:18] LABS: Hematocrit 22.5 % (36.0-46.0); Hemoglobin 7.8 g/dL (12.2-16.2); Mean Corpuscular Hemoglobin 28.3 pg (28.0-32.0); Mean Corpuscular Volume 81.8 fL (80.0-100.0); Nucleated Red Blood Cells % 0.2 %
[2025-01-19 07:32] LABS: Alkaline Phosphatase 95 U/L (46-116); Anion Gap 9 (5-15); BUN/Creatinine Ratio 26.8 (10.0-20.0); Blood Urea Nitrogen 19 mg/dL (9-23); Calcium 9.1 mg/dL (8.7-10.4); Carbon Dioxide 22 mmol/L (20-31); Chloride 102 mmol/L (98-107); Glucose 93 mg/dL (74-106); Potassium 4.1 mmol/L (3.5-5.1); Total Protein 6.3 g/dL (5.7-8.2)
[2025-01-19 07:35] LABS: Alanine Aminotransferase 9 U/L (7-40); Albumin 3.0 g/dL (3.2-4.8); Bilirubin, Total 0.2 mg/dL (0.2-1.0); Sodium 133 mmol/L (136-145)
--- NOTE | 2025-01-19 10:14 | DVH ---
US RIGHT LOWER EXTREMITY ULTRASOU, HISTORY: EVALUATE RIGHT KNEE FOR POSSIBLE FLUID ASPIRATION TECHNICAL DATA: Transverse and longitudinal sonographic images were obtained of the right knee. COMPARISON: US RIGHT LOWER EXTREMITY ULTRASOU on DOS: 08/11/24, US RIGHT LOWER EXTREMITY ULTRASOU on D OS: 06/22/24 FINDINGS: IMPRESSION: Small amount of complex fluid in the right knee.
[2025-01-19] MEDS: ENOXAPARIN SOD 40 MG/0.4 ML SYRINGE SC SCH (10:44)
--- NOTE | 2025-01-19 12:51 | DVHPN2 ---
Progress Note Date Seen: Jan 19, 2025 Medical Necessity Reason Pt with a Central, PICC or Fol: No Subjective Patient reports: No new complaints Review of Systems: HEENT:Normal, CVS:Normal, RESPIRATORY:Normal, GI:Normal, :Normal, MSK:Normal, NEURO:Normal Objective vital signs Vital Sign Date Time Temp Pulse Resp B/P (MAP) Pulse Ox O2 Delivery O2 Flow Rate FiO2 01/19/25 12:41 98.3 66 15 146/62 (90) 95 98.3 01/19/25 08:05 Room Air* 0 21 Total Intake and Output 01/18/25 01/18/25 01/19/25 15:00 23:00 07:00 Intake Total 0 ml Balance 0 ml medications Current Medications Medications Dose Ordered Sig/Irene Route Start Time Stop Time Status Last Admin Dose Admin Atorvastatin Calcium 10 mg HS PO 01/18/25 22:00 01/18/25 21:45 10 MG Aspirin 81 mg DAILY PO 01/19/25 10:00 01/19/25 10:44 81 MG Famotidine 20 mg DAILY IV 01/18/25 22:00 01/19/25 10:44 20 MG Levothyroxine Sodium 75 mcg QAM@0600 PO 01/19/25 06:00 01/19/25 05:20 75 MCG Clonidine HCl 0.1 mg Q4HP PRN PO 01/18/25 16:00 01/18/25 17:44 0.1 MG Metoprolol Tartrate 25 mg BID PO 01/18/25 22:00 01/19/25 10:45 25 MG Acetaminophen/ Hydrocodone Bitart 1 tab Q4HP PRN PO 01/18/25 16:00 01/19/25 08:42 1 TAB Ondansetron HCl 4 mg Q4HP PRN IV 01/18/25 16:00 Docusate Sodium 100 mg BIDPRN PRN PO 01/18/25 16:00 Acetaminophen 650 mg Q6HP PRN PO 01/18/25 16:00 Nitroglycerin 0.4 mg Q5MINP PRN SL 01/18/25 17:30 Morphine Sulfate 2 mg Q30M PRN IV 01/18/25 17:30 01/18/25 20:58 2 MG Ceftriaxone Sodium 50 ml @ 100 mls/hr DAILY@2100 IV 01/19/25 21:00 Morphine Sulfate 2 mg Q4HPRN PRN IV 01/19/25 12:45 UNV Examination: GENERAL:Normal, HEENT:Normal, NECK:Normal, LUNGS:Normal, CVS:Normal, ABDOMEN:Normal, MSK:Normal, MSK:Abnormal (right knee swelling), SKIN:Normal, NEURO:Normal, :Normal laboratory and microbiology Laboratory Tests 01/19/25 06:43 Test 01/19/25 06:43 Range/Units Serum Glucose 93 74-106 mg/dL Problem List/Assessment/Plan Problem List/Assessment/Plan #1 right knee effusion/pain: drainage #2 anxiety #3 anemia #4 cad #5 htn #6 hypothyroidism #7 chronic diastolic heart failure #8 hyperlipidemia advance care planning- full code-time spent 18 mins Plan discussed with: Patient My Orders My Orders Orders - ALDO MONDRAGON MD Procedure Category Date Status Time * Cardiology Consult CONS 01/19/25 Transmitted 12:42 Morphine Sulfate PHA 01/19/25 Logged Injection 12:45 Morphine Sulfate PHA 01/19/25 Logged Injection 12:45 Alprazolam Tablet PHA 01/19/25 Verified (Xanax Tablet) 12:45 Alprazolam Tablet PHA 01/19/25 Verified (Xanax Tablet) 12:45 Basic Metabolic Panel LAB 01/20/25 Verified 06:00 Complete Blood Count LAB 01/20/25 Verified 06:00 PTPTT LAB 01/20/25 Verified 04:00 Date of Service: Jan 19, 2025 Billing Provider: ALDO MONDRAGON MD Common Visit Codes: [id number] INP/OBS CARE(HIGH) Secondary Visit Codes: [id number] CARE PLAN 30 MINUTES ALDO MONDRAGON MD Jan 19, 2025 12:51
[2025-01-19] MEDS: ALPRAZolam 0.5 MG TAB PO ONE (13:44)
[2025-01-19] MEDS: MORPHINE SULFATE INJ 2 MG/ml SYRG IV ONE (13:44)
--- NOTE | 2025-01-19 15:26 | DVHPN2 ---
Progress Note - Dictate Date Seen: Jan 18, 2025 Medical Necessity Reason Pt with a Central, PICC or Fol: No Subjective NOW WITH KNEE EFFUSION HX OF SEPTIC JOINT S/P EXPLANTATION OF RIGHT KNEE PROSTHESIS WITH SPACERS NOW WITH CONFUSION METABOLIC ENCEPHALOPATHY SEVERE OSTEOARTHRITIS RIGHT KNEE EFFUSION LEUKOCYTOSIS ANEMIA PMH ORGANIC HEART DISEASE HTN CAD WITH HX OF PTCA STENT HX OF CHF HRpEF / DIASTOLIC AFIB HYPERCOAGULABLE STATE HYPOKALEMIA SEVERE CACHEXIA HYPERCALCEMIA vital signs Vital Sign Date Time Temp Pulse Resp B/P (MAP) Pulse Ox O2 Delivery O2 Flow Rate FiO2 01/19/25 13:44 66 15 146/62 01/19/25 12:41 98.3 95 98.3 01/19/25 08:05 Room Air* 0 21 Total Intake and Output 01/18/25 01/18/25 01/19/25 14:59 22:59 06:59 Intake Total 0 ml Balance 0 ml medications Current Medications Medications Dose Ordered Sig/Irene Route Start Time Stop Time Status Last Admin Dose Admin Atorvastatin Calcium 10 mg HS PO 01/18/25 22:00 01/18/25 21:45 10 MG Aspirin 81 mg DAILY PO 01/19/25 10:00 01/19/25 10:44 81 MG Famotidine 20 mg DAILY IV 01/18/25 22:00 01/19/25 10:44 20 MG Levothyroxine Sodium 75 mcg QAM@0600 PO 01/19/25 06:00 01/19/25 05:20 75 MCG Clonidine HCl 0.1 mg Q4HP PRN PO 01/18/25 16:00 01/18/25 17:44 0.1 MG Metoprolol Tartrate 25 mg BID PO 01/18/25 22:00 01/19/25 10:45 25 MG Acetaminophen/ Hydrocodone Bitart 1 tab Q4HP PRN PO 01/18/25 16:00 01/19/25 08:42 1 TAB Ondansetron HCl 4 mg Q4HP PRN IV 01/18/25 16:00 Docusate Sodium 100 mg BIDPRN PRN PO 01/18/25 16:00 Acetaminophen 650 mg Q6HP PRN PO 01/18/25 16:00 Nitroglycerin 0.4 mg Q5MINP PRN SL 01/18/25 17:30 Morphine Sulfate 2 mg Q30M PRN IV 01/18/25 17:30 01/18/25 20:58 2 MG Ceftriaxone Sodium 50 ml @ 100 mls/hr DAILY@2100 IV 01/19/25 21:00 Morphine Sulfate 2 mg Q4HPRN PRN IV 01/19/25 12:45 Alprazolam 0.5 mg BID PRN PO 01/19/25 12:45 objective HEENT: Head is atraumatic normocephalic, eyes PERRLA, ENT oropharynx moist and clear, neck supple, no tenderness, trachea midline, no masses no JVD. Chest: Denies chest pain, no diaphoresis, no mass adenopathy, no tenderness. Cardiac: Regular rate and rhythm, S1-S2 normal, no murmurs, no rubs or gallops. Pulmonary: No shortness of breath, lungs are clear to auscultation bilaterally, no wheezing, no rales or rhonchi. Abdomen: Soft, tender, nondistended, no masses, bowel sounds positive. Genitourinary: Denies dysuria, no urinary frequency, no hematuria. Skin: Skin warm and dry to touch no rash or lesion, no ulceration. Extremities: No clubbing, no edema, no tenderness, no varicosity. Neurologic: Grossly intact, no new focal motor deficit, no numbness or tingling. laboratory and microbiology Laboratory Tests 01/19/25 06:43 Test 01/19/25 06:43 Range/Units Serum Glucose 93 74-106 mg/dL Problem List NOW WITH KNEE EFFUSION HX OF SEPTIC JOINT S/P EXPLANTATION OF RIGHT KNEE PROSTHESIS WITH SPACERS NOW WITH CONFUSION METABOLIC ENCEPHALOPATHY SEVERE OSTEOARTHRITIS RIGHT KNEE EFFUSION LEUKOCYTOSIS ANEMIA PMH ORGANIC HEART DISEASE HTN CAD WITH HX OF PTCA STENT HX OF CHF HRpEF / DIASTOLIC AFIB HYPERCOAGULABLE STATE HYPOKALEMIA SEVERE [place]HEXIA HYPERCALCEMIA Assessment/Plan ARTHROCENTESIS CXOF FLUID CONSIDER OPENT DEBRIDEMENT IF CONTINUED INFECTION Plan discussed with: Patient ANISH DIAZ MD Jan 19, 2025 15:26
[2025-01-19] MEDS ORDERED: HYDROmorphone HCL 2 MG/ML VL/or syr IV ONE (16:15)
[2025-01-19] MEDS: MORPHINE SULFATE INJ 2 MG/ml SYRG IV PRN (21:12)
[2025-01-19] MEDS: ALPRAZolam 0.5 MG TAB PO PRN (21:18)
[2025-01-20] VITALS (7 sets, daily range): BP systolic 121–172; BP diastolic 56–81; PULSE 66–82; RESP 15–18; TEMP 98.2–98.5; O2SAT 92–95
[2025-01-20] MEDS: DOCUSATE SOD 100 MG CAP PO PRN (04:44)
[2025-01-20 06:47] LABS: Hematocrit 24.3 % (36.0-46.0); Hemoglobin 8.3 g/dL (12.2-16.2); Mean Corpuscular Hemoglobin 27.7 pg (28.0-32.0); Mean Corpuscular Volume 81.8 fL (80.0-100.0); Nucleated Red Blood Cells % 0.1 %
[2025-01-20 06:58] LABS: INR 1.02 (0.9-1.15); Partial Thromboplastin Time 30.2 SEC (24.5-34.5); Prothrombin Time 10.8 sec (9.3-11.8)
[2025-01-20 07:01] LABS: Chloride 99 mmol/L (98-107); Potassium 3.7 mmol/L (3.5-5.1)
[2025-01-20 07:02] LABS: Anion Gap 8 (5-15); Calcium 9.6 mg/dL (8.7-10.4); Carbon Dioxide 25 mmol/L (20-31)
[2025-01-20 07:07] LABS: BUN/Creatinine Ratio 21.6 (10.0-20.0); Blood Urea Nitrogen 16 mg/dL (9-23); Glucose 84 mg/dL (74-106)
[2025-01-20 07:09] LABS: Sodium 132 mmol/L (136-145)
[2025-01-20] MEDS: HYDROmorphone HCL 2 MG/ML VL/or syr IV ONE ×2 (08:15→10:24)
--- NOTE | 2025-01-20 09:38 | DVH ---
US US GUIDANCE FOR NEEDLE PLACEME, HISTORY: RT KNEE ASPIRATION PROCEDURE: An informed consent was obtained. The patient was placed supine on the interventional tabl e. The small right knee joint fluid collection was localized with ultrasound and the overlying skin p repped with chlorhexidine which was allowed to dry and draped in the usual sterile fashion. Time out was performed and infiltrated with 1% Xylocaine. With US guidance, a 22 gauge spinal needle was advan maddie into the small knee joint fluid. 4 mL of joint fluid was aspirated for appropriate microbiology/ cytology/microbiology and cytology analysis. No immediate complication was identified. FINDINGS: Limited US scan of through the right knee shows a small joint fluid among a complex amoun t of inflammation surrounding the knee. IMPRESSION: Right knee arthrocentesis with 4 mL joint fluid aspirated for analysis.
--- NOTE | 2025-01-20 12:58 | DVHPN2 ---
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 NOW WITH CONFUSION METABOLIC ENCEPHALOPATHY SEVERE OSTEOARTHRITIS RIGHT KNEE EFFUSION LEUKOCYTOSIS ANEMIA PMH ORGANIC HEART DISEASE HTN CAD WITH HX OF PTCA STENT HX OF CHF HRpEF / DIASTOLIC AFIB HYPERCOAGULABLE STATE HYPOKALEMIA SEVERE CACHEXIA HYPERCALCEMIA vital signs Vital Sign Date Time Temp Pulse Resp B/P (MAP) Pulse Ox O2 Delivery O2 Flow Rate FiO2 01/20/25 11:20 66 121/72 01/20/25 09:00 98.5 15 93 98.5 01/20/25 08:10 Room Air* 0 21 Total Intake and Output 01/19/25 01/19/25 01/20/25 15:00 23:00 07:00 Intake Total 598 ml 400 ml Balance 598 ml 400 ml medications Current Medications Medications Dose Ordered Sig/Irene Route Start Time Stop Time Status Last Admin Dose Admin Atorvastatin Calcium 10 mg HS PO 01/18/25 22:00 01/19/25 21:14 10 MG Aspirin 81 mg DAILY PO 01/19/25 10:00 01/20/25 10:19 81 MG Famotidine 20 mg DAILY IV 01/18/25 22:00 01/20/25 11:04 20 MG Levothyroxine Sodium 75 mcg QAM@0600 PO 01/19/25 06:00 01/20/25 05:45 75 MCG Clonidine HCl 0.1 mg Q4HP PRN PO 01/18/25 16:00 01/20/25 05:46 0.1 MG Metoprolol Tartrate 25 mg BID PO 01/18/25 22:00 01/20/25 10:20 25 MG Acetaminophen/ Hydrocodone Bitart 1 tab Q4HP PRN PO 01/18/25 16:00 01/20/25 11:04 1 TAB Ondansetron HCl 4 mg Q4HP PRN IV 01/18/25 16:00 Docusate Sodium 100 mg BIDPRN PRN PO 01/18/25 16:00 01/20/25 04:44 100 MG Acetaminophen 650 mg Q6HP PRN PO 01/18/25 16:00 Nitroglycerin 0.4 mg Q5MINP PRN SL 01/18/25 17:30 Morphine Sulfate 2 mg Q30M PRN IV 01/18/25 17:30 01/18/25 20:58 2 MG Ceftriaxone Sodium 50 ml @ 100 mls/hr DAILY@2100 IV 01/19/25 21:00 01/19/25 21:12 100 MLS/HR Morphine Sulfate 2 mg Q4HPRN PRN IV 01/19/25 12:45 01/20/25 01:42 2 MG Alprazolam 0.5 mg BID PRN PO 01/19/25 12:45 01/19/25 21:18 0.5 MG objective HEENT: Head is atraumatic normocephalic, eyes PERRLA, ENT oropharynx moist and clear, neck supple, no tenderness, trachea midline, no masses no JVD. Chest: Denies chest pain, no diaphoresis, no mass adenopathy, no tenderness. Cardiac: Regular rate and rhythm, S1-S2 normal, no murmurs, no rubs or gallops. Pulmonary: No shortness of breath, lungs are clear to auscultation bilaterally, no wheezing, no rales or rhonchi. Abdomen: Soft, tender, nondistended, no masses, bowel sounds positive. Genitourinary: Denies dysuria, no urinary frequency, no hematuria. Skin: Skin warm and dry to touch no rash or lesion, no ulceration. Extremities: No clubbing, no edema, no tenderness, no varicosity. Neurologic: Grossly intact, no new focal motor deficit, no numbness or tingling. 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
--- NOTE | 2025-01-20 13:28 | DVHPN2 ---
Progress Note Date Seen: Jan 20, 2025 Medical Necessity Reason Pt with a Central, PICC or Fol: No Subjective Patient reports: No new complaints Review of Systems: HEENT:Normal, CVS:Normal, RESPIRATORY:Normal, GI:Normal, :Normal, MSK:Normal, NEURO:Normal Objective vital signs Vital Sign Date Time Temp Pulse Resp B/P (MAP) Pulse Ox O2 Delivery O2 Flow Rate FiO2 01/20/25 11:20 66 121/72 01/20/25 09:00 98.5 15 93 98.5 01/20/25 08:10 Room Air* 0 21 Total Intake and Output 01/19/25 01/19/25 01/20/25 15:00 23:00 07:00 Intake Total 598 ml 400 ml Balance 598 ml 400 ml medications Current Medications Medications Dose Ordered Sig/Irene Route Start Time Stop Time Status Last Admin Dose Admin Atorvastatin Calcium 10 mg HS PO 01/18/25 22:00 01/19/25 21:14 10 MG Aspirin 81 mg DAILY PO 01/19/25 10:00 01/20/25 10:19 81 MG Famotidine 20 mg DAILY IV 01/18/25 22:00 01/20/25 11:04 20 MG Levothyroxine Sodium 75 mcg QAM@0600 PO 01/19/25 06:00 01/20/25 05:45 75 MCG Clonidine HCl 0.1 mg Q4HP PRN PO 01/18/25 16:00 01/20/25 05:46 0.1 MG Metoprolol Tartrate 25 mg BID PO 01/18/25 22:00 01/20/25 10:20 25 MG Acetaminophen/ Hydrocodone Bitart 1 tab Q4HP PRN PO 01/18/25 16:00 01/20/25 11:04 1 TAB Ondansetron HCl 4 mg Q4HP PRN IV 01/18/25 16:00 Docusate Sodium 100 mg BIDPRN PRN PO 01/18/25 16:00 01/20/25 04:44 100 MG Acetaminophen 650 mg Q6HP PRN PO 01/18/25 16:00 Nitroglycerin 0.4 mg Q5MINP PRN SL 01/18/25 17:30 Morphine Sulfate 2 mg Q30M PRN IV 01/18/25 17:30 01/18/25 20:58 2 MG Ceftriaxone Sodium 50 ml @ 100 mls/hr DAILY@2100 IV 01/19/25 21:00 01/19/25 21:12 100 MLS/HR Morphine Sulfate 2 mg Q4HPRN PRN IV 01/19/25 12:45 01/20/25 01:42 2 MG Alprazolam 0.5 mg BID PRN PO 01/19/25 12:45 01/19/25 21:18 0.5 MG Examination: GENERAL:Normal, HEENT:Normal, NECK:Normal, LUNGS:Normal, CVS:Normal, ABDOMEN:Normal, MSK:Normal, MSK:Abnormal (right knee swelling), SKIN:Normal, NEURO:Normal, :Normal laboratory and microbiology Laboratory Tests 01/20/25 04:44 Test 01/20/25 04:44 Range/Units Serum Glucose 84 74-106 mg/dL Problem List/Assessment/Plan Problem List/Assessment/Plan #1 right knee effusion/pain: drainage s/p #2 anxiety #3 anemia #4 cad #5 htn #6 hypothyroidism #7 chronic diastolic heart failure #8 hyperlipidemia advance care planning- full code-time spent 18 mins Plan discussed with: Patient My Orders My Orders Orders - ALDO MONDRAGON MD Procedure Category Date Status Time Us Guidance For US 01/20/25 Resulted Needle Placeme 07:50 Famotidine Tablet PHA 01/21/25 Verified (Pepcid Tablet) 10:00 Date of Service: Jan 20, 2025 Billing Provider: ALDO MONDRAGON MD Common Visit Codes: [id number] INP/OBS CARE(HIGH) ALDO MONDRAGON MD Jan 20, 2025 13:28
--- NOTE | 2025-01-20 20:19 | DVHPN2 ---
Progress Note Progress Note Subjective: Ms. Dani Sanches is an inpatient evaluated today for ongoing right knee pain. She has a known history of a right knee antibiotic spacer, placed previously as part of staged management for a prior periprosthetic joint infection. She was initially assessed in the emergency room for worsening knee pain. In terventional Radiology was consulted for joint aspiration, which was completed today. Preliminary aspiration results show WBC count ~10,000 with PMNs of 88%. The patient reports continued pain, which is currently being managed by the hospitalist team with appropriate analgesics. No fever or chills were reported. --- Objective: General: Alert, oriented, no acute distress right Knee Exam: Moderate tenderness to palpation Limited range of motion, likely due to presence of antibiotic spacer No erythema, drainage, or signs of acute cellulitis No fluctuance or open wounds noted Neurovascular: Distally intact IR Aspiration: Completed today WBC ~10,000 PMNs 88% Awaiting final culture and sensitivity results --- Assessment: 1. right Knee Pain status post antibiotic spacer placement 2. Possible persistent or recurrent joint infection pending cultures 3. Reduced range of motion likely mechanical due to spacer 4. Not a surgical candidate at this time --- Plan: LABS AND CASE DISCUSSED WITH DR. LENI THOMAS NON OP AND CLOSE LAB/CULTURE FOLLOWUP AT THIS TIME Await final culture results from today's aspiration Continue pain management under the direction of the hospitalist DVT prophylaxis to be continued and monitored by hospitalist team per protocol Hospitalist to manage any comorbid conditions and adjust medications as needed Orthopedic team will reassess when cultures return, or earlier if clinical status changes REMOVE NPO ORDERS (NURSE BEDSIDE AWARE) --- All questions answered. Patient agrees with the plan. Will continue to monitor in collaboration with hospital medicine. Contact Orthopedic once culture results are final or have any changes in patient condition Plan discussed with: Patient, Other (bedside nurse) Visit Coding Surgery Date of Service if different f: Jan 20, 2025 Billing Provider: IDRIS MENA Surgery Visit Codes: [id number] INP/OBS CARE(MOD) IDRIS MENA Jan 20, 2025 20:19
[2025-01-21] VITALS (7 sets, daily range): BP systolic 120–169; BP diastolic 56–92; PULSE 60–74; RESP 18–20; TEMP 97.4–98.9; O2SAT 94–95
--- NOTE | 2025-01-21 08:33 | ECG ---
[facility] Test Date: 2025-01-21 Test Time: 08:31:57 Pat Name: CAROL TARANGO Department: Room: [facility] Gender: F [employer]: JETT : 1940 Requested By: REGINO FRAUSTO Order Number: [id number] MD: Daryl Raymundo Measurements Intervals [place] Rate: 74 P: 35 ME: 163 QRS: 32 QRSD: 88 T: 72 QT: 364 QTc: 404 Interpretive Statements Sinus rhythm Low voltage, extremity leads Left ventricular hypertrophy ST elevation, consider anterior injury Electronically Signed On 01-27-2025 13:50:23 PDT by Daryl Raymundo Please click the below link to view image of tracing.
[2025-01-21] MEDS: FAMOTIDINE 20 MG TAB PO SCH (10:02)
--- NOTE | 2025-01-21 10:12 | DVHPN2 ---
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 NOW WITH CONFUSION METABOLIC ENCEPHALOPATHY SEVERE OSTEOARTHRITIS RIGHT KNEE EFFUSION LEUKOCYTOSIS ANEMIA PMH ORGANIC HEART DISEASE HTN CAD WITH HX OF PTCA STENT HX OF CHF HRpEF / DIASTOLIC AFIB HYPERCOAGULABLE STATE HYPOKALEMIA SEVERE CACHEXIA HYPERCALCEMIA vital signs Vital Sign Date Time Temp Pulse Resp B/P (MAP) Pulse Ox O2 Delivery O2 Flow Rate FiO2 01/21/25 10:05 64 20 154/71 01/21/25 08:35 98.9 95 98.9 01/20/25 20:00 Room Air* 0 21 Total Intake and Output 01/20/25 01/20/25 01/21/25 15:00 23:00 07:00 Intake Total 668 ml 500 ml Balance 668 ml 500 ml medications Current Medications Medications Dose Ordered Sig/Irene Route Start Time Stop Time Status Last Admin Dose Admin Atorvastatin Calcium 10 mg HS PO 01/18/25 22:00 01/20/25 21:39 10 MG Aspirin 81 mg DAILY PO 01/19/25 10:00 01/21/25 10:02 81 MG Levothyroxine Sodium 75 mcg QAM@0600 PO 01/19/25 06:00 01/21/25 05:37 75 MCG Clonidine HCl 0.1 mg Q4HP PRN PO 01/18/25 16:00 01/21/25 03:47 0.1 MG Metoprolol Tartrate 25 mg BID PO 01/18/25 22:00 01/21/25 10:03 25 MG Acetaminophen/ Hydrocodone Bitart 1 tab Q4HP PRN PO 01/18/25 16:00 01/21/25 05:35 1 TAB Ondansetron HCl 4 mg Q4HP PRN IV 01/18/25 16:00 Docusate Sodium 100 mg BIDPRN PRN PO 01/18/25 16:00 01/20/25 04:44 100 MG Acetaminophen 650 mg Q6HP PRN PO 01/18/25 16:00 Nitroglycerin 0.4 mg Q5MINP PRN SL 01/18/25 17:30 Morphine Sulfate 2 mg Q30M PRN IV 01/18/25 17:30 01/18/25 20:58 2 MG Ceftriaxone Sodium 50 ml @ 100 mls/hr DAILY@2100 IV 01/19/25 21:00 01/20/25 20:46 100 MLS/HR Morphine Sulfate 2 mg Q4HPRN PRN IV 01/19/25 12:45 01/21/25 10:05 2 MG Alprazolam 0.5 mg BID PRN PO 01/19/25 12:45 01/20/25 22:50 0.5 MG Famotidine 10 mg DAILY PO 01/21/25 10:00 01/21/25 10:02 10 MG objective HEENT: Head is atraumatic normocephalic, eyes PERRLA, ENT oropharynx moist and clear, neck supple, no tenderness, trachea midline, no masses no JVD. Chest: Denies chest pain, no diaphoresis, no mass adenopathy, no tenderness. Cardiac: Regular rate and rhythm, S1-S2 normal, no murmurs, no rubs or gallops. Pulmonary: No shortness of breath, lungs are clear to auscultation bilaterally, no wheezing, no rales or rhonchi. Abdomen: Soft, tender, nondistended, no masses, bowel sounds positive. Genitourinary: Denies dysuria, no urinary frequency, no hematuria. Skin: Skin warm and dry to touch no rash or lesion, no ulceration. Extremities: No clubbing, no edema, no tenderness, no varicosity. Neurologic: Grossly intact, no new focal motor deficit, no numbness or tingling. 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
--- NOTE | 2025-01-21 11:05 | DVHPN2 ---
Progress Note Date Seen: Jan 21, 2025 Medical Necessity Reason Pt with a Central, PICC or Fol: No Subjective Patient reports: No new complaints Review of Systems: HEENT:Normal, CVS:Normal, RESPIRATORY:Normal, GI:Normal, :Normal, MSK:Normal, NEURO:Normal Objective vital signs Vital Sign Date Time Temp Pulse Resp B/P (MAP) Pulse Ox O2 Delivery O2 Flow Rate FiO2 01/21/25 10:05 64 20 154/71 01/21/25 08:35 98.9 95 98.9 01/20/25 20:00 Room Air* 0 21 Total Intake and Output 01/20/25 01/20/25 01/21/25 15:00 23:00 07:00 Intake Total 668 ml 500 ml Balance 668 ml 500 ml medications Current Medications Medications Dose Ordered Sig/Irene Route Start Time Stop Time Status Last Admin Dose Admin Atorvastatin Calcium 10 mg HS PO 01/18/25 22:00 01/20/25 21:39 10 MG Aspirin 81 mg DAILY PO 01/19/25 10:00 01/21/25 10:02 81 MG Levothyroxine Sodium 75 mcg QAM@0600 PO 01/19/25 06:00 01/21/25 05:37 75 MCG Clonidine HCl 0.1 mg Q4HP PRN PO 01/18/25 16:00 01/21/25 03:47 0.1 MG Metoprolol Tartrate 25 mg BID PO 01/18/25 22:00 01/21/25 10:03 25 MG Acetaminophen/ Hydrocodone Bitart 1 tab Q4HP PRN PO 01/18/25 16:00 01/21/25 05:35 1 TAB Ondansetron HCl 4 mg Q4HP PRN IV 01/18/25 16:00 Docusate Sodium 100 mg BIDPRN PRN PO 01/18/25 16:00 01/20/25 04:44 100 MG Acetaminophen 650 mg Q6HP PRN PO 01/18/25 16:00 Nitroglycerin 0.4 mg Q5MINP PRN SL 01/18/25 17:30 Morphine Sulfate 2 mg Q30M PRN IV 01/18/25 17:30 01/18/25 20:58 2 MG Ceftriaxone Sodium 50 ml @ 100 mls/hr DAILY@2100 IV 01/19/25 21:00 01/20/25 20:46 100 MLS/HR Morphine Sulfate 2 mg Q4HPRN PRN IV 01/19/25 12:45 01/21/25 10:05 2 MG Alprazolam 0.5 mg BID PRN PO 01/19/25 12:45 01/20/25 22:50 0.5 MG Famotidine 10 mg DAILY PO 01/21/25 10:00 01/21/25 10:02 10 MG Examination: GENERAL:Normal, HEENT:Normal, NECK:Normal, LUNGS:Normal, CVS:Normal, ABDOMEN:Normal, MSK:Normal, MSK:Abnormal (right knee swelling), SKIN:Normal, NEURO:Normal, :Normal laboratory and microbiology Laboratory Tests 01/20/25 04:44 Test 01/20/25 04:44 Range/Units Serum Glucose 84 74-106 mg/dL Microbiology Date/Time Source Procedure Growth Status 01/20/25 09:50 Knee Fluid Gram Stain Pending Resulted 01/20/25 09:50 Knee Fluid Body Fluid Culture - Preliminary Resulted Problem List/Assessment/Plan Problem List/Assessment/Plan #1 right knee effusion/pain ? infected: surg in am, iv rocephin #2 anxiety #3 anemia #4 cad #5 htn #6 hypothyroidism #7 chronic diastolic heart failure #8 hyperlipidemia advance care planning- full code-time spent 18 mins Plan discussed with: Patient My Orders My Orders Orders - ALDO MONDRAGON MD Procedure Category Date Status Time Famotidine Tablet PHA 01/21/25 In Process (Pepcid Tablet) 10:00 Date of Service: Jan 21, 2025 Billing Provider: ALDO MONDRAGON MD Common Visit Codes: [id number] INP/OBS CARE(HIGH) ALDO MONDRAGON MD Jan 21, 2025 11:05
[2025-01-21] MEDS: LISINOPRIL 20 MG TAB PO ONE (15:33)
[2025-01-22] VITALS (8 sets, daily range): BP systolic 124–168; BP diastolic 58–68; PULSE 63–74; RESP 16–19; TEMP 97.7–99.4; O2SAT 68–97
[2025-01-22] MEDS: LISINOPRIL 20 MG TAB PO SCH (09:23)
--- NOTE | 2025-01-22 10:02 | DVHPN2 ---
Progress Note Date Seen: Jan 22, 2025 Medical Necessity Reason Pt with a Central, PICC or Fol: No Subjective Patient reports: No new complaints Objective vital signs Vital Sign Date Time Temp Pulse Resp B/P (MAP) Pulse Ox O2 Delivery O2 Flow Rate FiO2 01/22/25 09:24 75 178/83 01/22/25 08:57 98.2 19 95 98.2 01/21/25 20:00 Room Air* 0 21 Total Intake and Output 01/21/25 01/21/25 01/22/25 15:00 23:00 07:00 Intake Total 600 ml 500 ml Balance 600 ml 500 ml medications Current Medications Medications Dose Ordered Sig/Irene Route Start Time Stop Time Status Last Admin Dose Admin Atorvastatin Calcium 10 mg HS PO 01/18/25 22:00 01/21/25 21:28 10 MG Aspirin 81 mg DAILY PO 01/19/25 10:00 01/22/25 09:23 81 MG Levothyroxine Sodium 75 mcg QAM@0600 PO 01/19/25 06:00 01/21/25 05:37 75 MCG Clonidine HCl 0.1 mg Q4HP PRN PO 01/18/25 16:00 01/21/25 12:52 0.1 MG Metoprolol Tartrate 25 mg BID PO 01/18/25 22:00 01/22/25 09:24 25 MG Acetaminophen/ Hydrocodone Bitart 1 tab Q4HP PRN PO 01/18/25 16:00 01/22/25 00:21 1 TAB Ondansetron HCl 4 mg Q4HP PRN IV 01/18/25 16:00 Docusate Sodium 100 mg BIDPRN PRN PO 01/18/25 16:00 01/20/25 04:44 100 MG Acetaminophen 650 mg Q6HP PRN PO 01/18/25 16:00 Nitroglycerin 0.4 mg Q5MINP PRN SL 01/18/25 17:30 Morphine Sulfate 2 mg Q30M PRN IV 01/18/25 17:30 01/18/25 20:58 2 MG Ceftriaxone Sodium 50 ml @ 100 mls/hr DAILY@2100 IV 01/19/25 21:00 01/21/25 20:30 100 MLS/HR Morphine Sulfate 2 mg Q4HPRN PRN IV 01/19/25 12:45 01/22/25 07:57 2 MG Alprazolam 0.5 mg BID PRN PO 01/19/25 12:45 01/21/25 22:01 0.5 MG Famotidine 10 mg DAILY PO 01/21/25 10:00 01/22/25 09:23 10 MG Lisinopril 20 mg DAILY PO 01/22/25 10:00 01/22/25 09:23 20 MG Examination: GENERAL:Normal, MSK:Abnormal laboratory and microbiology Laboratory Tests 01/20/25 04:44 Test 01/20/25 04:44 Range/Units Serum Glucose 84 74-106 mg/dL Microbiology Date/Time Source Procedure Growth Status 01/20/25 09:50 Knee Fluid Gram Stain Pending Resulted 01/20/25 09:50 Knee Fluid Body Fluid Culture - Preliminary Resulted Problem List/Assessment/Plan Problem List/Assessment/Plan 84 yo F with right knee infection 1. Waiting for final cultures -- plan for I&D based on this so we know which antibotics to place into the antibotic beads at time of surgery 2. NWB RLE 3. pain control 4. on iv abx Plan discussed with: Patient My Orders My Orders Orders - HERBERT FARRAR MD Procedure Category Date Status Time Cardiac DIET 01/22/25 Transmitted Diet-2gna,Lofat,Lochol Lunch HERBERT FARRAR MD Jan 22, 2025 10:02
--- NOTE | 2025-01-22 13:55 | DVHPN2 ---
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 NOW WITH CONFUSION METABOLIC ENCEPHALOPATHY SEVERE OSTEOARTHRITIS RIGHT KNEE EFFUSION LEUKOCYTOSIS ANEMIA PMH ORGANIC HEART DISEASE HTN CAD WITH HX OF PTCA STENT HX OF CHF HRpEF / DIASTOLIC AFIB HYPERCOAGULABLE STATE HYPOKALEMIA SEVERE CACHEXIA HYPERCALCEMIA vital signs Vital Sign Date Time Temp Pulse Resp B/P (MAP) Pulse Ox O2 Delivery O2 Flow Rate FiO2 01/22/25 13:21 98.4 68 19 136/59 (84) 68 98.4 01/22/25 08:00 Room Air* 0 21 Total Intake and Output 01/21/25 01/21/25 01/22/25 15:00 23:00 07:00 Intake Total 600 ml 500 ml Balance 600 ml 500 ml medications Current Medications Medications Dose Ordered Sig/Irene Route Start Time Stop Time Status Last Admin Dose Admin Atorvastatin Calcium 10 mg HS PO 01/18/25 22:00 01/21/25 21:28 10 MG Aspirin 81 mg DAILY PO 01/19/25 10:00 01/22/25 09:23 81 MG Levothyroxine Sodium 75 mcg QAM@0600 PO 01/19/25 06:00 01/21/25 05:37 75 MCG Clonidine HCl 0.1 mg Q4HP PRN PO 01/18/25 16:00 01/21/25 12:52 0.1 MG Metoprolol Tartrate 25 mg BID PO 01/18/25 22:00 01/22/25 09:24 25 MG Acetaminophen/ Hydrocodone Bitart 1 tab Q4HP PRN PO 01/18/25 16:00 01/22/25 11:11 1 TAB Ondansetron HCl 4 mg Q4HP PRN IV 01/18/25 16:00 Docusate Sodium 100 mg BIDPRN PRN PO 01/18/25 16:00 01/20/25 04:44 100 MG Acetaminophen 650 mg Q6HP PRN PO 01/18/25 16:00 Nitroglycerin 0.4 mg Q5MINP PRN SL 01/18/25 17:30 Morphine Sulfate 2 mg Q30M PRN IV 01/18/25 17:30 01/18/25 20:58 2 MG Ceftriaxone Sodium 50 ml @ 100 mls/hr DAILY@2100 IV 01/19/25 21:00 01/21/25 20:30 100 MLS/HR Morphine Sulfate 2 mg Q4HPRN PRN IV 01/19/25 12:45 01/22/25 07:57 2 MG Alprazolam 0.5 mg BID PRN PO 01/19/25 12:45 01/22/25 11:12 0.5 MG Famotidine 10 mg DAILY PO 01/21/25 10:00 01/22/25 09:23 10 MG Lisinopril 20 mg DAILY PO 01/22/25 10:00 01/22/25 09:23 20 MG objective HEENT: Head is atraumatic normocephalic, eyes PERRLA, ENT oropharynx moist and clear, neck supple, no tenderness, trachea midline, no masses no JVD. Chest: Denies chest pain, no diaphoresis, no mass adenopathy, no tenderness. Cardiac: Regular rate and rhythm, S1-S2 normal, no murmurs, no rubs or gallops. Pulmonary: No shortness of breath, lungs are clear to auscultation bilaterally, no wheezing, no rales or rhonchi. Abdomen: Soft, tender, nondistended, no masses, bowel sounds positive. Genitourinary: Denies dysuria, no urinary frequency, no hematuria. Skin: Skin warm and dry to touch no rash or lesion, no ulceration. Extremities: No clubbing, no edema, no tenderness, no varicosity. Neurologic: Grossly intact, no new focal motor deficit, no numbness or tingling. 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
[2025-01-23] VITALS (7 sets, daily range): BP systolic 128–174; BP diastolic 43–66; PULSE 53–71; RESP 14–18; TEMP 97.6–98.6; O2SAT 92–99
--- NOTE | 2025-01-23 16:04 | DVHPN2 ---
Reviewed: Care Plan, H&P, Labs, Medications, Previous Orders Changes from previous H/P or p: No Changes General: Per HPI Eyes: No Pain, No Vision change, No Conjunctivae inflammation, No Eyelid inflammation, No Other, No Redness ENT: No Ear pain, No Ear discharge, No Nose pain, No Nose discharge, No Nose congestion, No Mouth pain, No Mouth swelling, No Throat pain, No Throat swelling, No Other Cardiovascular: No Chest Pain, No Palpitations, No Orthopnea, No Paroxysmal Noc. Dyspnea, No Edema, No Lt Headedness, No Other Respiratory: No Cough, No Dry, No Shortness of breath, No SOB with excertion, No Wheezing, No Hemoptysis, No Pleuritic Pain, No Sputum, No Other Gastrointestinal: No Nausea, No Vomiting, No Abdominal Pain, No Diarrhea, No Constipation, No Melena, No Hematochezia, No Other Genitourinary: No Dysuria, No Frequency, No Incontinence, No Hematuria, No Retention, No Other Musculoskeletal: other (Joint pain, right knee); No neck pain, No shoulder pain, No arm pain, No back pain, No hand pain, No leg pain, No foot pain Skin: No Rash, No Lesions, No Jaundice, No Bruising, No Other Objective Vitals Vital Signs Date Time Temp Pulse Resp B/P (MAP) Pulse Ox O2 Delivery O2 Flow Rate FiO2 01/23/25 13:00 98.4 53 18 128/43 (71) 99 98.4 01/22/25 20:00 Room Air* 0 21 Intake/Output Intake and Output 01/23/25 07:00 Intake Total 1850 ml Balance 1850 ml Intake Oral 1800 ml IV Total 50 ml # Voids 7 General Appearance: Alert, Oriented X3, Cooperative Cardiovascular: Regular rate, Normal S1, Normal S2 Abdomen: Normal bowel sounds, Soft Neuro: Normal speech Medications Current Medications Medications Dose Ordered Sig/Irene Route Start Time Stop Time Status Last Admin Dose Admin Atorvastatin Calcium 10 mg HS PO 01/18/25 22:00 01/22/25 20:59 10 MG Aspirin 81 mg DAILY PO 01/19/25 10:00 01/23/25 10:36 81 MG Levothyroxine Sodium 75 mcg QAM@0600 PO 01/19/25 06:00 01/23/25 05:01 75 MCG Clonidine HCl 0.1 mg Q4HP PRN PO 01/18/25 16:00 01/23/25 01:25 0.1 MG Metoprolol Tartrate 25 mg BID PO 01/18/25 22:00 01/23/25 10:36 25 MG Acetaminophen/ Hydrocodone Bitart 1 tab Q4HP PRN PO 01/18/25 16:00 01/23/25 10:35 1 TAB Ondansetron HCl 4 mg Q4HP PRN IV 01/18/25 16:00 Docusate Sodium 100 mg BIDPRN PRN PO 01/18/25 16:00 01/22/25 14:04 100 MG Acetaminophen 650 mg Q6HP PRN PO 01/18/25 16:00 Nitroglycerin 0.4 mg Q5MINP PRN SL 01/18/25 17:30 Morphine Sulfate 2 mg Q30M PRN IV 01/18/25 17:30 01/23/25 07:40 2 MG Ceftriaxone Sodium 50 ml @ 100 mls/hr DAILY@2100 IV 01/19/25 21:00 01/22/25 20:59 100 MLS/HR Morphine Sulfate 2 mg Q4HPRN PRN IV 01/19/25 12:45 01/23/25 01:22 2 MG Alprazolam 0.5 mg BID PRN PO 01/19/25 12:45 01/23/25 10:34 0.5 MG Famotidine 10 mg DAILY PO 01/21/25 10:00 01/23/25 10:35 10 MG Lisinopril 20 mg DAILY PO 01/22/25 10:00 01/23/25 10:35 20 MG Laboratory Results Laboratory Tests 01/20/25 04:44 Urinalysis Test 01/18/25 19:05 Urine Color Light-yellow (Yellow) Urine Clarity Clear (Clear) Urine pH 6.0 (5.0-9.0) Urine Specific [place] 1.025 (1.001-1.035) Urine Protein 1+ (Negative) H Urine Ketones Negative (Negative) Urine Blood Negative /uL (Negative) Urine Nitrite Negative (Negative) Urine Bilirubin Negative (Negative) Urine Urobilinogen Normal mg/dL (Negative) Urine Leukocyte Esterase Negative /uL (Negative) Urine RBC <1 /hpf (0 - 4) Urine Microscopic WBC < 1 /HPF (0-5) Urine Squamous Epithelial Cells Few /hpf (<5) Urine Bacteria None seen /hpf (None Seen) Urine Yeast (Budding) Occasional /hpf (None Urine Glucose Normal mg/dL (Normal) Microbiology Microbiology Date/Time Source Procedure Growth Status 01/20/25 09:50 Knee Fluid Gram Stain - Final Complete 01/20/25 09:50 Body Fluid Culture - Final Pseudomonas aeruginosa Complete Labs and/or images reviewed: Labs reviewed by me, Image(s) reviewed by me Assessment/Plan Assessment/Plan #1 right knee effusion/pain ? infected: surg in am, iv rocephin #2 anxiety #3 anemia #4 cad #5 htn #6 hypothyroidism #7 chronic diastolic heart failure #8 hyperlipidemia 01/23/2025 Ortho plans for I&D awaiting final culture and sensitivity advance care planning- full code-time spent 18 mins Plan discussed with: Patient My Orders Orders - KRISSY RIOS DO Procedure Category Date Status Time * Family Medicine Physician Assistant CONS 01/23/25 Transmitted Consult 14:30 Date of Service: Jan 23, 2025 Billing Provider: KRISSY RIOS DO Common Visit Codes: [id number] INP/OBS CARE(HIGH) KRISSY RIOS DO Jan 23, 2025 16:04
[2025-01-24] VITALS (8 sets, daily range): BP systolic 136–158; BP diastolic 51–75; PULSE 62–75; RESP 14–18; TEMP 97.5–99.2; O2SAT 93–96
--- NOTE | 2025-01-24 09:09 | DVHPN2 ---
Reviewed: Care Plan, H&P, Labs, Medications, Previous Orders Changes from previous H/P or p: No Changes General: Per HPI Eyes: No Pain, No Vision change, No Conjunctivae inflammation, No Eyelid inflammation, No Other, No Redness ENT: No Ear pain, No Ear discharge, No Nose pain, No Nose discharge, No Nose congestion, No Mouth pain, No Mouth swelling, No Throat pain, No Throat swelling, No Other Cardiovascular: No Chest Pain, No Palpitations, No Orthopnea, No Paroxysmal Noc. Dyspnea, No Edema, No Lt Headedness, No Other Respiratory: No Cough, No Dry, No Shortness of breath, No SOB with excertion, No Wheezing, No Hemoptysis, No Pleuritic Pain, No Sputum, No Other Gastrointestinal: No Nausea, No Vomiting, No Abdominal Pain, No Diarrhea, No Constipation, No Melena, No Hematochezia, No Other Genitourinary: No Dysuria, No Frequency, No Incontinence, No Hematuria, No Retention, No Other Musculoskeletal: other (Joint pain, right knee); No neck pain, No shoulder pain, No arm pain, No back pain, No hand pain, No leg pain, No foot pain Skin: No Rash, No Lesions, No Jaundice, No Bruising, No Other Objective Vitals Vital Signs Date Time Temp Pulse Resp B/P (MAP) Pulse Ox O2 Delivery O2 Flow Rate FiO2 01/24/25 08:59 99.2 74 18 136/51 (79) 94 99.2 01/24/25 07:50 Room Air* 0 21 Intake/Output Intake and Output 01/24/25 07:00 Intake Total 300 ml Balance 300 ml Intake Oral 250 ml IV Total 50 ml # Voids 5 # Bowel Movements 5 General Appearance: Alert, Oriented X3, Cooperative Cardiovascular: Regular rate, Normal S1, Normal S2 Abdomen: Normal bowel sounds, Soft Neuro: Normal speech Medications Current Medications Medications Dose Ordered Sig/Irene Route Start Time Stop Time Status Last Admin Dose Admin Atorvastatin Calcium 10 mg HS PO 01/18/25 22:00 01/23/25 21:41 10 MG Aspirin 81 mg DAILY PO 01/19/25 10:00 01/23/25 10:36 81 MG Levothyroxine Sodium 75 mcg QAM@0600 PO 01/19/25 06:00 01/24/25 05:10 75 MCG Clonidine HCl 0.1 mg Q4HP PRN PO 01/18/25 16:00 01/23/25 01:25 0.1 MG Metoprolol Tartrate 25 mg BID PO 01/18/25 22:00 01/23/25 21:45 25 MG Acetaminophen/ Hydrocodone Bitart 1 tab Q4HP PRN PO 01/18/25 16:00 01/24/25 07:36 1 TAB Ondansetron HCl 4 mg Q4HP PRN IV 01/18/25 16:00 Docusate Sodium 100 mg BIDPRN PRN PO 01/18/25 16:00 01/22/25 14:04 100 MG Acetaminophen 650 mg Q6HP PRN PO 01/18/25 16:00 Nitroglycerin 0.4 mg Q5MINP PRN SL 01/18/25 17:30 Morphine Sulfate 2 mg Q30M PRN IV 01/18/25 17:30 01/18/25 20:58 2 MG Ceftriaxone Sodium 50 ml @ 100 mls/hr DAILY@2100 IV 01/19/25 21:00 01/23/25 21:00 100 MLS/HR Morphine Sulfate 2 mg Q4HPRN PRN IV 01/19/25 12:45 01/23/25 07:40 2 MG Alprazolam 0.5 mg BID PRN PO 01/19/25 12:45 01/24/25 07:37 0.5 MG Famotidine 10 mg DAILY PO 01/21/25 10:00 01/23/25 10:35 10 MG Lisinopril 20 mg DAILY PO 01/22/25 10:00 01/23/25 10:35 20 MG Laboratory Results Laboratory Tests 01/20/25 04:44 Urinalysis Test 01/18/25 19:05 Urine Color Light-yellow (Yellow) Urine Clarity Clear (Clear) Urine pH 6.0 (5.0-9.0) Urine Specific [place] 1.025 (1.001-1.035) Urine Protein 1+ (Negative) H Urine Ketones Negative (Negative) Urine Blood Negative /uL (Negative) Urine Nitrite Negative (Negative) Urine Bilirubin Negative (Negative) Urine Urobilinogen Normal mg/dL (Negative) Urine Leukocyte Esterase Negative /uL (Negative) Urine RBC <1 /hpf (0 - 4) Urine Microscopic WBC < 1 /HPF (0-5) Urine Squamous Epithelial Cells Few /hpf (<5) Urine Bacteria None seen /hpf (None Seen) Urine Yeast (Budding) Occasional /hpf (None Urine Glucose Normal mg/dL (Normal) Microbiology Microbiology Date/Time Source Procedure Growth Status 01/20/25 09:50 Knee Fluid Gram Stain - Final Complete 01/20/25 09:50 Body Fluid Culture - Final Pseudomonas aeruginosa Complete Assessment/Plan Assessment/Plan #1 right knee effusion/pain ? infected: surg in am, iv rocephin #2 anxiety #3 anemia #4 cad #5 htn #6 hypothyroidism #7 chronic diastolic heart failure #8 hyperlipidemia 01/23/2025 Ortho plans for I&D awaiting final culture and sensitivity aspiration culture grew P, aeruginosa ortho to to I&D this week pain is controlled advance care planning- full code-time spent 18 mins Plan discussed with: Patient My Orders Orders - KRISSY RIOS DO Procedure Category Date Status Time * Eyelet [place] CONS 01/23/25 Transmitted Consult 14:30 Date of Service: Jan 24, 2025 Billing Provider: KRISSY RIOS DO Common Visit Codes: [id number] INP/OBS CARE(HIGH) KRISSY RIOS DO Jan 24, 2025 09:09
--- NOTE | 2025-01-24 16:55 | MEDREC ---
[facility] ASP Intervention Section I [facility] ASP Intervention: Review courses of therapy (PLEASE CONSIDER REVIEWING COURSE OF THERAPY BASED ON CULTURE RESULTS ) SALENA WILLIAMSON PHARMACIST Jan 24, 2025 16:55
[2025-01-25] VITALS (10 sets, daily range): BP systolic 117–162; BP diastolic 46–73; PULSE 63–70; RESP 16–19; TEMP 97.9–98.7; O2SAT 94–100
--- NOTE | 2025-01-25 08:06 | DVHOP2 ---
Operative Report - 2 Report Details Date: 01/25/25 Preop Diagnosis: Right knee infection - hx of antibiotic spacer Postop Diagnosis: Right knee infection - hx of antibiotic spacer Surgeon: Garfield García MD [place] Supervisor: Amos THURSTON Anesthesiologist: Kary ESPINO Anesthesia: General Consent: The patient was informed of the risks and benefits of the procedure. These include but are not limited to complications of anesthesia, postoperative infection, incomplete relief of symptoms, recurrence of symptoms, damage to blood vessels, nerves and tendons, deep venous thrombosis, pulmonary embolism and possible need for repeat surgery in the future. Patient understands the nature of her injury. She understands she may need an amputation in future if this doesnt clear. I do reccommend lifelong suppressive antibiotics postop. Estimated Blood Loss: 50 cc Indications for Surgery: Risks benefits opt Name of Procedure Performed 1. Right knee irrigation and debridement, placement of antibiotic beads, placement of wound vac Procedure Details Procedure Details: The patient was indicated for Right total knee irrigation and debridement. Appropriate consent was obtained and verified and the patient was transferred to the operating room theatre. Appropriate anesthetic, antibioitic prophylaxis and IV access and fluid monitoring devices were given and placed. An extremity time out was performed and the tourniquet was inflated. We then made a mid-line incision, incorporating the previous incision and excising one of the sinuses, which we continued to the underlying capsular tissue. We made a parapatellar incision in the capsule. We periosteally exposed the proximal tibia, excised the synovium and scar tissue and took clultures. Purulence was noted. We excised the any tissue that was friable. We completely debrided the patella, distal femur and proximal tibia and copiously irrigated with 9 Liters of fluid. I then washed the knee with a betadine lavage, aricpet, and Xtant. I then placed 30 cc of antibiotic beads of tobramycin and gentamicin. We released the tourniquet and achieved hemostasis where necessary. We copiously irrigated the knee. We closed our capsular incision with a PDS style suture. We irrigated further. We closed the subcutaneous tissue with Vicryl suture and re-approximated the skin with shawn and nylon suture. We dressed the wound in a sterile dressing. We verified all lower extremity compartments were soft and compressible and that we had intact distal pulses. We wrapped the extremity in sterile Webril and kushal bandage. Condition Fair Disposition Still a Patient GARFIELD GARCÍA MD Jan 25, 2025 08:06
[2025-01-25] MEDS ORDERED: fentaNYL CITRATE 100 MCG/2 ML VL ONE (08:11)
[2025-01-25] MEDS ORDERED: PROPOFOL 10 MG/ML 20 ML IV ONE (08:11)
[2025-01-25] MEDS ORDERED: PHENYLEPHRINE HCL 10 MG/ML VL ONE (08:15)
[2025-01-25] MEDS ORDERED: HYDROmorphone HCL 2 MG/ML VL/or syr ONE (08:36)
[2025-01-25] MEDS ORDERED: ONDANSETRON HCL 4 MG/2 ML VIAL ONE (08:47)
[2025-01-25] MEDS: BUPIVACAINE 0.25% INJ 50ML VIAL ONE (09:10)
[2025-01-25] MEDS: HYDROmorphone HCL 2 MG/ML VL/or syr IV PRN (10:20)
[2025-01-25] MEDS: ACETAMINOPHEN IV 1000 MG/100ML (10MG/ML) IV PRN (10:20)
--- NOTE | 2025-01-25 13:56 | DVHPN2 ---
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 WITH CONFUSION METABOLIC ENCEPHALOPATHY SEVERE OSTEOARTHRITIS RIGHT KNEE EFFUSION LEUKOCYTOSIS ANEMIA PMH ORGANIC HEART DISEASE HTN CAD WITH HX OF PTCA STENT HX OF CHF HRpEF / DIASTOLIC AFIB HYPERCOAGULABLE STATE HYPOKALEMIA SEVERE CACHEXIA HYPERCALCEMIA SEPTIC JOINT vital signs Vital Sign Date Time Temp Pulse Resp B/P (MAP) Pulse Ox O2 Delivery O2 Flow Rate FiO2 01/25/25 13:38 69 16 121/58 01/25/25 13:00 98.1 96 98.1 01/25/25 10:11 Mask 9.0 100 Total Intake and Output 01/24/25 01/24/25 01/25/25 15:00 23:00 07:00 Intake Total 1440 ml 200 ml Output Total 1 ml Balance 1439 ml 200 ml medications Current Medications Medications Dose Ordered Sig/Irene Route Start Time Stop Time Status Last Admin Dose Admin Atorvastatin Calcium 10 mg HS PO 01/18/25 22:00 01/24/25 21:13 10 MG Aspirin 81 mg DAILY PO 01/19/25 10:00 01/24/25 10:04 81 MG Levothyroxine Sodium 75 mcg QAM@0600 PO 01/19/25 06:00 01/25/25 05:08 75 MCG Clonidine HCl 0.1 mg Q4HP PRN PO 01/18/25 16:00 01/24/25 23:10 0.1 MG Metoprolol Tartrate 25 mg BID PO 01/18/25 22:00 01/24/25 21:15 25 MG Acetaminophen/ Hydrocodone Bitart 1 tab Q4HP PRN PO 01/18/25 16:00 01/24/25 15:50 1 TAB Ondansetron HCl 4 mg Q4HP PRN IV 01/18/25 16:00 Docusate Sodium 100 mg BIDPRN PRN PO 01/18/25 16:00 01/24/25 21:24 100 MG Acetaminophen 650 mg Q6HP PRN PO 01/18/25 16:00 Nitroglycerin 0.4 mg Q5MINP PRN SL 01/18/25 17:30 Morphine Sulfate 2 mg Q30M PRN IV 01/18/25 17:30 01/25/25 13:38 2 MG Ceftriaxone Sodium 50 ml @ 100 mls/hr DAILY@2100 IV 01/19/25 21:00 01/24/25 21:13 100 MLS/HR Morphine Sulfate 2 mg Q4HPRN PRN IV 01/19/25 12:45 01/25/25 07:03 2 MG Alprazolam 0.5 mg BID PRN PO 01/19/25 12:45 01/24/25 21:24 0.5 MG Famotidine 10 mg DAILY PO 01/21/25 10:00 01/24/25 10:04 10 MG Lisinopril 20 mg DAILY PO 01/22/25 10:00 01/24/25 10:05 20 MG objective HEENT: Head is atraumatic normocephalic, eyes PERRLA, ENT oropharynx moist and clear, neck supple, no tenderness, trachea midline, no masses no JVD. Chest: Denies chest pain, no diaphoresis, no mass adenopathy, no tenderness. Cardiac: Regular rate and rhythm, S1-S2 normal, no murmurs, no rubs or gallops. Pulmonary: No shortness of breath, lungs are clear to auscultation bilaterally, no wheezing, no rales or rhonchi. Abdomen: Soft, tender, nondistended, no masses, bowel sounds positive. Genitourinary: Denies dysuria, no urinary frequency, no hematuria. Skin: Skin warm and dry to touch no rash or lesion, no ulceration. Extremities: No clubbing, no edema, no tenderness, no varicosity. Neurologic: Grossly intact, no new focal motor deficit, no numbness or tingling. 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
[2025-01-26] VITALS (8 sets, daily range): BP systolic 125–181; BP diastolic 56–83; PULSE 61–79; RESP 15–20; TEMP 98–99.4; O2SAT 93–97
--- NOTE | 2025-01-26 12:03 | DVHPN2 ---
Subjective The patient seen and examined at bedside. Complains of knee pain. Reviewed: Care Plan, H&P, Labs, Medications, Previous Orders Changes from previous H/P or p: No Changes General: Per HPI Eyes: No Pain, No Vision change, No Conjunctivae inflammation, No Eyelid inflammation, No Other, No Redness ENT: No Ear pain, No Ear discharge, No Nose pain, No Nose discharge, No Nose congestion, No Mouth pain, No Mouth swelling, No Throat pain, No Throat swelling, No Other Cardiovascular: No Chest Pain, No Palpitations, No Orthopnea, No Paroxysmal Noc. Dyspnea, No Edema, No Lt Headedness, No Other Respiratory: No Cough, No Dry, No Shortness of breath, No SOB with excertion, No Wheezing, No Hemoptysis, No Pleuritic Pain, No Sputum, No Other Gastrointestinal: No Nausea, No Vomiting, No Abdominal Pain, No Diarrhea, No Constipation, No Melena, No Hematochezia, No Other Genitourinary: No Dysuria, No Frequency, No Incontinence, No Hematuria, No Retention, No Other Musculoskeletal: other (Joint pain, right knee); No neck pain, No shoulder pain, No arm pain, No back pain, No hand pain, No leg pain, No foot pain Skin: No Rash, No Lesions, No Jaundice, No Bruising, No Other Objective Vitals Vital Signs Date Time Temp Pulse Resp B/P (MAP) Pulse Ox O2 Delivery O2 Flow Rate FiO2 01/26/25 11:10 70 18 147/67 01/26/25 09:00 99.4 95 99.4 01/26/25 08:00 Room Air* 0 21 Intake/Output Intake and Output 01/26/25 07:00 Intake Total 1310 ml Output Total 7 ml Balance 1303 ml Intake Oral 1160 ml IV Total 150 ml Output Urine Total 7 ml # Voids 1 General Appearance: Alert, Oriented X3, Cooperative Cardiovascular: Regular rate, Normal S1, Normal S2 Abdomen: Normal bowel sounds, Soft Neuro: Normal speech Medications Current Medications Medications Dose Ordered Sig/Irene Route Start Time Stop Time Status Last Admin Dose Admin Atorvastatin Calcium 10 mg HS PO 01/18/25 22:00 01/25/25 20:57 10 MG Aspirin 81 mg DAILY PO 01/19/25 10:00 01/26/25 09:15 81 MG Levothyroxine Sodium 75 mcg QAM@0600 PO 01/19/25 06:00 01/26/25 05:26 75 MCG Clonidine HCl 0.1 mg Q4HP PRN PO 01/18/25 16:00 01/24/25 23:10 0.1 MG Metoprolol Tartrate 25 mg BID PO 01/18/25 22:00 01/25/25 21:02 25 MG Acetaminophen/ Hydrocodone Bitart 1 tab Q4HP PRN PO 01/18/25 16:00 01/26/25 09:15 1 TAB Ondansetron HCl 4 mg Q4HP PRN IV 01/18/25 16:00 Docusate Sodium 100 mg BIDPRN PRN PO 01/18/25 16:00 01/25/25 21:48 100 MG Acetaminophen 650 mg Q6HP PRN PO 01/18/25 16:00 Nitroglycerin 0.4 mg Q5MINP PRN SL 01/18/25 17:30 Morphine Sulfate 2 mg Q30M PRN IV 01/18/25 17:30 01/18/25 20:58 2 MG Ceftriaxone Sodium 50 ml @ 100 mls/hr DAILY@2100 IV 01/19/25 21:00 01/25/25 20:55 100 MLS/HR Morphine Sulfate 2 mg Q4HPRN PRN IV 01/19/25 12:45 01/26/25 11:10 2 MG Alprazolam 0.5 mg BID PRN PO 01/19/25 12:45 01/25/25 16:46 0.5 MG Famotidine 10 mg DAILY PO 01/21/25 10:00 01/26/25 09:16 10 MG Lisinopril 20 mg DAILY PO 01/22/25 10:00 01/24/25 10:05 20 MG Laboratory Results Laboratory Tests 01/20/25 04:44 Urinalysis Test 01/18/25 19:05 Urine Color Light-yellow (Yellow) Urine Clarity Clear (Clear) Urine pH 6.0 (5.0-9.0) Urine Specific [place] 1.025 (1.001-1.035) Urine Protein 1+ (Negative) H Urine Ketones Negative (Negative) Urine Blood Negative /uL (Negative) Urine Nitrite Negative (Negative) Urine Bilirubin Negative (Negative) Urine Urobilinogen Normal mg/dL (Negative) Urine Leukocyte Esterase Negative /uL (Negative) Urine RBC <1 /hpf (0 - 4) Urine Microscopic WBC < 1 /HPF (0-5) Urine Squamous Epithelial Cells Few /hpf (<5) Urine Bacteria None seen /hpf (None Seen) Urine Yeast (Budding) Occasional /hpf (None Urine Glucose Normal mg/dL (Normal) Microbiology Microbiology Date/Time Source Procedure Growth Status 01/20/25 09:50 Knee Fluid Gram Stain - Final Complete 01/20/25 09:50 Body Fluid Culture - Final Pseudomonas aeruginosa Complete Labs and/or images reviewed: Labs reviewed by me Assessment/Plan Assessment/Plan #1 right knee effusion/pain ? infected: surg in am, iv rocephin #2 anxiety #3 anemia #4 cad #5 htn #6 hypothyroidism #7 chronic diastolic heart failure #8 hyperlipidemia 01/23/2025 Ortho plans for I&D awaiting final culture and sensitivity 01/24/2025 aspiration culture grew P, aeruginosa ortho to to I&D this week pain is controlled 01/26/2025 Continue current management. waiting for I and D by ortho Continue pain meds. Plan discussed with: Patient Date of Service: Jan 26, 2025 Billing Provider: GARCÍA CONWAY MD Common Visit Codes: [id number] INP/OBS CARE(HIGH) GARCÍA CONWAY MD Jan 26, 2025 12:03
--- NOTE | 2025-01-26 12:18 | DVHPN2 ---
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 NOW WITH CONFUSION METABOLIC ENCEPHALOPATHY SEVERE OSTEOARTHRITIS RIGHT KNEE EFFUSION LEUKOCYTOSIS ANEMIA PMH ORGANIC HEART DISEASE HTN CAD WITH HX OF PTCA STENT HX OF CHF HRpEF / DIASTOLIC AFIB HYPERCOAGULABLE STATE HYPOKALEMIA SEVERE CACHEXIA HYPERCALCEMIA SEPTIC JOINT vital signs Vital Sign Date Time Temp Pulse Resp B/P (MAP) Pulse Ox O2 Delivery O2 Flow Rate FiO2 01/26/25 11:10 70 18 147/67 01/26/25 09:00 99.4 95 99.4 01/26/25 08:00 Room Air* 0 21 Total Intake and Output 01/25/25 01/25/25 01/26/25 15:00 23:00 07:00 Intake Total 100 ml 250 ml 960 ml Output Total 7 ml Balance 100 ml 250 ml 953 ml medications Current Medications Medications Dose Ordered Sig/Irene Route Start Time Stop Time Status Last Admin Dose Admin Atorvastatin Calcium 10 mg HS PO 01/18/25 22:00 01/25/25 20:57 10 MG Aspirin 81 mg DAILY PO 01/19/25 10:00 01/26/25 09:15 81 MG Levothyroxine Sodium 75 mcg QAM@0600 PO 01/19/25 06:00 01/26/25 05:26 75 MCG Clonidine HCl 0.1 mg Q4HP PRN PO 01/18/25 16:00 01/24/25 23:10 0.1 MG Metoprolol Tartrate 25 mg BID PO 01/18/25 22:00 01/25/25 21:02 25 MG Acetaminophen/ Hydrocodone Bitart 1 tab Q4HP PRN PO 01/18/25 16:00 01/26/25 09:15 1 TAB Ondansetron HCl 4 mg Q4HP PRN IV 01/18/25 16:00 Docusate Sodium 100 mg BIDPRN PRN PO 01/18/25 16:00 01/25/25 21:48 100 MG Acetaminophen 650 mg Q6HP PRN PO 01/18/25 16:00 Nitroglycerin 0.4 mg Q5MINP PRN SL 01/18/25 17:30 Morphine Sulfate 2 mg Q30M PRN IV 01/18/25 17:30 01/18/25 20:58 2 MG Ceftriaxone Sodium 50 ml @ 100 mls/hr DAILY@2100 IV 01/19/25 21:00 01/25/25 20:55 100 MLS/HR Morphine Sulfate 2 mg Q4HPRN PRN IV 01/19/25 12:45 01/26/25 11:10 2 MG Alprazolam 0.5 mg BID PRN PO 01/19/25 12:45 01/25/25 16:46 0.5 MG Famotidine 10 mg DAILY PO 01/21/25 10:00 01/26/25 09:16 10 MG Lisinopril 20 mg DAILY PO 01/22/25 10:00 01/24/25 10:05 20 MG objective HEENT: Head is atraumatic normocephalic, eyes PERRLA, ENT oropharynx moist and clear, neck supple, no tenderness, trachea midline, no masses no JVD. Chest: Denies chest pain, no diaphoresis, no mass adenopathy, no tenderness. Cardiac: Regular rate and rhythm, S1-S2 normal, no murmurs, no rubs or gallops. Pulmonary: No shortness of breath, lungs are clear to auscultation bilaterally, no wheezing, no rales or rhonchi. Abdomen: Soft, tender, nondistended, no masses, bowel sounds positive. Genitourinary: Denies dysuria, no urinary frequency, no hematuria. Skin: Skin warm and dry to touch no rash or lesion, no ulceration. Extremities: No clubbing, no edema, no tenderness, no varicosity. Neurologic: Grossly intact, no new focal motor deficit, no numbness or tingling. 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 NOW WITH CONFUSION METABOLIC ENCEPHALOPATHY SEVERE OSTEOARTHRITIS RIGHT KNEE EFFUSION LEUKOCYTOSIS ANEMIA PMH ORGANIC HEART DISEASE HTN CAD WITH HX OF PTCA STENT HX OF CHF HRpEF / DIASTOLIC AFIB HYPERCOAGULABLE STATE HYPOKALEMIA SEVERE CACHEXIA HYPERCALCEMIA ANEMIA REACTIVE THROMBOCYTOSIS Assessment/Plan ARTHROCENTESIS CXR OF FLUID CONSIDER OPEN DEBRIDEMENT IF CONTINUED INFECTION NOW REQUIRE OPEN DEBRIDEMENT OF RIGHT NEWS EPOGEN Dietary Evaluation Review Comments: Continue current plan of care Expected Outcomes/Goals: To meet 75% estimated needs fu 3-5 days Plan discussed with: Patient ANISH DIAZ MD Jan 26, 2025 12:18
[2025-01-26] MEDS ORDERED: PATIENTS OWN MEDICATION (EPOGEN 10,000 UNITS) SUBCUT ONE (12:30)
--- NOTE | 2025-01-26 12:56 | DVHINCON2 ---
Date of service: Jan 25, 2025 Family History: Cancer G8 MOTHER UNCLE (LUNG CA) UNCLE (LEUKEMIA BRAIN CA) Family history: Cardiovascular disease G8 FATHER BROTHER Family history: Hypertension G8 FATHER AUNT BROTHER Ischemic heart disease G8 FATHER Psychiatric condition AUNT Allergies: Coded Allergies: NO KNOWN ALLERGIES (Unverified , 10/11/16) UNOBTAINABLE (Unverified , 08/10/24) Home Meds Reported Medications Potassium Chloride (Potassium Chloride ER) 20 Meq Tab, 1 TAB PO DAILY for 31 Days, #31 08/11/24 Lisinopril (Lisinopril) 40 Mg Tab, 1 TAB PO DAILY for 90 Days, #90 06/23/24 Amitriptyline HCl (Amitriptyline Hydrochlori) 100 Mg Tab, 1 TAB PO DAILY for 70 Days, #70 06/23/24 Sucralfate (Sucralfate) 1 Gm Tab, 1 TAB PO BID for 30 Days, #60 06/23/24 Ferrous Sulfate (Ferosul) 325 Mg Tab, 1 TAB PO BID for 30 Days, #60 24 Pantoprazole Sodium Sesquihydr (Pantoprazole Sodium Dr) 40 Mg Tab, 1 TAB PO BID for 90 Days, #180 24 Docusate Sodium (Docusate Sodium) 100 Mg Cap, 1 CAP PO BID for 30 Days, #60 24 Atorvastatin Calcium (Lipitor) 10 Mg Tab, 1 TAB PO DAILY for 90 Days, #90 24 Alprazolam (Alprazolam) 0.5 Mg Tab, 1 TAB PO BID for 30 Days, #60 24 Ondansetron HCl (Ondansetron Hydrochloride) 8 Mg Tab, 1 TAB PO BID PRN for JENSEN SEA / VOMITING for 30 Days, #60 24 Famotidine (Famotidine) 40 Mg Tab, 1 TAB PO BID for 90 Days, #180 24 Cholecalciferol (Gnp Vitamin D) 1,000 Unit Tab, 1 TAB PO DAILY for 90 Days, #90 24 Hydrocodone-Acetaminophen (Hydrocodone Bitartrate/AC 10-325 mg) 1 Tab Tab, 1 TAB PO BID, TAB 02/27/24 Diclofenac Sodium (Topical) (Voltaren Arthritis Pain) 1 % Gel, 1 % EX, GEL 02/27/24 Furosemide (Furosemide) 40 Mg Tab, 1 TAB PO BID for 90 Days, #180 02/27/24 Fluticasone Propionate (Fluticasone Propionate) 0.05 % Cre, 50 MCG SITA DAILY for 30 Days, MCG 02/27/24 Cyclobenzaprine Hcl (Cyclobenzaprine Hcl) 10 Mg Tab, 1 TAB PO BID for 30 Days, #60 02/27/24 Hydrochlorothiazide (Hydrochlorothiazide) 25 Mg Tab, 25 MG PO DAILY for 30 Days, MG 02/27/24 Diclofenac Sodium (Diclofenac Sodium Dr) 75 Mg Tab, 75 MG PO BID, TAB 02/27/24 Bupropion Hcl (Bupropion Hcl) 100 Mg Tab, 100 MG PO Q8HR for 30 Days, MG 02/27/24 Meclizine Hcl (Meclizine Hcl) 25 Mg Tab, 25 MG PO TID PRN for DIZZINESS for 30 Days, MG 02/27/24 Simvastatin (Simvastatin) 40 Mg Tab, 40 MG PO QPM for 30 Days 02/27/24 Carisoprodol (Carisoprodol) 350 Mg Tab, 350 MG PO QPM for 30 Days, MG 02/27/24 Tramadol Hcl (Tramadol Hcl) 50 Mg Tab, 50 MG PO BID, TAB 04/12/23 Pancrelipase (Lipase-Protease- (CREON) 36,000 Unt Cap, 1 CAP PO TID for 31 Days, #100 04/12/23 Loratadine (Loratadine) 10 Mg Cap, 10 MG PO, CAP 04/24/19 Metoprolol Succinate (Metoprolol Succinate Er) 25 Mg Tab, 25 MG PO DAILY, TAB 01/17/17 Levothyroxine Sodium (Levothyroxine Sodium) 75 Mcg Tab, 1 TAB PO DAILY for 90 Days, #90 12/24/16 Aspirin (Aspirin) 81 Mg Tab, 1 TAB PO DAILY for 90 Days, #90 12/24/16 Nitroglycerin (NTROSTAT SUBLINGUAL) 0.4 Mg Sl, 0.4 MG SL Q5MIN for FOR CHEST PAIN *MAY REPEAT EVERY 5 MINUTES X 3 TOTAL IF NO RELIEF, INITIATE ANALGESIC THERAPY. NOTIFY PHYSICIAN *Do not crush. 12/24/16 Vital Signs Vital Signs Date Time Temp Pulse Resp B/P (MAP) Pulse Ox O2 Delivery O2 Flow Rate FiO2 01/26/25 11:10 70 18 147/67 01/26/25 09:00 99.4 95 99.4 01/26/25 08:00 Room Air* 0 21 Labs/Diagnostic Data Labs Test 01/20/25 09:50 01/20/25 04:44 01/19/25 06:43 01/18/25 19:51 Range/Units Body Fluid Source Synovial fluid Body Fluid pH 9.0 Body Fluid WBC (Manual) 29429 H 0-200 CUMM Body Fluid RBC (Manual) 05100 H 0-2000 CUMM Body Fluid Mononuclear Cells 12 % Body Fluid Polymorphonuclear Cells 88 H 0-25 % Body Fluid Glucose 3 . mg/dL White Blood Count 7.7 4.4-10.8 10^3/uL Red Blood Count 2.98 L 4.0-5.20 10^6/uL Hemoglobin 8.3 L 12.2-16.2 g/dL Hematocrit 24.3 L 36.0-46.0 % Mean Corpuscular Volume 81.8 80.0-100.0 fL Mean Corpuscular Hemoglobin 27.7 L 28.0-32.0 pg Mean Corpuscular Hemoglobin Concent 33.9 32.0-36.0 g/dL Red Cell Distribution Width 17.5 H 11.8-14.3 % Platelet Count 815 *H 140-450 10^3/uL Mean Platelet Volume 5.7 L 6.9-10.8 fL Neutrophils (%) (Auto) 66.2 37.0-80.0 % Lymphocytes (%) (Auto) 19.9 10.0-50.0 % Monocytes (%) (Auto) 12.2 H 0.0-12.0 % Eosinophils (%) (Auto) 1.4 0.0-7.0 % Basophils (%) (Auto) 0.3 0.0-2.0 % Neutrophils # (Auto) 5.1 1.6-8.6 10 ^3/uL Lymphocytes # (Auto) 1.5 0.4-5.4 10 ^3/uL Monocytes # (Auto) 0.9 0-1.3 10 ^3/uL Eosinophils # (Auto) 0.1 0-0.8 10 ^3/uL Basophils # (Auto) 0 0-0.2 10 ^3/uL Nucleated Red Blood Cells 0.1 % Platelet Estimate Markedly increased Prothrombin Time 10.8 9.3-11.8 sec Prothrombin Time INR 1.02 0.9-1.15 Activated Partial Thromboplast Time 30.2 24.5-34.5 SEC Sodium Level 132 L 136-145 mmol/L Potassium Level 3.7 3.5-5.1 mmol/L Chloride Level 99 98-107 mmol/L Carbon Dioxide Level 25 20-31 mmol/L Anion Gap 8 5-15 Blood Urea Nitrogen 16 9-23 mg/dL Creatinine 0.74 0.550-1.02 mg/dL Glomerular Filtration Rate Calc 79 >90 mL/min BUN/Creatinine Ratio 21.6 H 10.0-20.0 Serum Glucose 84 74-106 mg/dL Calcium Level 9.6 8.7-10.4 mg/dL Total Bilirubin 0.2 0.2-1.0 mg/dL Aspartate Amino Transferase (AST) 17 13-40 U/L Alanine Aminotransferase (ALT) 9 7-40 U/L Alkaline Phosphatase 95 46-116 U/L Total Protein 6.3 5.7-8.2 g/dL Albumin 3.0 L 3.2-4.8 g/dL Erythrocyte Sedimentation Rate 108 H 0-20 mm/hr Test 01/18/25 19:05 01/18/25 13:18 Range/Units Urine Color Light-yellow Yellow Urine Clarity Clear Clear Urine pH 6.0 5.0-9.0 Urine Specific [place] 1.025 1.001-1.035 Urine Protein 1+ H Negative Urine Ketones Negative Negative Urine Blood Negative Negative /uL Urine Nitrite Negative Negative Urine Bilirubin Negative Negative Urine Urobilinogen Normal Negative mg/dL Urine Leukocyte Esterase Negative Negative /uL Urine RBC <1 0 - 4 /hpf Urine Microscopic WBC < 1 0-5 /HPF Urine Squamous Epithelial Cells Few <5 /hpf Urine Bacteria None seen None Seen /hpf Urine Yeast (Budding) Occasional None Seen /hpf Urine Glucose Normal Normal mg/dL Troponin I High Sensitivity 19 </=34 ng/L C-Reactive Protein High Sensitivity 12.67 H <1.0 mg/dL B-Type Natriuretic Peptide 239.01 0-100 pg/mL Thyroid Stimulating Hormone (TSH) 3.31 0.55-4.78 uIU/mL Microbiology Date/Time Source Procedure Growth Status 01/20/25 09:50 Knee Fluid Gram Stain - Final Complete 01/20/25 09:50 Body Fluid Culture - Final Pseudomonas aeruginosa Complete Problems(with codes): (1) Prosthetic joint infection (2) Leukocytosis, unspecified (3) Knee effusion, right (4) Common bile duct dilatation (5) Leukocytosis Plan/Recommendation ASSESSMENT AND PLAN: ID Problem List: \-- 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 female with a past medical history of anxiety, congestive heart failure, depression, thyroid disease, and hypertension, who presents following a fall onto her right knee (site of a total knee replacement performed 4 months ago). Over the past month, she has experienced persistent right knee pain, swelling, and difficulty with ambulation. She was found to have a markedly elevated platelet count (peaked at 848), anemia (hemoglobin 8.7), and a white blood cell count initially elevated at 10.9 but improved to 7.7. Her right knee has a large effusion; aspiration grew de la cruz- sensitive Pseudomonas aeruginosa. She underwent operative debridement/irrigation with the placement of a wound vac and antibiotic spacer (tobramycin/gentamicin beads). No fevers noted currently. CT and ultrasound imaging identified large right knee effusion, soft tissue calcifications, and thin tissue likely consistent with dehiscence. Chest X-ray shows mild interstitial prominence and findings that may indicate underlying pulmonary vascular congestion or emphysematous changes. Current Plan: \-- Continue IV cefepime 6g daily continuously via PICC line for 6 weeks for prosthetic joint infection \-- Infectious disease follow-up for eventual transition to oral levofloxacin (noted fluoroquinolone sensitivity) after completion of planned IV therapy \-- Wound care and post-operative follow-up with Dr. Fitzgerald \-- Maintain wound vac, monitor for signs of persistent infection \-- Monitor CBC for anemia and thrombocytosis \-- Symptom monitoring: pain, drainage, fevers \-- CHF, hypertension, thyroid disease, anxiety, and depression management as per primary Isolation Precautions: Standard \*Assessment and plan was discussed with the patient as written above \*Plan is subject to change pending incorporation of new incoming information/diagnostics. Updates may be added as addendum at the bottom (OR TOP) of this note Thank you for interesting consult. ID will continue to follow. Please contact Infectious Disease for any questions or concerns. Adelina Wallace M.D. [facility] Ph: ? Teams text: [email or web address] Electronically signed by: Adelina Wallace MD, 01/25/2025 \ History: The patient's chart and medications were reviewed in detail and the patient was seen and examined. History obtained from: patient Verónica Louise is an 84 y.o. female with a history of anxiety, CHF, depression, thyroid disease, and hypertension, presenting with persistent right knee pain and swelling following a fall about a month ago onto her right knee, which had undergone total joint arthroplasty 4 months prior. She has difficulty ambulating since that time. Lab evaluation revealed anemia (Hgb 8.7), initial leukocytosis (WBC 10.9), and thrombocytosis (platelets peaked at 848). She resides at an assisted care halfway. Review of Systems: A complete 10 system review of systems was completed and negative except as noted in the HPI or here. ROS: -CONSTITUTIONAL: Denies weight loss, fever and chills. -HEENT: Denies changes in vision and hearing. -RESPIRATORY: Denies shortness of breath and cough. -CARDIOVASCULAR: Denies palpitations and chest pain. -GASTROINTESTINAL: Denies abdominal pain, nausea, vomiting and diarrhea. -GENITOURINARY: Denies dysuria and urinary frequency. -MUSCULOSKELETAL: Positive for right knee pain and swelling. Denies myalgia and other joint pain. -SKIN: Denies rash and pruritus. -NEUROLOGICAL: Denies headache and syncope. -PSYCHIATRIC: Denies recent changes in mood. Denies anxiety and depression. Past Medical History: Anxiety Congestive heart failure Depression Thyroid disease Hypertension Past Surgical History: Appendectomy Hysterectomy Total right knee arthroplasty (4 months prior) (History reviewed. No other pertinent surgical history provided.) Home Medications: Not fully specified in transcript. (Medication details not provided.) Allergies: No known drug allergies. Family History: Not discussed. Social History: Lives at an assisted care halfway Tobacco use: Never Alcohol use: Never Illicit/IV drug use: Never Sexual activity: Not discussed Other pertinent social determinants: Not discussed Objective: Vital Signs on Arrival: Temp: 97.6 F BP: 168/68 Pulse: 72 Resp: 20 SpO2: 98% on room air Most Recent Vital Signs: Temp: 97.6 F BP: 168/68 Pulse: 71 Resp: 20 SpO2: 98% on room air Admission Weight: Not provided in transcript. BMI: Not provided. Physical Exam: General: NAD Neck: Supple. No masses. HEENT: PERRL. Normal lids and conjunctiva. Moist mucous membranes. Oropharynx without lesions, exudates or excessive erythema. Normal appearance of the external aspects of the nose and ears. Heart: Regular rhythm, normal rate. No murmur. No lower extremity edema. Lungs: Normal respiratory effort. Clear to auscultation bilaterally. No wheezes. No crackles. Abdomen: Soft. Non-tender. Non-distended. No masses or abdominal hernia. Msk: Right knee swelling and tenderness. No digital cyanosis. Normal strength and tone in all 4 limbs. Skin: Warm and dry, no rashes. Neuro: Alert. No facial droop or slurred speech. Extra-ocular movements intact. Sensation intact to soft touch in all 4 limbs. Psych: Appropriate mood. Full affect. Oriented to person, place, time, and situation. Lines: PICC line: for IV antibiotic administration Wound vac placement to right knee Diagnostic Studies: Available diagnostic studies were reviewed personally. Significant relevant results and findings are outlined below or addressed in the Assessment and Plan above. Pertinent Imaging: Recent Results: -CT Right Knee: Large knee effusion with soft tissue/subcutaneous edema, interval removal of total knee arthroplasty components, cement spacer present, thin anterior tissue suggestive of dehiscence, calcifications in joint fluid and surrounding soft tissues. -Chest X-ray: Mild interstitial prominence, emphysematous changes, pulmonary vascular congestion or possible infectious etiology. -Right Knee Ultrasound: Small complex fluid collection. -Joint fluid aspiration: Growth of de la cruz-sensitive Pseudomonas aeruginosa. Laboratory Data: -White count: Initially 10.9, improved to 7.7 -Hemoglobin: 8.7 -Platelet count: Peaked at 848 Electronically signed by: Adelina Wallace MD, 01/25/2025 Plan discussed with: Patient ADELINA WALLACE MD Jan 26, 2025 12:56
--- NOTE | 2025-01-26 13:10 | DVHPN2 ---
Consult Progress Note Date Seen: Jan 26, 2025 Subjective Patient reports: Other Objective vital signs Vital Sign Date Time Temp Pulse Resp B/P (MAP) Pulse Ox O2 Delivery O2 Flow Rate FiO2 01/26/25 11:10 70 18 147/67 01/26/25 09:00 99.4 95 99.4 01/26/25 08:00 Room Air* 0 21 Total Intake and Output 01/25/25 01/25/25 01/26/25 15:00 23:00 07:00 Intake Total 100 ml 250 ml 960 ml Output Total 7 ml Balance 100 ml 250 ml 953 ml medications Current Medications Medications Dose Ordered Sig/Irene Route Start Time Stop Time Status Last Admin Dose Admin Atorvastatin Calcium 10 mg HS PO 01/18/25 22:00 01/25/25 20:57 Aspirin 81 mg DAILY PO 01/19/25 10:00 01/26/25 09:15 Levothyroxine Sodium 75 mcg QAM@0600 PO 01/19/25 06:00 01/26/25 05:26 Clonidine HCl 0.1 mg Q4HP PRN PO 01/18/25 16:00 01/24/25 23:10 Metoprolol Tartrate 25 mg BID PO 01/18/25 22:00 01/25/25 21:02 Acetaminophen/ Hydrocodone Bitart 1 tab Q4HP PRN PO 01/18/25 16:00 01/26/25 09:15 Ondansetron HCl 4 mg Q4HP PRN IV 01/18/25 16:00 Docusate Sodium 100 mg BIDPRN PRN PO 01/18/25 16:00 01/25/25 21:48 Acetaminophen 650 mg Q6HP PRN PO 01/18/25 16:00 Nitroglycerin 0.4 mg Q5MINP PRN SL 01/18/25 17:30 Morphine Sulfate 2 mg Q30M PRN IV 01/18/25 17:30 01/18/25 20:58 Ceftriaxone Sodium 50 ml @ 100 mls/hr DAILY@2100 IV 01/19/25 21:00 01/25/25 20:55 Morphine Sulfate 2 mg Q4HPRN PRN IV 01/19/25 12:45 01/26/25 11:10 Alprazolam 0.5 mg BID PRN PO 01/19/25 12:45 01/25/25 16:46 Famotidine 10 mg DAILY PO 01/21/25 10:00 01/26/25 09:16 Lisinopril 20 mg DAILY PO 01/22/25 10:00 01/24/25 10:05 Physical Exam: General: NAD Neck: Supple. No masses. HEENT: PERRL. Normal lids and conjunctiva. Moist mucous membranes. Oropharynx without lesions, exudates or excessive erythema. Normal appearance of the external aspects of the nose and ears. Heart: Regular rhythm, normal rate. No murmur. No lower extremity edema. Lungs: Normal respiratory effort. Clear to auscultation bilaterally. No wheezes. No crackles. Abdomen: Soft. Non-tender. Non-distended. No masses or abdominal hernia. Msk: Right knee swelling and tenderness. No digital cyanosis. Normal strength and tone in all 4 limbs. Skin: Warm and dry, no rashes. Neuro: Alert. No facial droop or slurred speech. Extra-ocular movements intact. Sensation intact to soft touch in all 4 limbs. Psych: Appropriate mood. Full affect. Oriented to person, place, time, and situation. 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 female with a past medical history of anxiety, congestive heart failure, depression, thyroid disease, and hypertension, who presents following a fall onto her right knee (site of a total knee replacement performed 4 months ago). Over the past month, she has experienced persistent right knee pain, swelling, and difficulty with ambulation. She was found to have a markedly elevated platelet count (peaked at 848), anemia (hemoglobin 8.7), and a white blood cell count initially elevated at 10.9 but improved to 7.7. Her right knee has a large effusion; aspiration grew de la cruz- sensitive Pseudomonas aeruginosa. She underwent operative debridement/irrigation with the placement of a wound vac and antibiotic spacer (tobramycin/gentamicin beads). No fevers noted currently. CT and ultrasound imaging identified large right knee effusion, soft tissue calcifications, and thin tissue likely consistent with dehiscence. Chest X-ray shows mild interstitial prominence and findings that may indicate underlying pulmonary vascular congestion or emphysematous changes. 01/26: clinically stable s/p operative debridement of the left knee . likely confused in the setting of anesthesia use Current Plan: - given pseudomonas is de la cruz sensitive would treat with IV cefepime for 6 weeks \-- Continue IV cefepime 6g daily continuously via PICC line for 6 weeks for prosthetic joint infection \-- Infectious disease follow-up for eventual transition to oral levofloxacin (noted fluoroquinolone sensitivity) after completion of planned IV therapy \-- Wound care and post-operative follow-up with Dr. Fitzgerald \-- Maintain wound vac, monitor for signs of persistent infection \-- Monitor CBC for anemia and thrombocytosis \-- Symptom monitoring: pain, drainage, fevers \-- CHF, hypertension, thyroid disease, anxiety, and depression management as per primary Isolation Precautions: Standard Plan discussed with: Other Dietary Evaluation Review Comments: Continue current plan of care Expected Outcomes/Goals: To meet 75% estimated needs fu 3-5 days ADELINA OROZCO MD Jan 26, 2025 13:10
[2025-01-26 14:33] LABS: INR 1.14 (0.9-1.15); Prothrombin Time 11.9 sec (9.3-11.8)
[2025-01-26] MEDS: EPOETIN ALFA-EPBX 10,000 UNIT/1ML VIAL SC ONE (14:38)
[2025-01-26] MEDS: CEFEPIME 2GM/50ML NS 50 ML IV SCH (14:38)
[2025-01-27] VITALS (7 sets, daily range): BP systolic 124–152; BP diastolic 60–73; PULSE 53–71; RESP 14–20; TEMP 96.4–98.4; O2SAT 90–96
[2025-01-27] MEDS: TOBRAMYCIN INJ 80 MG in D5W 5% 100 ML IV ONE (07:30)
[2025-01-27] MEDS: CEFEPIME 1GM/50ML 50 ML IV ONE ×3 (07:31)
[2025-01-27] MEDS: ceFAZolin 1GM/50ML 100 ML IV ONE (07:31)
[2025-01-27] MEDS: HYDROmorphone HCL 2 MG/ML VL/or syr ONE (07:31)
[2025-01-27] MEDS: ACETAMINOPHEN IV 100 ML IV ONE (07:32)
[2025-01-27] MEDS: METOCLOPRAMIDE HCL 5MG/ml INJ 2ml VIAL IV ONE (07:32)
[2025-01-27] MEDS: ONDANSETRON HCL 4 MG/2 ML VIAL IV ONE (07:36)
--- NOTE | 2025-01-27 11:55 | DVHPN2 ---
Subjective The patient seen and examined at bedside. Complains of knee pain. Reviewed: Care Plan, H&P, Labs, Medications, Previous Orders Changes from previous H/P or p: No Changes General: Per HPI Eyes: No Pain, No Vision change, No Conjunctivae inflammation, No Eyelid inflammation, No Other, No Redness ENT: No Ear pain, No Ear discharge, No Nose pain, No Nose discharge, No Nose congestion, No Mouth pain, No Mouth swelling, No Throat pain, No Throat swelling, No Other Cardiovascular: No Chest Pain, No Palpitations, No Orthopnea, No Paroxysmal Noc. Dyspnea, No Edema, No Lt Headedness, No Other Respiratory: No Cough, No Dry, No Shortness of breath, No SOB with excertion, No Wheezing, No Hemoptysis, No Pleuritic Pain, No Sputum, No Other Gastrointestinal: No Nausea, No Vomiting, No Abdominal Pain, No Diarrhea, No Constipation, No Melena, No Hematochezia, No Other Genitourinary: No Dysuria, No Frequency, No Incontinence, No Hematuria, No Retention, No Other Musculoskeletal: other (Joint pain, right knee); No neck pain, No shoulder pain, No arm pain, No back pain, No hand pain, No leg pain, No foot pain Skin: No Rash, No Lesions, No Jaundice, No Bruising, No Other Objective Vitals Vital Signs Date Time Temp Pulse Resp B/P (MAP) Pulse Ox O2 Delivery O2 Flow Rate FiO2 01/27/25 09:19 60 147/73 01/27/25 08:42 98.4 17 94 98.4 01/27/25 08:00 Room Air* 0 N/A Nasal Cannula* Intake/Output Intake and Output 01/27/25 07:00 Intake Total 1270 ml Balance 1270 ml Intake Oral 1220 ml IV Total 50 ml # Voids 10 General Appearance: Alert, Oriented X3, Cooperative Cardiovascular: Regular rate, Normal S1, Normal S2 Abdomen: Normal bowel sounds, Soft Neuro: Normal speech Medications Current Medications Medications Dose Ordered Sig/Irene Route Start Time Stop Time Status Last Admin Dose Admin Atorvastatin Calcium 10 mg HS PO 01/18/25 22:00 01/26/25 22:19 10 MG Aspirin 81 mg DAILY PO 01/19/25 10:00 01/27/25 09:17 81 MG Levothyroxine Sodium 75 mcg QAM@0600 PO 01/19/25 06:00 01/27/25 05:13 75 MCG Clonidine HCl 0.1 mg Q4HP PRN PO 01/18/25 16:00 01/24/25 23:10 0.1 MG Metoprolol Tartrate 25 mg BID PO 01/18/25 22:00 01/27/25 09:19 25 MG Acetaminophen/ Hydrocodone Bitart 1 tab Q4HP PRN PO 01/18/25 16:00 01/27/25 09:19 1 TAB Ondansetron HCl 4 mg Q4HP PRN IV 01/18/25 16:00 Docusate Sodium 100 mg BIDPRN PRN PO 01/18/25 16:00 01/25/25 21:48 100 MG Acetaminophen 650 mg Q6HP PRN PO 01/18/25 16:00 Nitroglycerin 0.4 mg Q5MINP PRN SL 01/18/25 17:30 Morphine Sulfate 2 mg Q30M PRN IV 01/18/25 17:30 01/18/25 20:58 2 MG Morphine Sulfate 2 mg Q4HPRN PRN IV 01/19/25 12:45 01/27/25 05:16 2 MG Alprazolam 0.5 mg BID PRN PO 01/19/25 12:45 01/26/25 18:16 0.5 MG Famotidine 10 mg DAILY PO 01/21/25 10:00 01/27/25 09:18 10 MG Lisinopril 20 mg DAILY PO 01/22/25 10:00 01/27/25 09:17 20 MG Cefepime HCl 50 ml @ 12.5 mls/hr Q12HR IV 01/26/25 14:00 01/27/25 09:17 12.5 MLS/HR Laboratory Results Laboratory Tests 01/20/25 04:44 Coagulation Test 01/26/25 14:07 Prothrombin Time 11.9 sec (9.3-11.8) H Prothrombin Time INR 1.14 (0.9-1.15) Urinalysis Test 01/18/25 19:05 Urine Color Light-yellow (Yellow) Urine Clarity Clear (Clear) Urine pH 6.0 (5.0-9.0) Urine Specific [place] 1.025 (1.001-1.035) Urine Protein 1+ (Negative) H Urine Ketones Negative (Negative) Urine Blood Negative /uL (Negative) Urine Nitrite Negative (Negative) Urine Bilirubin Negative (Negative) Urine Urobilinogen Normal mg/dL (Negative) Urine Leukocyte Esterase Negative /uL (Negative) Urine RBC <1 /hpf (0 - 4) Urine Microscopic WBC < 1 /HPF (0-5) Urine Squamous Epithelial Cells Few /hpf (<5) Urine Bacteria None seen /hpf (None Seen) Urine Yeast (Budding) Occasional /hpf (None Urine Glucose Normal mg/dL (Normal) Microbiology Microbiology Date/Time Source Procedure Growth Status 01/20/25 09:50 Knee Fluid Gram Stain - Final Complete 01/20/25 09:50 Body Fluid Culture - Final Pseudomonas aeruginosa Complete Labs and/or images reviewed: Labs reviewed by me Assessment/Plan Assessment/Plan #1 right knee effusion/pain ? infected: surg in am, iv rocephin #2 anxiety #3 anemia #4 cad #5 htn #6 hypothyroidism #7 chronic diastolic heart failure #8 hyperlipidemia 01/23/2025 Ortho plans for I&D awaiting final culture and sensitivity 01/24/2025 aspiration culture grew P, aeruginosa ortho to to I&D this week pain is controlled 01/26/2025 Continue current management. I and D by ortho done, wound vac place. Continue pain meds. 01/27/2025 Continue current management. Waiting for ID specialist on IV antibiotic as outpatient, and duration of treatment. PICC line placement. Continue pain meds. This medical document was created using an electronic medical record system with [employer] direct computerized dictation system. Although this document has been carefully reviewed, there may still be some phonetic and typographical errors. These areas are purely typographical due to imperfections of the software programs, and do not reflect any compromise in the patient's medical care. Plan discussed with: Patient, Other (RN) Date of Service: Jan 27, 2025 Billing Provider: GARCÍA CONWAY MD Common Visit Codes: [id number] INP/OBS CARE(HIGH) GARCÍA CONWAY MD Jan 27, 2025 11:55
--- NOTE | 2025-01-27 12:56 | DVHPN2 ---
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 NOW WITH CONFUSION METABOLIC ENCEPHALOPATHY SEVERE OSTEOARTHRITIS RIGHT KNEE EFFUSION LEUKOCYTOSIS ANEMIA PMH ORGANIC HEART DISEASE HTN CAD WITH HX OF PTCA STENT HX OF CHF HRpEF / DIASTOLIC AFIB HYPERCOAGULABLE STATE HYPOKALEMIA SEVERE CACHEXIA HYPERCALCEMIA SEPTIC JOINT vital signs Vital Sign Date Time Temp Pulse Resp B/P (MAP) Pulse Ox O2 Delivery O2 Flow Rate FiO2 01/27/25 09:19 60 147/73 01/27/25 08:42 98.4 17 94 98.4 01/27/25 08:00 Room Air* 0 N/A Nasal Cannula* Total Intake and Output 01/26/25 01/26/25 01/27/25 15:00 23:00 07:00 Intake Total 720 ml 550 ml Balance 720 ml 550 ml medications Current Medications Medications Dose Ordered Sig/Irene Route Start Time Stop Time Status Last Admin Dose Admin Atorvastatin Calcium 10 mg HS PO 01/18/25 22:00 01/26/25 22:19 10 MG Aspirin 81 mg DAILY PO 01/19/25 10:00 01/27/25 09:17 81 MG Levothyroxine Sodium 75 mcg QAM@0600 PO 01/19/25 06:00 01/27/25 05:13 75 MCG Clonidine HCl 0.1 mg Q4HP PRN PO 01/18/25 16:00 01/24/25 23:10 0.1 MG Metoprolol Tartrate 25 mg BID PO 01/18/25 22:00 01/27/25 09:19 25 MG Acetaminophen/ Hydrocodone Bitart 1 tab Q4HP PRN PO 01/18/25 16:00 01/27/25 09:19 1 TAB Ondansetron HCl 4 mg Q4HP PRN IV 01/18/25 16:00 Docusate Sodium 100 mg BIDPRN PRN PO 01/18/25 16:00 01/25/25 21:48 100 MG Acetaminophen 650 mg Q6HP PRN PO 01/18/25 16:00 Nitroglycerin 0.4 mg Q5MINP PRN SL 01/18/25 17:30 Morphine Sulfate 2 mg Q30M PRN IV 01/18/25 17:30 01/18/25 20:58 2 MG Morphine Sulfate 2 mg Q4HPRN PRN IV 01/19/25 12:45 01/27/25 05:16 2 MG Alprazolam 0.5 mg BID PRN PO 01/19/25 12:45 01/26/25 18:16 0.5 MG Famotidine 10 mg DAILY PO 01/21/25 10:00 01/27/25 09:18 10 MG Lisinopril 20 mg DAILY PO 01/22/25 10:00 01/27/25 09:17 20 MG Cefepime HCl 50 ml @ 12.5 mls/hr Q12HR IV 01/26/25 14:00 01/27/25 09:17 12.5 MLS/HR objective HEENT: Head is atraumatic normocephalic, eyes PERRLA, ENT oropharynx moist and clear, neck supple, no tenderness, trachea midline, no masses no JVD. Chest: Denies chest pain, no diaphoresis, no mass adenopathy, no tenderness. Cardiac: Regular rate and rhythm, S1-S2 normal, no murmurs, no rubs or gallops. Pulmonary: No shortness of breath, lungs are clear to auscultation bilaterally, no wheezing, no rales or rhonchi. Abdomen: Soft, tender, nondistended, no masses, bowel sounds positive. Genitourinary: Denies dysuria, no urinary frequency, no hematuria. Skin: Skin warm and dry to touch no rash or lesion, no ulceration. Extremities: No clubbing, no edema, no tenderness, no varicosity. Neurologic: Grossly intact, no new focal motor deficit, no numbness or tingling. 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 NOW WITH CONFUSION METABOLIC ENCEPHALOPATHY SEVERE OSTEOARTHRITIS RIGHT KNEE EFFUSION LEUKOCYTOSIS ANEMIA PMH ORGANIC HEART DISEASE HTN CAD WITH HX OF PTCA STENT HX OF CHF HRpEF / DIASTOLIC AFIB HYPERCOAGULABLE STATE HYPOKALEMIA SEVERE CACHEXIA HYPERCALCEMIA ANEMIA REACTIVE THROMBOCYTOSIS Assessment/Plan ARTHROCENTESIS CXR OF FLUID CONSIDER OPEN DEBRIDEMENT IF CONTINUED INFECTION NOW REQUIRE OPEN DEBRIDEMENT OF RIGHT NEWS EPOGEN PHYSICAL THERAPY Dietary Evaluation Review Comments: Continue current plan of care Expected Outcomes/Goals: To meet 75% estimated needs fu 3-5 days Plan discussed with: Patient ANISH DIAZ MD Jan 27, 2025 12:56
[2025-01-27] MEDS: LIDOCAINE 1% (LOCAL ANESTH.) PF 5ml SDV ID ONE (14:30)
[2025-01-27] MEDS: SODIUM CHLOR 0.9% PF (SALINE LOCK) 10ML VIAL/SYR IV SCH (21:05)
[2025-01-28] VITALS (7 sets, daily range): BP systolic 142–182; BP diastolic 70–116; PULSE 58–71; RESP 16–19; TEMP 97–98.7; O2SAT 93–99
--- NOTE | 2025-01-28 10:59 | DVHPN2 ---
Progress Note - Dictate Date Seen: Jan 28, 2025 Medical Necessity Reason Pt with a Central, PICC or Fol: No Subjective NOW WITH KNEE EFFUSION HX OF SEPTIC JOINT S/P EXPLANTATION OF RIGHT KNEE PROSTHESIS WITH SPACERS NOW WITH CONFUSION METABOLIC ENCEPHALOPATHY SEVERE OSTEOARTHRITIS RIGHT KNEE EFFUSION LEUKOCYTOSIS ANEMIA PMH ORGANIC HEART DISEASE HTN CAD WITH HX OF PTCA STENT HX OF CHF HRpEF / DIASTOLIC AFIB HYPERCOAGULABLE STATE HYPOKALEMIA SEVERE CACHEXIA HYPERCALCEMIA SEPTIC JOINT vital signs Vital Sign Date Time Temp Pulse Resp B/P (MAP) Pulse Ox O2 Delivery O2 Flow Rate FiO2 01/28/25 09:35 17 157/72 01/28/25 09:33 17 01/28/25 08:30 97.6 94 97.6 01/27/25 20:00 Room Air* 0 N/A Nasal Cannula* Total Intake and Output 01/27/25 01/27/25 01/28/25 15:00 23:00 07:00 Intake Total 1140 ml 400 ml Balance 1140 ml 400 ml medications Current Medications Medications Dose Ordered Sig/Irene Route Start Time Stop Time Status Last Admin Dose Admin Atorvastatin Calcium 10 mg HS PO 01/18/25 22:00 01/27/25 21:06 10 MG Aspirin 81 mg DAILY PO 01/19/25 10:00 01/28/25 09:34 81 MG Levothyroxine Sodium 75 mcg QAM@0600 PO 01/19/25 06:00 01/28/25 05:02 75 MCG Clonidine HCl 0.1 mg Q4HP PRN PO 01/18/25 16:00 01/28/25 00:36 0.1 MG Metoprolol Tartrate 25 mg BID PO 01/18/25 22:00 01/28/25 09:35 25 MG Ondansetron HCl 4 mg Q4HP PRN IV 01/18/25 16:00 Docusate Sodium 100 mg BIDPRN PRN PO 01/18/25 16:00 01/25/25 21:48 100 MG Acetaminophen 650 mg Q6HP PRN PO 01/18/25 16:00 Nitroglycerin 0.4 mg Q5MINP PRN SL 01/18/25 17:30 Morphine Sulfate 2 mg Q4HPRN PRN IV 01/19/25 12:45 01/28/25 09:33 2 MG Alprazolam 0.5 mg BID PRN PO 01/19/25 12:45 01/26/25 18:16 0.5 MG Famotidine 10 mg DAILY PO 01/21/25 10:00 01/28/25 09:33 10 MG Lisinopril 20 mg DAILY PO 01/22/25 10:00 01/28/25 09:34 20 MG Cefepime HCl 50 ml @ 12.5 mls/hr Q12HR IV 01/26/25 14:00 01/28/25 09:32 12.5 MLS/HR Sodium Chloride 10 ml QSHIFT@10,22 IV 01/27/25 22:00 01/28/25 09:49 10 ML objective HEENT: Head is atraumatic normocephalic, eyes PERRLA, ENT oropharynx moist and clear, neck supple, no tenderness, trachea midline, no masses no JVD. Chest: Denies chest pain, no diaphoresis, no mass adenopathy, no tenderness. Cardiac: Regular rate and rhythm, S1-S2 normal, no murmurs, no rubs or gallops. Pulmonary: No shortness of breath, lungs are clear to auscultation bilaterally, no wheezing, no rales or rhonchi. Abdomen: Soft, tender, nondistended, no masses, bowel sounds positive. Genitourinary: Denies dysuria, no urinary frequency, no hematuria. Skin: Skin warm and dry to touch no rash or lesion, no ulceration. Extremities: No clubbing, no edema, no tenderness, no varicosity. Neurologic: Grossly intact, no new focal motor deficit, no numbness or tingling. 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 NOW WITH CONFUSION METABOLIC ENCEPHALOPATHY SEVERE OSTEOARTHRITIS RIGHT KNEE EFFUSION LEUKOCYTOSIS ANEMIA PMH ORGANIC HEART DISEASE HTN CAD WITH HX OF PTCA STENT HX OF CHF HRpEF / DIASTOLIC AFIB HYPERCOAGULABLE STATE HYPOKALEMIA SEVERE CACHEXIA HYPERCALCEMIA ANEMIA REACTIVE THROMBOCYTOSIS Assessment/Plan ARTHROCENTESIS CXR OF FLUID CONSIDER OPEN DEBRIDEMENT IF CONTINUED INFECTION NOW REQUIRE OPEN DEBRIDEMENT OF RIGHT NEWS EPOGEN PHYSICAL THERAPY WROTE FOR EPOGEN BUT PHARMACY HAS NOT GIVEN THE PT THE ORDERS WRITTEN IF EPOGEN IS NOT GIVEN PT MAY REQUIRE TRANSFUSION INSTEAD Dietary Evaluation Review Comments: Continue current plan of care Expected Outcomes/Goals: To meet 75% estimated needs fu 3-5 days Plan discussed with: Patient ANISH DIAZ MD Jan 28, 2025 10:59
--- NOTE | 2025-01-28 11:44 | DVHPN2 ---
Subjective The patient seen and examined at bedside. Complains of knee pain. Reviewed: Care Plan, H&P, Labs, Medications, Previous Orders Changes from previous H/P or p: No Changes General: Per HPI Eyes: No Pain, No Vision change, No Conjunctivae inflammation, No Eyelid inflammation, No Other, No Redness ENT: No Ear pain, No Ear discharge, No Nose pain, No Nose discharge, No Nose congestion, No Mouth pain, No Mouth swelling, No Throat pain, No Throat swelling, No Other Cardiovascular: No Chest Pain, No Palpitations, No Orthopnea, No Paroxysmal Noc. Dyspnea, No Edema, No Lt Headedness, No Other Respiratory: No Cough, No Dry, No Shortness of breath, No SOB with excertion, No Wheezing, No Hemoptysis, No Pleuritic Pain, No Sputum, No Other Gastrointestinal: No Nausea, No Vomiting, No Abdominal Pain, No Diarrhea, No Constipation, No Melena, No Hematochezia, No Other Genitourinary: No Dysuria, No Frequency, No Incontinence, No Hematuria, No Retention, No Other Musculoskeletal: other (Joint pain, right knee); No neck pain, No shoulder pain, No arm pain, No back pain, No hand pain, No leg pain, No foot pain Skin: No Rash, No Lesions, No Jaundice, No Bruising, No Other Objective Vitals Vital Signs Date Time Temp Pulse Resp B/P (MAP) Pulse Ox O2 Delivery O2 Flow Rate FiO2 01/28/25 09:35 17 157/72 01/28/25 09:33 17 01/28/25 08:30 97.6 94 97.6 01/27/25 20:00 Room Air* 0 N/A Nasal Cannula* Intake/Output Intake and Output 01/28/25 07:00 Intake Total 1540 ml Balance 1540 ml Intake Oral 1540 ml # Voids 8 General Appearance: Alert, Oriented X3, Cooperative Cardiovascular: Regular rate, Normal S1, Normal S2 Abdomen: Normal bowel sounds, Soft Neuro: Normal speech Medications Current Medications Medications Dose Ordered Sig/Irene Route Start Time Stop Time Status Last Admin Dose Admin Atorvastatin Calcium 10 mg HS PO 01/18/25 22:00 01/27/25 21:06 10 MG Aspirin 81 mg DAILY PO 01/19/25 10:00 01/28/25 09:34 81 MG Levothyroxine Sodium 75 mcg QAM@0600 PO 01/19/25 06:00 01/28/25 05:02 75 MCG Clonidine HCl 0.1 mg Q4HP PRN PO 01/18/25 16:00 01/28/25 00:36 0.1 MG Metoprolol Tartrate 25 mg BID PO 01/18/25 22:00 01/28/25 09:35 25 MG Ondansetron HCl 4 mg Q4HP PRN IV 01/18/25 16:00 Docusate Sodium 100 mg BIDPRN PRN PO 01/18/25 16:00 01/25/25 21:48 100 MG Acetaminophen 650 mg Q6HP PRN PO 01/18/25 16:00 Nitroglycerin 0.4 mg Q5MINP PRN SL 01/18/25 17:30 Morphine Sulfate 2 mg Q4HPRN PRN IV 01/19/25 12:45 01/28/25 09:33 2 MG Alprazolam 0.5 mg BID PRN PO 01/19/25 12:45 01/26/25 18:16 0.5 MG Famotidine 10 mg DAILY PO 01/21/25 10:00 01/28/25 09:33 10 MG Lisinopril 20 mg DAILY PO 01/22/25 10:00 01/28/25 09:34 20 MG Cefepime HCl 50 ml @ 12.5 mls/hr Q12HR IV 01/26/25 14:00 01/28/25 09:32 12.5 MLS/HR Sodium Chloride 10 ml QSHIFT@10,22 IV 01/27/25 22:00 01/28/25 09:49 10 ML Laboratory Results Laboratory Tests 01/20/25 04:44 Urinalysis Test 01/18/25 19:05 Urine Color Light-yellow (Yellow) Urine Clarity Clear (Clear) Urine pH 6.0 (5.0-9.0) Urine Specific [place] 1.025 (1.001-1.035) Urine Protein 1+ (Negative) H Urine Ketones Negative (Negative) Urine Blood Negative /uL (Negative) Urine Nitrite Negative (Negative) Urine Bilirubin Negative (Negative) Urine Urobilinogen Normal mg/dL (Negative) Urine Leukocyte Esterase Negative /uL (Negative) Urine RBC <1 /hpf (0 - 4) Urine Microscopic WBC < 1 /HPF (0-5) Urine Squamous Epithelial Cells Few /hpf (<5) Urine Bacteria None seen /hpf (None Seen) Urine Yeast (Budding) Occasional /hpf (None Urine Glucose Normal mg/dL (Normal) Microbiology Microbiology Date/Time Source Procedure Growth Status 01/20/25 09:50 Knee Fluid Gram Stain - Final Complete 01/20/25 09:50 Body Fluid Culture - Final Pseudomonas aeruginosa Complete Labs and/or images reviewed: Labs reviewed by me Assessment/Plan Assessment/Plan #1 right knee effusion/pain ? infected:status post I& D, iv rocephin #2 anxiety #3 anemia #4 cad #5 htn #6 hypothyroidism #7 chronic diastolic heart failure #8 hyperlipidemia 01/23/2025 Ortho plans for I&D awaiting final culture and sensitivity 01/24/2025 aspiration culture grew P, aeruginosa ortho to to I&D this week pain is controlled 01/26/2025 Continue current management. I and D by ortho done, wound vac place. Continue pain meds. 01/27/2025 Continue current management. Waiting for ID specialist on IV antibiotic as outpatient, and duration of treatment. PICC line placement. Continue pain meds. 01/28/2025: Continue current management. Still waiting for ID specialist on IV antibiotic as outpatient, and duration of treatment. PICC line placement done. Continue pain meds. Continue wound vac. This medical document was created using an electronic medical record system with [employer] computerized dictation system. Although this document has been carefully reviewed, there may still be some phonetic and typographical errors. These areas are purely typographical due to imperfections of the software programs, and do not reflect any compromise in the patient's medical care. Plan discussed with: Patient Date of Service: Jan 28, 2025 Billing Provider: GARCÍA CONWAY MD Common Visit Codes: [id number] INP/OBS CARE(HIGH) GARCÍA CONWAY MD Jan 28, 2025 11:44
[2025-01-28] MEDS: DOCUSATE SOD 100 MG CAP PO SCH (21:48)
[2025-01-28] MEDS: HYDROcodone-ACET 7.5/325MG TAB PO PRN (21:48)
[2025-01-29] VITALS (8 sets, daily range): BP systolic 112–194; BP diastolic 55–92; PULSE 50–72; RESP 16–18; TEMP 97.4–98.3; O2SAT 95–97
[2025-01-29] MEDS ORDERED: MORPHINE SULFATE INJ 2 MG/ml SYRG IM ONE (01:30)
[2025-01-29] MEDS: MORPHINE SULFATE INJ 2 MG/ml SYRG IV ONE (01:49)
[2025-01-29 06:58] LABS: Nucleated Red Blood Cells % 0.1 %
[2025-01-29 06:59] LABS: Hematocrit 24.3 % (36.0-46.0); Hemoglobin 8.6 g/dL (12.2-16.2); Mean Corpuscular Hemoglobin 28.8 pg (28.0-32.0); Mean Corpuscular Volume 81.5 fL (80.0-100.0)
[2025-01-29 07:06] LABS: Anion Gap 9 (5-15); Carbon Dioxide 26 mmol/L (20-31); Chloride 100 mmol/L (98-107); Potassium 3.9 mmol/L (3.5-5.1); Sodium 135 mmol/L (136-145)
[2025-01-29 07:07] LABS: Calcium 9.2 mg/dL (8.7-10.4)
[2025-01-29 07:12] LABS: BUN/Creatinine Ratio 19.2 (10.0-20.0); Blood Urea Nitrogen 14 mg/dL (9-23); Glucose 93 mg/dL (74-106)
[2025-01-29] MEDS: POLYETHYLENE GLYCOL 17 GM PWDR PO PRN (09:49)
--- NOTE | 2025-01-29 15:17 | DVHPN2 ---
Progress Note - Dictate Date Seen: Jan 29, 2025 Medical Necessity Reason Pt with a Central, PICC or Fol: No Subjective NOW WITH KNEE EFFUSION HX OF SEPTIC JOINT S/P EXPLANTATION OF RIGHT KNEE PROSTHESIS WITH SPACERS NOW WITH CONFUSION METABOLIC ENCEPHALOPATHY SEVERE OSTEOARTHRITIS RIGHT KNEE EFFUSION LEUKOCYTOSIS ANEMIA PMH ORGANIC HEART DISEASE HTN CAD WITH HX OF PTCA STENT HX OF CHF HRpEF / DIASTOLIC AFIB HYPERCOAGULABLE STATE HYPOKALEMIA SEVERE CACHEXIA HYPERCALCEMIA SEPTIC JOINT vital signs Vital Sign Date Time Temp Pulse Resp B/P (MAP) Pulse Ox O2 Delivery O2 Flow Rate FiO2 01/29/25 13:00 97.4 57 16 112/58 (76) 97 97.4 01/29/25 08:00 Room Air* 0 21 Total Intake and Output 01/28/25 01/28/25 01/29/25 15:00 23:00 07:00 Intake Total 504 ml 1060 ml Balance 504 ml 1060 ml medications Current Medications Medications Dose Ordered Sig/Irene Route Start Time Stop Time Status Last Admin Dose Admin Atorvastatin Calcium 10 mg HS PO 01/18/25 22:00 01/28/25 21:48 10 MG Aspirin 81 mg DAILY PO 01/19/25 10:00 01/29/25 09:48 81 MG Levothyroxine Sodium 75 mcg QAM@0600 PO 01/19/25 06:00 01/29/25 06:39 75 MCG Clonidine HCl 0.1 mg Q4HP PRN PO 01/18/25 16:00 01/29/25 09:47 0.1 MG Metoprolol Tartrate 25 mg BID PO 01/18/25 22:00 01/29/25 09:49 25 MG Ondansetron HCl 4 mg Q4HP PRN IV 01/18/25 16:00 Acetaminophen 650 mg Q6HP PRN PO 01/18/25 16:00 Nitroglycerin 0.4 mg Q5MINP PRN SL 01/18/25 17:30 Alprazolam 0.5 mg BID PRN PO 01/19/25 12:45 01/29/25 06:39 0.5 MG Famotidine 10 mg DAILY PO 01/21/25 10:00 01/29/25 09:48 10 MG Lisinopril 20 mg DAILY PO 01/22/25 10:00 01/29/25 09:48 20 MG Cefepime HCl 50 ml @ 12.5 mls/hr Q12HR IV 01/26/25 14:00 01/29/25 09:49 12.5 MLS/HR Sodium Chloride 10 ml QSHIFT@10,22 IV 01/27/25 22:00 01/29/25 09:54 10 ML Docusate Sodium 100 mg BID PO 01/28/25 22:00 01/29/25 09:47 100 MG Acetaminophen/ Hydrocodone Bitart 1 tab Q8HP PRN PO 01/28/25 20:45 01/29/25 10:03 1 TAB Polyethylene Glycol 17 gm DAILYPRN PRN PO 01/29/25 08:00 01/29/25 09:49 17 GM objective HEENT: Head is atraumatic normocephalic, eyes PERRLA, ENT oropharynx moist and clear, neck supple, no tenderness, trachea midline, no masses no JVD. Chest: Denies chest pain, no diaphoresis, no mass adenopathy, no tenderness. Cardiac: Regular rate and rhythm, S1-S2 normal, no murmurs, no rubs or gallops. Pulmonary: No shortness of breath, lungs are clear to auscultation bilaterally, no wheezing, no rales or rhonchi. Abdomen: Soft, tender, nondistended, no masses, bowel sounds positive. Genitourinary: Denies dysuria, no urinary frequency, no hematuria. Skin: Skin warm and dry to touch no rash or lesion, no ulceration. Extremities: No clubbing, no edema, no tenderness, no varicosity. Neurologic: Grossly intact, no new focal motor deficit, no numbness or tingling. 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 NOW WITH CONFUSION METABOLIC ENCEPHALOPATHY SEVERE OSTEOARTHRITIS RIGHT KNEE EFFUSION LEUKOCYTOSIS ANEMIA PMH ORGANIC HEART DISEASE HTN CAD WITH HX OF PTCA STENT HX OF CHF HRpEF / DIASTOLIC AFIB HYPERCOAGULABLE STATE HYPOKALEMIA SEVERE CACHEXIA HYPERCALCEMIA ANEMIA REACTIVE THROMBOCYTOSIS Assessment/Plan ARTHROCENTESIS CXR OF FLUID CONSIDER OPEN DEBRIDEMENT IF CONTINUED INFECTION NOW REQUIRE OPEN DEBRIDEMENT OF RIGHT NEWS EPOGEN PHYSICAL THERAPY WROTE FOR EPOGEN BUT PHARMACY HAS NOT GIVEN THE PT THE ORDERS WRITTEN IF EPOGEN IS NOT GIVEN PT MAY REQUIRE TRANSFUSION INSTEAD Dietary Evaluation Review Comments: Continue current plan of care Expected Outcomes/Goals: To meet 75% estimated needs fu 3-5 days Plan discussed with: Patient ANISH DIAZ MD Jan 29, 2025 15:17
[2025-01-29] MEDS: MORPHINE SULFATE INJ 2 MG/ml SYRG IV PRN (17:30)
--- NOTE | 2025-01-29 18:14 | DVHPN2 ---
Consult Progress Note Date Seen: Jan 27, 2025 Subjective Patient reports: Other (patients white count continues to improve as well as thrombocytosis which has come down to 696 ) Objective vital signs Vital Sign Date Time Temp Pulse Resp B/P (MAP) Pulse Ox O2 Delivery O2 Flow Rate FiO2 01/29/25 17:04 97.4 50 16 136/67 (90) 97 97.4 01/29/25 08:00 Room Air* 0 21 Total Intake and Output 01/28/25 01/28/25 01/29/25 15:00 23:00 07:00 Intake Total 504 ml 1060 ml Balance 504 ml 1060 ml medications Current Medications Medications Dose Ordered Sig/Irene Route Start Time Stop Time Status Last Admin Dose Admin Atorvastatin Calcium 10 mg HS PO 01/18/25 22:00 01/28/25 21:48 10 MG Aspirin 81 mg DAILY PO 01/19/25 10:00 01/29/25 09:48 81 MG Levothyroxine Sodium 75 mcg QAM@0600 PO 01/19/25 06:00 01/29/25 06:39 75 MCG Clonidine HCl 0.1 mg Q4HP PRN PO 01/18/25 16:00 01/29/25 09:47 0.1 MG Metoprolol Tartrate 25 mg BID PO 01/18/25 22:00 01/29/25 09:49 25 MG Ondansetron HCl 4 mg Q4HP PRN IV 01/18/25 16:00 Acetaminophen 650 mg Q6HP PRN PO 01/18/25 16:00 Nitroglycerin 0.4 mg Q5MINP PRN SL 01/18/25 17:30 Alprazolam 0.5 mg BID PRN PO 01/19/25 12:45 01/29/25 06:39 0.5 MG Famotidine 10 mg DAILY PO 01/21/25 10:00 01/29/25 09:48 10 MG Lisinopril 20 mg DAILY PO 01/22/25 10:00 01/29/25 09:48 20 MG Cefepime HCl 50 ml @ 12.5 mls/hr Q12HR IV 01/26/25 14:00 01/29/25 09:49 12.5 MLS/HR Sodium Chloride 10 ml QSHIFT@10,22 IV 01/27/25 22:00 01/29/25 09:54 10 ML Docusate Sodium 100 mg BID PO 01/28/25 22:00 01/29/25 09:47 100 MG Polyethylene Glycol 17 gm DAILYPRN PRN PO 01/29/25 08:00 01/29/25 09:49 17 GM Morphine Sulfate 2 mg Q6HPRN PRN IV 01/29/25 17:15 Acetaminophen/ Hydrocodone Bitart 1 tab Q6HP PRN PO 01/29/25 17:15 Physical Exam: General: NAD Neck: Supple. No masses. HEENT: PERRL. Normal lids and conjunctiva. Moist mucous membranes. Oropharynx without lesions, exudates or excessive erythema. Normal appearance of the external aspects of the nose and ears. Heart: Regular rhythm, normal rate. No murmur. No lower extremity edema. Lungs: Normal respiratory effort. Clear to auscultation bilaterally. No wheezes. No crackles. Abdomen: Soft. Non-tender. Non-distended. No masses or abdominal hernia. Msk: Right knee swelling and tenderness. No digital cyanosis. Normal strength and tone in all 4 limbs. Skin: Warm and dry, no rashes. Neuro: Alert. No facial droop or slurred speech. Extra-ocular movements intact. Sensation intact to soft touch in all 4 limbs. Psych: Appropriate mood. Full affect. Oriented to person, place, time, and situation. 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 female with a past medical history of anxiety, congestive heart failure, depression, thyroid disease, and hypertension, who presents following a fall onto her right knee (site of a total knee replacement performed 4 months ago). Over the past month, she has experienced persistent right knee pain, swelling, and difficulty with ambulation. She was found to have a markedly elevated platelet count (peaked at 848), anemia (hemoglobin 8.7), and a white blood cell count initially elevated at 10.9 but improved to 7.7. Her right knee has a large effusion; aspiration grew de la cruz- sensitive Pseudomonas aeruginosa. She underwent operative debridement/irrigation with the placement of a wound vac and antibiotic spacer (tobramycin/gentamicin beads). No fevers noted currently. CT and ultrasound imaging identified large right knee effusion, soft tissue calcifications, and thin tissue likely consistent with dehiscence. Chest X-ray shows mild interstitial prominence and findings that may indicate underlying pulmonary vascular congestion or emphysematous changes. 01/26: clinically stable s/p operative debridement of the left knee . likely confused in the setting of anesthesia use 01/27: patient is refusing labs , piccline has been placed and functional Current Plan: - given pseudomonas is de la cruz sensitive would treat with IV cefepime for 6 weeks 3x a day \-- Continue IV cefepime 6g daily continuously via PICC line for 6 weeks for prosthetic joint infection \-- Infectious disease follow-up for eventual transition to oral levofloxacin (noted fluoroquinolone sensitivity) after completion of planned IV therapy \-- Wound care and post-operative follow-up with Dr. Fitzgerald \-- Maintain wound vac, monitor for signs of persistent infection \-- Monitor CBC for anemia and thrombocytosis \-- Symptom monitoring: pain, drainage, fevers \-- CHF, hypertension, thyroid disease, anxiety, and depression management as per primary Isolation Precautions: Standard Plan discussed with: Other Dietary Evaluation Review Comments: Continue current plan of care Expected Outcomes/Goals: To meet 75% estimated needs fu 3-5 days ADELINA OROZCO MD Jan 29, 2025 18:14
--- NOTE | 2025-01-29 18:15 | DVHPN2 ---
Consult Progress Note Date Seen: Jan 29, 2025 Subjective Patient reports: Other (wound vac is functional and draining fluid minimally , swelling has improved ) Objective vital signs Vital Sign Date Time Temp Pulse Resp B/P (MAP) Pulse Ox O2 Delivery O2 Flow Rate FiO2 01/29/25 17:04 97.4 50 16 136/67 (90) 97 97.4 01/29/25 08:00 Room Air* 0 21 Total Intake and Output 01/28/25 01/28/25 01/29/25 15:00 23:00 07:00 Intake Total 504 ml 1060 ml Balance 504 ml 1060 ml medications Current Medications Medications Dose Ordered Sig/Irene Route Start Time Stop Time Status Last Admin Dose Admin Atorvastatin Calcium 10 mg HS PO 01/18/25 22:00 01/28/25 21:48 10 MG Aspirin 81 mg DAILY PO 01/19/25 10:00 01/29/25 09:48 81 MG Levothyroxine Sodium 75 mcg QAM@0600 PO 01/19/25 06:00 01/29/25 06:39 75 MCG Clonidine HCl 0.1 mg Q4HP PRN PO 01/18/25 16:00 01/29/25 09:47 0.1 MG Metoprolol Tartrate 25 mg BID PO 01/18/25 22:00 01/29/25 09:49 25 MG Ondansetron HCl 4 mg Q4HP PRN IV 01/18/25 16:00 Acetaminophen 650 mg Q6HP PRN PO 01/18/25 16:00 Nitroglycerin 0.4 mg Q5MINP PRN SL 01/18/25 17:30 Alprazolam 0.5 mg BID PRN PO 01/19/25 12:45 01/29/25 06:39 0.5 MG Famotidine 10 mg DAILY PO 01/21/25 10:00 01/29/25 09:48 10 MG Lisinopril 20 mg DAILY PO 01/22/25 10:00 01/29/25 09:48 20 MG Cefepime HCl 50 ml @ 12.5 mls/hr Q12HR IV 01/26/25 14:00 01/29/25 09:49 12.5 MLS/HR Sodium Chloride 10 ml QSHIFT@10,22 IV 01/27/25 22:00 01/29/25 09:54 10 ML Docusate Sodium 100 mg BID PO 01/28/25 22:00 01/29/25 09:47 100 MG Polyethylene Glycol 17 gm DAILYPRN PRN PO 01/29/25 08:00 01/29/25 09:49 17 GM Morphine Sulfate 2 mg Q6HPRN PRN IV 01/29/25 17:15 Acetaminophen/ Hydrocodone Bitart 1 tab Q6HP PRN PO 01/29/25 17:15 Physical Exam: General: NAD Neck: Supple. No masses. HEENT: PERRL. Normal lids and conjunctiva. Moist mucous membranes. Oropharynx without lesions, exudates or excessive erythema. Normal appearance of the external aspects of the nose and ears. Heart: Regular rhythm, normal rate. No murmur. No lower extremity edema. Lungs: Normal respiratory effort. Clear to auscultation bilaterally. No wheezes. No crackles. Abdomen: Soft. Non-tender. Non-distended. No masses or abdominal hernia. Msk: Right knee swelling and tenderness. No digital cyanosis. Normal strength and tone in all 4 limbs. Skin: Warm and dry, no rashes. Neuro: Alert. No facial droop or slurred speech. Extra-ocular movements intact. Sensation intact to soft touch in all 4 limbs. Psych: Appropriate mood. Full affect. Oriented to person, place, time, and situation. 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 female with a past medical history of anxiety, congestive heart failure, depression, thyroid disease, and hypertension, who presents following a fall onto her right knee (site of a total knee replacement performed 4 months ago). Over the past month, she has experienced persistent right knee pain, swelling, and difficulty with ambulation. She was found to have a markedly elevated platelet count (peaked at 848), anemia (hemoglobin 8.7), and a white blood cell count initially elevated at 10.9 but improved to 7.7. Her right knee has a large effusion; aspiration grew de la cruz- sensitive Pseudomonas aeruginosa. She underwent operative debridement/irrigation with the placement of a wound vac and antibiotic spacer (tobramycin/gentamicin beads). No fevers noted currently. CT and ultrasound imaging identified large right knee effusion, soft tissue calcifications, and thin tissue likely consistent with dehiscence. Chest X-ray shows mild interstitial prominence and findings that may indicate underlying pulmonary vascular congestion or emphysematous changes. 01/26: clinically stable s/p operative debridement of the left knee . likely confused in the setting of anesthesia use 01/27: patient is refusing labs , piccline has been placed and functional 01/28: has pain in left knee 01/29: patient will need 6 weeks IV antibiotics followed by several months of oral antibiotics given proximity of infection to prosthesis Current Plan: - given pseudomonas is de la cruz sensitive would treat with IV cefepime for 6 weeks 3x a day \-- Continue IV cefepime 6g daily continuously via PICC line for 6 weeks for prosthetic joint infection \-- Infectious disease follow-up for eventual transition to oral levofloxacin (noted fluoroquinolone sensitivity) after completion of planned IV therapy \-- Wound care and post-operative follow-up with Dr. Fitzgerald \-- Maintain wound vac, monitor for signs of persistent infection \-- Monitor CBC for anemia and thrombocytosis \-- Symptom monitoring: pain, drainage, fevers \-- CHF, hypertension, thyroid disease, anxiety, and depression management as per primary Isolation Precautions: Standard Plan discussed with: Other Dietary Evaluation Review Comments: Continue current plan of care Expected Outcomes/Goals: To meet 75% estimated needs fu 3-5 days ADELINA OROZCO MD Jan 29, 2025 18:15
--- NOTE | 2025-01-29 19:20 | DVHPN2 ---
Subjective Patient is seen at bedside, doing well. Very anxious. Reviewed: Care Plan, H&P, Labs, Medications, Previous Orders Changes from previous H/P or p: No Changes General: Per HPI Eyes: No Pain, No Vision change, No Conjunctivae inflammation, No Eyelid inflammation, No Other, No Redness ENT: No Ear pain, No Ear discharge, No Nose pain, No Nose discharge, No Nose congestion, No Mouth pain, No Mouth swelling, No Throat pain, No Throat swelling, No Other Cardiovascular: No Chest Pain, No Palpitations, No Orthopnea, No Paroxysmal Noc. Dyspnea, No Edema, No Lt Headedness, No Other Respiratory: No Cough, No Dry, No Shortness of breath, No SOB with excertion, No Wheezing, No Hemoptysis, No Pleuritic Pain, No Sputum, No Other Gastrointestinal: No Nausea, No Vomiting, No Abdominal Pain, No Diarrhea, No Constipation, No Melena, No Hematochezia, No Other Genitourinary: No Dysuria, No Frequency, No Incontinence, No Hematuria, No Retention, No Other Musculoskeletal: other (Joint pain, right knee); No neck pain, No shoulder pain, No arm pain, No back pain, No hand pain, No leg pain, No foot pain Skin: No Rash, No Lesions, No Jaundice, No Bruising, No Other Objective Vitals Vital Signs Date Time Temp Pulse Resp B/P (MAP) Pulse Ox O2 Delivery O2 Flow Rate FiO2 01/29/25 17:30 50 18 136/67 01/29/25 17:04 97.4 97 97.4 01/29/25 08:00 Room Air* 0 21 Intake/Output Intake and Output 01/29/25 07:00 Intake Total 1564 ml Balance 1564 ml Intake Oral 1564 ml # Voids 8 General Appearance: Alert, Oriented X3, Cooperative Cardiovascular: Regular rate, Normal S1, Normal S2 Abdomen: Normal bowel sounds, Soft Neuro: Normal speech Medications Current Medications Medications Dose Ordered Sig/Irene Route Start Time Stop Time Status Last Admin Dose Admin Atorvastatin Calcium 10 mg HS PO 01/18/25 22:00 01/28/25 21:48 10 MG Aspirin 81 mg DAILY PO 01/19/25 10:00 01/29/25 09:48 81 MG Levothyroxine Sodium 75 mcg QAM@0600 PO 01/19/25 06:00 01/29/25 06:39 75 MCG Clonidine HCl 0.1 mg Q4HP PRN PO 01/18/25 16:00 01/29/25 09:47 0.1 MG Metoprolol Tartrate 25 mg BID PO 01/18/25 22:00 01/29/25 09:49 25 MG Ondansetron HCl 4 mg Q4HP PRN IV 01/18/25 16:00 Acetaminophen 650 mg Q6HP PRN PO 01/18/25 16:00 Nitroglycerin 0.4 mg Q5MINP PRN SL 01/18/25 17:30 Alprazolam 0.5 mg BID PRN PO 01/19/25 12:45 01/29/25 06:39 0.5 MG Famotidine 10 mg DAILY PO 01/21/25 10:00 01/29/25 09:48 10 MG Lisinopril 20 mg DAILY PO 01/22/25 10:00 01/29/25 09:48 20 MG Cefepime HCl 50 ml @ 12.5 mls/hr Q12HR IV 01/26/25 14:00 01/29/25 09:49 12.5 MLS/HR Sodium Chloride 10 ml QSHIFT@10,22 IV 01/27/25 22:00 01/29/25 09:54 10 ML Docusate Sodium 100 mg BID PO 01/28/25 22:00 01/29/25 09:47 100 MG Polyethylene Glycol 17 gm DAILYPRN PRN PO 01/29/25 08:00 01/29/25 09:49 17 GM Morphine Sulfate 2 mg Q6HPRN PRN IV 01/29/25 17:15 01/29/25 17:30 2 MG Acetaminophen/ Hydrocodone Bitart 1 tab Q6HP PRN PO 01/29/25 17:15 Laboratory Results Laboratory Tests 01/29/25 06:23 Chemistry Test 01/29/25 06:23 Calcium Level 9.2 mg/dL (8.7-10.4) Urinalysis Test 01/18/25 19:05 Urine Color Light-yellow (Yellow) Urine Clarity Clear (Clear) Urine pH 6.0 (5.0-9.0) Urine Specific [place] 1.025 (1.001-1.035) Urine Protein 1+ (Negative) H Urine Ketones Negative (Negative) Urine Blood Negative /uL (Negative) Urine Nitrite Negative (Negative) Urine Bilirubin Negative (Negative) Urine Urobilinogen Normal mg/dL (Negative) Urine Leukocyte Esterase Negative /uL (Negative) Urine RBC <1 /hpf (0 - 4) Urine Microscopic WBC < 1 /HPF (0-5) Urine Squamous Epithelial Cells Few /hpf (<5) Urine Bacteria None seen /hpf (None Seen) Urine Yeast (Budding) Occasional /hpf (None Urine Glucose Normal mg/dL (Normal) Microbiology Microbiology Date/Time Source Procedure Growth Status 01/20/25 09:50 Knee Fluid Gram Stain - Final Complete 01/20/25 09:50 Body Fluid Culture - Final Pseudomonas aeruginosa Complete Labs and/or images reviewed: Labs reviewed by me, Image(s) reviewed by me Assessment/Plan Assessment/Plan 01/23/2025 Ortho plans for I&D awaiting final culture and sensitivity 01/24/2025 aspiration culture grew P, aeruginosa ortho to to I&D this week pain is controlled 01/26/2025 Continue current management. I and D by ortho done, wound vac place. Continue pain meds. 01/27/2025 Continue current management. Waiting for ID specialist on IV antibiotic as outpatient, and duration of treatment. PICC line placement. Continue pain meds. 01/28/2025: Continue current management. Still waiting for ID specialist on IV antibiotic as outpatient, and duration of treatment. PICC line placement done. Continue pain meds. Continue wound vac. 01/29/2025: There is a discharge plan for this patient, ID is on board there is broad-spectrum antibiotics to be given at home but not enough support at home. She lives by herself and has home health or home care every so often coming and checking on her. 1 of these times she was found down after many hours. Patient has also run out of her SNF rehab days. There is a lot of social issues that are unresolved. ID needs to re-evaluate antibiotics because at home patient will not be able to get q.8 antibiotics. She likely we will need once daily antibiotics and needs home safety eval and possibly needs to only ambulate in a wheelchair at home. No 6 discharge plan can not discharge we will have to wait for Saturday for social discussion. Continue antibiotics meanwhile. I have restarted pain control,. Her pain is mostly back and she needs to be out of bed during daytime. Patient has loss of grievances and very high anxiety, we will continue p.r.n. Xanax. I think the patient needs group home [facility]. Diagnosis: #1 right knee effusion/pain ? infected:status post I& D, iv rocephin #2 anxiety #3 anemia #4 cad #5 htn #6 hypothyroidism #7 chronic diastolic heart failure #8 hyperlipidemia Plan: -cefepime, -Xanax PRN -continue aspirin, Lipitor, clonidine p.r.n., famotidine 10 p.o. daily, levothyroxine 75 mcg, lisinopril 20, Lopressor 25 b.i.d., -continue prn pain control morphine 2 mg q.6, Superior 10 mg q.6, Tylenol 1st line, Diet cardiac Med surge Full code Plan discussed with: Patient My Orders Orders - JOSLYN ESCOBEDO MD Procedure Category Date Status Time Morphine Sulfate PHA 01/29/25 In Process Injection 17:15 Hydrocodone-Acet PHA 01/29/25 In Process 10/325mg Tab (Superior 17:15 Date of Service: Jan 29, 2025 Billing Provider: JOSLYN ESCOBEDO MD Common Visit Codes: [id number] INP/OBS CARE(HIGH) JOSLYN ESCOBEDO MD Jan 29, 2025 19:20
[2025-01-29] MEDS: HYDROcodone-ACET 10/325MG TAB PO PRN (20:25)
[2025-01-30] VITALS (7 sets, daily range): BP systolic 130–148; BP diastolic 60–70; PULSE 50–64; RESP 16–18; TEMP 97.7–99; O2SAT 92–98
--- NOTE | 2025-01-30 14:19 | DVHPN2 ---
Subjective Cross covering for [facility] Hospitalist today. Patient's chart is reviewed and patient is seen and evaluated. Discussed with the patient as well as nurse at bedside regarding care plan. Essentially she is waiting for IV antibiotics arranged for her knee infection. Patient has a PICC line. However per disability case manager/social Service apparently she ran out of her a skilled bed days. Infectious Disease recommended 4-6 weeks of IV antibiotics either with the Zosyn or cefepime. Currently she is on cefepime while in the hospital. Apparently patient has a caregiver and home health in the past. Home health apparently can only visit her once a day to administer IV antibiotics. Reviewed: Care Plan, H&P, Labs, Medications, Previous Orders Changes from previous H/P or p: No Changes General: Per HPI Eyes: No Pain, No Vision change, No Conjunctivae inflammation, No Eyelid inflammation, No Other, No Redness ENT: No Ear pain, No Ear discharge, No Nose pain, No Nose discharge, No Nose congestion, No Mouth pain, No Mouth swelling, No Throat pain, No Throat swelling, No Other Cardiovascular: No Chest Pain, No Palpitations, No Orthopnea, No Paroxysmal Noc. Dyspnea, No Edema, No Lt Headedness, No Other Respiratory: No Cough, No Dry, No Shortness of breath, No SOB with excertion, No Wheezing, No Hemoptysis, No Pleuritic Pain, No Sputum, No Other Gastrointestinal: No Nausea, No Vomiting, No Abdominal Pain, No Diarrhea, No Constipation, No Melena, No Hematochezia, No Other Genitourinary: No Dysuria, No Frequency, No Incontinence, No Hematuria, No Retention, No Other Musculoskeletal: other (Joint pain, right knee); No neck pain, No shoulder pain, No arm pain, No back pain, No hand pain, No leg pain, No foot pain Skin: No Rash, No Lesions, No Jaundice, No Bruising, No Other Objective Vitals Vital Signs Date Time Temp Pulse Resp B/P (MAP) Pulse Ox O2 Delivery O2 Flow Rate FiO2 01/30/25 10:13 64 123/62 01/30/25 09:00 98.0 16 98 98.0 01/30/25 08:00 Room Air* 0 21 Intake/Output Intake and Output 01/30/25 07:00 Intake Total 2150 ml Balance 2150 ml Intake Oral 2100 ml IV Total 50 ml # Voids 9 Exam Elderly female sitting in the chair. Hard of hearing. Otherwise no distress. Asking when she can go home. Heart regular rate and rhythm S1-S2. Lungs without rales wheezes. Abdomen soft positive bowel sounds. Extremities no edema. Right knee is covered with a dressing. No erythema or edema noted. Positive distal pedal pulses. General Appearance: Alert, Oriented X3, Cooperative Medications Current Medications Medications Dose Ordered Sig/Irene Route Start Time Stop Time Status Last Admin Dose Admin Atorvastatin Calcium 10 mg HS PO 01/18/25 22:00 01/29/25 23:16 10 MG Aspirin 81 mg DAILY PO 01/19/25 10:00 01/30/25 09:13 81 MG Levothyroxine Sodium 75 mcg QAM@0600 PO 01/19/25 06:00 01/30/25 05:50 75 MCG Clonidine HCl 0.1 mg Q4HP PRN PO 01/18/25 16:00 01/29/25 09:47 0.1 MG Metoprolol Tartrate 25 mg BID PO 01/18/25 22:00 01/30/25 09:13 25 MG Ondansetron HCl 4 mg Q4HP PRN IV 01/18/25 16:00 Acetaminophen 650 mg Q6HP PRN PO 01/18/25 16:00 Nitroglycerin 0.4 mg Q5MINP PRN SL 01/18/25 17:30 Alprazolam 0.5 mg BID PRN PO 01/19/25 12:45 01/30/25 09:12 0.5 MG Famotidine 10 mg DAILY PO 01/21/25 10:00 01/30/25 09:13 10 MG Lisinopril 20 mg DAILY PO 01/22/25 10:00 01/30/25 09:13 20 MG Cefepime HCl 50 ml @ 12.5 mls/hr Q12HR IV 01/26/25 14:00 01/30/25 09:14 12.5 MLS/HR Sodium Chloride 10 ml QSHIFT@10,22 IV 01/27/25 22:00 01/30/25 09:13 10 ML Docusate Sodium 100 mg BID PO 01/28/25 22:00 01/30/25 09:13 100 MG Polyethylene Glycol 17 gm DAILYPRN PRN PO 01/29/25 08:00 01/29/25 23:45 17 GM Morphine Sulfate 2 mg Q6HPRN PRN IV 01/29/25 17:15 01/30/25 04:12 2 MG Acetaminophen/ Hydrocodone Bitart 1 tab Q6HP PRN PO 01/29/25 17:15 01/30/25 09:12 1 TAB Laboratory Results Laboratory Tests 01/29/25 06:23 Urinalysis Test 01/18/25 19:05 Urine Color Light-yellow (Yellow) Urine Clarity Clear (Clear) Urine pH 6.0 (5.0-9.0) Urine Specific [place] 1.025 (1.001-1.035) Urine Protein 1+ (Negative) H Urine Ketones Negative (Negative) Urine Blood Negative /uL (Negative) Urine Nitrite Negative (Negative) Urine Bilirubin Negative (Negative) Urine Urobilinogen Normal mg/dL (Negative) Urine Leukocyte Esterase Negative /uL (Negative) Urine RBC <1 /hpf (0 - 4) Urine Microscopic WBC < 1 /HPF (0-5) Urine Squamous Epithelial Cells Few /hpf (<5) Urine Bacteria None seen /hpf (None Seen) Urine Yeast (Budding) Occasional /hpf (None Urine Glucose Normal mg/dL (Normal) Microbiology Microbiology Date/Time Source Procedure Growth Status 01/20/25 09:50 Knee Fluid Gram Stain - Final Complete 01/20/25 09:50 Body Fluid Culture - Final Pseudomonas aeruginosa Complete Labs and/or images reviewed: Labs reviewed by me Assessment/Plan Assessment/Plan Continue current antibiotics. We will try to arrange for continuous infusion pump with IV cefepime so that home health can start it once a day and run the infusion over 24 hours as recommended by Infectious Disease. Once this is set up through social Service patient can be discharged home with home health and safety evaluation at home. Discussed with the nurse and patient. Meantime continue rest of supportive care and treatment as she is on while in the hospital. Plan discussed with: Patient, Other Problem List: (1) Knee effusion, right (2) General weakness (3) Prosthetic joint infection (4) Leukocytosis (5) Thrombocytosis (6) Anemia, unspecified Date of Service: Jan 30, 2025 Billing Provider: HARSH SCHNEIDER MD Common Visit Codes: [id number] INP/OBS CARE(MOD) HARSH SCHNEIDER MD Jan 30, 2025 14:19
[2025-01-30] MEDS: ACETAMINOPHEN 325 MG TAB PO PRN (15:19)
--- NOTE | 2025-01-30 23:26 | DVHPN2 ---
Consult Progress Note Date Seen: Jan 30, 2025 Subjective Patient reports: Feels better (patient anxious about knee infection. recommend continuous IV infusion (cefepime 6g every 24 hours or Zosyn 10.125g every 24 hours) for six weeks. will need oral antibiotics thereafter) Objective vital signs Vital Sign Date Time Temp Pulse Resp B/P (MAP) Pulse Ox O2 Delivery O2 Flow Rate FiO2 01/30/25 21:51 58 148/70 01/30/25 21:00 17 01/30/25 20:00 Room Air* 0 21 01/30/25 17:13 99.0 97 99.0 Total Intake and Output 01/29/25 01/29/25 01/30/25 15:00 23:00 07:00 Intake Total 1780 ml 370 ml Balance 1780 ml 370 ml medications Current Medications Medications Dose Ordered Sig/Irene Route Start Time Stop Time Status Last Admin Dose Admin Atorvastatin Calcium 10 mg HS PO 01/18/25 22:00 01/30/25 21:51 10 MG Aspirin 81 mg DAILY PO 01/19/25 10:00 01/30/25 09:13 81 MG Levothyroxine Sodium 75 mcg QAM@0600 PO 01/19/25 06:00 01/30/25 05:50 75 MCG Clonidine HCl 0.1 mg Q4HP PRN PO 01/18/25 16:00 01/29/25 09:47 0.1 MG Metoprolol Tartrate 25 mg BID PO 01/18/25 22:00 01/30/25 21:51 25 MG Ondansetron HCl 4 mg Q4HP PRN IV 01/18/25 16:00 Acetaminophen 650 mg Q6HP PRN PO 01/18/25 16:00 01/30/25 15:19 650 MG Nitroglycerin 0.4 mg Q5MINP PRN SL 01/18/25 17:30 Alprazolam 0.5 mg BID PRN PO 01/19/25 12:45 01/30/25 21:51 0.5 MG Famotidine 10 mg DAILY PO 01/21/25 10:00 01/30/25 09:13 10 MG Lisinopril 20 mg DAILY PO 01/22/25 10:00 01/30/25 09:13 20 MG Cefepime HCl 50 ml @ 12.5 mls/hr Q12HR IV 01/26/25 14:00 8/2/25 21:53 12.5 MLS/HR Sodium Chloride 10 ml QSHIFT@10,22 IV 01/27/25 22:00 01/30/25 21:56 10 ML Docusate Sodium 100 mg BID PO 01/28/25 22:00 01/30/25 21:51 100 MG Polyethylene Glycol 17 gm DAILYPRN PRN PO 01/29/25 08:00 01/30/25 21:51 17 GM Morphine Sulfate 2 mg Q6HPRN PRN IV 01/29/25 17:15 01/30/25 20:21 2 MG Acetaminophen/ Hydrocodone Bitart 1 tab Q6HP PRN PO 01/29/25 17:15 01/30/25 09:12 1 TAB laboratory and microbiology Laboratory Tests 01/29/25 06:23 Test 01/29/25 06:23 Range/Units Serum Glucose 93 74-106 mg/dL Problem List/Assessment/Plan Problem List/Assessment/Plan ASSESSMENT AND PLAN: ID Problem List: \-- 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 female with a past medical history of anxiety, congestive heart failure, depression, thyroid disease, and hypertension, who presents following a fall onto her right knee (site of a total knee replacement performed 4 months ago). Over the past month, she has experienced persistent right knee pain, swelling, and difficulty with ambulation. She was found to have a markedly elevated platelet count (peaked at 848), anemia (hemoglobin 8.7), and a white blood cell count initially elevated at 10.9 but improved to 7.7. Her right knee has a large effusion; aspiration grew de la cruz- sensitive Pseudomonas aeruginosa. She underwent operative debridement/irrigation with the placement of a wound vac and antibiotic spacer (tobramycin/gentamicin beads). No fevers noted currently. CT and ultrasound imaging identified large right knee effusion, soft tissue calcifications, and thin tissue likely consistent with dehiscence. Chest X-ray shows mild interstitial prominence and findings that may indicate underlying pulmonary vascular congestion or emphysematous changes. 01/26: clinically stable s/p operative debridement of the left knee . likely confused in the setting of anesthesia use 01/27: patient is refusing labs , piccline has been placed and functional 01/28: has pain in left knee 01/29: patient will need 6 weeks IV antibiotics followed by several months of oral antibiotics given proximity of infection to prosthesis Current Plan: - given pseudomonas is de la cruz sensitive would treat with IV cefepime for 6 weeks 3x a day \-- Continue IV cefepime 6g daily continuously via PICC line for 6 weeks for prosthetic joint infection \-- Infectious disease follow-up for eventual transition to oral levofloxacin (noted fluoroquinolone sensitivity) after completion of planned IV therapy \-- Wound care and post-operative follow-up with Dr. Fitzgerald \-- Maintain wound vac, monitor for signs of persistent infection \-- Monitor CBC for anemia and thrombocytosis \-- Symptom monitoring: pain, drainage, fevers \-- CHF, hypertension, thyroid disease, anxiety, and depression management as per primary Isolation Precautions: Standard Plan discussed with: Patient Dietary Evaluation Review Comments: Continue current plan of care Expected Outcomes/Goals: To meet 75% estimated needs fu 3-5 days ADELINA OROZCO MD Jan 30, 2025 23:26
[2025-01-31] VITALS (7 sets, daily range): BP systolic 125–173; BP diastolic 59–96; PULSE 52–77; RESP 16–19; TEMP 97.1–98.2; O2SAT 94–98
--- NOTE | 2025-01-31 20:12 | DVHPN2 ---
Subjective She remains clinically stable. Pending home health and home IV antibiotic arrangement with cefepime continuous infusion. Reviewed: Care Plan, H&P, Labs, Medications, Previous Orders Changes from previous H/P or p: No Changes General: Per HPI Eyes: No Pain, No Vision change, No Conjunctivae inflammation, No Eyelid inflammation, No Other, No Redness ENT: No Ear pain, No Ear discharge, No Nose pain, No Nose discharge, No Nose congestion, No Mouth pain, No Mouth swelling, No Throat pain, No Throat swelling, No Other Cardiovascular: No Chest Pain, No Palpitations, No Orthopnea, No Paroxysmal Noc. Dyspnea, No Edema, No Lt Headedness, No Other Respiratory: No Cough, No Dry, No Shortness of breath, No SOB with excertion, No Wheezing, No Hemoptysis, No Pleuritic Pain, No Sputum, No Other Gastrointestinal: No Nausea, No Vomiting, No Abdominal Pain, No Diarrhea, No Constipation, No Melena, No Hematochezia, No Other Genitourinary: No Dysuria, No Frequency, No Incontinence, No Hematuria, No Retention, No Other Musculoskeletal: other (Joint pain, right knee); No neck pain, No shoulder pain, No arm pain, No back pain, No hand pain, No leg pain, No foot pain Skin: No Rash, No Lesions, No Jaundice, No Bruising, No Other Objective Vitals Vital Signs Date Time Temp Pulse Resp B/P (MAP) Pulse Ox O2 Delivery O2 Flow Rate FiO2 01/31/25 19:58 60 16 133/63 01/31/25 17:00 97.7 98 97.7 01/31/25 08:00 Room Air* 0 21 Intake/Output Intake and Output 01/31/25 07:00 Intake Total 990 ml Balance 990 ml Intake Oral 890 ml IV Total 100 ml # Voids 11 Exam Elderly female sitting in the chair. Hard of hearing. Otherwise no distress. Asking when she can go home. Heart regular rate and rhythm S1-S2. Lungs without rales wheezes. Abdomen soft positive bowel sounds. Extremities no edema. Right knee is covered with a dressing. No erythema or edema noted. Positive distal pedal pulses. General Appearance: Alert, Oriented X3, Cooperative Medications Current Medications Medications Dose Ordered Sig/Irene Route Start Time Stop Time Status Last Admin Dose Admin Atorvastatin Calcium 10 mg HS PO 01/18/25 22:00 8/2/25 21:51 10 MG Aspirin 81 mg DAILY PO 01/19/25 10:00 01/31/25 09:25 81 MG Levothyroxine Sodium 75 mcg QAM@0600 PO 01/19/25 06:00 01/31/25 05:51 75 MCG Clonidine HCl 0.1 mg Q4HP PRN PO 01/18/25 16:00 01/31/25 05:49 0.1 MG Metoprolol Tartrate 25 mg BID PO 01/18/25 22:00 01/31/25 09:30 25 MG Ondansetron HCl 4 mg Q4HP PRN IV 01/18/25 16:00 Acetaminophen 650 mg Q6HP PRN PO 01/18/25 16:00 01/30/25 15:19 650 MG Nitroglycerin 0.4 mg Q5MINP PRN SL 01/18/25 17:30 Alprazolam 0.5 mg BID PRN PO 01/19/25 12:45 01/31/25 09:23 0.5 MG Famotidine 10 mg DAILY PO 01/21/25 10:00 01/31/25 09:24 10 MG Lisinopril 20 mg DAILY PO 01/22/25 10:00 01/31/25 09:24 20 MG Cefepime HCl 50 ml @ 12.5 mls/hr Q12HR IV 01/26/25 14:00 01/31/25 09:30 12.5 MLS/HR Sodium Chloride 10 ml QSHIFT@10,22 IV 01/27/25 22:00 01/31/25 09:25 10 ML Docusate Sodium 100 mg BID PO 01/28/25 22:00 01/31/25 09:23 100 MG Polyethylene Glycol 17 gm DAILYPRN PRN PO 01/29/25 08:00 01/30/25 21:51 17 GM Morphine Sulfate 2 mg Q6HPRN PRN IV 01/29/25 17:15 01/31/25 19:58 2 MG Acetaminophen/ Hydrocodone Bitart 1 tab Q6HP PRN PO 01/29/25 17:15 01/31/25 13:50 1 TAB Laboratory Results Laboratory Tests 01/29/25 06:23 Urinalysis Test 01/18/25 19:05 Urine Color Light-yellow (Yellow) Urine Clarity Clear (Clear) Urine pH 6.0 (5.0-9.0) Urine Specific [place] 1.025 (1.001-1.035) Urine Protein 1+ (Negative) H Urine Ketones Negative (Negative) Urine Blood Negative /uL (Negative) Urine Nitrite Negative (Negative) Urine Bilirubin Negative (Negative) Urine Urobilinogen Normal mg/dL (Negative) Urine Leukocyte Esterase Negative /uL (Negative) Urine RBC <1 /hpf (0 - 4) Urine Microscopic WBC < 1 /HPF (0-5) Urine Squamous Epithelial Cells Few /hpf (<5) Urine Bacteria None seen /hpf (None Seen) Urine Yeast (Budding) Occasional /hpf (None Urine Glucose Normal mg/dL (Normal) Microbiology Microbiology Date/Time Source Procedure Growth Status 01/20/25 09:50 Knee Fluid Gram Stain - Final Complete 01/20/25 09:50 Body Fluid Culture - Final Pseudomonas aeruginosa Complete Assessment/Plan Assessment/Plan No changes to present management. Continue current antibiotics. We will try to arrange for continuous infusion pump with IV cefepime so that home health can start it once a day and run the infusion over 24 hours as recommended by Infectious Disease. Once this is set up through social Service patient can be discharged home with home health and safety evaluation at home. Plan discussed with: Patient, Other Problem List: (1) General weakness (2) Prosthetic joint infection (3) Leukocytosis (4) Anemia, unspecified (5) Generalized weakness (6) Knee effusion, right (7) Thrombocytosis Date of Service: Jan 31, 2025 Billing Provider: MELVIN CARLOS MD Common Visit Codes: [id number] INP/OBS CARE(MOD) HARSH SCHNEIDER MD Jan 31, 2025 20:12
[2025-02-01 05:00] VITALS: BP 141/77; PULSE 58; RESP 18; TEMP 97.5; O2SAT 95
[2025-02-01 08:26] VITALS: PULSE 52; RESP 15; O2SAT 97
[2025-02-01 09:00] VITALS: BP 157/80; PULSE 52; RESP 15; TEMP 97.2; O2SAT 97
--- NOTE | 2025-02-01 12:11 | DVHDS2 ---
Discharge Summary Date of Admission Jan 18, 2025 at 17:18 Date of Discharge: Feb 01, 2025 Labs/Diagnostic Data: Laboratory Results Test 01/29/25 06:23 01/26/25 14:07 01/20/25 09:50 01/20/25 04:44 White Blood Count 8.2 10^3/uL (4.4-10.8) Red Blood Count 2.98 10^6/uL (4.0-5.20) Hemoglobin 8.6 g/dL (12.2-16.2) Hematocrit 24.3 % (36.0-46.0) Mean Corpuscular Volume 81.5 fL (80.0-100.0) Mean Corpuscular Hemoglobin 28.8 pg (28.0-32.0) Mean Corpuscular Hemoglobin Concent 35.3 g/dL (32.0-36.0) Red Cell Distribution Width 17.8 % (11.8-14.3) Platelet Count 696 10^3/uL (140-450) Mean Platelet Volume 5.5 fL (6.9-10.8) Neutrophils (%) (Auto) 66.2 % (37.0-80.0) Lymphocytes (%) (Auto) 14.2 % (10.0-50.0) Monocytes (%) (Auto) 14.9 % (0.0-12.0) Eosinophils (%) (Auto) 4.2 % (0.0-7.0) Basophils (%) (Auto) 0.5 % (0.0-2.0) Neutrophils # (Auto) 5.4 10 ^3/uL (1.6-8.6) Lymphocytes # (Auto) 1.2 10 ^3/uL (0.4-5.4) Monocytes # (Auto) 1.2 10 ^3/uL (0-1.3) Eosinophils # (Auto) 0.3 10 ^3/uL (0-0.8) Basophils # (Auto) 0 10 ^3/uL (0-0.2) Nucleated Red Blood Cells 0.1 % Sodium Level 135 mmol/L (136-145) Potassium Level 3.9 mmol/L (3.5-5.1) Chloride Level 100 mmol/L (98-107) Carbon Dioxide Level 26 mmol/L (20-31) Anion Gap 9 (5-15) Blood Urea Nitrogen 14 mg/dL (9-23) Creatinine 0.73 mg/dL (0.550-1.02) Glomerular Filtration Rate Calc 80 mL/min (>90) BUN/Creatinine Ratio 19.2 (10.0-20.0) Serum Glucose 93 mg/dL (74-106) Calcium Level 9.2 mg/dL (8.7-10.4) Prothrombin Time 11.9 sec (9.3-11.8) Prothrombin Time INR 1.14 (0.9-1.15) Body Fluid Source Synovial fluid Body Fluid pH 9.0 Body Fluid WBC (Manual) 69866 CUMM (0-200) Body Fluid RBC (Manual) 38564 CUMM (0-2000) Body Fluid Mononuclear Cells 12 % Body Fluid Polymorphonuclear Cells 88 % (0-25) Body Fluid Glucose 3 mg/dL (.) Platelet Estimate Markedly increased Activated Partial Thromboplast Time 30.2 SEC (24.5-34.5) Test 01/19/25 06:43 01/18/25 19:51 01/18/25 19:05 01/18/25 13:18 Total Bilirubin 0.2 mg/dL (0.2-1.0) Aspartate Amino Transferase (AST) 17 U/L (13-40) Alanine Aminotransferase (ALT) 9 U/L (7-40) Alkaline Phosphatase 95 U/L (46-116) Total Protein 6.3 g/dL (5.7-8.2) Albumin 3.0 g/dL (3.2-4.8) Erythrocyte Sedimentation Rate 108 mm/hr (0-20) Urine Color Light-yellow (Yellow) Urine Clarity Clear (Clear) Urine pH 6.0 (5.0-9.0) Urine Specific [place] 1.025 (1.001-1.035) Urine Protein 1+ (Negative) Urine Ketones Negative (Negative) Urine Blood Negative /uL (Negative) Urine Nitrite Negative (Negative) Urine Bilirubin Negative (Negative) Urine Urobilinogen Normal mg/dL (Negative) Urine Leukocyte Esterase Negative /uL (Negative) Urine RBC <1 /hpf (0 - 4) Urine Microscopic WBC < 1 /HPF (0-5) Urine Squamous Epithelial Cells Few /hpf (<5) Urine Bacteria None seen /hpf (None Seen) Urine Yeast (Budding) Occasional /hpf (None Urine Glucose Normal mg/dL (Normal) Troponin I High Sensitivity 19 ng/L (</=34) C-Reactive Protein High Sensitivity 12.67 mg/dL (<1.0) B-Type Natriuretic Peptide 239.01 pg/mL (0-100) Thyroid Stimulating Hormone (TSH) 3.31 uIU/mL (0.55-4.78) Other Laboratory Tests 01/29/25 06:23 Brief Hx & Hospital Course: see dictated note Condition at Discharge: Fair Final Diagnosis/Problems List Right knee infection - hx of antibiotic spacer Discharge Disposition: Home with Health Services Discharge Instruct/Medications Diet: Cardiac 2g Na,low cholest Activity: No Restrictions, As Tolerated Follow Up/Referral: [facility] orth[facility]/pcp/dr Modi Medications: resume home meds Scheduled Alprazolam (Alprazolam), 1 TAB PO BID, (Reported) Amitriptyline HCl (Amitriptyline Hydrochlori), 1 TAB PO DAILY, (Reported) Aspirin (Aspirin), 1 TAB PO DAILY, (Reported) Atorvastatin Calcium (Lipitor), 1 TAB PO DAILY, (Reported) Bupropion Hcl (Bupropion Hcl), 100 MG PO Q8HR, (Reported) Carisoprodol (Carisoprodol), 350 MG PO QPM, (Reported) Cholecalciferol (Gnp Vitamin D), 1 TAB PO DAILY, (Reported) Cyclobenzaprine Hcl (Cyclobenzaprine Hcl), 1 TAB PO BID, (Reported) Diclofenac Sodium (Diclofenac Sodium Dr), 75 MG PO BID, (Reported) Docusate Sodium (Docusate Sodium), 1 CAP PO BID, (Reported) Famotidine (Famotidine), 1 TAB PO BID, (Reported) Ferrous Sulfate (Ferosul), 1 TAB PO BID, (Reported) Fluticasone Propionate (Fluticasone Propionate), 50 MCG SITA DAILY, (Reported) Furosemide (Furosemide), 1 TAB PO BID, (Reported) Hydrochlorothiazide (Hydrochlorothiazide), 25 MG PO DAILY, (Reported) Hydrocodone-Acetaminophen (Hydrocodone Bitartrate/AC 10-325 mg), 1 TAB PO BID, (Reported) Levothyroxine Sodium (Levothyroxine Sodium), 1 TAB PO DAILY, (Reported) Lisinopril (Lisinopril), 1 TAB PO DAILY, (Reported) Metoprolol Succinate (Metoprolol Succinate Er), 25 MG PO DAILY, (Reported) Nitroglycerin (Ntrostat Sublingual), 0.4 MG SL Q5MIN, (Reported) Pancrelipase (Lipase-Protease- (Creon), 1 CAP PO TID, (Reported) Pantoprazole Sodium Sesquihydr (Pantoprazole Sodium Dr), 1 TAB PO BID, (Reported) Potassium Chloride (Potassium Chloride ER), 1 TAB PO DAILY, (Reported) Simvastatin (Simvastatin), 40 MG PO QPM, (Reported) Sucralfate (Sucralfate), 1 TAB PO BID, (Reported) Tramadol Hcl (Tramadol Hcl), 50 MG PO BID, (Reported) Scheduled PRN Meclizine Hcl (Meclizine Hcl), 25 MG PO TID PRN for DIZZINESS, (Reported) Ondansetron HCl (Ondansetron Hydrochloride), 1 TAB PO BID PRN for NAUSEA / VOMITING, (Reported) Miscellaneous Medications Diclofenac Sodium (Topical) (Voltaren Arthritis Pain), 1 % EX, (Reported) Loratadine (Loratadine), 10 MG PO, (Reported) Discharge Statement: "Patient was advised to return to the ER or call 911 if any headaches, dizziness, shortness of breath, chest pain, abdominal pain, bleeding, fevers, or worsening of medical condition. Patient was counseled about treatment plan, medications, possible side effects, patientverbalized understanding. All questions were answered to the best of my ability. This discharge took greater then 30 minutes in planning, reviewing documentation, counseling the patient, and discussing with other team members." ASSESSMENT ASSESSMENT Assessment Right knee infection - hx of antibiotic spacer Date of Service: Feb 01, 2025 Billing Provider: ALDO MONDRAGON MD Common Visit Codes: 57740-[id number] DISCH DAY >30min ALDO MONDRAGON MD Feb 01, 2025 12:11
--- NOTE | 2025-02-01 13:09 | DVHPN2 ---
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 NOW WITH CONFUSION METABOLIC ENCEPHALOPATHY SEVERE OSTEOARTHRITIS RIGHT KNEE EFFUSION LEUKOCYTOSIS ANEMIA PMH ORGANIC HEART DISEASE HTN CAD WITH HX OF PTCA STENT HX OF CHF HRpEF / DIASTOLIC AFIB HYPERCOAGULABLE STATE HYPOKALEMIA SEVERE CACHEXIA HYPERCALCEMIA SEPTIC JOINT vital signs Vital Sign Date Time Temp Pulse Resp B/P (MAP) Pulse Ox O2 Delivery O2 Flow Rate FiO2 02/01/25 10:21 52 15 157/80 02/01/25 09:00 97.2 97 97.2 02/01/25 08:26 Room Air* 0 21 Total Intake and Output 01/31/25 01/31/25 02/01/25 15:00 23:00 07:00 Intake Total 840 ml 500 ml Balance 840 ml 500 ml medications Current Medications Medications Dose Ordered Sig/Irene Route Start Time Stop Time Status Last Admin Dose Admin Atorvastatin Calcium 10 mg HS PO 01/18/25 22:00 01/31/25 21:49 10 MG Aspirin 81 mg DAILY PO 01/19/25 10:00 02/01/25 09:08 81 MG Levothyroxine Sodium 75 mcg QAM@0600 PO 01/19/25 06:00 02/01/25 05:53 75 MCG Clonidine HCl 0.1 mg Q4HP PRN PO 01/18/25 16:00 02/01/25 01:21 0.1 MG Metoprolol Tartrate 25 mg BID PO 01/18/25 22:00 02/01/25 09:10 25 MG Ondansetron HCl 4 mg Q4HP PRN IV 01/18/25 16:00 Acetaminophen 650 mg Q6HP PRN PO 01/18/25 16:00 02/01/25 05:53 650 MG Nitroglycerin 0.4 mg Q5MINP PRN SL 01/18/25 17:30 Alprazolam 0.5 mg BID PRN PO 01/19/25 12:45 02/01/25 09:08 0.5 MG Famotidine 10 mg DAILY PO 01/21/25 10:00 02/01/25 09:09 10 MG Lisinopril 20 mg DAILY PO 01/22/25 10:00 02/01/25 09:09 20 MG Cefepime HCl 50 ml @ 12.5 mls/hr Q12HR IV 01/26/25 14:00 02/01/25 09:08 12.5 MLS/HR Sodium Chloride 10 ml QSHIFT@10,22 IV 01/27/25 22:00 02/01/25 09:10 10 ML Docusate Sodium 100 mg BID PO 01/28/25 22:00 02/01/25 09:08 100 MG Polyethylene Glycol 17 gm DAILYPRN PRN PO 01/29/25 08:00 01/31/25 21:50 17 GM Morphine Sulfate 2 mg Q6HPRN PRN IV 01/29/25 17:15 02/01/25 10:21 2 MG Acetaminophen/ Hydrocodone Bitart 1 tab Q6HP PRN PO 01/29/25 17:15 02/01/25 01:22 1 TAB objective HEENT: Head is atraumatic normocephalic, eyes PERRLA, ENT oropharynx moist and clear, neck supple, no tenderness, trachea midline, no masses no JVD. Chest: Denies chest pain, no diaphoresis, no mass adenopathy, no tenderness. Cardiac: Regular rate and rhythm, S1-S2 normal, no murmurs, no rubs or gallops. Pulmonary: No shortness of breath, lungs are clear to auscultation bilaterally, no wheezing, no rales or rhonchi. Abdomen: Soft, tender, nondistended, no masses, bowel sounds positive. Genitourinary: Denies dysuria, no urinary frequency, no hematuria. Skin: Skin warm and dry to touch no rash or lesion, no ulceration. Extremities: No clubbing, no edema, no tenderness, no varicosity. Neurologic: Grossly intact, no new focal motor deficit, no numbness or tingling. 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 NOW WITH CONFUSION METABOLIC ENCEPHALOPATHY SEVERE OSTEOARTHRITIS RIGHT KNEE EFFUSION LEUKOCYTOSIS ANEMIA PMH ORGANIC HEART DISEASE HTN CAD WITH HX OF PTCA STENT HX OF CHF HRpEF / DIASTOLIC AFIB HYPERCOAGULABLE STATE HYPOKALEMIA SEVERE CACHEXIA HYPERCALCEMIA ANEMIA REACTIVE THROMBOCYTOSIS Assessment/Plan ARTHROCENTESIS CXR OF FLUID CONSIDER OPEN DEBRIDEMENT IF CONTINUED INFECTION NOW REQUIRE OPEN DEBRIDEMENT OF RIGHT NEWS EPOGEN PHYSICAL THERAPY WROTE FOR EPOGEN BUT PHARMACY HAS NOT GIVEN THE PT THE ORDERS WRITTEN IF EPOGEN IS NOT GIVEN PT MAY REQUIRE TRANSFUSION INSTEAD HCT 24% IRON STUDY PRIOR TO DISCHARGE Dietary Evaluation Review Comments: Continue current plan of care Expected Outcomes/Goals: To meet 75% estimated needs fu 3-5 days Is there a minimum of two crit: Yes Plan discussed with: Patient ANISH DIAZ MD Feb 01, 2025 13:09
[2025-02-01 13:30] VITALS: BP 126/62; PULSE 52; RESP 17; TEMP 98; O2SAT 98
[2025-02-01 14:41] VITALS: BP 157/80; PULSE 52; RESP 15; TEMP 97.2; O2SAT 97
[2025-02-01 15:01] LABS: Iron 25.0 ug/dL (50-170); Total Iron Binding Capacity 228.0 ug/dL (250-425)
[2025-02-01 17:00] VITALS: BP 153/76; PULSE 58; RESP 17; TEMP 98.1; O2SAT 97
--- NOTE | 2025-02-01 18:17 | DVHDS ---
DATE OF DISCHARGE: 02/01/2025 HISTORY OF PRESENT ILLNESS: The patient is an 84-year-old lady who was admitted with history of pain in the right knee and has a history of CHF, depression, hypertension, anemia, hypothyroidism, and anxiety. HOSPITAL COURSE: The patient was seen in orthopedic consult by Dr. García. The patient had an ____ that showed evidence of moderate to large right effusion. The patient underwent drainage of the right knee as well as surgery by Dr. García on 01/25/2025. The patient had irrigation of the knee with placement of antibiotic beads and placement of a wound VAC. The patient's wound cultures grew pseudomonas. She was seen in Infectious Disease consult by Dr. Wallace who recommended IV antibiotics with cefepime to be given 6 grams daily for six weeks. The patient will now be discharged with home health for IV antibiotics. FINAL DIAGNOSES: * Right knee infection secondary to pseudomonas, status post surgery. * Anxiety. * Anemia. * Coronary artery disease. * Hypertension. * Hypothyroidism. * Chronic diastolic heart failure. * Hyperlipidemia. Time spent in discharge planning and review of plan with the patient and nursing was 39 minutes. MD DELIA Clay/TRELL/LAKESHIA TID: [id number] RECEIPT: [id number]
--- NOTE | 2025-02-02 10:46 | DVHPN2 ---
Consult Progress Note Date Seen: Feb 01, 2025 Subjective Patient reports: Feels better (no diarrhea , confusion appears to be improving , remains on cefepime ) Objective vital signs Vital Sign Date Time Temp Pulse Resp B/P (MAP) Pulse Ox O2 Delivery O2 Flow Rate FiO2 02/01/25 17:00 98.1 58 17 153/76 (101) 97 98.1 02/01/25 08:26 Room Air* 0 21 Total Intake and Output 02/01/25 02/01/25 02/02/25 15:00 23:00 07:00 Intake Total 850 ml Balance 850 ml Physical Exam: General: NAD Neck: Supple. No masses. HEENT: PERRL. Normal lids and conjunctiva. Moist mucous membranes. Oropharynx without lesions, exudates or excessive erythema. Normal appearance of the external aspects of the nose and ears. Heart: Regular rhythm, normal rate. No murmur. No lower extremity edema. Lungs: Normal respiratory effort. Clear to auscultation bilaterally. No wheezes. No crackles. Abdomen: Soft. Non-tender. Non-distended. No masses or abdominal hernia. Msk: Right knee swelling and tenderness. No digital cyanosis. Normal strength and tone in all 4 limbs. Skin: Warm and dry, no rashes. Neuro: Alert. No facial droop or slurred speech. Extra-ocular movements intact. Sensation intact to soft touch in all 4 limbs. Psych: Appropriate mood. Full affect. Oriented to person, place, time, and situation. 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 female with a past medical history of anxiety, congestive heart failure, depression, thyroid disease, and hypertension, who presents following a fall onto her right knee (site of a total knee replacement performed 4 months ago). Over the past month, she has experienced persistent right knee pain, swelling, and difficulty with ambulation. She was found to have a markedly elevated platelet count (peaked at 848), anemia (hemoglobin 8.7), and a white blood cell count initially elevated at 10.9 but improved to 7.7. Her right knee has a large effusion; aspiration grew de la cruz- sensitive Pseudomonas aeruginosa. She underwent operative debridement/irrigation with the placement of a wound vac and antibiotic spacer (tobramycin/gentamicin beads). No fevers noted currently. CT and ultrasound imaging identified large right knee effusion, soft tissue calcifications, and thin tissue likely consistent with dehiscence. Chest X-ray shows mild interstitial prominence and findings that may indicate underlying pulmonary vascular congestion or emphysematous changes. 01/26: clinically stable s/p operative debridement of the left knee . likely confused in the setting of anesthesia use 01/27: patient is refusing labs , piccline has been placed and functional 01/28: has pain in left knee 01/29: patient will need 6 weeks IV antibiotics followed by several months of oral antibiotics given proximity of infection to prosthesis 01/31: using Zosyn instead of cefepime to avoid exacerbating confusion 02/01: wound vac with drainage on patients knee . mentation appears improving Current Plan: - continue to assess mentation after discharge when f/u with Infectious disease clinic - given pseudomonas is de [place] cruz sensitive would treat with IV cefepime for 6 weeks 3x a day \-- Continue IV cefepime 6g daily continuously via PICC line for 6 weeks for prosthetic joint infection \-- Infectious disease follow-up for eventual transition to oral levofloxacin (noted fluoroquinolone sensitivity) after completion of planned IV therapy \-- Wound care and post-operative follow-up with Dr. García \-- Maintain wound vac, monitor for signs of persistent infection \-- Monitor CBC for anemia and thrombocytosis \-- Symptom monitoring: pain, drainage, fevers \-- CHF, hypertension, thyroid disease, anxiety, and depression management as per primary Isolation Precautions: Standard Plan discussed with: Other Dietary Evaluation Review Comments: Continue current plan of care Expected Outcomes/Goals: To meet 75% estimated needs fu 3-5 days Is there a minimum of two crit: Yes ADELINA OROZCO MD Feb 02, 2025 10:46
--- NOTE | 2025-02-16 09:59 | DVHPN2 ---
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 Chest: Denies chest pain, no diaphoresis, no mass adenopathy, no tenderness. Cardiac: Regular rate and rhythm, S1-S2 normal, no murmurs, no rubs or gallops. Pulmonary: No shortness of breath, lungs are clear to auscultation bilaterally, no wheezing, no rales or rhonchi. Abdomen: Soft, tender, nondistended, no masses, bowel sounds positive. Genitourinary: Denies dysuria, no urinary frequency, no hematuria. Skin: Skin warm and dry to touch no rash or lesion, no ulceration. Extremities: No clubbing, no edema, no tenderness, no varicosity. Neurologic: Grossly intact, no new focal motor deficit, no numbness or tingling. 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 NOW WITH CONFUSION METABOLIC ENCEPHALOPATHY SEVERE OSTEOARTHRITIS RIGHT KNEE EFFUSION LEUKOCYTOSIS ANEMIA PMH ORGANIC HEART DISEASE HTN CAD WITH HX OF PTCA STENT HX OF CHF HRpEF / DIASTOLIC AFIB HYPERCOAGULABLE STATE HYPOKALEMIA SEVERE CACHEXIA HYPERCALCEMIA ANEMIA REACTIVE THROMBOCYTOSIS Assessment/Plan ARTHROCENTESIS CXR OF FLUID CONSIDER OPEN DEBRIDEMENT IF CONTINUED INFECTION NOW REQUIRE OPEN DEBRIDEMENT OF RIGHT NEWS EPOGEN PHYSICAL THERAPY WROTE FOR EPOGEN BUT PHARMACY HAS NOT GIVEN THE PT THE ORDERS WRITTEN IF EPOGEN IS NOT GIVEN PT MAY REQUIRE TRANSFUSION INSTEAD HCT 24% IRON STUDY PRIOR TO DISCHARGE Dietary Evaluation Review Comments: Continue current plan of care Expected Outcomes/Goals: To meet 75% estimated needs fu 3-5 days Is there a minimum of two crit: Yes Plan discussed with: Patient ARUNASALAM,ANISH MD Feb 16, 2025 09:59
== END 2025-02-01 19:40 | disposition home health service (06) | DRG 486 ==
LOC: EDBD 12:46 → ER 12:51 → OVERFLOW 17:18 → WEST WING 23:47
PROVIDERS: ADMIT Internal Medicine; ATTEND Internal Medicine
PROC: 0S9C3ZX Drainage of Right Knee Joint, Percutaneous Approach, Diagnostic (ICD-10-PCS; 2025-01-20)
PROC: 0SBC0ZZ Excision of Right Knee Joint, Open Approach (ICD-10-PCS; 2025-01-25)
PROC: 3E0U029 Introduction of Other Anti-infective into Joints, Open Approach (ICD-10-PCS; 2025-01-25)
PROC: 02HV33Z Insertion of Infusion Device into Superior Vena Cava, Percutaneous Approach (ICD-10-PCS; principal; 2025-01-27)
PROC: B548ZZA Ultrasonography of Superior Vena Cava, Guidance (ICD-10-PCS; 2025-01-27)
DX: T84.53XA Infection and inflammatory reaction due to internal right knee prosthesis, initial encounter (principal); I13.0 Hypertensive heart and chronic kidney disease with heart failure and stage 1 through stage 4 chronic kidney disease, or unspecified chronic kidney disease; I50.32 Chronic diastolic (congestive) heart failure; M25.461 Effusion, right knee; D64.9 Anemia, unspecified; B96.5 Pseudomonas (aeruginosa) (mallei) (pseudomallei) as the cause of diseases classified elsewhere; I25.10 Atherosclerotic heart disease of native coronary artery without angina pectoris; N18.9 Chronic kidney disease, unspecified; F32.A Depression, unspecified; F41.9 Anxiety disorder, unspecified; G89.29 Other chronic pain; E03.9 Hypothyroidism, unspecified; E78.5 Hyperlipidemia, unspecified; K21.9 Gastro-esophageal reflux disease without esophagitis; I48.91 Unspecified atrial fibrillation; Z80.6 Family history of leukemia; Z95.5 Presence of coronary angioplasty implant and graft; Z79.82 Long term (current) use of aspirin; Z79.899 Other long term (current) drug therapy; Z90.710 Acquired absence of both cervix and uterus; Z82.49 Family history of ischemic heart disease and other diseases of the circulatory system; Z80.8 Family history of malignant neoplasm of other organs or systems; Z80.1 Family history of malignant neoplasm of trachea, bronchus and lung; Y84.8 Other medical procedures as the cause of abnormal reaction of the patient, or of later complication, without mention of misadventure at the time of the procedure; Y92.89 Other specified places as the place of occurrence of the external cause
CPT/HCPCS: 20611; 36415; 36569; 71045; 73700; 76881; 76937; 76942; 80048; 80053; 81001; 83540; 83550; 83880; 83986; 84443; 84484; 85025; 85045; 85610; 85652; 85730; 86141; 86850; 86900; 86901; 87077; 87186; 87205; 89051; 93005; 96361; 96374; 97110; 97116; 97163; 97530; C1729; G0378; J0131; J0692; J2405; J2704; J3490; J7060

== ENCOUNTER 2025-02-20 10:30 | Inpatient (IN) | payer MEDICARE, MEDICAID ==
[~2025-02-20] VITALS: Ht 167.6 cm; Wt 60.5 kg
--- NOTE | 2025-02-20 10:57 | ED.PDOC ---
Musculoskeletal HPI Comments 84-year-old female with a history of CAD, hypertension, CHF, dyslipidemia, thyroid disease and recent right knee pseudomonal infection status post irrigation and debridement with antibiotic bead placement brought in by EMS from home after home health care nurse advised the patient return to the hospital for worsening right lower extremity pain, redness and swelling. Patient states since she was discharged from this facility after the recent surgery, her right knee and leg have become more red, swollen and painful. She also notes urinary burning for the past week, nausea and vomiting all the time, and low-grade fever. She denies any lower extremity wound discharge or shortness of breath. Chief Complaint: Lower Extremity Time Seen by MD: 10:44 Primary Care Provider: ANISH Reviewed Notes: Nurses Notes, Batteryman Notes, Medications, Allergies Allergies: Coded Allergies: NO KNOWN ALLERGIES (Unverified , 10/11/16) UNOBTAINABLE (Unverified , 08/10/24) Home Meds Reported Medications Potassium Chloride (Potassium Chloride ER) 20 Meq Tab, 1 TAB PO DAILY for 31 Days, #31 08/11/24 Lisinopril (Lisinopril) 40 Mg Tab, 1 TAB PO DAILY for 90 Days, #90 24 Amitriptyline HCl (Amitriptyline Hydrochlori) 100 Mg Tab, 1 TAB PO DAILY for 70 Days, #70 24 Sucralfate (Sucralfate) 1 Gm Tab, 1 TAB PO BID for 30 Days, #60 06/23/24 Ferrous Sulfate (Ferosul) 325 Mg Tab, 1 TAB PO BID for 30 Days, #60 24 Pantoprazole Sodium Sesquihydr (Pantoprazole Sodium Dr) 40 Mg Tab, 1 TAB PO BID for 90 Days, #180 24 Docusate Sodium (Docusate Sodium) 100 Mg Cap, 1 CAP PO BID for 30 Days, #60 24 Atorvastatin Calcium (Lipitor) 10 Mg Tab, 1 TAB PO DAILY for 90 Days, #90 24 Alprazolam (Alprazolam) 0.5 Mg Tab, 1 TAB PO BID for 30 Days, #60 24 Ondansetron HCl (Ondansetron Hydrochloride) 8 Mg Tab, 1 TAB PO BID PRN for NAUSEA / VOMITING for 30 Days, #60 12/24/24 Famotidine (Famotidine) 40 Mg Tab, 1 TAB PO BID for 90 Days, #180 06/23/24 Cholecalciferol (Gnp Vitamin D) 1,000 Unit Tab, 1 TAB PO DAILY for 90 Days, #90 06/23/24 Hydrocodone-Acetaminophen (Hydrocodone Bitartrate/AC 10-325 mg) 1 Tab Tab, 1 TAB PO BID, TAB 02/27/24 Diclofenac Sodium (Topical) (Voltaren Arthritis Pain) 1 % Gel, 1 % EX, GEL 02/27/24 Furosemide (Furosemide) 40 Mg Tab, 1 TAB PO BID for 90 Days, #180 02/27/24 Fluticasone Propionate (Fluticasone Propionate) 0.05 % Cre, 50 MCG SITA DAILY for 30 Days, MCG 02/27/24 Cyclobenzaprine Hcl (Cyclobenzaprine Hcl) 10 Mg Tab, 1 TAB PO BID for 30 Days, #60 02/27/24 Hydrochlorothiazide (Hydrochlorothiazide) 25 Mg Tab, 25 MG PO DAILY for 30 Days, MG 02/27/24 Diclofenac Sodium (Diclofenac Sodium Dr) 75 Mg Tab, 75 MG PO BID, TAB 02/27/24 Bupropion Hcl (Bupropion Hcl) 100 Mg Tab, 100 MG PO Q8HR for 30 Days, MG 02/27/24 Meclizine Hcl (Meclizine Hcl) 25 Mg Tab, 25 MG PO TID PRN for DIZZINESS for 30 Days, MG 02/27/24 Simvastatin (Simvastatin) 40 Mg Tab, 40 MG PO QPM for 30 Days 02/27/24 Carisoprodol (Carisoprodol) 350 Mg Tab, 350 MG PO QPM for 30 Days, MG 02/27/24 Tramadol Hcl (Tramadol Hcl) 50 Mg Tab, 50 MG PO BID, TAB 04/12/23 Pancrelipase (Lipase-Protease- (CREON) 36,000 Unt Cap, 1 CAP PO TID for 31 Days, #100 04/12/23 Loratadine (Loratadine) 10 Mg Cap, 10 MG PO, CAP 04/24/19 Metoprolol Succinate (Metoprolol Succinate Er) 25 Mg Tab, 25 MG PO DAILY, TAB 01/17/17 Levothyroxine Sodium (Levothyroxine Sodium) 75 Mcg Tab, 1 TAB PO DAILY for 90 Days, #90 12/24/16 Aspirin (Aspirin) 81 Mg Tab, 1 TAB PO DAILY for 90 Days, #90 12/24/16 Nitroglycerin (NTROSTAT SUBLINGUAL) 0.4 Mg Sl, 0.4 MG SL Q5MIN for FOR CHEST PAIN *MAY REPEAT EVERY 5 MINUTES X 3 TOTAL IF NO RELIEF, INITIATE ANALGESIC THERAPY. NOTIFY PHYSICIAN *Do not crush. 12/24/16 Information Source: Patient, Emergency Med Personnel Mode of Arrival: EMS Past Medical History PAST MEDICAL HISTORY: Anemia, Anxiety, Arthritis, CAD, CHF, CKF, Depression, GERD, High Lipids, HTN, Thyroid Surgical History: Appendectomy, Hysterectomy APPLICATIONS ADMINISTRATOR History: Unknown, Unobtainable Family History Family History: Unknown Social History Smoker: Non-Smoker Alcohol: Denies ETOH Use Drugs: Denies Drug Use Lives In: Assisted Care, Alf All Other Systems: Reviewed and Negative (Comprehensive systems review obtained and negative except for what is stated in the HPI.) Physical Exam General Appearance: No Apparent Distress HEENT: Other (Pupils and face symmetric. Moist mucous membranes.) Neck: Full Range of Motion, Normal Inspection Respiratory: Lungs Clear, No Accessory Muscle Use, No Respiratory Distress, Normal Breath Sounds Cardiovascular: No JVD, Regular Rate/Rhythm Breast Exam: Deferred Gastrointestinal: Non Tender, Soft Genitalia: Deferred Pelvic: Deferred Rectal: Deferred Extremities: Leg edema (Right), Pedal edema (Right greater than left), Other (Right lower extremity midline anterior knee wound closed and intact. Diffuse knee and leg erythema, edema, warmth and tenderness extending to the proxim al/dorsal foot) Neurologic: Alert (Oriented x4), Other (Moves all extremities) Cerebellar Function: NOT DONE Reflexes: NOT DONE Skin: Dry, Warm, Wounds (Scattered healed scabbed wounds right lower extremity. Right lower extremity diffuse erythema involving the knee, leg and proximal foot.) Peripheral Pulses: 2+ dorsalis pedis (R), 2+ dorsalis pedis (L) Lymphatic: NOT DONE Was a procedure done? Was a procedure done?: No Differential Diagnosis EXT Differential Diagnosis: Cellulitis, CHF, Deep Vein Thrombosis, Gout, DJD, Rheumatoid, Septic, Neurovascular injury, Bursitis, Other (Abscess) X-Ray, Labs, Meds, VS Vital Signs Date Time Temp Pulse Resp B/P (MAP) Pulse Ox O2 Delivery O2 Flow Rate FiO2 02/20/25 10:37 98.5 70 16 142/79 99 98.5 Lab Test 02/20/25 11:18 Range/Units White Blood Count 9.4 4.4-10.8 10^3/uL Red Blood Count 3.14 L 4.0-5.20 10^6/uL Hemoglobin 8.5 L 12.2-16.2 g/dL Hematocrit 26.1 L 36.0-46.0 % Mean Corpuscular Volume 83.2 80.0-100.0 fL Mean Corpuscular Hemoglobin 27.2 L 28.0-32.0 pg Mean Corpuscular Hemoglobin Concent 32.7 32.0-36.0 g/dL Red Cell Distribution Width 21.3 H 11.8-14.3 % Platelet Count 623 H 140-450 10^3/uL Mean Platelet Volume 5.7 L 6.9-10.8 fL Neutrophils (%) (Auto) 68.0 37.0-80.0 % Lymphocytes (%) (Auto) 15.7 10.0-50.0 % Monocytes (%) (Auto) 13.3 H 0.0-12.0 % Eosinophils (%) (Auto) 2.4 0.0-7.0 % Basophils (%) (Auto) 0.6 0.0-2.0 % Neutrophils # (Auto) 6.4 1.6-8.6 10 ^3/uL Lymphocytes # (Auto) 1.5 0.4-5.4 10 ^3/uL Monocytes # (Auto) 1.3 0-1.3 10 ^3/uL Eosinophils # (Auto) 0.2 0-0.8 10 ^3/uL Basophils # (Auto) 0.1 0-0.2 10 ^3/uL Nucleated Red Blood Cells 0.0 % Prothrombin Time 11.4 9.3-11.8 sec Prothrombin Time INR 1.08 0.9-1.15 Activated Partial Thromboplast Time 29.5 24.5-34.5 SEC Sodium Level 140 136-145 mmol/L Potassium Level 2.7 L 3.5-5.1 mmol/L Chloride Level 104 98-107 mmol/L Carbon Dioxide Level 26 20-31 mmol/L Anion Gap 10 5-15 Blood Urea Nitrogen 23 9-23 mg/dL Creatinine 1.01 0.550-1.02 mg/dL Glomerular Filtration Rate Calc 54 >90 mL/min BUN/Creatinine Ratio 22.8 H 10.0-20.0 Serum Glucose 112 H 74-106 mg/dL Lactic Acid Level 1.4 0.4-2.0 mmol/L Calcium Level 9.0 8.7-10.4 mg/dL Total Bilirubin 0.3 0.2-1.0 mg/dL Aspartate Amino Transferase (AST) 35 13-40 U/L Alanine Aminotransferase (ALT) 14 7-40 U/L Alkaline Phosphatase 132 H 46-116 U/L C-Reactive Protein High Sensitivity 3.58 H <1.0 mg/dL Total Protein 7.7 5.7-8.2 g/dL Albumin 3.8 3.2-4.8 g/dL Current Medications Medications (Trade) Dose Ordered Sig/Irene Route Start Time Stop Time Status Last Admin Morphine Sulfate 4 mg ONCE ONCE IV 02/20/25 11:00 02/20/25 11:08 DC 02/20/25 15:20 Ondansetron HCl (Zofran) 4 mg ONCE ONCE IV 02/20/25 11:00 02/20/25 11:08 DC 02/20/25 15:18 Vancomycin HCl 250 ml @ 250 mls/hr ONCE ONCE IV 02/20/25 11:00 02/20/25 11:59 DC 02/20/25 15:24 Piperacillin Sod/ Tazobactam Sod 100 ml @ 100 mls/hr ONCE ONCE IV 02/20/25 11:00 02/20/25 11:59 DC 02/20/25 11:00 Potassium Bicarbonate (Klor-Con/Ef) 50 meq ONCE ONCE PO 02/20/25 13:00 02/20/25 13:01 DC 02/20/25 15:20 PROCEDURE(s): CXR1 - CHEST XRAY 1 VIEW REASON: edema ORDER NUMBER(s): [id number], ACCESSION NUMBER(s): [id number] CHEST RADIOGRAPH Indication: edema Technique: Single frontal view of the chest was obtained COMPARISON: XY CHEST PORTABLE on DOS: 01/18/25, XY CHEST PORTABLE on DOS: 06/24/24, CXRP on DOS: 11/16/21, CXRP on DOS: 11/12/21, CXR1 on DOS: 11/11/21 FINDINGS: Lines and Tubes: Right PICC in satisfactory position Lungs: Congestion Pleura: No effusion. No pneumothorax. Cardiomediastinal contours: Unremarkable Bones: Unremarkable IMPRESSION: Increased interstital prominence. This may represent pulmonary vascular congestion and/or viral pneumonia. Clinical correlation advised. EDURE(s): RLDVT - RT Lower DVT REASON: Lower extremity pain, redness and swelling ORDER NUMBER(s): [id number], ACCESSION NUMBER(s): [id number] Right lower extremity venous duplex Clinical History: Lower extremity pain, redness and swelling Comparison: US RIGHT LOWER EXTREMITY ULTRASOU on DOS: 01/19/25, US RIGHT LOWER EXTREMITY ULTRASOU on DOS: 08/11/24, US RIGHT LOWER EXTREMITY ULTRASOU on DOS: 06/22/24, US RT LOWER DVT on DOS: 06/19/24 Technique: Duplex Doppler evaluation of the deep venous system of the right lower extremity from the common femoral vein to the popliteal vein including color Doppler and spectral/pulsed waveform analysis was performed. Findings: The common femoral vein demonstrates appropriate compressibility and waveform variability. There is compressibility/patency of the great saphenous vein at the proximal thigh. The femoral vein demonstrates appropriate compressibility and waveform variability. The deep femoral vein demonstrates appropriate compressibility and waveform variability. The popliteal vein demonstrates appropriate compressibility and waveform variability. There is normal compressibility at the tibioperoneal trunk. Impression: 1. No right femoropopliteal venous thrombosis. 2. Contralateral common femoral vein is patent. X-Ray, Labs, Meds, VS Comment 84-year-old female with a history of CAD, hypertension, CHF, dyslipidemia, thyroid disease and recent right knee pseudomonal infection status post irr igation and debridement with antibiotic bead placement brought in by EMS from home after home health care nurse advised the patient return to the hospital for worsening right lower extremity pain, redness and swelling. Vitals remarkable for BP 142/79 Exam remarkable for right lower extremity erythema, edema, warmth and tenderness from the knee down to the proximal foot Rhythm strip independently interpreted by me: Sinus rhythm, rate 70, no ectopy. Chest x-ray IMPRESSION: Increased interstital prominence. This may represent pulmonary vascular congestion and/or viral pneumonia. Clinical correlation advised. Right Lower extremity ultrasound Impression: 1. No right femoropopliteal venous thrombosis. 2. Contralateral common femoral vein is patent. CBC remarkable for hemoglobin 8.5, hematocrit 26.1, platelets 623, basic metabolic panel remarkable for potassium 2.7, lactate normal, UA pending Patient treated with the following in the ED: Zosyn 4.5 g IV, vancomycin 1 g IV, morphine 4 mg IV, Zofran 4 mg IV, effervescent potassium 50 mEq p.o. On re-evaluation, pain has improved. Vitals were stable. Plan is to admit the patient for IV antibiotics and ortho evaluation Time of 1ST Reevaluation: 11:14 Reevaluation 1ST: Unchanged Patient Education/Counseling: Diagnosis, Treatment, Other (Need for admission ) Family Education/Counseling: No Family Present Sepsis Sepsis Reasesment Focused Exam Orders: Laboratory Tests 02/20/25 11:18: Lactic Acid Level 1.4 Departure 1 Departure Time of Disposition: 12:52 Impression: Primary Impression: Cellulitis of right lower extremity Additional Impression: Hypokalemia Disposition: ADMITTED INPATIENT Admit to: Med Surg Condition: Guarded Critical Care Note Critical Care Time?: No Stability Stability form required: No Heart Score Heart Score: Heart Score Response (Comments) Value History N/A 0 EKG N/A 0 Age N/A 0 Risk Factors N/A 0 Troponin N/A 0 Total 0 I personally scribed for ANGELA MONTE MD ([email or web address]) on 02/20/25 at 11:09. Electronically submitted by Avila Blanchard ([email or web address]). I personally scribed for ANGELA MONTE MD ([email or web address]) on 02/20/25 at 11:30. Electronically submitted by Avila Blanchard ([email or web address]). ANGELA MONTE MD Feb 20, 2025 10:56
[2025-02-20] MEDS: PIPERACILLIN-TAZO 4.5GM 100 ML IV ONE (11:00)
[2025-02-20 11:42] LABS: Nucleated Red Blood Cells % 0.0 %
[2025-02-20 11:43] LABS: Hematocrit 26.1 % (36.0-46.0); Hemoglobin 8.5 g/dL (12.2-16.2); Mean Corpuscular Hemoglobin 27.2 pg (28.0-32.0); Mean Corpuscular Volume 83.2 fL (80.0-100.0)
--- NOTE | 2025-02-20 11:52 | DVH ---
CHEST RADIOGRAPH Indication: edema Technique: Single frontal view of the chest was obtained COMPARISON: XY CHEST PORTABLE on DOS: 01/18/25, XY CHEST PORTABLE on DOS: 06/24/24, CXRP on DOS: , CXRP on DOS: 11/12/21, CXR1 on DOS: 11/11/21 FINDINGS: Lines and Tubes: Right PICC in satisfactory position Lungs: Congestion Pleura: No effusion. No pneumothorax. Cardiomediastinal contours: Unremarkable Bones: Unremarkable IMPRESSION: Increased interstital prominence. This may represent pulmonary vascular congestion and/or viral pneum onia. Clinical correlation advised.
[2025-02-20 11:57] LABS: INR 1.08 (0.9-1.15); Partial Thromboplastin Time 29.5 SEC (24.5-34.5); Prothrombin Time 11.4 sec (9.3-11.8)
[2025-02-20 12:04] LABS: Alanine Aminotransferase 14 U/L (7-40); Albumin 3.8 g/dL (3.2-4.8); Anion Gap 10 (5-15); BUN/Creatinine Ratio 22.8 (10.0-20.0); Bilirubin, Total 0.3 mg/dL (0.2-1.0); Blood Urea Nitrogen 23 mg/dL (9-23); Calcium 9.0 mg/dL (8.7-10.4); Carbon Dioxide 26 mmol/L (20-31); Chloride 104 mmol/L (98-107); Sodium 140 mmol/L (136-145); Total Protein 7.7 g/dL (5.7-8.2)
[2025-02-20 12:07] LABS: Alkaline Phosphatase 132 U/L (46-116); Glucose 112 mg/dL (74-106); Potassium 2.7 mmol/L (3.5-5.1)
--- NOTE | 2025-02-20 13:06 | DVH ---
Right lower extremity venous duplex Clinical History: Lower extremity pain, redness and swelling Comparison: US RIGHT LOWER EXTREMITY ULTRASOU on DOS: 01/19/25, US RIGHT LOWER EXTREMITY ULTRASOU on D OS: 08/11/24, US RIGHT LOWER EXTREMITY ULTRASOU on DOS: 06/22/24, US RT LOWER DVT on DOS: 06/19/24 Technique: Duplex Doppler evaluation of the deep venous system of the right lower extremity from the common femo ral vein to the popliteal vein including color Doppler and spectral/pulsed waveform analysis was perf ormed. Findings: The common femoral vein demonstrates appropriate compressibility and waveform variability. There is compressibility/patency of the great saphenous vein at the proximal thigh. The femoral vein demonstrates appropriate compressibility and waveform variability. The deep femoral vein demonstrates appropriate compressibility and waveform variability. The popliteal vein demonstrates appropriate compressibility and waveform variability. There is normal compressibility at the tibioperoneal trunk. Impression: 1. No right femoropopliteal venous thrombosis. 2. Contralateral common femoral vein is patent.
[2025-02-20] MEDS ORDERED: ONDANSETRON HCL 4 MG/2 ML VIAL IV PRN (14:00)
[2025-02-20] MEDS ORDERED: VANCOMYCIN PER PHARMACY 0 MG IV SCH (14:00)
--- NOTE | 2025-02-20 14:02 | DVHHP2 ---
Admitting Diagnosis: Right lower extremity pain History of Present Illness 84-year-old female with a history of CAD, hypertension, CHF, dyslipidemia, thyroid disease and recent right knee pseudomonal infection status post irrigation and debridement with antibiotic bead placement brought in by EMS from home after home health care nurse advised the patient return to the hospital for worsening right lower extremity pain, redness and swelling. Patient states since she was discharged from this facility after the recent surgery, her right knee and leg have become more red, swollen and painful. She also notes urinary burning for the past week, nausea and vomiting all the time, and low-grade fever. She denies any lower extremity wound discharge or shortness of breath. 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: Unknown, Unobtainable Family History Family History: Unknown Social History Smoker: Non-Smoker Alcohol: Denies ETOH Use Drugs: Denies Drug Use Lives In: Assisted Care, [facility] Patient Family History: Cancer G8 MOTHER UNCLE (LUNG CA) UNCLE (LEUKEMIA BRAIN CA) Family history: Cardiovascular disease G8 FATHER BROTHER Family history: Hypertension G8 FATHER AUNT BROTHER Ischemic heart disease G8 FATHER Psychiatric condition AUNT Allergies: Coded Allergies: NO KNOWN ALLERGIES (Unverified , 10/11/16) UNOBTAINABLE (Unverified , 08/10/24) Home Meds Reported Medications Potassium Chloride (Potassium Chloride ER) 20 Meq Tab, 1 TAB PO DAILY for 31 Days, #31 08/11/24 Lisinopril (Lisinopril) 40 Mg Tab, 1 TAB PO DAILY for 90 Days, #90 06/23/24 Amitriptyline HCl (Amitriptyline Hydrochlori) 100 Mg Tab, 1 TAB PO DAILY for 70 Days, #70 06/23/24 Sucralfate (Sucralfate) 1 Gm Tab, 1 TAB PO BID for 30 Days, #60 06/23/24 Ferrous Sulfate (Ferosul) 325 Mg Tab, 1 TAB PO BID for 30 Days, #60 06/23/24 Pantoprazole Sodium Sesquihydr (Pantoprazole Sodium Dr) 40 Mg Tab, 1 TAB PO BID for 90 Days, #180 06/23/24 Docusate Sodium (Docusate Sodium) 100 Mg Cap, 1 CAP PO BID for 30 Days, #60 06/23/24 Atorvastatin Calcium (Lipitor) 10 Mg Tab, 1 TAB PO DAILY for 90 Days, #90 06/23/24 Alprazolam (Alprazolam) 0.5 Mg Tab, 1 TAB PO BID for 30 Days, #60 06/23/24 Ondansetron HCl (Ondansetron Hydrochloride) 8 Mg Tab, 1 TAB PO BID PRN for NAUSEA / VOMITING for 30 Days, #60 06/23/24 Famotidine (Famotidine) 40 Mg Tab, 1 TAB PO BID for 90 Days, #180 06/23/24 Cholecalciferol (Gnp Vitamin D) 1,000 Unit Tab, 1 TAB PO DAILY for 90 Days, #90 06/23/24 Hydrocodone-Acetaminophen (Hydrocodone Bitartrate/AC 10-325 mg) 1 Tab Tab, 1 TAB PO BID, TAB 02/27/24 Diclofenac Sodium (Topical) (Voltaren Arthritis Pain) 1 % Gel, 1 % EX, GEL 02/27/24 Furosemide (Furosemide) 40 Mg Tab, 1 TAB PO BID for 90 Days, #180 02/27/24 Fluticasone Propionate (Fluticasone Propionate) 0.05 % Cre, 50 MCG SITA DAILY for 30 Days, MCG 02/27/24 Cyclobenzaprine Hcl (Cyclobenzaprine Hcl) 10 Mg Tab, 1 TAB PO BID for 30 Days, #60 02/27/24 Hydrochlorothiazide (Hydrochlorothiazide) 25 Mg Tab, 25 MG PO DAILY for 30 Days, MG 02/27/24 Diclofenac Sodium (Diclofenac Sodium Dr) 75 Mg Tab, 75 MG PO BID, TAB 02/27/24 Bupropion Hcl (Bupropion Hcl) 100 Mg Tab, 100 MG PO Q8HR for 30 Days, MG 02/27/24 Meclizine Hcl (Meclizine Hcl) 25 Mg Tab, 25 MG PO TID PRN for DIZZINESS for 30 Days, MG 02/27/24 Simvastatin (Simvastatin) 40 Mg Tab, 40 MG PO QPM for 30 Days 02/27/24 Carisoprodol (Carisoprodol) 350 Mg Tab, 350 MG PO QPM for 30 Days, MG 02/27/24 Tramadol Hcl (Tramadol Hcl) 50 Mg Tab, 50 MG PO BID, TAB 04/12/23 Pancrelipase (Lipase-Protease- (CREON) 36,000 Unt Cap, 1 CAP PO TID for 31 Days, #100 04/12/23 Loratadine (Loratadine) 10 Mg Cap, 10 MG PO, CAP 04/24/19 Metoprolol Succinate (Metoprolol Succinate Er) 25 Mg Tab, 25 MG PO DAILY, TAB 01/17/17 Levothyroxine Sodium (Levothyroxine Sodium) 75 Mcg Tab, 1 TAB PO DAILY for 90 Days, #90 12/24/16 Aspirin (Aspirin) 81 Mg Tab, 1 TAB PO DAILY for 90 Days, #90 12/24/16 Nitroglycerin (NTROSTAT SUBLINGUAL) 0.4 Mg Sl, 0.4 MG SL Q5MIN for FOR CHEST PAIN *MAY REPEAT EVERY 5 MINUTES X 3 TOTAL IF NO RELIEF, INITIATE ANALGESIC THERAPY. NOTIFY PHYSICIAN *Do not crush. 12/24/16 Current Medications Current Medications Medications (Trade) Dose Ordered Sig/Irene Route PRN Reason Start Time Stop Time Status Last Admin Sodium Chloride (Saline Lock Ns) 10 ml Q8HR IV 02/20/25 14:00 Docusate Sodium (Colace Capsule) 100 mg BIDPRN PRN PO FOR CONSTIPATION 02/20/25 14:00 Acetaminophen (Tylenol Tablet) 650 mg Q6HP PRN PO PAIN SCALE 1-3 OR TEMP>100.4 02/20/25 14:00 Acetaminophen/ Hydrocodone Bitart ([place] 5/325MG Tab) 1 tab Q4HP PRN PO MODERATE PAIN (4-6 PAIN SCALE) 02/20/25 14:00 Hydromorphone HCl (Dilaudid Injection) 0.5 mg Q4HP PRN IV SEVERE PAIN (7-10 PAIN SCALE) 02/20/25 14:00 Ondansetron HCl (Zofran) 4 mg Q4HP PRN IV NAUSEA / VOMITING 02/20/25 14:00 Enoxaparin Sodium (Lovenox) 30 mg DAILY SC 02/21/25 10:00 Vancomycin HCl 0 ml @ 0 mls/hr UD IV 02/20/25 14:00 Piperacillin Sod/ Tazobactam Sod 100 ml @ 25 mls/hr Q8HR IV 02/20/25 14:00 Vancomycin HCl 100 ml @ 100 mls/hr Q24H IV 02/21/25 06:00 Vital Signs Vital Signs Date Time Temp Pulse Resp B/P (MAP) Pulse Ox O2 Delivery O2 Flow Rate FiO2 02/20/25 14:27 69 17 99 Room Air* 0 21 02/20/25 14:17 97.7 126/66 (86) 97.7 Physical Exam Generally-84 years old woman, frail, sitting on chair. No apparent distress HEENT-atraumatic, normocephalic Heart-regular rate and rhythm lungs clear to auscultate Abdomen soft nontender nondistended Musculoskeletal-right lower extremity knee erythema, tender no cyanosis Neuro-wake, alert, and oriented, weakness on b/l lower leg. sensation intact SEPSIS Sepsis Screen Date sepsis recognized/suspect: Feb 20, 2025 Time Sepsis recognized/suspect: 1038 Recent Procedure: No On Antibiotic Therapy: Yes Respiratory Rate >20: No Heart Rate >90: No Temp<36 C (96.8 F) or >38.3 C: No SBP <90 or MAP <65 mmHG: No New Acute Mental Status Change: No Is the patient on CPAP, BIPAP,: No Physician Orders Urinalysis (02/20/25 11:00) Accucheck (02/20/25 11:00) Blood Culture (02/20/25 11:00) Notify Md If Map <65 Or Bp<90 (02/20/25 11:00) If Map<65 Start Vasopressor (02/20/25 11:00) Rt Lower Dvt (02/20/25 11:00) Chest Xray 1 View (02/20/25 11:00) Admit (02/20/25 13:46) Code Status (02/20/25 13:46) Vital Signs .PER UNIT PROTOCOL (02/20/25 13:46) Review Orders With Adm.Md (02/20/25 13:46) Encourage Activity As Tolerate (02/20/25 13:46) Sodium Chloride Lock (Saline Lock Ns) (02/20/25 14:00) Docusate Sodium Capsule (Colace Capsule) (02/20/25 14:00) Acetaminophen Tablet (Tylenol Tablet) (02/20/25 14:00) Notify Md Of Changes From Base (02/20/25 13:46) Advance Directive (02/20/25 13:46) Patient Condition (02/20/25 13:46) Allergies (02/20/25 13:46) Hydrocodone-Acet 5/325mg Tab ([place] 5/32 (02/20/25 14:00) Hydromorphone Injection (Dilaudid Inject (02/20/25 14:00) Ondansetron Hcl (Zofran) (02/20/25 14:00) Cardiac Diet-2gna,Lofat,Lochol (02/20/25 Dinner) Vancomycin Per Pharmacy (02/20/25 14:00) Piperacillin-Tazob 3.375gm (Zosyn 3.375g (02/20/25 14:00) Comprehensive Metabolic Panel (02/21/25 05:00) Comprehensive Metabolic Panel (02/22/25 05:00) Comprehensive Metabolic Panel (02/23/25 05:00) Comprehensive Metabolic Panel (02/24/25 05:00) Comprehensive Metabolic Panel (02/25/25 05:00) Complete Blood Count (02/21/25 05:00) Complete Blood Count (02/22/25 05:00) Complete Blood Count (02/23/25 05:00) Complete Blood Count (02/24/25 05:00) Complete Blood Count (02/25/25 05:00) Basic Metabolic Panel (02/20/25 14:07) Enoxaparin Sodium (Lovenox) (02/21/25 10:00) Vancomycin 750mg Kit (Vancomycin Hcl) (02/21/25 06:00) Vancomycin,Trough (02/23/25 05:00) Vancomycin Per Pharmacy Protoc (02/23/25 05:00) * Wound Consult (02/20/25 ) Vital Signs Date Time Temp Pulse Resp B/P (MAP) Pulse Ox O2 Delivery O2 Flow Rate FiO2 02/20/25 14:27 69 17 99 Room Air* 0 21 02/20/25 14:17 97.7 69 17 126/66 (86) 99 97.7 02/20/25 10:37 98.5 70 16 142/79 99 98.5 Laboratory Tests Test 02/20/25 11:18 Lactic Acid Level 1.4 mmol/L (0.4-2.0) White Blood Count 9.4 10^3/uL (4.4-10.8) Results Labs Test 02/20/25 14:24 02/20/25 11:18 Range/Units POC Glucose 91 70-106 mg/dl White Blood Count 9.4 4.4-10.8 10^3/uL Red Blood Count 3.14 L 4.0-5.20 10^6/uL Hemoglobin 8.5 L 12.2-16.2 g/dL Hematocrit 26.1 L 36.0-46.0 % Mean Corpuscular Volume 83.2 80.0-100.0 fL Mean Corpuscular Hemoglobin 27.2 L 28.0-32.0 pg Mean Corpuscular Hemoglobin Concent 32.7 32.0-36.0 g/dL Red Cell Distribution Width 21.3 H 11.8-14.3 % Platelet Count 623 H 140-450 10^3/uL Mean Platelet Volume 5.7 L 6.9-10.8 fL Neutrophils (%) (Auto) 68.0 37.0-80.0 % Lymphocytes (%) (Auto) 15.7 10.0-50.0 % Monocytes (%) (Auto) 13.3 H 0.0-12.0 % Eosinophils (%) (Auto) 2.4 0.0-7.0 % Basophils (%) (Auto) 0.6 0.0-2.0 % Neutrophils # (Auto) 6.4 1.6-8.6 10 ^3/uL Lymphocytes # (Auto) 1.5 0.4-5.4 10 ^3/uL Monocytes # (Auto) 1.3 0-1.3 10 ^3/uL Eosinophils # (Auto) 0.2 0-0.8 10 ^3/uL Basophils # (Auto) 0.1 0-0.2 10 ^3/uL Nucleated Red Blood Cells 0.0 % Prothrombin Time 11.4 9.3-11.8 sec Prothrombin Time INR 1.08 0.9-1.15 Activated Partial Thromboplast Time 29.5 24.5-34.5 SEC Sodium Level 140 136-145 mmol/L Potassium Level 2.7 L 3.5-5.1 mmol/L Chloride Level 104 98-107 mmol/L Carbon Dioxide Level 26 20-31 mmol/L Anion Gap 10 5-15 Blood Urea Nitrogen 23 9-23 mg/dL Creatinine 1.01 0.550-1.02 mg/dL Glomerular Filtration Rate Calc 54 >90 mL/min BUN/Creatinine Ratio 22.8 H 10.0-20.0 Serum Glucose 112 H 74-106 mg/dL Lactic Acid Level 1.4 0.4-2.0 mmol/L Calcium Level 9.0 8.7-10.4 mg/dL Total Bilirubin 0.3 0.2-1.0 mg/dL Aspartate Amino Transferase (AST) 35 13-40 U/L Alanine Aminotransferase (ALT) 14 7-40 U/L Alkaline Phosphatase 132 H 46-116 U/L C-Reactive Protein High Sensitivity 3.58 H <1.0 mg/dL Total Protein 7.7 5.7-8.2 g/dL Albumin 3.8 3.2-4.8 g/dL Primary Diagnosis Right knee cellulitis Plan Chest X-ray-no acute infection DVT study lower extremity negative for replete potassium Vanc and Zosyn for broad-spectrum antibiotics Check CRP, procalcitonin IV fluids Check blood culture CT right knee to assess for abscess Pain control Antiemetic Resume home meds Full code Lovenox for DVT prophylaxis No GI prophylaxis needed Plan discussed with: Patient Problems List: (1) Hypokalemia Status: Acute (2) Cellulitis of right lower extremity Status: Acute Date of Service: Feb 20, 2025 Billing Provider: SANJANA DAMON MD Common Visit Codes: [id number] INP/OBS CARE (HIGH) SANJANA DAMON MD Feb 20, 2025 14:02
[2025-02-20 14:27] VITALS: PULSE 69; RESP 17; O2SAT 99
[2025-02-20] MEDS: ONDANSETRON HCL 4 MG/2 ML VIAL IV ONE (15:18)
[2025-02-20] MEDS: MORPHINE SULFATE 4 MG/ML SYR/VIAL IV ONE (15:20)
[2025-02-20] MEDS: POTASSIUM EFFERVESENT TAB 25 MEQ PO ONE (15:20)
[2025-02-20] MEDS: VANCOMYCIN 1GM/250ML KIT 250 ML IV ONE (15:24)
[2025-02-20] MEDS: SODIUM CHLOR 0.9% PF (SALINE LOCK) 10ML VIAL/SYR IV SCH (15:24)
[2025-02-20] MEDS: PIPERACILLIN-TAZOB 3.375GM 100 ML IV SCH (15:25)
[2025-02-20 16:39] LABS: Chloride 103 mmol/L (98-107); Sodium 139 mmol/L (136-145)
[2025-02-20 16:40] LABS: Anion Gap 9 (5-15); Carbon Dioxide 27 mmol/L (20-31)
[2025-02-20 16:45] LABS: BUN/Creatinine Ratio 20.0 (10.0-20.0); Blood Urea Nitrogen 22 mg/dL (9-23); Glucose 95 mg/dL (74-106)
[2025-02-20 16:48] LABS: Calcium 8.5 mg/dL (8.7-10.4); Potassium 2.8 mmol/L (3.5-5.1)
[2025-02-20 20:09] VITALS: PULSE 88; RESP 20; O2SAT 98
[2025-02-21] VITALS (8 sets, daily range): BP systolic 126–142; BP diastolic 50–74; PULSE 67–77; RESP 17–20; TEMP 97.6–98.5; O2SAT 94–98
[2025-02-21] MEDS: HYDROmorphone HCL 2 MG/ML VL/or syr IV PRN (00:48)
[2025-02-21] MEDS ORDERED: SIMV20TA20 PO (01:38)
[2025-02-21] MEDS ORDERED: AMIT50TA12 PO (01:38)
[2025-02-21] MEDS ORDERED: ISOS1TAB28 PO (01:38)
[2025-02-21] MEDS ORDERED: LACT10PA2 PO (01:38)
[2025-02-21] MEDS ORDERED: FURO20TA3 PO (01:38)
[2025-02-21] MEDS ORDERED: MELO7.5T7 PO (01:38)
[2025-02-21] MEDS ORDERED: ZOFR4T PO (01:38)
[2025-02-21] MEDS: HYDROcodone-ACET 5/325MG TAB PO PRN (02:38)
[2025-02-21] MEDS: VANCOMYCIN 750MG KIT 100 ML IV SCH (05:26)
[2025-02-21 08:04] LABS: Hemoglobin 7.4 g/dL (12.2-16.2)
[2025-02-21 08:08] LABS: Hematocrit 22.7 % (36.0-46.0); Mean Corpuscular Hemoglobin 27.2 pg (28.0-32.0); Mean Corpuscular Volume 83.4 fL (80.0-100.0); Nucleated Red Blood Cells % 0.1 %
[2025-02-21 08:22] LABS: Alanine Aminotransferase 12 U/L (7-40); Alkaline Phosphatase 106 U/L (46-116); Anion Gap 6 (5-15); BUN/Creatinine Ratio 20.8 (10.0-20.0); Blood Urea Nitrogen 22 mg/dL (9-23); Carbon Dioxide 27 mmol/L (20-31); Chloride 104 mmol/L (98-107); Glucose 90 mg/dL (74-106); Potassium 3.9 mmol/L (3.5-5.1); Sodium 137 mmol/L (136-145); Total Protein 6.3 g/dL (5.7-8.2)
[2025-02-21 08:26] LABS: Bilirubin, Total 0.2 mg/dL (0.2-1.0); Calcium 8.3 mg/dL (8.7-10.4)
[2025-02-21 08:27] LABS: Albumin 3.1 g/dL (3.2-4.8)
[2025-02-21 09:08] LABS: Anisocytosis Slight
[2025-02-21] MEDS: ENOXAPARIN SOD 30 MG/0.3 ML SYRINGE SC SCH (11:08)
[2025-02-21] MEDS: DOCUSATE SOD 100 MG CAP PO PRN (14:46)
[2025-02-21] MEDS: ALPRAZolam 0.5 MG TAB PO PRN (14:53)
[2025-02-21] MEDS: FLEET ENEMA(ADULT) 135 ML PR ONE (14:56)
[2025-02-21] MEDS: CEFEPIME 1GM/50ML 50 ML IV SCH (19:55)
[2025-02-21] MEDS: LACTULOSE 20Gm/30ML SOLN PO SCH (22:48)
[2025-02-22] VITALS (9 sets, daily range): BP systolic 134–206; BP diastolic 68–95; PULSE 64–76; RESP 17–19; TEMP 97.5–98.6; O2SAT 93–100
[2025-02-22 07:30] LABS: Hematocrit 26.2 % (36.0-46.0); Hemoglobin 8.4 g/dL (12.2-16.2); Mean Corpuscular Hemoglobin 27.2 pg (28.0-32.0); Mean Corpuscular Volume 84.2 fL (80.0-100.0); Nucleated Red Blood Cells % 0.1 %
[2025-02-22 07:55] LABS: Alanine Aminotransferase 11 U/L (7-40); Albumin 3.5 g/dL (3.2-4.8); Alkaline Phosphatase 116 U/L (46-116); Anion Gap 7 (5-15); BUN/Creatinine Ratio 17.8 (10.0-20.0); Bilirubin, Total 0.2 mg/dL (0.2-1.0); Blood Urea Nitrogen 19 mg/dL (9-23); Calcium 8.8 mg/dL (8.7-10.4); Carbon Dioxide 27 mmol/L (20-31); Chloride 105 mmol/L (98-107); Glucose 90 mg/dL (74-106); Potassium 3.7 mmol/L (3.5-5.1); Sodium 139 mmol/L (136-145); Total Protein 6.9 g/dL (5.7-8.2)
[2025-02-22] MEDS: LISINOPRIL 20 MG TAB PO SCH (09:37)
[2025-02-22] MEDS: PANTOPRAZOLE 40 MG TAB PO SCH (09:37)
[2025-02-22] MEDS: METOPROLOL SUCCINATE XL 50 MG TAB PO SCH (09:38)
[2025-02-22] MEDS: FUROSEMIDE 40 MG TAB PO SCH (09:39)
[2025-02-22] MEDS: ASPirin-EC 81 mg tab PO SCH (09:39)
[2025-02-22] MEDS: SUCRALFATE 1 GM TAB PO SCH (09:39)
[2025-02-22] MEDS: CHOLECALCIFEROL (VITD3) 1,000UNIT=25mCg TAB PO SCH (09:39)
[2025-02-22] MEDS: ALPRAZolam 0.5 MG TAB PO SCH (09:40)
[2025-02-22] MEDS: POTASSIUM CHL 20 Meq TABLET PO SCH (09:40)
[2025-02-22] MEDS ORDERED: PATIENTS OWN MEDICATION (Levothyroxine Sodium 1 TAB) PO SCH (10:00)
[2025-02-22] MEDS ORDERED: AMITRIPTYLINE HCL 25 MG TAB PO SCH (10:00)
[2025-02-22] MEDS ORDERED: PATIENTS OWN MEDICATION (Potassium Chloride (Potassium Chloride ER) 1 TAB) PO SCH (10:00)
[2025-02-22] MEDS ORDERED: PATIENTS OWN MEDICATION (Atorvastatin Calcium (Lipitor) 1 TAB) PO SCH (10:00)
--- NOTE | 2025-02-22 11:41 | DVHPN2 ---
Progress Note Date Seen: Feb 22, 2025 Medical Necessity Reason Pt with a Central, PICC or Fol: No Subjective Patient reports: No new complaints Review of Systems: HEENT:Normal, CVS:Normal, RESPIRATORY:Normal, GI:Normal, :Normal, MSK:Normal, NEURO:Normal Objective vital signs Vital Sign Date Time Temp Pulse Resp B/P (MAP) Pulse Ox O2 Delivery O2 Flow Rate FiO2 02/22/25 09:39 157/64 02/22/25 09:38 80 02/22/25 09:00 97.7 19 95 97.7 02/22/25 08:10 Room Air* 0 21 Total Intake and Output 02/21/25 02/21/25 02/22/25 15:00 23:00 07:00 Intake Total 100 ml 415 ml 626 ml Balance 100 ml 415 ml 626 ml medications Current Medications Medications Dose Ordered Sig/Irene Route Start Time Stop Time Status Last Admin Dose Admin Sodium Chloride 10 ml Q8HR IV 02/20/25 14:00 02/22/25 05:28 10 ML Acetaminophen 650 mg Q6HP PRN PO 02/20/25 14:00 Acetaminophen/ Hydrocodone Bitart 1 tab Q4HP PRN PO 02/20/25 14:00 02/22/25 05:38 1 TAB Hydromorphone HCl 0.5 mg Q4HP PRN IV 02/20/25 14:00 02/22/25 03:45 0.5 MG Ondansetron HCl 4 mg Q4HP PRN IV 02/20/25 14:00 Enoxaparin Sodium 30 mg DAILY SC 02/21/25 10:00 02/22/25 09:35 30 MG Vancomycin HCl 0 ml @ 0 mls/hr UD IV 02/20/25 14:00 Vancomycin HCl 100 ml @ 100 mls/hr Q24H IV 02/21/25 06:00 02/22/25 05:28 100 MLS/HR Alprazolam 0.5 mg Q6HPRN PRN PO 02/21/25 14:30 02/21/25 20:57 0.5 MG Lactulose 30 ml BID PO 02/21/25 22:00 02/22/25 09:34 30 ML Cefepime HCl 50 ml @ 12.5 mls/hr Q12H IV 02/21/25 20:00 02/22/25 09:29 12.5 MLS/HR Alprazolam 0.5 mg BID PO 02/22/25 10:00 02/22/25 09:40 0.5 MG Aspirin 81 mg DAILY PO 02/22/25 10:00 02/22/25 09:39 81 MG Bupropion HCl 100 mg Q8HR PO 02/22/25 14:00 Cholecalciferol 1,000 unit DAILY PO 02/22/25 10:00 02/22/25 09:39 1,000 UNIT Furosemide 40 mg BID PO 02/22/25 10:00 02/22/25 09:39 40 MG Pantoprazole Sodium 40 mg BID PO 02/22/25 10:00 02/22/25 09:37 40 MG Sucralfate 1 gm BID PO 02/22/25 10:00 02/22/25 09:39 1 GM Tramadol HCl 50 mg BID PO 02/22/25 10:00 02/22/25 09:38 50 MG Patient Own Medication 50 mg HS PO 02/22/25 22:00 UNV Patient Own Medication 1 tab DAILY PO 02/22/25 10:00 UNV Patient Own Medication 1 tab DAILY PO 02/22/25 10:00 UNV Patient Own Medication 1 tab DAILY PO 02/22/25 10:00 UNV Lisinopril 20 mg BID PO 02/22/25 10:00 Metoprolol Succinate 25 mg DAILY PO 02/22/25 10:00 02/22/25 09:38 25 MG Atorvastatin Calcium 20 mg HS PO 02/22/25 22:00 Amitriptyline HCl 50 mg HS PO 02/22/25 22:00 Levothyroxine Sodium 75 mcg QAM@0600 PO 02/23/25 06:00 Potassium Chloride 20 meq DAILY PO 02/22/25 10:00 02/22/25 09:40 20 MEQ Examination: GENERAL:Normal, HEENT:Normal, NECK:Normal, LUNGS:Normal, CVS:Normal, ABDOMEN:Normal, MSK:Normal, MSK:Abnormal (right knee swollen, inflammed), SKIN:Normal, NEURO:Normal, :Normal laboratory and microbiology Laboratory Tests 02/22/25 06:46 Test 02/22/25 06:46 Range/Units Serum Glucose 90 74-106 mg/dL Microbiology Date/Time Source Procedure Growth Status 02/21/25 01:15 Nose MRSA Screen - Final Complete 02/20/25 11:28 Blood Blood Culture - Preliminary NO GROWTH AFTER 48 HOURS OF INCUBATION. Resulted Problem List/Assessment/Plan Problem List/Assessment/Plan * Right knee infection secondary to pseudomonas, status post surgery: recurrent swelling, ortho eval * Anxiety. * Anemia: monitor * Coronary artery disease. * Hypertension. * Hypothyroidism. * Chronic diastolic heart failure. * Hyperlipidemia. advance care planning- full code- time spent 18 mins Plan discussed with: Patient Dietary Evaluation Review Comments: 1) Encourage optimal PO intake 2) Consider laxative and/or soluble fiber supplement PRN to resolve constipation 3) Follow-up with cardiology 4) Continue to monitor I&O, labs, and skin integrity Expected Outcomes/Goals: 1) appetite and labs to improve 2) f/u in 3-5 days Date of Service: Feb 22, 2025 Billing Provider: ALDO MONDRAGON MD Common Visit Codes: [id number] INP/OBS CARE(HIGH) Secondary Visit Codes: [id number] CARE PLAN 30 MINUTES ALDO MONDRAGON MD Feb 22, 2025 11:41
--- NOTE | 2025-02-22 13:22 | DVHPN2 ---
Progress Note - Dictate Date Seen: Feb 22, 2025 Medical Necessity Reason Pt with a Central, PICC or Fol: No Subjective HX OF SEPTIC JOINT S/P EXPLANTATION OF RIGHT KNEE PROSTHESIS WITH SPACERS NOW WITH CONFUSION METABOLIC ENCEPHALOPATHY SEVERE OSTEOARTHRITIS RIGHT KNEE EFFUSION LEUKOCYTOSIS ANEMIA PMH ORGANIC HEART DISEASE HTN CAD WITH HX OF PTCA STENT HX OF CHF HRpEF / DIASTOLIC AFIB HYPERCOAGULABLE STATE HYPOKALEMIA SEVERE CACHEXIA HYPERCALCEMIA SEPTIC JOINT vital signs Vital Sign Date Time Temp Pulse Resp B/P (MAP) Pulse Ox O2 Delivery O2 Flow Rate FiO2 02/22/25 09:39 157/64 02/22/25 09:38 80 02/22/25 09:00 97.7 19 95 97.7 02/22/25 08:10 Room Air* 0 21 Total Intake and Output 02/21/25 02/21/25 02/22/25 15:00 23:00 07:00 Intake Total 100 ml 415 ml 626 ml Balance 100 ml 415 ml 626 ml medications Current Medications Medications Dose Ordered Sig/Irene Route Start Time Stop Time Status Last Admin Dose Admin Sodium Chloride 10 ml Q8HR IV 02/20/25 14:00 02/22/25 05:28 10 ML Acetaminophen 650 mg Q6HP PRN PO 02/20/25 14:00 Acetaminophen/ Hydrocodone Bitart 1 tab Q4HP PRN PO 02/20/25 14:00 02/22/25 05:38 1 TAB Hydromorphone HCl 0.5 mg Q4HP PRN IV 02/20/25 14:00 02/22/25 03:45 0.5 MG Ondansetron HCl 4 mg Q4HP PRN IV 02/20/25 14:00 Vancomycin HCl 0 ml @ 0 mls/hr UD IV 02/20/25 14:00 Vancomycin HCl 100 ml @ 100 mls/hr Q24H IV 02/21/25 06:00 02/22/25 05:28 100 MLS/HR Alprazolam 0.5 mg Q6HPRN PRN PO 02/21/25 14:30 02/21/25 20:57 0.5 MG Lactulose 30 ml BID PO 02/21/25 22:00 02/22/25 09:34 30 ML Alprazolam 0.5 mg BID PO 02/22/25 10:00 02/22/25 09:40 0.5 MG Aspirin 81 mg DAILY PO 02/22/25 10:00 02/22/25 09:39 81 MG Bupropion HCl 100 mg Q8HR PO 02/22/25 14:00 Cholecalciferol 1,000 unit DAILY PO 02/22/25 10:00 02/22/25 09:39 1,000 UNIT Pantoprazole Sodium 40 mg BID PO 02/22/25 10:00 02/22/25 09:37 40 MG Sucralfate 1 gm BID PO 02/22/25 10:00 02/22/25 09:39 1 GM Tramadol HCl 50 mg BID PO 02/22/25 10:00 02/22/25 09:38 50 MG Patient Own Medication 50 mg HS PO 02/22/25 22:00 UNV Patient Own Medication 1 tab DAILY PO 02/22/25 10:00 UNV Patient Own Medication 1 tab DAILY PO 02/22/25 10:00 UNV Patient Own Medication 1 tab DAILY PO 02/22/25 10:00 UNV Lisinopril 20 mg BID PO 02/22/25 10:00 Metoprolol Succinate 25 mg DAILY PO 02/22/25 10:00 02/22/25 09:38 25 MG Atorvastatin Calcium 20 mg HS PO 02/22/25 22:00 Amitriptyline HCl 50 mg HS PO 02/22/25 22:00 Levothyroxine Sodium 75 mcg QAM@0600 PO 02/23/25 06:00 Potassium Chloride 20 meq DAILY PO 02/22/25 10:00 02/22/25 09:40 20 MEQ Furosemide 40 mg QAM PO 02/23/25 07:00 Cefepime HCl 50 ml @ 12.5 mls/hr Q12HR IV 02/22/25 22:00 Enoxaparin Sodium 40 mg DAILY SC 02/23/25 10:00 objective HEENT: Head is atraumatic normocephalic, eyes PERRLA, ENT oropharynx moist and clear, neck supple, no tenderness, trachea midline, no masses no JVD. Chest: Denies chest pain, no diaphoresis, no mass adenopathy, no tenderness. Cardiac: Regular rate and rhythm, S1-S2 normal, no murmurs, no rubs or gallops. Pulmonary: No shortness of breath, lungs are clear to auscultation bilaterally, no wheezing, no rales or rhonchi. Abdomen: Soft, tender, nondistended, no masses, bowel sounds positive. Genitourinary: Denies dysuria, no urinary frequency, no hematuria. Skin: Skin warm and dry to touch no rash or lesion, no ulceration. Extremities: No clubbing, no edema, no tenderness, no varicosity. Neurologic: Grossly intact, no new focal motor deficit, no numbness or tingling. laboratory and microbiology Laboratory Tests 02/22/25 06:46 Test 02/22/25 06:46 Range/Units Serum Glucose 90 74-106 mg/dL Problem List NOW WITH KNEE EFFUSION HX OF SEPTIC JOINT S/P EXPLANTATION OF RIGHT KNEE PROSTHESIS WITH SPACERS NOW WITH CONFUSION METABOLIC ENCEPHALOPATHY SEVERE OSTEOARTHRITIS RIGHT KNEE EFFUSION LEUKOCYTOSIS ANEMIA PMH ORGANIC HEART DISEASE HTN CAD WITH HX OF PTCA STENT HX OF CHF HRpEF / DIASTOLIC AFIB HYPERCOAGULABLE STATE HYPOKALEMIA SEVERE CACHEXIA HYPERCALCEMIA ANEMIA REACTIVE THROMBOCYTOSIS Assessment/Plan s/p ARTHROCENTESIS CXR OF FLUID CONSIDER OPEN DEBRIDEMENT IF CONTINUED INFECTION NOW REQUIRE OPEN DEBRIDEMENT OF RIGHT NEWS EPOGEN PHYSICAL THERAPY WROTE FOR EPOGEN BUT PHARMACY HAS NOT GIVEN THE PT THE ORDERS WRITTEN IF EPOGEN IS NOT GIVEN PT MAY REQUIRE TRANSFUSION INSTEAD HCT 26% iron low retic count high esr high START IRON INFUSION Monitor Hydromorphone HCL 0.5 mg IV. Dietary Evaluation Review Comments: 1) Encourage optimal PO intake 2) Consider laxative and/or soluble fiber supplement PRN to resolve constipation 3) Follow-up with cardiology 4) Continue to monitor I&O, labs, and skin integrity Expected Outcomes/Goals: 1) appetite and labs to improve 2) f/u in 3-5 days Plan discussed with: Patient ANISH DIAZ MD Feb 22, 2025 13:22
[2025-02-22 15:11] LABS: Urine Protein, UAD Negative (Negative)
--- NOTE | 2025-02-22 20:41 | DVHINCON2 ---
Consult Note Consult Consult Note Reason for Consult: Right knee pain and swelling, s/p prosthetic joint infection, CHRONIC --- History of Present Illness (HPI) The patient is an 84-year-old female with past medical history significant for hypertension, CAD, hyperlipidemia, HFpEF, and hypothyroidism. She was recently admitted at [facility] from 01/18/2025 to 02/01/2025 for management of a right knee infection. HX of right knee w/ interval removal of the prior total knee arthroplasty with placement of a distal femoral intramedullary digna, proximal tibial intramedullary digna, and cement spacer (presumably antibiotic eluting), with previously completed Imaging also showed moderate to large right knee effusion with calcifications in the joint fluid, irregular calcifications in periarticular soft tissues, and generalized subcutaneous edema.based on this information and Aspiration finding of periprosthetic right knee infection, On 01/25/2025, the patient underwent right knee irrigation and debridement by Dr. García. Joint fluid culture grew Pseudomonas. She was also evaluated by infectious disease and treated w/ IV cefepime 6 g daily for 6 weeks. A PICC line is in place for IV antibiotic therapy. today, patient was seen as an inpatient for reevaluation due to ongoing right knee pain and swelling for which she was admiited again via ER. --- Exam (02/22/2026) General: Awake, alert, elderly female. Right Knee: Persistent swelling noted. Incision healing well, no dehiscence. Pain with range of motion. Mild warmth and erythema noted. Joint mildly tender to palpation. 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 Status post irrigation, debridement, and placement of antibiotic spacer. Ongoing right knee pain, swelling, warmth, and effusion. PICC line in place --- Chronically infected right knee with static spacer Plan 1. Interventional Radiology consult placed for right prosthetic knee aspiration with fluid to be send for cell count, Gram stain, and culture. 2. X-ray right knee ordered for further evaluation of hardware and joint status. 3. NPO at midnight once patietn cleared in preparation for possible surgical intervention. 4. Consent obtained for irrigation and debridement of the right knee. 5. Continue current IV antibiotics as per infectious disease recommendations via PICC line. 6.Pain Management per Hospitalist 7. Case discussed with Dr. García who agrees with above plan. Plan discussed with: Other (bedside Nurse) Visit Coding Surgery Date of Service if different f: Feb 22, 2025 Billing Provider: IDRIS MENA Surgery Visit Codes: [id number] - INP CONSULT <55 MIN IDRIS MENA Feb 22, 2025 20:41 HERBERT GARCÍA MD Feb 26, 2025 07:40
[2025-02-22] MEDS: CEFEPIME 2GM/50ML NS 50 ML IV SCH (21:47)
[2025-02-22] MEDS: ATORVASTATIN 20 MG TAB PO SCH (21:59)
[2025-02-22] MEDS: AMITRIPTYLINE HCL 25 MG TAB PO SCH (21:59)
[2025-02-22] MEDS ORDERED: PATIENTS OWN MEDICATION (Amitriptyline Hcl 50 MG) PO SCH (22:00)
[2025-02-23] VITALS (10 sets, daily range): BP systolic 140–180; BP diastolic 77–86; PULSE 58–78; RESP 16–18; TEMP 97.9–98.3; O2SAT 94–98
[2025-02-23] MEDS: LEVOTHYROXINE SODIUM 25 MCG TAB PO SCH (05:34)
[2025-02-23 07:23] LABS: Hematocrit 26.7 % (36.0-46.0); Hemoglobin 8.7 g/dL (12.2-16.2); Mean Corpuscular Hemoglobin 27.3 pg (28.0-32.0); Mean Corpuscular Volume 83.5 fL (80.0-100.0); Nucleated Red Blood Cells % 0.0 %
[2025-02-23 07:36] LABS: Chloride 103 mmol/L (98-107); Sodium 140 mmol/L (136-145)
[2025-02-23 07:37] LABS: Anion Gap 8 (5-15); Calcium 8.7 mg/dL (8.7-10.4); Carbon Dioxide 29 mmol/L (20-31)
[2025-02-23 07:42] LABS: BUN/Creatinine Ratio 15.4 (10.0-20.0); Blood Urea Nitrogen 14 mg/dL (9-23); Glucose 91 mg/dL (74-106); Potassium 3.1 mmol/L (3.5-5.1)
--- NOTE | 2025-02-23 08:00 | DVH ---
EXAM: XY R KNEE 2V XRAY HISTORY: Eval for hardware loosening, fracture or other changes COMPARISON: CT scan dated 01/18/2025. TECHNIQUE: AP and lateral views of the right knee were performed. FINDINGS: Postsurgical changes in the knee with intramedullary distal femoral and proximal tibial rods and anti biotic eluting tibiofemoral and patellofemoral spacer. Alignment is similar to the prior CT scan fro m 01/18/2025. No new cortical destruction. No acute fracture. Soft tissue swelling in the knee. IMPRESSION: 1. Postsurgical changes in the right knee without evidence of acute osseous abnormality or change in alignment since prior CT scan from 01/18/2025. 2. Significant soft tissue swelling in the knee.
[2025-02-23] MEDS: ENOXAPARIN SOD 40 MG/0.4 ML SYRINGE SC SCH (08:25)
[2025-02-23] MEDS: FUROSEMIDE 40 MG TAB PO SCH (08:38)
--- NOTE | 2025-02-23 11:32 | DVHPN2 ---
Progress Note Date Seen: Feb 23, 2025 Medical Necessity Reason Pt with a Central, PICC or Fol: Yes The following are medically ne: De Santiago Catheter Reason for de santiago catheter: Strict I&O Subjective Patient reports: No new complaints Review of Systems: HEENT:Normal, CVS:Normal, RESPIRATORY:Normal, GI:Normal, :Normal, MSK:Normal, NEURO:Normal Objective vital signs Vital Sign Date Time Temp Pulse Resp B/P (MAP) Pulse Ox O2 Delivery O2 Flow Rate FiO2 02/23/25 09:00 98.1 69 17 180/84 (116) 96 98.1 02/23/25 08:00 Room Air* 0 21 Total Intake and Output 02/22/25 02/22/25 02/23/25 15:00 23:00 07:00 Intake Total 50 ml 622 ml 280 ml Output Total 3080 ml Balance 50 ml 622 ml -2800 ml medications Current Medications Medications Dose Ordered Sig/Irene Route Start Time Stop Time Status Last Admin Dose Admin Sodium Chloride 10 ml Q8HR IV 02/20/25 14:00 02/23/25 05:37 10 ML Acetaminophen 650 mg Q6HP PRN PO 02/20/25 14:00 Acetaminophen/ Hydrocodone Bitart 1 tab Q4HP PRN PO 02/20/25 14:00 02/23/25 05:00 1 TAB Hydromorphone HCl 0.5 mg Q4HP PRN IV 02/20/25 14:00 02/23/25 01:43 0.5 MG Ondansetron HCl 4 mg Q4HP PRN IV 02/20/25 14:00 Vancomycin HCl 0 ml @ 0 mls/hr UD IV 02/20/25 14:00 Vancomycin HCl 100 ml @ 100 mls/hr Q24H IV 02/21/25 06:00 02/23/25 08:33 100 MLS/HR Alprazolam 0.5 mg Q6HPRN PRN PO 02/21/25 14:30 02/21/25 20:57 0.5 MG Lactulose 30 ml BID PO 02/21/25 22:00 02/23/25 08:33 30 ML Alprazolam 0.5 mg BID PO 02/22/25 10:00 02/23/25 08:38 0.5 MG Aspirin 81 mg DAILY PO 02/22/25 10:00 02/22/25 09:39 81 MG Bupropion HCl 100 mg Q8HR PO 02/22/25 14:00 02/23/25 05:34 100 MG Cholecalciferol 1,000 unit DAILY PO 02/22/25 10:00 02/23/25 08:38 1,000 UNIT Pantoprazole Sodium 40 mg BID PO 02/22/25 10:00 02/23/25 08:37 40 MG Sucralfate 1 gm BID PO 02/22/25 10:00 02/23/25 08:37 1 GM Tramadol HCl 50 mg BID PO 02/22/25 10:00 02/23/25 08:34 50 MG Patient Own Medication 50 mg HS PO 02/22/25 22:00 UNV Patient Own Medication 1 tab DAILY PO 02/22/25 10:00 UNV Patient Own Medication 1 tab DAILY PO 02/22/25 10:00 UNV Patient Own Medication 1 tab DAILY PO 02/22/25 10:00 UNV Lisinopril 20 mg BID PO 02/22/25 10:00 02/23/25 08:37 20 MG Metoprolol Succinate 25 mg DAILY PO 02/22/25 10:00 02/23/25 08:37 25 MG Atorvastatin Calcium 20 mg HS PO 02/22/25 22:00 02/22/25 21:59 20 MG Amitriptyline HCl 50 mg HS PO 02/22/25 22:00 02/22/25 21:59 50 MG Levothyroxine Sodium 75 mcg QAM@0600 PO 02/23/25 06:00 02/23/25 05:34 75 MCG Potassium Chloride 20 meq DAILY PO 02/22/25 10:00 02/23/25 08:38 20 MEQ Furosemide 40 mg QAM PO 02/23/25 07:00 02/23/25 08:38 40 MG Cefepime HCl 50 ml @ 12.5 mls/hr Q12HR IV 02/22/25 22:00 02/23/25 08:39 12.5 MLS/HR Enoxaparin Sodium 40 mg DAILY SC 02/23/25 10:00 Iron Sucrose 110 ml @ 110 mls/hr DAILY@1200 IV 02/23/25 12:00 02/27/25 12:59 Examination: GENERAL:Normal, HEENT:Normal, NECK:Normal, LUNGS:Normal, CVS:Normal, ABDOMEN:Normal, MSK:Normal, MSK:Abnormal (right knee swelling), SKIN:Normal, NEURO:Normal, :Normal laboratory and microbiology Laboratory Tests 02/23/25 07:04 Test 02/23/25 07:04 Range/Units Serum Glucose 91 74-106 mg/dL Microbiology Date/Time Source Procedure Growth Status 02/21/25 01:15 Nose MRSA Screen - Final Complete 02/20/25 11:28 Blood Blood Culture - Preliminary NO GROWTH AFTER 48 HOURS OF INCUBATION. Resulted Problem List/Assessment/Plan Problem List/Assessment/Plan * Right knee infection secondary to pseudomonas, status post surgery: recurrent swelling, ortho eval, radiology drainage today * Anxiety. * Anemia: monitor * Coronary artery disease. * Hypertension. * Hypothyroidism. * Chronic diastolic heart failure. * Hyperlipidemia. advance care planning- full code- time spent 18 mins Plan discussed with: Patient My Orders My Orders Orders - ALDO MONDRAGON MD Procedure Category Date Status Time Furosemide Tablet PHA 02/23/25 In Process (Lasix Tablet) 07:00 * Orthopedic Consult CONS 02/22/25 Transmitted 11:34 Urinalysis LAB 02/22/25 Uncollected 11:34 Cefepime 2gm/50ml Ns PHA 02/22/25 In Process (Maxipime 2gm/50ml) 22:00 Dietary Evaluation Review Comments: 1) Encourage optimal PO intake 2) Consider laxative and/or soluble fiber supplement PRN to resolve constipation 3) Follow-up with cardiology 4) Continue to monitor I&O, labs, and skin integrity Expected Outcomes/Goals: 1) appetite and labs to improve 2) f/u in 3-5 days Date of Service: Feb 23, 2025 Billing Provider: ALDO MONDRAGON MD Common Visit Codes: [id number] INP/OBS CARE(HIGH) ALDO MONDRAGON MD Feb 23, 2025 11:32
--- NOTE | 2025-02-23 13:24 | DVHPN2 ---
Progress Note - Dictate Date Seen: Feb 23, 2025 Medical Necessity Reason Pt with a Central, PICC or Fol: Yes The following are medically ne: De Santiago Catheter Reason for de santiago catheter: Strict I&O Subjective HX OF SEPTIC JOINT S/P EXPLANTATION OF RIGHT KNEE PROSTHESIS WITH SPACERS NOW WITH CONFUSION METABOLIC ENCEPHALOPATHY SEVERE OSTEOARTHRITIS RIGHT KNEE EFFUSION LEUKOCYTOSIS ANEMIA PMH ORGANIC HEART DISEASE HTN CAD WITH HX OF PTCA STENT HX OF CHF HRpEF / DIASTOLIC AFIB HYPERCOAGULABLE STATE HYPOKALEMIA SEVERE CACHEXIA HYPERCALCEMIA SEPTIC JOINT vital signs Vital Sign Date Time Temp Pulse Resp B/P (MAP) Pulse Ox O2 Delivery O2 Flow Rate FiO2 02/23/25 09:00 98.1 69 17 180/84 (116) 96 98.1 02/23/25 08:00 Room Air* 0 21 Total Intake and Output 02/22/25 02/22/25 02/23/25 15:00 23:00 07:00 Intake Total 50 ml 622 ml 280 ml Output Total 3080 ml Balance 50 ml 622 ml -2800 ml medications Current Medications Medications Dose Ordered Sig/Irene Route Start Time Stop Time Status Last Admin Dose Admin Sodium Chloride 10 ml Q8HR IV 02/20/25 14:00 02/23/25 05:37 10 ML Acetaminophen 650 mg Q6HP PRN PO 02/20/25 14:00 Acetaminophen/ Hydrocodone Bitart 1 tab Q4HP PRN PO 02/20/25 14:00 02/23/25 05:00 1 TAB Hydromorphone HCl 0.5 mg Q4HP PRN IV 02/20/25 14:00 02/23/25 01:43 0.5 MG Ondansetron HCl 4 mg Q4HP PRN IV 02/20/25 14:00 Vancomycin HCl 0 ml @ 0 mls/hr UD IV 02/20/25 14:00 Vancomycin HCl 100 ml @ 100 mls/hr Q24H IV 02/21/25 06:00 02/23/25 08:33 100 MLS/HR Alprazolam 0.5 mg Q6HPRN PRN PO 02/21/25 14:30 02/21/25 20:57 0.5 MG Lactulose 30 ml BID PO 02/21/25 22:00 02/23/25 08:33 30 ML Alprazolam 0.5 mg BID PO 02/22/25 10:00 02/23/25 08:38 0.5 MG Aspirin 81 mg DAILY PO 02/22/25 10:00 02/22/25 09:39 81 MG Bupropion HCl 100 mg Q8HR PO 02/22/25 14:00 02/23/25 05:34 100 MG Cholecalciferol 1,000 unit DAILY PO 02/22/25 10:00 02/23/25 08:38 1,000 UNIT Pantoprazole Sodium 40 mg BID PO 02/22/25 10:00 02/23/25 08:37 40 MG Sucralfate 1 gm BID PO 02/22/25 10:00 02/23/25 08:37 1 GM Tramadol HCl 50 mg BID PO 02/22/25 10:00 02/23/25 08:34 50 MG Patient Own Medication 50 mg HS PO 02/22/25 22:00 UNV Patient Own Medication 1 tab DAILY PO 02/22/25 10:00 UNV Patient Own Medication 1 tab DAILY PO 02/22/25 10:00 UNV Patient Own Medication 1 tab DAILY PO 02/22/25 10:00 UNV Lisinopril 20 mg BID PO 02/22/25 10:00 02/23/25 08:37 20 MG Metoprolol Succinate 25 mg DAILY PO 02/22/25 10:00 02/23/25 08:37 25 MG Atorvastatin Calcium 20 mg HS PO 02/22/25 22:00 02/22/25 21:59 20 MG Amitriptyline HCl 50 mg HS PO 02/22/25 22:00 02/22/25 21:59 50 MG Levothyroxine Sodium 75 mcg QAM@0600 PO 02/23/25 06:00 02/23/25 05:34 75 MCG Potassium Chloride 20 meq DAILY PO 02/22/25 10:00 02/23/25 08:38 20 MEQ Furosemide 40 mg QAM PO 02/23/25 07:00 02/23/25 08:38 40 MG Cefepime HCl 50 ml @ 12.5 mls/hr Q12HR IV 02/22/25 22:00 02/23/25 08:39 12.5 MLS/HR Enoxaparin Sodium 40 mg DAILY SC 02/23/25 10:00 Iron Sucrose 110 ml @ 110 mls/hr DAILY@1200 IV 02/23/25 12:00 02/27/25 12:59 objective HEENT: Head is atraumatic normocephalic, eyes PERRLA, ENT oropharynx moist and clear, neck supple, no tenderness, trachea midline, no masses no JVD. Chest: Denies chest pain, no diaphoresis, no mass adenopathy, no tenderness. Cardiac: Regular rate and rhythm, S1-S2 normal, no murmurs, no rubs or gallops. Pulmonary: No shortness of breath, lungs are clear to auscultation bilaterally, no wheezing, no rales or rhonchi. Abdomen: Soft, tender, nondistended, no masses, bowel sounds positive. Genitourinary: Denies dysuria, no urinary frequency, no hematuria. Skin: Skin warm and dry to touch no rash or lesion, no ulceration. Extremities: No clubbing, no edema, no tenderness, no varicosity. Neurologic: Grossly intact, no new focal motor deficit, no numbness or tingling. laboratory and microbiology Laboratory Tests 02/23/25 07:04 Test 02/23/25 07:04 Range/Units Serum Glucose 91 74-106 mg/dL Problem List NOW WITH KNEE EFFUSION HX OF SEPTIC JOINT S/P EXPLANTATION OF RIGHT KNEE PROSTHESIS WITH SPACERS NOW WITH CONFUSION METABOLIC ENCEPHALOPATHY SEVERE OSTEOARTHRITIS RIGHT KNEE EFFUSION LEUKOCYTOSIS ANEMIA PMH ORGANIC HEART DISEASE HTN CAD WITH HX OF PTCA STENT HX OF CHF HRpEF / DIASTOLIC AFIB HYPERCOAGULABLE STATE HYPOKALEMIA SEVERE CACHEXIA HYPERCALCEMIA ANEMIA REACTIVE THROMBOCYTOSIS Assessment/Plan s/p ARTHROCENTESIS CXR OF FLUID CONSIDER OPEN DEBRIDEMENT IF CONTINUED INFECTION NOW REQUIRE OPEN DEBRIDEMENT OF RIGHT NEWS EPOGEN PHYSICAL THERAPY WROTE FOR EPOGEN BUT PHARMACY HAS NOT GIVEN THE PT THE ORDERS WRITTEN IF EPOGEN IS NOT GIVEN PT MAY REQUIRE TRANSFUSION INSTEAD HCT 26% iron low retic count high esr high START IRON INFUSION IF LOCAL ORTHO CANNOT HANDLE THE INFECTION ID CONSIDER TRANSFER TO TERTIARY FACILITY Monitor Hydromorphone HCL 0.5 mg IV. Dietary Evaluation Review Comments: 1) Encourage optimal PO intake 2) Consider laxative and/or soluble fiber supplement PRN to resolve constipation 3) Follow-up with cardiology 4) Continue to monitor I&O, labs, and skin integrity Expected Outcomes/Goals: 1) appetite and labs to improve 2) f/u in 3-5 days Plan discussed with: Patient Critical Care Time(min): 35 ANISH DIAZ MD Feb 23, 2025 13:24
[2025-02-23] MEDS: IRON SUCROSE COMPLEX 110 ML IV SCH (13:46)
[2025-02-24] VITALS (9 sets, daily range): BP systolic 102–182; BP diastolic 54–82; PULSE 50–72; RESP 15–19; TEMP 96.9–97.7; O2SAT 94–99
[2025-02-24 06:58] LABS: Anion Gap 10 (5-15); Carbon Dioxide 26 mmol/L (20-31); Chloride 103 mmol/L (98-107); Potassium 4.1 mmol/L (3.5-5.1); Sodium 139 mmol/L (136-145)
[2025-02-24 07:00] LABS: Calcium 8.7 mg/dL (8.7-10.4)
[2025-02-24 07:04] LABS: Glucose 79 mg/dL (74-106)
[2025-02-24 07:05] LABS: BUN/Creatinine Ratio 18.4 (10.0-20.0); Blood Urea Nitrogen 18 mg/dL (9-23)
[2025-02-24 07:08] LABS: Hemoglobin 9.4 g/dL (12.2-16.2); Nucleated Red Blood Cells % 0.1 %
[2025-02-24 07:09] LABS: Hematocrit 29.1 % (36.0-46.0); Mean Corpuscular Hemoglobin 27.7 pg (28.0-32.0); Mean Corpuscular Volume 86.0 fL (80.0-100.0)
--- NOTE | 2025-02-24 13:37 | DVHPN2 ---
Progress Note - Dictate Date Seen: Feb 24, 2025 Medical Necessity Reason Pt with a Central, PICC or Fol: Yes The following are medically ne: De Santiago Catheter Reason for de santiago catheter: Strict I&O Subjective HX OF SEPTIC JOINT S/P EXPLANTATION OF RIGHT KNEE PROSTHESIS WITH SPACERS NOW WITH CONFUSION METABOLIC ENCEPHALOPATHY SEVERE OSTEOARTHRITIS RIGHT KNEE EFFUSION LEUKOCYTOSIS ANEMIA PMH ORGANIC HEART DISEASE HTN CAD WITH HX OF PTCA STENT HX OF CHF HRpEF / DIASTOLIC AFIB HYPERCOAGULABLE STATE HYPOKALEMIA SEVERE CACHEXIA HYPERCALCEMIA SEPTIC JOINT vital signs Vital Sign Date Time Temp Pulse Resp B/P (MAP) Pulse Ox O2 Delivery O2 Flow Rate FiO2 02/24/25 12:34 97.5 61 16 182/82 (115) 97 97.5 02/24/25 08:00 Room Air* 0 21 Total Intake and Output 02/23/25 02/23/25 02/24/25 14:59 22:59 06:59 Intake Total 600 ml 550 ml Output Total 1850 ml Balance -1250 ml 550 ml medications Current Medications Medications Dose Ordered Sig/Irene Route Start Time Stop Time Status Last Admin Dose Admin Sodium Chloride 10 ml Q8HR IV 02/20/25 14:00 02/24/25 05:25 10 ML Acetaminophen 650 mg Q6HP PRN PO 02/20/25 14:00 Acetaminophen/ Hydrocodone Bitart 1 tab Q4HP PRN PO 02/20/25 14:00 02/24/25 12:06 1 TAB Hydromorphone HCl 0.5 mg Q4HP PRN IV 02/20/25 14:00 02/23/25 23:06 0.5 MG Ondansetron HCl 4 mg Q4HP PRN IV 02/20/25 14:00 Vancomycin HCl 0 ml @ 0 mls/hr UD IV 02/20/25 14:00 Vancomycin HCl 100 ml @ 100 mls/hr Q24H IV 02/21/25 06:00 02/24/25 05:38 100 MLS/HR Alprazolam 0.5 mg Q6HPRN PRN PO 02/21/25 14:30 02/21/25 20:57 0.5 MG Lactulose 30 ml BID PO 02/21/25 22:00 02/24/25 08:53 30 ML Alprazolam 0.5 mg BID PO 02/22/25 10:00 02/24/25 08:55 0.5 MG Aspirin 81 mg DAILY PO 02/22/25 10:00 02/22/25 09:39 81 MG Bupropion HCl 100 mg Q8HR PO 02/22/25 14:00 02/23/25 23:00 100 MG Cholecalciferol 1,000 unit DAILY PO 02/22/25 10:00 02/24/25 08:54 1,000 UNIT Pantoprazole Sodium 40 mg BID PO 02/22/25 10:00 02/24/25 08:54 40 MG Sucralfate 1 gm BID PO 02/22/25 10:00 02/24/25 08:54 1 GM Tramadol HCl 50 mg BID PO 02/22/25 10:00 02/24/25 08:55 50 MG Patient Own Medication 50 mg HS PO 02/22/25 22:00 UNV Patient Own Medication 1 tab DAILY PO 02/22/25 10:00 UNV Patient Own Medication 1 tab DAILY PO 02/22/25 10:00 UNV Patient Own Medication 1 tab DAILY PO 02/22/25 10:00 UNV Lisinopril 20 mg BID PO 02/22/25 10:00 02/24/25 08:54 20 MG Metoprolol Succinate 25 mg DAILY PO 02/22/25 10:00 02/24/25 08:55 25 MG Atorvastatin Calcium 20 mg HS PO 02/22/25 22:00 02/23/25 23:00 20 MG Amitriptyline HCl 50 mg HS PO 02/22/25 22:00 02/23/25 23:08 50 MG Levothyroxine Sodium 75 mcg QAM@0600 PO 02/23/25 06:00 02/23/25 05:34 75 MCG Potassium Chloride 20 meq DAILY PO 02/22/25 10:00 02/24/25 08:54 20 MEQ Furosemide 40 mg QAM PO 02/23/25 07:00 02/23/25 08:38 40 MG Cefepime HCl 50 ml @ 12.5 mls/hr Q12HR IV 02/22/25 22:00 02/24/25 08:54 12.5 MLS/HR Enoxaparin Sodium 40 mg DAILY SC 02/23/25 10:00 Iron Sucrose 110 ml @ 110 mls/hr DAILY@1200 IV 02/23/25 12:00 02/27/25 12:59 02/24/25 12:06 110 MLS/HR Hydralazine HCl 10 mg Q6HP PRN IV 02/23/25 13:30 Clonidine HCl 0.1 mg Q6HP PRN PO 02/23/25 16:45 02/24/25 12:06 0.1 MG objective HEENT: Head is atraumatic normocephalic, eyes PERRLA, ENT oropharynx moist and clear, neck supple, no tenderness, trachea midline, no masses no JVD. Chest: Denies chest pain, no diaphoresis, no mass adenopathy, no tenderness. Cardiac: Regular rate and rhythm, S1-S2 normal, no murmurs, no rubs or gallops. Pulmonary: No shortness of breath, lungs are clear to auscultation bilaterally, no wheezing, no rales or rhonchi. Abdomen: Soft, tender, nondistended, no masses, bowel sounds positive. Genitourinary: Denies dysuria, no urinary frequency, no hematuria. Skin: Skin warm and dry to touch no rash or lesion, no ulceration. Extremities: No clubbing, no edema, no tenderness, no varicosity. Neurologic: Grossly intact, no new focal motor deficit, no numbness or tingling. laboratory and microbiology Laboratory Tests 02/24/25 06:04 02/24/25 05:36 Test 02/24/25 06:04 Range/Units Serum Glucose 79 74-106 mg/dL Problem List NOW WITH KNEE EFFUSION HX OF SEPTIC JOINT S/P EXPLANTATION OF RIGHT KNEE PROSTHESIS WITH SPACERS NOW WITH CONFUSION METABOLIC ENCEPHALOPATHY SEVERE OSTEOARTHRITIS RIGHT KNEE EFFUSION LEUKOCYTOSIS ANEMIA PMH ORGANIC HEART DISEASE HTN CAD WITH HX OF PTCA STENT HX OF CHF HRpEF / DIASTOLIC AFIB HYPERCOAGULABLE STATE HYPOKALEMIA SEVERE CACHEXIA HYPERCALCEMIA ANEMIA REACTIVE THROMBOCYTOSIS Assessment/Plan s/p ARTHROCENTESIS CXR OF FLUID CONSIDER OPEN DEBRIDEMENT IF CONTINUED INFECTION NOW REQUIRE OPEN DEBRIDEMENT OF RIGHT NEWS EPOGEN PHYSICAL THERAPY WROTE FOR EPOGEN BUT PHARMACY HAS NOT GIVEN THE PT THE ORDERS WRITTEN IF EPOGEN IS NOT GIVEN PT MAY REQUIRE TRANSFUSION INSTEAD HCT 26% iron low retic count high esr high START IRON INFUSION IF LOCAL ORTHO CANNOT HANDLE THE INFECTION ID CONSIDER TRANSFER TO TERTIARY FACILITY Monitor Hydromorphone HCL 0.5 mg IV. Dietary Evaluation Review Comments: 1) Encourage optimal PO intake 2) Consider laxative and/or soluble fiber supplement PRN to resolve constipation 3) Follow-up with cardiology 4) Continue to monitor I&O, labs, and skin integrity Expected Outcomes/Goals: 1) appetite and labs to improve 2) f/u in 3-5 days Plan discussed with: Patient ANISH DIAZ MD Feb 24, 2025 13:37
--- NOTE | 2025-02-24 14:14 | DVHPN2 ---
Progress Note Date Seen: Feb 24, 2025 Medical Necessity Reason Pt with a Central, PICC or Fol: Yes The following are medically ne: De Santiago Catheter Reason for de santiago catheter: Strict I&O Subjective Patient reports: No new complaints Review of Systems: HEENT:Normal, CVS:Normal, RESPIRATORY:Normal, GI:Normal, :Normal, MSK:Normal, NEURO:Normal Objective vital signs Vital Sign Date Time Temp Pulse Resp B/P (MAP) Pulse Ox O2 Delivery O2 Flow Rate FiO2 02/24/25 13:15 183/89 02/24/25 12:34 97.5 61 16 97 97.5 02/24/25 08:00 Room Air* 0 21 Total Intake and Output 02/23/25 02/23/25 02/24/25 15:00 23:00 07:00 Intake Total 600 ml 550 ml Output Total 1850 ml Balance -1250 ml 550 ml medications Current Medications Medications Dose Ordered Sig/Irene Route Start Time Stop Time Status Last Admin Dose Admin Sodium Chloride 10 ml Q8HR IV 02/20/25 14:00 02/24/25 13:47 10 ML Acetaminophen 650 mg Q6HP PRN PO 02/20/25 14:00 Acetaminophen/ Hydrocodone Bitart 1 tab Q4HP PRN PO 02/20/25 14:00 02/24/25 12:06 1 TAB Hydromorphone HCl 0.5 mg Q4HP PRN IV 02/20/25 14:00 02/23/25 23:06 0.5 MG Ondansetron HCl 4 mg Q4HP PRN IV 02/20/25 14:00 Vancomycin HCl 0 ml @ 0 mls/hr UD IV 02/20/25 14:00 Vancomycin HCl 100 ml @ 100 mls/hr Q24H IV 02/21/25 06:00 02/24/25 05:38 100 MLS/HR Alprazolam 0.5 mg Q6HPRN PRN PO 02/21/25 14:30 02/21/25 20:57 0.5 MG Lactulose 30 ml BID PO 02/21/25 22:00 02/24/25 08:53 30 ML Alprazolam 0.5 mg BID PO 02/22/25 10:00 02/24/25 08:55 0.5 MG Aspirin 81 mg DAILY PO 02/22/25 10:00 02/22/25 09:39 81 MG Bupropion HCl 100 mg Q8HR PO 02/22/25 14:00 02/23/25 23:00 100 MG Cholecalciferol 1,000 unit DAILY PO 02/22/25 10:00 02/24/25 08:54 1,000 UNIT Pantoprazole Sodium 40 mg BID PO 02/22/25 10:00 02/24/25 08:54 40 MG Sucralfate 1 gm BID PO 02/22/25 10:00 02/24/25 08:54 1 GM Tramadol HCl 50 mg BID PO 02/22/25 10:00 02/24/25 08:55 50 MG Patient Own Medication 50 mg HS PO 02/22/25 22:00 UNV Patient Own Medication 1 tab DAILY PO 02/22/25 10:00 UNV Patient Own Medication 1 tab DAILY PO 02/22/25 10:00 UNV Patient Own Medication 1 tab DAILY PO 02/22/25 10:00 UNV Lisinopril 20 mg BID PO 02/22/25 10:00 02/24/25 08:54 20 MG Metoprolol Succinate 25 mg DAILY PO 02/22/25 10:00 02/24/25 08:55 25 MG Atorvastatin Calcium 20 mg HS PO 02/22/25 22:00 02/23/25 23:00 20 MG Amitriptyline HCl 50 mg HS PO 02/22/25 22:00 02/23/25 23:08 50 MG Levothyroxine Sodium 75 mcg QAM@0600 PO 02/23/25 06:00 02/23/25 05:34 75 MCG Potassium Chloride 20 meq DAILY PO 02/22/25 10:00 02/24/25 08:54 20 MEQ Furosemide 40 mg QAM PO 02/23/25 07:00 02/23/25 08:38 40 MG Cefepime HCl 50 ml @ 12.5 mls/hr Q12HR IV 02/22/25 22:00 02/24/25 08:54 12.5 MLS/HR Enoxaparin Sodium 40 mg DAILY SC 02/23/25 10:00 Iron Sucrose 110 ml @ 110 mls/hr DAILY@1200 IV 02/23/25 12:00 02/27/25 12:59 02/24/25 12:06 110 MLS/HR Hydralazine HCl 10 mg Q6HP PRN IV 02/23/25 13:30 Clonidine HCl 0.1 mg Q6HP PRN PO 02/23/25 16:45 02/24/25 12:06 0.1 MG Examination: GENERAL:Normal, HEENT:Normal, NECK:Normal, LUNGS:Normal, CVS:Normal, ABDOMEN:Normal, MSK:Normal, MSK:Abnormal (right knee swelling), SKIN:Normal, NEURO:Normal, :Normal laboratory and microbiology Laboratory Tests 02/24/25 06:04 02/24/25 05:36 Test 02/24/25 06:04 Range/Units Serum Glucose 79 74-106 mg/dL Microbiology Date/Time Source Procedure Growth Status 02/21/25 01:15 Nose MRSA Screen - Final Complete 02/20/25 11:28 Blood Blood Culture - Preliminary NO GROWTH AFTER 72 HOURS OF INCUBATION. Resulted Problem List/Assessment/Plan Problem List/Assessment/Plan * Right knee infection secondary to pseudomonas, status post surgery: recurrent swelling, ortho eval, radiology drainage today * Anxiety. * Anemia: monitor * Coronary artery disease. * Hypertension. * Hypothyroidism. * Chronic diastolic heart failure. * Hyperlipidemia. advance care planning- full code- time spent 18 mins Plan discussed with: Patient My Orders My Orders Orders - ALDO MONDRAGON MD Procedure Category Date Status Time Clonidine Hcl Tablet PHA 02/23/25 In Process (Catapres Tablet) 16:45 Dietary Evaluation Review Comments: 1) Encourage optimal PO intake 2) Consider laxative and/or soluble fiber supplement PRN to resolve constipation 3) Follow-up with cardiology 4) Continue to monitor I&O, labs, and skin integrity Expected Outcomes/Goals: 1) appetite and labs to improve 2) f/u in 3-5 days Date of Service: Feb 24, 2025 Billing Provider: ALDO MONDRAGON MD Common Visit Codes: [id number] INP/OBS CARE(HIGH) ALDO MONDRAGON MD Feb 24, 2025 14:14
[2025-02-24] MEDS: hydrALAZINE HCL 20 MG/ML VL IV PRN (14:15)
--- NOTE | 2025-02-24 16:44 | DVH ---
ULTRASOUND SOFT TISSUE: REASON FOR EXAM: evaluate right knee for fluid aspiration TECHNIQUE: Real-time sector scans in the transverse and longitudinal planes were obtained about the right knee. FINDINGS: There is trace loculated fluid at the superior aspect of the anterior knee (approximately 1.3 x 0.6 x 2.2 cm), significantly decreased in size compared with the prior study. There is severe e eber of the soft tissues surrounding the knee. IMPRESSION: Trace loculated fluid at the superior aspect of the knee, significantly decreased in size compared wi th the prior study. Severe soft tissue edema surrounding the knee.
[2025-02-25] VITALS (9 sets, daily range): BP systolic 108–168; BP diastolic 42–81; PULSE 57–68; RESP 15–19; TEMP 96.8–98.1; O2SAT 95–98
--- NOTE | 2025-02-25 13:11 | DVHPN2 ---
Progress Note - Dictate Date Seen: Feb 25, 2025 Medical Necessity Reason Pt with a Central, PICC or Fol: Yes The following are medically ne: De Santiago Catheter Reason for de santiago catheter: Strict I&O Subjective HX OF SEPTIC JOINT S/P EXPLANTATION OF RIGHT KNEE PROSTHESIS WITH SPACERS NOW WITH CONFUSION METABOLIC ENCEPHALOPATHY SEVERE OSTEOARTHRITIS RIGHT KNEE EFFUSION LEUKOCYTOSIS ANEMIA PMH ORGANIC HEART DISEASE HTN CAD WITH HX OF PTCA STENT HX OF CHF HRpEF / DIASTOLIC AFIB HYPERCOAGULABLE STATE HYPOKALEMIA SEVERE CACHEXIA HYPERCALCEMIA SEPTIC JOINT vital signs Vital Sign Date Time Temp Pulse Resp B/P (MAP) Pulse Ox O2 Delivery O2 Flow Rate FiO2 02/25/25 10:11 168/80 02/25/25 10:10 61 02/25/25 08:24 96.8 19 97 96.8 02/24/25 20:00 Room Air* 0 21 Total Intake and Output 02/24/25 02/24/25 02/25/25 15:00 23:00 07:00 Intake Total 1000 ml 450 ml Output Total 1200 ml 1100 ml Balance -200 ml -650 ml medications Current Medications Medications Dose Ordered Sig/Irene Route Start Time Stop Time Status Last Admin Dose Admin Sodium Chloride 10 ml Q8HR IV 02/20/25 14:00 02/25/25 06:13 10 ML Acetaminophen 650 mg Q6HP PRN PO 02/20/25 14:00 Acetaminophen/ Hydrocodone Bitart 1 tab Q4HP PRN PO 02/20/25 14:00 02/25/25 02:48 1 TAB Hydromorphone HCl 0.5 mg Q4HP PRN IV 02/20/25 14:00 02/25/25 06:27 0.5 MG Ondansetron HCl 4 mg Q4HP PRN IV 02/20/25 14:00 Vancomycin HCl 0 ml @ 0 mls/hr UD IV 02/20/25 14:00 Vancomycin HCl 100 ml @ 100 mls/hr Q24H IV 02/21/25 06:00 02/25/25 06:23 100 MLS/HR Alprazolam 0.5 mg Q6HPRN PRN PO 02/21/25 14:30 02/21/25 20:57 0.5 MG Lactulose 30 ml BID PO 02/21/25 22:00 02/25/25 10:06 30 ML Alprazolam 0.5 mg BID PO 02/22/25 10:00 02/25/25 10:11 0.5 MG Aspirin 81 mg DAILY PO 02/22/25 10:00 02/22/25 09:39 81 MG Bupropion HCl 100 mg Q8HR PO 02/22/25 14:00 02/25/25 06:23 100 MG Cholecalciferol 1,000 unit DAILY PO 02/22/25 10:00 02/25/25 10:11 1,000 UNIT Pantoprazole Sodium 40 mg BID PO 02/22/25 10:00 02/25/25 10:07 40 MG Sucralfate 1 gm BID PO 02/22/25 10:00 02/25/25 10:06 1 GM Tramadol HCl 50 mg BID PO 02/22/25 10:00 02/25/25 10:07 50 MG Patient Own Medication 50 mg HS PO 02/22/25 22:00 UNV Patient Own Medication 1 tab DAILY PO 02/22/25 10:00 UNV Patient Own Medication 1 tab DAILY PO 02/22/25 10:00 UNV Patient Own Medication 1 tab DAILY PO 02/22/25 10:00 UNV Lisinopril 20 mg BID PO 02/22/25 10:00 02/25/25 10:11 20 MG Metoprolol Succinate 25 mg DAILY PO 02/22/25 10:00 02/25/25 10:10 25 MG Atorvastatin Calcium 20 mg HS PO 02/22/25 22:00 02/24/25 23:38 20 MG Amitriptyline HCl 50 mg HS PO 02/22/25 22:00 02/24/25 23:37 50 MG Levothyroxine Sodium 75 mcg QAM@0600 PO 02/23/25 06:00 02/25/25 06:23 75 MCG Potassium Chloride 20 meq DAILY PO 02/22/25 10:00 02/25/25 10:07 20 MEQ Furosemide 40 mg QAM PO 02/23/25 07:00 02/25/25 06:25 40 MG Cefepime HCl 50 ml @ 12.5 mls/hr Q12HR IV 02/22/25 22:00 02/25/25 10:15 12.5 MLS/HR Enoxaparin Sodium 40 mg DAILY SC 02/23/25 10:00 Iron Sucrose 110 ml @ 110 mls/hr DAILY@1200 IV 02/23/25 12:00 02/27/25 12:59 02/24/25 12:06 110 MLS/HR Hydralazine HCl 10 mg Q6HP PRN IV 02/23/25 13:30 02/24/25 14:15 10 MG Clonidine HCl 0.1 mg Q6HP PRN PO 02/23/25 16:45 02/24/25 12:06 0.1 MG objective HEENT: Head is atraumatic normocephalic, eyes PERRLA, ENT oropharynx moist and clear, neck supple, no tenderness, trachea midline, no masses no JVD. Chest: Denies chest pain, no diaphoresis, no mass adenopathy, no tenderness. Cardiac: Regular rate and rhythm, S1-S2 normal, no murmurs, no rubs or gallops. Pulmonary: No shortness of breath, lungs are clear to auscultation bilaterally, no wheezing, no rales or rhonchi. Abdomen: Soft, tender, nondistended, no masses, bowel sounds positive. Genitourinary: Denies dysuria, no urinary frequency, no hematuria. Skin: Skin warm and dry to touch no rash or lesion, no ulceration. Extremities: No clubbing, no edema, no tenderness, no varicosity. Neurologic: Grossly intact, no new focal motor deficit, no numbness or tingling. laboratory and microbiology Laboratory Tests 02/25/25 07:28 02/24/25 06:04 02/24/25 05:36 Test 02/24/25 06:04 Range/Units Serum Glucose 79 74-106 mg/dL Problem List NOW WITH KNEE EFFUSION HX OF SEPTIC JOINT S/P EXPLANTATION OF RIGHT KNEE PROSTHESIS WITH SPACERS NOW WITH CONFUSION METABOLIC ENCEPHALOPATHY SEVERE OSTEOARTHRITIS RIGHT KNEE EFFUSION LEUKOCYTOSIS ANEMIA PMH ORGANIC HEART DISEASE HTN CAD WITH HX OF PTCA STENT HX OF CHF HRpEF / DIASTOLIC AFIB HYPERCOAGULABLE STATE HYPOKALEMIA SEVERE CACHEXIA HYPERCALCEMIA ANEMIA REACTIVE THROMBOCYTOSIS Assessment/Plan s/p ARTHROCENTESIS CXR OF FLUID CONSIDER OPEN DEBRIDEMENT IF CONTINUED INFECTION NOW REQUIRE OPEN DEBRIDEMENT OF RIGHT NEWS EPOGEN PHYSICAL THERAPY WROTE FOR EPOGEN BUT PHARMACY HAS NOT GIVEN THE PT THE ORDERS WRITTEN IF EPOGEN IS NOT GIVEN PT MAY REQUIRE TRANSFUSION INSTEAD HCT 26% iron low retic count high esr high START IRON INFUSION IF LOCAL ORTHO CANNOT HANDLE THE INFECTION ID CONSIDER TRANSFER TO TERTIARY FACILITY Monitor Hydromorphone HCL 0.5 mg IV. Dietary Evaluation Review Comments: 1) Encourage optimal PO intake 2) Consider laxative and/or soluble fiber supplement PRN to resolve constipation 3) Follow-up with cardiology 4) Continue to monitor I&O, labs, and skin integrity Expected Outcomes/Goals: 1) appetite and labs to improve 2) f/u in 3-5 days Plan discussed with: Patient ANISH DIAZ MD Feb 25, 2025 13:11
[2025-02-25] MEDS: LIDOCAINE 2%HCL (LOCAL ANESTH.) INJ 10ml MDV ONE (15:05)
--- NOTE | 2025-02-25 16:12 | DVHPN2 ---
Progress Note Date Seen: Feb 25, 2025 Medical Necessity Reason Pt with a Central, PICC or Fol: Yes The following are medically ne: De Santiago Catheter Reason for de santiago catheter: Strict I&O Subjective Patient reports: No new complaints Review of Systems: HEENT:Normal, CVS:Normal, RESPIRATORY:Normal, GI:Normal, :Normal, MSK:Normal, NEURO:Normal Objective vital signs Vital Sign Date Time Temp Pulse Resp B/P (MAP) Pulse Ox O2 Delivery O2 Flow Rate FiO2 02/25/25 13:00 97.2 68 18 165/81 (109) 95 97.2 02/24/25 20:00 Room Air* 0 21 Total Intake and Output 02/24/25 02/24/25 02/25/25 15:00 23:00 07:00 Intake Total 1000 ml 450 ml Output Total 1200 ml 1100 ml Balance -200 ml -650 ml medications Current Medications Medications Dose Ordered Sig/Irene Route Start Time Stop Time Status Last Admin Dose Admin Sodium Chloride 10 ml Q8HR IV 02/20/25 14:00 02/25/25 06:13 10 ML Acetaminophen 650 mg Q6HP PRN PO 02/20/25 14:00 Acetaminophen/ Hydrocodone Bitart 1 tab Q4HP PRN PO 02/20/25 14:00 02/25/25 02:48 1 TAB Hydromorphone HCl 0.5 mg Q4HP PRN IV 02/20/25 14:00 02/25/25 06:27 0.5 MG Ondansetron HCl 4 mg Q4HP PRN IV 02/20/25 14:00 Vancomycin HCl 0 ml @ 0 mls/hr UD IV 02/20/25 14:00 Vancomycin HCl 100 ml @ 100 mls/hr Q24H IV 02/21/25 06:00 02/25/25 06:23 100 MLS/HR Alprazolam 0.5 mg Q6HPRN PRN PO 02/21/25 14:30 02/21/25 20:57 0.5 MG Lactulose 30 ml BID PO 02/21/25 22:00 02/25/25 10:06 30 ML Alprazolam 0.5 mg BID PO 02/22/25 10:00 02/25/25 10:11 0.5 MG Aspirin 81 mg DAILY PO 02/22/25 10:00 02/22/25 09:39 81 MG Bupropion HCl 100 mg Q8HR PO 02/22/25 14:00 02/25/25 14:50 100 MG Cholecalciferol 1,000 unit DAILY PO 02/22/25 10:00 02/25/25 10:11 1,000 UNIT Pantoprazole Sodium 40 mg BID PO 02/22/25 10:00 02/25/25 10:07 40 MG Sucralfate 1 gm BID PO 02/22/25 10:00 02/25/25 10:06 1 GM Tramadol HCl 50 mg BID PO 02/22/25 10:00 02/25/25 10:07 50 MG Patient Own Medication 50 mg HS PO 02/22/25 22:00 UNV Patient Own Medication 1 tab DAILY PO 02/22/25 10:00 UNV Patient Own Medication 1 tab DAILY PO 02/22/25 10:00 UNV Patient Own Medication 1 tab DAILY PO 02/22/25 10:00 UNV Lisinopril 20 mg BID PO 02/22/25 10:00 02/25/25 10:11 20 MG Metoprolol Succinate 25 mg DAILY PO 02/22/25 10:00 02/25/25 10:10 25 MG Atorvastatin Calcium 20 mg HS PO 02/22/25 22:00 02/24/25 23:38 20 MG Amitriptyline HCl 50 mg HS PO 02/22/25 22:00 02/24/25 23:37 50 MG Levothyroxine Sodium 75 mcg QAM@0600 PO 02/23/25 06:00 02/25/25 06:23 75 MCG Potassium Chloride 20 meq DAILY PO 02/22/25 10:00 02/25/25 10:07 20 MEQ Furosemide 40 mg QAM PO 02/23/25 07:00 02/25/25 06:25 40 MG Cefepime HCl 50 ml @ 12.5 mls/hr Q12HR IV 02/22/25 22:00 02/25/25 10:15 12.5 MLS/HR Enoxaparin Sodium 40 mg DAILY SC 02/23/25 10:00 Iron Sucrose 110 ml @ 110 mls/hr DAILY@1200 IV 02/23/25 12:00 02/27/25 12:59 02/25/25 14:42 110 MLS/HR Hydralazine HCl 10 mg Q6HP PRN IV 02/23/25 13:30 02/24/25 14:15 10 MG Clonidine HCl 0.1 mg Q6HP PRN PO 02/23/25 16:45 02/24/25 12:06 0.1 MG Examination: GENERAL:Normal, HEENT:Normal, NECK:Normal, LUNGS:Normal, CVS:Normal, ABDOMEN:Normal, MSK:Normal, MSK:Abnormal (right knee swelling), SKIN:Normal, NEURO:Normal, :Normal laboratory and microbiology Laboratory Tests 02/25/25 07:28 02/24/25 06:04 02/24/25 05:36 Test 02/24/25 06:04 Range/Units Serum Glucose 79 74-106 mg/dL Microbiology Date/Time Source Procedure Growth Status 02/21/25 01:15 Nose MRSA Screen - Final Complete 02/20/25 11:28 Blood Blood Culture - Final NO GROWTH AFTER 5 DAYS OF INCUBATION. Complete Problem List/Assessment/Plan Problem List/Assessment/Plan * Right knee infection secondary to pseudomonas, status post surgery: recurrent swelling, ortho eval, radiology drainage today * Anxiety. * Anemia: monitor * Coronary artery disease. * Hypertension. * Hypothyroidism. * Chronic diastolic heart failure. * Hyperlipidemia. advance care planning- full code- time spent 18 mins Plan discussed with: Other (rn) Dietary Evaluation Review Comments: 1) Encourage optimal PO intake 2) Consider laxative and/or soluble fiber supplement PRN to resolve constipation 3) Follow-up with cardiology 4) Continue to monitor I&O, labs, and skin integrity Expected Outcomes/Goals: 1) appetite and labs to improve 2) f/u in 3-5 days Date of Service: Feb 25, 2025 Billing Provider: ALDO MONDRAGON MD Common Visit Codes: [id number] INP/OBS CARE(HIGH) ALDO MONDRAGON MD Feb 25, 2025 16:12
--- NOTE | 2025-02-25 16:34 | DVH ---
XY FLUOROGUIDANCE FOR NEEDLE PLAC INDICATION: RT KNEE aspiration TECHNIQUE: Intraoperative fluoroscopic images were obtained TOTAL DOSE AREA PRODUCT: 104.56 uGy*m2 COMPARISON: US US GUIDANCE FOR NEEDLE PLACEME on DOS: 01/20/25 FINDINGS: Successful intraoperative fluoroscopic guidance. IMPRESSION: 1. Successful intraoperative fluoroscopic guidance and please follow up with surgical report.
[2025-02-26] VITALS (7 sets, daily range): BP systolic 121–179; BP diastolic 56–84; PULSE 57–68; RESP 15–20; TEMP 97.5–98; O2SAT 95–100
--- NOTE | 2025-02-26 07:51 | DVHPN2 ---
Progress Note Date Seen: Feb 26, 2025 Medical Necessity Reason Pt with a Central, PICC or Fol: Yes The following are medically ne: De Santiago Catheter Reason for de santiago catheter: Strict I&O Subjective Patient reports: No new complaints Objective vital signs Vital Sign Date Time Temp Pulse Resp B/P (MAP) Pulse Ox O2 Delivery O2 Flow Rate FiO2 02/26/25 06:59 152/66 02/26/25 05:00 97.5 62 17 100 97.5 02/25/25 20:00 Room Air* 0 21 Total Intake and Output 02/25/25 02/25/25 02/26/25 15:00 23:00 07:00 Intake Total 0 ml 1145 ml 595 ml Output Total 1200 ml 1000 ml Balance 0 ml -55 ml -405 ml medications Current Medications Medications Dose Ordered Sig/Irene Route Start Time Stop Time Status Last Admin Dose Admin Sodium Chloride 10 ml Q8HR IV 02/20/25 14:00 02/26/25 06:00 10 ML Acetaminophen 650 mg Q6HP PRN PO 02/20/25 14:00 Acetaminophen/ Hydrocodone Bitart 1 tab Q4HP PRN PO 02/20/25 14:00 02/25/25 20:09 1 TAB Hydromorphone HCl 0.5 mg Q4HP PRN IV 02/20/25 14:00 02/26/25 03:59 0.5 MG Ondansetron HCl 4 mg Q4HP PRN IV 02/20/25 14:00 Vancomycin HCl 0 ml @ 0 mls/hr UD IV 02/20/25 14:00 Vancomycin HCl 100 ml @ 100 mls/hr Q24H IV 02/21/25 06:00 02/26/25 06:59 100 MLS/HR Alprazolam 0.5 mg Q6HPRN PRN PO 02/21/25 14:30 02/21/25 20:57 0.5 MG Lactulose 30 ml BID PO 02/21/25 22:00 02/25/25 22:49 30 ML Alprazolam 0.5 mg BID PO 02/22/25 10:00 02/25/25 22:50 0.5 MG Aspirin 81 mg DAILY PO 02/22/25 10:00 02/22/25 09:39 81 MG Bupropion HCl 100 mg Q8HR PO 02/22/25 14:00 02/26/25 06:59 100 MG Cholecalciferol 1,000 unit DAILY PO 02/22/25 10:00 02/25/25 10:11 1,000 UNIT Pantoprazole Sodium 40 mg BID PO 02/22/25 10:00 02/25/25 22:50 40 MG Sucralfate 1 gm BID PO 02/22/25 10:00 02/25/25 22:52 1 GM Tramadol HCl 50 mg BID PO 02/22/25 10:00 02/25/25 22:50 50 MG Patient Own Medication 50 mg HS PO 02/22/25 22:00 UNV Patient Own Medication 1 tab DAILY PO 02/22/25 10:00 UNV Patient Own Medication 1 tab DAILY PO 02/22/25 10:00 UNV Patient Own Medication 1 tab DAILY PO 02/22/25 10:00 UNV Lisinopril 20 mg BID PO 02/22/25 10:00 02/25/25 22:51 20 MG Metoprolol Succinate 25 mg DAILY PO 02/22/25 10:00 02/25/25 10:10 25 MG Atorvastatin Calcium 20 mg HS PO 02/22/25 22:00 02/25/25 22:50 20 MG Amitriptyline HCl 50 mg HS PO 02/22/25 22:00 02/25/25 22:55 50 MG Levothyroxine Sodium 75 mcg QAM@0600 PO 02/23/25 06:00 02/26/25 06:58 75 MCG Potassium Chloride 20 meq DAILY PO 02/22/25 10:00 02/25/25 10:07 20 MEQ Furosemide 40 mg QAM PO 02/23/25 07:00 02/26/25 06:59 40 MG Cefepime HCl 50 ml @ 12.5 mls/hr Q12HR IV 02/22/25 22:00 02/25/25 22:49 12.5 MLS/HR Enoxaparin Sodium 40 mg DAILY SC 02/23/25 10:00 Iron Sucrose 110 ml @ 110 mls/hr DAILY@1200 IV 02/23/25 12:00 02/27/25 12:59 02/25/25 14:42 110 MLS/HR Hydralazine HCl 10 mg Q6HP PRN IV 02/23/25 13:30 02/26/25 03:58 10 MG Clonidine HCl 0.1 mg Q6HP PRN PO 02/23/25 16:45 02/24/25 12:06 0.1 MG Examination: MSK:Abnormal laboratory and microbiology Laboratory Tests 02/26/25 02:52 02/24/25 06:04 02/24/25 05:36 Test 02/24/25 06:04 Range/Units Serum Glucose 79 74-106 mg/dL Microbiology Date/Time Source Procedure Growth Status 02/21/25 01:15 Nose MRSA Screen - Final Complete 02/20/25 11:28 Blood Blood Culture - Final NO GROWTH AFTER 5 DAYS OF INCUBATION. Complete Problem List/Assessment/Plan Problem List/Assessment/Plan 84 yo F with chronic right knee infection 1. Patient currently has an antibiotic spacer 2. Right knee aspiration done -- will continue to follow results 3. based on results plan for I&D if any growth -- we are trying to salvage the leg to avoid an amputation 4. pain control Plan discussed with: Patient Dietary Evaluation Review Comments: 1) Encourage optimal PO intake 2) Consider laxative and/or soluble fiber supplement PRN to resolve constipation 3) Follow-up with cardiology 4) Continue to monitor I&O, labs, and skin integrity Expected Outcomes/Goals: 1) appetite and labs to improve 2) f/u in 3-5 days HERBERT FARRAR MD Feb 26, 2025 07:51
--- NOTE | 2025-02-26 11:59 | DVHPN2 ---
Reviewed: Care Plan, H&P, Labs, Medications, Previous Orders, Radiology Changes from previous H/P or p: No Changes Objective Vitals Vital Signs Date Time Temp Pulse Resp B/P (MAP) Pulse Ox O2 Delivery O2 Flow Rate FiO2 02/26/25 10:07 111/62 02/26/25 09:51 60 02/26/25 08:55 97.8 20 100 97.8 02/26/25 08:00 Room Air* 2 N/A Nasal Cannula* Intake/Output Intake and Output 02/26/25 07:00 Intake Total 1740 ml Output Total 2200 ml Balance -460 ml Intake Oral 1740 ml Output Urine Total 2200 ml Medications Current Medications Medications Dose Ordered Sig/Irene Route Start Time Stop Time Status Last Admin Dose Admin Sodium Chloride 10 ml Q8HR IV 02/20/25 14:00 02/26/25 06:00 10 ML Acetaminophen 650 mg Q6HP PRN PO 02/20/25 14:00 Acetaminophen/ Hydrocodone Bitart 1 tab Q4HP PRN PO 02/20/25 14:00 02/26/25 08:06 1 TAB Hydromorphone HCl 0.5 mg Q4HP PRN IV 02/20/25 14:00 02/26/25 03:59 0.5 MG Ondansetron HCl 4 mg Q4HP PRN IV 02/20/25 14:00 Vancomycin HCl 0 ml @ 0 mls/hr UD IV 02/20/25 14:00 Vancomycin HCl 100 ml @ 100 mls/hr Q24H IV 02/21/25 06:00 02/26/25 06:59 100 MLS/HR Alprazolam 0.5 mg Q6HPRN PRN PO 02/21/25 14:30 02/21/25 20:57 0.5 MG Lactulose 30 ml BID PO 02/21/25 22:00 02/26/25 09:45 30 ML Alprazolam 0.5 mg BID PO 02/22/25 10:00 02/26/25 09:52 0.5 MG Aspirin 81 mg DAILY PO 02/22/25 10:00 02/26/25 09:54 81 MG Bupropion HCl 100 mg Q8HR PO 02/22/25 14:00 02/26/25 06:59 100 MG Cholecalciferol 1,000 unit DAILY PO 02/22/25 10:00 02/26/25 09:52 1,000 UNIT Pantoprazole Sodium 40 mg BID PO 02/22/25 10:00 02/26/25 09:54 40 MG Sucralfate 1 gm BID PO 02/22/25 10:00 02/26/25 09:46 1 GM Tramadol HCl 50 mg BID PO 02/22/25 10:00 02/26/25 09:53 50 MG Patient Own Medication 50 mg HS PO 02/22/25 22:00 UNV Patient Own Medication 1 tab DAILY PO 02/22/25 10:00 UNV Patient Own Medication 1 tab DAILY PO 02/22/25 10:00 UNV Patient Own Medication 1 tab DAILY PO 02/22/25 10:00 UNV Lisinopril 20 mg BID PO 02/22/25 10:00 02/26/25 10:07 20 MG Metoprolol Succinate 25 mg DAILY PO 02/22/25 10:00 02/26/25 09:51 25 MG Atorvastatin Calcium 20 mg HS PO 02/22/25 22:00 02/25/25 22:50 20 MG Amitriptyline HCl 50 mg HS PO 02/22/25 22:00 02/25/25 22:55 50 MG Levothyroxine Sodium 75 mcg QAM@0600 PO 02/23/25 06:00 02/26/25 06:58 75 MCG Potassium Chloride 20 meq DAILY PO 02/22/25 10:00 02/26/25 09:53 20 MEQ Furosemide 40 mg QAM PO 02/23/25 07:00 02/26/25 06:59 40 MG Cefepime HCl 50 ml @ 12.5 mls/hr Q12HR IV 02/22/25 22:00 02/26/25 09:45 12.5 MLS/HR Enoxaparin Sodium 40 mg DAILY SC 02/23/25 10:00 02/26/25 09:46 40 MG Iron Sucrose 110 ml @ 110 mls/hr DAILY@1200 IV 02/23/25 12:00 02/27/25 12:59 02/25/25 14:42 110 MLS/HR Hydralazine HCl 10 mg Q6HP PRN IV 02/23/25 13:30 02/26/25 03:58 10 MG Clonidine HCl 0.1 mg Q6HP PRN PO 02/23/25 16:45 02/24/25 12:06 0.1 MG Laboratory Results Laboratory Tests 02/24/25 05:36 02/24/25 06:04 02/26/25 02:52 Urinalysis Test 02/22/25 14:51 Urine Color Colorless (Yellow) Urine Clarity Clear (Clear) Urine pH 7.0 (5.0-9.0) Urine Specific [place] 1.005 (1.001-1.035) Urine Protein Negative (Negative) Urine Ketones Negative (Negative) Urine Blood Trace /uL (Negative) H Urine Nitrite Negative (Negative) Urine Bilirubin Negative (Negative) Urine Urobilinogen Normal mg/dL (Negative) Urine Leukocyte Esterase Negative /uL (Negative) Urine RBC 1 /hpf (0 - 4) Urine Microscopic WBC 1 /HPF (0-5) Urine Squamous Epithelial Cells Few /hpf (<5) Urine Bacteria None seen /hpf (None Seen) Urine Glucose Normal mg/dL (Normal) Microbiology Microbiology Date/Time Source Procedure Growth Status 02/21/25 01:15 Nose MRSA Screen - Final Complete 02/20/25 11:28 Blood Blood Culture - Final NO GROWTH AFTER 5 DAYS OF INCUBATION. Complete Labs and/or images reviewed: Labs reviewed by me, Image(s) reviewed by me Assessment/Plan Assessment/Plan Covering For Dr. Siddiqi Septic right knee status post explantation of right knee prosthesis with spacer, status post surgery: recurrent swelling, aspiration done by , microbiology report pending, continue vancomycin and cefepime Metabolic encephalopathy Severe osteoarthritis Anxiety. Anemia: monitor iron infusion Coronary artery disease.Status post stents Hypertension. CAD with stents History of CHF AFib Hypothyroidism. Chronic diastolic heart failure. Hyperlipidemia. Cachexia Time spent 70 minutes Advanced care planning time 20 minutes Patient is full code Plan discussed with: Patient Date of Service: Feb 26, 2025 Billing Provider: INGRID LAU MD Common Visit Codes: [id number] CARE 30-74 MIN INGRID LAU MD Feb 26, 2025 11:59
--- NOTE | 2025-02-26 13:42 | DVHPN2 ---
Progress Note - Dictate Date Seen: Feb 26, 2025 Medical Necessity Reason Pt with a Central, PICC or Fol: Yes The following are medically ne: De Santiago Catheter Reason for de santiago catheter: Strict I&O Subjective HX OF SEPTIC JOINT S/P EXPLANTATION OF RIGHT KNEE PROSTHESIS WITH SPACERS NOW WITH CONFUSION METABOLIC ENCEPHALOPATHY SEVERE OSTEOARTHRITIS RIGHT KNEE EFFUSION LEUKOCYTOSIS ANEMIA PMH ORGANIC HEART DISEASE HTN CAD WITH HX OF PTCA STENT HX OF CHF HRpEF / DIASTOLIC AFIB HYPERCOAGULABLE STATE HYPOKALEMIA SEVERE CACHEXIA HYPERCALCEMIA SEPTIC JOINT vital signs Vital Sign Date Time Temp Pulse Resp B/P (MAP) Pulse Ox O2 Delivery O2 Flow Rate FiO2 02/26/25 10:07 111/62 02/26/25 09:51 60 02/26/25 08:55 97.8 20 100 97.8 02/26/25 08:00 Room Air* 2 N/A Nasal Cannula* Total Intake and Output 02/25/25 02/25/25 02/26/25 15:00 23:00 07:00 Intake Total 0 ml 1145 ml 595 ml Output Total 1200 ml 1000 ml Balance 0 ml -55 ml -405 ml medications Current Medications Medications Dose Ordered Sig/Irene Route Start Time Stop Time Status Last Admin Dose Admin Sodium Chloride 10 ml Q8HR IV 02/20/25 14:00 02/26/25 06:00 10 ML Acetaminophen 650 mg Q6HP PRN PO 02/20/25 14:00 Acetaminophen/ Hydrocodone Bitart 1 tab Q4HP PRN PO 02/20/25 14:00 02/26/25 08:06 1 TAB Hydromorphone HCl 0.5 mg Q4HP PRN IV 02/20/25 14:00 02/26/25 03:59 0.5 MG Ondansetron HCl 4 mg Q4HP PRN IV 02/20/25 14:00 Vancomycin HCl 0 ml @ 0 mls/hr UD IV 02/20/25 14:00 Vancomycin HCl 100 ml @ 100 mls/hr Q24H IV 02/21/25 06:00 02/26/25 06:59 100 MLS/HR Alprazolam 0.5 mg Q6HPRN PRN PO 02/21/25 14:30 02/21/25 20:57 0.5 MG Lactulose 30 ml BID PO 02/21/25 22:00 02/26/25 09:45 30 ML Alprazolam 0.5 mg BID PO 02/22/25 10:00 02/26/25 09:52 0.5 MG Aspirin 81 mg DAILY PO 02/22/25 10:00 02/26/25 09:54 81 MG Bupropion HCl 100 mg Q8HR PO 02/22/25 14:00 02/26/25 06:59 100 MG Cholecalciferol 1,000 unit DAILY PO 02/22/25 10:00 02/26/25 09:52 1,000 UNIT Pantoprazole Sodium 40 mg BID PO 02/22/25 10:00 02/26/25 09:54 40 MG Sucralfate 1 gm BID PO 02/22/25 10:00 02/26/25 09:46 1 GM Tramadol HCl 50 mg BID PO 02/22/25 10:00 02/26/25 09:53 50 MG Patient Own Medication 50 mg HS PO 02/22/25 22:00 UNV Patient Own Medication 1 tab DAILY PO 02/22/25 10:00 UNV Patient Own Medication 1 tab DAILY PO 02/22/25 10:00 UNV Patient Own Medication 1 tab DAILY PO 02/22/25 10:00 UNV Lisinopril 20 mg BID PO 02/22/25 10:00 02/26/25 10:07 20 MG Metoprolol Succinate 25 mg DAILY PO 02/22/25 10:00 02/26/25 09:51 25 MG Atorvastatin Calcium 20 mg HS PO 02/22/25 22:00 02/25/25 22:50 20 MG Amitriptyline HCl 50 mg HS PO 02/22/25 22:00 02/25/25 22:55 50 MG Levothyroxine Sodium 75 mcg QAM@0600 PO 02/23/25 06:00 02/26/25 06:58 75 MCG Potassium Chloride 20 meq DAILY PO 02/22/25 10:00 02/26/25 09:53 20 MEQ Furosemide 40 mg QAM PO 02/23/25 07:00 02/26/25 06:59 40 MG Cefepime HCl 50 ml @ 12.5 mls/hr Q12HR IV 02/22/25 22:00 02/26/25 09:45 12.5 MLS/HR Enoxaparin Sodium 40 mg DAILY SC 02/23/25 10:00 02/26/25 09:46 40 MG Iron Sucrose 110 ml @ 110 mls/hr DAILY@1200 IV 02/23/25 12:00 02/27/25 12:59 02/26/25 12:26 110 MLS/HR Hydralazine HCl 10 mg Q6HP PRN IV 02/23/25 13:30 02/26/25 03:58 10 MG Clonidine HCl 0.1 mg Q6HP PRN PO 02/23/25 16:45 02/24/25 12:06 0.1 MG objective HEENT: Head is atraumatic normocephalic, eyes PERRLA, ENT oropharynx moist and clear, neck supple, no tenderness, trachea midline, no masses no JVD. Chest: Denies chest pain, no diaphoresis, no mass adenopathy, no tenderness. Cardiac: Regular rate and rhythm, S1-S2 normal, no murmurs, no rubs or gallops. Pulmonary: No shortness of breath, lungs are clear to auscultation bilaterally, no wheezing, no rales or rhonchi. Abdomen: Soft, tender, nondistended, no masses, bowel sounds positive. Genitourinary: Denies dysuria, no urinary frequency, no hematuria. Skin: Skin warm and dry to touch no rash or lesion, no ulceration. Extremities: No clubbing, no edema, no tenderness, no varicosity. Neurologic: Grossly intact, no new focal motor deficit, no numbness or tingling. laboratory and microbiology Laboratory Tests 02/26/25 02:52 02/24/25 06:04 02/24/25 05:36 Test 02/24/25 06:04 Range/Units Serum Glucose 79 74-106 mg/dL Problem List NOW WITH KNEE EFFUSION HX OF SEPTIC JOINT S/P EXPLANTATION OF RIGHT KNEE PROSTHESIS WITH SPACERS NOW WITH CONFUSION METABOLIC ENCEPHALOPATHY SEVERE OSTEOARTHRITIS RIGHT KNEE EFFUSION LEUKOCYTOSIS ANEMIA PMH ORGANIC HEART DISEASE HTN CAD WITH HX OF PTCA STENT HX OF CHF HRpEF / DIASTOLIC AFIB HYPERCOAGULABLE STATE HYPOKALEMIA SEVERE CACHEXIA HYPERCALCEMIA ANEMIA REACTIVE THROMBOCYTOSIS Assessment/Plan s/p ARTHROCENTESIS CXR OF FLUID CONSIDER OPEN DEBRIDEMENT IF CONTINUED INFECTION NOW REQUIRE OPEN DEBRIDEMENT OF RIGHT NEWS EPOGEN PHYSICAL THERAPY WROTE FOR EPOGEN BUT PHARMACY HAS NOT GIVEN THE PT THE ORDERS WRITTEN IF EPOGEN IS NOT GIVEN PT MAY REQUIRE TRANSFUSION INSTEAD HCT 26% iron low retic count high esr high START IRON INFUSION IF LOCAL ORTHO CANNOT HANDLE THE INFECTION ID CONSIDER TRANSFER TO TERTIARY FACILITY Dietary Evaluation Review Comments: 1) Encourage optimal PO intake 2) Consider laxative and/or soluble fiber supplement PRN to resolve constipation 3) Follow-up with cardiology 4) Continue to monitor I&O, labs, and skin integrity Expected Outcomes/Goals: 1) appetite and labs to improve 2) f/u in 3-5 days Plan discussed with: Patient ANISH DIAZ MD Feb 26, 2025 13:42
[2025-02-27] VITALS (7 sets, daily range): BP systolic 103–167; BP diastolic 60–81; PULSE 63–76; RESP 16–20; TEMP 97.5–98.7; O2SAT 95–99
[2025-02-27 06:14] LABS: Hemoglobin 10.0 g/dL (12.2-16.2); Mean Corpuscular Volume 83.6 fL (80.0-100.0); Nucleated Red Blood Cells % 0.1 %
[2025-02-27 06:21] LABS: Hematocrit 30.7 % (36.0-46.0); Mean Corpuscular Hemoglobin 27.3 pg (28.0-32.0)
--- NOTE | 2025-02-27 09:44 | DVHPN2 ---
Reviewed: Care Plan, H&P, Labs, Medications, Previous Orders, Radiology Changes from previous H/P or p: No Changes Objective Vitals Vital Signs Date Time Temp Pulse Resp B/P (MAP) Pulse Ox O2 Delivery O2 Flow Rate FiO2 02/27/25 09:03 98.7 70 18 137/74 (95) 95 98.7 02/26/25 20:00 Room Air* 0 21 Intake/Output Intake and Output 02/27/25 07:00 Intake Total 1254 ml Output Total 1000 ml Balance 254 ml Intake Oral 1154 ml IV Total 100 ml Output Urine Total 1000 ml # Bowel Movements 1 Medications Current Medications Medications Dose Ordered Sig/Irene Route Start Time Stop Time Status Last Admin Dose Admin Sodium Chloride 10 ml Q8HR IV 02/20/25 14:00 02/27/25 05:54 10 ML Acetaminophen 650 mg Q6HP PRN PO 02/20/25 14:00 Acetaminophen/ Hydrocodone Bitart 1 tab Q4HP PRN PO 02/20/25 14:00 02/26/25 20:02 1 TAB Hydromorphone HCl 0.5 mg Q4HP PRN IV 02/20/25 14:00 02/27/25 05:17 0.5 MG Ondansetron HCl 4 mg Q4HP PRN IV 02/20/25 14:00 Vancomycin HCl 0 ml @ 0 mls/hr UD IV 02/20/25 14:00 Vancomycin HCl 100 ml @ 100 mls/hr Q24H IV 02/21/25 06:00 02/27/25 05:53 100 MLS/HR Alprazolam 0.5 mg Q6HPRN PRN PO 02/21/25 14:30 02/21/25 20:57 0.5 MG Lactulose 30 ml BID PO 02/21/25 22:00 02/26/25 21:39 30 ML Alprazolam 0.5 mg BID PO 02/22/25 10:00 02/26/25 21:39 0.5 MG Aspirin 81 mg DAILY PO 02/22/25 10:00 02/26/25 09:54 81 MG Bupropion HCl 100 mg Q8HR PO 02/22/25 14:00 02/27/25 05:53 100 MG Cholecalciferol 1,000 unit DAILY PO 02/22/25 10:00 02/26/25 09:52 1,000 UNIT Pantoprazole Sodium 40 mg BID PO 02/22/25 10:00 02/26/25 21:41 40 MG Sucralfate 1 gm BID PO 02/22/25 10:00 02/26/25 21:39 1 GM Tramadol HCl 50 mg BID PO 02/22/25 10:00 02/26/25 21:41 50 MG Patient Own Medication 50 mg HS PO 02/22/25 22:00 UNV Patient Own Medication 1 tab DAILY PO 02/22/25 10:00 UNV Patient Own Medication 1 tab DAILY PO 02/22/25 10:00 UNV Patient Own Medication 1 tab DAILY PO 02/22/25 10:00 UNV Lisinopril 20 mg BID PO 02/22/25 10:00 02/26/25 21:41 20 MG Metoprolol Succinate 25 mg DAILY PO 02/22/25 10:00 02/26/25 09:51 25 MG Atorvastatin Calcium 20 mg HS PO 02/22/25 22:00 02/26/25 21:41 20 MG Amitriptyline HCl 50 mg HS PO 02/22/25 22:00 02/26/25 21:39 50 MG Levothyroxine Sodium 75 mcg QAM@0600 PO 02/23/25 06:00 02/27/25 05:53 75 MCG Potassium Chloride 20 meq DAILY PO 02/22/25 10:00 02/26/25 09:53 20 MEQ Furosemide 40 mg QAM PO 02/23/25 07:00 02/27/25 05:54 40 MG Cefepime HCl 50 ml @ 12.5 mls/hr Q12HR IV 02/22/25 22:00 02/26/25 21:39 12.5 MLS/HR Enoxaparin Sodium 40 mg DAILY SC 02/23/25 10:00 02/26/25 09:46 40 MG Iron Sucrose 110 ml @ 110 mls/hr DAILY@1200 IV 02/23/25 12:00 02/27/25 12:59 02/26/25 12:26 110 MLS/HR Hydralazine HCl 10 mg Q6HP PRN IV 02/23/25 13:30 02/26/25 03:58 10 MG Clonidine HCl 0.1 mg Q6HP PRN PO 02/23/25 16:45 02/27/25 06:12 0.1 MG Laboratory Results Laboratory Tests 02/24/25 06:04 02/27/25 04:45 Urinalysis Test 02/22/25 14:51 Urine Color Colorless (Yellow) Urine Clarity Clear (Clear) Urine pH 7.0 (5.0-9.0) Urine Specific [place] 1.005 (1.001-1.035) Urine Protein Negative (Negative) Urine Ketones Negative (Negative) Urine Blood Trace /uL (Negative) H Urine Nitrite Negative (Negative) Urine Bilirubin Negative (Negative) Urine Urobilinogen Normal mg/dL (Negative) Urine Leukocyte Esterase Negative /uL (Negative) Urine RBC 1 /hpf (0 - 4) Urine Microscopic WBC 1 /HPF (0-5) Urine Squamous Epithelial Cells Few /hpf (<5) Urine Bacteria None seen /hpf (None Seen) Urine Glucose Normal mg/dL (Normal) Microbiology Microbiology Date/Time Source Procedure Growth Status 02/25/25 16:15 Knee Right Gram Stain - Final Resulted 02/25/25 16:15 Knee Right Wound Culture - Preliminary Resulted 02/20/25 11:28 Blood Blood Culture - Final NO GROWTH AFTER 5 DAYS OF INCUBATION. Complete Labs and/or images reviewed: Labs reviewed by me, Image(s) reviewed by me Assessment/Plan Assessment/Plan Covering For Dr. Siddiqi Septic right knee status post explantation of right knee prosthesis with spacer, status post surgery: recurrent swelling, aspiration done by , microbiology report pending, continue vancomycin and cefepime Metabolic encephalopathy Severe osteoarthritis Anxiety. Anemia: Hemoglobin 10.0. monitor, iron infusion ordered Coronary artery disease.Status post stents Hypertension. CAD with stents History of CHF AFib Hypothyroidism. Chronic diastolic heart failure. Hyperlipidemia. Cachexia Time spent 55 minutes Advanced care planning time 20 minutes Patient is full code Physical therapy ordered Plan discussed with: Patient Date of Service: Feb 27, 2025 Billing Provider: INGRID LAU MD Common Visit Codes: [id number] INP/OBS CARE(HIGH) INGRID LAU MD Feb 27, 2025 09:44
[2025-02-28] VITALS (8 sets, daily range): BP systolic 114–177; BP diastolic 55–87; PULSE 53–71; RESP 16–20; TEMP 96.8–98.2; O2SAT 94–98
[2025-02-28 05:38] LABS: Hematocrit 29.8 % (36.0-46.0); Hemoglobin 10.0 g/dL (12.2-16.2); Mean Corpuscular Hemoglobin 28.1 pg (28.0-32.0); Mean Corpuscular Volume 83.8 fL (80.0-100.0); Nucleated Red Blood Cells % 0.0 %
[2025-02-28 07:59] LABS: Anisocytosis Moderate
--- NOTE | 2025-02-28 11:03 | DVHPN2 ---
Reviewed: Care Plan, H&P, Labs, Medications, Previous Orders, Radiology Objective Vitals Vital Signs Date Time Temp Pulse Resp B/P (MAP) Pulse Ox O2 Delivery O2 Flow Rate FiO2 02/28/25 10:08 66 168/74 02/28/25 08:37 98.0 20 97 98.0 02/28/25 07:55 Room Air* 0 21 Intake/Output Intake and Output 02/28/25 07:00 Intake Total 1245 ml Output Total 2500 ml Balance -1255 ml Intake Oral 1195 ml IV Total 50 ml Output Urine Total 2500 ml Medications Current Medications Medications Dose Ordered Sig/Irene Route Start Time Stop Time Status Last Admin Dose Admin Sodium Chloride 10 ml Q8HR IV 02/20/25 14:00 02/28/25 06:29 10 ML Acetaminophen 650 mg Q6HP PRN PO 02/20/25 14:00 Acetaminophen/ Hydrocodone Bitart 1 tab Q4HP PRN PO 02/20/25 14:00 02/28/25 10:07 1 TAB Hydromorphone HCl 0.5 mg Q4HP PRN IV 02/20/25 14:00 02/27/25 17:30 0.5 MG Ondansetron HCl 4 mg Q4HP PRN IV 02/20/25 14:00 Vancomycin HCl 0 ml @ 0 mls/hr UD IV 02/20/25 14:00 Alprazolam 0.5 mg Q6HPRN PRN PO 02/21/25 14:30 02/21/25 20:57 0.5 MG Lactulose 30 ml BID PO 02/21/25 22:00 02/28/25 10:09 30 ML Alprazolam 0.5 mg BID PO 02/22/25 10:00 02/28/25 10:04 0.5 MG Aspirin 81 mg DAILY PO 02/22/25 10:00 02/28/25 10:06 81 MG Bupropion HCl 100 mg Q8HR PO 02/22/25 14:00 02/28/25 06:22 100 MG Cholecalciferol 1,000 unit DAILY PO 02/22/25 10:00 02/28/25 10:16 1,000 UNIT Pantoprazole Sodium 40 mg BID PO 02/22/25 10:00 02/28/25 10:05 40 MG Sucralfate 1 gm BID PO 02/22/25 10:00 02/28/25 10:08 1 GM Tramadol HCl 50 mg BID PO 02/22/25 10:00 02/28/25 10:06 50 MG Patient Own Medication 50 mg HS PO 02/22/25 22:00 UNV Patient Own Medication 1 tab DAILY PO 02/22/25 10:00 UNV Patient Own Medication 1 tab DAILY PO 02/22/25 10:00 UNV Patient Own Medication 1 tab DAILY PO 02/22/25 10:00 UNV Lisinopril 20 mg BID PO 02/22/25 10:00 02/28/25 10:06 20 MG Metoprolol Succinate 25 mg DAILY PO 02/22/25 10:00 02/28/25 10:08 25 MG Atorvastatin Calcium 20 mg HS PO 02/22/25 22:00 02/27/25 22:21 20 MG Amitriptyline HCl 50 mg HS PO 02/22/25 22:00 02/27/25 22:21 50 MG Levothyroxine Sodium 75 mcg QAM@0600 PO 02/23/25 06:00 02/28/25 06:20 75 MCG Potassium Chloride 20 meq DAILY PO 02/22/25 10:00 02/28/25 10:08 20 MEQ Furosemide 40 mg QAM PO 02/23/25 07:00 02/28/25 06:21 40 MG Cefepime HCl 50 ml @ 12.5 mls/hr Q12HR IV 02/22/25 22:00 02/28/25 10:04 12.5 MLS/HR Enoxaparin Sodium 40 mg DAILY SC 02/23/25 10:00 02/28/25 10:10 40 MG Hydralazine HCl 10 mg Q6HP PRN IV 02/23/25 13:30 02/26/25 03:58 10 MG Clonidine HCl 0.1 mg Q6HP PRN PO 02/23/25 16:45 02/28/25 06:29 0.1 MG Laboratory Results Laboratory Tests 02/24/25 06:04 02/28/25 05:15 Urinalysis Test 02/22/25 14:51 Urine Color Colorless (Yellow) Urine Clarity Clear (Clear) Urine pH 7.0 (5.0-9.0) Urine Specific [place] 1.005 (1.001-1.035) Urine Protein Negative (Negative) Urine Ketones Negative (Negative) Urine Blood Trace /uL (Negative) H Urine Nitrite Negative (Negative) Urine Bilirubin Negative (Negative) Urine Urobilinogen Normal mg/dL (Negative) Urine Leukocyte Esterase Negative /uL (Negative) Urine RBC 1 /hpf (0 - 4) Urine Microscopic WBC 1 /HPF (0-5) Urine Squamous Epithelial Cells Few /hpf (<5) Urine Bacteria None seen /hpf (None Seen) Urine Glucose Normal mg/dL (Normal) Microbiology Microbiology Date/Time Source Procedure Growth Status 02/25/25 16:15 Knee Right Gram Stain - Final Resulted 02/25/25 16:15 Knee Right Wound Culture - Preliminary Resulted 02/20/25 11:28 Blood Blood Culture - Final NO GROWTH AFTER 5 DAYS OF INCUBATION. Complete Labs and/or images reviewed: Labs reviewed by me, Image(s) reviewed by me Assessment/Plan Assessment/Plan Covering For Dr. Siddiqi Septic right knee status post explantation of right knee prosthesis with spacer, status post surgery: recurrent swelling, aspiration done by , wound culture negative preliminary report, continue vancomycin and cefepime Metabolic encephalopathy Severe osteoarthritis Anxiety. Anemia: Hemoglobin 10.0. monitor, iron infusion ordered Coronary artery disease.Status post stents Hypertension. CAD with stents History of CHF AFib Hypothyroidism. Chronic diastolic heart failure. Hyperlipidemia. Cachexia Time spent 55 minutes Advanced care planning time 20 minutes Patient is full code Physical therapy ordered My Orders Orders - INGRID LAU MD Procedure Category Date Status Time * Wound Consult CONS 02/27/25 Transmitted INGRID LAU MD Feb 28, 2025 11:03
[2025-03-01 01:00] VITALS: BP 178/72; PULSE 61; RESP 18; TEMP 96; O2SAT 98
[2025-03-01 07:16] LABS: Hemoglobin 10.0 g/dL (12.2-16.2); Nucleated Red Blood Cells % 0.0 %
[2025-03-01 07:22] LABS: Hematocrit 29.7 % (36.0-46.0); Mean Corpuscular Hemoglobin 28.1 pg (28.0-32.0); Mean Corpuscular Volume 83.8 fL (80.0-100.0)
[2025-03-01 08:00] VITALS: PULSE 53; RESP 16; O2SAT 98
[2025-03-01 09:00] VITALS: BP 132/61; PULSE 62; RESP 16; TEMP 97.8; O2SAT 98
[2025-03-01] MEDS: VANCOMYCIN 750MG KIT 100 ML IV ONE (10:07)
--- NOTE | 2025-03-01 12:35 | DVHPN2 ---
Reviewed: Care Plan, H&P, Labs, Medications, Previous Orders, Radiology Changes from previous H/P or p: No Changes Objective Vitals Vital Signs Date Time Temp Pulse Resp B/P (MAP) Pulse Ox O2 Delivery O2 Flow Rate FiO2 03/01/25 10:22 62 132/61 03/01/25 09:00 97.8 16 98 97.8 02/28/25 20:00 Room Air* 0 21 Intake/Output Intake and Output 03/01/25 07:00 Intake Total 2520 ml Output Total 1500 ml Balance 1020 ml Intake Oral 2470 ml IV Total 50 ml Output Urine Total 1500 ml # Voids 1 Medications Current Medications Medications Dose Ordered Sig/Irene Route Start Time Stop Time Status Last Admin Dose Admin Sodium Chloride 10 ml Q8HR IV 02/20/25 14:00 03/01/25 06:16 10 ML Acetaminophen 650 mg Q6HP PRN PO 02/20/25 14:00 Acetaminophen/ Hydrocodone Bitart 1 tab Q4HP PRN PO 02/20/25 14:00 03/01/25 06:46 1 TAB Hydromorphone HCl 0.5 mg Q4HP PRN IV 02/20/25 14:00 02/27/25 17:30 0.5 MG Ondansetron HCl 4 mg Q4HP PRN IV 02/20/25 14:00 Vancomycin HCl 0 ml @ 0 mls/hr UD IV 02/20/25 14:00 Alprazolam 0.5 mg Q6HPRN PRN PO 02/21/25 14:30 02/21/25 20:57 0.5 MG Lactulose 30 ml BID PO 02/21/25 22:00 03/01/25 10:08 30 ML Alprazolam 0.5 mg BID PO 02/22/25 10:00 03/01/25 10:10 0.5 MG Aspirin 81 mg DAILY PO 02/22/25 10:00 03/01/25 10:10 81 MG Bupropion HCl 100 mg Q8HR PO 02/22/25 14:00 03/01/25 06:15 100 MG Cholecalciferol 1,000 unit DAILY PO 02/22/25 10:00 03/01/25 10:08 1,000 UNIT Pantoprazole Sodium 40 mg BID PO 02/22/25 10:00 03/01/25 10:08 40 MG Sucralfate 1 gm BID PO 02/22/25 10:00 03/01/25 10:10 1 GM Tramadol HCl 50 mg BID PO 02/22/25 10:00 03/01/25 10:09 50 MG Patient Own Medication 50 mg HS PO 02/22/25 22:00 UNV Patient Own Medication 1 tab DAILY PO 02/22/25 10:00 UNV Patient Own Medication 1 tab DAILY PO 02/22/25 10:00 UNV Patient Own Medication 1 tab DAILY PO 02/22/25 10:00 UNV Lisinopril 20 mg BID PO 02/22/25 10:00 02/28/25 21:52 20 MG Metoprolol Succinate 25 mg DAILY PO 02/22/25 10:00 03/01/25 10:22 25 MG Atorvastatin Calcium 20 mg HS PO 02/22/25 22:00 02/28/25 21:52 20 MG Amitriptyline HCl 50 mg HS PO 02/22/25 22:00 02/28/25 21:51 50 MG Levothyroxine Sodium 75 mcg QAM@0600 PO 02/23/25 06:00 03/01/25 06:15 75 MCG Potassium Chloride 20 meq DAILY PO 02/22/25 10:00 03/01/25 10:23 20 MEQ Furosemide 40 mg QAM PO 02/23/25 07:00 03/01/25 06:15 40 MG Cefepime HCl 50 ml @ 12.5 mls/hr Q12HR IV 02/22/25 22:00 03/01/25 12:28 12.5 MLS/HR Enoxaparin Sodium 40 mg DAILY SC 02/23/25 10:00 03/01/25 10:08 40 MG Hydralazine HCl 10 mg Q6HP PRN IV 02/23/25 13:30 03/01/25 06:16 10 MG Clonidine HCl 0.1 mg Q6HP PRN PO 02/23/25 16:45 02/28/25 06:29 0.1 MG Laboratory Results Laboratory Tests 02/24/25 06:04 03/01/25 06:42 Urinalysis Test 02/22/25 14:51 Urine Color Colorless (Yellow) Urine Clarity Clear (Clear) Urine pH 7.0 (5.0-9.0) Urine Specific [place] 1.005 (1.001-1.035) Urine Protein Negative (Negative) Urine Ketones Negative (Negative) Urine Blood Trace /uL (Negative) H Urine Nitrite Negative (Negative) Urine Bilirubin Negative (Negative) Urine Urobilinogen Normal mg/dL (Negative) Urine Leukocyte Esterase Negative /uL (Negative) Urine RBC 1 /hpf (0 - 4) Urine Microscopic WBC 1 /HPF (0-5) Urine Squamous Epithelial Cells Few /hpf (<5) Urine Bacteria None seen /hpf (None Seen) Urine Glucose Normal mg/dL (Normal) Microbiology Microbiology Date/Time Source Procedure Growth Status 02/25/25 16:15 Knee Right Gram Stain - Final Resulted 02/25/25 16:15 Knee Right Wound Culture - Preliminary Resulted 02/20/25 11:28 Blood Blood Culture - Final NO GROWTH AFTER 5 DAYS OF INCUBATION. Complete Labs and/or images reviewed: Labs reviewed by me, Image(s) reviewed by me Assessment/Plan Assessment/Plan Covering For Dr. Siddiqi Septic right knee status post explantation of right knee prosthesis with spacer, status post surgery: recurrent swelling, aspiration done by , wound culture negative preliminary report, continue vancomycin and cefepime Metabolic encephalopathy Severe osteoarthritis Anxiety. Anemia: Hemoglobin 10.0. monitor, iron infusion ordered Coronary artery disease.Status post stents Hypertension. CAD with stents History of CHF AFib Hypothyroidism. Chronic diastolic heart failure. Hyperlipidemia. Cachexia Time spent 55 minutes Advanced care planning time 20 minutes Patient is full code Physical therapy ordered Plan discussed with: Patient Date of Service: Mar 01, 2025 Billing Provider: INGRID LAU MD Common Visit Codes: [id number] INP/OBS CARE(HIGH) INGRID LAU MD Mar 01, 2025 12:35
[2025-03-01 12:37] VITALS: BP 109/54; PULSE 53; RESP 16; TEMP 97.8; O2SAT 97
[2025-03-01 17:00] VITALS: BP 130/71; PULSE 63; RESP 16; TEMP 97.9; O2SAT 94
[2025-03-01] MEDS: ACETAMINOPHEN 325 MG TAB PO PRN (18:42)
[2025-03-01 21:00] VITALS: BP 161/76; PULSE 58; RESP 20; TEMP 97.2; O2SAT 97
[2025-03-02] VITALS (8 sets, daily range): BP systolic 141–176; BP diastolic 64–74; PULSE 53–63; RESP 17–19; TEMP 97–98.6; O2SAT 97–100
[2025-03-02] MEDS: KETOROLAC TROMETH 30 MG/ML 1ML VIAL IV ONE (04:49)
--- NOTE | 2025-03-02 09:03 | DVHPN2 ---
Progress Note - Dictate Date Seen: Mar 02, 2025 Medical Necessity Reason Pt with a Central, PICC or Fol: Yes The following are medically ne: De Santiago Catheter Reason for de santiago catheter: Strict I&O Subjective HX OF SEPTIC JOINT S/P EXPLANTATION OF RIGHT KNEE PROSTHESIS WITH SPACERS NOW WITH CONFUSION METABOLIC ENCEPHALOPATHY SEVERE OSTEOARTHRITIS RIGHT KNEE EFFUSION LEUKOCYTOSIS ANEMIA PMH ORGANIC HEART DISEASE HTN CAD WITH HX OF PTCA STENT HX OF CHF HRpEF / DIASTOLIC AFIB HYPERCOAGULABLE STATE HYPOKALEMIA SEVERE CACHEXIA HYPERCALCEMIA SEPTIC JOINT vital signs Vital Sign Date Time Temp Pulse Resp B/P (MAP) Pulse Ox O2 Delivery O2 Flow Rate FiO2 03/02/25 06:08 168/73 03/02/25 05:00 97.0 59 19 100 97.0 03/01/25 20:00 Room Air* 0 21 Total Intake and Output 03/01/25 03/01/25 03/02/25 15:00 23:00 07:00 Intake Total 800 ml 450 ml Output Total 1100 ml 850 ml Balance -300 ml -400 ml medications Current Medications Medications Dose Ordered Sig/Irene Route Start Time Stop Time Status Last Admin Dose Admin Sodium Chloride 10 ml Q8HR IV 02/20/25 14:00 03/02/25 06:09 10 ML Acetaminophen 650 mg Q6HP PRN PO 02/20/25 14:00 03/02/25 04:29 650 MG Ondansetron HCl 4 mg Q4HP PRN IV 02/20/25 14:00 Vancomycin HCl 0 ml @ 0 mls/hr UD IV 02/20/25 14:00 Alprazolam 0.5 mg Q6HPRN PRN PO 02/21/25 14:30 02/21/25 20:57 0.5 MG Lactulose 30 ml BID PO 02/21/25 22:00 03/01/25 21:13 30 ML Alprazolam 0.5 mg BID PO 02/22/25 10:00 03/01/25 21:12 0.5 MG Aspirin 81 mg DAILY PO 02/22/25 10:00 03/01/25 10:10 81 MG Bupropion HCl 100 mg Q8HR PO 02/22/25 14:00 03/02/25 06:08 100 MG Cholecalciferol 1,000 unit DAILY PO 02/22/25 10:00 03/01/25 10:08 1,000 UNIT Pantoprazole Sodium 40 mg BID PO 02/22/25 10:00 03/01/25 21:12 40 MG Sucralfate 1 gm BID PO 02/22/25 10:00 03/01/25 21:11 1 GM Tramadol HCl 50 mg BID PO 02/22/25 10:00 03/01/25 21:12 50 MG Patient Own Medication 50 mg HS PO 02/22/25 22:00 UNV Patient Own Medication 1 tab DAILY PO 02/22/25 10:00 UNV Patient Own Medication 1 tab DAILY PO 02/22/25 10:00 UNV Patient Own Medication 1 tab DAILY PO 02/22/25 10:00 UNV Lisinopril 20 mg BID PO 02/22/25 10:00 03/01/25 21:14 20 MG Metoprolol Succinate 25 mg DAILY PO 02/22/25 10:00 03/01/25 10:22 25 MG Atorvastatin Calcium 20 mg HS PO 02/22/25 22:00 03/01/25 21:12 20 MG Amitriptyline HCl 50 mg HS PO 02/22/25 22:00 03/01/25 21:12 50 MG Levothyroxine Sodium 75 mcg QAM@0600 PO 02/23/25 06:00 03/02/25 06:08 75 MCG Potassium Chloride 20 meq DAILY PO 02/22/25 10:00 03/01/25 10:23 20 MEQ Furosemide 40 mg QAM PO 02/23/25 07:00 03/02/25 06:08 40 MG Cefepime HCl 50 ml @ 12.5 mls/hr Q12HR IV 02/22/25 22:00 03/01/25 21:29 12.5 MLS/HR Enoxaparin Sodium 40 mg DAILY SC 02/23/25 10:00 03/01/25 10:08 40 MG Hydralazine HCl 10 mg Q6HP PRN IV 02/23/25 13:30 03/01/25 06:16 10 MG Clonidine HCl 0.1 mg Q6HP PRN PO 02/23/25 16:45 03/02/25 04:30 0.1 MG objective HEENT: Head is atraumatic normocephalic, eyes PERRLA, ENT oropharynx moist and clear, neck supple, no tenderness, trachea midline, no masses no JVD. Chest: Denies chest pain, no diaphoresis, no mass adenopathy, no tenderness. Cardiac: Regular rate and rhythm, S1-S2 normal, no murmurs, no rubs or gallops. Pulmonary: No shortness of breath, lungs are clear to auscultation bilaterally, no wheezing, no rales or rhonchi. Abdomen: Soft, tender, nondistended, no masses, bowel sounds positive. Genitourinary: Denies dysuria, no urinary frequency, no hematuria. Skin: Skin warm and dry to touch no rash or lesion, no ulceration. Extremities: No clubbing, no edema, no tenderness, no varicosity. Neurologic: Grossly intact, no new focal motor deficit, no numbness or tingling. 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 NOW WITH CONFUSION METABOLIC ENCEPHALOPATHY SEVERE OSTEOARTHRITIS RIGHT KNEE EFFUSION LEUKOCYTOSIS ANEMIA PMH ORGANIC HEART DISEASE HTN CAD WITH HX OF PTCA STENT HX OF CHF HRpEF / DIASTOLIC AFIB HYPERCOAGULABLE STATE HYPOKALEMIA SEVERE [place] HYPERCALCEMIA ANEMIA REACTIVE THROMBOCYTOSIS Assessment/Plan s/p ARTHROCENTESIS CXR OF FLUID CONSIDER OPEN DEBRIDEMENT IF CONTINUED INFECTION NOW REQUIRE OPEN DEBRIDEMENT OF RIGHT NEWS EPOGEN PHYSICAL THERAPY WROTE FOR EPOGEN BUT PHARMACY HAS NOT GIVEN THE PT THE ORDERS WRITTEN IF EPOGEN IS NOT GIVEN PT MAY REQUIRE TRANSFUSION INSTEAD HCT 26% iron low retic count high esr high START IRON INFUSION IF LOCAL ORTHO CANNOT HANDLE THE INFECTION ID CONSIDER TRANSFER TO TERTIARY FACILITY FLUID CX NEGATIVE Dietary Evaluation Review Comments: 1) Encourage optimal PO intake 2) Consider laxative and/or soluble fiber supplement PRN to resolve constipation 3) Follow-up with cardiology 4) Continue to monitor I&O, labs, and skin integrity Expected Outcomes/Goals: 1) appetite and labs to improve 2) f/u in 3-5 days Plan discussed with: Patient ANISH DIAZ MD Mar 02, 2025 09:03
[2025-03-02] MEDS: ENOXAPARIN SOD 30 MG/0.3 ML SYRINGE SC SCH (10:03)
--- NOTE | 2025-03-02 12:38 | DVHPN2 ---
Progress Note Date Seen: Mar 02, 2025 Medical Necessity Reason Pt with a Central, PICC or Fol: Yes The following are medically ne: De Santiago Catheter Reason for de santiago catheter: Strict I&O Subjective Patient reports: No new complaints Review of Systems: HEENT:Normal, CVS:Normal, RESPIRATORY:Normal, GI:Normal, :Normal, MSK:Normal, NEURO:Normal Objective vital signs Vital Sign Date Time Temp Pulse Resp B/P (MAP) Pulse Ox O2 Delivery O2 Flow Rate FiO2 03/02/25 09:43 141/64 03/02/25 09:42 61 03/02/25 09:00 97.7 18 98 97.7 03/01/25 20:00 Room Air* 0 21 Total Intake and Output 03/01/25 03/01/25 03/02/25 15:00 23:00 07:00 Intake Total 800 ml 450 ml Output Total 1100 ml 850 ml Balance -300 ml -400 ml medications Current Medications Medications Dose Ordered Sig/Irene Route Start Time Stop Time Status Last Admin Dose Admin Sodium Chloride 10 ml Q8HR IV 02/20/25 14:00 03/02/25 06:09 10 ML Acetaminophen 650 mg Q6HP PRN PO 02/20/25 14:00 03/02/25 04:29 650 MG Ondansetron HCl 4 mg Q4HP PRN IV 02/20/25 14:00 Vancomycin HCl 0 ml @ 0 mls/hr UD IV 02/20/25 14:00 Alprazolam 0.5 mg Q6HPRN PRN PO 02/21/25 14:30 02/21/25 20:57 0.5 MG Lactulose 30 ml BID PO 02/21/25 22:00 03/02/25 09:40 30 ML Alprazolam 0.5 mg BID PO 02/22/25 10:00 03/02/25 09:41 0.5 MG Aspirin 81 mg DAILY PO 02/22/25 10:00 03/02/25 09:42 81 MG Bupropion HCl 100 mg Q8HR PO 02/22/25 14:00 03/02/25 06:08 100 MG Cholecalciferol 1,000 unit DAILY PO 02/22/25 10:00 03/02/25 09:41 1,000 UNIT Pantoprazole Sodium 40 mg BID PO 02/22/25 10:00 03/02/25 09:42 40 MG Sucralfate 1 gm BID PO 02/22/25 10:00 03/02/25 09:43 1 GM Tramadol HCl 50 mg BID PO 02/22/25 10:00 03/02/25 09:43 50 MG Patient Own Medication 50 mg HS PO 02/22/25 22:00 UNV Patient Own Medication 1 tab DAILY PO 02/22/25 10:00 UNV Patient Own Medication 1 tab DAILY PO 02/22/25 10:00 UNV Patient Own Medication 1 tab DAILY PO 02/22/25 10:00 UNV Lisinopril 20 mg BID PO 02/22/25 10:00 03/02/25 09:43 20 MG Metoprolol Succinate 25 mg DAILY PO 02/22/25 10:00 03/02/25 09:42 25 MG Atorvastatin Calcium 20 mg HS PO 02/22/25 22:00 03/01/25 21:12 20 MG Amitriptyline HCl 50 mg HS PO 02/22/25 22:00 03/01/25 21:12 50 MG Levothyroxine Sodium 75 mcg QAM@0600 PO 02/23/25 06:00 03/02/25 06:08 75 MCG Potassium Chloride 20 meq DAILY PO 02/22/25 10:00 03/02/25 09:43 20 MEQ Furosemide 40 mg QAM PO 02/23/25 07:00 03/02/25 06:08 40 MG Cefepime HCl 50 ml @ 12.5 mls/hr Q12HR IV 02/22/25 22:00 03/02/25 09:40 12.5 MLS/HR Hydralazine HCl 10 mg Q6HP PRN IV 02/23/25 13:30 03/01/25 06:16 10 MG Clonidine HCl 0.1 mg Q6HP PRN PO 02/23/25 16:45 03/02/25 04:30 0.1 MG Enoxaparin Sodium 30 mg DAILY SC 03/02/25 10:00 03/02/25 10:03 30 MG Examination: GENERAL:Normal, HEENT:Normal, NECK:Normal, LUNGS:Normal, CVS:Normal, ABDOMEN:Normal, MSK:Normal, MSK:Abnormal (right knee swelling decreased), SKIN:Normal, NEURO:Normal, :Normal laboratory and microbiology Laboratory Tests 03/02/25 07:04 03/01/25 06:42 02/24/25 06:04 Test 02/24/25 06:04 Range/Units Serum Glucose 79 74-106 mg/dL Microbiology Date/Time Source Procedure Growth Status 02/25/25 16:15 Knee Right Gram Stain - Final Complete 02/25/25 16:15 Knee Right Wound Culture - Final Complete 02/20/25 11:28 Blood Blood Culture - Final NO GROWTH AFTER 5 DAYS OF INCUBATION. Complete Problem List/Assessment/Plan Problem List/Assessment/Plan * Right knee infection secondary to pseudomonas, status post surgery: recurrent swelling, dw ortho * Anxiety. * Anemia: monitor * Coronary artery disease. * Hypertension. * Hypothyroidism. * Chronic diastolic heart failure. * Hyperlipidemia. advance care planning- full code- time spent 18 mins Plan discussed with: Patient Dietary Evaluation Review Comments: 1) Encourage optimal PO intake 2) Consider laxative and/or soluble fiber supplement PRN to resolve constipation 3) Follow-up with cardiology 4) Continue to monitor I&O, labs, and skin integrity Expected Outcomes/Goals: 1) appetite and labs to improve 2) f/u in 3-5 days Date of Service: Mar 02, 2025 Billing Provider: ALDO MONDRAGON MD Common Visit Codes: [id number] INP/OBS CARE(HIGH) ALDO MONDRAGON MD Mar 02, 2025 12:38
[2025-03-03] VITALS (9 sets, daily range): BP systolic 111–184; BP diastolic 59–91; PULSE 58–66; RESP 16–20; TEMP 97.7–98.8; O2SAT 97–99
[2025-03-03] MEDS: KETOROLAC TROMETH 30 MG/ML 1ML VIAL IV ONE (00:14)
[2025-03-03] MEDS: HYDROcodone-ACET 10/325MG TAB PO ONE (03:53)
--- NOTE | 2025-03-03 12:15 | DVHPN2 ---
Progress Note Date Seen: Mar 03, 2025 Medical Necessity Reason Pt with a Central, PICC or Fol: Yes The following are medically ne: De Santiago Catheter Reason for de santiago catheter: Strict I&O Subjective Patient reports: No new complaints Review of Systems: HEENT:Normal, CVS:Normal, RESPIRATORY:Normal, GI:Normal, :Normal, MSK:Normal, NEURO:Normal Objective vital signs Vital Sign Date Time Temp Pulse Resp B/P (MAP) Pulse Ox O2 Delivery O2 Flow Rate FiO2 03/03/25 10:30 66 123/59 03/03/25 10:24 97.9 20 99 97.9 03/02/25 20:00 Room Air* 0 21 Total Intake and Output 03/02/25 03/02/25 03/03/25 15:00 23:00 07:00 Intake Total 1000 ml 500 ml Output Total 850 ml 1100 ml Balance 150 ml -600 ml medications Current Medications Medications Dose Ordered Sig/Irene Route Start Time Stop Time Status Last Admin Dose Admin Sodium Chloride 10 ml Q8HR IV 02/20/25 14:00 03/03/25 06:13 10 ML Acetaminophen 650 mg Q6HP PRN PO 02/20/25 14:00 03/03/25 09:00 650 MG Ondansetron HCl 4 mg Q4HP PRN IV 02/20/25 14:00 Alprazolam 0.5 mg Q6HPRN PRN PO 02/21/25 14:30 02/21/25 20:57 0.5 MG Lactulose 30 ml BID PO 02/21/25 22:00 03/03/25 10:28 30 ML Alprazolam 0.5 mg BID PO 02/22/25 10:00 03/03/25 10:29 0.5 MG Aspirin 81 mg DAILY PO 02/22/25 10:00 03/03/25 10:30 81 MG Bupropion HCl 100 mg Q8HR PO 02/22/25 14:00 03/03/25 06:04 100 MG Cholecalciferol 1,000 unit DAILY PO 02/22/25 10:00 03/03/25 10:29 1,000 UNIT Pantoprazole Sodium 40 mg BID PO 02/22/25 10:00 03/03/25 10:30 40 MG Sucralfate 1 gm BID PO 02/22/25 10:00 03/03/25 10:29 1 GM Tramadol HCl 50 mg BID PO 02/22/25 10:00 03/03/25 10:29 50 MG Patient Own Medication 50 mg HS PO 02/22/25 22:00 UNV Patient Own Medication 1 tab DAILY PO 02/22/25 10:00 UNV Patient Own Medication 1 tab DAILY PO 02/22/25 10:00 UNV Patient Own Medication 1 tab DAILY PO 02/22/25 10:00 UNV Lisinopril 20 mg BID PO 02/22/25 10:00 03/03/25 10:30 20 MG Metoprolol Succinate 25 mg DAILY PO 02/22/25 10:00 03/03/25 10:30 25 MG Atorvastatin Calcium 20 mg HS PO 02/22/25 22:00 03/02/25 21:30 20 MG Amitriptyline HCl 50 mg HS PO 02/22/25 22:00 03/02/25 21:30 50 MG Levothyroxine Sodium 75 mcg QAM@0600 PO 02/23/25 06:00 03/03/25 06:04 75 MCG Furosemide 40 mg QAM PO 02/23/25 07:00 03/03/25 06:06 40 MG Cefepime HCl 50 ml @ 12.5 mls/hr Q12HR IV 02/22/25 22:00 03/03/25 10:28 12.5 MLS/HR Hydralazine HCl 10 mg Q6HP PRN IV 02/23/25 13:30 03/03/25 09:01 10 MG Clonidine HCl 0.1 mg Q6HP PRN PO 02/23/25 16:45 03/03/25 06:24 0.1 MG Enoxaparin Sodium 30 mg DAILY SC 03/02/25 10:00 03/03/25 10:51 30 MG Examination: GENERAL:Normal, HEENT:Normal, NECK:Normal, LUNGS:Normal, CVS:Normal, ABDOMEN:Normal, ABDOMEN:Abnormal (right knee swelling decreased), MSK:Normal, SKIN:Normal, NEURO:Normal, :Normal laboratory and microbiology Laboratory Tests 03/03/25 06:48 03/01/25 06:42 02/24/25 06:04 Test 02/24/25 06:04 Range/Units Serum Glucose 79 74-106 mg/dL Microbiology Date/Time Source Procedure Growth Status 02/25/25 16:15 Knee Right Gram Stain - Final Complete 02/25/25 16:15 Knee Right Wound Culture - Final Complete 02/20/25 11:28 Blood Blood Culture - Final NO GROWTH AFTER 5 DAYS OF INCUBATION. Complete Problem List/Assessment/Plan Problem List/Assessment/Plan * Right knee infection secondary to pseudomonas, status post surgery: recurrent swelling, dw dr García-oral cipro * Anxiety. * Anemia: monitor * Coronary artery disease. * Hypertension. * Hypothyroidism. * Chronic diastolic heart failure. * Hyperlipidemia. * elevated creat: dc vanc,lasix, bmp advance care planning- full code- time spent 18 mins Plan discussed with: Patient My Orders My Orders Orders - ALDO MONDRAGON MD Procedure Category Date Status Time Basic Metabolic Panel LAB 03/03/25 Logged 12:07 Basic Metabolic Panel LAB 03/04/25 Verified 06:00 Complete Blood Count LAB 03/04/25 Verified 06:00 Hydrocodone-Acet PHA 03/03/25 Verified 5/325mg Tab (Logan 12:15 Ciprofloxacin Tablet PHA 03/03/25 Verified (Cipro Tablet) 22:00 * Maths Tutor CONS 03/03/25 Verified Consult Dietary Evaluation Review Comments: 1) Encourage optimal PO intake 2) Consider laxative and/or soluble fiber supplement PRN to resolve constipation 3) Follow-up with cardiology 4) Continue to monitor I&O, labs, and skin integrity Expected Outcomes/Goals: 1) appetite and labs to improve 2) f/u in 3-5 days Date of Service: Mar 03, 2025 Billing Provider: ALDO MONDRAGON MD Common Visit Codes: [id number] INP/OBS CARE(HIGH) ALDO MONDRAGON MD Mar 03, 2025 12:15
[2025-03-03 12:35] LABS: Chloride 99 mmol/L (98-107); Potassium 3.8 mmol/L (3.5-5.1)
[2025-03-03 12:36] LABS: Anion Gap 10 (5-15); Carbon Dioxide 26 mmol/L (20-31)
[2025-03-03 12:37] LABS: Calcium 9.6 mg/dL (8.7-10.4)
[2025-03-03 12:41] LABS: Glucose 87 mg/dL (74-106)
[2025-03-03 12:42] LABS: BUN/Creatinine Ratio 19.7 (10.0-20.0)
[2025-03-03 12:54] LABS: Blood Urea Nitrogen 27 mg/dL (9-23); Sodium 135 mmol/L (136-145)
--- NOTE | 2025-03-03 13:13 | DVHPN2 ---
Progress Note - Dictate Date Seen: Mar 01, 2025 Medical Necessity Reason Pt with a Central, PICC or Fol: Yes The following are medically ne: De Santiago Catheter Reason for de santiago catheter: Strict I&O Subjective HX OF SEPTIC JOINT S/P EXPLANTATION OF RIGHT KNEE PROSTHESIS WITH SPACERS NOW WITH CONFUSION METABOLIC ENCEPHALOPATHY SEVERE OSTEOARTHRITIS RIGHT KNEE EFFUSION LEUKOCYTOSIS ANEMIA PMH ORGANIC HEART DISEASE HTN CAD WITH HX OF PTCA STENT HX OF CHF HRpEF / DIASTOLIC AFIB HYPERCOAGULABLE STATE HYPOKALEMIA SEVERE CACHEXIA HYPERCALCEMIA SEPTIC JOINT vital signs Vital Sign Date Time Temp Pulse Resp B/P (MAP) Pulse Ox O2 Delivery O2 Flow Rate FiO2 03/03/25 10:30 66 123/59 03/03/25 10:24 97.9 20 99 97.9 03/02/25 20:00 Room Air* 0 21 Total Intake and Output 03/02/25 03/02/25 03/03/25 15:00 23:00 07:00 Intake Total 1000 ml 500 ml Output Total 850 ml 1100 ml Balance 150 ml -600 ml medications Current Medications Medications Dose Ordered Sig/Irene Route Start Time Stop Time Status Last Admin Dose Admin Sodium Chloride 10 ml Q8HR IV 02/20/25 14:00 03/03/25 06:13 10 ML Acetaminophen 650 mg Q6HP PRN PO 02/20/25 14:00 03/03/25 09:00 650 MG Ondansetron HCl 4 mg Q4HP PRN IV 02/20/25 14:00 Alprazolam 0.5 mg Q6HPRN PRN PO 02/21/25 14:30 02/21/25 20:57 0.5 MG Lactulose 30 ml BID PO 02/21/25 22:00 03/03/25 10:28 30 ML Alprazolam 0.5 mg BID PO 02/22/25 10:00 03/03/25 10:29 0.5 MG Aspirin 81 mg DAILY PO 02/22/25 10:00 03/03/25 10:30 81 MG Bupropion HCl 100 mg Q8HR PO 02/22/25 14:00 03/03/25 06:04 100 MG Cholecalciferol 1,000 unit DAILY PO 02/22/25 10:00 03/03/25 10:29 1,000 UNIT Pantoprazole Sodium 40 mg BID PO 02/22/25 10:00 03/03/25 10:30 40 MG Sucralfate 1 gm BID PO 02/22/25 10:00 03/03/25 10:29 1 GM Patient Own Medication 50 mg HS PO 02/22/25 22:00 UNV Patient Own Medication 1 tab DAILY PO 02/22/25 10:00 UNV Patient Own Medication 1 tab DAILY PO 02/22/25 10:00 UNV Patient Own Medication 1 tab DAILY PO 02/22/25 10:00 UNV Lisinopril 20 mg BID PO 02/22/25 10:00 03/03/25 10:30 20 MG Metoprolol Succinate 25 mg DAILY PO 02/22/25 10:00 03/03/25 10:30 25 MG Atorvastatin Calcium 20 mg HS PO 02/22/25 22:00 03/02/25 21:30 20 MG Amitriptyline HCl 50 mg HS PO 02/22/25 22:00 03/02/25 21:30 50 MG Levothyroxine Sodium 75 mcg QAM@0600 PO 02/23/25 06:00 03/03/25 06:04 75 MCG Hydralazine HCl 10 mg Q6HP PRN IV 02/23/25 13:30 03/03/25 09:01 10 MG Clonidine HCl 0.1 mg Q6HP PRN PO 02/23/25 16:45 03/03/25 06:24 0.1 MG Enoxaparin Sodium 30 mg DAILY SC 03/02/25 10:00 03/03/25 10:51 30 MG Acetaminophen/ Hydrocodone Bitart 1 tab Q6HPRN PRN PO 03/03/25 12:15 Ciprofloxacin 500 mg Q12HR PO 03/03/25 22:00 objective HEENT: Head is atraumatic normocephalic, eyes PERRLA, ENT oropharynx moist and clear, neck supple, no tenderness, trachea midline, no masses no JVD. Chest: Denies chest pain, no diaphoresis, no mass adenopathy, no tenderness. Cardiac: Regular rate and rhythm, S1-S2 normal, no murmurs, no rubs or gallops. Pulmonary: No shortness of breath, lungs are clear to auscultation bilaterally, no wheezing, no rales or rhonchi. Abdomen: Soft, tender, nondistended, no masses, bowel sounds positive. Genitourinary: Denies dysuria, no urinary frequency, no hematuria. Skin: Skin warm and dry to touch no rash or lesion, no ulceration. Extremities: No clubbing, no edema, no tenderness, no varicosity. Neurologic: Grossly intact, no new focal motor deficit, no numbness or tingling. laboratory and microbiology Laboratory Tests 03/03/25 06:48 03/01/25 06:42 Test 03/03/25 06:48 Range/Units Serum Glucose 87 74-106 mg/dL Problem List NOW WITH KNEE EFFUSION HX OF SEPTIC JOINT S/P EXPLANTATION OF RIGHT KNEE PROSTHESIS WITH SPACERS NOW WITH CONFUSION METABOLIC ENCEPHALOPATHY SEVERE OSTEOARTHRITIS RIGHT KNEE EFFUSION LEUKOCYTOSIS ANEMIA PMH ORGANIC HEART DISEASE HTN CAD WITH HX OF PTCA STENT HX OF CHF HRpEF / DIASTOLIC AFIB HYPERCOAGULABLE STATE HYPOKALEMIA SEVERE CACHEXIA HYPERCALCEMIA ANEMIA REACTIVE THROMBOCYTOSIS Assessment/Plan s/p ARTHROCENTESIS CXR OF FLUID CONSIDER OPEN DEBRIDEMENT IF CONTINUED INFECTION NOW REQUIRE OPEN DEBRIDEMENT OF RIGHT NEWS EPOGEN PHYSICAL THERAPY WROTE FOR EPOGEN BUT PHARMACY HAS NOT GIVEN THE PT THE ORDERS WRITTEN IF EPOGEN IS NOT GIVEN PT MAY REQUIRE TRANSFUSION INSTEAD HCT 26% Monitor Hydromorphone HCL 0.5 mg IV. Dietary Evaluation Review Comments: 1) Encourage optimal PO intake 2) Consider laxative and/or soluble fiber supplement PRN to resolve constipation 3) Follow-up with cardiology 4) Continue to monitor I&O, labs, and skin integrity Expected Outcomes/Goals: 1) appetite and labs to improve 2) f/u in 3-5 days Plan discussed with: Patient ANISH DIAZ MD Mar 03, 2025 13:12
--- NOTE | 2025-03-03 16:58 | DVHPN2 ---
Progress Note Progress Note History of Present Illness (HPI): The patient is an 84-year-old female with past medical history significant for hypertension, CAD, hyperlipidemia, HFpEF, and hypothyroidism. She has a history of right knee infection and was previously admitted at [facility] from 01/08/2025 to 02/01/2025 for management of a right knee infection. At that time, she underwent irrigation and debridement of the right knee with placement of an antibiotic spacer and PICC line for IV antibiotic therapy after joint fluid culture grew Pseudomonas. She was also evaluated by Infectious Disease and placed on a course of IV antibiotics. Since that admission, the patient underwent right knee aspiration by [facility]. Only enough fluid was obtained for Gram stain and culture, which have remained negative to date (4 days). Most recent labs (03/01/2025) show WBC 7.9, Gram stain negative, culture negative. 03/02/2025: patient reports no right knee pain. Swelling and erythema have improved since her admission. She has active range of motion from 0 to 70, which is her normal baseline, and this is pain-free. Incision site is well healed.no fever, chills or any other ocnerns reported by patient. No apparent distress noted. --- Exam: General: Awake, alert, elderly female. Right knee: Incision site well healed, no drainage or dehiscence. Swelling and erythema improved. No tenderness to palpation. Active ROM 070, pain-free (baseline). 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 hx of right knee irrigation, debridement, and placement of antibiotic spacer. Improvement in right knee swelling, erythema, and pain. Gram stain and cultures negative to date. Currently clinically stable. --- Plan: Patient stable for discharge from Orthopedic standpoint with antibiotics recommendation per Infectious Disease. Pain management per hospitalist. Case discussed with Dr. García, who agrees with the above plan. Plan discussed with: Patient, Other (bedside nurse) Visit Coding Surgery Date of Service if different f: Mar 03, 2025 Billing Provider: IDRIS MENA Surgery Visit Codes: [id number] - INP CONSULT <55 MIN IDRIS MENA Mar 03, 2025 16:58
[2025-03-03] MEDS: CIPROFLOXACIN HCL 500 MG TAB PO SCH (21:29)
[2025-03-03] MEDS: HYDROcodone-ACET 5/325MG TAB PO PRN (21:35)
[2025-03-04] VITALS (7 sets, daily range): BP systolic 138–183; BP diastolic 68–80; PULSE 62–76; RESP 17–20; TEMP 97.7–98.7; O2SAT 96–99
[2025-03-04 06:46] LABS: Hematocrit 30.6 % (36.0-46.0); Hemoglobin 10.2 g/dL (12.2-16.2); Mean Corpuscular Hemoglobin 28.4 pg (28.0-32.0); Mean Corpuscular Volume 85.0 fL (80.0-100.0); Nucleated Red Blood Cells % 0.0 %
[2025-03-04 06:58] LABS: Calcium 9.5 mg/dL (8.7-10.4); Chloride 99 mmol/L (98-107); Potassium 3.6 mmol/L (3.5-5.1)
[2025-03-04 06:59] LABS: Anion Gap 9 (5-15); Carbon Dioxide 27 mmol/L (20-31)
[2025-03-04 07:01] LABS: Sodium 135 mmol/L (136-145)
[2025-03-04 07:04] LABS: Glucose 88 mg/dL (74-106)
[2025-03-04 07:05] LABS: BUN/Creatinine Ratio 21.4 (10.0-20.0)
[2025-03-04 07:06] LABS: Blood Urea Nitrogen 27 mg/dL (9-23)
--- NOTE | 2025-03-04 12:33 | DVHPN2 ---
Progress Note - Dictate Date Seen: Mar 04, 2025 Medical Necessity Reason Pt with a Central, PICC or Fol: Yes The following are medically ne: De Santiago Catheter Reason for de santiago catheter: Strict I&O Subjective HX OF SEPTIC JOINT S/P EXPLANTATION OF RIGHT KNEE PROSTHESIS WITH SPACERS NOW WITH CONFUSION METABOLIC ENCEPHALOPATHY SEVERE OSTEOARTHRITIS RIGHT KNEE EFFUSION LEUKOCYTOSIS ANEMIA PMH ORGANIC HEART DISEASE HTN CAD WITH HX OF PTCA STENT HX OF CHF HRpEF / DIASTOLIC AFIB HYPERCOAGULABLE STATE HYPOKALEMIA SEVERE CACHEXIA HYPERCALCEMIA SEPTIC JOINT vital signs Vital Sign Date Time Temp Pulse Resp B/P (MAP) Pulse Ox O2 Delivery O2 Flow Rate FiO2 03/04/25 09:29 65 161/70 03/04/25 08:30 98.7 18 99 98.7 03/04/25 08:00 Room Air* 0 21 Total Intake and Output 03/03/25 03/03/25 03/04/25 15:00 23:00 07:00 Intake Total 360 ml 960 ml 250 ml Output Total 600 ml 600 ml Balance 360 ml 360 ml -350 ml medications Current Medications Medications Dose Ordered Sig/Irene Route Start Time Stop Time Status Last Admin Dose Admin Sodium Chloride 10 ml Q8HR IV 02/20/25 14:00 03/04/25 06:19 10 ML Acetaminophen 650 mg Q6HP PRN PO 02/20/25 14:00 03/04/25 00:10 650 MG Ondansetron HCl 4 mg Q4HP PRN IV 02/20/25 14:00 Alprazolam 0.5 mg Q6HPRN PRN PO 02/21/25 14:30 02/21/25 20:57 0.5 MG Lactulose 30 ml BID PO 02/21/25 22:00 03/04/25 09:27 30 ML Alprazolam 0.5 mg BID PO 02/22/25 10:00 03/04/25 09:28 0.5 MG Aspirin 81 mg DAILY PO 02/22/25 10:00 03/04/25 09:36 81 MG Bupropion HCl 100 mg Q8HR PO 02/22/25 14:00 03/04/25 06:18 100 MG Cholecalciferol 1,000 unit DAILY PO 02/22/25 10:00 03/04/25 09:28 1,000 UNIT Pantoprazole Sodium 40 mg BID PO 02/22/25 10:00 03/04/25 09:29 40 MG Sucralfate 1 gm BID PO 02/22/25 10:00 03/04/25 09:27 1 GM Patient Own Medication 50 mg HS PO 02/22/25 22:00 UNV Patient Own Medication 1 tab DAILY PO 02/22/25 10:00 UNV Patient Own Medication 1 tab DAILY PO 02/22/25 10:00 UNV Patient Own Medication 1 tab DAILY PO 02/22/25 10:00 UNV Lisinopril 20 mg BID PO 02/22/25 10:00 03/04/25 09:28 20 MG Metoprolol Succinate 25 mg DAILY PO 02/22/25 10:00 03/04/25 09:29 25 MG Atorvastatin Calcium 20 mg HS PO 02/22/25 22:00 03/03/25 21:30 20 MG Amitriptyline HCl 50 mg HS PO 02/22/25 22:00 03/03/25 21:30 50 MG Levothyroxine Sodium 75 mcg QAM@0600 PO 02/23/25 06:00 03/04/25 06:18 75 MCG Hydralazine HCl 10 mg Q6HP PRN IV 02/23/25 13:30 03/04/25 06:19 10 MG Clonidine HCl 0.1 mg Q6HP PRN PO 02/23/25 16:45 03/04/25 00:11 0.1 MG Enoxaparin Sodium 30 mg DAILY SC 03/02/25 10:00 03/04/25 09:29 30 MG Acetaminophen/ Hydrocodone Bitart 1 tab Q6HPRN PRN PO 03/03/25 12:15 03/04/25 06:18 1 TAB Ciprofloxacin 500 mg Q12HR PO 03/03/25 22:00 03/04/25 09:27 500 MG objective HEENT: Head is atraumatic normocephalic, eyes PERRLA, ENT oropharynx moist and clear, neck supple, no tenderness, trachea midline, no masses no JVD. Chest: Denies chest pain, no diaphoresis, no mass adenopathy, no tenderness. Cardiac: Regular rate and rhythm, S1-S2 normal, no murmurs, no rubs or gallops. Pulmonary: No shortness of breath, lungs are clear to auscultation bilaterally, no wheezing, no rales or rhonchi. Abdomen: Soft, tender, nondistended, no masses, bowel sounds positive. Genitourinary: Denies dysuria, no urinary frequency, no hematuria. Skin: Skin warm and dry to touch no rash or lesion, no ulceration. Extremities: No clubbing, no edema, no tenderness, no varicosity. Neurologic: Grossly intact, no new focal motor deficit, no numbness or tingling. laboratory and microbiology Laboratory Tests 03/04/25 05:59 Test 03/04/25 05:59 Range/Units Serum Glucose 88 74-106 mg/dL Problem List NOW WITH KNEE EFFUSION HX OF SEPTIC JOINT S/P EXPLANTATION OF RIGHT KNEE PROSTHESIS WITH SPACERS NOW WITH CONFUSION METABOLIC ENCEPHALOPATHY SEVERE OSTEOARTHRITIS RIGHT KNEE EFFUSION LEUKOCYTOSIS ANEMIA PMH ORGANIC HEART DISEASE HTN CAD WITH HX OF PTCA STENT HX OF CHF HRpEF / DIASTOLIC AFIB HYPERCOAGULABLE STATE HYPOKALEMIA SEVERE CACHEXIA HYPERCALCEMIA ANEMIA REACTIVE THROMBOCYTOSIS Assessment/Plan s/p ARTHROCENTESIS CXR OF FLUID CONSIDER OPEN DEBRIDEMENT IF CONTINUED INFECTION NOW REQUIRE OPEN DEBRIDEMENT OF RIGHT NEWS EPOGEN PHYSICAL THERAPY WROTE FOR EPOGEN BUT PHARMACY HAS NOT GIVEN THE PT THE ORDERS WRITTEN IF EPOGEN IS NOT GIVEN PT MAY REQUIRE TRANSFUSION INSTEAD HCT 26% Monitor Hydromorphone HCL 0.5 mg IV. MAY DC HOME WITH HOME EALTH OR HOSPICE PT DOES NOT WANT TO TO SNF Dietary Evaluation Review Comments: 1) Encourage optimal PO intake 2) Consider laxative and/or soluble fiber supplement PRN to resolve constipation 3) Follow-up with cardiology 4) Continue to monitor I&O, labs, and skin integrity Expected Outcomes/Goals: 1) appetite and labs to improve 2) f/u in 3-5 days Plan discussed with: Patient ANISH DIAZ MD Mar 04, 2025 12:33
--- NOTE | 2025-03-04 15:21 | DVHPN2 ---
Progress Note Date Seen: Mar 04, 2025 Medical Necessity Reason Pt with a Central, PICC or Fol: Yes The following are medically ne: De [place] Catheter Reason for de santiago catheter: Strict I&O Subjective Patient reports: No new complaints Review of Systems: HEENT:Normal, CVS:Normal, RESPIRATORY:Normal, GI:Normal, :Normal, MSK:Normal, NEURO:Normal Objective vital signs Vital Sign Date Time Temp Pulse Resp B/P (MAP) Pulse Ox O2 Delivery O2 Flow Rate FiO2 03/04/25 12:30 98.4 69 17 140/76 (97) 97 98.4 03/04/25 08:00 Room Air* 0 21 Total Intake and Output 03/03/25 03/03/25 03/04/25 15:00 23:00 07:00 Intake Total 360 ml 960 ml 250 ml Output Total 600 ml 600 ml Balance 360 ml 360 ml -350 ml medications Current Medications Medications Dose Ordered Sig/Irene Route Start Time Stop Time Status Last Admin Dose Admin Sodium Chloride 10 ml Q8HR IV 02/20/25 14:00 03/04/25 14:00 10 ML Acetaminophen 650 mg Q6HP PRN PO 02/20/25 14:00 03/04/25 00:10 650 MG Ondansetron HCl 4 mg Q4HP PRN IV 02/20/25 14:00 Alprazolam 0.5 mg Q6HPRN PRN PO 02/21/25 14:30 02/21/25 20:57 0.5 MG Lactulose 30 ml BID PO 02/21/25 22:00 03/04/25 09:27 30 ML Alprazolam 0.5 mg BID PO 02/22/25 10:00 03/04/25 09:28 0.5 MG Aspirin 81 mg DAILY PO 02/22/25 10:00 03/04/25 09:36 81 MG Bupropion HCl 100 mg Q8HR PO 02/22/25 14:00 03/04/25 14:32 100 MG Cholecalciferol 1,000 unit DAILY PO 02/22/25 10:00 03/04/25 09:28 1,000 UNIT Pantoprazole Sodium 40 mg BID PO 02/22/25 10:00 03/04/25 09:29 40 MG Sucralfate 1 gm BID PO 02/22/25 10:00 03/04/25 09:27 1 GM Patient Own Medication 50 mg HS PO 02/22/25 22:00 UNV Patient Own Medication 1 tab DAILY PO 02/22/25 10:00 UNV Patient Own Medication 1 tab DAILY PO 02/22/25 10:00 UNV Patient Own Medication 1 tab DAILY PO 02/22/25 10:00 UNV Lisinopril 20 mg BID PO 02/22/25 10:00 03/04/25 09:28 20 MG Metoprolol Succinate 25 mg DAILY PO 02/22/25 10:00 03/04/25 09:29 25 MG Atorvastatin Calcium 20 mg HS PO 02/22/25 22:00 03/03/25 21:30 20 MG Amitriptyline HCl 50 mg HS PO 02/22/25 22:00 03/03/25 21:30 50 MG Levothyroxine Sodium 75 mcg QAM@0600 PO 02/23/25 06:00 03/04/25 06:18 75 MCG Hydralazine HCl 10 mg Q6HP PRN IV 02/23/25 13:30 03/04/25 06:19 10 MG Clonidine HCl 0.1 mg Q6HP PRN PO 02/23/25 16:45 03/04/25 00:11 0.1 MG Enoxaparin Sodium 30 mg DAILY SC 03/02/25 10:00 03/04/25 09:29 30 MG Acetaminophen/ Hydrocodone Bitart 1 tab Q6HPRN PRN PO 03/03/25 12:15 03/04/25 14:41 1 TAB Ciprofloxacin 500 mg Q12HR PO 03/03/25 22:00 03/04/25 09:27 500 MG Examination: GENERAL:Normal, HEENT:Normal, NECK:Normal, LUNGS:Normal, CVS:Normal, ABDOMEN:Normal, MSK:Normal, MSK:Abnormal (RIGHT KNEE SWELLING DECREASED), SKIN:Normal, NEURO:Normal, :Normal laboratory and microbiology Laboratory Tests 03/04/25 05:59 Test 03/04/25 05:59 Range/Units Serum Glucose 88 74-106 mg/dL Microbiology Date/Time Source Procedure Growth Status 02/25/25 16:15 Knee Right Gram Stain - Final Complete 02/25/25 16:15 Knee Right Wound Culture - Final Complete 02/20/25 11:28 Blood Blood Culture - Final NO GROWTH AFTER 5 DAYS OF INCUBATION. Complete Problem List/Assessment/Plan Problem List/Assessment/Plan * Right knee infection secondary to pseudomonas, status post surgery: recurrent swelling, dw dr García-oral cipro * Anxiety. * Anemia: monitor * Coronary artery disease. * Hypertension. * Hypothyroidism. * Chronic diastolic heart failure. * Hyperlipidemia. * elevated creat: dc vanc,lasix, [facility] advance care planning- full code- time spent 18 mins Plan discussed with: Patient My Orders My Orders Orders - ALDO MONDRAGON MD Procedure Category Date Status Time * Director Of Special Education CONS 03/04/25 Verified Consult Discontinue De Santiago ROSSI 03/04/25 Verified Catheter 15:18 Dietary Evaluation Review Comments: 1) Encourage optimal PO intake 2) Consider laxative and/or soluble fiber supplement PRN to resolve constipation 3) Follow-up with cardiology 4) Continue to monitor I&O, labs, and skin integrity Expected Outcomes/Goals: 1) appetite and labs to improve 2) f/u in 3-5 days Date of Service: Mar 04, 2025 Billing Provider: ALDO MONDRAGON MD Common Visit Codes: [id number] INP/OBS CARE(HIGH) Secondary Visit Codes: [id number] CARE PLAN 30 MINUTES ALDO MONDRAGON MD Mar 04, 2025 15:21
[2025-03-05 05:00] VITALS: BP 150/96; PULSE 73; RESP 18; TEMP 98.1; O2SAT 98
[2025-03-05 08:51] VITALS: BP 155/84; PULSE 71; RESP 17; TEMP 98.3; O2SAT 98
--- NOTE | 2025-03-05 09:08 | DVHPN2 ---
Progress Note - Dictate Date Seen: Mar 05, 2025 Medical Necessity Reason Pt with a Central, PICC or Fol: Yes The following are medically ne: De Santiago Catheter Reason for de santiago catheter: Strict I&O Subjective HX OF SEPTIC JOINT S/P EXPLANTATION OF RIGHT KNEE PROSTHESIS WITH SPACERS NOW WITH CONFUSION METABOLIC ENCEPHALOPATHY SEVERE OSTEOARTHRITIS RIGHT KNEE EFFUSION LEUKOCYTOSIS ANEMIA PMH ORGANIC HEART DISEASE HTN CAD WITH HX OF PTCA STENT HX OF CHF HRpEF / DIASTOLIC AFIB HYPERCOAGULABLE STATE HYPOKALEMIA SEVERE CACHEXIA HYPERCALCEMIA SEPTIC JOINT vital signs Vital Sign Date Time Temp Pulse Resp B/P (MAP) Pulse Ox O2 Delivery O2 Flow Rate FiO2 03/05/25 08:51 98.3 71 17 155/84 (107) 98 98.3 03/05/25 08:00 Room Air* 0 21 Total Intake and Output 03/04/25 03/04/25 03/05/25 15:00 23:00 07:00 Intake Total 400 ml 300 ml Output Total 500 ml 850 ml Balance -100 ml -550 ml medications Current Medications Medications Dose Ordered Sig/Irene Route Start Time Stop Time Status Last Admin Dose Admin Sodium Chloride 10 ml Q8HR IV 02/20/25 14:00 03/05/25 05:07 10 ML Acetaminophen 650 mg Q6HP PRN PO 02/20/25 14:00 03/05/25 03:12 650 MG Ondansetron HCl 4 mg Q4HP PRN IV 02/20/25 14:00 Alprazolam 0.5 mg Q6HPRN PRN PO 02/21/25 14:30 02/21/25 20:57 0.5 MG Lactulose 30 ml BID PO 02/21/25 22:00 03/04/25 21:21 30 ML Alprazolam 0.5 mg BID PO 02/22/25 10:00 03/04/25 21:21 0.5 MG Aspirin 81 mg DAILY PO 02/22/25 10:00 03/04/25 09:36 81 MG Bupropion HCl 100 mg Q8HR PO 02/22/25 14:00 03/05/25 05:06 100 MG Cholecalciferol 1,000 unit DAILY PO 02/22/25 10:00 03/04/25 09:28 1,000 UNIT Pantoprazole Sodium 40 mg BID PO 02/22/25 10:00 03/04/25 21:22 40 MG Sucralfate 1 gm BID PO 02/22/25 10:00 03/04/25 21:21 1 GM Patient Own Medication 50 mg HS PO 02/22/25 22:00 UNV Patient Own Medication 1 tab DAILY PO 02/22/25 10:00 UNV Patient Own Medication 1 tab DAILY PO 02/22/25 10:00 UNV Patient Own Medication 1 tab DAILY PO 02/22/25 10:00 UNV Lisinopril 20 mg BID PO 02/22/25 10:00 03/04/25 21:22 20 MG Metoprolol Succinate 25 mg DAILY PO 02/22/25 10:00 03/04/25 09:29 25 MG Atorvastatin Calcium 20 mg HS PO 02/22/25 22:00 03/04/25 21:22 20 MG Amitriptyline HCl 50 mg HS PO 02/22/25 22:00 03/04/25 21:23 50 MG Levothyroxine Sodium 75 mcg QAM@0600 PO 02/23/25 06:00 03/05/25 05:06 75 MCG Hydralazine HCl 10 mg Q6HP PRN IV 02/23/25 13:30 03/04/25 06:19 10 MG Acetaminophen/ Hydrocodone Bitart 1 tab Q6HPRN PRN PO 03/03/25 12:15 03/05/25 05:07 1 TAB Ciprofloxacin 500 mg Q12HR PO 03/03/25 22:00 03/04/25 21:22 500 MG objective HEENT: Head is atraumatic normocephalic, eyes PERRLA, ENT oropharynx moist and clear, neck supple, no tenderness, trachea midline, no masses no JVD. Chest: Denies chest pain, no diaphoresis, no mass adenopathy, no tenderness. Cardiac: Regular rate and rhythm, S1-S2 normal, no murmurs, no rubs or gallops. Pulmonary: No shortness of breath, lungs are clear to auscultation bilaterally, no wheezing, no rales or rhonchi. Abdomen: Soft, tender, nondistended, no masses, bowel sounds positive. Genitourinary: Denies dysuria, no urinary frequency, no hematuria. Skin: Skin warm and dry to touch no rash or lesion, no ulceration. Extremities: No clubbing, no edema, no tenderness, no varicosity. Neurologic: Grossly intact, no new focal motor deficit, no numbness or tingling. laboratory and microbiology Laboratory Tests 03/04/25 05:59 Test 03/04/25 05:59 Range/Units Serum Glucose 88 74-106 mg/dL Problem List NOW WITH KNEE EFFUSION HX OF SEPTIC JOINT S/P EXPLANTATION OF RIGHT KNEE PROSTHESIS WITH SPACERS NOW WITH CONFUSION METABOLIC ENCEPHALOPATHY SEVERE OSTEOARTHRITIS RIGHT KNEE EFFUSION LEUKOCYTOSIS ANEMIA PMH ORGANIC HEART DISEASE HTN CAD WITH HX OF PTCA STENT HX OF CHF HRpEF / DIASTOLIC AFIB HYPERCOAGULABLE STATE HYPOKALEMIA SEVERE CACHEXIA HYPERCALCEMIA ANEMIA REACTIVE THROMBOCYTOSIS Assessment/Plan s/p ARTHROCENTESIS CXR OF FLUID CONSIDER OPEN DEBRIDEMENT IF CONTINUED INFECTION NOW REQUIRE OPEN DEBRIDEMENT OF RIGHT NEWS EPOGEN PHYSICAL THERAPY WROTE FOR EPOGEN BUT PHARMACY HAS NOT GIVEN THE PT THE ORDERS WRITTEN IF EPOGEN IS NOT GIVEN PT MAY REQUIRE TRANSFUSION INSTEAD HCT 26% Monitor Hydromorphone HCL 0.5 mg IV. MAY DC HOME WITH HOME EALTH OR HOSPICE PT DOES NOT WANT TO TO SNF DC ON HOSPICE Dietary Evaluation Review Comments: 1) Encourage optimal PO intake 2) Consider laxative and/or soluble fiber supplement PRN to resolve constipation 3) Follow-up with cardiology 4) Continue to monitor I&O, labs, and skin integrity Expected Outcomes/Goals: 1) appetite and labs to improve 2) f/u in 3-5 days Plan discussed with: Patient ANISH DIAZ MD Mar 05, 2025 09:08
[2025-03-05 10:51] VITALS: BP 155/84; PULSE 71; RESP 17; TEMP 98.3
--- NOTE | 2025-03-05 12:50 | DVHPN2 ---
Subjective Denies any symptoms Reviewed: Care Plan, H&P, Labs, Medications, Previous Orders, Radiology Changes from previous H/P or p: No Changes General: Per HPI Objective Vitals Vital Signs Date Time Temp Pulse Resp B/P (MAP) Pulse Ox O2 Delivery O2 Flow Rate FiO2 03/05/25 10:51 98.3 71 17 03/05/25 09:17 155/84 03/05/25 08:51 98 03/05/25 08:00 Room Air* 0 21 Intake/Output Intake and Output 03/05/25 07:00 Intake Total 700 ml Output Total 1350 ml Balance -650 ml Intake Oral 700 ml Output Urine Total 1350 ml General Appearance: Alert, Oriented X3, Cooperative, mild distress HEENT: Atraumatic, PERRLA Lungs: Clear to auscultation, Normal air movement Cardiovascular: Normal S1, Normal S2 Abdomen: Normal bowel sounds, Soft, No tenderness, No hepatospenomegaly Musculoskeletal: Normal sensory function, Normal motor function Skin: Dry, Intact Psych/Mental Status: Mental status NL, Mood NL Medications Current Medications Medications Dose Ordered Sig/Irene Route Start Time Stop Time Status Last Admin Dose Admin Sodium Chloride 10 ml Q8HR IV 02/20/25 14:00 03/05/25 05:07 10 ML Acetaminophen 650 mg Q6HP PRN PO 02/20/25 14:00 03/05/25 03:12 650 MG Ondansetron HCl 4 mg Q4HP PRN IV 02/20/25 14:00 Alprazolam 0.5 mg Q6HPRN PRN PO 02/21/25 14:30 02/21/25 20:57 0.5 MG Lactulose 30 ml BID PO 02/21/25 22:00 03/05/25 09:15 30 ML Alprazolam 0.5 mg BID PO 02/22/25 10:00 03/05/25 09:17 0.5 MG Aspirin 81 mg DAILY PO 02/22/25 10:00 03/05/25 09:16 81 MG Bupropion HCl 100 mg Q8HR PO 02/22/25 14:00 03/05/25 05:06 100 MG Cholecalciferol 1,000 unit DAILY PO 02/22/25 10:00 03/05/25 09:17 1,000 UNIT Pantoprazole Sodium 40 mg BID PO 02/22/25 10:00 03/05/25 09:16 40 MG Sucralfate 1 gm BID PO 02/22/25 10:00 03/05/25 09:16 1 GM Patient Own Medication 50 mg HS PO 02/22/25 22:00 UNV Patient Own Medication 1 tab DAILY PO 02/22/25 10:00 UNV Patient Own Medication 1 tab DAILY PO 02/22/25 10:00 UNV Patient Own Medication 1 tab DAILY PO 02/22/25 10:00 UNV Lisinopril 20 mg BID PO 02/22/25 10:00 03/05/25 09:17 20 MG Metoprolol Succinate 25 mg DAILY PO 02/22/25 10:00 03/05/25 09:17 25 MG Atorvastatin Calcium 20 mg HS PO 02/22/25 22:00 03/04/25 21:22 20 MG Amitriptyline HCl 50 mg HS PO 02/22/25 22:00 03/04/25 21:23 50 MG Levothyroxine Sodium 75 mcg QAM@0600 PO 02/23/25 06:00 03/05/25 05:06 75 MCG Hydralazine HCl 10 mg Q6HP PRN IV 02/23/25 13:30 03/04/25 06:19 10 MG Acetaminophen/ Hydrocodone Bitart 1 tab Q6HPRN PRN PO 03/03/25 12:15 03/05/25 05:07 1 TAB Ciprofloxacin 500 mg Q12HR PO 03/03/25 22:00 03/05/25 09:16 500 MG Laboratory Results Laboratory Tests 03/04/25 05:59 Urinalysis Test 02/22/25 14:51 Urine Color Colorless (Yellow) Urine Clarity Clear (Clear) Urine pH 7.0 (5.0-9.0) Urine Specific Jean 1.005 (1.001-1.035) Urine Protein Negative (Negative) Urine Ketones Negative (Negative) Urine Blood Trace /uL (Negative) H Urine Nitrite Negative (Negative) Urine Bilirubin Negative (Negative) Urine Urobilinogen Normal mg/dL (Negative) Urine Leukocyte Esterase Negative /uL (Negative) Urine RBC 1 /hpf (0 - 4) Urine Microscopic WBC 1 /HPF (0-5) Urine Squamous Epithelial Cells Few /hpf (<5) Urine Bacteria None seen /hpf (None Seen) Urine Glucose Normal mg/dL (Normal) Microbiology Microbiology Date/Time Source Procedure Growth Status 02/25/25 16:15 Knee Right Gram Stain - Final Complete 02/25/25 16:15 Knee Right Wound Culture - Final Complete 02/20/25 11:28 Blood Blood Culture - Final NO GROWTH AFTER 5 DAYS OF INCUBATION. Complete Labs and/or images reviewed: Labs reviewed by me, Image(s) reviewed by me Assessment/Plan Assessment/Plan Impression: -Infected right knee with pseudomonas -Anxiety -CAD with stent placement -Chronic Diastolic heart failure -Primary HTN -Dyslipidemia -? BRYAN/VMN Plan: -Continue abx -Antihypertensives -DC with Hospice today. Total time spent with patient: 35min. Plan discussed with: Patient, Other (RN) Date of Service: Mar 05, 2025 Billing Provider: FRANKIE MUSTAFA NP Common Visit Codes: [id number] INP/OBS CARE(HIGH) FRANKIE MUSTAFA NP Mar 05, 2025 12:50
[2025-03-05 13:00] VITALS: BP 156/74; PULSE 67; RESP 17; TEMP 97.5; O2SAT 97
[2025-03-05 17:00] VITALS: BP 141/75; PULSE 62; RESP 17; TEMP 98.1; O2SAT 99
== END 2025-03-05 17:30 | disposition hospice, home (50) | DRG 559 ==
LOC: ER 10:30 → EDBD 10:30 → OVERFLOW 13:46 → WEST WING 23:56
PROVIDERS: ADMIT Nurse Practitioner Acute Care; ATTEND Nurse Practitioner Acute Care
DX: T84.53XA Infection and inflammatory reaction due to internal right knee prosthesis, initial encounter (principal); G93.41 Metabolic encephalopathy; I13.0 Hypertensive heart and chronic kidney disease with heart failure and stage 1 through stage 4 chronic kidney disease, or unspecified chronic kidney disease; I50.32 Chronic diastolic (congestive) heart failure; L03.115 Cellulitis of right lower limb; R64 Cachexia; E87.6 Hypokalemia; B96.5 Pseudomonas (aeruginosa) (mallei) (pseudomallei) as the cause of diseases classified elsewhere; I25.10 Atherosclerotic heart disease of native coronary artery without angina pectoris; E78.5 Hyperlipidemia, unspecified; N18.9 Chronic kidney disease, unspecified; F41.9 Anxiety disorder, unspecified; F32.A Depression, unspecified; K21.9 Gastro-esophageal reflux disease without esophagitis; Z96.651 Presence of right artificial knee joint; D64.9 Anemia, unspecified; E03.9 Hypothyroidism, unspecified; Y83.1 Surgical operation with implant of artificial internal device as the cause of abnormal reaction of the patient, or of later complication, without mention of misadventure at the time of the procedure; I48.91 Unspecified atrial fibrillation; Z68.21 Body mass index [BMI] 21.0-21.9, adult; Z90.710 Acquired absence of both cervix and uterus; Z90.49 Acquired absence of other specified parts of digestive tract; Z80.8 Family history of malignant neoplasm of other organs or systems; Z80.6 Family history of leukemia; Z80.1 Family history of malignant neoplasm of trachea, bronchus and lung; Z82.49 Family history of ischemic heart disease and other diseases of the circulatory system; Y92.89 Other specified places as the place of occurrence of the external cause; Z95.5 Presence of coronary angioplasty implant and graft; Z79.82 Long term (current) use of aspirin; Z79.899 Other long term (current) drug therapy
CPT/HCPCS: 36415; 71045; 73560; 76881; 77002; 80048; 80053; 80202; 81001; 82565; 82962; 83605; 85025; 85610; 85730; 86141; 87040; 87081; 93971; 97110; 97116; 97163; G0378; J0692; J1756; J1885; J2003; J2405; J2543